=== PATIENT | female | born 1975 | race Caucasian/White ===

== ENCOUNTER 2020-01-26 08:23 | Emergency (ER) | payer BC, SELFPAY ==
[2020-01-26 08:43] VITALS: BP 139/92; PULSE 112; RESP 18; TEMP 37.1; O2SAT 98; BMI 40.4
--- NOTE | 2020-01-26 09:40 | ED.GENADULT ---
HPI - General Adult General Chief complaint: General Medical Stated complaint: CHEST PAIN Time Seen by Provider: 01/26/20 12:22 History of Present Illness HPI narrative: patient presents to ED for sharp like chest pain for the past 3 days. Patient denies any chest pain on inspiration. Patient states no coughing, fever, or chills. Patient states pain radiating down arm and going up to the jaw. Patient denies any swelling of lower extremities, calf pain, coughing up blood, recent long travel, recent surgery, control use, or recent trauma. Related Data Allergies Allergy/AdvReac Type Severity Reaction Status Date / Time amoxicillin [From AUGMENTIN] Allergy Severe ANAPHYLAXIS Verified 01/26/20 08:49 cephalexin [CEPHALEXIN] Allergy Severe SWELLING Verified 01/26/20 08:49 clavulanic acid Allergy Severe ANAPHYLAXIS Verified 01/26/20 08:49 [From AUGMENTIN] clindamycin [CLINDAMYCIN] Allergy Severe TONGUE Verified 01/26/20 08:49 SWELLING codeine Allergy Severe PASSED OUT Verified 01/26/20 08:49 influenza virus vaccine, Allergy Severe ANAPHYLAXIS Verified 01/26/20 08:49 specific [FLU VACCINE] fluconazole Allergy Intermediate HIVES Verified 01/26/20 08:49 gentamicin [GENTAMICIN] Allergy Intermediate RASH Verified 01/26/20 08:49 oxycodone Allergy Intermediate SOB Verified 01/26/20 08:49 acetaminophen [Percocet] Allergy Unknown Difficulty Verified 01/26/20 08:49 Breathing Clindamycin HCl Allergy Unknown Anaphylaxis Verified 01/26/20 08:49 midazolam Allergy Unknown Vomiting Verified 01/26/20 08:49 seafood Allergy Unknown anaphylaxis Verified 01/26/20 08:49 Sulfa (Sulfonamide Allergy Unknown Vomiting Verified 01/26/20 08:49 Antibiotics) sulfamethoxazole Allergy Unknown UNKNOWN Verified 01/26/20 08:49 [From BACTRIM] trimethoprim [From BACTRIM] Allergy Unknown UNKNOWN Verified 01/26/20 08:49 From VERSED Allergy Severe SEVERE Uncoded 12/21/19 15:49 VOMITING bactrim Allergy Unknown oral Uncoded 12/06/19 00:00 swelling Codeine Phosphate Allergy Unknown Anaphylaxis Uncoded 01/26/20 08:49 CT Scan dye Allergy Unknown Anaphylaxis Uncoded 01/26/20 08:49 DEFINITY Allergy Unknown Anaphylaxis Uncoded 01/26/20 08:49 diflucan Allergy Unknown hives Uncoded 12/06/19 00:00 flu vaccine Allergy Unknown anaphylaxis Uncoded 12/06/19 00:00 Gentamicin Sulfate Allergy Unknown Vomiting Uncoded 01/26/20 08:49 versed Allergy Unknown vomiting Uncoded 12/06/19 00:00 Review of Systems Review of Systems: Patient admits to sharp stabbing chest pain. Patient denies any shortness of breath on inspiration, patient denies any chest pain on inspiration, coughing up blood, swelling of lower extremities, calf pain, fever, chills, night sweats, weakness, abdominal pain, diarrhea, nausea, or vomiting. [facility] Past Medical History Medical History (Updated 01/26/20 @ 12:39 by BRITNEY Chao) Asthma Carotid artery disease Fibromyalgia HTN (hypertension) Kidney stones Migraine PAC (premature atrial contraction) PVC (premature ventricular contraction) Vertigo Surgical History (Updated 01/26/20 @ 08:51 by Ana Phelps) History of partial hysterectomy Social History Social History Alcohol intake: never Smoked in Last 30 Days: No Use of substances other than those prescribed or required for medical reasons: No Advance Directives: No Advance Directives Information Provided: Yes Physical Exam Vital Signs: Vital Signs: Vital Signs Temp Pulse Resp BP Pulse Ox 01/26/20 08:43 98.8 F 112 H 18 139/92 H 98 Body Mass Index 40.4 Const: General: cooperative, healthy appearing, comfortable, no acute distress, well developed, alert and awake Orientation/consciousness: oriented to person, oriented to place, oriented to time and patient oriented x3 HENMT: Head: Yes normal to inspection Eyes: General: appearance normal, both eyes and all related structures Neck: Neck: Yes normal visual inspection, Yes full ROM and Yes no lymphadenopathy Chest: Chest palpation & inspection: normal inspection of the chest and normal palpation of entire chest wall Resp: Effort & Inspection: normal respiratory effort Cardio: Jugular venous distension: no JVD Heart sounds: S1 normal heart sound present and S2 normal heart sound present GI: Inspection: Yes normal to inspection and No abdominal wall ecchymosis Percussion: Yes normal to percussion : General: No CVA tenderness and Yes no CVA tenderness Back/Spine/Pelvis: Back: no CVA tenderness, No CVA tenderness and No back tenderness Skin: General skin exam: no rashes or lesions noted Neuro: General: oriented to person, oriented to place, oriented to time, patient oriented x3, gait normal and CN's II-XI intact bilaterally Cranial nerves: Yes CN's II-XII intact bilaterally Extrem: Other: Lower extremities negative for any swelling, pitting edema, or calf pain. Negative for any redness. Course Course Course Narrative: Patient will be evaluated for possible CT. EKG will be done, labs including troponin. Coags, and D-dimer. Reevaluation(s) Reevaluation #1: Patient's D-dimer came back negative at 265. Patient's perc score is 1. Patient states presently patient has no chest pain and likes to be discharged. 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 Patient troponin negative after 3 days of symptoms. HR 92 on monitor before discharge. Time: 12:36 Medical Decision Making MDM Narrative Medical decision making narrative: chest pain. history physical exam does not indicate CT or PE. Chest x-ray negative for pneumonia, pneumothorax, hemothorax. Lab Data Result diagrams: 01/26/20 10:15 01/26/20 10:15 Labs: Lab Results 01/26/20 01/26/20 01/26/20 Range/Units 10:15 10:15 10:15 WBC 10.9 H (4.8-10.8) X10*3/uL RBC 4.53 (4.20-5.50) X10*6/uL Hgb 13.1 (12.0-16.0) g/dl Hct 39.5 (37-47) % MCV 87.2 (80-98) fL MCH 28.9 (27.0-33.0) pg MCHC 33.2 (31.0-35.0) g/dl RDW 12.8 (11.0-16.0) % Plt Count 245 (160-400) X10*3/uL MPV 10.2 (9.4-12.3) fL Immature Gran % (Auto) 0.5 H (0.0-0.4) % Neut % (Auto) 68.8 (45-73) % Lymph % (Auto) 16.7 L (20-40) % [place] % (Auto) 4.8 (2-11) % Eos % (Auto) 8.4 H (0-4) % Baso % (Auto) 0.8 (0-2) % Lymph # (Auto) 1.8 (1.2-4.9) X10*3/uL [place] # (Auto) 0.5 (0.1-1.2) X10*3/uL Eos # (Auto) 0.9 H (0.0-0.4) X10*3/uL Baso # (Auto) 0.1 (0.0-0.2) X10*3/uL Abs Immat Gran (auto) 0.06 H (0.00-0.03) X10*3/uL Absolute Neuts (auto) 7.5 (2.0-8.3) X10*3/uL Absolute Nucleated RBC 0.000 (0.0-0.012) X10*3/uL Nucleated RBC % (auto) 0.0 (0.0-0.2) /100WBC PT 12.6 (10.8-13.0) SEC INR 1.1 (0.9-1.1) APTT 31.3 (24.1-38.0) SEC D-Dimer 265 NG/ML Sodium 139 (135-145) mmol/L Potassium 3.9 (3.3-5.1) mmol/l Chloride 106 (96-108) mmol/L Carbon Dioxide 25 (22-29) mmol/L Anion Gap 12 (12-20) BUN 11 (9-16) mg/dL Creatinine 0.80 (0.5-1.4) mg/dL Estim Creat Clear Calc 96.2 Estimated GFR > 60 Random Glucose 84 (60-115) mg/dL Calcium 8.3 L (8.4-10.2) mg/dL Total Bilirubin 0.7 (0.0-1.0) mg/dL AST 16 (5-31) U/L ALT 19 (0-31) U/L Alkaline Phosphatase 102 (39-117) U/L Troponin I High Sens (<3.5-17.0) ng/L Total Protein 6.8 (6.5-8.0) g/dL Albumin 3.9 (3.5-5.0) g/dL Beta HCG, Quant < 2 mIU/mL 01/26/20 Range/Units 10:15 WBC (4.8-10.8) X10*3/uL RBC (4.20-5.50) X10*6/uL Hgb (12.0-16.0) g/dl Hct (37-47) % MCV (80-98) fL MCH (27.0-33.0) pg MCHC (31.0-35.0) g/dl RDW (11.0-16.0) % Plt Count (160-400) X10*3/uL MPV (9.4-12.3) fL Immature Gran % (Auto) (0.0-0.4) % Neut % (Auto) (45-73) % Lymph % (Auto) (20-40) % [place] % (Auto) (2-11) % Eos % (Auto) (0-4) % Baso % (Auto) (0-2) % Lymph # (Auto) (1.2-4.9) X10*3/uL [place] # (Auto) (0.1-1.2) X10*3/uL Eos # (Auto) (0.0-0.4) X10*3/uL Baso # (Auto) (0.0-0.2) X10*3/uL Abs Immat Gran (auto) (0.00-0.03) X10*3/uL Absolute Neuts (auto) (2.0-8.3) X10*3/uL Absolute Nucleated RBC (0.0-0.012) X10*3/uL Nucleated RBC % (auto) (0.0-0.2) /100WBC PT (10.8-13.0) SEC INR (0.9-1.1) APTT (24.1-38.0) SEC D-Dimer NG/ML Sodium (135-145) mmol/L Potassium (3.3-5.1) mmol/l Chloride (96-108) mmol/L Carbon Dioxide (22-29) mmol/L Anion Gap (12-20) BUN (9-16) mg/dL Creatinine (0.5-1.4) mg/dL Estim Creat Clear Calc Estimated GFR Random Glucose (60-115) mg/dL Calcium (8.4-10.2) mg/dL Total Bilirubin (0.0-1.0) mg/dL AST (5-31) U/L ALT (0-31) U/L Alkaline Phosphatase (39-117) U/L Troponin I High Sens < 3.5 (<3.5-17.0) ng/L Total Protein (6.5-8.0) g/dL Albumin (3.5-5.0) g/dL Beta HCG, Quant mIU/mL ECG Data Interpretation: Sinus tachycardia, ventricular rate 102, QRS 76, RI interval 130. Old T-wave abnormality in inferior leads. Discharge Plan Discharge Clinical Impression: Chest pain Patient Disposition: Elopement Instructions: Chest Pain (ED) Additional Instructions: Return to the ED immediately for worsening chest pain, shortness of breath, chest pain on exertion, swelling of lower extremities, calf pain, coughing up blood, fever, chills, severe chest pain on inspiration, or any other concerning symptoms. Referrals: Mitchell Denton MD [Physician] - 2 days ( Chest pain. Troponin negative after 3 days. D-dimer negative. Chest x-ray normal) Interventions: ED Discharge Assessment Last Done: 01/26/20 12:53 Discharge Date/Time: 01/26/20 12:54 Print Language: Serbian
--- NOTE | 2020-01-26 09:45 | ECG_ITS ---
Test Reason : CP Blood Pressure : / mmHG Vent. Rate : 102 BPM Atrial Rate : 102 BPM P-R Int : 130 ms QRS Dur : 076 ms QT Int : 330 ms P-R-T Axes : 022 007 -20 degrees QTc Int : 430 ms Sinus tachycardia Nonspecific ST abnormality Lateral leads Nonspecific T wave abnormality Inferior leads Abnormal ECG When compared with ECG of 26-FEB-2019 17:31, No significant change was found Referred By: Tirso Barr Electronically Signed By:AARON MCDANIELS MD
--- NOTE | 2020-01-26 09:45 | XR_ITS ---
EXAMINATION: XR CHEST CLINICAL INFORMATION: Chest pain COMPARISON: February 26, 2019 TECHNIQUE: 2 views of the chest were obtained. FINDINGS: No significant abnormality is noted involving the heart, lungs, mediastinum, bony thorax or soft tissues. XR/XR chest 2V IMPRESSION: No acute disease.
[2020-01-26 10:21] LABS: MANUAL DIFF FLAG NO
[2020-01-26 10:30] LABS: Basophils Absolute Auto 0.1 X10*3/uL (0.0-0.2); Basophils Percent Auto 0.8 % (0-2); Eosinophils Absolute Auto 0.9 X10*3/uL (0.0-0.4); Eosinophils Percent Auto 8.4 % (0-4); Hematocrit 39.5 % (37-47); Hemoglobin 13.1 g/dl (12.0-16.0); Imm Gran Abs Auto 0.06 X10*3/uL (0.00-0.03); Imm Gran Pct Auto 0.5 % (0.0-0.4); Lymphocytes Absolute Auto 1.8 X10*3/uL (1.2-4.9); Lymphocytes Percent Auto 16.7 % (20-40); Mean Corpuscular HGB Conc 33.2 g/dl (31.0-35.0); Mean Corpuscular Hemoglobin 28.9 pg (27.0-33.0); Mean Corpuscular Volume 87.2 fL (80-98); Mean Platelet Volume 10.2 fL (9.4-12.3); Monocytes Absolute Auto 0.5 X10*3/uL (0.1-1.2); Monocytes Percent Auto 4.8 % (2-11); Neutrophils Absolute Auto 7.5 X10*3/uL (2.0-8.3); Neutrophils Percent Auto 68.8 % (45-73); Platelet Count 245 X10*3/uL (160-400); Red Blood Count 4.53 X10*6/uL (4.20-5.50); Red Cell Distribution Width 12.8 % (11.0-16.0); White Blood Count 10.9 X10*3/uL (4.8-10.8)
[2020-01-26 10:38] LABS: INTERNATIONAL NORM RATIO 1.1 (0.9-1.1); Prothrombin Time 12.6 SEC (10.8-13.0)
[2020-01-26 10:40] LABS: Partial Thromboplastin Time 31.3 SEC (24.1-38.0)
[2020-01-26 10:41] LABS: D Dimer 265 NG/ML
[2020-01-26 10:44] LABS: Alanine Aminotransferase 19 U/L (0-31); Albumin Level 3.9 g/dL (3.5-5.0); Alkaline Phosphatase 102 U/L (39-117); Anion Gap 12 (12-20); Aspartate Amino Transferase 16 U/L (5-31); Bilirubin Total 0.7 mg/dL (0.0-1.0); Blood Urea Nitrogen 11 mg/dL (9-16); Calcium 8.3 mg/dL (8.4-10.2); Carbon Dioxide 25 mmol/L (22-29); Chloride 106 mmol/L (96-108); Creatinine Clr Calc Pharmacy 96.2; Estimated Glomerular Filt Rate > 60; Glucose Random 84 mg/dL (60-115); Potassium 3.9 mmol/l (3.3-5.1); Sodium 139 mmol/L (135-145); Total Protein 6.8 g/dL (6.5-8.0)
[2020-01-26 10:50] LABS: HCG Quantitative < 2 mIU/mL; Troponin-I High Sensitivity < 3.5 ng/L (<3.5-17.0)
== END 2020-01-26 12:54 | disposition left against medical advice (07) ==
PROVIDERS: Physician Assistant; Emergency Provider Emergency Medicine
DX: R07.9 Chest pain, unspecified (principal); I10 Essential (primary) hypertension; J45.909 Unspecified asthma, uncomplicated
CPT/HCPCS: 36415; 71046; 80053; 84484; 84702; 85025; 85379; 85610; 85730; 93005; 99284

== ENCOUNTER → 2020-02-05 08:21 | Outpatient (BNVA) | payer BC, SELFPAY | PROVIDERS: Visit Provider Internal Medicine | DX: R00.2 Palpitations (principal); R07.89 Other chest pain; I47.2 Ventricular tachycardia; I49.1 Atrial premature depolarization; I10 Essential (primary) hypertension; Z79.2 Long term (current) use of antibiotics; Z79.899 Other long term (current) drug therapy ==

== ENCOUNTER → 2020-05-21 08:26 | Outpatient (BNVA) | payer BC, SELFPAY | PROVIDERS: Visit Provider Internal Medicine ==

== ENCOUNTER → 2020-05-27 11:08 | Outpatient (BNVA) | payer BC, SELFPAY | PROVIDERS: PCP Nurse Practitioner Gerontology; Visit Provider Internal Medicine Gastroenterology ==

== ENCOUNTER 2020-06-02 13:00 | Outpatient (REF) | payer BC, SELFPAY ==
[2020-06-04 14:12] LABS: FIT Int Ctl YES; FIT1 NEGATIVE (NEGATIVE); FIT2 NEGATIVE (NEGATIVE)
== END 2020-06-02 13:01 | disposition home or self-care (01) ==
LOC: HO.LNP 13:00
PROVIDERS: Visit Provider Internal Medicine Gastroenterology
DX: Z12.11 Encounter for screening for malignant neoplasm of colon (principal)
CPT/HCPCS: 82274

== ENCOUNTER 2020-06-18 19:17 | Emergency (ER) | payer BC, SELFPAY ==
--- NOTE | ~2020-06-18 | CT_ITS ---
EXAMINATION: CT HEAD WITHOUT CONTRAST CLINICAL INFORMATION: Severe headaches. COMPARISON: MRI from 07/11/2015. TECHNIQUE: Contiguous axial imaging was performed from the skull base to vertex without intravenous administration of contrast. This CT examination was performed using dose optimization techniques as appropriate, variously including the following: *Automated exposure control *Adjustment of mA and/or kV according to patient size (this includes techniques or standardized protocols for targeted exams where dose is matched to indication/reason for exam; i.e. extremities or head) *Use of iterative reconstruction technique DLP: 762 mGy-cm FINDINGS: There is no evidence of acute intracranial hemorrhage or territorial infarction. No abnormal mass effect or midline shift is seen. [place] to white matter differentiation is well preserved. No extra-axial fluid collections are identified. The ventricles are normal in size. There is no abnormal attenuation within the brain parenchyma. The osseous structures and soft tissues are normal. The mastoid air cells and visualized portions of the paranasal sinuses are well aerated. CT/CT head/brain wo con IMPRESSION: No acute intracranial pathology. Normal CT scan of the head.
[2020-06-18 19:21] VITALS: BP 162/81; PULSE 104; RESP 18; TEMP 36.7; O2SAT 100; BMI 40.4
[2020-06-18 21:41] VITALS: BP 147/94; PULSE 95; RESP 19; TEMP 36.5; O2SAT 98
--- NOTE | 2020-06-18 22:11 | ED.GENADULT ---
HPI - General Adult General Chief complaint: Headache Stated complaint: HIGH BP Time Seen by Provider: 06/18/20 21:49 Source: patient Mode of arrival: ambulatory Limitations: no limitations History of Present Illness HPI narrative: Patient comes emergency room complaining of high blood pressure and headache. Patient states that she is being seen by Cardiology for high blood pressure, she takes diltiazem 120 mg twice a day and p.r.n. losartan. This afternoon, patient's blood pressure was in the 170s, did take losartan in addition to her diltiazem, did not bring the pressure down, started having a headache. Patient states she also had chest pressure while her blood pressure was elevated. Patient called her instantizer operator who instructed her to come to the emergency room. Patient states she is concerned about headaches because she has history of an aneurysm, she is scheduled for an MRI in the next couple of days. Related Data Home Medications Medication Instructions Recorded Confirmed diltiazem HCl 120 mg 120 mg PO BID 02/05/20 06/18/20 capsule,extended release 24 hr ibuprofen 800 mg tablet 800 mg PO TID PRN 02/05/20 06/18/20 losartan 25 mg tablet 25 mg PO DAILY PRN 02/05/20 06/18/20 meclizine 1 tab PO TID PRN 06/18/20 06/18/20 Previous Rx's Medication Instructions Recorded sumatriptan succinate [Imitrex] 25 mg PO Q2-4H PRN #7 tab 06/18/20 Allergies Allergy/AdvReac Type Severity Reaction Status Date / Time amoxicillin [From AUGMENTIN] Allergy Severe ANAPHYLAXIS Verified 06/18/20 19:20 cephalexin [CEPHALEXIN] Allergy Severe SWELLING Verified 06/18/20 19:20 clavulanic acid Allergy Severe ANAPHYLAXIS Verified 06/18/20 19:20 [From AUGMENTIN] clindamycin [CLINDAMYCIN] Allergy Severe TONGUE Verified 06/18/20 19:20 SWELLING codeine Allergy Severe PASSED OUT Verified 06/18/20 19:20 influenza virus vaccine, Allergy Severe ANAPHYLAXIS Verified 06/18/20 19:20 specific [FLU VACCINE] fluconazole Allergy Intermediate HIVES Verified 06/18/20 19:20 gentamicin [GENTAMICIN] Allergy Intermediate RASH Verified 06/18/20 19:20 oxycodone Allergy Intermediate SOB Verified 06/18/20 19:20 sulfamethoxazole Allergy Mild swelling Verified 06/18/20 19:20 [From Bactrim] trimethoprim [From Bactrim] Allergy Mild swelling Verified 06/18/20 19:20 acetaminophen [Percocet] Allergy Unknown Difficulty Verified 06/18/20 19:20 Breathing midazolam Allergy Unknown Vomiting Verified 06/18/20 19:20 seafood Allergy Unknown anaphylaxis Verified 06/18/20 19:20 Sulfa (Sulfonamide Allergy Unknown Vomiting Verified 06/18/20 19:20 Antibiotics) perflutren [From Definity] Allergy hives Verified 06/18/20 19:20 From VERSED Allergy Severe SEVERE Uncoded 05/21/20 08:[address] Scan dye Allergy Unknown Anaphylaxis Uncoded 05/21/20 08:28 Review of Systems Review of Systems: Constitutional : No Weight loss, No Fever, No Chills, No Night Sweats, No Fatigue, No Malaise ENT/Mouth : No Hearing loss, No Ear Pain, No Nasal Congestion, No Sinus Pain, No Hoarseness, No sore throat, No Rhinorrhea, No Swallowing Difficulty Eyes: No Eye Pain, No Swelling, No Redness, No Foreign Body, No Discharge, No Vision Changes Cardiovascular : Episode of chest pain while having hypertension, now resolved, No SOB, No Dyspnea on Exertion, No Orthopnea, No Edema, No Palpitations Respiratory : No Cough, No Sputum, No Wheezing, No Smoke Exposure, No Dyspnea Gastrointestinal : No Nausea, No Vomiting, No Diarrhea, No Constipation, No abdominal Pain, No Hematochezia, No Melena Genitourinary : no irregular bleeding, No Dysuria, No Urinary Frequency, No Hematuria, No Urinary Incontinence, No Urgency, No Flank Pain, No Urinary Flow Changes, No Hesitancy Musculoskeletal : No joint pain, No Myalgias, No Joint Swelling Skin : No Skin Lesions, No rash Neuro : No Weakness, No Numbness, No Paresthesias, No Loss of Consciousness, No Dizziness, complaining of headache while blood pressure was elevated Psych : No Anxiety/Panic, No Depression, No SI/HI/AH/VH, No Social Issues, Heme/Lymph: No Bruising, No Bleeding,No Lymphadenopathy Endocrine : No Polyuria, No Polydipsia, No Temperature Intolerance PMFSH Past Medical History Medical History (Updated 06/18/20 @ 23:49 by Misti Culver MD) Abdominal pain Asthma Atypical chest pain Carotid artery disease Essential hypertension Fibromyalgia H/O ganglion cyst HTN (hypertension) Kidney stones Migraine Morbid obesity with BMI of 40.0-44.9, adult NSVT (nonsustained ventricular tachycardia) PAC (premature atrial contraction) Palpitations PVC (premature ventricular contraction) Vertigo Surgical History History of partial hysterectomy Family History Family History (Updated 05/27/20 @ 11:34 by Anne Marie Cloud) Father Skin cancer Cardiovascular disease Myocardial infarction Hypertension IBS (irritable bowel syndrome) Mother Hypertension Sister Myocardial infarction Hypertension Heartburn Paternal Uncle Colon cancer Paternal Grandmother Colon cancer Social History Social History (Updated 05/27/20 @ 11:35 by Anne Marie Cloud) Household Members: Children Alcohol intake: current Alcohol intake frequency: does not drink Smoking Status: Never smoker Advance Directives: No Advance Directives Information Provided: Yes Physical Exam Vital Signs: Vital Signs: Last Vital Signs Temp 97.7 F 06/18/20 21:41 Pulse 88 06/18/20 22:59 Resp 16 06/18/20 22:59 BP 127/88 06/18/20 22:59 Pulse Ox 98 06/18/20 22:59 Body Mass Index 40.4 Appearance: Alert. Oriented X3. No acute distress. Eyes: Pupils equal, round and reactive to light. ENT: Pharynx normal. Neck: Normal inspection. Neck supple. No lymph nodes noted. No crepitus CVS: Normal heart rate and rhythm. Pulses normal. Respiratory: No respiratory distress. Breath sounds normal. No Wheezing. No rales Abdomen: Soft and nontender. No rigidity. No distention. Skin: Skin warm and dry. Normal skin color. Normal skin turgor. Extremities: No lower extremity edema. No lower extremity edema. No Lacerations. No Rash Neuro: Oriented X 3. No motor deficit. No sensory deficit. Moving all extermities. No slurred speech. Course Course Course Narrative: Patient states that she feels much better, patient states that she has had Imitrex in the past, and usually works well for her migraines. Patient has no chest pain, no shortness of breath, patient states she feels very well now. Medical Decision Making Lab Data Result diagrams: 06/18/20 22:36 06/18/20 22:35 Labs: Lab Results 06/18/20 06/18/2021 Range/Units 22:35 22:35 22:36 WBC 12.5 H (4.8-10.8) X10*3/uL RBC 4.52 (4.20-5.50) X10*6/uL Hgb 13.5 (12.0-16.0) g/dl Hct 40.3 (37-47) % MCV 89.2 (80-98) fL MCH 29.9 (27.0-33.0) pg MCHC 33.5 (31.0-35.0) g/dl RDW 12.9 (11.0-16.0) % Plt Count 275 (160-400) X10*3/uL MPV 9.9 (9.4-12.3) fL Immature Gran % (Auto) 0.5 H (0.0-0.4) % Neut % (Auto) 65.0 (45-73) % Lymph % (Auto) 24.3 (20-40) % [place] % (Auto) 5.9 (2-11) % Eos % (Auto) 3.7 (0-4) % Baso % (Auto) 0.6 (0-2) % Lymph # (Auto) 3.1 (1.2-4.9) X10*3/uL [place] # (Auto) 0.7 (0.1-1.2) X10*3/uL Eos # (Auto) 0.5 H (0.0-0.4) X10*3/uL Baso # (Auto) 0.1 (0.0-0.2) X10*3/uL Abs Immat Gran (auto) 0.06 H (0.00-0.03) X10*3/uL Absolute Neuts (auto) 8.1 (2.0-8.3) X10*3/uL Absolute Nucleated RBC 0.000 (0.0-0.012) X10*3/uL Nucleated RBC % (auto) 0.0 (0.0-0.2) /100WBC Sodium 139 (135-145) mmol/L Potassium 3.9 (3.3-5.1) mmol/L Chloride 106 (96-108) mmol/L Carbon Dioxide 24 (22-29) mmol/L Anion Gap 13 (12-20) BUN 15 (9-16) mg/dL Creatinine 0.74 (0.5-1.4) mg/dL Estim Creat Clear Calc 104.0 Estimated GFR > 60 Random Glucose 76 (60-115) mg/dL Calcium 8.8 D (8.4-10.2) mg/dL Troponin I High Sens < 3.5 (<3.5-17.0) ng/L Imaging Data CT scan - head: Radiologist's impression: There is no evidence of acute intracranial hemorrhage or territorial infarction. No abnormal mass effect or midline shift is seen. [place] to white matter differentiation is well preserved. No extra-axial fluid collections are identified. The ventricles are normal in size. There is no abnormal attenuation within the brain parenchyma. The osseous structures and soft tissues are normal. The mastoid air cells and visualized portions of the paranasal sinuses are well aerated. CT/CT head/brain wo con IMPRESSION: No acute intracranial pathology. Normal CT scan of the head. ECG Data Attestation: I personally reviewed and interpreted this ECG as follows: (Sinus rhythm, heart rate 88, no academic affairs assistant depression or elevation, nonspecific T-wave inversion in lead 3, QTC 440) Discharge Plan Discharge Clinical Impression: Migraine Qualifiers: Migraine type: unspecified Status migrainosus presence: without status migrainosus Intractability: not intractable Qualified Code(s): G43.909 - Migraine, unspecified, not intractable, without status migrainosus Hypertension Qualifiers: Hypertension type: unspecified Qualified Code(s): I10 - Essential (primary) hypertension Patient Disposition: Home, Self-Care Instructions: Migraine Headache (ED), Hypertension (ED) Additional Instructions: Please follow-up with your primary care physician tomorrow. If you have any worsening or new symptoms, please return to the emergency room or call 911 Prescriptions: New sumatriptan succinate [Imitrex] 25 mg tablet 25 mg PO Q2-4H PRN (Reason: migraine headache) Qty: 7 RF: 0 No Action meclizine 12.5 mg tablet 1 tab PO TID PRN (Reason: Vertigo) RF: 0 losartan 25 mg tablet 25 mg PO DAILY PRN (Reason: IF BLOOD PRESSURE STILL HIGH) RF: 0 ibuprofen 800 mg tablet 800 mg PO TID PRN (Reason: pain) RF: 0 diltiazem HCl 120 mg capsule,extended release 24hr 120 mg PO BID RF: 0
--- NOTE | 2020-06-18 22:14 | ECG_ITS ---
Test Reason : HEADACHE Blood Pressure : / mmHG Vent. Rate : 088 BPM Atrial Rate : 088 BPM P-R Int : 142 ms QRS Dur : 078 ms QT Int : 364 ms P-R-T Axes : 027 003 -02 degrees QTc Int : 440 ms Normal sinus rhythm Minimal voltage criteria for LVH, may be normal variant Borderline ECG When compared with ECG of 26-JAN-2020 08:35, Nonspecific T wave abnormality no longer evident in Anterior leads Referred By: Misti Culver Electronically Signed By:GUI UMAÑA MD
[2020-06-18 22:40] LABS: MANUAL DIFF FLAG NO
[2020-06-18 22:42] LABS: Basophils Absolute Auto 0.1 X10*3/uL (0.0-0.2); Basophils Percent Auto 0.6 % (0-2); Eosinophils Absolute Auto 0.5 X10*3/uL (0.0-0.4); Eosinophils Percent Auto 3.7 % (0-4); Hematocrit 40.3 % (37-47); Hemoglobin 13.5 g/dl (12.0-16.0); Imm Gran Abs Auto 0.06 X10*3/uL (0.00-0.03); Imm Gran Pct Auto 0.5 % (0.0-0.4); Lymphocytes Absolute Auto 3.1 X10*3/uL (1.2-4.9); Lymphocytes Percent Auto 24.3 % (20-40); Mean Corpuscular HGB Conc 33.5 g/dl (31.0-35.0); Mean Corpuscular Hemoglobin 29.9 pg (27.0-33.0); Mean Corpuscular Volume 89.2 fL (80-98); Mean Platelet Volume 9.9 fL (9.4-12.3); Monocytes Absolute Auto 0.7 X10*3/uL (0.1-1.2); Monocytes Percent Auto 5.9 % (2-11); Neutrophils Absolute Auto 8.1 X10*3/uL (2.0-8.3); Platelet Count 275 X10*3/uL (160-400); Red Blood Count 4.52 X10*6/uL (4.20-5.50); Red Cell Distribution Width 12.9 % (11.0-16.0); White Blood Count 12.5 X10*3/uL (4.8-10.8)
[2020-06-18 22:55] VITALS: RESP 18
[2020-06-18] MEDS: Morphine Sulfate 2 MG/ML CARTRIDGE IVPUSH (22:55)
[2020-06-18] MEDS: Metoclopramide HCl 10 MG/2 ML VIAL IVPUSH (22:55)
[2020-06-18 22:56] VITALS: BP 127/88; PULSE 88
[2020-06-18] MEDS: dilTIAZem HCL CD 120 MG CAP.ER.DEG PO (22:56)
[2020-06-18 22:59] VITALS: BP 127/88; PULSE 88; RESP 16; O2SAT 98
[2020-06-18 23:13] LABS: Anion Gap 13 (12-20); Blood Urea Nitrogen 15 mg/dL (9-16); Calcium 8.8 mg/dL (8.4-10.2); Carbon Dioxide 24 mmol/L (22-29); Chloride 106 mmol/L (96-108); Estimated Glomerular Filt Rate > 60; Glucose Random 76 mg/dL (60-115); Potassium 3.9 mmol/L (3.3-5.1); Sodium 139 mmol/L (135-145)
[2020-06-18 23:19] LABS: Troponin-I High Sensitivity < 3.5 ng/L (<3.5-17.0)
== END 2020-06-18 23:56 | disposition home or self-care (01) ==
PROVIDERS: Emergency Provider Emergency Medicine
DX: G43.909 Migraine, unspecified, not intractable, without status migrainosus (principal); I10 Essential (primary) hypertension
CPT/HCPCS: 36415; 70450; 80048; 84484; 85025; 93005; 96374; 96375; 99283; 99284; J2270; J2765

== ENCOUNTER → 2020-10-02 11:26 | Outpatient (BNVA) | payer BC, SELFPAY | PROVIDERS: PCP Nurse Practitioner Gerontology; Visit Provider Physician Assistant ==

== ENCOUNTER → 2020-10-09 12:25 | Outpatient (BNVA) | payer BC, SELFPAY | PROVIDERS: PCP Nurse Practitioner Gerontology; Referring Provider Nurse Practitioner Gerontology; Visit Provider Internal Medicine | DX: I49.1 Atrial premature depolarization (principal); I47.2 Ventricular tachycardia; I10 Essential (primary) hypertension; R00.2 Palpitations; R07.89 Other chest pain | CPT/HCPCS: 93005 ==

== ENCOUNTER 2020-10-28 07:07 | Outpatient (REF) | payer BC, SELFPAY ==
--- NOTE | ~2020-10-28 | US_ITS ---
EXAMINATION: US ABDOMEN LIMITED WITH LIVER ELASTOGRAPHY CLINICAL INFORMATION: Fatty liver COMPARISON: Previous CT of the abdomen and pelvis July 2017 TECHNIQUE: Real-time imaging of the abdominal viscera. Noninvasive ultrasound liver fibrosis assessment is performed using Foster ElastPQ point quantification shear wave elastography (pSWE) with a C5-2 MHz transducer. Multiple elastography samples are obtained. FINDINGS: PANCREAS: Normal. LIVER: Normal. The liver demonstrates normal size, contour and echogenicity. There are multiple liver cysts. Largest measures 7 x 6 x 9 mm in the right lobe. No intrahepatic biliary duct dilatation. The right lobe measures 13.4 cm in length. The left lobe measures 10.6 cm in length. Portal flow is normal/hepatopedal. LIVER ELASTOGRAPHY: 1.15 IQR divided by median: 0.15 GALLBLADDER: The gallbladder is normal in size. No gallstones are seen. The gallbladder is normal. COMMON BILE DUCT: The common bile duct is normal in caliber measuring 0.2 cm. RIGHT KIDNEY: The right kidney is normal in size, shape and contour. The right kidney measures 11.5 cm in length. There is a 9 mm cyst in the midpole. There is no ascites. US/US abdomen merino w elastography IMPRESSION: Multiple small liver cysts. Normal elastography exam/normal liver stiffness. REFERENCE: Society of Radiologists in Ultrasound Liver Stiffness Thresholds (2020): LIVER STIFFNESS THRESHOLDS: *Liver Stiffness equal or less than 1.3 m/s: High probability of being normal. *Liver Stiffness less than 1.7 m/s: In the absence of other known clinical signs, rules out compensated advanced chronic liver disease. *Liver Stiffness 1.7-2.1 m/s: Suggestive of compensated advanced chronic liver disease but need further test for confirmation. *Liver Stiffness over 2.1 m/s: Rules in compensated advanced chronic liver disease. *Liver Stiffness over 2.4 m/s: Suggestive of clinically significant portal hypertension. QUALITY OF DATA SET: *IQR/Median value equal or less than 0.15 implies a quality data set. *IQR/Median value over 0.15 implies a poor quality data set. SIGNIFICANT CHANGE FROM PRIOR EXAM: Significant change if liver stiffness measurement is 10% or greater from prior exam. OTHER CONSIDERATIONS: The stage of liver fibrosis may be overestimated in the setting of acute hepatitis, liver inflammation, elevated liver function tests, hepatic vascular congestion, obstructive cholestasis, non-fasting state, and infiltrative diseases such as amyloidosis and lymphoma. In some patients with NAFLD, the liver stiffness thresholds for compensated advanced chronic liver disease may be lower. In causes other than viral hepatitis and NAFLD, liver stiffness thresholds are not well established.
[2020-10-28 07:57] LABS: Alanine Aminotransferase 26 U/L (0-31); Alkaline Phosphatase 107 U/L (39-117); Aspartate Amino Transferase 19 U/L (5-31); Bilirubin Direct 0.3 mg/dL (0.0-0.5); Bilirubin Total 0.8 mg/dL (0.0-1.0); Cholesterol 198 mg/dL; HDL Cholesterol 40 mg/dL; LDL Cholesterol Calculated 134 mg/dl; Total Protein 6.9 g/dL (6.5-8.0); Triglycerides 120 mg/dL
[2020-11-01 14:51] LABS: FIB-ALT 26 U/L (6-29); FIB-Alpha-2-Macroglobulin 90 mg/dL (106-279); FIB-Apolipoprotein A1 127 mg/dL (101-198); FIB-GGT 111 U/L (3-55); FIB-Haptoglobin 138 mg/dL (43-212); FIB-Total Bilirubin 0.7 mg/dL (0.2-1.2); Liver Fibrosis Score 0.11; Liver Fibrosis Stage F0; Nec Inflam Act Grade A0; Nec Inflam Act Score 0.09
== END 2020-10-28 07:08 | disposition home or self-care (01) ==
LOC: HO.US 07:07
PROVIDERS: PCP Nurse Practitioner Gerontology; Visit Provider Physician Assistant
DX: B19.20 Unspecified viral hepatitis C without hepatic coma (principal); R10.11 Right upper quadrant pain; K76.0 Fatty (change of) liver, not elsewhere classified; Z87.19 Personal history of other diseases of the digestive system
CPT/HCPCS: 36415; 76705; 76981; 80061; 80076; 81596

== ENCOUNTER → 2020-11-04 08:14 | Outpatient (BNVA) | payer BC, SELFPAY | PROVIDERS: PCP Nurse Practitioner Gerontology; Visit Provider Internal Medicine ==

== ENCOUNTER → 2020-11-04 11:26 | Outpatient (REF) | payer BC, SELFPAY ==
--- NOTE | 2020-11-04 11:32 | ECG_ITS ---
Hook-up date: 2020-11-04 08:42:00 Duration: 47:59:00 Test Indications: R00.2 - Palpitations Medications: 334246 QRS complexes 1 Ventricular ectopics which represent <1 % of total QRS comp. 1 Supraventricular ectopics which represent <1 % of total QRS comp. * Paced QRS complexs which represent % of total QRS comp. VENTRICULAR ECTOPY 1 Isolated 0 Bigeminal Cycles 0 Couplets 0 Runs 0 Beats in Runs * Beats LONGEST at * BPM at :: -- * Beats FASTEST at * BPM at :: -- SUPRAVENTRICULAR ECTOPY 1 Isolated 0 Couplets 0 Runs 0 Beats in Runs * Beats LONGEST at * BPM at :: -- * Beats FASTEST at * BPM at :: -- HEART RATES 60 MIN at 03:25:21 2020-11-06 82 AVG 128 MAX at 09:35:55 2020-11-04 LONGEST RR 1.1840 secs at 13:51:39 2020-11-05 S-T LEVELS Channel 1 - 128 mm at 08:42:00 2020-11-04 - 128 mm at 08:42:00 2020-11-04 Channel 2 - 128 mm at 08:42:00 2020-11-04 - 128 mm at 08:42:00 2020-11-04 Channel 3 - 128 mm at 02:80:11 -- - 128 mm at 02:80:11 Underlying rhythm is sinus; Average ventricular rate 82/min; range 60-128/min; No significant ectopy, tachy or bradyarrhythmias; Patient did not return diary Referred By: Jl Stoddard Overread By: JL STODDARD
== END ==
LOC: HO.CARD 11:26
PROVIDERS: Visit Provider Internal Medicine
DX: R00.2 Palpitations (principal); I47.2 Ventricular tachycardia
CPT/HCPCS: 93226

== ENCOUNTER 2020-11-07 07:59 | Outpatient (REF) | payer BC, SELFPAY ==
--- NOTE | ~2020-11-07 | MM_ITS ---
EXAMINATION: MM SCREENING DIGITAL BREAST TOMOSYNTHESIS, BILATERAL CLINICAL INFORMATION: Screening. Asymptomatic. The lifetime risk of breast cancer based on the Tyrer-Cuzick Model is 19%. COMPARISON: Mammography: 11/02/2019, 08/27/2018, 08/03/2017 TECHNIQUE: Digital breast tomosynthesis is performed in both the craniocaudal and mediolateral oblique views along with computer-aided detection (CAD). Synthesized 2D images are generated from the tomosynthesis. FINDINGS: There are scattered areas of fibroglandular density (ACR BI-RADS breast composition Category b). Breast tissue composition borders on predominantly fatty. Background stromal and fibroglandular densities similar to prior studies. There are numerous dermal calcifications again noted at the bilateral posterior medial breasts. Skin contours are smooth. No significant changes. MM/MM tomosynthesis screening BI IMPRESSION: No mammographic evidence of malignancy. ASSESSMENT: BI-RADS 2: Benign RECOMMENDATION: Routine annual mammography screening. This patient's information was entered into a reminder system with a target due date for their next mammogram.
== END 2020-11-07 08:00 | disposition home or self-care (01) ==
LOC: HO.MAMMO 07:59
PROVIDERS: PCP Nurse Practitioner Gerontology; Visit Provider Nurse Practitioner Gerontology
DX: Z12.31 Encounter for screening mammogram for malignant neoplasm of breast (principal)
CPT/HCPCS: 77063; 77067

== ENCOUNTER → 2020-11-19 13:56 | Outpatient (BNVA) | payer BC, SELFPAY | PROVIDERS: PCP Nurse Practitioner Gerontology; Visit Provider Internal Medicine ==

== ENCOUNTER → 2020-11-26 13:07 | Outpatient (BNVA) | payer BC, SELFPAY | PROVIDERS: Visit Provider Physician Assistant ==

== ENCOUNTER 2020-12-02 14:53 | Outpatient (REF) | payer BC, SELFPAY ==
--- NOTE | ~2020-12-02 | US_ITS ---
EXAMINATION: US SCREENING ULTRASOUND BREAST, BILATERAL CLINICAL INFORMATION: Screening ultrasound. COMPARISON: Bilateral digital breast tomosynthesis 11/07/2020, bilateral screening breast ultrasound 04/14/2018. TECHNIQUE: Ultrasound is performed using grayscale imaging and color Doppler. Imaging is performed to include the four quadrants and retroareolar region. Both breasts are imaged. FINDINGS: Right breast: There is no suspicious finding by ultrasound. There is no cystic or solid mass or focal architectural abnormality. No focal duct ectasia. No skin thickening. Left breast: There is no suspicious finding by ultrasound. There is no cystic or solid mass or focal architectural abnormality. No focal duct ectasia. No skin thickening. US/US breast RT complete IMPRESSION: Normal bilateral screening breast ultrasound. ASSESSMENT: BI-RADS 1: Negative RECOMMENDATION: Routine annual mammography screening. This patient's information was entered into a reminder system with a target due date for their next mammogram.
--- NOTE | ~2020-12-02 | US_ITS ---
EXAMINATION: US SCREENING ULTRASOUND BREAST, BILATERAL CLINICAL INFORMATION: Screening ultrasound. COMPARISON: Bilateral digital breast tomosynthesis 11/07/2020, bilateral screening breast ultrasound 04/14/2018. TECHNIQUE: Ultrasound is performed using grayscale imaging and color Doppler. Imaging is performed to include the four quadrants and retroareolar region. Both breasts are imaged. FINDINGS: Right breast: There is no suspicious finding by ultrasound. There is no cystic or solid mass or focal architectural abnormality. No focal duct ectasia. No skin thickening. Left breast: There is no suspicious finding by ultrasound. There is no cystic or solid mass or focal architectural abnormality. No focal duct ectasia. No skin thickening. US/US breast LT complete IMPRESSION: Normal bilateral screening breast ultrasound. ASSESSMENT: BI-RADS 1: Negative RECOMMENDATION: Routine annual mammography screening. This patient's information was entered into a reminder system with a target due date for their next mammogram.
== END 2020-12-02 14:54 | disposition home or self-care (01) ==
LOC: HO.MAMMO 14:53
PROVIDERS: Visit Provider Surgery
DX: Z91.89 Other specified personal risk factors, not elsewhere classified (principal); Z80.3 Family history of malignant neoplasm of breast
CPT/HCPCS: 76641

== ENCOUNTER → 2021-02-05 13:10 | Outpatient (BNVA) | payer BC, SELFPAY | PROVIDERS: Visit Provider Internal Medicine ==

== ENCOUNTER → 2021-05-09 09:05 | Outpatient (BNVA) | payer BC, SELFPAY | PROVIDERS: PCP Nurse Practitioner Gerontology ==

== ENCOUNTER → 2021-05-27 12:20 | Outpatient (BNVA) | payer BC, SELFPAY | PROVIDERS: PCP Nurse Practitioner Gerontology; Visit Provider Physician Assistant ==

== ENCOUNTER 2021-06-13 11:03 | Outpatient (REF) | payer BC, SELFPAY ==
--- NOTE | ~2021-06-13 | US_ITS ---
EXAMINATION: US RETROPERITONEAL LIMITED (RENAL ONLY) CLINICAL INFORMATION: Calculus of kidney. COMPARISON: US abdomen limited with liver elastography 10/28/2020. US retroperitoneal limited (renal only) 12/25/2019. XR abdomen KUB 10/05/2018 and 09/21/2018. CT abdomen and pelvis without contrast 07/06/2017. TECHNIQUE: Real-time imaging of the kidneys. FINDINGS: RIGHT KIDNEY: 12.1 x 4.1 x 4.0 cm (SAG x AP x TRV). The kidney is normal in size, contour, and echogenicity. Renal cortical thickness is normal. No focal parenchymal lesions or hydronephrosis. There is a 0.4 x 0.3 x 0.3 cm nonobstructing mid renal calculus. LEFT KIDNEY: 11.6 x 4.4 x 4.2 cm (SAG x AP x TRV). The kidney is normal in size, contour, and echogenicity. Renal cortical thickness is normal. No focal parenchymal lesions or hydronephrosis. There is a 0.5 x 0.3 x 0.3 cm upper renal nonobstructing calculus. There are other, smaller, punctate calculi present that are nonobstructing. US/US renal BI IMPRESSION: 1. There are bilateral nonobstructed kidneys. 2. There are bilateral nonobstructing calculi as described..
== END 2021-06-13 11:04 | disposition home or self-care (01) ==
LOC: HO.HMGCX 11:03
DX: R10.84 Generalized abdominal pain (principal); N20.0 Calculus of kidney
CPT/HCPCS: 76775

== ENCOUNTER 2021-06-13 14:31 | Emergency (ER) | payer BC, SELFPAY ==
--- NOTE | ~2021-06-13 | US_ITS ---
EXAMINATION: US VENOUS ULTRASOUND WITH DOPPLER LOWER EXTREMITY, BILATERAL CLINICAL INFORMATION: Pain. COMPARISON: None. TECHNIQUE: Ultrasound of the deep veins is performed from the hip to the calf with compression sonography and color and pulse Doppler assessment. Spectral analysis with color-flow imaging is performed. FINDINGS: RIGHT: There is normal venous compression and respiratory variation and augmented flow. The visualized common femoral vein, superficial femoral vein, profunda femoral vein, popliteal vein, and the trifurcation region shows no evidence of deep venous thrombosis. There is no significant popliteal fossa cyst. LEFT: There is normal venous compression and respiratory variation and augmented flow. The visualized common femoral vein, superficial femoral vein, profunda femoral vein, popliteal vein, and the trifurcation region shows no evidence of deep venous thrombosis. There is no significant popliteal fossa cyst. If the patient's symptoms persist, followup ultrasound in 5 days 7 days might be of value to exclude proximal propagation from a non-visualized calf vein. US/US venous duplex LE BI IMPRESSION: No DVT demonstrated in the bilateral lower extremities.
[2021-06-13 15:13] VITALS: BP 113/64; PULSE 83; RESP 18; TEMP 36.9; O2SAT 97; BMI 39.6
[2021-06-13 18:00] VITALS: BP 139/83; PULSE 79; RESP 16; O2SAT 95
--- NOTE | 2021-06-13 18:26 | ED.GENADULT ---
HPI - General Adult General Chief complaint: General Medical <Destniy Kunz NP - Last Filed: 06/13/21 20:25> Stated complaint: question blood clots in both calfs <Destiny Kunz NP - Last Filed: 06/13/21 20:25> Time Seen by Provider: 06/13/21 17:45 <Destiny Kunz NP - Last Filed: 06/13/21 20:25> Source: patient <Destiny Kunz NP - Last Filed: 06/13/21 20:25> Mode of arrival: ambulatory <Destiny Kunz NP - Last Filed: 06/13/21 20:25> Limitations: no limitations <Destiny Kunz NP - Last Filed: 06/13/21 20:25> History of Present Illness HPI narrative: 46-year-old female With a history of renal colic, fibromyalgia, hypertension here with reports of bilateral calf pain and burning sensations since last night. Patient tells me that she had COVID 1 month ago. Since recovering from COVID she has had intermittent chest pain and shortness of breath that is being followed by her primary care doctor. Today she had a chest x-ray and a V/Q scan that were negative for any signs of infection or pulmonary embolism. She reports last night she started to have pain in both of her legs. She has not had this prior to today. She did have a D-dimer yesterday that was positive and this is why her primary care doctor ordered V/Q scan. She denies any swelling of the legs, no fevers, chills. <Destiny Kunz NP - Last Filed: 06/13/21 20:25> Related Data Home medications: Home Medications Medication Instructions Recorded Confirmed ibuprofen 800 mg tablet 800 mg PO TID PRN 02/05/20 05/27/21 losartan 25 mg tablet 25 mg PO DAILY PRN 02/05/20 05/27/21 meclizine 12.5 mg tablet 1 tab PO TID PRN 06/18/20 05/27/21 albuterol sulfate 90 mcg/actuation 2 puff PO Q4H PRN 10/02/20 05/27/21 aerosol inhaler beclomethasone dipropionate 80 0 mcg INTRANASAL 10/02/20 05/27/21 mcg/actuation nasal HFA inhaler clobetasol 0.05 % topical cream g TOPICAL BID PRN 10/02/20 05/27/21 fluticasone 500 mcg-salmeterol 50 ea INHALATION 10/02/20 05/27/21 mcg/dose blistr powdr for inhalation levalbuterol HCl 0.63 mg/3 mL 0.63 mg INHALATION TID 10/02/20 05/27/21 solution for nebulization lorazepam 0.5 mg tablet 0.5 mg PO DAILY PRN 10/02/20 05/27/21 ondansetron HCl 4 mg tablet 4 mg PO TID 10/02/20 05/27/21 Previous Rx's Medication Instructions Recorded sumatriptan succinate 25 mg tablet 25 mg PO Q2-4H PRN #7 tab 06/18/20 (Imitrex) diltiazem HCl 120 mg 120 mg PO BID 90 Days #180 cap 03/13/21 capsule,extended release 24 hr pyridoxine (vitamin B6) 100 mg 100 mg PO DAILY 90 Days #90 tab 05/09/21 tablet <Destiny Kunz NP - Last Filed: 06/13/21 20:25> Allergies/adverse reactions: Allergies Allergy/AdvReac Type Severity Reaction Status Date / Time amoxicillin [From AUGMENTIN] Allergy Severe ANAPHYLAXIS Verified 06/13/21 15:13 cephalexin [CEPHALEXIN] Allergy Severe SWELLING Verified 06/13/21 15:13 clavulanic acid Allergy Severe ANAPHYLAXIS Verified 06/13/21 15:13 [From AUGMENTIN] clindamycin [CLINDAMYCIN] Allergy Severe TONGUE Verified 06/13/21 15:13 SWELLING codeine Allergy Severe PASSED OUT Verified 06/13/21 15:13 influenza virus vaccine, Allergy Severe ANAPHYLAXIS Verified 06/13/21 15:13 specific [FLU VACCINE] fluconazole Allergy Intermediate HIVES Verified 06/13/21 15:13 gentamicin [GENTAMICIN] Allergy Intermediate RASH Verified 06/13/21 15:13 oxycodone Allergy Intermediate SOB Verified 06/13/21 15:13 sulfamethoxazole Allergy Mild swelling Verified 06/13/21 15:13 [From Bactrim] trimethoprim [From Bactrim] Allergy Mild swelling Verified 06/13/21 15:13 midazolam Allergy Unknown Vomiting Verified 06/13/21 15:13 seafood Allergy Unknown anaphylaxis Verified 06/13/21 15:13 perflutren [From Definity] Allergy hives Verified 06/13/21 15:13 CT Scan dye Allergy Unknown Anaphylaxis Uncoded 05/09/21 09:06 <Destiny Kunz NP - Last Filed: 06/13/21 20:25> Review of Systems Review of Systems: Yes all other systems are reviewed and are negative <Destiny Kunz NP - Last Filed: 06/13/21 20:25> Constitutional: Constitutional: Reports no additional constitutional complaints, Denies body ache(s), Denies chills, Denies fever(s), Denies headache(s) and Denies weakness <Destiny Kunz NP - Last Filed: 06/13/21 20:25> Eyes: Eyes: Reports no additional eye complaints and Denies change in vision <Destiny Kunz NP - Last Filed: 06/13/21 20:25> ENT: Reports system reviewed and no additional complaints, except as documented, Denies dizziness, Denies headache(s), Denies nasal congestion, Denies nasal discharge and Denies neck pain <Destiny Kunz NP - Last Filed: 06/13/21 20:25> Cardiovascular: Cardiovascular: Reports no additional cardiovascular complaints, Denies chest pain, Denies leg edema and Denies dyspnea <Destiny Kunz NP - Last Filed: 06/13/21 20:25> Comments: +calf pain <Destiny Kunz NP - Last Filed: 06/13/21 20:25> Respiratory: Respiratory: Reports no additional respiratory complaints, Denies cough and Denies dyspnea <Destiny Kunz NP - Last Filed: 06/13/21 20:25> Gastrointestinal: Gastrointestinal: Reports no additional gastrointestinal complaints, Denies abdominal pain, Denies diarrhea, Denies nausea and Denies vomiting <Destiny Kunz NP - Last Filed: 06/13/21 20:25> Genitourinary: Genitourinary: Reports no additional female genitourinary complaints and Denies urinary incontinence <Destiny Kunz NP - Last Filed: 06/13/21 20:25> Musculoskeletal: Musculoskeletal: Reports no additional musculoskeletal complaints, Denies back pain, Denies arthralgias, Denies joint swelling, Denies neck pain, Denies numbness and Denies tingling <Destiny Kunz NP - Last Filed: 06/13/21 20:25> Integumentary/Breasts: Skin/Breast: Reports system reviewed and no additional complaints, except as docu and Denies rash <Destiny Kunz NP - Last Filed: 06/13/21 20:25> Neurologic: Reports system reviewed and no additional complaints, except as documented, Denies dizziness, Denies headache(s), Denies numbness, Denies tingling and Denies weakness <Detsiny Kunz NP - Last Filed: 06/13/21 20:25> [facility] Past Medical History Attestation statement: The following information was validated with the patient. <Destiny Kunz NP - Last Filed: 06/13/21 20:25> Source: old records reviewed and nursing notes reviewed <Destiny Kunz NP - Last Filed: 06/13/21 20:25> Medical History: Medical History Abdominal pain Asthma Atypical chest pain Carotid artery disease Essential hypertension Fibromyalgia H/O ganglion cyst HTN (hypertension) Kidney stones Migraine Morbid obesity with BMI of 40.0-44.9, adult NAFLD (nonalcoholic fatty liver disease) NSVT (nonsustained ventricular tachycardia) PAC (premature atrial contraction) Palpitations PVC (premature ventricular contraction) Vertigo <Destiny Kunz NP - Last Filed: 06/13/21 20:25> Surgical History: Surgical History H/O colonoscopy H/O esophagogastroduodenoscopy History of partial hysterectomy <Destiny Kunz NP - Last Filed: 06/13/21 20:25> Family History Family History: Family History Father Skin cancer Cardiovascular disease Myocardial infarction Hypertension IBS (irritable bowel syndrome) Mother Hypertension Sister Myocardial infarction Hypertension Heartburn Paternal Uncle Colon cancer Paternal Grandmother Colon cancer <Destiny Kunz NP - Last Filed: 06/13/21 20:25> Social History Social History: Social History Household Members: Children Alcohol intake: current Alcohol intake frequency: does not drink Patient Tobacco Use Status: Never used Tobacco Advance Directives: No Advance Directives Information Provided: No <Destiny Kunz NP - Last Filed: 06/13/21 20:25> Physical Exam ED Vital Signs: Vital Signs - 24 hr 06/13/21 15:13 06/13/21 18:00 Temperature 98.5 F Pulse Rate 83 79 Respiratory Rate 18 16 Blood Pressure 113/64 139/83 Pulse Oximetry 97 95 BMI result Body Mass Index 39.6 <Destiny Kunz NP - Last Filed: 06/13/21 20:25> Const General: cooperative, healthy appearing, comfortable and no acute distress <Destiny Kunz NP - Last Filed: 06/13/21 20:25> Orientation/consciousness: patient oriented x3 <Destiny Kuzn NP - Last Filed: 06/13/21 20:25> Limitations: no limitations <Destiny Kunz NP - Last Filed: 06/13/21 20:25> HENMT Head: Yes normal to inspection <Destiny Kunz NP - Last Filed: 06/13/21 20:25> Ears: hearing grossly normal bilaterally <Destiny Kunz NP - Last Filed: 06/13/21 20:25> General nose exam: Normal external nose present <RAHUL Saba Last Filed: 06/13/21 20:25> Face and sinus: Yes normal facial exam <Destiny Kunz NP - Last Filed: 06/13/21 20:25> Mouth: Normal oral and palatal mucosa present <Destiny Kunz NP - Last Filed: 06/13/21 20:25> Teeth and gingiva: dentition normal <RAHUL Saba Last Filed: 06/13/21 20:25> Throat: Yes posterior oropharynx normal, Yes tonsils normal and Yes uvula midline <Destiny Kunz NP - Last Filed: 06/13/21 20:25> Eyes General: appearance normal, both eyes and all related structures <Destiny Kunz NP - Last Filed: 06/13/21 20:25> Pupils: Equal, round and reactive pupils present <Destiny Kunz NP - Last Filed: 06/13/21 20:25> Neck Neck: Yes normal visual inspection, Yes full ROM, Yes no lymphadenopathy and Yes no meningeal signs <Destiny Kunz NP - Last Filed: 06/13/21 20:25> Chest Chest palpation & inspection: normal inspection of the chest <Destiny Kunz NP - Last Filed: 06/13/21 20:25> Resp Effort & Inspection: normal respiratory effort <Destiny Kunz NP - Last Filed: 06/13/21 20:25> Auscultation: clear to auscultation bilaterally <Destiny Kunz NP - Last Filed: 06/13/21 20:25> Cardio Rate: regular rate <Destniy Kunz NP - Last Filed: 06/13/21 20:25> Rhythm: regular rhythm <Destiny Kunz NP - Last Filed: 06/13/21 20:25> Peripheral pulses: Peripheral pulses 2+ throughout <Destiny Kunz NP - Last Filed: 06/13/21 20:25> GI Inspection: Yes normal to inspection <Destiny Kunz NP - Last Filed: 06/13/21 20:25> Palpation (GI): Soft to palpation and nontender <Destiny Kunz NP - Last Filed: 06/13/21 20:25> Back/Spine/Pelvis Thoracic/Lumbar Spine: thoracic and lumbar spine normal to inspection <Destiny Kunz NP - Last Filed: 06/13/21 20:25> Skin General skin exam: no rashes or lesions noted <Destiny Kunz NP - Last Filed: 06/13/21 20:25> Neuro General: patient oriented x3, moves all extremities and no meningeal signs <Destiny Kunz NP - Last Filed: 06/13/21 20:25> Cranial nerves: Yes Equal, round and reactive pupils present <Destiny Kunz NP - Last Filed: 06/13/21 20:25> Cognition (Neuro): normal cognition <Destiny Kunz NP - Last Filed: 06/13/21 20:25> Gait exam (Neuro): Normal gait present <Destiny Kunz NP - Last Filed: 06/13/21 20:25> Motor exam (neuro): 5/5 motor strength present throughout <Destiny Kunz NP - Last Filed: 06/13/21 20:25> Sensory Exam: Normal double simultaneous stimulation for sensation <Destiny Kunz NP - Last Filed: 06/13/21 20:25> Extrem Other: bilateral posterior calf tenderness with no appreciable swelling, redness or warmth. Distal pulses palpated both lower extremities. <Destiny Kunz NP - Last Filed: 06/13/21 20:25> General: Yes normal to inspection and Yes no pedal edema <Destiny Kunz NP - Last Filed: 06/13/21 20:25> Course Course Course Narrative: 38-year-old female here with reports of bilateral calf pain since last evening. patient recently had COVID last month. She had D-dimer yesterday was positive and is being worked up for PE by her primary care doctor. Patient did have both a chest x-ray and V/Q scan done today which she tells me were normal. On exam I do not appreciate any warmth or redness or swelling. She does have tenderness in both calves. Will check labs, venous US 2000- Labs are unremarkable. Ultrasound shows no evidence of DVT. Will be referred back to PCP. reviewed worrisome signs and symptoms of when to return to the emergency department. Comfortable discharge home. <Destiny Kunz NP - Last Filed: 06/13/21 20:25> Medical Decision Making Medical Records Medical records reviewed: Yes I reviewed the patient's medical records. <Destiny Kunz NP - Last Filed: 06/13/21 20:25> Lab Data Lab results reviewed: Yes I reviewed the patient's lab results. <Destiny Kunz NP - Last Filed: 06/13/21 20:25> Result diagrams: : 06/13/21 18:58 06/13/21 18:58 <Destiny Kunz NP - Last Filed: 06/13/21 20:25> Labs: Lab Results 06/13/21 06/13/21 06/13/21 Range/Units 18:58 18:58 18:58 WBC 9.7 (4.8-10.8) X10*3/uL RBC 4.51 (4.20-5.50) X10*6/uL Hgb 12.9 (12.0-16.0) g/dl Hct 40.4 (37.0-47.0) % MCV 89.6 (80.0-98.0) fL MCH 28.6 (27.0-33.0) pg MCHC 31.9 (31.0-35.0) g/dl RDW 13.9 (11.0-16.0) % Plt Count 233 (160-400) X10*3/uL MPV 9.6 (9.4-12.3) fL Immature Gran % (Auto) 0.7 H (0.0-0.4) % Neut % (Auto) 61.4 (45-73) % Lymph % (Auto) 24.9 (20-40) % [place] % (Auto) 7.5 (2-11) % Eos % (Auto) 4.9 H (0-4) % Baso % (Auto) 0.6 (0-2) % Lymph # (Auto) 2.4 (1.2-4.9) X10*3/uL [place] # (Auto) 0.7 (0.1-1.2) X10*3/uL Eos # (Auto) 0.5 H (0.0-0.4) X10*3/uL Baso # (Auto) 0.1 (0.0-0.2) X10*3/uL Abs Immat Gran (auto) 0.07 H (0.00-0.03) X10*3/uL Absolute Neuts (auto) 5.9 (2.0-8.3) x10*3/uL Absolute Nucleated RBC 0.000 (0.0-0.012) X10*3/uL Nucleated RBC % (auto) 0.0 (0.0-0.2) /100WBC D-Dimer High Sensitivty 290 NG/ML Sodium 143 (135-145) mmol/L Potassium 4.0 (3.3-5.1) mmol/L Chloride 109 H (96-108) mmol/L Carbon Dioxide 25 (22-29) mmol/L Anion Gap 13 (12-20) BUN 17 H (9-16) mg/dL Creatinine 0.96 (0.5-1.4) mg/dL Estim Creat Clear Calc 78.5 Estimated GFR > 60 Random Glucose 90 (60-115) mg/dL Calcium 9.0 (8.4-10.2) mg/dL Magnesium 2.3 (1.6-2.6) mg/dL Total Bilirubin 0.6 (0.0-1.0) mg/dL Direct Bilirubin 0.2 (0.0-0.5) mg/dL AST 24 (5-31) U/L ALT 45 H (0-31) U/L Alkaline Phosphatase 121 H (39-117) U/L Total Protein 7.1 (6.5-8.0) g/dL Albumin 4.1 (3.5-5.0) g/dL <Destiny Kunz NP - Last Filed: 06/13/21 20:25> Imaging Data Venous US: Attestation: I personally reviewed and interpreted this imaging study as follows: <Destiny Kunz NP - Last Filed: 06/13/21 20:25> Radiologist's impression: [place] [id number] Ultrasound Report Signed Patient: Patti Drake MR#: [id number] : 1975 Acct:[id number] Age/Sex: 46 / F ADM Date: 06/13/21 Loc: HO.ED Attending Dr: Ordering Physician: Destiny Kunz NP Date of Service: 06/13/21 Procedure(s): US venous duplex LE BI Accession Number(s): [id number] cc: Destiny Kunz NP~ EXAMINATION:? US VENOUS ULTRASOUND WITH DOPPLER LOWER EXTREMITY, BILATERAL CLINICAL INFORMATION:? Pain. COMPARISON:? None. TECHNIQUE: Ultrasound of the deep veins is performed from the hip to the calf with compression sonography and color and pulse Doppler assessment. Spectral analysis with color-flow imaging is performed. FINDINGS: RIGHT: There is normal venous compression and respiratory variation and augmented flow. The visualized common femoral vein, superficial femoral vein, profunda femoral vein, popliteal vein, and the trifurcation region shows no evidence of deep venous thrombosis. ? There is no significant popliteal fossa cyst. LEFT: There is normal venous compression and respiratory variation and augmented flow. The visualized common femoral vein, superficial femoral vein, profunda femoral vein, popliteal vein, and the trifurcation region shows no evidence of deep venous thrombosis. ? There is no significant popliteal fossa cyst. If the patient's symptoms persist, followup ultrasound in 5 days 7 days might be of value to exclude proximal propagation from a non-visualized calf vein. US/US venous duplex LE BI IMPRESSION: No DVT demonstrated in the bilateral lower extremities. <Destiny Kunz NP - Last Filed: 06/13/21 20:25> Discharge Plan Discharge Clinical Impression: Leg pain, bilateral <Destiny Kunz NP - Last Filed: 06/13/21 20:25> Patient Disposition: Home, Self-Care <Destiny Kunz NP - Last Filed: 06/13/21 20:25> Instructions: Leg Pain (ED) <Destiny Kunz NP - Last Filed: 06/13/21 20:25> Additional Instructions: the ultrasound shows no signs of blood clots your blood work looks normal follow-up with her primary care doctor to continue to monitor your complaints of shortness of breath and chest pain following COVID <Destiny Kunz NP - Last Filed: 06/13/21 20:25> Prescriptions: No Action diltiazem HCl 120 mg capsule,extended release 24hr 120 mg PO BID 90 Days Qty: 180 3RF meclizine 12.5 mg tablet 1 tab PO TID PRN (Reason: Vertigo) 0RF sumatriptan succinate [Imitrex] 25 mg tablet 25 mg PO Q2-4H PRN (Reason: migraine headache) Qty: 7 0RF Rx Instructions: do not exceed 8 doses per 24 hrs losartan 25 mg tablet 25 mg PO DAILY PRN (Reason: IF BLOOD PRESSURE STILL HIGH) 0RF Rx Instructions: PATIENT TAKES ONLY IF NEEDED ibuprofen 800 mg tablet 800 mg PO TID PRN (Reason: pain) 0RF lorazepam 0.5 mg tablet 0.5 mg PO DAILY PRN (Reason: anxiety) 0RF fluticasone propion-salmeterol 500-50 mcg/dose blister with device inhalation 0RF QNASL 80 mcg/actuation HFA aerosol inhaler 0 mcg intranasal 0RF levalbuterol HCl 0.63 mg/3 mL solution for nebulization 0.63 mg inhalation TID 0RF ondansetron HCl 4 mg tablet 4 mg PO TID 0RF clobetasol 0.05 % cream topical BID PRN0RF albuterol sulfate 90 mcg/actuation HFA aerosol inhaler 2 puff PO Q4H PRN (Reason: wheezing) 0RF pyridoxine (vitamin B6) 100 mg tablet 100 mg PO DAILY 90 Days Qty: 90 1RF <Destiny Kunz NP - Last Filed: 06/13/21 20:25> Referrals: Physician,Unknown J [Primary Care Provider] - 5 days <Destiny Kunz NP - Last Filed: 06/13/21 20:25> Discharge Date/Time: 06/13/21 20:17 <Destiny Kunz NP - Last Filed: 06/13/21 20:25>
[2021-06-13 19:02] LABS: MANUAL DIFF FLAG NO
[2021-06-13 19:03] LABS: Basophils Absolute Auto 0.1 X10*3/uL (0.0-0.2); Basophils Percent Auto 0.6 % (0-2); Eosinophils Absolute Auto 0.5 X10*3/uL (0.0-0.4); Eosinophils Percent Auto 4.9 % (0-4); Hematocrit 40.4 % (37.0-47.0); Hemoglobin 12.9 g/dl (12.0-16.0); Imm Gran Abs Auto 0.07 X10*3/uL (0.00-0.03); Imm Gran Pct Auto 0.7 % (0.0-0.4); Lymphocytes Absolute Auto 2.4 X10*3/uL (1.2-4.9); Lymphocytes Percent Auto 24.9 % (20-40); Mean Corpuscular HGB Conc 31.9 g/dl (31.0-35.0); Mean Corpuscular Hemoglobin 28.6 pg (27.0-33.0); Mean Corpuscular Volume 89.6 fL (80.0-98.0); Mean Platelet Volume 9.6 fL (9.4-12.3); Monocytes Absolute Auto 0.7 X10*3/uL (0.1-1.2); Monocytes Percent Auto 7.5 % (2-11); Neutrophils Absolute Auto 5.9 x10*3/uL (2.0-8.3); Neutrophils Percent Auto 61.4 % (45-73); Platelet Count 233 X10*3/uL (160-400); Red Blood Count 4.51 X10*6/uL (4.20-5.50); Red Cell Distribution Width 13.9 % (11.0-16.0); White Blood Count 9.7 X10*3/uL (4.8-10.8)
[2021-06-13 19:10] LABS: D Dimer High Sensitivity 290 NG/ML
[2021-06-13 19:18] LABS: Alanine Aminotransferase 45 U/L (0-31); Albumin Level 4.1 g/dL (3.5-5.0); Alkaline Phosphatase 121 U/L (39-117); Anion Gap 13 (12-20); Aspartate Amino Transferase 24 U/L (5-31); Bilirubin Direct 0.2 mg/dL (0.0-0.5); Bilirubin Total 0.6 mg/dL (0.0-1.0); Blood Urea Nitrogen 17 mg/dL (9-16); Carbon Dioxide 25 mmol/L (22-29); Chloride 109 mmol/L (96-108); Creatinine Clr Calc Pharmacy 78.5; Estimated Glomerular Filt Rate > 60; Glucose Random 90 mg/dL (60-115); Magnesium 2.3 mg/dL (1.6-2.6); Sodium 143 mmol/L (135-145); Total Protein 7.1 g/dL (6.5-8.0)
== END 2021-06-13 20:17 | disposition home or self-care (01) ==
PROVIDERS: Nurse Practitioner Family; Emergency Provider Emergency Medicine
DX: M79.605 Pain in left leg (principal); M79.604 Pain in right leg; I10 Essential (primary) hypertension; Z86.16 Personal history of COVID-19
CPT/HCPCS: 36415; 80048; 80076; 83735; 85025; 85379; 93970; 99283; 99284

== ENCOUNTER → 2021-07-03 09:16 | Outpatient (BNVA) | payer BC, SELFPAY | DX: Z13.89 Encounter for screening for other disorder (principal) ==

== ENCOUNTER → 2021-08-12 11:38 | Outpatient (BNVA) | payer BC, SELFPAY | PROVIDERS: Visit Provider Urology | DX: N20.0 Calculus of kidney (principal) ==

== ENCOUNTER 2021-08-20 06:40 | Day surgery (SDC) | payer BC, SELFPAY ==
[2021-08-14 10:40] VITALS: BMI 40.9
--- NOTE | 2021-08-19 12:14 | HO.ANESPROP2 ---
Documented by User: Ling Ruelas NP 08/19/21 12:19 HPI - Anesthesia Eval Consult details Narrative: 46yo F for Left ESWL Cardiac cleared Last ESWL 05/2018 with MAC (propofol 300, ofirmev 1gm). 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 *Multiple Med allergies* Including midazolam, scopolamine PMFSH Active Problems Active Problems: All Active Problems (Updated 08/14/21 @ 10:28 by Marleny Cervantes RN) Family history of colon cancer (Acute) Colon cancer high risk (Acute) At high risk for breast cancer (Acute) Family history of breast cancer (Acute) Kidney stones (Acute) NAFLD (nonalcoholic fatty liver disease) (Acute) Morbid obesity with BMI of 40.0-44.9, adult (Acute) Abdominal pain (Acute) Atypical chest pain (Acute) Palpitations (Acute) Essential hypertension (Acute) PAC (premature atrial contraction) (Acute) NSVT (nonsustained ventricular tachycardia) (Acute) Past Medical History Medical History Abdominal pain Asthma Atypical chest pain Carotid artery disease Essential hypertension Fibromyalgia H/O ganglion cyst History of COVID-19 HTN (hypertension) Kidney stones Migraine Morbid obesity with BMI of 40.0-44.9, adult NAFLD (nonalcoholic fatty liver disease) NSVT (nonsustained ventricular tachycardia) PAC (premature atrial contraction) Palpitations Post-operative nausea and vomiting PVC (premature ventricular contraction) Vertigo Family History Family History Father Skin cancer Cardiovascular disease Myocardial infarction Hypertension IBS (irritable bowel syndrome) Mother Hypertension Sister Myocardial infarction Hypertension Heartburn Paternal Uncle Colon cancer Paternal Grandmother Colon cancer Surgical History Surgical History (Updated 08/14/21 @ 10:28 by Marleny Cervantes RN) H/O colonoscopy H/O esophagogastroduodenoscopy History of endometrial ablation History of partial hysterectomy Hx of cystoscopy Hx of lithotripsy Social History Social History Household Members: Children Alcohol intake: current Alcohol intake frequency: does not drink Patient Tobacco Use Status: Never used Tobacco Use of substances other than those prescribed or required for medical reasons: No Are you DNR?: No Advance Directives: No Advance Directives Information Provided: Yes Recently lost weight without trying: No Nutrition Risks: No Nutritional Risk Patient : No Meds Allergies Allergy/AdvReac Type Severity Reaction Status Date / Time amoxicillin [From AUGMENTIN] Allergy Severe ANAPHYLAXIS Verified 08/12/21 11:39 cephalexin [CEPHALEXIN] Allergy Severe SWELLING Verified 08/12/21 11:39 clavulanic acid Allergy Severe ANAPHYLAXIS Verified 08/12/21 11:39 [From AUGMENTIN] clindamycin [CLINDAMYCIN] Allergy Severe TONGUE Verified 08/12/21 11:39 SWELLING codeine Allergy Severe PASSED OUT Verified 08/12/21 11:39 influenza virus vaccine, Allergy Severe ANAPHYLAXIS Verified 08/12/21 11:39 specific [FLU VACCINE] perflutren [From Definity] Allergy Severe hives/anaph Verified 08/12/21 11:39 ylaxis scopolamine Allergy Severe Vomiting Verified 08/12/21 11:39 seafood Allergy Severe anaphylaxis Verified 08/12/21 11:39 fluconazole Allergy Intermediate HIVES Verified 08/12/21 11:39 gentamicin [GENTAMICIN] Allergy Intermediate RASH Verified 08/12/21 11:39 midazolam Allergy Intermediate Vomiting Verified 08/12/21 11:39 oxycodone Allergy Intermediate SOB Verified 08/12/21 11:39 sulfamethoxazole Allergy Mild swelling Verified 08/12/21 11:39 [From Bactrim] trimethoprim [From Bactrim] Allergy Mild swelling Verified 08/12/21 11:39 Iodinated Contrast Media Allergy Hives Verified 08/20/21 07:23 [IV Contrast Dye] Home Medications Medication Instructions Recorded Confirmed Last Taken Type ibuprofen 800 mg tablet 800 mg PO TID PRN 02/05/20 08/14/21 Unknown History losartan 25 mg tablet 25 mg PO DAILY PRN 02/05/20 08/14/21 Unknown History meclizine 12.5 mg tablet 1 tab PO TID PRN 06/18/20 08/14/21 Unknown History albuterol sulfate 90 mcg/actuation 2 puff PO Q4H PRN 10/02/20 08/14/21 Unknown History aerosol inhaler beclomethasone dipropionate 80 80 mcg INTRANASAL DAILY 10/02/20 08/14/21 Unknown History mcg/actuation nasal HFA inhaler clobetasol 0.05 % topical cream 1 appl TOPICAL BID 10/02/20 08/14/21 Unknown History fluticasone 500 mcg-salmeterol 50 1 ea INHALATION DAILY 10/02/20 08/14/21 Unknown History mcg/dose blistr powdr for inhalation levalbuterol HCl 0.63 mg/3 mL 0.63 mg INHALATION TID 10/02/20 08/14/21 Unknown History solution for nebulization lorazepam 0.5 mg tablet 0.5 mg PO DAILY PRN 10/02/20 08/14/21 Unknown History ondansetron HCl 4 mg tablet 4 mg PO TID 10/02/20 08/12/21 Unknown History prednisone 10 mg tablet 0 mg PO 07/03/21 08/12/21 Unknown History prednisone 5 mg tablet 0 mg PO 07/03/21 08/12/21 Unknown History fluticasone 500 mcg-salmeterol 50 1 puff INHALATION BID 08/20/21 08/20/21 08/20/21 History mcg/dose blistr powdr for inhalation (Darnell Molina) Exam Exam Date and Time: August 19, 2021 1214 Height,Weight and Vital Signs: Height 5 ft 2 in Weight 101.605 kg Pertinent Lab Results Pertinent Lab Results: Laboratory Tests 06/13/21 06/13/21 18:58 18:58 WBC 9.7 Hgb 12.9 Hct 40.4 Plt Count 233 Sodium 143 Potassium 4.0 Chloride 109 H Carbon Dioxide 25 BUN 17 H Creatinine 0.96 Narrative Narrative: EKG 10/2020 NSR @ 92 Holter 11/2020 Underlying rhythm is sinus; Average ventricular rate 82/min; range 60-128/min; No significant ectopy, tachy or bradyarrhythmias; Patient did not return diary Assessment and Plan Assessment Anesthesia Assessment: Chart Reviewed Documented by User: Idalmis Barrientos MD 08/20/21 08:27 [facility] Past Medical History Medical History Abdominal pain Asthma Atypical chest pain Carotid artery disease Essential hypertension Fibromyalgia H/O ganglion cyst History of COVID-19 HTN (hypertension) Kidney stones Migraine Morbid obesity with BMI of 40.0-44.9, adult NAFLD (nonalcoholic fatty liver disease) NSVT (nonsustained ventricular tachycardia) PAC (premature atrial contraction) Palpitations Post-operative nausea and vomiting PVC (premature ventricular contraction) Vertigo Functional capacity: independent ambulation Patient : No Family History Family History Father Skin cancer Cardiovascular disease Myocardial infarction Hypertension IBS (irritable bowel syndrome) Mother Hypertension Sister Myocardial infarction Hypertension Heartburn Paternal Uncle Colon cancer Paternal Grandmother Colon cancer Family history of problems with anesthesia: No Surgical History Surgical History (Updated 08/14/21 @ 10:28 by Marleny Cervantes RN) H/O colonoscopy H/O esophagogastroduodenoscopy History of endometrial ablation History of partial hysterectomy Hx of cystoscopy Hx of lithotripsy History of Problems with Anesthesia: No Social History Social History Household Members: Children Alcohol intake: current Alcohol intake frequency: does not drink Patient Tobacco Use Status: Never used Tobacco Use of substances other than those prescribed or required for medical reasons: No Are you DNR?: No Advance Directives: No Advance Directives Information Provided: Yes Recently lost weight without trying: No Nutrition Risks: No Nutritional Risk Patient : No Meds Allergies Allergy/AdvReac Type Severity Reaction Status Date / Time amoxicillin [From AUGMENTIN] Allergy Severe ANAPHYLAXIS Verified 08/12/21 11:39 cephalexin [CEPHALEXIN] Allergy Severe SWELLING Verified 08/12/21 11:39 clavulanic acid Allergy Severe ANAPHYLAXIS Verified 08/12/21 11:39 [From AUGMENTIN] clindamycin [CLINDAMYCIN] Allergy Severe TONGUE Verified 08/12/21 11:39 SWELLING codeine Allergy Severe PASSED OUT Verified 08/12/21 11:39 influenza virus vaccine, Allergy Severe ANAPHYLAXIS Verified 08/12/21 11:39 specific [FLU VACCINE] perflutren [From Definity] Allergy Severe hives/anaph Verified 08/12/21 11:39 ylaxis scopolamine Allergy Severe Vomiting Verified 08/12/21 11:39 seafood Allergy Severe anaphylaxis Verified 08/12/21 11:39 fluconazole Allergy Intermediate HIVES Verified 08/12/21 11:39 gentamicin [GENTAMICIN] Allergy Intermediate RASH Verified 08/12/21 11:39 midazolam Allergy Intermediate Vomiting Verified 08/12/21 11:39 oxycodone Allergy Intermediate SOB Verified 08/12/21 11:39 sulfamethoxazole Allergy Mild swelling Verified 08/12/21 11:39 [From Bactrim] trimethoprim [From Bactrim] Allergy Mild swelling Verified 08/12/21 11:39 Iodinated Contrast Media Allergy Hives Verified 08/20/21 07:23 [IV Contrast Dye] Home Medications Medication Instructions Recorded Confirmed Last Taken Type ibuprofen 800 mg tablet 800 mg PO TID PRN 02/05/20 08/14/21 Unknown History losartan 25 mg tablet 25 mg PO DAILY PRN 02/05/20 08/14/21 Unknown History meclizine 12.5 mg tablet 1 tab PO TID PRN 06/18/20 08/14/21 Unknown History albuterol sulfate 90 mcg/actuation 2 puff PO Q4H PRN 10/02/20 08/14/21 Unknown History aerosol inhaler beclomethasone dipropionate 80 80 mcg INTRANASAL DAILY 10/02/20 08/14/21 Unknown History mcg/actuation nasal HFA inhaler clobetasol 0.05 % topical cream 1 appl TOPICAL BID 10/02/20 08/14/21 Unknown History fluticasone 500 mcg-salmeterol 50 1 ea INHALATION DAILY 10/02/20 08/14/21 Unknown History mcg/dose blistr powdr for inhalation levalbuterol HCl 0.63 mg/3 mL 0.63 mg INHALATION TID 10/02/20 08/14/21 Unknown History solution for nebulization lorazepam 0.5 mg tablet 0.5 mg PO DAILY PRN 10/02/20 08/14/21 Unknown History ondansetron HCl 4 mg tablet 4 mg PO TID 10/02/20 08/12/21 Unknown History prednisone 10 mg tablet 0 mg PO 07/03/21 08/12/21 Unknown History prednisone 5 mg tablet 0 mg PO 07/03/21 08/12/21 Unknown History fluticasone 500 mcg-salmeterol 50 1 puff INHALATION BID 05/18/22 05/18/22 05/18/22 History mcg/dose blistr powdr for inhalation (Inderjitxela Inhub) Exam Airway Mallampati Class: III TM Dist: >3cm Neck ROM: Full Heart: RRR Lungs: CYA Assessment and Plan Final Anesthetic Review Family History of Problems with Anesthesia: No History of Problems with Anesthesia: No ASA Class: III Final Preanesthetic Review: No Changes in Pt Med Stat, Meds/Allgs Chart Reviewed, Consent Obtained/Reviewed and Anes Risks/Benef Reviewed Patient Risk: Low Procedure Risk: Low Anesthetic Plan Anesthetic Plan: GA Disposition: Standard PACU
--- NOTE | ~2021-08-20 | XR_ITS ---
EXAMINATION: XR ABDOMEN KUB CLINICAL INDICATION: Preop. COMPARISON: Renal ultrasound 06/13/2021 TECHNIQUE: AP view of the abdomen. FINDINGS: There is moderate gas seen in the right colon. No radiopaque calculi or organomegaly seen. No gross bony abnormality. The SI joints are symmetrical and normal. XR/XR KUB IMPRESSION: Moderate constipation. No radiopaque calculi seen on this KUB.
[2021-08-20 07:28] VITALS: BMI 39.6
[2021-08-20 07:38] VITALS: BP 130/81; PULSE 93; RESP 16; TEMP 36.4; O2SAT 98
[2021-08-20] MEDS: Acetaminophen 325 MG TABLET 650 MG PO (07:47)
[2021-08-20] MEDS: Lactated Ringers 1,000 ML 100 ML IVCONT (07:48)
--- NOTE | 2021-08-20 08:42 | MHC.SHP ---
Pre-Procedural Eval Section A Date of Service: 08/20/21 The patient is an INPATIENT: No Changes since office visit: No Cold of Flu in the past 2 weeks, No New Medical Problems, No Changes in Medication and No Patient answered all questions The History & Physical has been completed within 30 days and I have reviewed it.: Yes Section B Chief Complaint: kidney stone Allergies: Allergies Allergy/AdvReac Type Severity Reaction Status Date / Time amoxicillin [From AUGMENTIN] Allergy Severe ANAPHYLAXIS Verified 08/12/21 11:39 cephalexin [CEPHALEXIN] Allergy Severe SWELLING Verified 08/12/21 11:39 clavulanic acid Allergy Severe ANAPHYLAXIS Verified 08/12/21 11:39 [From AUGMENTIN] clindamycin [CLINDAMYCIN] Allergy Severe TONGUE Verified 08/12/21 11:39 SWELLING codeine Allergy Severe PASSED OUT Verified 08/12/21 11:39 influenza virus vaccine, Allergy Severe ANAPHYLAXIS Verified 08/12/21 11:39 specific [FLU VACCINE] perflutren [From Definity] Allergy Severe hives/anaph Verified 08/12/21 11:39 ylaxis scopolamine Allergy Severe Vomiting Verified 08/12/21 11:39 seafood Allergy Severe anaphylaxis Verified 08/12/21 11:39 fluconazole Allergy Intermediate HIVES Verified 08/12/21 11:39 gentamicin [GENTAMICIN] Allergy Intermediate RASH Verified 08/12/21 11:39 midazolam Allergy Intermediate Vomiting Verified 08/12/21 11:39 oxycodone Allergy Intermediate SOB Verified 08/12/21 11:39 sulfamethoxazole Allergy Mild swelling Verified 08/12/21 11:39 [From Bactrim] trimethoprim [From Bactrim] Allergy Mild swelling Verified 08/12/21 11:39 Iodinated Contrast Media Allergy Hives Verified 08/20/21 07:23 [IV Contrast Dye] Plan Diagnosis/Plan: Unchanged (left 5mm ESWL) I have reviewed the history and physical and performed a pertinent physical examination on my patient. No changes have occurred unless specified.
--- NOTE | 2021-08-20 08:43 | W.PM.OPN ---
Operative Note Operative Note Date of Service: 08/20/21 Narrative: PreOperative Diagnosis: Left Renal stones Post Operative Diagnosis: Left Renal stones Procedure: Left renal ESWL Surgeon: Dr Sang Neal Anesthesia: mac/sedation Indications for procedure: The patient understands ESWL may be a staged procedure and subsequent intervention may be required based on imaging after ESWL. They also understand there is a risk of bleeding to the kidney, infection, damage to adjacent organs, and stone migration following the procedure. - Imaging renal ultrasound left 5 mm stone, right 4 mm stone Procedure: After informed consent was verified the patient was brought to the operating room and placed in a supine position. Anesthesia was performed per protocol. Safety pause time-out was performed. Imaging was displayed in the room and laterality confirmed. ESWL was performed. The 1st 500 shocks were performed at 60 hertz. These were performed with increasing power. Once maximum power was reached the rate was increased to 180 hertz. A total of 2500 shocks were given. Targetted imaging with ultrasound/fluoroscopy showed stone smudging suggestive of disintegration. The patient tolerated the procedure well and was transferred to the recovery area upon completion. Post procedure imaging will be organized. There was no evidence for flank discoloration.
[2021-08-20 09:16] VITALS: BP 119/73; PULSE 75; RESP 16; TEMP 36.4; O2SAT 95
--- NOTE | 2021-08-20 09:19 | PC.NURSE ---
Patient arrived to PACU with a PRN angio #20 in right forearm. Site asymptomatic.
[2021-08-20 09:21] VITALS: BP 111/71; PULSE 76; RESP 16; O2SAT 97
[2021-08-20 09:26] VITALS: BP 108/66; PULSE 71; RESP 16; O2SAT 96
[2021-08-20 09:31] VITALS: BP 118/72; PULSE 75; RESP 16; O2SAT 96
[2021-08-20 09:46] VITALS: BP 130/80; PULSE 82; RESP 16; TEMP 36.2; O2SAT 98
[2021-08-20] MEDS: traMADoL HCL 50 MG TABLET PO (09:49)
--- NOTE | 2021-08-20 11:35 | HO.POSTANES ---
Post Anesthesia Evaluation Post Anesthesia Evaluation Vital Signs: Vital Signs Temp Pulse Resp BP Pulse Ox 08/20/21 09:46 97.2 F 82 16 130/80 98 08/20/21 09:31 75 16 118/72 96 08/20/21 09:26 71 16 108/66 96 08/20/21 09:21 76 16 111/71 97 08/20/21 09:16 97.6 F 75 16 119/73 95 08/20/21 07:38 97.6 F 93 16 130/81 98 Anesthesia: General LMA and General Mental Status: Awake Pain Control: Satisfactory Nausea/Vomiting: None Hydration: Adequate Anesthesia-Related Issues: No Anes. Related Issues
== END 2021-08-20 10:22 | disposition home or self-care (01) ==
PROVIDERS: Visit Provider Urology
PROC: (CPT 50590; principal; 2021-08-20 08:20)
DX: N20.0 Calculus of kidney (principal); Z87.442 Personal history of urinary calculi; I10 Essential (primary) hypertension; J45.909 Unspecified asthma, uncomplicated; I49.3 Ventricular premature depolarization; K76.0 Fatty (change of) liver, not elsewhere classified; M79.7 Fibromyalgia; R42 Dizziness and giddiness; E66.01 Morbid (severe) obesity due to excess calories; Z68.41 Body mass index [BMI] 40.0-44.9, adult; Z88.0 Allergy status to penicillin; Z88.1 Allergy status to other antibiotic agents; Z88.2 Allergy status to sulfonamides; Z88.8 Allergy status to other drugs, medicaments and biological substances; Z88.7 Allergy status to serum and vaccine; Z86.16 Personal history of COVID-19
CPT/HCPCS: 50590; 74018; J1100; J2405; J3010

== ENCOUNTER 2021-09-03 12:25 | Outpatient (REF) | payer BC, SELFPAY ==
--- NOTE | ~2021-09-03 | US_ITS ---
EXAMINATION: US RETROPERITONEAL LIMITED (RENAL ONLY) CLINICAL INFORMATION: Calculus of kidney COMPARISON: X-ray KUB 08/20/2021 and 10/05/2018. Renal ultrasound 06/13/2021. Ultrasound abdomen limited 10/28/2020. CT abdomen and pelvis 07/06/2017. TECHNIQUE: Real-time imaging of the kidneys. FINDINGS: RIGHT KIDNEY: 12.9 x 5.0 x 4.0 cm (SAG x AP x TRV). The kidney is normal in size, contour, and echogenicity. Renal cortical thickness is normal. No focal parenchymal lesions or hydronephrosis. There is a nonobstructive 0.5 cm calculus in the midpole. LEFT KIDNEY: 11.4 x 4.8 x 4.6 cm (SAG x AP x TRV). The kidney is normal in size, contour, and echogenicity. Renal cortical thickness is normal. No focal parenchymal lesions or hydronephrosis. There is a 0.4 cm nonobstructive calculus in the midpole, and a 0.5 cm nonobstructive calculus in the lower pole. US/US renal BI IMPRESSION: Nonobstructive bilateral renal calculi.
== END 2021-09-03 12:26 | disposition home or self-care (01) ==
LOC: HO.US 12:25
PROVIDERS: Visit Provider Urology
DX: N20.0 Calculus of kidney (principal)
CPT/HCPCS: 76775

== ENCOUNTER 2021-09-22 22:50 | Inpatient (IN) | payer BC, SELFPAY ==
[2021-09-22] VITALS (16 sets, daily range): BP systolic 122–157; BP diastolic 70–108; PULSE 65–92; RESP 15–18; TEMP 36.2–36.7; O2SAT 94–100; BMI 40.2; BMI 41.5
--- NOTE | ~2021-09-22 | FL_ITS ---
EXAMINATION: XR FLUOROSCOPY WITH IMAGES CLINICAL INFORMATION: Left ureteral stone. COMPARISON: 08/20/2021. TECHNIQUE: Fluoroscopy performed by Dr. Sang Neal. Fluoroscopy time: 0.2 minutes 4.31 mGy Images: 1 FINDINGS: Single C-arm view demonstrates a sheath and catheter overlying the location of the proximal ureter and kidney. FL/FL guidance in OR IMPRESSION: Intraoperative fluoroscopy provided for urologic procedure.
[2021-09-22] MEDS: Acetaminophen 325 MG TABLET 650 MG PO (16:19)
--- NOTE | 2021-09-22 20:30 | P.CONAN_ITS ---
[facility] Active Problems Active Problems: All Active Problems (Updated 09/16/21 @ 09:35 by Nanci Ochoa PA-C) Rectal bleeding (Acute) Family history of colon cancer (Acute) Colon cancer high risk (Acute) At high risk for breast cancer (Acute) Family history of breast cancer (Acute) Kidney stones (Acute) NAFLD (nonalcoholic fatty liver disease) (Acute) Morbid obesity with BMI of 40.0-44.9, adult (Acute) Abdominal pain (Acute) Atypical chest pain (Acute) Palpitations (Acute) Essential hypertension (Acute) PAC (premature atrial contraction) (Acute) NSVT (nonsustained ventricular tachycardia) (Acute) Past Medical History Medical History Abdominal pain Asthma Atypical chest pain Carotid artery disease Essential hypertension Fibromyalgia H/O ganglion cyst History of COVID-19 HTN (hypertension) Kidney stones Migraine Morbid obesity with BMI of 40.0-44.9, adult NAFLD (nonalcoholic fatty liver disease) NSVT (nonsustained ventricular tachycardia) PAC (premature atrial contraction) Palpitations Post-operative nausea and vomiting PVC (premature ventricular contraction) Vertigo Family History Family History Father Skin cancer Cardiovascular disease Myocardial infarction Hypertension IBS (irritable bowel syndrome) Mother Hypertension Sister Myocardial infarction Hypertension Heartburn Paternal Uncle Colon cancer Paternal Grandmother Colon cancer Family history of problems with anesthesia: No Surgical History Surgical History H/O colonoscopy H/O esophagogastroduodenoscopy History of endometrial ablation History of partial hysterectomy Hx of cystoscopy Hx of lithotripsy History of Problems with Anesthesia: No Social History Social History Household Members: Children Alcohol intake: current Alcohol intake frequency: does not drink Patient Tobacco Use Status: Never used Tobacco Second Hand Smoke Exposure: No Use of substances other than those prescribed or required for medical reasons: No Are you DNR?: No Advance Directives: No Advance Directives Information Provided: Yes Advance Directives on File: No Meds Allergies Allergy/AdvReac Type Severity Reaction Status Date / Time amoxicillin [From AUGMENTIN] Allergy Severe ANAPHYLAXIS Verified 09/16/21 08:44 cephalexin [CEPHALEXIN] Allergy Severe SWELLING Verified 09/16/21 08:44 clavulanic acid Allergy Severe ANAPHYLAXIS Verified 09/16/21 08:44 [From AUGMENTIN] clindamycin [CLINDAMYCIN] Allergy Severe TONGUE Verified 09/16/21 08:44 SWELLING codeine Allergy Severe PASSED OUT Verified 09/16/21 08:44 influenza virus vaccine, Allergy Severe ANAPHYLAXIS Verified 09/16/21 08:44 specific [FLU VACCINE] perflutren [From Definity] Allergy Severe hives/anaph Verified 09/16/21 08:44 ylaxis scopolamine Allergy Severe Vomiting Verified 09/16/21 08:44 seafood Allergy Severe anaphylaxis Verified 09/16/21 08:44 fluconazole Allergy Intermediate HIVES Verified 09/16/21 08:44 gentamicin [GENTAMICIN] Allergy Intermediate RASH Verified 09/16/21 08:44 midazolam Allergy Intermediate Vomiting Verified 09/16/21 08:44 oxycodone Allergy Intermediate SOB Verified 09/16/21 08:44 sulfamethoxazole Allergy Mild swelling Verified 09/16/21 08:44 [From Bactrim] trimethoprim [From Bactrim] Allergy Mild swelling Verified 09/16/21 08:44 Iodinated Contrast Media Allergy Hives Verified 09/16/21 08:44 [IV Contrast Dye] Home Medications Medication Instructions Recorded Confirmed Last Taken Type ibuprofen 800 mg tablet 800 mg PO TID PRN pain 02/05/20 09/16/21 Unknown History losartan 25 mg tablet 25 mg PO DAILY PRN IF BLOOD 02/05/20 09/16/21 09/22/21 History PRESSURE STILL HIGH meclizine 12.5 mg tablet 1 tab PO TID PRN Vertigo 06/18/20 09/16/21 Unknown History albuterol sulfate 90 mcg/actuation 2 puff PO Q4H PRN wheezing 10/02/20 09/16/21 Unknown History aerosol inhaler beclomethasone dipropionate 80 80 mcg intranasal DAILY 10/02/20 09/16/21 Unknown History mcg/actuation nasal HFA inhaler clobetasol 0.05 % topical cream 1 appl topical BID 10/02/20 09/16/21 Unknown History fluticasone 500 mcg-salmeterol 50 1 ea inhalation DAILY 10/02/20 09/16/21 Unknown History mcg/dose blistr powdr for inhalation levalbuterol HCl 0.63 mg/3 mL 0.63 mg inhalation TID 10/02/20 09/16/21 Unknown History solution for nebulization lorazepam 0.5 mg tablet 0.5 mg PO DAILY PRN anxiety 10/02/20 09/16/21 Unknown History fluticasone 500 mcg-salmeterol 50 1 puff inhalation BID 08/20/21 09/16/21 08/20/21 History mcg/dose blistr powdr for inhalation (Darnell Molina) Exam Exam Date and Time: September 22, [id number] Height,Weight and Vital Signs: Height 5 ft 2 in Weight 99.79 kg Last Vital Signs Temp 97.2 F 09/22/21 15:46 Pulse 84 09/22/21 15:46 Resp 16 09/22/21 15:46 BP 134/106 H 09/22/21 15:46 Pulse Ox 99 09/22/21 15:46 O2 Del Method 09/22/21 15:46 Airway Mallampati Class: II TM Dist: >3cm Loose/Missing/Broken Teeth: No Heart: RRR Lungs: CTA Assessment and Plan Assessment Anesthesia Assessment: Anesthesia Plan Discussed and Chart Reviewed Final Anesthetic Review Family History of Problems with Anesthesia: No History of Problems with Anesthesia: No NPO: Yes ASA Class: III Final Preanesthetic Review: No Changes in Pt Med Stat, Meds/Allgs Chart Reviewed, Consent Obtained/Reviewed and Anes Risks/Benef Reviewed Patient Risk: Intermediate Procedure Risk: Low Anesthetic Plan Anesthetic Plan: GA Disposition: Standard PACU
--- NOTE | 2021-09-22 20:47 | MHC.SHP ---
Pre-Procedural Eval Section A Date of Service: 09/22/21 The patient is an INPATIENT: No Changes since office visit: No Cold of Flu in the past 2 weeks, No New Medical Problems, No Changes in Medication and No Patient answered all questions The History & Physical has been completed within 30 days and I have reviewed it.: Yes Section B Chief Complaint: Calculus of kidney Allergies: Allergies Allergy/AdvReac Type Severity Reaction Status Date / Time amoxicillin [From AUGMENTIN] Allergy Severe ANAPHYLAXIS Verified 09/16/21 08:44 cephalexin [CEPHALEXIN] Allergy Severe SWELLING Verified 09/16/21 08:44 clavulanic acid Allergy Severe ANAPHYLAXIS Verified 09/16/21 08:44 [From AUGMENTIN] clindamycin [CLINDAMYCIN] Allergy Severe TONGUE Verified 09/16/21 08:44 SWELLING codeine Allergy Severe PASSED OUT Verified 09/16/21 08:44 influenza virus vaccine, Allergy Severe ANAPHYLAXIS Verified 09/16/21 08:44 specific [FLU VACCINE] perflutren [From Definity] Allergy Severe hives/anaph Verified 09/16/21 08:44 ylaxis scopolamine Allergy Severe Vomiting Verified 09/16/21 08:44 seafood Allergy Severe anaphylaxis Verified 09/16/21 08:44 fluconazole Allergy Intermediate HIVES Verified 09/16/21 08:44 gentamicin [GENTAMICIN] Allergy Intermediate RASH Verified 09/16/21 08:44 midazolam Allergy Intermediate Vomiting Verified 09/16/21 08:44 oxycodone Allergy Intermediate SOB Verified 09/16/21 08:44 sulfamethoxazole Allergy Mild swelling Verified 09/16/21 08:44 [From Bactrim] trimethoprim [From Bactrim] Allergy Mild swelling Verified 09/16/21 08:44 Iodinated Contrast Media Allergy Hives Verified 09/16/21 08:44 [IV Contrast Dye] Plan Diagnosis/Plan: Unchanged ( cystoscopy, left retrograde, left ureteroscopy with laser lithotripsy and stent placed) I have reviewed the history and physical and performed a pertinent physical examination on my patient. No changes have occurred unless specified.
[2021-09-22] MEDS: levoFLOXacin 500 MG TABLET PO (20:55)
--- NOTE | 2021-09-22 21:42 | P.OP_ITS ---
Operative Note Operative Note Date of Service: 09/22/21 Narrative: PreOperative Diagnosis: left renal stones Post Operative Diagnosis: left submucosal renal stones Procedure: - cystoscopy, left retrograde - left dilatation of ureteric orifice under fluoroscopy - left ureteroscopy, laser lithotripsy Surgeon: Dr Sang Neal Anesthesia: General Indications for procedure: persistent stones seen on ultrasound after left ESWL Procedure: After informed consent was verified patient was brought to the operating placed in supine position. Anesthesia was administered per protocol. Patient was placed in modified dorsal lithotomy position and prepped and draped in a sterile fashion. Safety pause time-out and side of surgery confirmed. Antibiotics confirmed. 22 [place] cystoscope was inserted per urethra. Bladder was normal in its entirety. Both ureteric orifices were in normal position. The left ureteric orifice was cannulated and a retrograde examination was performed. no filling defects seen . A Sensor guidewire was placed up to the level of the renal pelvis under fluoroscopy. The rigid cystoscope was removed and the inner cannula of ureteric access sheath was used under fluoroscopy to dilate the ureteric orifice. The ureteric access sheath was placed and the inner cannula with access wire removed. The digital flexible ureteral scope was placed. submucosal stones seen in the upper pole on the for calices in this point. Using a laser the submucosal stones were released. Stones were too small to basket. Decision made not to place stent The bladder was emptied. The patient tolerated the procedure well and was extubated in the operating room, and transferred in stable condition to the recovery area. Pathology: none Drains: none
[2021-09-22] MEDS: fentaNYL citrate/PF 100 MCG/2 ML VIAL 25 MCG IVPUSH ×3 (22:06→22:26)
[2021-09-22] MEDS: Ketorolac Tromethamine 30 MG/ML VIAL IVPUSH (22:18)
--- NOTE | 2021-09-22 23:08 | PC.NURSE ---
MEDICATED IV OFIRMEV PER ANESTHESIA ORDER. PATIENT REFUSING ANY FURTHER NARCOTICS AT THIS TIME.
--- NOTE | 2021-09-22 23:14 | PC.NURSE ---
PATIENT RESTING ON RIGHT SIDE, RESP EASY REGULAR. LESS FACIAL GRIMACING AND WARM COMPRESS TO LEFT FLANK AREA. NO FURTHER VOMITING.
[2021-09-22] MEDS: ondansetron HCL 4 MG/2 ML VIAL IVPUSH (23:47)
[2021-09-22] MEDS: HYDROmorphone HCl 1 MG/ML SYRINGE 0.5 MG IVPUSH (23:48)
[2021-09-23] VITALS: BP 117/61; PULSE 65; RESP 16; TEMP 36.7; O2SAT 100
[2021-09-23] MEDS: 0.9 % Sodium Chloride Flush 3 ML SYRINGE IVFLUSH (00:42)
[2021-09-23] MEDS: 0.9 % Sodium Chloride 1,000 ML 100 ML IVCONT ×2 (00:42→10:32)
[2021-09-23 01:31] VITALS: BP 114/64; PULSE 66; RESP 16; TEMP 36.6; O2SAT 100
[2021-09-23] MEDS: HYDROmorphone HCl 1 MG/ML SYRINGE 0.5 MG IVPUSH (03:45)
[2021-09-23 03:48] VITALS: BP 125/84; PULSE 84; RESP 16; TEMP 36.8; O2SAT 100
[2021-09-23 07:34] VITALS: BP 132/82; PULSE 65; RESP 18; TEMP 36; O2SAT 99
--- NOTE | 2021-09-23 08:43 | MHC.CM.PN ---
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
--- NOTE | 2021-09-23 08:52 | HO.POSTANES ---
Post Anesthesia Evaluation Post Anesthesia Evaluation Vital Signs: Vital Signs Temp Pulse Resp BP Pulse Ox O2 Del Method O2 Flow Rate 09/23/21 07:34 96.8 F 65 18 132/82 99 Room Air 09/23/21 03:48 98.2 F 84 16 125/84 100 Nasal Cannula 3 09/23/21 01:31 98 F 66 16 114/64 100 Nasal Cannula 3 09/23/21 00:00 98.0 F 65 16 117/61 100 Nasal Cannula 3 09/22/21 23:57 95 Nasal Cannula 3 09/22/21 22:12 94 Nasal Cannula 09/22/21 23:35 97.4 F 71 16 143/84 H 100 Nasal Cannula 3 09/22/21 23:04 81 16 128/76 100 Room Air 09/22/21 22:46 98.1 F 79 16 122/76 99 Room Air 09/22/21 22:35 67 18 125/70 100 Room Air 09/22/21 22:26 67 16 141/82 H 100 Room Air 09/22/21 22:21 65 16 131/81 100 Room Air 09/22/21 22:16 75 16 142/85 H 100 Room Air 09/22/21 22:11 16 09/22/21 22:06 16 09/22/21 22:11 76 16 145/103 H 100 Room Air 09/22/21 22:06 92 16 135/108 H 99 Room Air 09/22/21 22:01 71 16 127/79 100 Room Air 09/22/21 21:56 69 16 157/82 H 100 Room Air 09/22/21 21:51 72 16 146/88 H 96 Room Air 09/22/21 21:46 97.3 F 72 15 147/89 H 100 Simple Mask 6 Anesthesia: General Mental Status: Awake Pain Control: Satisfactory Nausea/Vomiting: None Hydration: Adequate Anesthesia-Related Issues: No Anes. Related Issues
[2021-09-23] MEDS: traMADoL HCL 50 MG TABLET PO (08:59)
--- NOTE | 2021-09-23 10:03 | PHA.MEDREC ---
Pharmacy Consult ? Medication Reconciliation Pharmacy has completed the medication reconciliation. Patient reports her 3 meds are diltiazem, losartan and the Wixela. Patient reports she is okay with using Breo while inpatient instead of having the Wixela broguht from home. All other medications are PRN. She reports she never started tamsulosin. Massiel Huber, LayD
[2021-09-23] MEDS: Losartan Potassium 25 MG TABLET PO (10:30)
[2021-09-23] MEDS: dilTIAZem HCL CD 120 MG CAP.ER.DEG PO (10:31)
[2021-09-23 11:00] VITALS: BP 129/75; PULSE 82; RESP 18; TEMP 36.2; O2SAT 99
--- NOTE | 2021-09-23 11:56 | PM.UROPN ---
Subjective Subjective Date of Service: 09/23/21 Interval history: Had remained overnight after renal stone procedure yesterday Nausea has resolved Pain is under better control Prescriptions have been sent to pharmacy Can discharge today Physical Exam Vital Signs: Vital Signs: Last Vital Signs Temp 97.2 F 09/23/21 11:00 Pulse 82 09/23/21 11:00 Resp 18 09/23/21 11:00 BP 129/75 09/23/21 11:00 Pulse Ox 99 09/23/21 11:00 O2 Del Method 09/23/21 11:00 O2 Flow Rate 3 09/23/21 03:48 Oxygen Flow Rate 3 09/22/21 22:12 BMI result Body Mass Index 41.5 Const: General: cooperative, healthy appearing, comfortable and no acute distress Orientation/consciousness: patient oriented x3 HEENT: Face and sinus: Yes normal facial exam Mouth: moist mucous membranes Neck: Neck: Yes normal visual inspection, Yes full ROM and Yes trachea midline Chest: Chest palpation & inspection: normal inspection of the chest Resp: Effort & Inspection: normal respiratory effort, able to speak in complete sentences and no respiratory distress GI: Inspection: Yes normal to inspection Back/Spine/Pelvis: Cervical Spine: normal cervical lordosis Thoracic/Lumbar Spine: thoracic and lumbar spine normal to inspection Skin: General skin exam: no rashes or lesions noted Neuro: General: patient oriented x3, tone normal and moves all extremities Extrem: General: Yes normal to inspection and Yes capillary refill normal Progress Note: A&P Assessment and plan (1) Kidney stones: Status: Acute Assessment and Plan: Underwent ureteroscopy with laser lithotripsy yesterday [facility] secondary to inability to maintain oral intake Had nausea and vomiting and unable to retain pain medication oral fluids Plan Discharge home Follow-up in 2 months with 24 hour urine Time Spent With Patient Time: Total time spent is greater than 50% in coordination of care (as documented) at patient's floor/unit and/or counseling patient:
--- NOTE | 2021-09-23 11:59 | PM.DS ---
DS: Providers Provider Date of Service: 09/23/21 Date of admission: 09/22/21 22:50 Primary care physician: Unknown Physician DS: Diagnosis Discharge Diagnosis (1) Kidney stones: Status: Acute (2) Nausea & vomiting: Status: Acute DS: Summary Hospital Course Hospital Course: Admitted to hospital with persistent nausea and vomiting following renal procedure yesterday This has resolved overnight she is able to tolerate oral fluids and medications Time spent discussing smoking cessation with patient: 3 to 10 minutes Status at Discharge Functional status at discharge: independent ambulation Overall status at discharge: patient is back to baseline Time Spent with Patient Time attestation: Total time spent providing and/or coordinating discharge services: Discharge coordination time: Less than 30 minutes Quality: Safe Use of Opioids Does Pt have an Active Cancer Diagnosis on the Problem List?: No Quality: Stroke Does the patient have a stroke diagnosis?: No Physical Exam Vital Signs: Vital Signs: Last Vital Signs Temp 97.2 F 09/23/21 11:00 Pulse 82 09/23/21 11:00 Resp 18 09/23/21 11:00 BP 129/75 09/23/21 11:00 Pulse Ox 99 09/23/21 11:00 O2 Del Method 09/23/21 11:00 O2 Flow Rate 3 09/23/21 03:48 Oxygen Flow Rate 3 09/22/21 22:12 BMI result Body Mass Index 41.5 Const: General: cooperative, healthy appearing, comfortable and no acute distress Orientation/consciousness: patient oriented x3 HEENT: Face and sinus: Yes normal facial exam Mouth: moist mucous membranes Neck: Neck: Yes normal visual inspection, Yes full ROM and Yes trachea midline Chest: Chest palpation & inspection: normal inspection of the chest Resp: Effort & Inspection: normal respiratory effort, able to speak in complete sentences and no respiratory distress GI: Inspection: Yes normal to inspection Back/Spine/Pelvis: Cervical Spine: normal cervical lordosis Thoracic/Lumbar Spine: thoracic and lumbar spine normal to inspection Skin: General skin exam: no rashes or lesions noted Neuro: General: patient oriented x3, tone normal and moves all extremities Extrem: General: Yes normal to inspection and Yes capillary refill normal DS: Data Additional Comments Additional comments: Completed procedure yesterday with left ureteroscopy and laser lithotripsy Discharge Plan Discharge Patient Disposition: Home, Self-Care Discharge Diagnosis: Nausea and vomiting following procedure Referrals: Sang Neal MD [Physician] - 1 Week ( telemedicine) Physician,Keith J [Primary Care Provider] - None Discharge Medications: Continued diltiazem HCl 120 mg capsule,extended release 24hr 120 mg PO BID 90 Days Qty: 180 3RF phenazopyridine [Pyridium] 100 mg tablet 100 mg PO TID PRN (Reason: pain) 5 Days Qty: 15 0RF meclizine 12.5 mg tablet 1 tab PO TID PRN (Reason: Vertigo) sumatriptan succinate [Imitrex] 25 mg tablet 25 mg PO Q2-4H PRN (Reason: migraine headache) Qty: 7 0RF Rx Instructions: do not exceed 8 doses per 24 hrs fluticasone propion-salmeterol [Wixela Inhub] 500-50 mcg/dose blister with device 1 puff inhalation BID tramadol 50 mg tablet 1 tab PO Q12H PRN (Reason: pain) losartan 25 mg tablet 25 mg PO DAILY Rx Instructions: PATIENT TAKES ONLY IF NEEDED ibuprofen 800 mg tablet 800 mg PO TID PRN (Reason: pain) lorazepam 0.5 mg tablet 0.5 mg PO DAILY PRN (Reason: anxiety) levalbuterol HCl 0.63 mg/3 mL solution for nebulization 0.63 mg inhalation TID PRN (Reason: Wheezing) albuterol sulfate 90 mcg/actuation HFA aerosol inhaler 2 puff PO Q4H PRN (Reason: wheezing) pyridoxine (vitamin B6) 100 mg tablet 100 mg PO DAILY 90 Days Qty: 90 1RF ondansetron 4 mg tablet,disintegrating 4 mg PO Q8H 3 Days Qty: 9 0RF hydrocortisone [Proctosol HC] 2.5 % cream with perineal applicator 1 appl IL BEDTIME PRN (Reason: hemorrhoids) Qty: 30 3RF Discharge Orders: Discharge Order (Routine); Ordered 09/22/21 Ordered By: Sang Neal Diet: advance to usual diet Activity on Discharge: As tolerated Care Plan Goals: Stone management Health Concerns: Stone management Plan of Treatment: Stone management Assessment: Stone management
== END 2021-09-23 13:00 | disposition home or self-care (01) | DRG 465 ==
LOC: HO.S3 22:51
PROVIDERS: Admitting Provider Urology; PCP Nurse Practitioner Gerontology; Visit Provider Urology
PROC: 0TF78ZZ Fragmentation in Left Ureter, Via Natural or Artificial Opening Endoscopic (ICD-10-PCS; CPT 52353; principal; 2021-09-22 15:50)
DX: N20.0 Calculus of kidney (principal); I25.10 Atherosclerotic heart disease of native coronary artery without angina pectoris; M79.7 Fibromyalgia; Z86.16 Personal history of COVID-19; Z87.442 Personal history of urinary calculi; Z91.013 Allergy to seafood; Z88.0 Allergy status to penicillin; Z88.1 Allergy status to other antibiotic agents; Z88.2 Allergy status to sulfonamides; Z88.5 Allergy status to narcotic agent; Z88.7 Allergy status to serum and vaccine; Z88.8 Allergy status to other drugs, medicaments and biological substances; Z79.51 Long term (current) use of inhaled steroids; Z79.52 Long term (current) use of systemic steroids; Z79.899 Other long term (current) drug therapy
CPT/HCPCS: 52353; C1758; C1769; J0131; J1170; J1885; J2405; J2550; J3010; Q9966

== ENCOUNTER 2021-10-29 09:53 | Outpatient (REF) | payer BC, SELFPAY ==
--- NOTE | ~2021-10-29 | US_ITS ---
EXAMINATION: US ABDOMEN LIMITED CLINICAL INFORMATION: Fatty (change of) liver, not elsewhere classified. COMPARISON: Renal ultrasound 09/03/2021. Ultrasound the abdomen 10/28/2020 TECHNIQUE: Real-time imaging of the right upper quadrant abdominal viscera. Technically difficult study secondary to bowel gas and body habitus. FINDINGS: PANCREAS: Visualized pancreas is normal. LIVER: Multiple small subcentimeter well-circumscribed hypoechoic cysts are present, seen on prior imaging as well. The liver is normal in size. The liver contour is normal. Parenchymal echogenicity is normal. here is no intrahepatic biliary duct dilatation seen. GALLBLADDER: Normal. The gallbladder is physiologically distended without evidence of stones, sludge, polyps, wall thickening or pericholecystic fluid. COMMON BILE DUCT: Normal in caliber measuring 0.2 cm in diameter. RIGHT KIDNEY: 2 adjacent 6 mm shadowing calcifications are seen in the right mid-lower kidney consistent with calculi. No hydronephrosis. No suspicious renal mass. The kidney measures 11.6 cm in maximum dimension. FREE FLUID: None. US/US abdomen limited IMPRESSION: Multiple small subcentimeter well-circumscribed hypoechoic cysts are seen within the liver. No biliary ductal dilatation. Normal gallbladder. 2 adjacent 6 mm right renal calculi.
== END 2021-10-29 09:54 | disposition home or self-care (01) ==
LOC: HO.US 09:53
PROVIDERS: Visit Provider Physician Assistant
DX: K76.0 Fatty (change of) liver, not elsewhere classified (principal); Z91.89 Other specified personal risk factors, not elsewhere classified
CPT/HCPCS: 76705

== ENCOUNTER → 2021-11-18 10:14 | Outpatient (BNVA) | payer BC, SELFPAY | PROVIDERS: PCP Nurse Practitioner Gerontology; Referring Provider Nurse Practitioner Gerontology; Visit Provider Internal Medicine | DX: I49.1 Atrial premature depolarization (principal); I47.2 Ventricular tachycardia; I10 Essential (primary) hypertension | CPT/HCPCS: 93005 ==

== ENCOUNTER 2021-11-27 10:40 | Outpatient (REF) | payer BC, SELFPAY ==
--- NOTE | ~2021-11-27 | MM_ITS ---
EXAMINATION: MM SCREENING DIGITAL BREAST TOMOSYNTHESIS, BILATERAL CLINICAL INFORMATION: Screening. Asymptomatic. The lifetime risk of breast cancer based on the Tyrer-Cuzick Model is 16%. COMPARISON: Mammography: November 07, 2020 and studies dating back to September 18, 2011 TECHNIQUE: Digital breast tomosynthesis is performed in both the craniocaudal and mediolateral oblique views along with computer-aided detection (CAD). Synthesized 2D images are generated from the tomosynthesis. FINDINGS: The breasts are almost entirely fatty (ACR BI-RADS breast composition Category a). There are no significant masses, abnormal calcifications, or other abnormalities. Stable intramammary lymph nodes and dermal calcifications are evident. MM/MM tomosynthesis screening BI IMPRESSION: No significant changes from prior exam. ASSESSMENT: BI-RADS 2: Benign RECOMMENDATION: Routine annual mammography screening. This patient's information was entered into a reminder system with a target due date for their next mammogram.
--- NOTE | ~2021-11-27 | US_ITS ---
EXAMINATION: US SCREENING ULTRASOUND BREAST, BILATERAL CLINICAL INFORMATION: Screening ultrasound. COMPARISON: Bilateral digital breast tomosynthesis mammography of July 28, 2021 and ultrasound study of December 03, 2019 TECHNIQUE: Ultrasound is performed using grayscale imaging and color Doppler. Imaging is performed to include the four quadrants and retroareolar region. Both breasts are imaged. FINDINGS: Right breast: There is no suspicious finding by ultrasound. There is no cystic or solid mass or focal architectural abnormality. No focal duct ectasia. No skin thickening. Left breast: There is no suspicious finding by ultrasound. There is no cystic or solid mass or focal architectural abnormality. No focal duct ectasia. No skin thickening. US/US breast LT complete IMPRESSION: Normal bilateral screening breast ultrasound. ASSESSMENT: BI-RADS 1: Negative RECOMMENDATION: Routine annual mammography screening. This patient's information was entered into a reminder system with a target due date for their next mammogram.
--- NOTE | ~2021-11-27 | US_ITS ---
EXAMINATION: US SCREENING ULTRASOUND BREAST, BILATERAL CLINICAL INFORMATION: Screening ultrasound. COMPARISON: Bilateral digital breast tomosynthesis mammography of July 28, 2021 and ultrasound study of December 03, 2019 TECHNIQUE: Ultrasound is performed using grayscale imaging and color Doppler. Imaging is performed to include the four quadrants and retroareolar region. Both breasts are imaged. FINDINGS: Right breast: There is no suspicious finding by ultrasound. There is no cystic or solid mass or focal architectural abnormality. No focal duct ectasia. No skin thickening. Left breast: There is no suspicious finding by ultrasound. There is no cystic or solid mass or focal architectural abnormality. No focal duct ectasia. No skin thickening. US/US breast RT complete IMPRESSION: Normal bilateral screening breast ultrasound. ASSESSMENT: BI-RADS 1: Negative RECOMMENDATION: Routine annual mammography screening. This patient's information was entered into a reminder system with a target due date for their next mammogram.
== END 2021-11-27 10:41 | disposition home or self-care (01) ==
LOC: HO.MAMMO 10:40
PROVIDERS: Visit Provider Surgery
DX: Z12.31 Encounter for screening mammogram for malignant neoplasm of breast (principal); Z91.89 Other specified personal risk factors, not elsewhere classified; Z80.3 Family history of malignant neoplasm of breast
CPT/HCPCS: 76641; 77063; 77067

== ENCOUNTER 2021-12-18 14:47 | Inpatient (IN) | payer BC, SELFPAY ==
--- NOTE | ~2021-12-18 | FL_ITS ---
EXAMINATION: XR FLUOROSCOPY WITH IMAGES CLINICAL INFORMATION: Cystoscopy, retrograde ureteroscopy, retrograde laser COMPARISON: None. TECHNIQUE: Fluoroscopy performed by Dr. Sang Neal. Fluoroscopy time: 0.7 minutes. Cumulative Dose: 15.6 mGy. DAP: 4.26 Gy-cm2. Images: 1. FINDINGS: Fluoroscopy was performed by the urology department. One image demonstrates retrograde access of the right ureter with opacification of the renal pelvis. A wire extends into a right mid-lower pole calyx. FL/FL guidance in OR IMPRESSION: Intraoperative fluoroscopy performed by the urology department. Please see operative report for further information.
--- NOTE | ~2021-12-18 | CT_ITS ---
EXAMINATION: CT ABDOMEN AND PELVIS WITHOUT CONTRAST CLINICAL INFORMATION: Right flank pain COMPARISON: 07/06/2017, 10/29/2021 ultrasound report TECHNIQUE: Multidetector volumetric imaging was performed from the superior aspect of the liver through the pubic symphysis. Sagittal and coronal reformatted images were obtained on the technologist's workstation. This CT examination was performed using dose optimization techniques as appropriate, variously including the following: *Automated exposure control *Adjustment of mA and/or kV according to patient size (this includes techniques or standardized protocols for targeted exams where dose is matched to indication/reason for exam; i.e. extremities or head) *Use of iterative reconstruction technique DLP: 836 mGy-cm FINDINGS: LUNG BASES: The visualized lung bases are unremarkable. LIVER, GALLBLADDER, AND BILIARY TREE: Multiple areas of low density seen without the liver. Some of these are larger than previous. Other possible small new areas. Seen to be cystic change on ultrasound from 10/29/2021. These are too small to adequately be characterized on this scan. The gallbladder is unremarkable with no evidence of radiopaque gallstones, gallbladder wall thickening, or obvious pericholecystic inflammatory changes. PANCREAS: Unremarkable. SPLEEN: Unremarkable. ADRENAL GLANDS: Unremarkable. KIDNEYS AND URETERS: Hydronephrosis on the right. This appears to be caused by a 7 mm calculus in the proximal right ureter.. Other smaller nonobstructing calculi in the right kidney noted. BLADDER: Decompressed bladder. GASTROINTESTINAL TRACT: The bowel pattern is nonobstructing. ABDOMINAL WALL: No significant hernia is appreciated. LYMPH NODES: Normal. VASCULAR: Unremarkable. PELVIC VISCERA: Unremarkable. OSSEOUS STRUCTURES: Unremarkable. IMPRESSION mild to moderate hydronephrosis on the right caused by a 7 mm calculus in the proximal right ureter.: Fleischner guidelines were followed.
[2021-12-18 15:21] VITALS: BP 157/96; PULSE 111; RESP 18; TEMP 36.7; O2SAT 100; BMI 38.4
[2021-12-18 15:42] LABS: MANUAL DIFF FLAG NO
[2021-12-18 15:45] LABS: Basophils Percent Auto 0.3 % (0-2); Hematocrit 41.1 % (37.0-47.0); Hemoglobin 13.5 g/dl (12.0-16.0); Imm Gran Abs Auto 0.06 X10*3/uL (0.00-0.03); Imm Gran Pct Auto 0.5 % (0.0-0.4); Lymphocytes Absolute Auto 0.6 X10*3/uL (1.2-4.9); Lymphocytes Percent Auto 5.5 % (20-40); Mean Corpuscular HGB Conc 32.8 g/dl (31.0-35.0); Mean Corpuscular Hemoglobin 29.5 pg (27.0-33.0); Mean Corpuscular Volume 89.9 fL (80.0-98.0); Mean Platelet Volume 10.3 fL (9.4-12.3); Monocytes Absolute Auto 0.3 X10*3/uL (0.1-1.2); Monocytes Percent Auto 2.5 % (2-11); Neutrophils Absolute Auto 10.3 x10*3/uL (2.0-8.3); Neutrophils Percent Auto 91.2 % (45-73); Platelet Count 264 X10*3/uL (160-400); Red Blood Count 4.57 X10*6/uL (4.20-5.50); Red Cell Distribution Width 13.4 % (11.0-16.0); SCAN SMEAR FLAG 1; White Blood Count 11.3 X10*3/uL (4.8-10.8)
[2021-12-18 16:04] LABS: Anion Gap 16 (12-20); Blood Urea Nitrogen 19 mg/dL (9-16); Calcium 9.7 mg/dL (8.4-10.2); Carbon Dioxide 22 mmol/L (22-29); Chloride 107 mmol/L (96-108); Estimated Glomerular Filt Rate 52; Glucose Random 122 mg/dL (60-115); Potassium 4.5 mmol/L (3.3-5.1); Sodium 140 mmol/L (135-145)
--- NOTE | 2021-12-18 19:33 | PC.NURSE ---
needle control cheniller received call from patient while in waiting room reporting worsening pain, vomiting x5 bags and has a call out to DR Neal. Pt reports 7mm stone stating we know that's not going to pass and state she has a call out to Dr Neal's office. RN to follow up
[2021-12-18] MEDS: Ondansetron ODT 4 MG TAB.RAPDIS TRANSLINGU (20:33)
[2021-12-18 20:38] VITALS: BP 148/95; PULSE 105; RESP 22; O2SAT 98
--- NOTE | 2021-12-18 22:13 | ED.FEMALEGU ---
HPI - Female Genitourinary General Chief complaint: Urogenital-Female Stated complaint: Kidney Pain, vomiting Time Seen by Provider: 12/18/21 16:47 Source: patient and family (Son) Mode of arrival: ambulatory Limitations: no limitations History of Present Illness HPI Narrative: 46-year-old female came in for evaluation of right lower abdominal pain and right flank pain. Patient is started few days ago patient is well known to Dr. Neal for previous kidney stones with multiple urological procedures, known to have 7 mm stone in the proximal right ureter the patient was sent for pain control and prepare for tomorrow for urological procedure and stent placement. Patient declined any fever chills. Patient unable to urinate in the ED. Related Data Home Medications Medication Instructions Recorded Confirmed ibuprofen 800 mg tablet 800 mg PO TID PRN pain 02/05/20 11/18/21 losartan 25 mg tablet 25 mg PO DAILY 02/05/20 11/18/21 meclizine 12.5 mg tablet 1 tab PO TID PRN Vertigo 06/18/20 11/18/21 albuterol sulfate 90 mcg/actuation 2 puff PO Q4H PRN wheezing 10/02/20 11/18/21 aerosol inhaler levalbuterol HCl 0.63 mg/3 mL 0.63 mg inhalation TID PRN Wheezing 10/02/20 11/18/21 solution for nebulization lorazepam 0.5 mg tablet 0.5 mg PO DAILY PRN anxiety 10/02/20 11/18/21 fluticasone 500 mcg-salmeterol 50 1 puff inhalation BID 08/20/21 11/18/21 mcg/dose blistr powdr for inhalation (Wixela Inhub) tramadol 50 mg tablet 1 tab PO Q12H PRN pain 09/23/21 11/18/21 Previous Rx's Medication Instructions Recorded sumatriptan succinate 25 mg tablet 25 mg PO Q2-4H PRN migraine 06/18/20 (Imitrex) headache #7 tabs diltiazem HCl 120 mg 120 mg PO BID 90 days #180 caps 03/13/21 capsule,extended release 24 hr pyridoxine (vitamin B6) 100 mg 100 mg PO DAILY 90 days #90 tabs 05/09/21 tablet ondansetron 4 mg disintegrating 4 mg PO Q8H 3 days #9 tabs 08/12/21 tablet hydrocortisone 2.5 % topical cream 1 appl MI BEDTIME PRN hemorrhoids 09/16/21 with perineal applicator #30 grams (Proctosol HC) phenazopyridine 100 mg tablet 100 mg PO TID PRN pain 5 days #15 09/19/21 (Pyridium) tabs tamsulosin 0.4 mg capsule 0.4 mg PO BEDTIME 14 days #14 caps 09/24/21 Allergies Allergy/AdvReac Type Severity Reaction Status Date / Time cephalexin [CEPHALEXIN] Allergy Severe SWELLING Verified 12/10/21 12:02 clavulanic acid Allergy Severe ANAPHYLAXIS Verified 12/10/21 12:02 [From AUGMENTIN] clindamycin [CLINDAMYCIN] Allergy Severe TONGUE Verified 12/10/21 12:02 SWELLING codeine Allergy Severe PASSED OUT Verified 12/10/21 12:02 influenza virus vaccine, Allergy Severe ANAPHYLAXIS Verified 12/10/21 12:02 specific [FLU VACCINE] perflutren [From Definity] Allergy Severe hives/anaph Verified 12/10/21 12:02 ylaxis seafood Allergy Severe anaphylaxis Verified 12/10/21 12:02 fluconazole Allergy Intermediate HIVES Verified 12/10/21 12:02 gentamicin [GENTAMICIN] Allergy Intermediate RASH Verified 12/10/21 12:02 oxycodone Allergy Intermediate SOB Verified 12/10/21 12:02 sulfamethoxazole Allergy Mild swelling Verified 12/10/21 12:02 [From Bactrim] trimethoprim [From Bactrim] Allergy Mild swelling Verified 12/10/21 12:02 Iodinated Contrast Media Allergy Hives Verified 12/10/21 12:02 [IV Contrast Dye] scopolamine AdvReac Severe Vomiting Verified 12/10/21 12:02 midazolam AdvReac Intermediate Vomiting Verified 12/10/21 12:02 Review of Systems Review of Systems: All other systems are reviewed and are negative Constitutional: Reports as per HPI and Reports no additional constitutional complaints Eyes: Reports as per HPI and Reports no additional eye complaints Reports system reviewed and no additional complaints, except as documented Cardiovascular: Reports as per HPI and Reports no additional cardiovascular complaints Respiratory: Reports as per HPI and Reports no additional respiratory complaints Gastrointestinal: Reports as per HPI and Reports no additional gastrointestinal complaints Genitourinary: Reports no additional female genitourinary complaints Musculoskeletal: Reports no additional musculoskeletal complaints Skin/Breast: Reports system reviewed and no additional complaints, except as docu Psychiatric: Reports no additional psychiatric complaints Endocrine: Reports no additional endocrine complaints Hematologic/Lymphatic: Reports no additional hematologic/lymphatic complaints Allergic/Immunologic: Reports no additional allergic/immunologic complaints Reports system reviewed and no additional complaints, except as documented and Reports Abnormal speech present [facility] Past Medical History Medical History Abdominal pain Asthma Atypical chest pain Carotid artery disease Essential hypertension Fibromyalgia H/O ganglion cyst History of COVID-19 HTN (hypertension) Kidney stones Migraine Morbid obesity with BMI of 40.0-44.9, adult NAFLD (nonalcoholic fatty liver disease) NSVT (nonsustained ventricular tachycardia) PAC (premature atrial contraction) Palpitations Post-operative nausea and vomiting PVC (premature ventricular contraction) Vertigo Surgical History H/O colonoscopy H/O esophagogastroduodenoscopy History of endometrial ablation History of partial hysterectomy Hx of cystoscopy Hx of lithotripsy Family History Family History Father Skin cancer Cardiovascular disease Myocardial infarction Hypertension IBS (irritable bowel syndrome) Mother Hypertension Sister Myocardial infarction Hypertension Heartburn Paternal Uncle Colon cancer Paternal Grandmother Colon cancer Social History Social History Household Members: Children Housing: House Do you presently have visiting nurse or other home services: No Alcohol intake: current Alcohol intake frequency: does not drink Patient Tobacco Use Status: Never used Tobacco Second Hand Smoke Exposure: No Advance Directives: Yes Advance Directives on File: Yes Advance Directives Date on File: 08/21/21 service: No Current occupational status: employed Physical Exam Vital Signs: Vital Signs: Last Vital Signs Temp 98.1 F 12/18/21 15:21 Pulse 105 H 12/18/21 20:38 Resp 22 H 12/18/21 20:38 BP 148/95 H 12/18/21 20:38 Pulse Ox 98 12/18/21 20:38 O2 Del Method 12/18/21 20:38 BMI result Body Mass Index 38.4 Vital signs have been reviewed as appeared to be correct. Blood pressure normal. Heart rate normal. Respiration rate normal. Temperature normal. Oxygen saturation normal. Appearance: Alert. Oriented X3. No acute distress. Head: Normal external exam. Normocephalic. Atraumatic. No Hicks signs noted. No raccoon eyes noted Eyes: PERRLA. EOMI. Conjunctiva and sclera normal. Eyelids normal. ENT: TM's Normal. Pharynx normal. Uvula midline. Moist mucous membranes. No trismus noted. No drooling noted. No muffled voice noted. Neck: Normal inspection. Neck supple. FROM. No adenopathy. Thyroid Normal. No meningeal signs. No neck mass noted. CVS: Normal heart rate and rhythm. Heart sound normal. No murmurs noted. Pulses normal throughout. Respiratory: No respiratory distress. Painless inspiration. Breath sounds normal. No wheezes/rales/rhonchi noted. Chest nontender. No accessory muscle usage noted or decreased air movement noted. Abdomen: Soft and nontender. Bowel sounds normal in all 4 quadrants. No distention noted. No organomegaly noted. No visible injury noted. Back: No CVA tenderness. Full range of motion noted. Skin: Skin warm and dry. Normal skin color. Normal skin turgor. No rashes/lesions/lacerations noted. Extremities: No lower extremity edema. Extremities exhibit normal range of motion. Extremities nontender. Neuro: Oriented X 3. Cranial nerve exam: II-XII are grossly intact No motor deficit. No sensory deficit. Reflexes normal. Course Course Course Narrative: 46-year-old female known history of right ureteric obstructing kidney stone came in with right abdominal/flank pain, patient had a history of multiple urological procedures done by Dr. Neal, patient was sent for admission for further preparation for tomorrow procedure and stent placement in the right ureter. Patient unable to urinate and refusing straight catheterization for now since urine is not available will will give 1 dose of Levaquin empirically. The case was discussed with Dr. Neal MDM - Female Genitourinary Lab Data Attestation: I reviewed the patient's lab results. Result diagrams: 12/18/21 15:39 12/18/21 15:39 Labs: Lab Results 12/18/21 12/18/21 Range/Units 15:39 15:39 WBC 11.3 H (4.8-10.8) X10*3/uL RBC 4.57 (4.20-5.50) X10*6/uL Hgb 13.5 (12.0-16.0) g/dl Hct 41.1 (37.0-47.0) % MCV 89.9 (80.0-98.0) fL MCH 29.5 (27.0-33.0) pg MCHC 32.8 (31.0-35.0) g/dl RDW 13.4 (11.0-16.0) % Plt Count 264 (160-400) X10*3/uL MPV 10.3 (9.4-12.3) fL Immature Gran % (Auto) 0.5 H (0.0-0.4) % Neut % (Auto) 91.2 H (45-73) % Lymph % (Auto) 5.5 L (20-40) % [place] % (Auto) 2.5 (2-11) % Eos % (Auto) 0.0 (0-4) % Baso % (Auto) 0.3 (0-2) % Lymph # (Auto) 0.6 L (1.2-4.9) X10*3/uL [place] # (Auto) 0.3 (0.1-1.2) X10*3/uL Eos # (Auto) 0.0 (0.0-0.4) X10*3/uL Baso # (Auto) 0.0 (0.0-0.2) X10*3/uL Abs Immat Gran (auto) 0.06 H (0.00-0.03) X10*3/uL Absolute Neuts (auto) 10.3 H (2.0-8.3) x10*3/uL Absolute Nucleated RBC 0.000 (0.0-0.012) X10*3/uL Nucleated RBC % (auto) 0.0 (0.0-0.2) /100WBC Sodium 140 (135-145) mmol/L Potassium 4.5 (3.3-5.1) mmol/L Chloride 107 (96-108) mmol/L Carbon Dioxide 22 (22-29) mmol/L Anion Gap 16 (12-20) BUN 19 H (9-16) mg/dL Creatinine 1.12 (0.5-1.4) mg/dL Estim Creat Clear Calc 66.0 Estimated GFR 52 Random Glucose 122 H (60-115) mg/dL Calcium 9.7 D (8.4-10.2) mg/dL Imaging Data CT scan - abdomen: Attestation: I personally reviewed and interpreted this imaging study as follows: Radiologist's impression: mild to moderate hydronephrosis on the right caused by a 7 mm calculus in the proximal right ureter.: ? Discharge Plan Discharge Clinical Impression: Kidney stones Patient Disposition: Admitted As Inpatient Prescriptions: No Action diltiazem HCl 120 mg capsule,extended release 24hr 120 mg PO BID 90 Days Qty: 180 3RF phenazopyridine [Pyridium] 100 mg tablet 100 mg PO TID PRN (Reason: pain) 5 Days Qty: 15 0RF tamsulosin 0.4 mg capsule 0.4 mg PO BEDTIME 14 Days Qty: 14 0RF meclizine 12.5 mg tablet 1 tab PO TID PRN (Reason: Vertigo) sumatriptan succinate [Imitrex] 25 mg tablet 25 mg PO Q2-4H PRN (Reason: migraine headache) Qty: 7 0RF Rx Instructions: do not exceed 8 doses per 24 hrs fluticasone propion-salmeterol [Wixela Inhub] 500-50 mcg/dose blister with device 1 puff inhalation BID tramadol 50 mg tablet 1 tab PO Q12H PRN (Reason: pain) losartan 25 mg tablet 25 mg PO DAILY Rx Instructions: PATIENT TAKES ONLY IF NEEDED ibuprofen 800 mg tablet 800 mg PO TID PRN (Reason: pain) lorazepam 0.5 mg tablet 0.5 mg PO DAILY PRN (Reason: anxiety) levalbuterol HCl 0.63 mg/3 mL solution for nebulization 0.63 mg inhalation TID PRN (Reason: Wheezing) albuterol sulfate 90 mcg/actuation HFA aerosol inhaler 2 puff PO Q4H PRN (Reason: wheezing) pyridoxine (vitamin B6) 100 mg tablet 100 mg PO DAILY 90 Days Qty: 90 1RF ondansetron 4 mg tablet,disintegrating 4 mg PO Q8H 3 Days Qty: 9 0RF hydrocortisone [Proctosol HC] 2.5 % cream with perineal applicator 1 appl MI BEDTIME PRN (Reason: hemorrhoids) Qty: 30 3RF
[2021-12-18] MEDS: Ketorolac Tromethamine 30 MG/ML VIAL IVPUSH (22:46)
[2021-12-18] MEDS: ondansetron HCL 4 MG/2 ML VIAL IVPUSH (22:46)
[2021-12-18] MEDS: HYDROmorphone HCl 2 MG/ML VIAL IVPUSH (22:46)
[2021-12-18] MEDS: 0.9 % Sodium Chloride 1,000 ML 999 ML IV (22:47)
[2021-12-18] MEDS: levoFLOXacin/D5W 750 MG/150 ML PIGGYBACK 100 MG IV (22:51)
[2021-12-18 23:08] LABS: Lactic Acid 0.8 mmol/L (0.5-2.0)
--- NOTE | 2021-12-18 23:19 | P.HPHOSP_ITS ---
History of Present Illness Date of Service: 12/18/21 Chief Complaint: right flank pain 46-year-old female with a past medical history of hypertension, hyperlipidemia, nonalcoholic fatty liver, history of NSVT/PSC-on diltiazem, fibromyalgia, carotid artery disease, asthma, obesity, migraines, vertigo, history of kidney stones status post lithotripsy/cystoscopy -has been following with Urology; and is planned for laser lithotripsy on the right side in next couple weeks; has had left side lithotripsy done in September. Presented to the hospital today with a chief complaint of right flank pain. Patient mentioned that she went to the work today and dominant 5 pain in her right flank, radiating down to the groin, 10/10 in intensity; associated nausea and vomiting. Denies any fevers and chills. Denies any urinary frequency or urgency. Denies any hematuria. Patient denies any chest pain or palpitations. Denies any diarrhea. Denies any cough or sputum production. Review of all other systems is negative except mentioned above ER course: Per ER team patient noted to have 7 mm ureteral stone with hydronephrosis. Notified Dr. Neal-recommended admission to the medicine service and pain control. Patient also received antibiotics for UTI. [facility] Medical History Abdominal pain Asthma Atypical chest pain Carotid artery disease Essential hypertension Fibromyalgia H/O ganglion cyst History of COVID-19 HTN (hypertension) Kidney stones Migraine Morbid obesity with BMI of 40.0-44.9, adult NAFLD (nonalcoholic fatty liver disease) NSVT (nonsustained ventricular tachycardia) PAC (premature atrial contraction) Palpitations Post-operative nausea and vomiting PVC (premature ventricular contraction) Vertigo Family History Father Skin cancer Cardiovascular disease Myocardial infarction Hypertension IBS (irritable bowel syndrome) Mother Hypertension Sister Myocardial infarction Hypertension Heartburn Paternal Uncle Colon cancer Paternal Grandmother Colon cancer Surgical History H/O colonoscopy H/O esophagogastroduodenoscopy History of endometrial ablation History of partial hysterectomy Hx of cystoscopy Hx of lithotripsy Social History Household Members: Children Housing: House Do you presently have visiting nurse or other home services: No Alcohol intake: current Alcohol intake frequency: does not drink Patient Tobacco Use Status: Never used Tobacco Second Hand Smoke Exposure: No Advance Directives: Yes Advance Directives on File: Yes Advance Directives Date on File: 08/21/21 service: No Current occupational status: employed Meds Allergies Allergy/AdvReac Type Severity Reaction Status Date / Time cephalexin [CEPHALEXIN] Allergy Severe SWELLING Verified 12/10/21 12:02 clavulanic acid Allergy Severe ANAPHYLAXIS Verified 12/10/21 12:02 [From AUGMENTIN] clindamycin [CLINDAMYCIN] Allergy Severe TONGUE Verified 12/10/21 12:02 SWELLING codeine Allergy Severe PASSED OUT Verified 12/10/21 12:02 influenza virus vaccine, Allergy Severe ANAPHYLAXIS Verified 12/10/21 12:02 specific [FLU VACCINE] perflutren [From Definity] Allergy Severe hives/anaph Verified 12/10/21 12:02 ylaxis seafood Allergy Severe anaphylaxis Verified 12/10/21 12:02 fluconazole Allergy Intermediate HIVES Verified 12/10/21 12:02 gentamicin [GENTAMICIN] Allergy Intermediate RASH Verified 12/10/21 12:02 oxycodone Allergy Intermediate SOB Verified 12/10/21 12:02 sulfamethoxazole Allergy Mild swelling Verified 12/10/21 12:02 [From Bactrim] trimethoprim [From Bactrim] Allergy Mild swelling Verified 12/10/21 12:02 Iodinated Contrast Media Allergy Hives Verified 12/10/21 12:02 [IV Contrast Dye] scopolamine AdvReac Severe Vomiting Verified 12/10/21 12:02 midazolam AdvReac Intermediate Vomiting Verified 12/10/21 12:02 Active Medications: Current Medications Levofloxacin (Levaquin) 750 mg in 150 mls @ 100 mls/hr IV ONCE ONE Stop: 12/18/21 23:45 Last Admin: 12/18/21 22:51 Dose: 100 mls/hr Home Medications Medication Instructions Recorded Confirmed Last Taken Type ibuprofen 800 mg tablet 800 mg PO TID PRN pain 02/05/20 11/18/21 Unknown History losartan 25 mg tablet 25 mg PO DAILY 02/05/20 11/18/21 09/22/21 History meclizine 12.5 mg tablet 1 tab PO TID PRN Vertigo 06/18/20 11/18/21 Unknown History albuterol sulfate 90 mcg/actuation 2 puff PO Q4H PRN wheezing 10/02/20 11/18/21 Unknown History aerosol inhaler levalbuterol HCl 0.63 mg/3 mL 0.63 mg inhalation TID PRN Wheezing 10/02/20 11/18/21 Unknown History solution for nebulization lorazepam 0.5 mg tablet 0.5 mg PO DAILY PRN anxiety 10/02/20 11/18/21 Unknown History fluticasone 500 mcg-salmeterol 50 1 puff inhalation BID 08/20/21 11/18/21 0 08/20/21 History mcg/dose blistr powdr for inhalation (Darnell Inhalexandra) tramadol 50 mg tablet 1 tab PO Q12H PRN pain 09/23/21 11/18/21 Unknown History Physical Exam Vital Signs and Narrative: Vital Signs: Last Vital Signs Temp 98.1 F 12/18/21 15:21 Pulse 105 H 12/18/21 20:38 Resp 22 H 12/18/21 20:38 BP 148/95 H 12/18/21 20:38 Pulse Ox 98 12/18/21 20:38 O2 Del Method 12/18/21 20:38 BMI result Body Mass Index 38.4 Gen: Appears be in no acute distress HEENT: NCAT, Moist mucosa. Pulmonary: Vesicular breath sounds, fair air entry CVS: Normal S1-S2 Abdomen: BS+, Soft, Tender in the right flank Extremities: Warm well perfused Neuro: Alert and awake. Results Labs CBC and Chem 7: 12/18/21 15:39 12/18/21 15:39 Labs: Laboratory Results - last 24 hr 12/18/21 12/18/21 12/18/21 15:39 15:39 22:39 MCV 89.9 MCH 29.5 MCHC 32.8 RDW 13.4 Plt Count 264 MPV 10.3 Immature Gran % (Auto) 0.5 H Neut % (Auto) 91.2 H Lymph % (Auto) 5.5 L [place] % (Auto) 2.5 Eos % (Auto) 0.0 Baso % (Auto) 0.3 Lymph # (Auto) 0.6 L [place] # (Auto) 0.3 Eos # (Auto) 0.0 Baso # (Auto) 0.0 Abs Immat Gran (auto) 0.06 H Absolute Neuts (auto) 10.3 H Absolute Nucleated RBC 0.000 Nucleated RBC % (auto) 0.0 Anion Gap 16 Estim Creat Clear Calc 66.0 Estimated GFR 52 Random Glucose 122 H Lactic Acid 0.8 Calcium 9.7 D Assessment and Plan (1) Kidney stones: Status: Acute (2) UTI (urinary tract infection): Status: Acute Plan 46-year-old female with a past medical history of hypertension, hyperlipidemia, nonalcoholic fatty liver, history of NSVT/PVC-on diltiazem, fibromyalgia, carotid artery disease, asthma, obesity, migraines, vertigo, history of kidney stones status post lithotripsy/cystoscopy -has been following with Urology; and is planned for laser lithotripsy on the right side in next couple weeks; has had left side lithotripsy done in September. Presented to the hospital today with a chief complaint of right flank pain. noted to have right-sided ureteral stone with hydronephrosis. Admitted for further management. Ureteral stone/ mild to moderate hydronephrosis: Noted to be 7 mm stone. Urinalysis abnormal consistent with UTI-continue Levaquin Pain control Dr. Neal aware of the patient continue Flomax History of asthma: Stable History of NSVT/ PVC: Patient on diltiazem. History of anxiety: Continue home lorazepam History of hypertension: Continue home Losartan DVT prophylaxis: Subcu heparin Code status: Full code Quality Stroke Does the patient have a stroke diagnosis?: No VTE Prior VTE?: No VTE Risk Level:: Medical - moderate - high VTE Device Contraindication: Treatment Not Indicated VTE Drug Contraindication: N/A - Med Ordered
[2021-12-19] VITALS (15 sets, daily range): BP systolic 96–158; BP diastolic 56–97; PULSE 52–79; RESP 14–18; TEMP 36.2–36.9; O2SAT 97–100
[2021-12-19] MEDS: Dextrose 5 % and 0.45 % NaCl 1,000 ML 100 ML IVCONT ×2 (00:44→10:00)
[2021-12-19] MEDS: Heparin Sodium,Porcine 5,000 UNIT/ML VIAL 5000 UNIT SUBCUT ×2 (00:44→07:41)
[2021-12-19 02:29] LABS: Appearance Urine Clear; Color Urine Orange; Glucose Urine UA Negative (Negative); Leukocyte Esterase Urine Small (1+) (Negative); Nitrite Urine Positive (Negative); UMIC TRIGGER UACC YES; Urine Blood Trace (Negative); Urine Ketones Negative (Negative); Urine Protein Trace mg/dL (Neg-Trace)
[2021-12-19 02:35] LABS: Bacteria Urine None Seen (None Seen); Hyaline Casts Urine 0-2 /LPF (0-2); Squamous Epithelial Cell Urine 0-2 /HPF (0-2); UACC Culture Trigger YES; WBC Urine 0-5 /HPF (0-5)
[2021-12-19] MEDS: ondansetron HCL 4 MG/2 ML VIAL IVPUSH ×2 (03:26→19:33)
[2021-12-19] MEDS: Acetaminophen 325 MG TABLET 650 MG PO (03:27)
[2021-12-19] MEDS: HYDROmorphone HCl 1 MG/ML SYRINGE 0.5 MG IVPUSH ×2 (03:28→07:43)
[2021-12-19 06:22] LABS: COVID-19 Test Positive (Negative)
[2021-12-19 06:54] LABS: MANUAL DIFF FLAG NO
[2021-12-19 06:57] LABS: Basophils Absolute Auto 0.1 X10*3/uL (0.0-0.2); Basophils Percent Auto 0.5 % (0-2); Eosinophils Percent Auto 0.1 % (0-4); Hemoglobin 11.7 g/dl (12.0-16.0); Imm Gran Abs Auto 0.08 X10*3/uL (0.00-0.03); Imm Gran Pct Auto 0.7 % (0.0-0.4); Lymphocytes Absolute Auto 2.1 X10*3/uL (1.2-4.9); Lymphocytes Percent Auto 18.6 % (20-40); Mean Corpuscular HGB Conc 32.5 g/dl (31.0-35.0); Mean Corpuscular Hemoglobin 29.5 pg (27.0-33.0); Mean Corpuscular Volume 90.7 fL (80.0-98.0); Mean Platelet Volume 10.2 fL (9.4-12.3); Monocytes Absolute Auto 1.4 X10*3/uL (0.1-1.2); Neutrophils Absolute Auto 7.7 x10*3/uL (2.0-8.3); Neutrophils Percent Auto 68.1 % (45-73); Platelet Count 226 X10*3/uL (160-400); Red Blood Count 3.97 X10*6/uL (4.20-5.50); Red Cell Distribution Width 13.6 % (11.0-16.0); White Blood Count 11.3 X10*3/uL (4.8-10.8)
[2021-12-19 07:17] LABS: Anion Gap 13 (12-20); Blood Urea Nitrogen 20 mg/dL (9-16); Calcium 8.5 mg/dL (8.4-10.2); Carbon Dioxide 23 mmol/L (22-29); Chloride 108 mmol/L (96-108); Creatinine Clr Calc Pharmacy 78.7; Estimated Glomerular Filt Rate > 60; Glucose Random 90 mg/dL (60-115); Sodium 140 mmol/L (135-145)
[2021-12-19] MEDS: 0.9 % Sodium Chloride Flush 3 ML SYRINGE IVFLUSH (07:44)
--- NOTE | 2021-12-19 09:05 | PHA.MEDREC ---
Pharmacy Consult ? Medication Reconciliation Pharmacy has completed the medication reconciliation.
[2021-12-19] MEDS: levoFLOXacin/D5W 500 MG/100 ML PIGGYBACK 100 MG IV (09:24)
--- NOTE | 2021-12-19 11:14 | PC.NURSE ---
report given to RN in short stay. per RN pt will not be taken to OR until later this evening d/t + COVID status. pt aware of plan. vss.
--- NOTE | 2021-12-19 11:17 | P.PNIM_ITS ---
Subjective Subjective Date of Service: 12/19/21 Interval History: cc: flank pain interval history:unchanged Cardiovascular Cardiovascular: Reports no additional cardiovascular complaints Respiratory Respiratory: Reports no additional respiratory complaints Physical Exam Vital Signs: Vital Signs: Last Vital Signs Temp 98.1 F 12/19/21 07:27 Pulse 66 12/19/21 10:06 Resp 14 12/19/21 07:27 BP 116/78 12/19/21 10:06 Pulse Ox 99 12/19/21 10:06 O2 Del Method 12/19/21 10:06 BMI result Body Mass Index 38.4 General: AO X 3, no acute distress Resp: CTA bilateral, no accessory muscles used CVS: S1,S2,RRR GI: soft, non tender, non distended Neuro: motor grossly intact, alert Psych: appropriate affect, appropriate insight Objective Data Active Medications Acetaminophen (Acetaminophen 325 Mg Tablet) 650 mg PO Q6H PRN PRN Reason: Pain, Mild (Pain Scale 1-3) Last Admin: 12/19/21 03:27 Dose: 650 mg Documented By: PATY Heparin Sodium (Porcine) (Heparin Sodium,Porcine 5,000 Unit/Ml Vial) 5,000 unit SUBCUT Q8H [facility]SA Last Admin: 12/19/21 07:41 Dose: 5,000 unit Documented By: JOSE DANIEL Hydrocortisone (Hydrocortisone 2.5 % Rectal Cr 30 Gm Tube) 1 appl GA BEDTIME PRN PRN Reason: hemorrhoids Hydromorphone HCl (Hydromorphone Hcl 1 Mg/Ml Syringe) 0.5 mg IVPUSH Q4H PRN; Protocol PRN Reason: Pain, Severe (Pain Scale 7-10) Last Admin: 12/19/21 07:43 Dose: 0.5 mg Documented By: JOSE DANIEL Dextrose/Sodium Chloride (D51/2ns) 1,000 mls @ 100 mls/hr IVCONT .Q10H [facility]SA Last Admin: 12/19/21 10:00 Dose: 100 mls/hr Documented By: JOHNNY Levofloxacin (Levaquin) 750 mg in 150 mls @ 100 mls/hr IV Q24H [facility] Melatonin (Melatonin 3 Mg Tablet) 6 mg PO BEDTIME PRN PRN Reason: Insomnia Ondansetron HCl (Ondansetron Hcl 4 Mg/2 Ml Vial) 4 mg IVPUSH Q8H PRN PRN Reason: Nausea and Vomiting Last Admin: 12/19/21 03:26 Dose: 4 mg Documented By: PATY Pyridoxine HCl (Pyridoxine Hcl (Vitamin B6) 50 Mg Tablet) 100 mg PO DAILY [facility] Last Admin: 12/19/21 10:41 Dose: Not Given Documented By: JOHNNY Non-Admin Reason: NPO Senna (Sennosides 8.6 Mg Tablet) 17.2 mg PO BEDTIME PRN PRN Reason: Constipation Sodium Chloride (0.9 % Sodium Chloride Flush 3 Ml Syringe) 3 ml IVFLUSH QSHIFT [facility] Last Admin: 12/19/21 07:44 Dose: 3 ml Documented By: SERRANX Sumatriptan Succinate (Sumatriptan Succinate 25 Mg Tablet) 25 mg PO Q2H PRN PRN Reason: migraine headache Labs CBC & Chem 7: 12/19/21 06:30 12/19/21 06:30 Labs: Laboratory Results - last 24 hr 12/18/21 12/18/21 12/18/21 15:39 15:39 22:39 MCV 89.9 MCH 29.5 MCHC 32.8 RDW 13.4 Plt Count 264 MPV 10.3 Immature Gran % (Auto) 0.5 H Neut % (Auto) 91.2 H Lymph % (Auto) 5.5 L [place] % (Auto) 2.5 Eos % (Auto) 0.0 Baso % (Auto) 0.3 Lymph # (Auto) 0.6 L [place] # (Auto) 0.3 Eos # (Auto) 0.0 Baso # (Auto) 0.0 Abs Immat Gran (auto) 0.06 H Absolute Neuts (auto) 10.3 H Absolute Nucleated RBC 0.000 Nucleated RBC % (auto) 0.0 Anion Gap 16 Estim Creat Clear Calc 66.0 Estimated GFR 52 Random Glucose 122 H Lactic Acid 0.8 Calcium 9.7 D Urine Color Urine Appearance Urine pH Ur Specific [place] Urine Protein Urine Glucose (UA) Urine Ketones Urine Blood Urine Nitrite Ur Leukocyte Esterase Urine RBC Urine WBC Ur Squamous Epith Cells Urine Bacteria Hyaline Casts COVID-19 ([facility]) COVID-19 Clin Com 12/19/21 12/19/21 12/19/21 02:17 06:05 06:30 MCV 90.7 MCH 29.5 MCHC 32.5 RDW 13.6 Plt Count 226 MPV 10.2 Immature Gran % (Auto) 0.7 H Neut % (Auto) 68.1 Lymph % (Auto) 18.6 L [place] % (Auto) 12.0 H Eos % (Auto) 0.1 Baso % (Auto) 0.5 Lymph # (Auto) 2.1 [place] # (Auto) 1.4 H Eos # (Auto) 0.0 Baso # (Auto) 0.1 Abs Immat Gran (auto) 0.08 H Absolute Neuts (auto) 7.7 Absolute Nucleated RBC 0.000 Nucleated RBC % (auto) 0.0 Anion Gap Estim Creat Clear Calc Estimated GFR Random Glucose Lactic Acid Calcium Urine Color [place] A Urine Appearance Clear Urine pH 5.0 Ur Specific [place] 1.020 Urine Protein Trace Urine Glucose (UA) Negative Urine Ketones Negative Urine Blood Trace H Urine Nitrite Positive H Ur Leukocyte Esterase Small (1+) H Urine RBC 6-10 H Urine WBC 0-5 Ur Squamous Epith Cells 0-2 Urine Bacteria None Seen Hyaline Casts 0-2 COVID-19 (JAKE) Positive A COVID-19 Clin Com See Note 12/19/21 06:30 MCV MCH MCHC RDW Plt Count MPV Immature Gran % (Auto) Neut % (Auto) Lymph % (Auto) [place] % (Auto) Eos % (Auto) Baso % (Auto) Lymph # (Auto) [place] # (Auto) Eos # (Auto) Baso # (Auto) Abs Immat Gran (auto) Absolute Neuts (auto) Absolute Nucleated RBC Nucleated RBC % (auto) Anion Gap 13 Estim Creat Clear Calc 78.7 Estimated GFR > 60 Random Glucose 90 Lactic Acid Calcium 8.5 D Urine Color Urine Appearance Urine pH Ur Specific [place] Urine Protein Urine Glucose (UA) Urine Ketones Urine Blood Urine Nitrite Ur Leukocyte Esterase Urine RBC Urine WBC Ur Squamous Epith Cells Urine Bacteria Hyaline Casts COVID-19 (JAKE) COVID-19 Clin Com Assessment and Plan (1) UTI (urinary tract infection): Status: Acute Plan 46F with pmh of HTN, HLD, NAFLD, moderate persistent asthma, obesity, migraines, nephrolithiasis presented with renal stone and right hydro Right obstructing ureteral stone complicated by mild to moderate hydronephrosis and UTI Continue Levaquin, pain control, IV fluids, Flomax Plan for ureteral stent today. Moderate persistent asthma Stable, continue inhalers as needed History of palpitations Diltiazem Hypertension Losartan Anxiety Ativan DVT prophylaxis with heparin subQ Full code reason for continued hospitalization: plan for procedure Quality Stroke Does the patient have a stroke diagnosis?: No VTE Prior VTE?: No VTE Risk Level:: Medical - moderate - high VTE Device Contraindication: Treatment Not Indicated VTE Drug Contraindication: N/A - Med Ordered
--- NOTE | 2021-12-19 14:28 | MHC.CM.PN ---
EMR REVIEWED, PT W/URETRAL CALCULI W/PLAN FOR STENT TO BE PLACED TODAY, CM MET W/PT WHO REMAINS IN ED, PT REPORTS SHE IS INDEP W/ALL CARE, HAS ASTHMA INHALERS AND A NEBULIZER ONLY DME AND NO HOME SERVICES, PT REPORTS PFIZER X2, ILIA COLEMAN IS PCP AND HER SON FRANCESCO [phone] IS HER HCP, COPY REQUESTED. [facility] HOME NO SERVICES W/FAMILY FOR TRANSPORT.
--- NOTE | 2021-12-19 16:08 | PC.NURSE ---
Report given to overflow RN. PT aware of plan.
--- NOTE | 2021-12-19 17:22 | MHC.SHP ---
Pre-Procedural Eval Section A Date of Service: 12/19/21 The patient is an INPATIENT: Yes Changes since office visit: No Cold of Flu in the past 2 weeks, No New Medical Problems, No Changes in Medication and No Patient answered all questions The History & Physical has been completed within 30 days and I have reviewed it.: Yes Section B Chief Complaint: Ureteral Calculus Details of Present Illness: Proximal left ureteric calculus Allergies: Allergies Allergy/AdvReac Type Severity Reaction Status Date / Time cephalexin [CEPHALEXIN] Allergy Severe SWELLING Verified 12/10/21 12:02 clavulanic acid Allergy Severe ANAPHYLAXIS Verified 12/10/21 12:02 [From AUGMENTIN] clindamycin [CLINDAMYCIN] Allergy Severe TONGUE Verified 12/10/21 12:02 SWELLING codeine Allergy Severe PASSED OUT Verified 12/10/21 12:02 influenza virus vaccine, Allergy Severe ANAPHYLAXIS Verified 12/10/21 12:02 specific [FLU VACCINE] perflutren [From Definity] Allergy Severe hives/anaph Verified 12/10/21 12:02 ylaxis seafood Allergy Severe anaphylaxis Verified 12/10/21 12:02 fluconazole Allergy Intermediate HIVES Verified 12/10/21 12:02 gentamicin [GENTAMICIN] Allergy Intermediate RASH Verified 12/10/21 12:02 oxycodone Allergy Intermediate SOB Verified 12/10/21 12:02 sulfamethoxazole Allergy Mild swelling Verified 12/10/21 12:02 [From Bactrim] trimethoprim [From Bactrim] Allergy Mild swelling Verified 12/10/21 12:02 Iodinated Contrast Media Allergy Hives Verified 12/10/21 12:02 [IV Contrast Dye] scopolamine AdvReac Severe Vomiting Verified 12/10/21 12:02 midazolam AdvReac Intermediate Vomiting Verified 12/10/21 12:02 Review of Systems Sugical H&P ROS: Negative: Constitution, Cardiovascular, Respiratory, Neurological, Psychiatric, Hem-Onc, Allergic/Immunologic, Gastrointestinal, Genitourinary, Musculoskeletal, Integumentary, Endocrine and Eyes/Ears/Nose/Throat Exam Surgical H&P Exam: Normal: HEENT, Normal: Heart, Normal: Lungs, Normal: Extremities, Normal: Abdomen, Normal: Skin and Normal: Neurological Plan Diagnosis/Plan: Unchanged (Cystoscopy, left retrograde, left stent placement) I have reviewed the history and physical and performed a pertinent physical examination on my patient. No changes have occurred unless specified.
--- NOTE | 2021-12-19 17:36 | PM.UROCN ---
History of Present Illness Consult details Consult date: 12/19/21 Narrative: Consulting complaint right flank pain Three day history of progressive right flank pain Associated nausea Pain to 8/10 with minimal relief Denies hematuria, dysuria, or chills Imaging shows proximal 9 mm ureteric stone with proximal hydro a ureteral nephrosis Has had many previous stone interventions Recommendation for right-sided ureteroscopy with laser lithotripsy and stent placement Review of Systems Constitutional: Constitutional: Reports as per HPI and Reports no additional constitutional complaints Cardiovascular: Cardiovascular: Reports as per HPI and Reports no additional cardiovascular complaints Respiratory: Respiratory: Reports as per HPI and Reports no additional respiratory complaints Gastrointestinal: Gastrointestinal: Reports as per HPI and Reports no additional gastrointestinal complaints Genitourinary: Genitourinary: Reports as per HPI Musculoskeletal: Musculoskeletal: Reports no additional musculoskeletal complaints and Reports as per HPI Neurologic: Reports system reviewed and no additional complaints, except as documented and Reports as per HPI PMF Past Medical History Medical History (Updated 12/19/21 @ 08:16 by Alexis Claros MD) Asthma Carotid artery disease Essential hypertension Fibromyalgia H/O ganglion cyst History of COVID-19 HTN (hypertension) Kidney stones Migraine Morbid obesity with BMI of 40.0-44.9, adult NAFLD (nonalcoholic fatty liver disease) NSVT (nonsustained ventricular tachycardia) PAC (premature atrial contraction) Post-operative nausea and vomiting PVC (premature ventricular contraction) Vertigo Family History Family History Father Skin cancer Cardiovascular disease Myocardial infarction Hypertension IBS (irritable bowel syndrome) Mother Hypertension Sister Myocardial infarction Hypertension Heartburn Paternal Uncle Colon cancer Paternal Grandmother Colon cancer Surgical History Surgical History H/O colonoscopy H/O esophagogastroduodenoscopy History of endometrial ablation History of partial hysterectomy Hx of cystoscopy Hx of lithotripsy Social History Social History Household Members: Children Housing: House Do you presently have visiting nurse or other home services: No Alcohol intake: current Alcohol intake frequency: does not drink Patient Tobacco Use Status: Never used Tobacco Second Hand Smoke Exposure: No Advance Directives: Yes Advance Directives on File: Yes Advance Directives Date on File: 08/21/21 service: No Current occupational status: employed Meds Allergies Allergy/AdvReac Type Severity Reaction Status Date / Time cephalexin [CEPHALEXIN] Allergy Severe SWELLING Verified 12/10/21 12:02 clavulanic acid Allergy Severe ANAPHYLAXIS Verified 12/10/21 12:02 [From AUGMENTIN] clindamycin [CLINDAMYCIN] Allergy Severe TONGUE Verified 12/10/21 12:02 SWELLING codeine Allergy Severe PASSED OUT Verified 12/10/21 12:02 influenza virus vaccine, Allergy Severe ANAPHYLAXIS Verified 12/10/21 12:02 specific [FLU VACCINE] perflutren [From Definity] Allergy Severe hives/anaph Verified 12/10/21 12:02 ylaxis seafood Allergy Severe anaphylaxis Verified 12/10/21 12:02 fluconazole Allergy Intermediate HIVES Verified 12/10/21 12:02 gentamicin [GENTAMICIN] Allergy Intermediate RASH Verified 12/10/21 12:02 oxycodone Allergy Intermediate SOB Verified 12/10/21 12:02 sulfamethoxazole Allergy Mild swelling Verified 12/10/21 12:02 [From Bactrim] trimethoprim [From Bactrim] Allergy Mild swelling Verified 12/10/21 12:02 Iodinated Contrast Media Allergy Hives Verified 12/10/21 12:02 [IV Contrast Dye] scopolamine AdvReac Severe Vomiting Verified 12/10/21 12:02 midazolam AdvReac Intermediate Vomiting Verified 12/10/21 12:02 Active Medications: Current Medications Acetaminophen (Acetaminophen 325 Mg Tablet) 650 mg PO Q6H PRN PRN Reason: Pain, Mild (Pain Scale 1-3) Last Admin: 12/19/21 03:27 Dose: 650 mg Heparin Sodium (Porcine) (Heparin Sodium,Porcine 5,000 Unit/Ml Vial) 5,000 unit SUBCUT Q8H [facility] Last Admin: 12/19/21 07:41 Dose: 5,000 unit Hydrocortisone (Hydrocortisone 2.5 % Rectal Cr 30 Gm Tube) 1 appl OR BEDTIME PRN PRN Reason: hemorrhoids Hydromorphone HCl (Hydromorphone Hcl 1 Mg/Ml Syringe) 0.5 mg IVPUSH Q4H PRN; Protocol PRN Reason: Pain, Severe (Pain Scale 7-10) Last Admin: 12/19/21 07:43 Dose: 0.5 mg Dextrose/Sodium Chloride (D51/2ns) 1,000 mls @ 100 mls/hr IVCONT .Q10H [facility] Last Admin: 12/19/21 10:00 Dose: 100 mls/hr Levofloxacin (Levaquin) 750 mg in 150 mls @ 100 mls/hr IV Q24H [facility] Melatonin (Melatonin 3 Mg Tablet) 6 mg PO BEDTIME PRN PRN Reason: Insomnia Ondansetron HCl (Ondansetron Hcl 4 Mg/2 Ml Vial) 4 mg IVPUSH Q8H PRN PRN Reason: Nausea and Vomiting Last Admin: 12/19/21 03:26 Dose: 4 mg Pyridoxine HCl (Pyridoxine Hcl (Vitamin B6) 50 Mg Tablet) 100 mg PO DAILY [facility] Last Admin: 12/19/21 10:41 Dose: Not Given Senna (Sennosides 8.6 Mg Tablet) 17.2 mg PO BEDTIME PRN PRN Reason: Constipation Sodium Chloride (0.9 % Sodium Chloride Flush 3 Ml Syringe) 3 ml IVFLUSH QSHIFT [facility] Last Admin: 12/19/21 15:57 Dose: Not Given Sumatriptan Succinate (Sumatriptan Succinate 25 Mg Tablet) 25 mg PO Q2H PRN PRN Reason: migraine headache Home Medications Medication Instructions Recorded Confirmed Last Taken Type losartan 25 mg tablet 25 mg PO DAILY 02/05/20 12/19/21 12/18/21 History meclizine 12.5 mg tablet 1 tab PO TID PRN Vertigo 06/18/20 12/19/21 Unknown History fluticasone 500 mcg-salmeterol 50 1 puff inhalation BID 08/20/21 12/19/21 12/18/21 History mcg/dose blistr powdr for inhalation (Maylinela Inhub) prednisone 20 mg tablet 20 mg PO DAILY 12/19/21 12/19/21 Unknown History Physical Exam Vital Signs: Vital Signs: Last Vital Signs Temp 98.1 F 12/19/21 07:27 Pulse 66 12/19/21 10:06 Resp 14 12/19/21 07:27 BP 116/78 12/19/21 10:06 Pulse Ox 99 12/19/21 10:06 O2 Del Method 12/19/21 10:06 BMI result Body Mass Index 38.4 Const: General: cooperative, healthy appearing, comfortable and no acute distress Orientation/consciousness: patient oriented x3 HEENT: Face and sinus: Yes normal facial exam Mouth: moist mucous membranes Neck: Neck: Yes normal visual inspection, Yes full ROM and Yes trachea midline Chest: Chest palpation & inspection: normal inspection of the chest Resp: Effort & Inspection: normal respiratory effort, able to speak in complete sentences and no respiratory distress GI: Inspection: Yes normal to inspection Back/Spine/Pelvis: Cervical Spine: normal cervical lordosis Thoracic/Lumbar Spine: thoracic and lumbar spine normal to inspection Skin: General skin exam: no rashes or lesions noted Neuro: General: patient oriented x3, tone normal and moves all extremities Extrem: General: Yes normal to inspection and Yes capillary refill normal Results Labs Result diagrams: 12/19/21 06:30 12/19/21 06:30 Labs: Abnormal lab results 12/19/21 12/19/21 12/19/21 Range/Units 02:17 06:05 06:30 WBC 11.3 H (4.8-10.8) X10*3/uL RBC 3.97 L (4.20-5.50) X10*6/uL Hgb 11.7 L (12.0-16.0) g/dl Hct 36.0 L (37.0-47.0) % Immature Gran % (Auto) 0.7 H (0.0-0.4) % Lymph % (Auto) 18.6 L (20-40) % [place] % (Auto) 12.0 H (2-11) % [place] # (Auto) 1.4 H (0.1-1.2) X10*3/uL Abs Immat Gran (auto) 0.08 H (0.00-0.03) X10*3/uL BUN (9-16) mg/dL Urine Color [place] A Urine Blood Trace H (Negative) Urine Nitrite Positive H (Negative) Ur Leukocyte Esterase Small (1+) H (Negative) Urine RBC 6-10 H (0-2) /HPF COVID-19 (JAKE) Positive A (Negative) 12/19/21 Range/Units 06:30 WBC (4.8-10.8) X10*3/uL RBC (4.20-5.50) X10*6/uL Hgb (12.0-16.0) g/dl Hct (37.0-47.0) % Immature Gran % (Auto) (0.0-0.4) % Lymph % (Auto) (20-40) % [place] % (Auto) (2-11) % [place] # (Auto) (0.1-1.2) X10*3/uL Abs Immat Gran (auto) (0.00-0.03) X10*3/uL BUN 20 H (9-16) mg/dL Urine Color Urine Blood (Negative) Urine Nitrite (Negative) Ur Leukocyte Esterase (Negative) Urine RBC (0-2) /HPF COVID-19 (JAKE) (Negative) Short CBC 12/19/21 Range/Units 06:30 WBC 11.3 H (4.8-10.8) X10*3/uL Hgb 11.7 L (12.0-16.0) g/dl Hct 36.0 L (37.0-47.0) % Plt Count 226 (160-400) X10*3/uL BMP 12/19/21 06:30 Sodium 140 Potassium 4.0 Chloride 108 Carbon Dioxide 23 BUN 20 H Creatinine 0.94 Calcium 8.5 D Urine 12/19/21 Range/Units 02:17 Urine Color [place] A Urine Appearance Clear Urine pH 5.0 (5.0-9.0) Ur Specific [place] 1.020 (1.005-1.025) Urine Protein Trace (Neg-Trace) mg/dL Urine Glucose (UA) Negative (Negative) mg/dL All other labs normal. Assessment and Plan (1) Kidney stones: Status: Acute Plan Ureteroscopy We discussed the nature of the decision and reasonable alternatives for performing ureteroscopy. Options such as medical therapy were discussed. Interventions include chemical dissolution, ESWL, ureteroscopy with laser lithotripsy and stent placement, PCNL. The relative uncertainties and benefits related to each alternate procedure were adequately discussed. General surgical risks including, but not limited to - pain, bleeding, infection, myocardial infarction, pulmonary embolus, deep vein thrombosis and cerebrovascular accident which may result in further hospitalization were discussed. Full disclosure of the procedure as well as all major risks, benefits and complications were discussed including but not limited to damage to the urethra, bladder and kidney infection, damage to the ureter, stent migration or malposition, scarring to the renal pelvis, remnant stone fragments, subsequent stone passage with need for secondary procedures. The overall secondary procedure rate is approximately 10-15%. The overall clearance rate is approximately 90-95%. Success of the procedure in the short-term does not necessarily guarantee that long-term success will be maintained. Suitable follow up will need to be maintained. The patient showed understanding of discussion and wishes to proceed with - cystoscopy, retrograde, ureteroscopy, possible lithotripsy/stone basketing and stent on the right side Procedures Date of Service Date of Service: 12/19/21
--- NOTE | 2021-12-19 17:39 | HO.ANESPROP2 ---
[facility] Active Problems Active Problems: All Active Problems (Updated 12/19/21 @ 08:16 by Alexis Claros MD) UTI (urinary tract infection) (Acute) Liver cyst (Acute) Rectal bleeding (Acute) Kidney stones (Acute) NAFLD (nonalcoholic fatty liver disease) (Acute) Morbid obesity with BMI of 40.0-44.9, adult (Acute) Essential hypertension (Acute) PAC (premature atrial contraction) (Acute) NSVT (nonsustained ventricular tachycardia) (Acute) Past Medical History Medical History (Updated 12/19/21 @ 08:16 by Alexis Claros MD) Asthma Carotid artery disease Essential hypertension Fibromyalgia H/O ganglion cyst History of COVID-19 HTN (hypertension) Kidney stones Migraine Morbid obesity with BMI of 40.0-44.9, adult NAFLD (nonalcoholic fatty liver disease) NSVT (nonsustained ventricular tachycardia) PAC (premature atrial contraction) Post-operative nausea and vomiting PVC (premature ventricular contraction) Vertigo Family History Family History Father Skin cancer Cardiovascular disease Myocardial infarction Hypertension IBS (irritable bowel syndrome) Mother Hypertension Sister Myocardial infarction Hypertension Heartburn Paternal Uncle Colon cancer Paternal Grandmother Colon cancer Family history of problems with anesthesia: No Surgical History Surgical History H/O colonoscopy H/O esophagogastroduodenoscopy History of endometrial ablation History of partial hysterectomy Hx of cystoscopy Hx of lithotripsy History of Problems with Anesthesia: No Social History Social History Household Members: Children Housing: House Do you presently have visiting nurse or other home services: No Alcohol intake: current Alcohol intake frequency: does not drink Patient Tobacco Use Status: Never used Tobacco Second Hand Smoke Exposure: No Advance Directives: Yes Advance Directives on File: Yes Advance Directives Date on File: 08/21/21 service: No Current occupational status: employed Meds Allergies Allergy/AdvReac Type Severity Reaction Status Date / Time cephalexin [CEPHALEXIN] Allergy Severe SWELLING Verified 12/10/21 12:02 clavulanic acid Allergy Severe ANAPHYLAXIS Verified 12/10/21 12:02 [From AUGMENTIN] clindamycin [CLINDAMYCIN] Allergy Severe TONGUE Verified 12/10/21 12:02 SWELLING codeine Allergy Severe PASSED OUT Verified 12/10/21 12:02 influenza virus vaccine, Allergy Severe ANAPHYLAXIS Verified 12/10/21 12:02 specific [FLU VACCINE] perflutren [From Definity] Allergy Severe hives/anaph Verified 12/10/21 12:02 ylaxis seafood Allergy Severe anaphylaxis Verified 12/10/21 12:02 fluconazole Allergy Intermediate HIVES Verified 12/10/21 12:02 gentamicin [GENTAMICIN] Allergy Intermediate RASH Verified 12/10/21 12:02 oxycodone Allergy Intermediate SOB Verified 12/10/21 12:02 sulfamethoxazole Allergy Mild swelling Verified 12/10/21 12:02 [From Bactrim] trimethoprim [From Bactrim] Allergy Mild swelling Verified 12/10/21 12:02 Iodinated Contrast Media Allergy Hives Verified 12/10/21 12:02 [IV Contrast Dye] scopolamine AdvReac Severe Vomiting Verified 12/10/21 12:02 midazolam AdvReac Intermediate Vomiting Verified 12/10/21 12:02 Active Medications: Current Medications Acetaminophen (Acetaminophen 325 Mg Tablet) 650 mg PO Q6H PRN PRN Reason: Pain, Mild (Pain Scale 1-3) Last Admin: 12/19/21 03:27 Dose: 650 mg Heparin Sodium (Porcine) (Heparin Sodium,Porcine 5,000 Unit/Ml Vial) 5,000 unit SUBCUT Q8H ELSA Last Admin: 12/19/21 07:41 Dose: 5,000 unit Hydrocortisone (Hydrocortisone 2.5 % Rectal Cr 30 Gm Tube) 1 appl [place] BEDTIME PRN PRN Reason: hemorrhoids Hydromorphone HCl (Hydromorphone Hcl 1 Mg/Ml Syringe) 0.5 mg IVPUSH Q4H PRN; Protocol PRN Reason: Pain, Severe (Pain Scale 7-10) Last Admin: 12/19/21 07:43 Dose: 0.5 mg Dextrose/Sodium Chloride (D51/2ns) 1,000 mls @ 100 mls/hr IVCONT .Q10H ELSA Last Admin: 12/19/21 10:00 Dose: 100 mls/hr Levofloxacin (Levaquin) 750 mg in 150 mls @ 100 mls/hr IV Q24H ELSA Melatonin (Melatonin 3 Mg Tablet) 6 mg PO BEDTIME PRN PRN Reason: Insomnia Ondansetron HCl (Ondansetron Hcl 4 Mg/2 Ml Vial) 4 mg IVPUSH Q8H PRN PRN Reason: Nausea and Vomiting Last Admin: 12/19/21 03:26 Dose: 4 mg Pyridoxine HCl (Pyridoxine Hcl (Vitamin B6) 50 Mg Tablet) 100 mg PO DAILY [facility] Last Admin: 12/19/21 10:41 Dose: Not Given Senna (Sennosides 8.6 Mg Tablet) 17.2 mg PO BEDTIME PRN PRN Reason: Constipation Sodium Chloride (0.9 % Sodium Chloride Flush 3 Ml Syringe) 3 ml IVFLUSH QSHIFT [facility] Last Admin: 12/19/21 15:57 Dose: Not Given Sumatriptan Succinate (Sumatriptan Succinate 25 Mg Tablet) 25 mg PO Q2H PRN PRN Reason: migraine headache Home Medications Medication Instructions Recorded Confirmed Last Taken Type losartan 25 mg tablet 25 mg PO DAILY 02/05/20 12/19/21 12/18/21 History meclizine 12.5 mg tablet 1 tab PO TID PRN Vertigo 06/18/20 12/19/21 Unknown History fluticasone 500 mcg-salmeterol 50 1 puff inhalation BID 08/20/21 12/19/21 12/18/21 History mcg/dose blistr powdr for inhalation (Darnell Molina) prednisone 20 mg tablet 20 mg PO DAILY 12/19/21 12/19/21 Unknown History Exam Exam Date and Time: December 19, 2021 1739 Height,Weight and Vital Signs: Height 5 ft 2 in Weight 95.254 kg Last Vital Signs Temp 98.1 F 12/19/21 07:27 Pulse 66 12/19/21 10:06 Resp 14 12/19/21 07:27 BP 116/78 12/19/21 10:06 Pulse Ox 99 12/19/21 10:06 O2 Del Method 12/19/21 10:06 Pertinent Lab Results Pertinent Lab Results: Laboratory Tests 12/18/21 12/18/21 12/18/21 15:39 15:39 22:39 WBC 11.3 H RBC 4.57 Hgb 13.5 Hct 41.1 MCV 89.9 MCH 29.5 MCHC 32.8 RDW 13.4 Plt Count 264 MPV 10.3 Immature Gran % (Auto) 0.5 H Neut % (Auto) 91.2 H Lymph % (Auto) 5.5 L [place] % (Auto) 2.5 Eos % (Auto) 0.0 Baso % (Auto) 0.3 Lymph # (Auto) 0.6 L [place] # (Auto) 0.3 Eos # (Auto) 0.0 Baso # (Auto) 0.0 Abs Immat Gran (auto) 0.06 H Absolute Neuts (auto) 10.3 H Absolute Nucleated RBC 0.000 Nucleated RBC % (auto) 0.0 Sodium 140 Potassium 4.5 Chloride 107 Carbon Dioxide 22 Anion Gap 16 BUN 19 H Creatinine 1.12 Estim Creat Clear Calc 66.0 Estimated GFR 52 Random Glucose 122 H Lactic Acid 0.8 Calcium 9.7 D Urine Color Urine Appearance Urine pH Ur Specific [place] Urine Protein Urine Glucose (UA) Urine Ketones Urine Blood Urine Nitrite Ur Leukocyte Esterase Urine RBC Urine WBC Ur Squamous Epith Cells Urine Bacteria Hyaline Casts COVID-19 (JAKE) COVID-19 Clin Com 12/19/21 12/19/21 12/19/21 02:17 06:05 06:30 WBC 11.3 H RBC 3.97 L Hgb 11.7 L Hct 36.0 L MCV 90.7 MCH 29.5 MCHC 32.5 RDW 13.6 Plt Count 226 MPV 10.2 Immature Gran % (Auto) 0.7 H Neut % (Auto) 68.1 Lymph % (Auto) 18.6 L [place] % (Auto) 12.0 H Eos % (Auto) 0.1 Baso % (Auto) 0.5 Lymph # (Auto) 2.1 [place] # (Auto) 1.4 H Eos # (Auto) 0.0 Baso # (Auto) 0.1 Abs Immat Gran (auto) 0.08 H Absolute Neuts (auto) 7.7 Absolute Nucleated RBC 0.000 Nucleated RBC % (auto) 0.0 Sodium Potassium Chloride Carbon Dioxide Anion Gap BUN Creatinine Estim Creat Clear Calc Estimated GFR Random Glucose Lactic Acid Calcium Urine Color [place] A Urine Appearance Clear Urine pH 5.0 Ur Specific [place] 1.020 Urine Protein Trace Urine Glucose (UA) Negative Urine Ketones Negative Urine Blood Trace H Urine Nitrite Positive H Ur Leukocyte Esterase Small (1+) H Urine RBC 6-10 H Urine WBC 0-5 Ur Squamous Epith Cells 0-2 Urine Bacteria None Seen Hyaline Casts 0-2 COVID-19 (JAKE) Positive A COVID-19 Clin Com See Note 12/19/21 06:30 WBC RBC Hgb Hct MCV MCH MCHC RDW Plt Count MPV Immature Gran % (Auto) Neut % (Auto) Lymph % (Auto) [place] % (Auto) Eos % (Auto) Baso % (Auto) Lymph # (Auto) [place] # (Auto) Eos # (Auto) Baso # (Auto) Abs Immat Gran (auto) Absolute Neuts (auto) Absolute Nucleated RBC Nucleated RBC % (auto) Sodium 140 Potassium 4.0 Chloride 108 Carbon Dioxide 23 Anion Gap 13 BUN 20 H Creatinine 0.94 Estim Creat Clear Calc 78.7 Estimated GFR > 60 Random Glucose 90 Lactic Acid Calcium 8.5 D Urine Color Urine Appearance Urine pH Ur Specific [place] Urine Protein Urine Glucose (UA) Urine Ketones Urine Blood Urine Nitrite Ur Leukocyte Esterase Urine RBC Urine WBC Ur Squamous Epith Cells Urine Bacteria Hyaline Casts COVID-19 (JAKE) COVID-19 Clin Com Airway Mallampati Class: II TM Dist: >3cm Loose/Missing/Broken Teeth: No Heart: RRR Lungs: CTA Assessment and Plan Assessment Anesthesia Assessment: Anesthesia Plan Discussed and Chart Reviewed Final Anesthetic Review Family History of Problems with Anesthesia: No History of Problems with Anesthesia: No ASA Class: III and Emergency Final Preanesthetic Review: No Changes in Pt Med Stat, Meds/Allgs Chart Reviewed, Consent Obtained/Reviewed and Anes Risks/Benef Reviewed Patient Risk: Intermediate Procedure Risk: Low Anesthetic Plan Anesthetic Plan: GA Disposition: Standard PACU
--- NOTE | 2021-12-19 19:15 | W.PM.OPN ---
Operative Note Operative Note Date of Service: 12/19/21 Narrative: PreOperative Diagnosis: Right proximal ureteric stone Post Operative Diagnosis: Right proximal ureteric stone Procedure: - cystoscopy, right retrograde - right dilatation of ureteric orifice under fluoroscopy - right ureteroscopy, laser lithotripsy Surgeon: Dr Sang Neal Anesthesia: General Indications for procedure: Right proximal ureteric stone 7 mm Procedure: After informed consent was verified patient was brought to the operating placed in supine position. Anesthesia was administered per protocol. Patient was placed in modified dorsal lithotomy position and prepped and draped in a sterile fashion. Safety pause time-out and side of surgery confirmed. Antibiotics confirmed. 22 Hebrew cystoscope was inserted per urethra. Bladder was normal in its entirety. Both ureteric orifices were in normal position. The right ureteric orifice was cannulated and a retrograde examination was performed. Filling defect right proximal ureter . A Sensor guidewire was placed up to the level of the renal pelvis under fluoroscopy. The rigid cystoscope was removed and the inner cannula of ureteric access sheath was used under fluoroscopy to dilate the ureteric orifice. The ureteric access sheath was placed and the inner cannula with access wire removed. The digital flexible ureteral scope was placed. The stone was encountered in the proximal portion of the ureter. Using a combination of stone breaking and dusting settings the stone was broken a small pieces and was removed through our suction access sheath. She has not tolerated stents in the past Decision was made not to leave a stent The bladder was emptied. The patient tolerated the procedure well and was extubated in the operating room, and transferred in stable condition to the recovery area. Pathology: Stones Drains: None
[2021-12-19] MEDS: Ketorolac Tromethamine 30 MG/ML VIAL IVPUSH (19:33)
[2021-12-19] MEDS: HYDROmorphone HCl 0.5 MG/0.5 ML SYRINGE IVPUSH (20:05)
[2021-12-20] VITALS (7 sets, daily range): BP systolic 115–148; BP diastolic 63–84; PULSE 58–86; RESP 12–20; TEMP 36.6–37.2; O2SAT 97–99; BMI 38.4
--- NOTE | 2021-12-20 | ECG_ITS ---
Test Reason : Ordered by physician Blood Pressure : / mmHG Vent. Rate : 076 BPM Atrial Rate : 076 BPM P-R Int : 112 ms QRS Dur : 074 ms QT Int : 386 ms P-R-T Axes : 028 -02 -11 degrees QTc Int : 434 ms Normal sinus rhythm Minimal voltage criteria for LVH, may be normal variant ( R in aVL ) Borderline ECG When compared with ECG of 18-JUN-2020 22:27, No significant change was found Referred By: Alexis Claros Electronically Signed By:DONTE DE LA ROSA
[2021-12-20] MEDS: Dextrose 5 % and 0.45 % NaCl 1,000 ML 100 ML IVCONT (00:23)
[2021-12-20] MEDS: levoFLOXacin/D5W 750 MG/150 ML PIGGYBACK 100 MG IV (00:27)
[2021-12-20] MEDS: 0.9 % Sodium Chloride Flush 3 ML SYRINGE IVFLUSH (00:28)
[2021-12-20] MEDS: HYDROmorphone HCl 1 MG/ML SYRINGE 0.5 MG IVPUSH ×3 (00:28→11:24)
[2021-12-20] MEDS: Heparin Sodium,Porcine 5,000 UNIT/ML VIAL 5000 UNIT SUBCUT ×2 (00:28→08:16)
[2021-12-20] MEDS: Pyridoxine HCl (Vitamin B6) 50 MG TABLET 100 MG PO (08:16)
[2021-12-20] MEDS: traMADoL HCL 50 MG TABLET PO (08:17)
--- NOTE | 2021-12-20 09:18 | P.PNIM_ITS ---
Subjective Subjective Date of Service: 12/20/21 Interval History: cc: flank pain interval history:unchanged Cardiovascular Cardiovascular: Reports no additional cardiovascular complaints Respiratory Respiratory: Reports no additional respiratory complaints Physical Exam Vital Signs: Vital Signs: Last Vital Signs Temp 98.3 F 12/20/21 08:00 Pulse 81 12/20/21 08:00 Resp 12 12/20/21 08:00 BP 115/63 12/20/21 08:00 Pulse Ox 99 12/20/21 08:00 O2 Del Method 12/20/21 08:00 BMI result Body Mass Index 38.4 General: AO X 3, no acute distress Resp: CTA bilateral, no accessory muscles used CVS: S1,S2,RRR GI: soft, non tender, non distended Neuro: motor grossly intact, alert Psych: appropriate affect, appropriate insight Objective Data Active Medications Acetaminophen (Acetaminophen 325 Mg Tablet) 650 mg PO Q6H PRN PRN Reason: Pain, Mild (Pain Scale 1-3) Last Admin: 12/19/21 03:27 Dose: 650 mg Documented By: PATY Fentanyl (Fentanyl Citrate/Pf 100 Mcg/2 Ml Vial) 25 mcg IVPUSH Q5M PRN; Protocol PRN Reason: Pain, Moderate (Pain Scale 4-6 Heparin Sodium (Porcine) (Heparin Sodium,Porcine 5,000 Unit/Ml Vial) 5,000 unit SUBCUT Q8H [facility]SA Last Admin: 12/20/21 08:16 Dose: 5,000 unit Documented By: RADHA Hydrocortisone (Hydrocortisone 2.5 % Rectal Cr 30 Gm Tube) 1 appl [place] BEDTIME PRN PRN Reason: hemorrhoids Hydromorphone HCl (Hydromorphone Hcl 1 Mg/Ml Syringe) 0.5 mg IVPUSH Q4H PRN; Protocol PRN Reason: Pain, Severe (Pain Scale 7-10) Last Admin: 12/20/21 06:30 Dose: 0.5 mg Documented By: ANGELA Hydromorphone HCl (Hydromorphone Hcl 0.5 Mg/0.5 Ml Syringe) 0.5 mg IVPUSH Q5M PRN; Protocol PRN Reason: Pain, Severe (Pain Scale 7-10) Last Admin: 12/19/21 20:05 Dose: 0.5 mg Documented By: LETY Dextrose/Sodium Chloride (D51/2ns) 1,000 mls @ 100 mls/hr IVCONT .Q10H [facility] Last Admin: 12/20/21 06:41 Dose: Not Given Documented By: ANGELA Non-Admin Reason: IV Running Levofloxacin (Levaquin) 750 mg in 150 mls @ 100 mls/hr IV Q24H [facility] Last Infusion: 12/20/21 03:59 Dose: 0 mls/hr Documented By: ANGELA Melatonin (Melatonin 3 Mg Tablet) 6 mg PO BEDTIME PRN PRN Reason: Insomnia Ondansetron HCl (Ondansetron Hcl 4 Mg/2 Ml Vial) 4 mg IVPUSH Q8H PRN PRN Reason: Nausea and Vomiting Last Admin: 12/19/21 03:26 Dose: 4 mg Documented By: PATY Phenazopyridine HCl (Phenazopyridine Hcl 100 Mg Tablet) 100 mg PO TIDWM PRN PRN Reason: mild pain Stop: 12/22/21 09:12 Pyridoxine HCl (Pyridoxine Hcl (Vitamin B6) 50 Mg Tablet) 100 mg PO DAILY [facility] Last Admin: 12/20/21 08:16 Dose: 100 mg Documented By: RADHA Senna (Sennosides 8.6 Mg Tablet) 17.2 mg PO BEDTIME PRN PRN Reason: Constipation Sodium Chloride (0.9 % Sodium Chloride Flush 3 Ml Syringe) 3 ml IVFLUSH QSHIFT [facility] Last Admin: 12/20/21 07:15 Dose: Not Given Documented By: RADHA Non-Admin Reason: See Note Sumatriptan Succinate (Sumatriptan Succinate 25 Mg Tablet) 25 mg PO Q2H PRN PRN Reason: migraine headache Tramadol HCl (Tramadol Hcl 50 Mg Tablet) 50 mg PO Q6H PRN PRN Reason: Pain, Moderate (Pain Scale 4-6 Last Admin: 12/20/21 08:17 Dose: 50 mg Documented By: RADHA Labs CBC & Chem 7: 12/19/21 06:30 12/19/21 06:30 Microbiology Microbiology Results: Microbiology 12/18/21 22:39 Blood Culture - Preliminary Blood - Venous No growth after 24 hours. 12/18/21 22:39 Blood Culture - Preliminary Blood - Venous No growth after 24 hours. Assessment and Plan (1) UTI (urinary tract infection): Status: Acute Plan 46F with pmh of HTN, HLD, NAFLD, moderate persistent asthma, obesity, migraines, nephrolithiasis presented with renal stone and right hydro Right obstructing ureteral stone complicated by mild to moderate hydronephrosis and UTI pod 1 right uretoscopy and laser lithotripsy, no stent due to intolerance in past still with pain Continue Levaquin, pain control, IV fluids, Flomax Moderate persistent asthma Stable, continue inhalers as needed History of palpitations Diltiazem DVT prophylaxis with lovenox Full code reason for continued hospitalization: still with significant pain Quality Stroke Does the patient have a stroke diagnosis?: No VTE Prior VTE?: No VTE Risk Level:: Medical - moderate - high VTE Device Contraindication: Treatment Not Indicated VTE Drug Contraindication: N/A - Med Ordered
[2021-12-20] MEDS: Phenazopyridine HCL 100 MG TABLET PO ×2 (09:55→18:15)
[2021-12-20 12:03] LABS: Troponin-I High Sensitivity < 3.5 ng/L (<3.5-17.0)
[2021-12-20] MEDS: dilTIAZem HCL CD 120 MG CAP.ER.DEG PO ×2 (12:18→21:48)
--- NOTE | 2021-12-20 12:41 | HO.POSTANES ---
Post Anesthesia Evaluation Post Anesthesia Evaluation Vital Signs: Vital Signs Temp Pulse Resp BP Pulse Ox O2 Del Method 12/20/21 12:23 98.9 F 71 16 134/76 98 Room Air 12/20/21 11:33 76 17 148/67 H 99 12/20/21 08:00 98.3 F 81 12 115/63 99 Room Air 12/20/21 04:28 97.8 F 86 16 122/79 97 Room Air Anesthesia: General LMA Mental Status: Awake Pain Control: Satisfactory Nausea/Vomiting: None Hydration: Adequate Anesthesia-Related Issues: No Anes. Related Issues
[2021-12-20] MEDS: Enoxaparin Sodium 40 MG/0.4 ML SYRINGE SUBCUT (17:13)
--- NOTE | 2021-12-20 18:01 | PC.NURSE ---
MD at bedside assessing pt this AM. Per MD pt can be discharged whenever pt feels comfortable today and pain is under control. PRN pain meds being administered w/ + effect. PT c/o left sided chest pain, sharp, 8/10 non radiating, stated she has not had it before. Md informed, ECG and vitals obtained and reported to MD. PT stated she hasnt taken her home dose of Dig since admission. Md informed was informed and med was administered as ordered. PT stated that she does not feel comfortable going home with the pain she is experiencing. Md was informed and ok'ed pt staying overnight. isolation precautions in place. safety and fall precautions maintianed. pt was able to ambulate >70ft
[2021-12-20] MEDS: HYDROmorphone HCl 2 MG TABLET 1 MG PO ×2 (18:37→23:38)
[2021-12-20] MEDS: levoFLOXacin 750 MG TABLET PO (23:35)
[2021-12-21 07:44] VITALS: BP 142/92; PULSE 70; RESP 12; TEMP 36.8; O2SAT 97
--- NOTE | 2021-12-21 08:55 | P.DS_ITS ---
DS: Providers Provider Date of Service: 12/21/21 Date of admission: 12/18/21 23:17 Primary care physician: Nonstaff Physician Consults: 12/18/21 23:19 Consult to Urology Routine Consulting Provider: Sang Neal Reason for consultation: ureteral calculus DS: Diagnosis Discharge Diagnosis (1) UTI (urinary tract infection): Status: Acute DS: Summary Hospital Course Hospital Course: from initial hpi: Chief Complaint:? right flank pain ?46-year-old female with a past medical history of hypertension, hyperlipidemia, nonalcoholic fatty liver, history of NSVT/PSC-on diltiazem, fibromyalgia, ca rotid artery disease, asthma, obesity, migraines, vertigo, history of kidney stones status post lithotripsy/cystoscopy -has been following with Urology; and is planned for laser lithotripsy on the right side in next couple weeks; has had left side lithotripsy done in September.? Presented to the hospital today with a chief complaint of right flank pain.? Patient mentioned that she went to the work today and dominant 5 pain in her right flank, radiating down to the groin, 10/10 in intensity; associated nausea and vomiting. Denies any fevers and chills.? Denies any urinary frequency or urgency.? Denies any hematuria.? Patient denies any chest pain or palpitations.? Denies any diarrhea.? Denies any cough or sputum production.? Review of all other systems is negative except mentioned above ER course: Per ER team patient noted to have 7 mm ureteral stone with hydronephrosis.? Notified Dr. Neal-recommended admission to the medicine service and pain control.? Patient also received antibiotics for UTI. hospital course: Patient was admitted for right flank pain due to right obstructing ureteral stone complicated by mild to moderate hydronephrosis and urinary tract infection. Patient underwent ureteroscopy with laser lithotripsy. No stent was placed due to past intolerance. Patient's pain was controlled with opiates, she was treated with IV Levaquin, Flomax my IV fluids. She will be discharged on course of ciprofloxacin. For moderate persistent asthma she will continue on inhalers. For history palpitations he will continue on diltiazem. For hypertension show continue losartan and diltiazem. Patient is feeling better and will be discharged home. Time Spent with Patient Time attestation: Total time spent providing and/or coordinating discharge services: Discharge coordination time: Greater than 30 minutes Quality: Safe Use of Opioids Does Pt have an Active Cancer Diagnosis on the Problem List?: No Quality: Stroke Does the patient have a stroke diagnosis?: No Physical Exam Vital Signs: Vital Signs: Last Vital Signs Temp 98.2 F 12/21/21 07:44 Pulse 70 12/21/21 07:44 Resp 12 12/21/21 07:44 BP 142/92 H 12/21/21 07:44 Pulse Ox 97 12/21/21 07:44 O2 Del Method 12/21/21 07:44 BMI result Body Mass Index 38.4 General: AO X 3, no acute distress Resp: CTA bilateral, no accessory muscles used CVS: S1,S2,RRR GI: soft, non tender, non distended Neuro: motor grossly intact, alert Psych: appropriate affect, appropriate insight DS: Data Data Completed and Pending Completed studies during hospitalization [Text1]: Procedures Fluoroscopy of Left Kidney, Ureter and Bladder (09/22/21) Fragmentation in Left Ureter, Via Natural or Artificial Opening Endoscopic (09/22/21) Pending studies at discharge: Pending at discharge 12/19/21 19:38 Surgical [PTH] Routine Labs on day of discharge: Laboratory Results - last 24 hr 12/20/21 11:31 Troponin I High Sens < 3.5 Preliminary micro results at discharge 12/18/21 22:39 Blood Culture - Preliminary Blood - Venous No growth after 48 hours. 12/18/21 22:39 Blood Culture - Preliminary Blood - Venous No growth after 48 hours. Discharge Plan Discharge Patient Disposition: Home, Self-Care Discharge Diagnosis: distal ureteric stones right side Referrals: Physician,Nonstaff [Primary Care Provider] - 1 Week Discharge Medications: New phenazopyridine [Pyridium] 100 mg tablet 100 mg PO TID PRN (Reason: Spasm) 4 Days Qty: 12 0RF tamsulosin 0.4 mg capsule 0.4 mg PO BEDTIME 14 Days Qty: 14 0RF ciprofloxacin HCl 500 mg tablet 500 mg PO BID 7 Days Qty: 14 0RF hydromorphone 2 mg Tablet 1 mg PO Q4H PRN (Reason: moderate pain) Qty: 4 0RF Rx Instructions: Partial Fill upon patient request. Continued diltiazem HCl 120 mg capsule,extended release 24hr 120 mg PO BID 90 Days Qty: 180 3RF meclizine 12.5 mg tablet 1 tab PO TID PRN (Reason: Vertigo) fluticasone propion-salmeterol [Wixela Inhub] 500-50 mcg/dose blister with device 1 puff inhalation BID losartan 25 mg tablet 25 mg PO DAILY Rx Instructions: PATIENT TAKES ONLY IF NEEDED ondansetron 4 mg tablet,disintegrating 4 mg PO Q8H 3 Days Qty: 9 0RF Discontinued prednisone 20 mg tablet 20 mg PO DAILY Rx Instructions: Pt started Taper wednesday12/17/21 at 40mg Discharge Orders: Discharge Order (Routine); Ordered 12/21/21 Ordered By: Alexis Claros Diet: Advance to usual diet Activity on Discharge: As tolerated Stand Alone Forms: Patient Portal Discharge page Care Plan Goals: recovery Health Concerns: uti, kidney stone Plan of Treatment: cipro Assessment: see above
[2021-12-21] MEDS: Pyridoxine HCl (Vitamin B6) 50 MG TABLET 100 MG PO (10:05)
[2021-12-21] MEDS: dilTIAZem HCL CD 120 MG CAP.ER.DEG PO (10:05)
[2021-12-25 11:32] LABS: Stone Source RIGHT URETERAL STONE
== END 2021-12-21 11:47 | disposition home or self-care (01) | DRG 463 ==
LOC: HO.ED 22:27 → HO.EDOVER 23:22 → HO.IMC 12-19 21:15
PROVIDERS: Urology; Admitting Provider Hospitalist; Emergency Provider Emergency Medicine; PCP Nurse Practitioner Gerontology; Visit Provider Internal Medicine
DX: N13.6 Pyonephrosis (principal); U07.1 COVID-19; K76.0 Fatty (change of) liver, not elsewhere classified; I10 Essential (primary) hypertension; G43.909 Migraine, unspecified, not intractable, without status migrainosus; I47.1 Supraventricular tachycardia; F41.9 Anxiety disorder, unspecified; J45.40 Moderate persistent asthma, uncomplicated; M79.7 Fibromyalgia; Z87.442 Personal history of urinary calculi; Z91.041 Radiographic dye allergy status; Z88.5 Allergy status to narcotic agent; Z88.7 Allergy status to serum and vaccine; Z79.51 Long term (current) use of inhaled steroids; Z88.1 Allergy status to other antibiotic agents; Z79.899 Other long term (current) drug therapy
CPT/HCPCS: 36415; 74176; 80048; 81001; 82365; 83605; 84484; 85025; 87040; 87086; 87635; 88300; 93005; 96365; 96375; 99284; 99285; C1758; C1769; J0131; J1100; J1170; J1650; J1885; J1956; J2405; J2550; J3010; Q9967

== ENCOUNTER 2021-12-30 12:36 | Outpatient (REF) | payer BC, SELFPAY ==
--- NOTE | ~2021-12-30 | US_ITS ---
EXAMINATION: US VENOUS ULTRASOUND WITH DOPPLER LOWER EXTREMITY, RIGHT CLINICAL INFORMATION: Right leg pain COMPARISON: Bilateral DVT study 06/13/2021 TECHNIQUE: Ultrasound of the deep veins is performed from the hip to the calf with compression sonography and color and pulse Doppler assessment. Spectral analysis with color-flow imaging is performed. FINDINGS: There is normal venous compression and respiratory variation and augmented flow. The visualized common femoral vein, superficial femoral vein, profunda femoral vein, popliteal vein, and the trifurcation region shows no evidence of deep venous thrombosis. There is no significant popliteal fossa cyst. The contralateral left common femoral vein appears normal. If the patient's symptoms persist, followup ultrasound in 5 days 7 days might be of value to exclude proximal propagation from a non-visualized calf vein. US/US venous duplex LE RT IMPRESSION: No DVT demonstrated in the right lower extremity.
== END 2021-12-30 12:37 | disposition home or self-care (01) ==
LOC: HO.US 12:36
PROVIDERS: Visit Provider Urology
DX: M79.604 Pain in right leg (principal)
CPT/HCPCS: 93971

== ENCOUNTER 2022-03-31 07:41 | Outpatient (REF) | payer BC, SELFPAY ==
--- NOTE | ~2022-03-31 | US_ITS ---
EXAMINATION: US RETROPERITONEAL LIMITED (RENAL ONLY) CLINICAL INFORMATION: Calculus of kidney. COMPARISON: CT abdomen and pelvis without contrast 12/18/2021. Ultrasound retroperitoneal limited (renal only) 09/03/2021 and 06/13/2021. X-ray abdomen KUB 08/20/2021 and 10/05/2018. TECHNIQUE: Real-time imaging of the kidneys. FINDINGS: RIGHT KIDNEY: 10.2 x 4.9 x 4.7 cm (SAG x AP x TRV). The kidney is normal in size, contour, and echogenicity. Renal cortical thickness is normal. A cluster of midpole echogenic foci seen measuring between 5 and 6 mm in size consistent with nonobstructing stones. No focal parenchymal lesions or hydronephrosis. Previously noted right-sided hydronephrosis on the 12/18/2021 CT scan secondary to an obstructing ureteral calculus has resolved. LEFT KIDNEY: 11.4 x 4.8 x 4.6 cm (SAG x AP x TRV). The kidney is normal in size, contour, and echogenicity. Renal cortical thickness is normal. The mid pole 4 mm nonobstructing calculus is present. No focal parenchymal lesions or hydronephrosis. US/US renal BI IMPRESSION: 1. Bilateral nonobstructing renal calculi. 2. Resolved right-sided hydronephrosis.
== END 2022-03-31 07:42 | disposition home or self-care (01) ==
LOC: HO.US 07:41
PROVIDERS: Visit Provider Urology
DX: N20.0 Calculus of kidney (principal)
CPT/HCPCS: 76775

== ENCOUNTER 2022-04-09 07:59 | Outpatient (REF) | payer BC, SELFPAY ==
--- NOTE | ~2022-04-09 | US_ITS ---
EXAMINATION: US ABDOMEN COMPLETE CLINICAL INFORMATION: Fatty change of liver, not elsewhere classified. COMPARISON: Renal ultrasound 03/31/2022. CT abdomen and pelvis 12/18/2021. TECHNIQUE: Real-time imaging of the abdominal viscera. FINDINGS: PANCREAS: Normal. ABDOMINAL AORTA: The proximal, mid, and distal segments are normal in caliber. INFERIOR VENA CAVA: Visualized portions are normal. LIVER: There is diffusely increased hepatic echogenicity and sound attenuation consistent with diffuse hepatic steatosis. 5 mm left 7 mm right simple hepatic cysts are present. No biliary ductal dilatation. GALLBLADDER: There are a few foci of ringdown artifact which may represent adenomyomatosis. No echogenic shadowing gallstones. No gallbladder wall thickening or pericholecystic fluid. COMMON BILE DUCT: Normal in caliber measuring 0.2 cm in diameter. RIGHT KIDNEY: 1.4 cm cyst in the right mid-lower kidney. 5 mm and 4 mm echogenic, shadowing calculi in the right mid kidney. No hydronephrosis. The kidney measures 11.8 cm in maximum dimension. LEFT KIDNEY: 1.2 cm cyst in the left mid kidney. No hydronephrosis or renal calculi. The kidney measures 11.3 cm in maximum dimension. SPLEEN: Normal. The spleen measures 9.1 cm in maximum dimension. FREE FLUID: None. US/US abdomen complete IMPRESSION: Sonographic appearance consistent with diffuse hepatic steatosis. Possible adenomyomatosis of the gallbladder. 5 mm and 4 mm nonobstructing right renal calculi.
== END 2022-04-09 08:00 | disposition home or self-care (01) ==
LOC: HO.US 07:59
PROVIDERS: Visit Provider Physician Assistant
DX: K76.0 Fatty (change of) liver, not elsewhere classified (principal); K76.89 Other specified diseases of liver
CPT/HCPCS: 76700

== ENCOUNTER → 2022-04-24 11:26 | Outpatient (BNVA) | payer BC, SELFPAY | PROVIDERS: PCP Nurse Practitioner Gerontology; Visit Provider Nurse Practitioner Family | DX: Z13.89 Encounter for screening for other disorder (principal) ==

== ENCOUNTER → 2022-04-27 09:35 | Outpatient (BNV) | payer BC, SELFPAY | PROVIDERS: PCP Nurse Practitioner Gerontology; Visit Provider Urology | DX: N20.0 Calculus of kidney (principal) | CPT/HCPCS: 52356; 74420; 99238 ==

== ENCOUNTER 2022-04-27 16:33 | Inpatient (IN) | payer BC, SELFPAY ==
[2022-04-27] VITALS (16 sets, daily range): BP systolic 125–163; BP diastolic 70–96; PULSE 66–84; RESP 14–18; TEMP 36.6–36.9; O2SAT 98–99; BMI 38.0
--- NOTE | ~2022-04-27 | FL_ITS ---
EXAMINATION: XR FLUOROSCOPY WITH IMAGES CLINICAL INFORMATION: Right renal calculi COMPARISON: Abdominal ultrasound 04/09/2022 TECHNIQUE: Fluoroscopy Supervised By: Dr. Ángel Domínguez. Fluoroscopy Time: 28 seconds. Cumulative Dose: 13.37 mGy. Images: 2. FINDINGS: There is contrast in the right renal collecting system. No hydronephrosis or hydroureter. Final image pelvis shows distal right ureteral stent. FL/FL guidance in OR IMPRESSION: Fluoroscopy for urologic procedures.
[2022-04-27 11:19] LABS: COVID-19 Test Negative (Negative); IDNOW Serial# 9DB6401D
[2022-04-27] MEDS: Ketorolac Tromethamine 15 MG/ML VIAL IVPUSH (11:27)
[2022-04-27] MEDS: levoFLOXacin 500 MG TABLET PO (11:28)
--- NOTE | 2022-04-27 12:41 | MHC.SHP ---
Pre-Procedural Eval Section A Date of Service: 04/27/22 The patient is an INPATIENT: No Changes since office visit: No Cold of Flu in the past 2 weeks, No New Medical Problems, No Changes in Medication and No Patient answered all questions The History & Physical has been completed within 30 days and I have reviewed it.: Yes Section B Chief Complaint: Calculus of kidney Details of Present Illness: right-sided retrograde, flexible ureteroscopy, laser, stent Allergies: Allergies Allergy/AdvReac Type Severity Reaction Status Date / Time cephalexin [CEPHALEXIN] Allergy Severe SWELLING Verified 04/26/22 13:02 clavulanic acid Allergy Severe ANAPHYLAXIS Verified 04/26/22 13:02 [From AUGMENTIN] clindamycin [CLINDAMYCIN] Allergy Severe TONGUE Verified 04/26/22 13:02 SWELLING codeine Allergy Severe PASSED OUT Verified 04/26/22 13:02 influenza virus vaccine, Allergy Severe ANAPHYLAXIS Verified 04/26/22 13:02 specific [FLU VACCINE] perflutren [From Definity] Allergy Severe hives/anaph Verified 04/26/22 13:02 ylaxis seafood Allergy Severe anaphylaxis Verified 04/26/22 13:02 fluconazole Allergy Intermediate HIVES Verified 04/26/22 13:02 gentamicin [GENTAMICIN] Allergy Intermediate RASH Verified 04/26/22 13:02 oxycodone Allergy Intermediate SOB Verified 04/26/22 13:02 sulfamethoxazole Allergy Mild swelling Verified 04/26/22 13:02 [From Bactrim] trimethoprim [From Bactrim] Allergy Mild swelling Verified 04/26/22 13:02 Iodinated Contrast Media Allergy Hives Verified 04/26/22 13:02 [IV Contrast Dye] scopolamine AdvReac Severe Vomiting Verified 04/26/22 13:02 midazolam AdvReac Intermediate Vomiting Verified 04/26/22 13:02 Review of Systems Sugical H&P ROS: Negative: Constitution, Cardiovascular, Respiratory, Neurological, Psychiatric, Hem-Onc, Allergic/Immunologic, Gastrointestinal, Genitourinary, Musculoskeletal, Integumentary, Endocrine and Eyes/Ears/Nose/Throat Exam Surgical H&P Exam: Normal: HEENT, Normal: Heart, Normal: Lungs, Normal: Extremities, Normal: Abdomen, Normal: Skin and Normal: Neurological Plan Diagnosis/Plan: Unchanged ( cystoscopy, right retrograde, right ureteroscopy laser lithotripsy) I have reviewed the history and physical and performed a pertinent physical examination on my patient. No changes have occurred unless specified. Time Spent With Patient Time: Total time managing care of this patient today ____ minutes.
--- NOTE | 2022-04-27 12:51 | HO.ANESPROP2 ---
HPI - Anesthesia Eval Consult details Narrative: cysto, retro, laser PMFSH Active Problems Active Problems: All Active Problems (Updated 04/26/22 @ 13:11 by MARK Knight) Flank pain (Acute) Right kidney stone (Acute) Bilateral mastodynia (Acute) Pain in right lower leg (Acute) UTI (urinary tract infection) (Acute) Liver cyst (Acute) Rectal bleeding (Acute) NAFLD (nonalcoholic fatty liver disease) (Acute) Morbid obesity with BMI of 40.0-44.9, adult (Acute) Essential hypertension (Acute) PAC (premature atrial contraction) (Acute) NSVT (nonsustained ventricular tachycardia) (Acute) Past Medical History Medical History Asthma Carotid artery disease Essential hypertension Fibromyalgia H/O ganglion cyst History of COVID-19 HTN (hypertension) Kidney stones Migraine Morbid obesity with BMI of 40.0-44.9, adult NAFLD (nonalcoholic fatty liver disease) NSVT (nonsustained ventricular tachycardia) PAC (premature atrial contraction) Post-operative nausea and vomiting PVC (premature ventricular contraction) Vertigo Patient : No Family History Family History Father Skin cancer Cardiovascular disease Myocardial infarction Hypertension IBS (irritable bowel syndrome) Mother Hypertension Sister Myocardial infarction Hypertension Heartburn Paternal Uncle Colon cancer Paternal Grandmother Colon cancer Family history of problems with anesthesia: Yes (PONV) Surgical History Surgical History H/O colonoscopy H/O esophagogastroduodenoscopy History of endometrial ablation History of partial hysterectomy Hx of cystoscopy Hx of lithotripsy History of Problems with Anesthesia: Yes (PONV) Social History Social History Household Members: Family Housing: House Do you presently have visiting nurse or other home services: No Alcohol intake: current Alcohol intake frequency: does not drink Patient Tobacco Use Status: Never used Tobacco Second Hand Smoke Exposure: No Use of substances other than those prescribed or required for medical reasons: No Are you DNR?: No Advance Directives: Yes Advance Directives on File: Yes Advance Directives Date on File: 08/21/21 service: No Current occupational status: employed Meds Allergies Allergy/AdvReac Type Severity Reaction Status Date / Time cephalexin [CEPHALEXIN] Allergy Severe SWELLING Verified 04/26/22 13:02 clavulanic acid Allergy Severe ANAPHYLAXIS Verified 04/26/22 13:02 [From AUGMENTIN] clindamycin [CLINDAMYCIN] Allergy Severe TONGUE Verified 04/26/22 13:02 SWELLING codeine Allergy Severe PASSED OUT Verified 04/26/22 13:02 influenza virus vaccine, Allergy Severe ANAPHYLAXIS Verified 04/26/22 13:02 specific [FLU VACCINE] perflutren [From Definity] Allergy Severe hives/anaph Verified 04/26/22 13:02 ylaxis seafood Allergy Severe anaphylaxis Verified 04/26/22 13:02 fluconazole Allergy Intermediate HIVES Verified 04/26/22 13:02 gentamicin [GENTAMICIN] Allergy Intermediate RASH Verified 04/26/22 13:02 oxycodone Allergy Intermediate SOB Verified 04/26/22 13:02 sulfamethoxazole Allergy Mild swelling Verified 04/26/22 13:02 [From Bactrim] trimethoprim [From Bactrim] Allergy Mild swelling Verified 04/26/22 13:02 Iodinated Contrast Media Allergy Hives Verified 04/26/22 13:02 [IV Contrast Dye] scopolamine AdvReac Severe Vomiting Verified 04/26/22 13:02 midazolam AdvReac Intermediate Vomiting Verified 04/26/22 13:02 Home Medications Medication Instructions Recorded Confirmed Last Taken Type meclizine 12.5 mg tablet 1 tab PO TID PRN Vertigo 06/18/20 04/27/22 Unknown History fluticasone 500 mcg-salmeterol 50 1 puff inhalation BID 08/20/21 04/27/22 12/18/21 History mcg/dose blistr powdr for inhalation (Wixela Inhub) losartan 50 mg tablet 50 mg PO DAILY 04/24/22 04/27/22 Unknown History Exam Exam Date and Time: April 27, 2022 1251 Height,Weight and Vital Signs: Height 5 ft 2 in Weight 94.347 kg Last Vital Signs Temp 98.3 F 04/27/22 10:54 Pulse 84 04/27/22 10:54 Resp 16 04/27/22 10:54 BP 128/83 04/27/22 10:54 Pulse Ox 99 04/27/22 10:54 O2 Del Method 01/23/23 10:54 Pertinent Lab Results Pertinent Lab Results: Laboratory Tests 04/27/22 10:38 COVID-19 ([facility]) Negative COVID-19 Clin Com See Note Airway Mallampati Class: II TM Dist: >3cm Neck ROM: Full Loose/Missing/Broken Teeth: No Heart: ok Lungs: ok Assessment and Plan Final Anesthetic Review Family History of Problems with Anesthesia: Yes (PONV) History of Problems with Anesthesia: Yes (PONV) NPO: Yes ASA Class: III Final Preanesthetic Review: No Changes in Pt Med Stat, Meds/Allgs Chart Reviewed, Consent Obtained/Reviewed and Anes Risks/Benef Reviewed Patient Risk: Intermediate Procedure Risk: Low Anesthetic Plan Anesthetic Plan: GA and Agree w/ Assess. and Plan Disposition: Standard PACU
[2022-04-27] MEDS: Acetaminophen 1,000 MG/100 ML PIGGYBACK 400 MG IV (13:15)
--- NOTE | 2022-04-27 13:42 | W.PM.OPN ---
Operative Note Operative Note Date of Service: 04/27/22 Narrative: PreOperative Diagnosis: right renal stones Post Operative Diagnosis: right renal stones Procedure: - cystoscopy, right retrograde - right dilatation of ureteric orifice under fluoroscopy - right ureteroscopy, laser lithotripsy, stone basketing - right stent placement Surgeon: Dr Sang Neal Anesthesia: General Indications for procedure: persistent right flank pain. 5 mm and 6 mm stones seen on ultrasound. Known Medullary sponge type picture. Procedure: After informed consent was verified patient was brought to the operating placed in supine position. Anesthesia was administered per protocol. Patient was placed in modified dorsal lithotomy position and prepped and draped in a sterile fashion. Safety pause time-out and side of surgery confirmed. Antibiotics confirmed. 22 [place] cystoscope was inserted per urethra. Bladder was normal in its entirety. Both ureteric orifices were in normal position. The Right ureteric orifice was cannulated and a retrograde examination was performed. no definitive filling defects seen. A Sensor guidewire was placed up to the level of the renal pelvis under fluoroscopy. The rigid cystoscope was removed and the inner cannula of ureteric access sheath was used under fluoroscopy to dilate the ureteric orifice. The ureteric access sheath was placed and the inner cannula with access wire removed. The digital flexible ureteral scope was placed. multi in appearance on multiple papilla consistent with prior stone passage. Small submucosal stones noted. Within the central calyx there were 2 stones 1 noted to be free floating in the other noted to be imbedded within the mucosa. Using a 0 tip basket both the stones were grasped and removed Using a 272 micron laser other areas of mucosal calcification were lasered throughout the kidney. At the completion of the stone procedure a Sensor wire was placed back into the renal pelvis. A 6 [place]ian by 24 cm double-J stent was placed into the renal pelvis and bladder under a combination of fluoroscopy and direct visualization. The symphisis pubis was used as a radiographic marker to release the stent and good coil was seen within the bladder confirming position The bladder was emptied. The patient tolerated the procedure well and was extubated in the operating room, and transferred in stable condition to the recovery area. Pathology: Stones Drains: stent is above
[2022-04-27] MEDS: Phenazopyridine HCL 100 MG TABLET PO (14:30)
[2022-04-27] MEDS: ondansetron HCL 4 MG/2 ML VIAL IVPUSH (15:02)
[2022-04-27] MEDS: HYDROmorphone HCl 2 MG TABLET PO ×2 (15:03→20:36)
[2022-04-27] MEDS: fentaNYL citrate/PF 100 MCG/2 ML VIAL 25 MCG IVPUSH (15:05)
[2022-04-27] MEDS: Acetaminophen 325 MG TABLET 650 MG PO (18:29)
[2022-04-28 03:50] VITALS: BP 125/76; PULSE 62; RESP 18; TEMP 36.1; O2SAT 98
[2022-04-28 07:10] VITALS: BP 117/72; PULSE 85; RESP 16; TEMP 36.1; O2SAT 99
--- NOTE | 2022-04-28 09:29 | MHC.CM.PN ---
EMR REVIEWED, CM MET W/PT AT BEDSIDE WHO REPORTS SHE LIVES W/HER 20YO SON, IS INDEP W/ALL CARE, DENIES USE OF DME OTHER THAN A NEBULIZER, PT HAS NO SERVICES, PT VERIFIES PCP ILIA COLEMAN, [facility] X[facility] AND REPORTS HER SON FRANCESCO [phone] IS HER HCP. ANTIC D/C HOME TODAY NO SERVICES W/FAMILY FOR TRANSPORT
--- NOTE | 2022-04-28 12:00 | HO.POSTANES ---
Post Anesthesia Evaluation Post Anesthesia Evaluation Vital Signs: Vital Signs Temp Pulse Resp BP Pulse Ox O2 Del Method 04/28/22 07:10 97 F 85 16 117/72 99 Room Air 04/28/22 03:50 96.9 F 62 18 125/76 98 Room Air Anesthesia: General Mental Status: Awake Pain Control: Satisfactory Nausea/Vomiting: None Hydration: Adequate Anesthesia-Related Issues: No Anes. Related Issues
[2022-05-04 14:58] LABS: Stone Source RIGHT RENAL STONE
--- NOTE | 2022-10-15 14:05 | PM.DS ---
DS: Providers Provider Date of Service: 04/27/22 Date of admission: 04/27/22 16:33 Primary care physician: Ynes Phipps NP DS: Diagnosis Discharge Diagnosis (1) Kidney stones: Status: Acute DS: Summary Hospital Course Hospital Course: Postprocedure nausea and vomiting remained overnight Time spent discussing smoking cessation with patient: 3 to 10 minutes Status at Discharge Functional status at discharge: independent ambulation Time Spent with Patient Time attestation: Total time managing care of this patient today ____ minutes. Discharge coordination time: Less than 30 minutes Quality: Safe Use of Opioids Does Pt have an Active Cancer Diagnosis on the Problem List?: No Quality: Stroke Does the patient have a stroke diagnosis?: No Physical Exam Vital Signs: Vital Signs: Last Vital Signs Temp 97 F 04/28/22 07:10 Pulse 85 04/28/22 07:10 Resp 16 04/28/22 07:10 BP 117/72 04/28/22 07:10 Pulse Ox 99 04/28/22 07:10 O2 Del Method Room Air 04/28/22 07:10 BMI result Body Mass Index 38.0 DS: Data Data Completed and Pending Completed studies during hospitalization [Text1]: Pending at discharge 04/27/22 13:43 Surgical [PTH] Routine Procedures Dilation of Right Ureter with Intraluminal Device, Via Natural or Artificial Opening Endoscopic (04/27/22) Extirpation of Matter from Right Ureter, Via Natural or Artificial Opening Endoscopic (04/27/22) Fluoroscopy of Left Kidney, Ureter and Bladder (09/22/21) Fluoroscopy of Right Kidney, Ureter and Bladder (04/27/22) Fragmentation in Left Ureter, Via Natural or Artificial Opening Endoscopic (09/22/21) Fragmentation in Right Ureter, Via Natural or Artificial Opening Endoscopic (12/18/21) Discharge Plan Discharge Anticipated Discharge Date/Time: 04/28/22 12:01 Patient Disposition: Home, Self-Care Discharge Diagnosis: nephrolithiasis Referrals: Ynes Wells NP [Primary Care Provider] - None Sang Neal MD [Physician] - 1 Week ( Cysto stent removal) Discharge Medications: New hydromorphone [Dilaudid] 2 mg tablet 2 mg PO Q4-6H PRN (Reason: pain (scale score 4-6)) 7 Days Qty: 14 0RF Rx Instructions: Partial Fill upon patient request. Continued diltiazem HCl 120 mg capsule,extended release 24hr 120 mg PO BID Qty: 180 3RF meclizine 12.5 mg tablet 1 tab PO TID PRN (Reason: Vertigo) tamsulosin 0.4 mg capsule 0.4 mg PO BEDTIME 14 Days Qty: 14 0RF ondansetron 4 mg tablet,disintegrating 4 mg PO Q8H 3 Days Qty: 9 0RF losartan 50 mg tablet 50 mg PO DAILY No Action albuterol sulfate 90 mcg/actuation HFA aerosol inhaler 2 puff inhalation Q4H PRN (Reason: wheezing) pyridoxine (vitamin B6) 50 mg tablet 100 mg PO DAILY 90 Days Qty: 180 1RF epinephrine 0.3 mg/0.3 mL auto-injector 0.3 ml IM ONCE PRN potassium citrate 10 mEq (1,080 mg) tablet extended release 20 meq PO DAILY phenazopyridine [Pyridium] 100 mg tablet 100 mg PO TID PRN (Reason: Spasm) 4 Days Qty: 12 0RF ibuprofen 800 mg tablet 800 mg PO Q8H PRN tramadol 50 mg tablet 50 mg PO DAILY PRN lorazepam 0.5 mg tablet 0.5 mg PO DAILY PRN Discharge Orders: Discharge Order (Routine); Ordered 04/28/22 Ordered By: Sang Neal Diet: Advance to usual diet Activity on Discharge: As tolerated Care Plan Goals: stones Health Concerns: stones Plan of Treatment: stones Assessment: stones Patient Instructions: Ureteroscopy (DC) Discharge Date/Time: 04/28/22 12:30
== END 2022-04-28 12:30 | disposition home or self-care (01) | DRG 446 ==
LOC: HO.S3 16:52
PROVIDERS: Admitting Provider Urology; PCP Nurse Practitioner Gerontology; Visit Provider Urology
PROC: 0TC68ZZ Extirpation of Matter from Right Ureter, Via Natural or Artificial Opening Endoscopic (ICD-10-PCS; CPT 52356; principal; 2022-04-27 12:00)
DX: N20.0 Calculus of kidney (principal); I25.10 Atherosclerotic heart disease of native coronary artery without angina pectoris; J45.909 Unspecified asthma, uncomplicated; Z20.822 Contact with and (suspected) exposure to COVID-19; Z91.013 Allergy to seafood; Z91.041 Radiographic dye allergy status; Z88.1 Allergy status to other antibiotic agents; Z88.2 Allergy status to sulfonamides; Z88.3 Allergy status to other anti-infective agents; Z88.5 Allergy status to narcotic agent; Z88.8 Allergy status to other drugs, medicaments and biological substances; Z79.51 Long term (current) use of inhaled steroids
CPT/HCPCS: 52356; 82365; 87635; 88300; C1758; C1769; C1894; J0131; J1885; J2405; J3010; Q9967

== ENCOUNTER → 2022-05-05 14:43 | Outpatient (BNVA) | payer BC, SELFPAY | PROVIDERS: PCP Nurse Practitioner Gerontology; Visit Provider Urology | DX: N20.0 Calculus of kidney (principal) | CPT/HCPCS: 52310 ==

== ENCOUNTER 2022-07-28 09:04 | Emergency (ER) | payer BC, SELFPAY ==
--- NOTE | 2022-07-28 | ECG_ITS ---
Test Reason : dizziness Blood Pressure : / mmHG Vent. Rate : 069 BPM Atrial Rate : 069 BPM P-R Int : 150 ms QRS Dur : 078 ms QT Int : 410 ms P-R-T Axes : 038 005 -02 degrees QTc Int : 439 ms Normal sinus rhythm Minimal voltage criteria for LVH, may be normal variant ( R in aVL ) Nonspecific ST abnormality Abnormal ECG When compared with ECG of 20-DEC-2021 11:26, No significant change was found Referred By: Generic ED Physician Electronically Signed By:Jonathan Chance
--- NOTE | ~2022-07-28 | XR_ITS ---
EXAMINATION: XR CHEST CLINICAL INFORMATION: Chest pain. COMPARISON: January 26, 2020. TECHNIQUE: 2 views of the chest were obtained. FINDINGS: No significant abnormality is noted involving the heart, lungs, mediastinum, bony thorax or soft tissues. XR/XR chest 2V IMPRESSION: Unremarkable examination.
[2022-07-28 09:10] VITALS: BP 132/84; BP 142/77; PULSE 72; PULSE 74; RESP 22; O2SAT 100; O2SAT 96; BMI 37.5
[2022-07-28 09:53] LABS: MANUAL DIFF FLAG NO
[2022-07-28 09:56] LABS: Basophils Absolute Auto 0.1 X10*3/uL (0.0-0.2); Basophils Percent Auto 1.2 % (0-2); Eosinophils Absolute Auto 0.8 X10*3/uL (0.0-0.4); Hematocrit 39.9 % (37.0-47.0); Hemoglobin 13.2 g/dl (12.0-16.0); Imm Gran Abs Auto 0.02 X10*3/uL (0.00-0.03); Imm Gran Pct Auto 0.3 % (0.0-0.4); Lymphocytes Absolute Auto 1.7 X10*3/uL (1.2-4.9); Mean Corpuscular HGB Conc 33.1 g/dl (31.0-35.0); Mean Corpuscular Hemoglobin 29.2 pg (27.0-33.0); Mean Corpuscular Volume 88.3 fL (80.0-98.0); Mean Platelet Volume 10.2 fL (9.4-12.3); Monocytes Absolute Auto 0.4 X10*3/uL (0.1-1.2); Neutrophils Absolute Auto 4.3 x10*3/uL (2.0-8.3); Neutrophils Percent Auto 58.5 % (45-73); Platelet Count 197 X10*3/uL (160-400); Red Blood Count 4.52 X10*6/uL (4.20-5.50); White Blood Count 7.4 X10*3/uL (4.8-10.8)
--- NOTE | 2022-07-28 10:19 | ED_ITS ---
HPI - Chest Pain General Chief Complaint: Chest Pain Stated Complaint: CP,DIZZY,NAUSEA PER EMS Time Seen by Provider: 07/28/22 09:21 Source: patient Mode of arrival: ambulatory History of Present Illness HPI narrative: 47-year-old female with known hypertensive history and has taken all of her medications states that last night while she was volunteering with friends she experienced very sharp chest pain that was not associated with dizziness or shortness of breath but patient states that she felt fatigued, took her home medications and then lay down to sleep. She states though that when she woke up this morning, took a shower that after the shower she began feeling mildly dizzy and nauseous with heat flushing as well as the sharp chest pain that at this time has somewhat resolved but patient states that she has residual chest pressure with radiation into the left neck and her left upper extremity. Patient states that she took her blood pressure at home and noted that it was very high and took her home prescription blood pressure medication early. Patient states that she feels lightheaded and did experience some cool, clammy, hot flushing at home that resolved with laying down with her legs elevated. Related Data Home Medications Medication Instructions Recorded Confirmed meclizine 12.5 mg tablet 1 tab PO TID PRN Vertigo 06/18/20 05/05/22 fluticasone 500 mcg-salmeterol 50 1 puff inhalation BID 08/20/21 05/05/22 mcg/dose blistr powdr for inhalation (Darnell Molina) losartan 50 mg tablet 50 mg PO DAILY 04/24/22 05/05/22 Previous Rx's Medication Instructions Recorded ondansetron 4 mg disintegrating 4 mg PO Q8H 3 days #9 tabs 08/12/21 tablet tamsulosin 0.4 mg capsule 0.4 mg PO BEDTIME 14 days #14 caps 12/19/21 diltiazem HCl 120 mg 120 mg PO BID #180 caps 02/09/22 capsule,extended release 24 hr phenazopyridine 100 mg tablet 100 mg PO TID PRN Spasm 4 days #12 04/26/22 (Pyridium) tabs hydromorphone 2 mg tablet 2 mg PO Q4-6H PRN pain (scale 04/27/22 (Dilaudid) score 4-6) 7 days #14 tabs potassium citrate 10 mEq (1,080 20 meq PO BID 90 days #360 tabs 05/05/22 mg) tablet,extended release pyridoxine (vitamin B6) 50 mg 100 mg PO DAILY 90 days #180 tabs 05/05/22 tablet meclizine 12.5 mg tablet 12.5 mg PO DAILY PRN dizziness #5 07/28/22 tabs Allergies Allergy/AdvReac Type Severity Reaction Status Date / Time cephalexin [CEPHALEXIN] Allergy Severe SWELLING Verified 07/28/22 09:17 clavulanic acid Allergy Severe ANAPHYLAXIS Verified 07/28/22 09:17 [From AUGMENTIN] clindamycin [CLINDAMYCIN] Allergy Severe TONGUE Verified 07/28/22 09:17 SWELLING codeine Allergy Severe PASSED OUT Verified 07/28/22 09:17 influenza virus vaccine, Allergy Severe ANAPHYLAXIS Verified 07/28/22 09:17 specific [FLU VACCINE] perflutren [From Definity] Allergy Severe hives/anaph Verified 07/28/22 09:17 ylaxis seafood Allergy Severe Anaphylaxis Verified 07/28/22 09:17 fluconazole Allergy Intermediate HIVES Verified 07/28/22 09:17 gentamicin [GENTAMICIN] Allergy Intermediate RASH Verified 07/28/22 09:17 oxycodone Allergy Intermediate SOB Verified 07/28/22 09:17 sulfamethoxazole Allergy Mild swelling Verified 07/28/22 09:17 [From Bactrim] trimethoprim [From Bactrim] Allergy Mild swelling Verified 07/28/22 09:17 Iodinated Contrast Media Allergy Hives Verified 07/28/22 09:17 [IV Contrast Dye] scopolamine AdvReac Severe Vomiting Verified 07/28/22 09:17 midazolam AdvReac Intermediate Vomiting Verified 07/28/22 09:17 Review of Systems Review of Systems: Pertinent positives and negatives as stated in HPI [facility] Past Medical History Source: nursing notes reviewed Medical History Asthma Carotid artery disease Essential hypertension Fibromyalgia H/O ganglion cyst History of COVID-19 HTN (hypertension) Kidney stones Migraine Morbid obesity with BMI of 40.0-44.9, adult NAFLD (nonalcoholic fatty liver disease) NSVT (nonsustained ventricular tachycardia) PAC (premature atrial contraction) Post-operative nausea and vomiting PVC (premature ventricular contraction) Vertigo Surgical History H/O colonoscopy H/O esophagogastroduodenoscopy History of endometrial ablation History of partial hysterectomy Hx of cystoscopy Hx of lithotripsy Family History Family History Father Skin cancer Cardiovascular disease Myocardial infarction Hypertension IBS (irritable bowel syndrome) Mother Hypertension Sister Myocardial infarction Hypertension Heartburn Paternal Uncle Colon cancer Paternal Grandmother Colon cancer Social History Social History Household Members: Children Housing: Apartment Do you presently have visiting nurse or other home services: No Alcohol intake: current Alcohol intake frequency: does not drink Patient Tobacco Use Status: Never used Tobacco Second Hand Smoke Exposure: No Advance Directives: Yes Advance Directives on File: Yes Advance Directives Date on File: 08/21/21 service: No Current occupational status: employed Physical Exam Vital Signs: Vital Signs: Last Vital Signs Pulse 74 07/28/22 13:21 Resp 17 07/28/22 13:21 BP 123/78 07/28/22 13:21 Pulse Ox 97 07/28/22 13:21 O2 Del Method Room Air 07/28/22 13:21 BMI result Body Mass Index 37.5 VITAL SIGNS: Reviewed. GENERAL: Well developed, well nourished, in no acute distress. HEAD: Normocephalic/atraumatic EYES: PERRLA, EOMI EARS: Ext canals without abnormality NOSE: Nares patent bilateral OROPHARYNX: no oral lesions noted, posterior pharynx clear NECK: Supple, no adenopathy LUNGS: Normal breath sounds. No adventitious sounds or accessory muscle use. SpO2<96> CARDIOVASCULAR: Regular rate and rhythm without noted murmurs ABDOMEN: Soft, non-tender, non-distended with bowel sounds. MUSCULOSKELETAL: No tenderness, deformities, or effusions noted on gross inspection. EXTREMITIES: No cyanosis, clubbing or edema. SKIN: Inspection of the skin reveals no rashes NEUROLOGIC: Alert and oriented x 4. Strength and sensation to light touch were grossly intact x 4. Medications Administered Discontinued Medications Generic Name Dose Route Start Last Admin Trade Name Freq PRN Reason Stop Dose Admin Meclizine HCl 12.5 mg 07/28/22 13:29 07/28/22 13:47 Meclizine Hcl 12.5 Mg Tablet PO 07/28/22 13:30 12.5 mg ONCE ONE Administration Medical Decision Making Medical Decision Making [facility] Narrative: 47-year-old female with history and clinical presentation concerning for sharp chest pain with dizziness and elevated blood pressure. Although patient has symmetrical pulses will have low threshold for imaging studies. PERC negative. 1155: Orthostatics are negative. 1350: I reviewed all investigations as well as re-evaluated patient after meclizine and all symptoms have completely resolved and patient states that she is feeling much better. My interpretation is that patient was suffering from combination of anxiety as well as acute on chronic exacerbation of her underlying vertigo. Differential Diagnosis Please see the discussion Lab Data Please see the discussion above 07/28/22 09:51 07/28/22 09:51 Labs: Lab Results 07/28/22 07/28/22 07/28/22 Range/Units 09:51 09:51 12:05 WBC 7.4 (4.8-10.8) X10*3/uL RBC 4.52 (4.20-5.50) X10*6/uL Hgb 13.2 (12.0-16.0) g/dl Hct 39.9 (37.0-47.0) % MCV 88.3 (80.0-98.0) fL MCH 29.2 (27.0-33.0) pg MCHC 33.1 (31.0-35.0) g/dl RDW 13.0 (11.0-16.0) % Plt Count 197 (160-400) X10*3/uL MPV 10.2 (9.4-12.3) fL Immature Gran % (Auto) 0.3 (0.0-0.4) % Neut % (Auto) 58.5 (45-73) % Lymph % (Auto) 23.0 (20-40) % [place] % (Auto) 6.0 (2-11) % Eos % (Auto) 11.0 H (0-4) % Baso % (Auto) 1.2 (0-2) % Lymph # (Auto) 1.7 (1.2-4.9) X10*3/uL [place] # (Auto) 0.4 (0.1-1.2) X10*3/uL Eos # (Auto) 0.8 H (0.0-0.4) X10*3/uL Baso # (Auto) 0.1 (0.0-0.2) X10*3/uL Abs Immat Gran (auto) 0.02 (0.00-0.03) X10*3/uL Absolute Neuts (auto) 4.3 (2.0-8.3) x10*3/uL Absolute Nucleated RBC 0.000 (0.0-0.012) X10*3/uL Nucleated RBC % (auto) 0.0 (0.0-0.2) /100WBC Sodium 144 (135-145) mmol/L Potassium 3.9 (3.3-5.1) mmol/L Chloride 111 H (96-108) mmol/L Carbon Dioxide 24 (22-29) mmol/L Anion Gap 13 (12-20) BUN 18 H (9-16) mg/dL Creatinine 0.90 (0.5-1.4) mg/dL Estim Creat Clear Calc 80.2 Estimated GFR > 60 Random Glucose 101 (60-115) mg/dL Calcium 8.7 (8.4-10.2) mg/dL Total Bilirubin 0.6 (0.0-1.0) mg/dL AST 19 (5-31) U/L ALT 23 (0-31) U/L Alkaline Phosphatase 108 (39-117) U/L Troponin I High Sens < 2.7 (<3.5-17.0) ng/L Total Protein 6.5 (6.5-8.0) g/dL Albumin 4.0 (3.5-5.0) g/dL Independent Interpretation I performed an independent interpretation of an: EKG Interpretation: Normal sinus rhythm, HR-69, no STEMI, MA/QRS/QTC is within normal limits. Radiology Impression Radiologist Impression: My interpretation is in agreement with radiology's impression of the imaging studies. External Record Review External record reviewed: Outpatient record and Prior outpatient labs Chronic Conditions Patient?s care impacted by: Hypertension Discharge Plan Discharge Clinical Impression: Atypical chest pain, Vertigo Patient Disposition: Home, Self-Care Instructions: Chest Pain (ED), Vertigo (ED) Additional Instructions: 1. Resume all home medications as prescribed. 2. Please follow-up with your primary care provider next 1-2 days for re-e valuation further outpatient management. Return to the ER for any worsening symptoms. Prescriptions: New meclizine 12.5 mg tablet 12.5 mg PO DAILY PRN (Reason: dizziness) Qty: 5 0RF No Action diltiazem HCl 120 mg capsule,extended release 24hr 120 mg PO BID Qty: 180 3RF meclizine 12.5 mg tablet 1 tab PO TID PRN (Reason: Vertigo) fluticasone propion-salmeterol [Wixela Inhub] 500-50 mcg/dose blister with device 1 puff inhalation BID tamsulosin 0.4 mg capsule 0.4 mg PO BEDTIME 14 Days Qty: 14 0RF hydromorphone [Dilaudid] 2 mg tablet 2 mg PO Q4-6H PRN (Reason: pain (scale score 4-6)) 7 Days Qty: 14 0RF Rx Instructions: Partial Fill upon patient request. ondansetron 4 mg tablet,disintegrating 4 mg PO Q8H 3 Days Qty: 9 0RF losartan 50 mg tablet 50 mg PO DAILY phenazopyridine [Pyridium] 100 mg tablet 100 mg PO TID PRN (Reason: Spasm) 4 Days Qty: 12 0RF potassium citrate 10 mEq (1,080 mg) tablet extended release 20 meq PO BID 90 Days Qty: 360 1RF pyridoxine (vitamin B6) 50 mg tablet 100 mg PO DAILY 90 Days Qty: 180 1RF Referrals: Jane Dao NP [Primary Care Provider] -
[2022-07-28 11:44] VITALS: BP 119/73; PULSE 70
[2022-07-28 11:45] LABS: Alanine Aminotransferase 23 U/L (0-31); Alkaline Phosphatase 108 U/L (39-117); Anion Gap 13 (12-20); Aspartate Amino Transferase 19 U/L (5-31); Bilirubin Total 0.6 mg/dL (0.0-1.0); Blood Urea Nitrogen 18 mg/dL (9-16); Calcium 8.7 mg/dL (8.4-10.2); Carbon Dioxide 24 mmol/L (22-29); Chloride 111 mmol/L (96-108); Creatinine Clr Calc Pharmacy 80.2; Estimated Glomerular Filt Rate > 60; Glucose Random 101 mg/dL (60-115); Potassium 3.9 mmol/L (3.3-5.1); Sodium 144 mmol/L (135-145); Total Protein 6.5 g/dL (6.5-8.0)
[2022-07-28 11:51] VITALS: BP 124/79; PULSE 73
[2022-07-28 11:52] VITALS: BP 129/87; PULSE 78
[2022-07-28 12:39] LABS: Troponin-I High Sensitivity < 2.7 ng/L (<3.5-17.0)
[2022-07-28 13:21] VITALS: BP 123/78; PULSE 74; RESP 17; O2SAT 97
[2022-07-28] MEDS: Meclizine HCl 12.5 MG TABLET PO (13:47)
[2022-07-28 13:56] LABS: Appearance Urine Clear; Color Urine Yellow; Glucose Urine UA Negative (Negative); Leukocyte Esterase Urine Negative (Negative); Nitrite Urine Negative (Negative); PH 7.5 (5.0-9.0); Specific Gravity - Urine 1.015 (1.005-1.025); Urine Blood Negative (Negative); Urine Ketones Negative (Negative); Urine Protein Negative (Neg-Trace)
== END 2022-07-28 14:10 | disposition home or self-care (01) ==
PROVIDERS: Emergency Provider Student in an Organized Health Care Education/Training Program; PCP Nurse Practitioner Family
DX: R07.89 Other chest pain (principal); R42 Dizziness and giddiness; Z79.899 Other long term (current) drug therapy
CPT/HCPCS: 36415; 71046; 80053; 81003; 84484; 85025; 93005; 99284

== ENCOUNTER 2022-08-12 14:24 | Outpatient (REF) | payer BC, SELFPAY ==
--- NOTE | ~2022-08-12 | US_ITS ---
EXAMINATION: US RETROPERITONEAL LIMITED (RENAL ONLY) CLINICAL INFORMATION: Calculus of kidney. COMPARISON: Ultrasound abdomen complete 04/09/2022. Ultrasound retroperitoneal limited (renal only) 03/31/2022. CT abdomen and pelvis without contrast 12/18/2021. X-ray abdomen KUB 08/20/2021 and 10/05/2018. TECHNIQUE: Real-time imaging of the kidneys. FINDINGS: RIGHT KIDNEY: 12.4 x 4.3 x 5.1 cm (SAG x AP x TRV). The kidney is normal in size, contour, and echogenicity. Renal cortical thickness is normal. No hydronephrosis. There is an anechoic cyst with calcification midpole measuring 1.0 x 1.3 x 1.2 cm. There are small echogenic stones measuring 0.3 x 0.2 x 0.3 midpole, 0.4 x 0.4 x 0.4 cm lower pole and 0.7 x 0.2 x 0.3 cm upper pole. No caliectasis seen. LEFT KIDNEY: 11.0 x 4.7 x 6.2 cm (SAG x AP x TRV). The kidney is normal in size, contour, and echogenicity. Renal cortical thickness is normal. No calculi or focal parenchymal lesions. No hydronephrosis. US/US renal BI IMPRESSION: 1. Complex cyst and 3 nonobstructive stones, right kidney. 2. The left kidney is unremarkable.
== END 2022-08-12 14:25 | disposition home or self-care (01) ==
LOC: HO.HMGCX 14:24
PROVIDERS: Visit Provider Urology
DX: N20.0 Calculus of kidney (principal)
CPT/HCPCS: 76775

== ENCOUNTER → 2022-08-19 15:11 | Outpatient (BNVA) | payer BC, SELFPAY | PROVIDERS: PCP Nurse Practitioner Family; Visit Provider Nurse Practitioner Family ==

== ENCOUNTER 2022-09-02 16:27 | Outpatient (REF) | payer BC, SELFPAY ==
--- NOTE | ~2022-09-02 | US_ITS ---
EXAMINATION: US PELVIS AND TRANSVAGINAL CLINICAL INFORMATION: Family history of malignant ovarian neoplasms. COMPARISON: None available. TECHNIQUE: Ultrasound of the pelvis is performed using both transabdominal and transvaginal transducers along with Doppler. Transvaginal imaging is performed due to inadequate visualization transabdominally. FINDINGS: UTERUS: Patient is status post hysterectomy. ADNEXA: Right ovary measures 2.4 x 1.9 x 1.8 cm for a volume of 4.3 mL. Left ovary could not be seen. There is no free fluid. US/US pelvic and transvaginal IMPRESSION: Normal-appearing right ovary. Left ovary could not be seen.
== END 2022-09-02 16:28 | disposition home or self-care (01) ==
LOC: HO.US 16:27
PROVIDERS: PCP Nurse Practitioner Family; Visit Provider Nurse Practitioner Family
DX: Z90.710 Acquired absence of both cervix and uterus (principal); Z80.41 Family history of malignant neoplasm of ovary
CPT/HCPCS: 76830; 76856

== ENCOUNTER → 2022-09-15 08:27 | Outpatient (BNVA) | payer BC, SELFPAY | PROVIDERS: PCP Nurse Practitioner Family; Visit Provider Nurse Practitioner Family ==

== ENCOUNTER 2022-10-02 08:00 | Outpatient (REF) | payer BC, SELFPAY ==
--- NOTE | ~2022-10-02 | MM_ITS ---
EXAMINATION: BONE DENSITOMETRY CLINICAL INDICATION: Menopause. COMPARISON: None (current study represents initial baseline exam). TECHNIQUE: Using a [employer] ([employer]: [place]) DXA System (software version: 13.1) manufactured by [employer], dual-energy x-ray absorptiometry was performed of the lumbar spine and left hip. The images are of good technical quality. Summary results are attached. FINDINGS: LEFT FEMUR, NECK: BMD 0.996 g/cm2, Z-score -0.1, T-score -0.3, normal. LEFT FEMUR, TOTAL: BMD 1.157 g/cm2, Z-score 1.0, T-score 1.2, normal. AP SPINE L1-L4: BMD 1.343 g/cm2, Z-score 0.9, T-score 1.4, normal. IDENTIFIED RISK FACTORS: Early menopause, hysterectomy, secondary osteoporosis, glucocorticoids (chronic). HISTORY OF FRACTURE: None listed. MEDICATIONS: None listed. MM/XR DEXA axial skeleton IMPRESSION: 1. DIAGNOSIS: Normal bone density based on the lowest T-score value of -0.3 in the femoral neck applying World Health Organization criteria. 2. 10-YEAR FRACTURE RISK PREDICTION, FRAX: According to the guidelines, FRAX calculation should only be performed on patients in the osteopenia bone density category. Therefore, FRAX was not performed on this patient. 3. Treatment Recommendations: NOF guidelines recommend consideration for treatment in postmenopausal women and men age 50 and older presenting with the following: -A hip or vertebral (clinical or morphometric) fracture. -T-score less than or equal to -2.5 at the femoral neck or spine after appropriate evaluation to exclude secondary causes. -Low bone mass at the hip or spine and a 10-year fracture probability by FRAX of greater than or equal to 3% for hip fracture or greater than or equal to 20% for major osteoporotic fracture based on the [place] adapted WHO algorithm. 4. Other Recommendations: All treatment decisions require clinical judgment and consideration of individual patient factors, including patient preferences, comorbidities, previous drug use, risk factors not captured in the FRAX model (e.g. frailty, falls, vitamin D deficiency, increased bone turnover, interval significant decline in bone density) and possible under or overestimation of fracture risk by FRAX. FUTURE SCAN RECOMMENDATION: People with diagnosed cases of osteoporosis or at high risk for fracture should have regular bone mineral density tests. For patients eligible for Medicare, routine testing is allowed once every 2 years. The testing frequency can be increased to one year for patients who have rapidly progressing disease, those who are receiving or discontinuing medical therapy to restore bone mass, or have additional risk factors.
== END 2022-10-02 08:01 | disposition home or self-care (01) ==
LOC: HO.MAMMO 08:00
PROVIDERS: PCP Nurse Practitioner Family; Visit Provider Nurse Practitioner Family
DX: Z13.820 Encounter for screening for osteoporosis (principal); Z78.0 Asymptomatic menopausal state
CPT/HCPCS: 77080

== ENCOUNTER 2022-10-05 08:40 | Day surgery (SDC) | payer BC, SELFPAY ==
[2022-08-06 09:39] VITALS: BMI 38.5
--- NOTE | 2022-10-02 08:55 | HO.ANESPROP2 ---
Documented by User: Ling Ruelas NP 10/02/22 09:10 HPI - Anesthesia Eval Consult details Narrative: 47yo F for Colonoscopy *Multiple Allergies* Yearly cardiology office visits - last 11/2021 - stable s/p cysto 04/2022 with GA-LMA 4 s/p hysterectomy PMFSH Active Problems Active Problems: All Active Problems (Updated 08/19/22 @ 20:[address] [facility]) Complex renal cyst (Acute) Kidney stones (Acute) Rectal bleeding (Acute) Liver cyst (Acute) UTI (urinary tract infection) (Acute) Pain in right lower leg (Acute) Bilateral mastodynia (Acute) Right kidney stone (Acute) Flank pain (Acute) NAFLD (nonalcoholic fatty liver disease) (Acute) Morbid obesity with BMI of 40.0-44.9, adult (Acute) Essential hypertension (Acute) PAC (premature atrial contraction) (Acute) NSVT (nonsustained ventricular tachycardia) (Acute) Past Medical History Medical History Asthma Carotid artery disease Essential hypertension Fibromyalgia H/O ganglion cyst History of COVID-19 HTN (hypertension) Kidney stones Migraine Morbid obesity with BMI of 40.0-44.9, adult NAFLD (nonalcoholic fatty liver disease) NSVT (nonsustained ventricular tachycardia) PAC (premature atrial contraction) Post-operative nausea and vomiting PVC (premature ventricular contraction) Vertigo Family History Family History Father Skin cancer Cardiovascular disease Myocardial infarction Hypertension IBS (irritable bowel syndrome) Mother Hypertension Sister Myocardial infarction Hypertension Heartburn Paternal Uncle Colon cancer Paternal Grandmother Colon cancer Family history of problems with anesthesia: Yes (PONV) Surgical History Surgical History H/O colonoscopy H/O esophagogastroduodenoscopy History of endometrial ablation History of partial hysterectomy Hx of cystoscopy Hx of lithotripsy History of Problems with Anesthesia: Yes (PONV) Social History Social History Household Members: Children Housing: Apartment Do you presently have visiting nurse or other home services: No Alcohol intake: current Alcohol intake frequency: does not drink Patient Tobacco Use Status: Never used Tobacco Second Hand Smoke Exposure: No Are you DNR?: No Advance Directives: No Advance Directives Information Provided: Yes Advance Directives Date on File: 08/21/21 Nutrition Risks: No Nutritional Risk service: No Current occupational status: employed Meds Allergies Allergy/AdvReac Type Severity Reaction Status Date / Time cephalexin [CEPHALEXIN] Allergy Severe SWELLING Verified 10/05/22 08:57 clavulanic acid Allergy Severe ANAPHYLAXIS Verified 10/05/22 08:57 [From AUGMENTIN] clindamycin [CLINDAMYCIN] Allergy Severe TONGUE Verified 10/05/22 08:57 SWELLING codeine Allergy Severe PASSED OUT Verified 10/05/22 08:57 influenza virus vaccine, Allergy Severe ANAPHYLAXIS Verified 10/05/22 08:57 specific [FLU VACCINE] perflutren [From Definity] Allergy Severe hives/anaph Verified 10/05/22 08:57 ylaxis seafood Allergy Severe Anaphylaxis Verified 10/05/22 08:57 fluconazole Allergy Intermediate HIVES Verified 10/05/22 08:57 gentamicin [GENTAMICIN] Allergy Intermediate RASH Verified 10/05/22 08:57 Iodinated Contrast Media Allergy Intermediate Hives Verified 10/05/22 08:57 [IV Contrast Dye] oxycodone Allergy Intermediate SOB Verified 10/05/22 08:57 sulfamethoxazole Allergy Mild swelling Verified 10/05/22 08:57 [From Bactrim] trimethoprim [From Bactrim] Allergy Mild swelling Verified 10/05/22 08:57 pineapple Allergy Anaphylaxis Verified 10/05/22 08:57 scopolamine AdvReac Severe Vomiting Verified 10/05/22 08:57 midazolam AdvReac Intermediate Vomiting Verified 10/05/22 08:57 Home Medications Medication Instructions Recorded Confirmed Last Taken Type meclizine 12.5 mg tablet 1 tab PO TID PRN Vertigo 06/18/20 08/19/22 Unknown History losartan 50 mg tablet 50 mg PO DAILY 04/24/22 08/19/22 Unknown History albuterol sulfate 90 mcg/actuation 2 puff inhalation Q4H PRN wheezing 08/06/22 08/19/22 Unknown History aerosol inhaler epinephrine 0.3 mg/0.3 mL 0.3 ml IM ONCE PRN 08/19/22 08/19/22 Unknown History injection, auto-injector ibuprofen 800 mg tablet 800 mg PO Q8H PRN 08/19/22 Unknown History lorazepam 0.5 mg tablet 0.5 mg PO DAILY PRN 08/19/22 Unknown History potassium citrate 10 mEq (1,080 20 meq PO DAILY 08/19/22 Unknown History mg) tablet,extended release tramadol 50 mg tablet 50 mg PO DAILY PRN 08/19/22 Unknown History Exam Exam Date and Time: October 02, 2022 0855 Height,Weight and Vital Signs: Height 5 ft 2.25 in Weight 96.162 kg Narrative Narrative: EKG 07/2022 Vent. Rate : 069 BPM ? ? Atrial Rate : 069 BPM ?? P-R Int : 150 ms? QRS Dur : 078 ms ? ? QT Int : 410 ms ? ? ? P-R-T Axes : 038 005 -02 degrees ?? QTc Int : 439 ms ? Normal sinus rhythm Minimal voltage criteria for LVH, may be normal variant ( R in aVL ) Nonspecific ST abnormality Abnormal ECG When compared with ECG of 20-DEC-2021 11:26, No significant change was found Per cardiology office visit:: 30 day event monitor- average heart rate 90/Min but several episodes sinus tachycardia; there were also atrial ectopics;? premature ventricular contractions, some couplets and 1 episode of what appeared to be NSVT for 19 beats.? She did feel the episode of NSVT.? Echocardiogram without any evidence of structural heart disease.? In the exercise stress test, she was able to do 5 minutes and 47 seconds on Ridge protocol and reached 91% of max predicted heart rate with some shortness of breath, but no other symptoms and isolated PACs but no SVT.? Coronary calcium scoring-0. Overall, she has some degree of sinus tachycardia which could be from deconditioning, inappropriate sinus tachycardia, in some combination.? The NSVT episode itself was isolated and nothing recurrent has been shown.? There is no evidence of any cardiomyopathy.? Assessment and Plan Assessment Anesthesia Assessment: Chart Reviewed Final Anesthetic Review Family History of Problems with Anesthesia: Yes (PONV) History of Problems with Anesthesia: Yes (PONV) Documented by User: Concha Dyson MD 10/05/22 10:02 [facility] Past Medical History Medical History Asthma Carotid artery disease Essential hypertension Fibromyalgia H/O ganglion cyst History of COVID-19 HTN (hypertension) Kidney stones Migraine Morbid obesity with BMI of 40.0-44.9, adult NAFLD (nonalcoholic fatty liver disease) NSVT (nonsustained ventricular tachycardia) PAC (premature atrial contraction) Post-operative nausea and vomiting PVC (premature ventricular contraction) Vertigo Family History Family History Father Skin cancer Cardiovascular disease Myocardial infarction Hypertension IBS (irritable bowel syndrome) Mother Hypertension Sister Myocardial infarction Hypertension Heartburn Paternal Uncle Colon cancer Paternal Grandmother Colon cancer Surgical History Surgical History H/O colonoscopy H/O esophagogastroduodenoscopy History of endometrial ablation History of partial hysterectomy Hx of cystoscopy Hx of lithotripsy Social History Social History Household Members: Children Housing: Apartment Do you presently have visiting nurse or other home services: No Alcohol intake: current Alcohol intake frequency: does not drink Patient Tobacco Use Status: Never used Tobacco Second Hand Smoke Exposure: No Are you DNR?: No Advance Directives: No Advance Directives Information Provided: Yes Advance Directives Date on File: 08/21/21 Nutrition Risks: No Nutritional Risk service: No Current occupational status: employed Meds Allergies Allergy/AdvReac Type Severity Reaction Status Date / Time cephalexin [CEPHALEXIN] Allergy Severe SWELLING Verified 10/05/22 08:57 clavulanic acid Allergy Severe ANAPHYLAXIS Verified 10/05/22 08:57 [From AUGMENTIN] clindamycin [CLINDAMYCIN] Allergy Severe TONGUE Verified 10/05/22 08:57 SWELLING codeine Allergy Severe PASSED OUT Verified 10/05/22 08:57 influenza virus vaccine, Allergy Severe ANAPHYLAXIS Verified 10/05/22 08:57 specific [FLU VACCINE] perflutren [From Definity] Allergy Severe hives/anaph Verified 10/05/22 08:57 ylaxis seafood Allergy Severe Anaphylaxis Verified 10/05/22 08:57 fluconazole Allergy Intermediate HIVES Verified 10/05/22 08:57 gentamicin [GENTAMICIN] Allergy Intermediate RASH Verified 10/05/22 08:57 Iodinated Contrast Media Allergy Intermediate Hives Verified 10/05/22 08:57 [IV Contrast Dye] oxycodone Allergy Intermediate SOB Verified 10/05/22 08:57 sulfamethoxazole Allergy Mild swelling Verified 10/05/22 08:57 [From Bactrim] trimethoprim [From Bactrim] Allergy Mild swelling Verified 10/05/22 08:57 pineapple Allergy Anaphylaxis Verified 10/05/22 08:57 scopolamine AdvReac Severe Vomiting Verified 10/05/22 08:57 midazolam AdvReac Intermediate Vomiting Verified 10/05/22 08:57 Home Medications Medication Instructions Recorded Confirmed Last Taken Type meclizine 12.5 mg tablet 1 tab PO TID PRN Vertigo 06/18/20 08/19/22 Unknown History losartan 50 mg tablet 50 mg PO DAILY 04/24/22 08/19/22 Unknown History albuterol sulfate 90 mcg/actuation 2 puff inhalation Q4H PRN wheezing 08/06/22 08/19/22 Unknown History aerosol inhaler epinephrine 0.3 mg/0.3 mL 0.3 ml IM ONCE PRN 08/19/22 08/19/22 Unknown History injection, auto-injector ibuprofen 800 mg tablet 800 mg PO Q8H PRN 08/19/22 Unknown History lorazepam 0.5 mg tablet 0.5 mg PO DAILY PRN 08/19/22 Unknown History potassium citrate 10 mEq (1,080 20 meq PO DAILY 08/19/22 Unknown History mg) tablet,extended release tramadol 50 mg tablet 50 mg PO DAILY PRN 08/19/22 Unknown History Exam Airway Mallampati Class: III TM Dist: >3cm Neck ROM: Full Loose/Missing/Broken Teeth: No Heart: RRR Lungs: CTA Assessment and Plan Assessment Anesthesia Assessment: Anesthesia Plan Discussed Final Anesthetic Review NPO: Yes ASA Class: II Final Preanesthetic Review: Meds/Allgs Chart Reviewed, Consent Obtained/Reviewed and Anes Risks/Benef Reviewed Patient Risk: Low Procedure Risk: Intermediate Anesthetic Plan Anesthetic Plan: MAC: Disposition: Standard PACU
--- NOTE | 2022-10-05 09:05 | MHC.SHP ---
Pre-Procedural Eval Section A Date of Service: 10/05/22 The patient is an INPATIENT: No The History & Physical has been completed within 30 days and I have reviewed it.: No Section B Chief Complaint: Family hx of colon cancer, gerd Relevant Family History (Specify if Yes): Yes Relevant Social History: None Present Medications: see Short Stay Collaborative assessment Medical History: Significant History (Asthma Atypical chest pain Carotid artery disease Essential hypertension Fibromyalgia H/O ganglion cyst History of COVID-19 HTN (hypertension) Kidney stones Migraine Morbid obesity with BMI of 40.0-44.9, adult NAFLD (nonalcoholic fatty liver disease) NSVT (nonsustained ventricular tachycardia) PAC () History of Previous Operations: Relevant previous surgery/procedure and date(s) (H/O colonoscopy H/O esophagogastroduodenoscopy History of endometrial ablation History of partial hysterectomy Hx of cystoscopy Hx of lithotripsy) Allergies: Allergies Allergy/AdvReac Type Severity Reaction Status Date / Time cephalexin [CEPHALEXIN] Allergy Severe SWELLING Verified 10/05/22 08:57 clavulanic acid Allergy Severe ANAPHYLAXIS Verified 10/05/22 08:57 [From AUGMENTIN] clindamycin [CLINDAMYCIN] Allergy Severe TONGUE Verified 10/05/22 08:57 SWELLING codeine Allergy Severe PASSED OUT Verified 10/05/22 08:57 influenza virus vaccine, Allergy Severe ANAPHYLAXIS Verified 10/05/22 08:57 specific [FLU VACCINE] perflutren [From Definity] Allergy Severe hives/anaph Verified 10/05/22 08:57 ylaxis seafood Allergy Severe Anaphylaxis Verified 10/05/22 08:57 fluconazole Allergy Intermediate HIVES Verified 10/05/22 08:57 gentamicin [GENTAMICIN] Allergy Intermediate RASH Verified 10/05/22 08:57 Iodinated Contrast Media Allergy Intermediate Hives Verified 10/05/22 08:57 [IV Contrast Dye] oxycodone Allergy Intermediate SOB Verified 10/05/22 08:57 sulfamethoxazole Allergy Mild swelling Verified 10/05/22 08:57 [From Bactrim] trimethoprim [From Bactrim] Allergy Mild swelling Verified 10/05/22 08:57 pineapple Allergy Anaphylaxis Verified 10/05/22 08:57 scopolamine AdvReac Severe Vomiting Verified 10/05/22 08:57 midazolam AdvReac Intermediate Vomiting Verified 10/05/22 08:57 Review of Systems Sugical H&P ROS: Negative: Constitution, Cardiovascular, Respiratory and Gastrointestinal Exam Surgical H&P Exam: Normal: Heart, Normal: Lungs, Normal: Extremities and Normal: Abdomen Plan Diagnosis/Plan: Change (EGD added per pt request) I have reviewed the history and physical and performed a pertinent physical examination on my patient. No changes have occurred unless specified. Time Spent With Patient Time: Total time managing care of this patient today ____ minutes.
[2022-10-05 09:14] VITALS: BP 115/73; PULSE 83; RESP 18; TEMP 36.4; O2SAT 97
--- NOTE | 2022-10-05 10:02 | W.PM.OPN ---
Operative Note Operative Note Date of Service: 10/05/22 Narrative: FLEXIBLE TRANSORAL UPPER GASTROINTESTINAL ENDOSCOPY WITH BIOPSIES AND COLONOSCOPY TILL CECUM WITH BIOPSIES, SNARE POLYPECTOMY AND SUBMUCOSAL INJECTION Pre-op diagnosis: Family hx of colon cancer, GERD Post-op diagnosis: Gastritis, gastric polyps, gastric erosion, colon polyps, diverticulosis, melanosis coli Endoscopist:? Hiral Millard MD Anesthesia:?MAC UPPER ENDOSCOPY Consent: Indications for the procedure and potential complications of bleeding, perforation, reaction to medications and missed diagnosis were discussed with the patient and informed consent was obtained. Instrument: Olympus GIF H 190 mid size upper endoscope Monitoring: Vital signs and clinical assessment, continuous EKG monitoring, Pulse oximetry, Carbon Dioxide monitoring and blood pressure monitoring were done throughout the procedure. Procedure: The patient was placed in the left lateral decubitis position and pre-procedure medications were administered and a bite block was placed. The endoscope was inserted into the mouth and advanced under direct vision to the third part of duodenum. A careful inspection was made as the upper endoscope was withdrawn including a retroflexed examination of the proximal stomach; Findings and interventions are described below. Findings: Esophagus: GE junction at 36 cms. No esophagitis or Marinelli's. Stomach: Multiple 5 to 10 mm benign appearing polyps in the gastric body - biopsied. Mild gastric erythema with a 5 mm superficial erosion in the gastric antrum. Biopsies were obtained. Grade 2 flap valve on retroflexed examination of the cardia. Duodenum: Normal bulb and descending duodenum Intervention: Biopsies as noted above COLONOSCOPY PROCEDURE NOTE Consent: Indications for the procedure and potential complications of bleeding, perforation, reaction to medications and missed diagnosis were discussed with the patient and informed consent was obtained. Instrument: Olympus PCF H 190 L variable stiffness pediatric colonoscope Monitoring: Vital signs and clinical assessment, intermittent blood pressure monitoring, continuous EKG monitoring, Pulse oximetry and Carbon Dioxide monitoring were done throughout the procedure. Colon withdrawl time was 16 minutes. Procedure: The patient was placed in the left lateral decubitis position and pre-procedure medications were administered. After a digital rectal examination of the ano-rectum, the video colonoscope was inserted into the rectum and advanced through the colon to the cecum. The colonoscope was slowly withdrawn in a retrograde panoramic fashion and the colon mucosa was carefully examined including a retroflexed view of the rectum. Findings and interventions are described below. Procedure Difficulty: : Without difficulty Findings: Terminal Ileum: Not evaluated Cecum: Mild diffuse melanosis coli throughout the colon Ascending Colon: Mild diffuse melanosis coli throughout the colon Random biopsies were obtained from the right colon Transverse Colon: A 2.5 cms flat polyp at 70 cms. Polyp was raised with 5 cc of Eleview and removed with a hot stiff snare. A 4-5 mm sessile polyp in the distal transverse colon - removed with a cold bx. 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 Descending Colon: Mild diffuse melanosis coli throughout the colon Sigmoid Colon: Mild diffuse melanosis coli throughout the colon Moderate diverticulosis Rectum: Mild diffuse melanosis coli throughout the colon Ano-rectum: Normal Colon preparation: Good Impression and Post Procedure Diagnosis: Endoscopy Findings: STOMACH: Mild gastritis with a superficial erosion Colonoscopy Findings: One medium sized and one small polyps removed Moderate diverticulosis seen in the left colon Plan: Await pathology results Patient has an appointment on 10/19/22 in the GI Clinic with BRITNEY Navarro. Repeat Colonoscopy interval based on path results - in 3 - 5 years if polyps are adenomatous and due to family history of colon cancer. Above findings were reviewed with the patient and colon polyps and diverticulosis handouts were given in the discharge area ADDENDUM: Family hx and genetic test results: She has a strong family history of cancer including a maternal aunt diagnosed in her 40s, a maternal cousin diagnosed with breast cancer at the age of 33, and maternal grandmother with ovarian cancer at the age of 50, Her paternal grandmother and paternal uncle with colon cancer, and a paternal uncle with pancreatic cancer in his 40s.? Her Caroline model calculation indicated of lifetime risk of breast cancer at 36% and the Tyrer-Cuzick score revealed a lifetime risk of 25.4%. She subsequently underwent genetic testing which revealed no deleterious mutations identified.? Two variance of uncertain significance 1 in the MSH3 and another in the NTHL1 foci.??
[2022-10-05 10:51] VITALS: BP 101/65; PULSE 75; RESP 20; TEMP 36.2; O2SAT 100
[2022-10-05 11:05] VITALS: BP 115/77; PULSE 78; RESP 20; TEMP 36.6; O2SAT 98
== END 2022-10-05 11:42 | disposition home or self-care (01) ==
PROVIDERS: PCP Nurse Practitioner Family; Visit Provider Internal Medicine Gastroenterology
PROC: (CPT 45385; principal; 2022-10-05 10:20)
DX: Z12.11 Encounter for screening for malignant neoplasm of colon (principal); D12.3 Benign neoplasm of transverse colon; K63.5 Polyp of colon; K57.30 Diverticulosis of large intestine without perforation or abscess without bleeding; K63.89 Other specified diseases of intestine; Z80.0 Family history of malignant neoplasm of digestive organs; K21.9 Gastro-esophageal reflux disease without esophagitis; K29.70 Gastritis, unspecified, without bleeding; K31.7 Polyp of stomach and duodenum; K76.0 Fatty (change of) liver, not elsewhere classified; I10 Essential (primary) hypertension; J45.909 Unspecified asthma, uncomplicated; Z88.8 Allergy status to other drugs, medicaments and biological substances; Z88.2 Allergy status to sulfonamides; Z91.041 Radiographic dye allergy status
CPT/HCPCS: 45385; 45381; 45380; 43239; 88305; 88342

== ENCOUNTER → 2022-10-12 07:45 | Outpatient (REF) | payer BC, SELFPAY ==
--- NOTE | 2022-10-12 07:52 | HM_ITS ---
Conclusion: 1. Patient was monitored for total period of 3 days and 20 minutes 2. Baseline was normal sinus rhythm with average heart rate of 84 beats per minute 3. No significant pauses noted 4. Rare ectopy noted 5. No patient reported events MTDD
== END ==
LOC: HO.CARD 07:45
PROVIDERS: PCP Nurse Practitioner Family; Visit Provider Internal Medicine
DX: I47.20 Ventricular tachycardia, unspecified (principal)
CPT/HCPCS: 93242

== ENCOUNTER → 2022-10-12 07:52 | Outpatient (BNV) | payer BC, SELFPAY | PROVIDERS: PCP Nurse Practitioner Family; Visit Provider Internal Medicine Cardiovascular Disease | DX: I47.20 Ventricular tachycardia, unspecified (principal) | CPT/HCPCS: 93244 ==

== ENCOUNTER 2022-10-13 09:16 | Outpatient (AMB) | payer BC, SELFPAY ==
--- NOTE | 2022-10-13 09:31 | A.OFFVIS_ITS ---
Intake Vital Signs 10/13/22 09:37 Height 5 ft 2.5 in Weight 198 lb BMI 35.6 BP 144/89 H Blood Pressure Location Lt brachial Position Sitting Pulse 82 Intake Visit Reasons: 6 month breast exam Intake Note: Patient is seen in office for 6 month follow up visit, breast exam. 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 Accompanied by: Self / Same As Patient Allergies cephalexin [CEPHALEXIN] Allergy (Severe, Verified 10/13/22 09:32) SWELLING clavulanic acid [From AUGMENTIN] Allergy (Severe, Verified 10/13/22 09:32) ANAPHYLAXIS clindamycin [CLINDAMYCIN] Allergy (Severe, Verified 10/13/22 09:32) TONGUE SWELLING codeine Allergy (Severe, Verified 10/13/22 09:32) PASSED OUT influenza virus vaccine, specific [FLU VACCINE] Allergy (Severe, Verified 10/13/22 09:32) ANAPHYLAXIS perflutren [From Definity] Allergy (Severe, Verified 10/13/22 09:32) hives/anaphylaxis seafood Allergy (Severe, Verified 10/13/22 09:32) Anaphylaxis fluconazole Allergy (Intermediate, Verified 10/13/22 09:32) HIVES gentamicin [GENTAMICIN] Allergy (Intermediate, Verified 10/13/22 09:32) RASH Iodinated Contrast Media [IV Contrast Dye] Allergy (Intermediate, Verified 10/13/22 09:32) Hives oxycodone Allergy (Intermediate, Verified 10/13/22 09:32) SOB sulfamethoxazole [From Bactrim] Allergy (Mild, Verified 10/13/22 09:32) swelling trimethoprim [From Bactrim] Allergy (Mild, Verified 10/13/22 09:32) swelling pineapple Allergy (Verified 10/13/22 09:32) Anaphylaxis scopolamine Adverse Reaction (Severe, Verified 10/13/22 09:32) Vomiting midazolam Adverse Reaction (Intermediate, Verified 10/13/22 09:32) Vomiting Medication List - Last Reconciled 10/13/22 by Drew Martinez MD albuterol sulfate 90 mcg/actuation 2 puffs inhalation Q4H PRN diltiazem HCl 120 mg PO BID epinephrine 0.3 mL IM ONCE PRN hydromorphone (Dilaudid) 2 mg PO Q4-6H PRN 7 days ibuprofen 800 mg PO Q8H PRN lorazepam 0.5 mg PO DAILY PRN losartan 50 mg PO DAILY meclizine 1 tab PO TID PRN ondansetron 4 mg PO Q8H 3 days phenazopyridine (Pyridium) 100 mg PO TID PRN 4 days potassium citrate ER 20 mEq PO DAILY pyridoxine (vitamin B6) 100 mg (2 x 50 mg) PO DAILY 90 days tamsulosin 0.4 mg PO BEDTIME 14 days tramadol 50 mg PO DAILY PRN HPI HPI Comments History of Present Illness Details 47-year-old female patient returning for a follow-up high risk breast cancer screening. She has a strong family history of cancer including a maternal aunt diagnosed in her 40s, a maternal cousin diagnosed with breast cancer at the age of 33, and maternal grandmother with ovarian cancer at the age of 50, a paternal grandmother and paternal uncle with colon cancer, and a paternal uncle with pancreatic cancer in his 40s. Her Caroline model calculation indicated of lifetime risk of breast cancer at 36% and the Tyrer-Cuzick score revealed a lifetime risk of 25.4% she has been undergoing annual mammography but because of allergic reaction to the dye, she is unable to have a breast MRI. As a replacement she is undergoing screening bilateral ultrasounds. She was initially evaluated by Dr. Swanson on 03/17/2018. She subsequently underwent genetic testing which revealed no deleterious mutations identified. Two variance of uncertain significance 1 in the MSH3 and another in the NTHL1 foci. She reports Bilateral breast pain which seem to associated with increased stress in her life. This pain is subsequently resolved after several weeks and she is now pain-free. She denies nipple discharge, palpable mass, skin changes, or enlarged lymph nodes. Her last mammogram of 11/27/2021 revealed no suspicious findings in either breast (BI-RADS 2 ). Bilateral screening ultrasounds were also performed on 11/27/2021 and revealed benign findings ( BI-RADS 1). She is scheduled for an annual mammogram on 12/01/2022 at the [facility]. [facility] Medical History Asthma Carotid artery disease Essential hypertension Fibromyalgia H/O ganglion cyst History of COVID-19 HTN (hypertension) Kidney stones Migraine Morbid obesity with BMI of 40.0-44.9, adult NAFLD (nonalcoholic fatty liver disease) NSVT (nonsustained ventricular tachycardia) PAC (premature atrial contraction) Post-operative nausea and vomiting PVC (premature ventricular contraction) Vertigo Surgical History H/O colonoscopy H/O esophagogastroduodenoscopy History of endometrial ablation History of partial hysterectomy Hx of cystoscopy Hx of lithotripsy Family History Father Skin cancer Cardiovascular disease Myocardial infarction Hypertension IBS (irritable bowel syndrome) Mother Hypertension Sister Myocardial infarction Hypertension Heartburn Paternal Uncle Colon cancer Paternal Grandmother Colon cancer Social History Household Members: Children Housing: Apartment Do you presently have visiting nurse or other home services: No Alcohol intake: current Alcohol intake frequency: does not drink Patient Tobacco Use Status: Never used Tobacco Second Hand Smoke Exposure: No Advance Directives Date on File: 08/21/21 service: No Current occupational status: employed Review of Systems Const All systems reviewed & are unremarkable except as noted in HPI and below Card Reports irregular heart rhythm Denies nipple discharge Skin/Breast Denies breast swelling, Denies breast skin changes, Denies breast pain, Denies breast mass, Denies change in breast shape and Denies nipple discharge Leo/Lymph Denies lymphadenopathy Physical Exam Vital Signs: Last Vital Signs Pulse 82 10/13/22 09:37 BP 144/89 H 10/13/22 09:37 BMI result Body Mass Index 35.6 Const General: well developed Nutritional Appearance: well nourished Orientation/consciousness: patient oriented x3 Limitations: no limitations HEENT Head: Yes normocephalic and Yes atraumatic Neck Neck: Yes no lymphadenopathy, Yes trachea midline and Yes no JVD Chest Other: Left breast: No skin change, no nipple retraction, no nipple discharge, no palpable mass, no enlarged lymph nodes. Mild fibrocystic pattern especially in the upper outer quadrant . Right breast: No skin change, no nipple retraction, no nipple discharge, no p alpable mass, no enlarged lymph nodes. Mild fibrocystic pattern especially in the upper outer quadrant. Resp Effort & Inspection: normal respiratory effort, no audible wheezes and no cough GI Inspection: Yes normal to inspection Skin General skin exam: no rashes or lesions noted Neuro General: patient oriented x3 Extrem General: Yes no clubbing, cyanosis or edema Assessment & Plan Assessment & Plan (1) Bilateral mastodynia: Code(s): N64.4 - Mastodynia (2) Family history of breast cancer: Code(s): Z80.3 - Family history of malignant neoplasm of breast (3) At high risk for breast cancer: Code(s): Z91.89 - Other specified personal risk factors, not elsewhere classified Plan 47-year-old female patient returning for a high risk breast examination due to a strong family history for breast cancer. Her genetic testing is negative for deleterious mutations and she denies any new symptoms since her last visit. Her most recent mammogram of 11/27/2021 reveals no suspicious findings in either breast (BI-RADS 2). Screening ultrasounds of bilateral breasts on 11/27/2021 revealed no suspicious findings ( BI-RADS 1). Examination today reveals no suspicious findings in either breast other than fibrocystic change bilaterally. She is scheduled for a follow-up annual mammogram on 12/01/2022. She will return in 6 months for follow-up examination. Coding Level of Care Code Est Pt Level 3 (41915) Diagnoses Bilateral mastodynia N64.4 Family history of breast cancer Z80.3 At high risk for breast cancer Z91.89
[2022-10-13 09:37] VITALS: BP 144/89; PULSE 82; BMI 35.6
== END 2022-10-13 09:49 | disposition home or self-care (01) ==
PROVIDERS: PCP Nurse Practitioner Family; Visit Provider Surgery
DX: N64.4 Mastodynia (principal); Z80.3 Family history of malignant neoplasm of breast; Z91.89 Other specified personal risk factors, not elsewhere classified
CPT/HCPCS: 99213

== ENCOUNTER → 2022-10-13 09:16 | Outpatient (BNVA) | payer BC, SELFPAY | PROVIDERS: PCP Nurse Practitioner Family; Visit Provider Surgery ==

== ENCOUNTER 2022-10-19 07:24 | Outpatient (AMB) | payer BC, SELFPAY ==
[2022-10-19 07:43] VITALS: BP 119/78; PULSE 81; BMI 35.5
--- NOTE | 2022-10-19 07:43 | MHC.OFFVIS ---
Intake Vital Signs 10/19/22 07:43 Height 5 ft 2.5 in Weight 197 lb BMI 35.5 BP 119/78 Blood Pressure Location Lt brachial Position Sitting Pulse 81 Intake Visit Reasons: S/p colo Freeman Intake Note: Patient follow up for EGD/Colonoscopy results. Patient denies any GI issues. 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 Accompanied by: Self / Same As Patient Allergies cephalexin [CEPHALEXIN] Allergy (Severe, Verified 10/19/22 07:58) SWELLING clavulanic acid [From AUGMENTIN] Allergy (Severe, Verified 10/19/22 07:58) ANAPHYLAXIS clindamycin [CLINDAMYCIN] Allergy (Severe, Verified 10/19/22 07:58) TONGUE SWELLING codeine Allergy (Severe, Verified 10/19/22 07:58) PASSED OUT influenza virus vaccine, specific [FLU VACCINE] Allergy (Severe, Verified 10/19/22 07:58) ANAPHYLAXIS perflutren [From Definity] Allergy (Severe, Verified 10/19/22 07:58) hives/anaphylaxis seafood Allergy (Severe, Verified 10/19/22 07:58) Anaphylaxis fluconazole Allergy (Intermediate, Verified 10/19/22 07:58) HIVES gentamicin [GENTAMICIN] Allergy (Intermediate, Verified 10/19/22 07:58) RASH Iodinated Contrast Media [IV Contrast Dye] Allergy (Intermediate, Verified 10/19/22 07:58) Hives oxycodone Allergy (Intermediate, Verified 10/19/22 07:58) SOB sulfamethoxazole [From Bactrim] Allergy (Mild, Verified 10/19/22 07:58) swelling trimethoprim [From Bactrim] Allergy (Mild, Verified 10/19/22 07:58) swelling pineapple Allergy (Verified 10/19/22 07:58) Anaphylaxis scopolamine Adverse Reaction (Severe, Verified 10/19/22 07:58) Vomiting midazolam Adverse Reaction (Intermediate, Verified 10/19/22 07:58) Vomiting Medication List - Last Reconciled 10/19/22 by Nanci Ochoa PA-C albuterol sulfate 90 mcg/actuation 2 puffs inhalation Q4H PRN diltiazem HCl 120 mg PO BID epinephrine 0.3 mL IM ONCE PRN hydromorphone (Dilaudid) 2 mg PO Q4-6H PRN 7 days ibuprofen 800 mg PO Q8H PRN lorazepam 0.5 mg PO DAILY PRN losartan 50 mg PO DAILY meclizine 1 tab PO TID PRN ondansetron 4 mg PO Q8H 3 days phenazopyridine (Pyridium) 100 mg PO TID PRN 4 days potassium citrate ER 20 mEq PO DAILY pyridoxine (vitamin B6) 100 mg (2 x 50 mg) PO DAILY 90 days tamsulosin 0.4 mg PO BEDTIME 14 days tramadol 50 mg PO DAILY PRN HPI HPI Comments History of Present Illness Details A 47 y/o follows up after EGD/ colon- Dr. Millard Reviewed procedure report and pathology She has no GI or general complaints today PFSH Medical History Asthma Carotid artery disease Essential hypertension Fibromyalgia H/O ganglion cyst History of COVID-19 HTN (hypertension) Kidney stones Migraine Morbid obesity with BMI of 40.0-44.9, adult NAFLD (nonalcoholic fatty liver disease) NSVT (nonsustained ventricular tachycardia) PAC (premature atrial contraction) Post-operative nausea and vomiting PVC (premature ventricular contraction) Vertigo Surgical History H/O colonoscopy H/O esophagogastroduodenoscopy History of endometrial ablation History of partial hysterectomy Hx of cystoscopy Hx of lithotripsy Family History Father Skin cancer Cardiovascular disease Myocardial infarction Hypertension IBS (irritable bowel syndrome) Mother Hypertension Sister Myocardial infarction Hypertension Heartburn Paternal Uncle Colon cancer Paternal Grandmother Colon cancer Social History Household Members: Children Housing: Apartment Do you presently have visiting nurse or other home services: No Alcohol intake: current Alcohol intake frequency: does not drink Patient Tobacco Use Status: Never used Tobacco Second Hand Smoke Exposure: No Advance Directives Date on File: 08/21/21 service: No Current occupational status: employed Review of Systems Const All systems reviewed & are unremarkable except as noted in HPI and below Physical Exam Vital Signs: Last Vital Signs Pulse 81 10/19/22 07:43 BP 119/78 10/19/22 07:43 BMI result Body Mass Index 35.5 Const General: cooperative, healthy appearing, comfortable and no acute distress Orientation/consciousness: patient oriented x3 Limitations: no limitations Eyes Sclerae: sclerae normal Resp Effort & Inspection: normal respiratory effort and able to speak in complete sentences Neuro General: patient oriented x3 Extrem General: Yes full ROM Psych Appearance: grossly normal and well kempt Mental Status: mental status grossly normal Speech and movement: Normal speech and movement present and Clear speech present Affect: normal affect Attitude: cooperative Thought process: Normal thought process present Thought content: Normal thought content present Insight: Good insight present (Psych) Judgement: Good judgement present (Psych) Results Reviewed Results Reviewed: Impression and Post Procedure Diagnosis: Endoscopy Findings: STOMACH: Mild gastritis with a superficial erosion Colonoscopy Findings: One medium sized and one small polyps removed Moderate diverticulosis seen in the left colon Plan: Await pathology results Patient has an appointment on 10/19/22 in the GI [facility] with BRITNEY Navarro. Repeat Colonoscopy interval based on path results - in 3 - 5 years if polyps are adenomatous and due to family history of colon cancer. Above findings were reviewed with the patient and colon polyps and diverticulosis handouts were given in the discharge area ADDENDUM:? Family hx and genetic test results: She has a strong family history of cancer including a maternal aunt diagnosed in her 40s, a maternal cousin diagnosed with breast cancer at the age of 33, and maternal grandmother with ovarian cancer at the age of 50, Her paternal grandmother and paternal uncle with colon cancer, and a paternal uncle with pancreatic cancer in his 40s.? Her Caroline model calculation indicated of lifetime risk of breast cancer at 36% and the Tyrer-Cuzick score revealed a lifetime risk of 25.4%. She subsequently underwent genetic testing which revealed no deleterious mutations identified.? Two variance of uncertain significance 1 in the MSH3 and another in the NTHL1 foci.?? Name:?Patti Drake Age/Sex: 47/F Attending: Hiral Millard MD : 1975 Submitted by: Hiral Millard MD Copies to: Jane Dao NP MR #: [id number] ? Status: DEP [facility] [place] Collected: 10/05/22 Location: [facility] Received: 10/05/22 ??? THIS IS A CORRECTED REPORT ?This is a corrected report. ?Any previous versions are stored internally and are available if necessary. ADDENDUM REPORTAddendum Addendum #1 (A, B and C): Immunostains for H. pylori are negative with appropriate control. Electronically Signed By: Karena Savage ? 10/08/221856 Diagnosis A.? Gastric antrum, biopsy:? Gastric antral mucosa with focal minimal chronic inactive inflammation; negative for intestinal metaplasia and dysplasia (see comment).? B.? Stomach, erosion, biopsy:? Gastric body mucosa with minimal chronic inactive gastritis and possible erosion; negative for intestinal metaplasia and dysplasia (see comment).? C.? Gastric polyp:? Fundic gland polyp with?low-grade adenomatous dysplasia; negative for intestinal metaplasia and high-grade dysplasia (see comment).? D.? Colon, right, biopsy:? Colonic mucosa with pigmented lamina propria macrophages compatible with melanosis coli; otherwise no specific change.? E.? Colon, transverse at 70 cm, polyp:? Colonic mucosa with marked thermal artifact and pigmented lamina propria macrophages; no definitive adenomatous dysplasia is identified. F.? Colon, transverse, polyp:? Sessile serrated lesion/polyp without dysplasia, with pigmented lamina propria macrophages. Comment: (A, B, and C):? H pylori stains pending; addendum to follow. Note: Report corrected to add diagnoses to parts E and F, inadvertently left off; no other changes. Clinical History Pre-Op Dx:? GERD, family HX of colon cancer Post-Op Dx: Gastric polyps, gastritis, gastric erosion, Colon polyps, diverticulosis Microscopic Description Microscopic sections reviewed. Assessment & Plan Assessment & Plan (1) Diverticulosis: Code(s): K57.90 - Diverticulosis of intestine, part unspecified, without perforation or abscess without bleeding Plan: HFD Diverticulosis/ diverticulitis ER protocol (2) Sessile serrated polyp of colon: Comment: very anxious polyp- reviewed pathology reassured Code(s): D12.6 - Benign neoplasm of colon, unspecified Plan: 3 year repeat colon sooner if indicated (3) Fundic gland polyps of stomach, benign: Comment: Gastric polyp:? Fundic gland polyp with?low-grade adenomatous dysplasia; negative for intestinal metaplasia and high-grade dysplasia- Consult with Dr. Millard-re adenomatous change-certainly given patient history/family Code(s): D13.1 - Benign neoplasm of stomach Plan: Will call patient with plan of care Plan H pylori breath test if positive will treat She may begin omeprazole 20 mg after testing Orders: Orders H Pylori Breath Test 10/19/22 A04.8 - Other specified bacterial intestinal infections Medications: New omeprazole 20 mg PO DAILY 30 caps 5RF Patient Instructions: Of very pleasant 47-year-old female no family history of cancers, has undergone genetic testing- follows up after recent EGD colonoscopy Dr. Millard Will consult with Dr. Millard in regard to timing for repeat EGD (unsure of her protocol ) Maintain high-fiber diet, diverticulosis/diverticulitis ER protocol of reviewed Encouraged to call with any questions or concerns Appreciate the opportunity to assist in care pleasant patient Coding Level of Care Code Est Pt Level 3 (99136) Diagnoses Diverticulosis K57.90 Sessile serrated polyp of colon D12.6 Fundic gland polyps of stomach, benign D13.1 Time Spent (min) 30
== END 2022-10-19 08:46 | disposition home or self-care (01) ==
PROVIDERS: PCP Nurse Practitioner Family; Visit Provider Physician Assistant
DX: K57.90 Diverticulosis of intestine, part unspecified, without perforation or abscess without bleeding (principal); D12.6 Benign neoplasm of colon, unspecified; D13.1 Benign neoplasm of stomach
CPT/HCPCS: 99213

== ENCOUNTER → 2022-10-19 07:24 | Outpatient (BNVA) | payer BC, SELFPAY | PROVIDERS: PCP Nurse Practitioner Family; Visit Provider Physician Assistant ==

== ENCOUNTER 2022-10-23 07:23 | Outpatient (REF) | payer BC, SELFPAY ==
[2022-10-24 13:21] LABS: H Pylori Breath Test Negative (Negative)
== END 2022-10-23 07:24 | disposition home or self-care (01) ==
LOC: HO.LNP 07:23
PROVIDERS: PCP Nurse Practitioner Family; Visit Provider Physician Assistant
DX: A04.8 Other specified bacterial intestinal infections (principal)
CPT/HCPCS: 83013

== ENCOUNTER 2022-12-01 08:44 | Outpatient (REF) | payer BC, SELFPAY ==
--- NOTE | ~2022-12-01 | MM_ITS ---
EXAMINATION: MM SCREENING DIGITAL BREAST TOMOSYNTHESIS, BILATERAL CLINICAL INFORMATION: Screening. Asymptomatic. COMPARISON: Mammography: 11/27/2021 (including bilateral ultrasounds), 11/07/2020, 11/02/2019, and dating back to 2017. TECHNIQUE: Digital breast tomosynthesis is performed in both the craniocaudal and mediolateral oblique views along with computer-aided detection (CAD). Synthesized 2D images are generated from the tomosynthesis. FINDINGS: There are scattered areas of fibroglandular density (ACR BI-RADS breast composition Category b). There are benign dermal calcifications. Stable benign intramammary lymph nodes are noted in the upper outer breasts bilaterally. There are no suspicious masses, suspicious grouped calcifications, or areas of architectural distortion. The parenchymal pattern is stable from prior exams. There are no skin changes. MM/MM tomosynthesis screening BI IMPRESSION: No mammographic evidence of malignancy. Stable benign findings. ASSESSMENT: BI-RADS BI-RADS 2 - Benign Findings RECOMMENDATION: Routine annual mammography screening. 1 year F/U This examination should not preclude the clinical evaluation of a suspicious palpable abnormality. This patient's information was entered into a reminder system with a target due date for their next mammogram.
== END 2022-12-01 08:45 | disposition home or self-care (01) ==
LOC: HO.MAMMO 08:44
PROVIDERS: PCP Nurse Practitioner Family; Visit Provider Nurse Practitioner Family
DX: Z12.31 Encounter for screening mammogram for malignant neoplasm of breast (principal)
CPT/HCPCS: 77063; 77067

== ENCOUNTER → 2022-12-01 09:00 | Outpatient (BNV) | payer BC, SELFPAY | PROVIDERS: PCP Nurse Practitioner Family; Visit Provider Radiology Diagnostic Radiology | DX: Z12.31 Encounter for screening mammogram for malignant neoplasm of breast (principal) | CPT/HCPCS: 77063; 77067 ==

== ENCOUNTER 2023-02-19 | Outpatient (REF) | payer BC, SELFPAY | END 2023-02-19 00:01 | disposition home or self-care (01) | LOC: HO.US | PROVIDERS: PCP Nurse Practitioner Family; Visit Provider Nurse Practitioner Family | DX: N20.0 Calculus of kidney (principal) | CPT/HCPCS: 81003 ==

== ENCOUNTER 2023-02-19 08:47 | Outpatient (AMB) | payer BC, SELFPAY ==
--- NOTE | 2023-02-19 09:02 | A.OFFVIS_ITS ---
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: No Accompanied by: Self / Same As Patient Allergies cephalexin [CEPHALEXIN] Allergy (Severe, Verified 02/19/23 16:06) SWELLING clavulanic acid [From AUGMENTIN] Allergy (Severe, Verified 02/19/23 16:06) ANAPHYLAXIS clindamycin [CLINDAMYCIN] Allergy (Severe, Verified 02/19/23 16:06) TONGUE SWELLING codeine Allergy (Severe, Verified 02/19/23 16:06) PASSED OUT influenza virus vaccine, specific [FLU VACCINE] Allergy (Severe, Verified 02/19/23 16:06) ANAPHYLAXIS perflutren [From Definity] Allergy (Severe, Verified 02/19/23 16:06) hives/anaphylaxis seafood Allergy (Severe, Verified 02/19/23 16:06) Anaphylaxis fluconazole Allergy (Intermediate, Verified 02/19/23 16:06) HIVES gentamicin [GENTAMICIN] Allergy (Intermediate, Verified 02/19/23 16:06) RASH Iodinated Contrast Media [IV Contrast Dye] Allergy (Intermediate, Verified 02/19/23 16:06) Hives oxycodone Allergy (Intermediate, Verified 02/19/23 16:06) SOB sulfamethoxazole [From Bactrim] Allergy (Mild, Verified 02/19/23 16:06) swelling trimethoprim [From Bactrim] Allergy (Mild, Verified 02/19/23 16:06) swelling pineapple Allergy (Verified 02/19/23 16:06) Anaphylaxis scopolamine Adverse Reaction (Severe, Verified 02/19/23 16:06) Vomiting midazolam Adverse Reaction (Intermediate, Verified 02/19/23 16:06) Vomiting Medication List - Last Reconciled 02/19/23 by CECILIA Knight-CARLOS albuterol sulfate 90 mcg/actuation 2 puffs inhalation Q4H PRN diltiazem HCl 120 mg PO BID epinephrine 0.3 mL IM ONCE PRN hydromorphone (Dilaudid) 2 mg PO Q4-6H PRN 7 days ibuprofen 800 mg PO Q8H PRN lorazepam 0.5 mg PO DAILY PRN losartan 50 mg PO DAILY meclizine 1 tab PO TID PRN omeprazole 20 mg PO DAILY ondansetron 4 mg PO Q8H 3 days phenazopyridine (Pyridium) 100 mg PO TID PRN 4 days potassium citrate ER 20 mEq PO DAILY pyridoxine (vitamin B6) 100 mg (2 x 50 mg) PO DAILY 90 days tamsulosin 0.4 mg PO BEDTIME 14 days tramadol 50 mg PO DAILY PRN HPI HPI Comments History of Present Illness Details Patti is a 48 year old female patient of Dr Dao. She presents to the office today for follow-up of her nephrolithiasis and complex renal cyst. She has a past medical history of liver cysts, UTI, nonalcoholic fatty liver disease, hypertension, nonsustained ventricular tachycardia, kidney stones, and complex renal cyst. Of note, patient discusses having had recent renal imaging due to abdominal pain she had been experiencing. Recent renal imaging results obtained from [facility] been reviewed with the patient today. Multiple bilateral nonobstructing calculi measuring approximately 5-6 mm. She does report having had bilateral flank pain. She reports right-sided flank pain is greater than left. She otherwise denies any bothersome urinary issues or concerns at this time. She denies urinary urgency, urinary frequency, incontinence, nocturia, hematuria, dysuria, foul smelling urine, changes to urinary stream, flank pain, fever, and or chills. She is happy with her current voiding parameters. Discussed obtaining CT KUB for further assessment evaluation. She continues with potassium citrate and vitamin B6 as well as drinking increased amounts of water daily. She has a PMH of multiple surgical stone interventions in the past including ureteroscopy and ESWL. [facility] Medical History History of COVID-19 Post-operative nausea and vomiting NAFLD (nonalcoholic fatty liver disease) Morbid obesity with BMI of 40.0-44.9, adult H/O ganglion cyst Essential hypertension NSVT (nonsustained ventricular tachycardia) Vertigo Kidney stones Migraine Carotid artery disease Fibromyalgia HTN (hypertension) Asthma PAC (premature atrial contraction) PVC (premature ventricular contraction) Surgical History History of endometrial ablation Hx of cystoscopy Hx of lithotripsy H/O esophagogastroduodenoscopy H/O colonoscopy History of partial hysterectomy Family History Father Skin cancer Cardiovascular disease Myocardial infarction Hypertension IBS (irritable bowel syndrome) Mother Hypertension Sister Myocardial infarction Hypertension Heartburn Paternal Uncle Colon cancer Paternal Grandmother Colon cancer Social History Household Members: Children Housing: Apartment Do you presently have visiting nurse or other home services: No Alcohol intake: current Alcohol intake frequency: does not drink Patient Tobacco Use Status: Never used Tobacco Second Hand Smoke Exposure: No Advance Directives Date on File: 08/21/21 service: No Current occupational status: employed Review of Systems Const Reports no additional complaints Eyes Reports no additional complaints ENT Reports no additional complaints Card Reports as per HPI Resp Reports no additional complaints GI Reports as per HPI Reports as per HPI Musc Reports no additional complaints Neuro Reports no additional complaints Psych Reports no additional complaints Endo Reports no additional complaints Leo/Lymph Reports no additional complaints Aller/Immun Reports no additional complaints Physical Exam Const General: cooperative, healthy appearing, comfortable, no acute distress, well developed, alert and awake Orientation/consciousness: patient oriented x3 HEENT Head: Yes normal to inspection, Yes normocephalic and Yes atraumatic Eyes General: appearance normal, both eyes and all related structures Neck Neck: Yes normal visual inspection and Yes trachea midline Chest Chest palpation & inspection: normal inspection of the chest Resp Effort & Inspection: normal respiratory effort and able to speak in complete sentences Cardio Rate: regular rate GI Inspection: Yes normal to inspection General: Yes no CVA tenderness Back/Spine/Pelvis Back: no CVA tenderness Skin General skin exam: no rashes or lesions noted Neuro General: patient oriented x3 Extrem General: Yes normal to inspection Psych Appearance: grossly normal and well kempt Mental Status: mental status grossly normal Speech and movement: Normal speech and movement present and Clear speech present Affect: normal affect Attitude: cooperative Thought process: Normal thought process present Thought content: Normal thought content present Insight: Fair insight present (Psych) Judgement: Fair judgement present (Psych) Results AMB Urinalysis, Automated UA Leukoctes 0 Obey/uL Last Edit by Justino Vinson on 02/19/23 09:16 UA Nitrite Negative Last Edit by Justino Vinson on 02/19/23 09:16 UA Urobilinogen 0.2 mg/dL Last Edit by Justino Vinson on 02/19/23 09:16 UA Protein 15 mg/dL Last Edit by Justino Vinsno on 02/19/23 09:16 UA pH 6.0 Last Edit by Justino Vinson on 02/19/23 09:16 UA Blood 10 Riaz/uL Last Edit by Justino Vinson on 02/19/23 09:16 UA Specific [place] 1.025 Last Edit by Justino Vinson on 02/19/23 09:16 UA Ketone Negative Last Edit by Justino Vinson on 02/19/23 09:16 UA Bilirubin 0 mg/dL Last Edit by Justino Vinson on 02/19/23 09:16 UA Glucose 0 mg/dL Last Edit by Justino Vinson on 02/19/23 09:16 Results Reviewed Results Reviewed: Laboratory Last Values Urine pH (Auto) 6.0 02/19/23 09:05 Specific [place] (Auto) 1.025 02/19/23 09:05 Urine Protein (Auto) 15 mg/dL 02/19/23 09:05 Glucose (UA)(Auto) 0 mg/dL 02/19/23 09:05 Urine Ketones (Auto) Negative 02/19/23 09:05 Urine Blood (Auto) 10 Riaz/uL 02/19/23 09:05 Urine Nitrite (Auto) Negative 02/19/23 09:05 Urine Bilirubin (Auto) 0 mg/dL 02/19/23 09:05 Urine Urobilinogen (Auto) 0.2 mg/dL 02/19/23 09:05 Leukocyte Esterase (Auto) 0 Obey/uL 02/19/23 09:05 Assessment & Plan Assessment & Plan (1) Kidney stones: Code(s): N20.0 - Calculus of kidney Plan In office urinalysis results reviewed with the patient today; as noted above. Recent renal imaging results reviewed with the patient today; as noted above. Will obtain CT KUB for further assessment evaluation. Refill provided on urological medications. Patient reports to be happy with current voiding parameters. Follow-up in 1-2 weeks with imaging to be completed prior; or sooner with any issues, concerns, and or questions. Orders: Orders AMB Urinalysis Automated Today Z13.9 - Encounter for screening, unspecified CT kidney stone Today N20.0 - Calculus of kidney Medications: Refilled phenazopyridine (Pyridium) 100 mg PO TID 4 days PRN 12 tabs 0RF Spasm omeprazole 20 mg PO DAILY 30 caps 5RF hydromorphone (Dilaudid) Partial Fill upon patient request. 2 mg PO Q4-6H 7 days PRN 14 tabs 0RF pain (scale score 4-6) pyridoxine (vitamin B6) 100 mg (2 x 50 mg) PO DAILY 90 days 180 tabs 1RF N20.0 - Calculus of kidney tamsulosin 0.4 mg PO BEDTIME 14 days 14 caps 0RF Patient Instructions: The patient had an opportunity to ask questions regarding the treatment plan. All questions were answered. Physical exam, labs, and imaging were discussed and reviewed in detail. As well as risks, benefits, and discussion of treatment choices. No major barriers to understanding were identified. The patient expressed understanding and agreement with the above treatment plan. The patient was made aware they should contact our office by phone for worsening of their current condition, the appearance of new symptoms, or with any questio ns or concerns. Compliance is encouraged with any medications and follow up testing that is ordered. It is a privilege to be allowed the opportunity to participate in? your urological care.? Again, if you have any questions or concerns If you have any questions or concerns please do not hesitate to contact me. The office is [phone]. This note is constructed using voice recognition software. While every effort has been made to ensure accuracy information services manager errors may have been included. Yours sincerely, MARK Knight Coding Level of Care Code Est Pt Level 3 (08976) Diagnoses Kidney stones N20.0
== END 2023-02-19 09:48 | disposition home or self-care (01) ==
PROVIDERS: PCP Nurse Practitioner Family; Visit Provider Nurse Practitioner Family
DX: N20.0 Calculus of kidney (principal); Z13.9 Encounter for screening, unspecified
CPT/HCPCS: 99213

== ENCOUNTER 2023-02-23 13:55 | Outpatient (REF) | payer BC, SELFPAY ==
--- NOTE | ~2023-02-23 | CT_ITS ---
EXAMINATION: CT KIDNEY STONE CLINICAL INFORMATION: Calculus of kidney COMPARISON: TECHNIQUE: Continuous helical imaging obtained through the abdomen and pelvis without IV contrast. Reconstructed images in the coronal and sagittal planes. This CT examination was performed using dose optimization techniques as appropriate, variously including the following: *Automated exposure control *Adjustment of mA and/or kV according to patient size (this includes techniques or standardized protocols for targeted exams where dose is matched to indication/reason for exam; i.e. extremities or head) *Use of iterative reconstruction technique TOTAL EXAM DLP: 670 mGy-cm FINDINGS: Casting Technician: Right hemipelvic phlebolith. Hepatobiliary: Multiple too small to characterize hepatic hypodensities again seen. No intrahepatic or extrahepatic biliary ductal dilatation. The gallbladder is not visualized. Spleen is not enlarged. Probable small splenule. Pancreas and adrenal glands are unremarkable. Kidneys: Punctate calcifications identified in the right upper pole, left upper and lower poles. Slightly lobulated right kidney. Vague hypodensity midpole right kidney may correspond with cysts seen on 08/12/2022 ultrasound. No hydroureteronephrosis. Bladder: Under distended but unremarkable. Pelvic organs: Unremarkable. Phleboliths. Gastrointestinal: Unremarkable stomach. Nonobstructive bowel pattern. Normal-appearing appendix. Redundant sigmoid colon. No colonic pathology recognized. Vessels: Nonaneurysmal aorta with mild aortic calcifications. Normal caliber inferior vena cava. Lymph nodes: No pathologic lymphadenopathy. Abdominal wall: Rectus diastasis. No hernia. Bones and soft tissues: No change sclerotic focus left iliac bone. CT/CT kidney stone IMPRESSION: Punctate bilateral nonobstructing renal calculi. No hydroureteronephrosis. Multiple persistent too small to characterize hepatic hypodensities.
== END 2023-02-23 13:56 | disposition home or self-care (01) ==
LOC: HO.CT 13:55
PROVIDERS: PCP Nurse Practitioner Family; Visit Provider Nurse Practitioner Family
DX: N20.0 Calculus of kidney (principal)
CPT/HCPCS: 74176

== ENCOUNTER 2023-03-08 15:16 | Outpatient (AMB) | payer BC, SELFPAY ==
--- NOTE | 2023-03-08 15:19 | MHC.OFFVIS ---
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 Accompanied by: Self / Same As Patient Allergies cephalexin [CEPHALEXIN] Allergy (Severe, Verified 03/09/23 01:47) SWELLING clavulanic acid [From AUGMENTIN] Allergy (Severe, Verified 03/09/23 01:47) ANAPHYLAXIS clindamycin [CLINDAMYCIN] Allergy (Severe, Verified 03/09/23 01:47) TONGUE SWELLING codeine Allergy (Severe, Verified 03/09/23 01:47) PASSED OUT influenza virus vaccine, specific [FLU VACCINE] Allergy (Severe, Verified 03/09/23 01:47) ANAPHYLAXIS perflutren [From Definity] Allergy (Severe, Verified 03/09/23 01:47) hives/anaphylaxis seafood Allergy (Severe, Verified 03/09/23 01:47) Anaphylaxis fluconazole Allergy (Intermediate, Verified 03/09/23 01:47) HIVES gentamicin [GENTAMICIN] Allergy (Intermediate, Verified 03/09/23 01:47) RASH Iodinated Contrast Media [IV Contrast Dye] Allergy (Intermediate, Verified 03/09/23 01:47) Hives oxycodone Allergy (Intermediate, Verified 03/09/23 01:47) SOB sulfamethoxazole [From Bactrim] Allergy (Mild, Verified 03/09/23 01:47) swelling trimethoprim [From Bactrim] Allergy (Mild, Verified 03/09/23 01:47) swelling pineapple Allergy (Verified 03/09/23 01:47) Anaphylaxis scopolamine Adverse Reaction (Severe, Verified 03/09/23 01:47) Vomiting midazolam Adverse Reaction (Intermediate, Verified 03/09/23 01:47) Vomiting Medication List - Last Reconciled 03/09/23 by MARK Knight albuterol sulfate 90 mcg/actuation 2 puffs inhalation Q4H PRN diltiazem HCl 120 mg PO BID epinephrine 0.3 mL IM ONCE PRN hydromorphone (Dilaudid) 2 mg PO Q4-6H PRN 7 days ibuprofen 800 mg PO Q8H PRN lorazepam 0.5 mg PO DAILY PRN losartan 50 mg PO DAILY meclizine 1 tab PO TID PRN omeprazole 20 mg PO DAILY ondansetron 4 mg PO Q8H 3 days phenazopyridine (Pyridium) 100 mg PO TID PRN 4 days potassium citrate ER 20 mEq PO DAILY pyridoxine (vitamin B6) 100 mg (2 x 50 mg) PO DAILY 90 days tamsulosin 0.4 mg PO BEDTIME 14 days tramadol 50 mg PO DAILY PRN HPI HPI Comments History of Present Illness Details Patti is a 48 year old female patient of Dr Dao. She has a past medical history of liver cysts, UTI, nonalcoholic fatty liver disease, hypertension, nonsustained ventricular tachycardia, kidney stones, and complex renal cyst. She presents to the office today for follow-up of her nephrolithiasis and complex renal cyst. Of note, patient was seen approximately 3 weeks ago at which time a CT KUB was ordered for further assessment evaluation as patient with previous renal ultrasound from [facility] noting increased stone burden and patient had been experiencing flank pain. These results were reviewed with the patient today. Punctate calcifications identified in the right upper pole, left upper pole and lower poles. Slightly lobulated right kidney. Vague hypodensity mid pole right kidney may correspond with cysts seen on 08/12/2022 ultrasound. No hydroureteronephrosis noted. The bladder is undistended but unremarkable. When asked patient does report feeling flank pain she had been experiencing has somewhat subsided. She does report having completed Flomax as prescribed. She currently denies any bothersome urinary issues or concerns. She discusses her upcoming urogynocological procedure she is having with bladder sling in the next few weeks. When asked she denies urinary urgency, urinary frequency, incontinence, nocturia, hematuria, dysuria, foul smelling urine, changes to urinary stream, flank pain, fever, and or chills. She is happy with her current voiding parameters. She continues with potassium citrate and vitamin B6 as well as drinking increased amounts of water daily. She has a PMH of multiple surgical stone interventions in the past including ureteroscopy and ESWL. [facility] Medical History History of COVID-19 Post-operative nausea and vomiting NAFLD (nonalcoholic fatty liver disease) Morbid obesity with BMI of 40.0-44.9, adult H/O ganglion cyst Essential hypertension NSVT (nonsustained ventricular tachycardia) Vertigo Kidney stones Migraine Carotid artery disease Fibromyalgia HTN (hypertension) Asthma PAC (premature atrial contraction) PVC (premature ventricular contraction) Surgical History History of endometrial ablation Hx of cystoscopy Hx of lithotripsy H/O esophagogastroduodenoscopy H/O colonoscopy History of partial hysterectomy Family History Father Skin cancer Cardiovascular disease Myocardial infarction Hypertension IBS (irritable bowel syndrome) Mother Hypertension Sister Myocardial infarction Hypertension Heartburn Paternal Uncle Colon cancer Paternal Grandmother Colon cancer Social History Household Members: Children Housing: Apartment Do you presently have visiting nurse or other home services: No Alcohol intake: current Alcohol intake frequency: does not drink Patient Tobacco Use Status: Never used Tobacco Second Hand Smoke Exposure: No Advance Directives Date on File: 08/21/21 service: No Current occupational status: employed Review of Systems Const Reports no additional complaints Eyes Reports no additional complaints ENT Reports no additional complaints Card Reports as per HPI Resp Reports no additional complaints GI Reports as per HPI Reports as per HPI Musc Reports no additional complaints Neuro Reports no additional complaints Psych Reports no additional complaints Endo Reports no additional complaints Leo/Lymph Reports no additional complaints Aller/Immun Reports no additional complaints Physical Exam Const General: cooperative, healthy appearing, comfortable, no acute distress, well developed, alert and awake Orientation/consciousness: patient oriented x3 HEENT Head: Yes normal to inspection, Yes normocephalic and Yes atraumatic Eyes General: appearance normal, both eyes and all related structures Neck Neck: Yes normal visual inspection and Yes trachea midline Chest Chest palpation & inspection: normal inspection of the chest Resp Effort & Inspection: normal respiratory effort and able to speak in complete sentences Cardio Rate: regular rate GI Inspection: Yes normal to inspection General: Yes no CVA tenderness Back/Spine/Pelvis Back: no CVA tenderness Skin General skin exam: no rashes or lesions noted Neuro General: patient oriented x3 Extrem General: Yes normal to inspection Psych Appearance: grossly normal and well kempt Mental Status: mental status grossly normal Speech and movement: Normal speech and movement present and Clear speech present Affect: normal affect Attitude: cooperative Thought process: Normal thought process present Thought content: Normal thought content present Insight: Fair insight present (Psych) Judgement: Fair judgement present (Psych) Results Reviewed Results Reviewed: Date of Service: 02/23/23 EXAMINATION: CT KIDNEY STONE FINDINGS: 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 Hepatobiliary: Multiple too small to characterize hepatic hypodensities again seen. No intrahepatic or extrahepatic biliary ductal dilatation. The gallbladder is not visualized. Spleen is not enlarged. Probable small splenule. Pancreas and adrenal glands are unremarkable. Kidneys: Punctate calcifications identified in the right upper pole, left upper and lower poles. Slightly lobulated right kidney. Vague hypodensity midpole right kidney may correspond with cysts seen on 08/12/2022 ultrasound. No hydroureteronephrosis. Bladder: Under distended but unremarkable. Pelvic organs: Unremarkable. Phleboliths. Gastrointestinal: Unremarkable stomach. Nonobstructive bowel pattern. Normal-appearing appendix. Redundant sigmoid colon. No colonic pathology recognized. Vessels: Nonaneurysmal aorta with mild aortic calcifications. Normal caliber inferior vena cava. Lymph nodes: No pathologic lymphadenopathy. Abdominal wall: Rectus diastasis. No hernia. Bones and soft tissues: No change sclerotic focus left iliac bone. IMPRESSION: Punctate bilateral nonobstructing renal calculi. No hydroureteronephrosis. Multiple persistent too small to characterize hepatic hypodensities. Assessment & Plan Assessment & Plan (1) Kidney stones: Code(s): N20.0 - Calculus of kidney (2) Complex renal cyst: Code(s): N28.1 - Cyst of kidney, acquired Plan In office urinalysis results reviewed with the patient today; as noted above. Recent CT results reviewed with the patient today; as noted above. Patient currently denies any bothersome urinary issues or concerns. Continue vitamin B6 and potassium citrate as discussed and prescribed. Continue drinking plenty of water daily. Continue adding 1 oz of lemon juice to water daily. Will obtain renal ultrasound in 6 months. Follow-up in 6 months with imaging to be completed prior; or sooner with any issues, concerns, and or questions. Orders: Orders US renal BI 6 Months N20.0 - Calculus of kidney AMB Urinalysis Automated 03/08/23 Z13.9 - Encounter for screening, unspecified Patient Instructions: The patient had an opportunity to ask questions regarding the treatment plan. All questions were answered. Physical exam, labs, and imaging were discussed and reviewed in detail. As well as risks, benefits, and discussion of treatment choices. No major barriers to understanding were identified. The patient expressed understanding and agreement with the above treatment plan. The patient was made aware they should contact our office by phone for worsening of their current condition, the appearance of new symptoms, or with any questions or concerns. Compliance is encouraged with any medications and follow up testing that is ordered. It is a privilege to be allowed the opportunity to participate in? your urological care.? Again, if you have any questions or concerns If you have any questions or concerns please do not hesitate to contact me. The office is [phone]. This note is constructed using voice recognition software. While every effort has been made to ensure accuracy manufacturing systems engineer errors may have been included. Yours sincerely, MARK Knight Coding Level of Care Code Est Pt Level 3 (86054) Diagnoses Kidney stones N20.0 Complex renal cyst N28.1
== END 2023-03-08 15:52 | disposition home or self-care (01) ==
PROVIDERS: PCP Nurse Practitioner Family; Visit Provider Nurse Practitioner Family
DX: N20.0 Calculus of kidney (principal); N28.1 Cyst of kidney, acquired
CPT/HCPCS: 99213

== ENCOUNTER → 2023-03-08 15:16 | Outpatient (BNVA) | payer BC, SELFPAY | PROVIDERS: PCP Nurse Practitioner Family; Visit Provider Nurse Practitioner Family ==

== ENCOUNTER 2023-04-16 09:04 | Outpatient (AMB) | payer BC, SELFPAY ==
--- NOTE | 2023-04-16 09:07 | A.OFFVIS_ITS ---
Intake Vital Signs 04/16/23 09:20 Height 55 ft 2 in Weight 202 lb BMI 0.3 BP 141/81 H Blood Pressure Location Lt brachial Position Sitting Pulse 9 L Intake Visit Reasons: 6 month breast exam Intake Note: Patient is seen in office for 6 month follow up visit, breast exam. Pt c/o: denies any concerns or changes since last visit mm:12/01/22 Allergies cephalexin [CEPHALEXIN] Allergy (Severe, Verified 04/16/23 09:07) SWELLING clavulanic acid [From AUGMENTIN] Allergy (Severe, Verified 04/16/23 09:07) ANAPHYLAXIS clindamycin [CLINDAMYCIN] Allergy (Severe, Verified 04/16/23 09:07) TONGUE SWELLING codeine Allergy (Severe, Verified 04/16/23 09:07) PASSED OUT influenza virus vaccine, specific [FLU VACCINE] Allergy (Severe, Verified 04/16/23 09:07) ANAPHYLAXIS perflutren [From Definity] Allergy (Severe, Verified 04/16/23 09:07) hives/anaphylaxis seafood Allergy (Severe, Verified 04/16/23 09:07) Anaphylaxis fluconazole Allergy (Intermediate, Verified 04/16/23 09:07) HIVES gentamicin [GENTAMICIN] Allergy (Intermediate, Verified 04/16/23 09:07) RASH Iodinated Contrast Media [IV Contrast Dye] Allergy (Intermediate, Verified 04/16/23 09:07) Hives oxycodone Allergy (Intermediate, Verified 04/16/23 09:07) SOB sulfamethoxazole [From Bactrim] Allergy (Mild, Verified 04/16/23 09:07) swelling trimethoprim [From Bactrim] Allergy (Mild, Verified 04/16/23 09:07) swelling pineapple Allergy (Verified 04/16/23 09:07) Anaphylaxis scopolamine Adverse Reaction (Severe, Verified 04/16/23 09:07) Vomiting midazolam Adverse Reaction (Intermediate, Verified 04/16/23 09:07) Vomiting Medication List - Last Reconciled 04/16/23 by Drew Martinez MD albuterol sulfate 90 mcg/actuation 2 puffs inhalation Q4H PRN diltiazem HCl 120 mg PO BID epinephrine 0.3 mL IM ONCE PRN hydromorphone (Dilaudid) 2 mg PO Q4-6H PRN 7 days ibuprofen 800 mg PO Q8H PRN lorazepam 0.5 mg PO DAILY PRN losartan 50 mg PO DAILY meclizine 1 tab PO TID PRN omeprazole 20 mg PO DAILY ondansetron 4 mg PO Q8H 3 days phenazopyridine (Pyridium) 100 mg PO TID PRN 4 days potassium citrate ER 20 mEq PO DAILY pyridoxine (vitamin B6) 100 mg (2 x 50 mg) PO DAILY 90 days HPI HPI Comments History of Present Illness Details 48-year-old female patient returning for a follow-up high risk breast cancer screening. She has a strong family history of cancer including a maternal aunt diagnosed in her 40s, a maternal cousin diagnosed with breast cancer at the age of 33, and maternal grandmother with ovarian cancer at the age of 50, a paternal grandmother and paternal uncle with colon cancer, and a paternal uncle with pancreatic cancer in his 40s. Her Caroline model calculation indicated of lifetime risk of breast cancer at 36% and the Tyrer-Cuzick score revealed a lifetime risk of 25.4% she has been undergoing annual mammography but because of allergic reaction to the dye, she is unable to have a breast MRI. As a replacement she is undergoing screening bilateral ultrasounds. She was initially evaluated by Dr. Swanson on 03/17/2018. She subsequently underwent genetic testing which revealed no deleterious mutations identified. Two variance of uncertain significance 1 in the MSH3 and another in the NTHL1 foci. She reports Bilateral breast pain which seem to associated with increased stress in her life. This pain is subsequently resolved after several weeks and she is now pain-free. She denies nipple discharge, palpable mass, skin changes, or enlarged lymph nodes. Mammogram obtained on 12/01/2022 revealed no mammographic evidence of malignancy (BI-RADS 2). Bilateral screening ultrasounds were also performed on 11/27/2021 and revealed benign findings ( BI- RADS 1). She is due for a screening bilateral ultrasound next month. [facility] Medical History History of COVID-19 Post-operative nausea and vomiting NAFLD (nonalcoholic fatty liver disease) Morbid obesity with BMI of 40.0-44.9, adult H/O ganglion cyst Essential hypertension NSVT (nonsustained ventricular tachycardia) Vertigo Kidney stones Migraine Carotid artery disease Fibromyalgia HTN (hypertension) Asthma PAC (premature atrial contraction) PVC (premature ventricular contraction) Surgical History History of endometrial ablation Hx of cystoscopy Hx of lithotripsy H/O esophagogastroduodenoscopy H/O colonoscopy History of partial hysterectomy Family History Father Skin cancer Cardiovascular disease Myocardial infarction Hypertension IBS (irritable bowel syndrome) Mother Hypertension Sister Myocardial infarction Hypertension Heartburn Paternal Uncle Colon cancer Paternal Grandmother Colon cancer Social History Household Members: Children Housing: Apartment Do you presently have visiting nurse or other home services: No Alcohol intake: current Alcohol intake frequency: does not drink Patient Tobacco Use Status: Never used Tobacco Second Hand Smoke Exposure: No Advance Directives Date on File: 08/21/21 service: No Current occupational status: employed Review of Systems Const All systems reviewed & are unremarkable except as noted in HPI and below Card Reports irregular heart rhythm Denies nipple discharge Skin/Breast Denies breast swelling, Denies breast skin changes, Denies breast pain, Denies breast mass, Denies change in breast shape and Denies nipple discharge Leo/Lymph Denies lymphadenopathy Physical Exam Vital Signs: BMI result Body Mass Index 0.3 Const General: well developed Nutritional Appearance: well nourished Orientation/consciousness: patient oriented x3 Limitations: no limitations HEENT Head: Yes normocephalic and Yes atraumatic Neck Neck: Yes no lymphadenopathy, Yes trachea midline and Yes no JVD Chest Other: Left breast: No skin change, no nipple retraction, no nipple discharge, no palpable mass, no enlarged lymph nodes. Mild fibrocystic pattern especially in the upper outer quadrant . Right breast: No skin change, no nipple retraction, no nipple discharge, no palpable mass, no enlarged lymph nodes. Mild fibrocystic pattern especially in the upper outer quadrant. Resp Effort & Inspection: normal respiratory effort, no audible wheezes and no cough GI Inspection: Yes normal to inspection Skin General skin exam: no rashes or lesions noted Neuro General: patient oriented x3 Extrem General: Yes no clubbing, cyanosis or edema Assessment & Plan Assessment & Plan (1) Bilateral mastodynia: Code(s): N64.4 - Mastodynia (2) Family history of breast cancer: Code(s): Z80.3 - Family history of malignant neoplasm of breast (3) At high risk for breast cancer: Code(s): Z91.89 - Other specified personal risk factors, not elsewhere classified Plan 48-year-old female patient returning for a high risk breast examination due to a strong family history for breast cancer. Her genetic testing is negative for deleterious mutations and she denies any new symptoms since her last visit. Her most recent mammogram of 12/01/2022 revealed no mammographic evidence of malignancy (BI-RADS 2). Screening ultrasounds of bilateral breasts on 11/27/2021 revealed no suspicious findings ( BI-RADS 1). Examination today reveals no suspicious findings in either breast other than fibrocystic change bilaterally. I will request screening ultrasounds for next month. She will follow-up in 6 months, sooner p.r.n.. Coding Level of Care Code Est Pt Level 3 (09295) Diagnoses Bilateral mastodynia N64.4 Family history of breast cancer Z80.3 At high risk for breast cancer Z91.89
[2023-04-16 09:20] VITALS: BP 141/81; PULSE 9
== END 2023-04-16 09:22 | disposition home or self-care (01) ==
PROVIDERS: PCP Nurse Practitioner Family; Visit Provider Surgery
DX: N64.4 Mastodynia (principal); Z80.3 Family history of malignant neoplasm of breast; Z91.89 Other specified personal risk factors, not elsewhere classified
CPT/HCPCS: 99213

== ENCOUNTER → 2023-04-16 09:04 | Outpatient (BNVA) | payer BC, SELFPAY | PROVIDERS: PCP Nurse Practitioner Family; Visit Provider Surgery ==

== ENCOUNTER 2023-04-23 08:01 | Day surgery (SDC) | payer BC, SELFPAY ==
--- NOTE | 2023-04-21 10:18 | HO.ANESPROP2 ---
Documented by User: Ling Ruelas NP 04/21/23 10:24 HPI - Anesthesia Eval Consult details Narrative: 48yo F for Upper Endoscopy s/p EGD and colonoscopy 10/2022 with MAC *Multiple Allergies* Yearly cardiology office visits - last 11/2021 - stable s/p hysterectomy PMFSH Active Problems Active Problems: All Active Problems (Updated 10/20/22 @ 10:54 by Nanci Ochoa PA-C) Fundic gland polyps of stomach, benign (Acute) Diverticulosis (Acute) Sessile serrated polyp of colon (Acute) Complex renal cyst (Acute) Kidney stones (Acute) Rectal bleeding (Acute) Liver cyst (Acute) UTI (urinary tract infection) (Acute) Pain in right lower leg (Acute) Bilateral mastodynia (Acute) Right kidney stone (Acute) Flank pain (Acute) NAFLD (nonalcoholic fatty liver disease) (Acute) Morbid obesity with BMI of 40.0-44.9, adult (Acute) Essential hypertension (Acute) PAC (premature atrial contraction) (Acute) NSVT (nonsustained ventricular tachycardia) (Acute) Past Medical History Medical History History of COVID-19 Post-operative nausea and vomiting NAFLD (nonalcoholic fatty liver disease) Morbid obesity with BMI of 40.0-44.9, adult H/O ganglion cyst Essential hypertension NSVT (nonsustained ventricular tachycardia) Vertigo Kidney stones Migraine Carotid artery disease Fibromyalgia HTN (hypertension) Asthma PAC (premature atrial contraction) PVC (premature ventricular contraction) Family History Family History Father Skin cancer Cardiovascular disease Myocardial infarction Hypertension IBS (irritable bowel syndrome) Mother Hypertension Sister Myocardial infarction Hypertension Heartburn Paternal Uncle Colon cancer Paternal Grandmother Colon cancer Family history of problems with anesthesia: Yes (PONV) Surgical History Surgical History History of endometrial ablation Hx of cystoscopy Hx of lithotripsy H/O esophagogastroduodenoscopy H/O colonoscopy History of partial hysterectomy History of Problems with Anesthesia: Yes (PONV) Social History Social History Household Members: Children Housing: Apartment Do you presently have visiting nurse or other home services: No Alcohol intake: current Alcohol intake frequency: 0-2 drinks per day Patient Tobacco Use Status: Never used Tobacco Second Hand Smoke Exposure: No Use of substances other than those prescribed or required for medical reasons: No Have you been hit, kicked, punched, or otherwise hurt by someone within the past year? If so, by whom?: No Are you DNR?: No Advance Directives: No Advance Directives Information Provided: Yes Advance Directives Date on File: 08/21/21 Recently lost weight without trying: No Eating poorly because of decreased appetite: No Nutrition Risks: No Nutritional Risk Patient : No service: No Current occupational status: employed Meds Allergies Allergy/AdvReac Type Severity Reaction Status Date / Time cephalexin [CEPHALEXIN] Allergy Severe SWELLING Verified 04/16/23 09:07 clavulanic acid Allergy Severe ANAPHYLAXIS Verified 04/16/23 09:07 [From AUGMENTIN] clindamycin [CLINDAMYCIN] Allergy Severe TONGUE Verified 04/16/23 09:07 SWELLING codeine Allergy Severe PASSED OUT Verified 04/16/23 09:07 influenza virus vaccine, Allergy Severe ANAPHYLAXIS Verified 04/16/23 09:07 specific [FLU VACCINE] perflutren [From Definity] Allergy Severe hives/anaph Verified 04/16/23 09:07 ylaxis seafood Allergy Severe Anaphylaxis Verified 04/16/23 09:07 fluconazole Allergy Intermediate HIVES Verified 04/16/23 09:07 gentamicin [GENTAMICIN] Allergy Intermediate RASH Verified 04/16/23 09:07 Iodinated Contrast Media Allergy Intermediate Hives Verified 04/16/23 09:07 [IV Contrast Dye] oxycodone Allergy Intermediate SOB Verified 04/16/23 09:07 sulfamethoxazole Allergy Mild swelling Verified 04/16/23 09:07 [From Bactrim] trimethoprim [From Bactrim] Allergy Mild swelling Verified 04/16/23 09:07 pineapple Allergy Anaphylaxis Verified 04/16/23 09:07 scopolamine AdvReac Severe Vomiting Verified 04/16/23 09:07 midazolam AdvReac Intermediate Vomiting Verified 04/16/23 09:07 Home Medications Medication Instructions Recorded Confirmed Last Taken Type meclizine 12.5 mg tablet 1 tab PO TID PRN Vertigo 06/18/20 04/16/23 Unknown History losartan 50 mg tablet 50 mg PO DAILY 04/24/22 04/16/23 Unknown History albuterol sulfate 90 mcg/actuation 2 puff inhalation Q4H PRN wheezing 08/06/22 04/16/23 Unknown History aerosol inhaler epinephrine 0.3 mg/0.3 mL 0.3 ml IM ONCE PRN 08/19/22 04/16/23 Unknown History injection, auto-injector ibuprofen 800 mg tablet 800 mg PO Q8H PRN 08/19/22 04/16/23 Unknown History lorazepam 0.5 mg tablet 0.5 mg PO DAILY PRN 08/19/22 04/16/23 Unknown History potassium citrate 10 mEq (1,080 20 meq PO DAILY 08/19/22 04/16/23 Unknown History mg) tablet,extended release Exam Narrative Narrative: Holter 10/2022 Conclusion: 1. Patient was monitored for total period of 3 days and 20 minutes 2. Baseline was normal sinus rhythm with average heart rate of 84 beats per minute 3. No significant pauses noted 4. Rare ectopy noted 5. No patient reported events EKG 07/2022 Vent. Rate : 069 BPM Atrial Rate : 069 BPM P-R Int : 150 ms QRS Dur : 078 ms QT Int : 410 ms P-R-T Axes : 038 005 -02 degrees QTc Int : 439 ms Normal sinus rhythm Minimal voltage criteria for LVH, may be normal variant ( R in aVL ) Nonspecific ST abnormality Abnormal ECG When compared with ECG of 20-DEC-2021 11:26, No significant change was found Per 11/2021 cardiology office visit:: 30 day event monitor- average heart rate 90/Min but several episodes sinus tachycardia; there were also atrial ectopics;? premature ventricular contractions, some couplets and 1 episode of what appeared to be NSVT for 19 beats.? She did feel the episode of NSVT.? Echocardiogram without any evidence of structural heart disease.? In the exercise stress test, she was able to do 5 minutes and 47 seconds on Ridge protocol and reached 91% of max predicted heart rate with some shortness of breath, but no other symptoms and isolated PACs but no SVT.? Coronary calcium scoring-0. Overall, she has some degree of sinus tachycardia which could be from deconditioning, inappropriate sinus tachycardia, in some combination.? The NSVT episode itself was isolated and nothing recurrent has been shown.? There is no evidence of any cardiomyopathy.? Assessment and Plan Assessment Anesthesia Assessment: Chart Reviewed Final Anesthetic Review Family History of Problems with Anesthesia: Yes (PONV) History of Problems with Anesthesia: Yes (PONV) Documented by User: Concha Dyson MD 04/23/23 08:49 [facility] Past Medical History Medical History History of COVID-19 Post-operative nausea and vomiting NAFLD (nonalcoholic fatty liver disease) Morbid obesity with BMI of 40.0-44.9, adult H/O ganglion cyst Essential hypertension NSVT (nonsustained ventricular tachycardia) Vertigo Kidney stones Migraine Carotid artery disease Fibromyalgia HTN (hypertension) Asthma PAC (premature atrial contraction) PVC (premature ventricular contraction) Family History Family History Father Skin cancer Cardiovascular disease Myocardial infarction Hypertension IBS (irritable bowel syndrome) Mother Hypertension Sister Myocardial infarction Hypertension Heartburn Paternal Uncle Colon cancer Paternal Grandmother Colon cancer Surgical History Surgical History History of endometrial ablation Hx of cystoscopy Hx of lithotripsy H/O esophagogastroduodenoscopy H/O colonoscopy History of partial hysterectomy Social History Social History Household Members: Children Housing: Apartment Do you presently have visiting nurse or other home services: No Alcohol intake: current Alcohol intake frequency: 0-2 drinks per day Patient Tobacco Use Status: Never used Tobacco Second Hand Smoke Exposure: No Use of substances other than those prescribed or required for medical reasons: No Have you been hit, kicked, punched, or otherwise hurt by someone within the past year? If so, by whom?: No Are you DNR?: No Advance Directives: No Advance Directives Information Provided: Yes Advance Directives Date on File: 08/21/21 Recently lost weight without trying: No Eating poorly because of decreased appetite: No Nutrition Risks: No Nutritional Risk Patient : No service: No Current occupational status: employed Meds Allergies Allergy/AdvReac Type Severity Reaction Status Date / Time cephalexin [CEPHALEXIN] Allergy Severe SWELLING Verified 04/16/23 09:07 clavulanic acid Allergy Severe ANAPHYLAXIS Verified 04/16/23 09:07 [From AUGMENTIN] clindamycin [CLINDAMYCIN] Allergy Severe TONGUE Verified 04/16/23 09:07 SWELLING codeine Allergy Severe PASSED OUT Verified 04/16/23 09:07 influenza virus vaccine, Allergy Severe ANAPHYLAXIS Verified 04/16/23 09:07 specific [FLU VACCINE] perflutren [From Definity] Allergy Severe hives/anaph Verified 04/16/23 09:07 ylaxis seafood Allergy Severe Anaphylaxis Verified 04/16/23 09:07 fluconazole Allergy Intermediate HIVES Verified 04/16/23 09:07 gentamicin [GENTAMICIN] Allergy Intermediate RASH Verified 04/16/23 09:07 Iodinated Contrast Media Allergy Intermediate Hives Verified 04/16/23 09:07 [IV Contrast Dye] oxycodone Allergy Intermediate SOB Verified 04/16/23 09:07 sulfamethoxazole Allergy Mild swelling Verified 04/16/23 09:07 [From Bactrim] trimethoprim [From Bactrim] Allergy Mild swelling Verified 04/16/23 09:07 pineapple Allergy Anaphylaxis Verified 04/16/23 09:07 scopolamine AdvReac Severe Vomiting Verified 04/16/23 09:07 midazolam AdvReac Intermediate Vomiting Verified 04/16/23 09:07 Home Medications Medication Instructions Recorded Confirmed Last Taken Type meclizine 12.5 mg tablet 1 tab PO TID PRN Vertigo 06/18/20 04/16/23 Unknown History losartan 50 mg tablet 50 mg PO DAILY 04/24/22 04/16/23 Unknown History albuterol sulfate 90 mcg/actuation 2 puff inhalation Q4H PRN wheezing 08/06/22 04/16/23 Unknown History aerosol inhaler epinephrine 0.3 mg/0.3 mL 0.3 ml IM ONCE PRN 08/19/22 04/16/23 Unknown History injection, auto-injector ibuprofen 800 mg tablet 800 mg PO Q8H PRN 08/19/22 04/16/23 Unknown History lorazepam 0.5 mg tablet 0.5 mg PO DAILY PRN 08/19/22 04/16/23 Unknown History potassium citrate 10 mEq (1,080 20 meq PO DAILY 08/19/22 04/16/23 Unknown History mg) tablet,extended release Exam Airway Mallampati Class: II TM Dist: >3cm Neck ROM: Full Loose/Missing/Broken Teeth: No Heart: RRR Lungs: CTA Assessment and Plan Assessment Anesthesia Assessment: Anesthesia Plan Discussed Final Anesthetic Review NPO: Yes ASA Class: II Final Preanesthetic Review: Meds/Allgs Chart Reviewed, Consent Obtained/Reviewed and Anes Risks/Benef Reviewed Patient Risk: Low Procedure Risk: Intermediate Anesthetic Plan Anesthetic Plan: MAC: Disposition: Standard PACU
--- NOTE | 2023-04-23 08:07 | MHC.SHP ---
Pre-Procedural Eval Section A Date of Service: 04/23/23 The patient is an INPATIENT: No The History & Physical has been completed within 30 days and I have reviewed it.: No Section B Chief Complaint: FU of gastric polyp Relevant Family History (Specify if Yes): Yes Relevant Social History: None Present Medications: see Short Stay Collaborative assessment Medical History: Significant History History of Previous Operations: Relevant previous surgery/procedure and date(s) (H/O colonoscopy H/O esophagogastroduodenoscopy History of endometrial ablation History of partial hysterectomy Hx of cystoscopy Hx of lithotripsy) Allergies: Allergies Allergy/AdvReac Type Severity Reaction Status Date / Time cephalexin [CEPHALEXIN] Allergy Severe SWELLING Verified 04/16/23 09:07 clavulanic acid Allergy Severe ANAPHYLAXIS Verified 04/16/23 09:07 [From AUGMENTIN] clindamycin [CLINDAMYCIN] Allergy Severe TONGUE Verified 04/16/23 09:07 SWELLING codeine Allergy Severe PASSED OUT Verified 04/16/23 09:07 influenza virus vaccine, Allergy Severe ANAPHYLAXIS Verified 04/16/23 09:07 specific [FLU VACCINE] perflutren [From Definity] Allergy Severe hives/anaph Verified 04/16/23 09:07 ylaxis seafood Allergy Severe Anaphylaxis Verified 04/16/23 09:07 fluconazole Allergy Intermediate HIVES Verified 04/16/23 09:07 gentamicin [GENTAMICIN] Allergy Intermediate RASH Verified 04/16/23 09:07 Iodinated Contrast Media Allergy Intermediate Hives Verified 04/16/23 09:07 [IV Contrast Dye] oxycodone Allergy Intermediate SOB Verified 04/16/23 09:07 sulfamethoxazole Allergy Mild swelling Verified 04/16/23 09:07 [From Bactrim] trimethoprim [From Bactrim] Allergy Mild swelling Verified 04/16/23 09:07 pineapple Allergy Anaphylaxis Verified 04/16/23 09:07 scopolamine AdvReac Severe Vomiting Verified 04/16/23 09:07 midazolam AdvReac Intermediate Vomiting Verified 04/16/23 09:07 Review of Systems Sugical H&P ROS: Negative: Constitution, Cardiovascular, Respiratory and Gastrointestinal Exam Surgical H&P Exam: Normal: Heart, Normal: Lungs, Normal: Extremities and Normal: Abdomen Plan Diagnosis/Plan: Unchanged (EGD added per pt request) I have reviewed the history and physical and performed a pertinent physical examination on my patient. No changes have occurred unless specified. Time Spent With Patient Time: Total time managing care of this patient today ____ minutes.
[2023-04-23 08:30] VITALS: BP 119/77; PULSE 91; RESP 18; TEMP 36.6; O2SAT 97; BMI 36.9
[2023-04-23] MEDS: Lactated Ringers 1,000 ML 100 ML IVCONT (08:35)
--- NOTE | 2023-04-23 09:29 | W.PM.OPN ---
Operative Note Operative Note Date of Service: 04/23/23 Narrative: FLEXIBLE TRANSORAL UPPER GASTROINTESTINAL ENDOSCOPY WITH SNARE POLYPECTOMY Pre-op diagnosis: Follow-up of gastric polyp with adenomatous change Post-op diagnosis: Multiple gastric polyps Endoscopist:? Hiral Millard MD Anesthesia:?MAC Consent: Indications for the procedure and potential complications of bleeding, perforation, reaction to medications and missed diagnosis were discussed with the patient and informed consent was obtained. Instrument: Olympus GIF H 190 mid size upper endoscope Monitoring: Vital signs and clinical assessment, continuous EKG monitoring, Pulse oximetry, Carbon Dioxide monitoring and blood pressure monitoring were done throughout the procedure. Procedure: The patient was placed in the left lateral decubitis position and pre-procedure medications were administered and a bite block was placed. The endoscope was inserted into the mouth and advanced under direct vision to the third part of duodenum. A careful inspection was made as the upper endoscope was withdrawn including a retroflexed examination of the proximal stomach; Findings and interventions are described below. Findings: Larynx: Normal Esophagus: GE junction at 36 cms. No esophagitis or Marinelli's. Stomach: Multiple 5 to 12 mm benign appearing polyps in the gastric body - seven of the larger polyps were removed with a cold snare. Minor bleeding from one of the polypectomy sites - controlled with placement of a hemoclip Grade 2 flap valve on retroflexed examination of the cardia. Duodenum: Normal bulb and descending duodenum Intervention: Snare polypectomy of gastric polyps as noted above Impression and Post Procedure Diagnosis: Endoscopy Findings: STOMACH: Multiple 5 to 10 mm benign appearing polyps in the gastric body - seven of the larger polyps were removed with a cold snare. Plan: Await pathology results. If biopsies show adenomatous polyps, schedule a FU EGD in 1 year. Patient has an appointment on 05/13/23 in the GI Clinic with BRITNEY Navarro. Above findings were reviewed with the patient Gastric Polyps handout was given in the discharge area
[2023-04-23 09:30] VITALS: BP 97/59; PULSE 95; RESP 18; TEMP 36.2; O2SAT 99
[2023-04-23 09:45] VITALS: BP 129/87; PULSE 93; RESP 18; TEMP 36.4; O2SAT 100
== END 2023-04-23 10:01 | disposition home or self-care (01) ==
PROVIDERS: PCP Nurse Practitioner Family; Visit Provider Internal Medicine Gastroenterology
PROC: 0DJ08ZZ Inspection of Upper Intestinal Tract, Via Natural or Artificial Opening Endoscopic (ICD-10-PCS; CPT 43235; principal; 2023-04-23 09:00)
DX: D13.1 Benign neoplasm of stomach (principal); Z86.010 Personal history of colon polyps; K76.0 Fatty (change of) liver, not elsewhere classified; I10 Essential (primary) hypertension; M79.7 Fibromyalgia; I25.10 Atherosclerotic heart disease of native coronary artery without angina pectoris; I49.1 Atrial premature depolarization; E66.9 Obesity, unspecified; Z68.35 Body mass index [BMI] 35.0-35.9, adult; Z87.442 Personal history of urinary calculi; Z79.899 Other long term (current) drug therapy
CPT/HCPCS: 43251; 88305; 88342; J2704

== ENCOUNTER → 2023-04-23 08:01 | Outpatient (BNV) | payer BC, SELFPAY | PROVIDERS: PCP Nurse Practitioner Family; Visit Provider Internal Medicine Gastroenterology | DX: K31.7 Polyp of stomach and duodenum (principal) | CPT/HCPCS: 43251 ==

== ENCOUNTER 2023-05-03 11:45 | Outpatient (REF) | payer BC, SELFPAY ==
--- NOTE | ~2023-05-03 | US_ITS ---
EXAMINATION: US SCREENING ULTRASOUND BREAST, BILATERAL CLINICAL INFORMATION: Supplemental screening for elevated risk of development of breast cancer based on family history. TECHNIQUE: Ultrasound of the both breasts and axillae are performed with real-time edward scale imaging and color Doppler. FINDINGS: There is no focal suspicious finding. There is no solid mass, architectural abnormality, duct ectasia, or edema in the soft tissue planes. US/US breast LT complete mammo IMPRESSION: Normal sonography of both breasts. ASSESSMENT: BI-RADS 1 - Negative RECOMMENDATION: 1 year F/U This patient's information was entered into a reminder system with a target due date for their next mammogram
== END 2023-05-03 11:46 | disposition home or self-care (01) ==
LOC: HO.MAMMO 11:45
PROVIDERS: PCP Nurse Practitioner Family; Visit Provider Surgery
DX: Z91.89 Other specified personal risk factors, not elsewhere classified (principal); Z80.3 Family history of malignant neoplasm of breast
CPT/HCPCS: 76641

== ENCOUNTER → 2023-05-03 12:00 | Outpatient (BNV) | payer BC, SELFPAY | PROVIDERS: PCP Nurse Practitioner Family; Visit Provider Radiology Diagnostic Radiology | DX: Z80.3 Family history of malignant neoplasm of breast (principal) | CPT/HCPCS: 76641 ==

== ENCOUNTER 2023-06-28 08:24 | Outpatient (AMB) | payer BC, SELFPAY ==
--- NOTE | 2023-06-28 08:28 | MHC.OFFVIS ---
Intake Vital Signs 06/28/23 08:30 Height 5 ft 2 in Weight 202 lb 13.204 oz BMI 37.1 BP 133/80 Blood Pressure Location Rt brachial Position Sitting Pulse 87 Intake Visit Reasons: follow up from upper endoscopy Intake Note: Patti presents in the office as a follow up EGD. CC: She states that there is still a polyp in her GB that is still not addressed and she states that there is a metal clip that was left. She has an appt with a surgeon [place] to discuss the GB polyp. Allergies cephalexin [CEPHALEXIN] Allergy (Severe, Verified 06/28/23 08:29) SWELLING clavulanic acid [From AUGMENTIN] Allergy (Severe, Verified 06/28/23 08:29) ANAPHYLAXIS clindamycin [CLINDAMYCIN] Allergy (Severe, Verified 06/28/23 08:29) TONGUE SWELLING codeine Allergy (Severe, Verified 06/28/23 08:29) PASSED OUT influenza virus vaccine, specific [FLU VACCINE] Allergy (Severe, Verified 06/28/23 08:29) ANAPHYLAXIS perflutren [From Definity] Allergy (Severe, Verified 06/28/23 08:29) hives/anaphylaxis seafood Allergy (Severe, Verified 06/28/23 08:29) Anaphylaxis fluconazole Allergy (Intermediate, Verified 06/28/23 08:29) HIVES gentamicin [GENTAMICIN] Allergy (Intermediate, Verified 06/28/23 08:29) RASH Iodinated Contrast Media [IV Contrast Dye] Allergy (Intermediate, Verified 06/28/23 08:29) Hives oxycodone Allergy (Intermediate, Verified 06/28/23 08:29) SOB sulfamethoxazole [From Bactrim] Allergy (Mild, Verified 06/28/23 08:29) swelling trimethoprim [From Bactrim] Allergy (Mild, Verified 06/28/23 08:29) swelling pineapple Allergy (Verified 06/28/23 08:29) Anaphylaxis scopolamine Adverse Reaction (Severe, Verified 06/28/23 08:29) Vomiting midazolam Adverse Reaction (Intermediate, Verified 06/28/23 08:29) Vomiting HPI HPI Comments History of Present Illness Details A 48 y/o female f/u after procedure in April- she missed May appt- due to illness to discuss U/S 02/2023- Ray[facility]- showing GB polyp-She has appoint ment 09/06 with general surgeon However previous U/S showed multiple liver cysts- She read about carrageenan-that cause inflammation- she changed to organic milk with much improvement No nausea, vomiting hematemesis, hematochezia fever or chills PFSH Medical History History of COVID-19 Post-operative nausea and vomiting NAFLD (nonalcoholic fatty liver disease) Morbid obesity with BMI of 40.0-44.9, adult H/O ganglion cyst Essential hypertension NSVT (nonsustained ventricular tachycardia) Vertigo Kidney stones Migraine Carotid artery disease Fibromyalgia HTN (hypertension) Asthma PAC (premature atrial contraction) PVC (premature ventricular contraction) Surgical History History of endometrial ablation Hx of cystoscopy Hx of lithotripsy H/O esophagogastroduodenoscopy H/O colonoscopy History of partial hysterectomy Family History Father Skin cancer Cardiovascular disease Myocardial infarction Hypertension IBS (irritable bowel syndrome) Mother Hypertension Sister Myocardial infarction Hypertension Heartburn Paternal Uncle Colon cancer Paternal Grandmother Colon cancer Social History Household Members: Children Housing: Apartment Do you presently have visiting nurse or other home services: No Alcohol intake: current Alcohol intake frequency: 0-2 drinks per day Patient Tobacco Use Status: Never used Tobacco Second Hand Smoke Exposure: No Advance Directives Date on File: 08/21/21 service: No Current occupational status: employed Review of Systems Const All systems reviewed & are unremarkable except as noted in HPI and below Card Denies dyspnea Resp Denies dyspnea GI Denies abdominal pain Physical Exam Vital Signs: Last Vital Signs Pulse 87 06/28/23 08:30 BP 133/80 06/28/23 08:30 BMI result Body Mass Index 37.1 Const General: cooperative, healthy appearing, comfortable and no acute distress Orientation/consciousness: patient oriented x3 Limitations: no limitations Resp Effort & Inspection: normal respiratory effort and able to speak in complete sentences Neuro General: patient oriented x3 Extrem General: Yes full ROM Psych Appearance: grossly normal and well kempt Mental Status: mental status grossly normal Speech and movement: Normal speech and movement present and Clear speech present Affect: normal affect Attitude: cooperative Thought process: Normal thought process present Thought content: Normal thought content present Results Reviewed Results Reviewed: 04/2023- Dr. Millard mpression and Post Procedure Diagnosis: Endoscopy Findings: STOMACH: Multiple 5 to 10 mm benign appearing polyps in the gastric body - seven of the larger polyps were removed with a cold snare. Plan: Await pathology results. If biopsies show adenomatous polyps, schedule a FU EGD in 1 year. Patient has an appointment on 05/13/23 in the GI Clinic with BRITNEY Navarro. Above findings were reviewed with the patient Gastric Polyps handout was given in the discharge area Name: Patti Drake Age/Sex: 48/F Attending: Hiral Millard MD : 1975 Submitted by: Hiral Millard MD Copies to: Jane Dao NP MR #: [id number] Status: [facility] Collected: 04/23/23 Location: [facility] Received: 04/23/23 Diagnosis Stomach, polyps: Fundic gland polyps with background mild chronic inactive inflammation; no Helicobacter organisms seen. Clinical History Pre-Op Dx: Follow up gastric polyps Post-Op Dx: Gastric polyps Microscopic Description Microscopic sections reviewed. Immunostain for H. pylori is non-reactive. Material Received Gastric polyps Gross Description Received in formalin labeled ?gastric polyps? along with tenacious clear mucus are 7 soto and soto-pink irregular and papular tissue fragments ranging from 0.2-0.35 cm, submitted in toto in a cassette labeled A. CEDS Special studies ordered and performed: immunostain for H. pylori Copies To Jane Dao NP [address] [place] [address] Hiral Millard MD [address] [place] [address] [place] [address] NOTE: Unless otherwise stated, all tissue is formalin-fixed and paraffin-embedded. Some or all of the immunohistochemical tests reported herein may have been developed and their performance characteristics determined by [facility]. They have not been cleared or approved by the U.S. Food and Drug Administration (FDA). However, the FDA has determined that such clearance or approval is not necessary. This laboratory is certified under the Clinical Laboratory Improvement Amendments of 1988 (CLIA) as qualified to perform high complexity clinical laboratory testing. Patient: Patti Drake Age/Sex: 48/F MR#: [id number] Page 1 of 2 02/2023 CT/CT kidney stone IMPRESSION: Punctate bilateral nonobstructing renal calculi. No hydroureteronephrosis. Multiple persistent too small to characterize hepatic hypodensities. 10/2022 Findings: Terminal Ileum: Not evaluated Cecum: Mild diffuse melanosis coli throughout the colon Ascending Colon: Mild diffuse melanosis coli throughout the colon Random biopsies were obtained from the right colon Transverse Colon: A 2.5 cms flat polyp at 70 cms. Polyp was raised with 5 cc of Eleview and removed with a hot stiff snare. A 4-5 mm sessile polyp in the distal transverse colon - removed with a cold bx. 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 Descending Colon: Mild diffuse melanosis coli throughout the colon Sigmoid Colon: Mild diffuse melanosis coli throughout the colon Moderate diverticulosis Rectum: Mild diffuse melanosis coli throughout the colon Ano-rectum: Normal Colon preparation: Good Impression and Post Procedure Diagnosis: Endoscopy Findings: STOMACH: Mild gastritis with a superficial erosion Colonoscopy Findings: One medium sized and one small polyps removed Moderate diverticulosis seen in the left colon Plan: Await pathology results Patient has an appointment on 10/19/22 in the GI Clinic with BRITNEY Navarro. Repeat Colonoscopy interval based on path results - in 3 - 5 years if polyps are adenomatous and due to family history of colon cancer. Above findings were reviewed with the patient and colon polyps and diverticulosis handouts were given in the discharge area ADDENDUM: Family hx and genetic test results: She has a strong family history of cancer including a maternal aunt diagnosed in her 40s, a maternal cousin diagnosed with breast cancer at the age of 33, and maternal grandmother with ovarian cancer at the age of 50, Her paternal grandmother and paternal uncle with colon cancer, and a paternal uncle with pancreatic cancer in his 40s.? Her Caroline model calculation indicated of lifetime risk of breast cancer at 36% and the Tyrer-Cuzick score revealed a lifetime risk of 25.4%. She subsequently underwent genetic testing which revealed no deleterious mutations identified.? Two variance of uncertain significance 1 in the MSH3 and another in the NTHL1 foci.?? 04/2022- US/US abdomen complete IMPRESSION: Sonographic appearance consistent with diffuse hepatic steatosis. Possible adenomyomatosis of the gallbladder. 5 mm and 4 mm nonobstructing right renal calculi. 10/2022- ddendum Addendum #1 (A, B and C): Immunostains for H. pylori are negative with appropriate control. Electronically Signed By: Karena Savage 10/08/22 [id number] Diagnosis A. Gastric antrum, biopsy: Gastric antral mucosa with focal minimal chronic inactive inflammation; negative for intestinal metaplasia and dysplasia (see comment). B. Stomach, erosion, biopsy: Gastric body mucosa with minimal chronic inactive gastritis and possible erosion; negative for intestinal metaplasia and dysplasia (see comment). C. Gastric polyp: Fundic gland polyp with low-grade adenomatous dysplasia; negative for intestinal metaplasia and high-grade dysplasia (see comment). D. Colon, right, biopsy: Colonic mucosa with pigmented lamina propria macrophages compatible with melanosis coli; otherwise no specific change. E. Colon, transverse at 70 cm, polyp: Colonic mucosa with marked thermal artifact and pigmented lamina propria macrophages; no definitive adenomatous dysplasia is identified. F. Colon, transverse, polyp: Sessile serrated lesion/polyp without dysplasia, with pigmented lamina propria macrophages. Comment: (A, B, and C): H pylori stains pending; addendum to follow. Patient: Patti Drake Age/Sex: 47/F MR#: [id number] Page 1 of 3 Assessment & Plan Assessment & Plan (1) Fundic gland polyps of stomach, benign: Comment: Gastric polyp:? Fundic gland polyp with?low-grade adenomatous dysplasia; negative for intestinal metaplasia and high-grade dysplasia- Consult with Dr. Millard-re adenomatous change-certainly given patient history/family Code(s): D13.1 - Benign neoplasm of stomach (2) Diverticulosis: Code(s): K57.90 - Diverticulosis of intestine, part unspecified, without perforation or abscess without bleeding Plan: [facility] ER protocol (3) Sessile serrated polyp of colon: Comment: very anxious polyp- reviewed pathology reassured Code(s): D12.6 - Benign neoplasm of colon, unspecified Plan: 2025 repeat colonoscopy (4) Liver cyst: Comment: seeing surgeon - no details Code(s): K76.89 - Other specified diseases of liver Plan best modality for liver cysts- seeing surgeon [phone] [facility] EGD- w/ sergio Colon/EGD- 3 years- Liver u/s genetic testing- Medications: Discontinued diltiazem HCl CD Discontinued Reason: Patient Completed Course 120 mg PO BID 180 caps 3RF omeprazole Discontinued Reason: Patient no longer taking 20 mg PO DAILY 30 caps 5RF Patient Instructions: A 48 y/o Female Repeat colon/EGD- ( 10/2022) 3 years- 2025 [facility]- maintain ER protocol divertic- Update us after consult w/ surgeon- Call with concerns Coding Level of Care Code Est Pt Level 3 (49918) Diagnoses Fundic gland polyps of stomach, benign D13.1 Diverticulosis K57.90 Sessile serrated polyp of colon D12.6 Liver cyst K76.89 Comment 30
[2023-06-28 08:30] VITALS: BP 133/80; PULSE 87; BMI 37.1
== END 2023-06-28 09:48 | disposition home or self-care (01) ==
PROVIDERS: PCP Nurse Practitioner Family; Visit Provider Physician Assistant
DX: D13.1 Benign neoplasm of stomach (principal); K57.90 Diverticulosis of intestine, part unspecified, without perforation or abscess without bleeding; D12.6 Benign neoplasm of colon, unspecified; K76.89 Other specified diseases of liver
CPT/HCPCS: 99213

== ENCOUNTER → 2023-06-28 08:24 | Outpatient (BNVA) | payer BC, SELFPAY | PROVIDERS: PCP Nurse Practitioner Family; Visit Provider Physician Assistant ==

== ENCOUNTER 2023-08-23 07:49 | Outpatient (REF) | payer BC, SELFPAY ==
--- NOTE | ~2023-08-23 | US_ITS ---
EXAMINATION: US RETROPERITONEAL LIMITED (RENAL ONLY) CLINICAL INFORMATION: Calculus of kidney. COMPARISON: CT kidney 02/23/2023, renal ultrasound 08/12/2022, renal ultrasound 03/31/2022, x-ray KUB 08/20/2021 TECHNIQUE: Real-time imaging of the kidneys. FINDINGS: RIGHT KIDNEY: 10.1 x 4.3 x 4.8 cm (SAG x AP x TRV). The kidney is normal in size, contour, and echogenicity. Renal cortical thickness is normal. No hydronephrosis. There is a 1.0 x 1.1 x 1.3 cm benign cyst in the mid kidney, no imaging follow-up is recommended. There are multiple nonobstructing calculi including: Lower pole 0.4 x 0.4 x 0.4 cm, mid kidney 0.5 x 0.4 x 0.3 cm and upper pole 0.3 x 0.3 x 0.3 cm. LEFT KIDNEY: 10.5 x 4.9 x 5.6 cm (SAG x AP x TRV). The kidney is normal in size, contour, and echogenicity. Renal cortical thickness is normal. No hydronephrosis. There is a 1.2 x 1.0 x 1.0 cm benign cyst in the mid kidney for which no imaging follow-up is recommended. 0.3 x 0.3 x 0.4 cm mid kidney and 0.5 x 0.4 x 0.5 cm lower pole nonobstructing renal calculi are seen. US/US renal BI IMPRESSION: Bilateral nonobstructing renal calculi.
== END 2023-08-23 07:50 | disposition home or self-care (01) ==
LOC: HO.US 07:49
PROVIDERS: PCP Nurse Practitioner Family; Visit Provider Nurse Practitioner Family
DX: N20.0 Calculus of kidney (principal)
CPT/HCPCS: 76775

== ENCOUNTER 2023-09-07 08:27 | Outpatient (AMB) | payer BC, SELFPAY ==
--- NOTE | 2023-09-07 08:27 | A.OFFVIS_ITS ---
Intake Visit Reasons: 6m/US(SET) Intake Note: Patient presents for tele visit follow up on: Kidney Stone and Ultrasound Results Imaging Completed: 08/23/23 Urology Medications: Vitamin B6, Pyridium, Potassium Blood Thinner: none *Patient needs refills on Pyridium and Zofran Furnace Clerk Required: No Accompanied by: Self / Same As Patient Allergies cephalexin [CEPHALEXIN] Allergy (Severe, Verified 09/07/23 10:46) SWELLING clavulanic acid [From AUGMENTIN] Allergy (Severe, Verified 09/07/23 10:46) ANAPHYLAXIS clindamycin [CLINDAMYCIN] Allergy (Severe, Verified 09/07/23 10:46) TONGUE SWELLING codeine Allergy (Severe, Verified 09/07/23 10:46) PASSED OUT influenza virus vaccine, specific [FLU VACCINE] Allergy (Severe, Verified 09/07/23 10:46) ANAPHYLAXIS perflutren [From Definity] Allergy (Severe, Verified 09/07/23 10:46) hives/anaphylaxis seafood Allergy (Severe, Verified 09/07/23 10:46) Anaphylaxis fluconazole Allergy (Intermediate, Verified 09/07/23 10:46) HIVES gentamicin [GENTAMICIN] Allergy (Intermediate, Verified 09/07/23 10:46) RASH Iodinated Contrast Media [IV Contrast Dye] Allergy (Intermediate, Verified 09/07/23 10:46) Hives oxycodone Allergy (Intermediate, Verified 09/07/23 10:46) SOB sulfamethoxazole [From Bactrim] Allergy (Mild, Verified 09/07/23 10:46) swelling trimethoprim [From Bactrim] Allergy (Mild, Verified 09/07/23 10:46) swelling pineapple Allergy (Verified 09/07/23 10:46) Anaphylaxis scopolamine Adverse Reaction (Severe, Verified 09/07/23 10:46) Vomiting midazolam Adverse Reaction (Intermediate, Verified 09/07/23 10:46) Vomiting Medication List - Last Reconciled 09/07/23 by MARK Knight albuterol sulfate 90 mcg/actuation 2 puffs inhalation Q4H PRN epinephrine 0.3 mL IM ONCE PRN hydrocodone-acetaminophen 5-300 mg 1 tab PO BID PRN hydromorphone (Dilaudid) 2 mg PO Q4-6H PRN 7 days ibuprofen 800 mg PO Q8H PRN lorazepam 0.5 mg PO DAILY PRN losartan 50 mg PO DAILY meclizine 1 tab PO TID PRN ondansetron 4 mg PO Q8H 3 days phenazopyridine (Pyridium) 100 mg PO TID PRN 4 days potassium citrate ER 20 mEq PO DAILY pyridoxine (vitamin B6) 100 mg (2 x 50 mg) PO DAILY 90 days tamsulosin (Flomax) 0.4 mg PO DAILY PRN tramadol 50 mg PO BID PRN HPI Comments Details: Patti is a 48 year old female patient of Dr Dao. She has a past medical history of liver cysts, UTI, nonalcoholic fatty liver disease, hypertension, nonsustained ventricular tachycardia, kidney stones, and complex renal cyst. She is being followed up on today via video telehealth for her longstanding history of nephrolithiasis and complex renal cyst. In discussion with the patient today she reports noting increased episodes of intermittent left-sided flank pain. Recent renal ultrasound results reviewed with the patient today. Right side with 1.3 cm benign simple cyst in the mid kidney that requires no imaging follow-up per radiology report. There are multiple nonobstructing renal calculi measuring 4 mm, 5 mm, and 3 mm. Left kidney with a 1.2 benign cyst in the mid kidney for which no imaging follow-up is recommended per radiology report. There are 2 left nonobstructing renal calculi measuring 4 mm and 5 mm. Discussed at length further treatment options of nephrolithiasis to include further workup with CT KUB versus surveillance monitoring. Patient reports that although she is experiencing intermittent left-sided flank pain she would like to continue with surveillance monitoring as it is not bothersome to her at this time. She otherwise denies urinary urgency, urinary frequency, incontinence, nocturia, hematuria, dysuria, foul smelling urine, changes to urinary stream, flank pain, fever, and or chills. She discusses having had a recent urethral sling procedure in March and is recovering well. She continues to drink plenty of water daily. She reports compliance with vitamin B6 and potassium citrate. She has a PMH of multiple surgical stone interventions in the past including ureteroscopy and ESWL. She otherwise offers no other issues or concerns at this time. [facility] Medical History Liver cyst History of COVID-19 Post-operative nausea and vomiting NAFLD (nonalcoholic fatty liver disease) Morbid obesity with BMI of 40.0-44.9, adult H/O ganglion cyst Essential hypertension NSVT (nonsustained ventricular tachycardia) Vertigo Kidney stones Migraine Carotid artery disease Fibromyalgia HTN (hypertension) Asthma PAC (premature atrial contraction) PVC (premature ventricular contraction) Surgical History History of endometrial ablation Hx of cystoscopy Hx of lithotripsy H/O esophagogastroduodenoscopy H/O colonoscopy History of partial hysterectomy Family History Father Skin cancer Cardiovascular disease Myocardial infarction Hypertension IBS (irritable bowel syndrome) Mother Hypertension Sister Myocardial infarction Hypertension Heartburn Paternal Uncle Colon cancer Paternal Grandmother Colon cancer Social History Household Members: Children Housing: Apartment Do you presently have visiting nurse or other home services: No Alcohol intake: current Alcohol intake frequency: 0-2 drinks per day Patient Tobacco Use Status: Never used Tobacco Second Hand Smoke Exposure: No Advance Directives Date on File: 08/21/21 service: No Current occupational status: employed Review of Systems Const Reports no additional complaints Eyes Reports no additional complaints ENT Reports no additional complaints Card Reports as per HPI Resp Reports no additional complaints GI Reports as per HPI Reports as per HPI Musc Reports no additional complaints Neuro Reports no additional complaints Psych Reports no additional complaints Endo Reports no additional complaints Leo/Lymph Reports no additional complaints Aller/Immun Reports no additional complaints Physical Exam Const General: cooperative, healthy appearing, comfortable, no acute distress, well developed, alert and awake Orientation/consciousness: patient oriented x3 Resp Effort & Inspection: normal respiratory effort and able to speak in complete sentences Neuro General: patient oriented x3 Psych Appearance: grossly normal Mental Status: mental status grossly normal Speech and movement: Clear speech present Affect: normal affect Attitude: cooperative Thought process: Normal thought process present Thought content: Normal thought content present Insight: Fair insight present (Psych) Judgement: Fair judgement present (Psych) Telehealth Telehealth Telehealth Platform: Integrate Location of provider rendering services: practice address Location of patient: address on file Patient Identification confirmed using: Name, : Yes Telehealth method: video Patient verbally consented to treatment: Yes Patient verbally consented to billing insurance company: Yes Patient informed of any privacy concerns related to visit: Yes Minutes spent on Phone/Video with Pt.: 15 Results Reviewed Results Reviewed: Date of Service: 08/23/23 EXAMINATION: US RETROPERITONEAL LIMITED (RENAL ONLY) FINDINGS: RIGHT KIDNEY: 10.1 x 4.3 x 4.8 cm (SAG x AP x TRV). The kidney is normal in size, contour, and echogenicity. Renal cortical thickness is normal. No hydronephrosis. There is a 1.0 x 1.1 x 1.3 cm benign cyst in the mid kidney, no imaging follow-up is recommended. There are multiple nonobstructing calculi including: Lower pole 0.4 x 0.4 x 0.4 cm, mid kidney 0.5 x 0.4 x 0.3 cm and upper pole 0.3 x 0.3 x 0.3 cm. LEFT KIDNEY: 10.5 x 4.9 x 5.6 cm (SAG x AP x TRV). The kidney is normal in size, contour, and echogenicity. Renal cortical thickness is normal. No hydronephrosis. There is a 1.2 x 1.0 x 1.0 cm benign cyst in the mid kidney for which no imaging follow-up is recommended. 0.3 x 0.3 x 0.4 cm mid kidney and 0.5 x 0.4 x 0.5 cm lower pole nonobstructing renal calculi are seen. IMPRESSION: Bilateral nonobstructing renal calculi. Assessment & Plan Assessment & Plan (1) Kidney stones: Code(s): N20.0 - Calculus of kidney Category: Medical (2) Complex renal cyst: Code(s): N28.1 - Cyst of kidney, acquired Category: Medical (3) Flank pain: Code(s): R10.9 - Unspecified abdominal pain Category: Medical Plan Recent renal imaging results reviewed with the patient today; as noted above. Discussed further intervention to include CT KUB versus surveillance monitoring; risks and benefits of these interventions were discussed. Patient is reporting flank pain however it is infrequent and will continue with surveillance monitoring at this time. Continue vitamin B6 and potassium citrate as prescribed. Discussed further metabolic workup to include 24 hour urine collection and labs however patient declines at this time as she has done this many times before and does not feel this has been helpful for her. Discussed, educated, and stressed the importance of continuing to drink plenty of water daily. Continue adding 1 oz of lemon juice to water daily. Patient reports to be happy with current voiding parameters. Will follow-up in 3 months; or sooner with any issues, concerns, and or questions. Medications: Refilled ondansetron 4 mg PO Q8H 3 days 9 tabs 0RF N20.0 - Calculus of kidney phenazopyridine (Pyridium) 100 mg PO TID 4 days PRN 12 tabs 0RF Spasm Patient Instructions: The patient had an opportunity to ask questions regarding the treatment plan. All questions were answered. Physical exam, labs, and imaging were discussed and reviewed in detail. As well as risks, benefits, and discussion of treatment choices. No major barriers to understanding were identified. The patient expressed understanding and agreement with the above treatment plan. The patient was made aware they should contact our office by phone for worsening of their current condition, the appearance of new symptoms, or with any questions or concerns. Compliance is encouraged with any medications and follow up testing that is ordered. It is a privilege to be allowed the opportunity to participate in? your urological care.? Again, if you have any questions or concerns If you have any questions or concerns please do not hesitate to contact me. The office is [phone]. This note is constructed using voice recognition software. While every effort has been made to ensure accuracy html developer errors may have been included. Yours sincerely, MARK Knight Coding Level of Care Code Tele Est Pt Level 3 (04849) Complex EM visit Add On G2211 Diagnoses Kidney stones N20.0 Complex renal cyst N28.1 Flank pain R10.9
== END 2023-09-07 08:58 | disposition home or self-care (01) ==
LOC: HO.HUSH 08:27
PROVIDERS: PCP Nurse Practitioner Family; Visit Provider Nurse Practitioner Family
DX: N20.0 Calculus of kidney (principal); N28.1 Cyst of kidney, acquired; R10.9 Unspecified abdominal pain
CPT/HCPCS: 99213

== ENCOUNTER → 2023-09-07 08:27 | Outpatient (BNVA) | payer BC, SELFPAY | PROVIDERS: PCP Nurse Practitioner Family; Visit Provider Nurse Practitioner Family ==

== ENCOUNTER 2023-10-14 07:21 | Outpatient (REF) | payer BC, SELFPAY ==
--- NOTE | ~2023-10-14 | CT_ITS ---
EXAMINATION: CT KIDNEY STONE CLINICAL INFORMATION: Calculus of kidney COMPARISON: Ultrasound renal from 08/23/2023, CT kidney from 02/23/2023 TECHNIQUE: Multidetector volumetric CT imaging of the abdomen, and pelvis was performed. Axial MIP volume rendering provided. Sagittal and coronal reformatted images were obtained. This CT examination was performed using dose optimization techniques as appropriate, variously including the following: *Automated exposure control *Adjustment of mA and/or kV according to patient size (this includes techniques or standardized protocols for targeted exams where dose is matched to indication/reason for exam; i.e. extremities or head) *Use of iterative reconstruction technique DLP: 660 mGy-cm. FINDINGS: LUNGS BASES: No pneumothorax. No large pleural effusion. Slight elevation right hemidiaphragm. LIVER, GALLBLADDER, AND BILIARY TREE: The liver is normal in size, shape, and attenuation. Redemonstration of multiple hepatic hypodensities statistically representing cysts. No focal hepatic lesion or biliary ductal dilatation is present. The gallbladder is unremarkable with no evidence of radiopaque gallstones, gallbladder wall thickening, or obvious pericholecystic inflammatory changes. PANCREAS: Unremarkable. SPLEEN: Unremarkable. ADRENAL GLANDS: Unremarkable. KIDNEYS AND URETERS: Right-sided nephrolithiasis the largest in the upper pole measuring 5 mm without hydronephrosis. Left-sided nephrolithiasis the largest in the interpolar region measuring 5 mm without hydronephrosis. Bilateral renal cysts, not requiring follow-up. Potential angiomyolipoma versus cortical defect along the inferior margin of the lower pole of the left kidney measuring 8 mm. BLADDER: Suboptimally distended though grossly unremarkable GASTROINTESTINAL TRACT: The small and large bowel are unremarkable. The appendix is unremarkable. ABDOMINAL WALL: Tiny fat filled umbilical hernia. LYMPH NODES: No enlarged lymph nodes per size criteria. VASCULAR: Abdominal aorta is nonaneurysmal. Pelvic phleboliths are noted. PELVIC VISCERA: Uterus appears surgically absent. OSSEOUS STRUCTURES: Multilevel degenerative changes of the thoracolumbar lumbosacral spine. Calcification right gluteal soft tissue. CT/CT kidney stone IMPRESSION: 1. Bilateral nephrolithiasis without hydronephrosis. 2. Bilateral renal cysts, not requiring follow-up. 3. Redemonstration of multiple hepatic hypodensities statistically representing cysts. 4. Status post hysterectomy.
== END 2023-10-14 07:22 | disposition home or self-care (01) ==
LOC: HO.CT 07:21
PROVIDERS: Visit Provider Nurse Practitioner Family
DX: N20.0 Calculus of kidney (principal)
CPT/HCPCS: 74176

== ENCOUNTER 2023-11-02 09:01 | Outpatient (AMB) | payer BC, SELFPAY ==
--- NOTE | 2023-11-02 09:20 | MHC.OFFVIS ---
Vital Signs 11/02/23 09:27 Height 5 ft 2 in Weight 197 lb BMI 36.0 BP 147/71 H Blood Pressure Location Rt brachial Position Sitting Pulse 87 Intake Visit Reasons: 6 Month Breast Exam Intake Note: Patient is seen in office for 6 month follow up visit, breast exam. Pt c/o: reports no breast complaints. 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 Accompanied by: Self / Same As Patient Allergies cephalexin [CEPHALEXIN] Allergy (Severe, Verified 11/02/23 09:28) SWELLING clavulanic acid [From AUGMENTIN] Allergy (Severe, Verified 11/02/23 09:28) ANAPHYLAXIS clindamycin [CLINDAMYCIN] Allergy (Severe, Verified 11/02/23 09:28) TONGUE SWELLING codeine Allergy (Severe, Verified 11/02/23 09:28) PASSED OUT influenza virus vaccine, specific [FLU VACCINE] Allergy (Severe, Verified 11/02/23 09:28) ANAPHYLAXIS perflutren [From Definity] Allergy (Severe, Verified 11/02/23 09:28) hives/anaphylaxis seafood Allergy (Severe, Verified 11/02/23 09:28) Anaphylaxis fluconazole Allergy (Intermediate, Verified 11/02/23 09:28) HIVES gentamicin [GENTAMICIN] Allergy (Intermediate, Verified 11/02/23 09:28) RASH Iodinated Contrast Media [IV Contrast Dye] Allergy (Intermediate, Verified 11/02/23 09:28) Hives oxycodone Allergy (Intermediate, Verified 11/02/23 09:28) SOB sulfamethoxazole [From Bactrim] Allergy (Mild, Verified 11/02/23 09:28) swelling trimethoprim [From Bactrim] Allergy (Mild, Verified 11/02/23 09:28) swelling pineapple Allergy (Verified 11/02/23 09:28) Anaphylaxis scopolamine Adverse Reaction (Severe, Verified 11/02/23 09:28) Vomiting midazolam Adverse Reaction (Intermediate, Verified 11/02/23 09:28) Vomiting HPI Comments Details: 48-year-old female patient returning for a follow-up high risk breast cancer screening. She has a strong family history of cancer including a maternal aunt diagnosed in her 40s, a maternal cousin diagnosed with breast cancer at the age of 33, and maternal grandmother with ovarian cancer at the age of 50, a paternal grandmother and paternal uncle with colon cancer, and a paternal uncle with pancreatic cancer in his 40s. Her Caroline model calculation indicated of lifetime risk of breast cancer at 36% and the Tyrer-Cuzick score revealed a lifetime risk of 25.4% she has been undergoing annual mammography but because of allergic reaction to the dye, she is unable to have a breast MRI. As a replacement she is undergoing screening bilateral ultrasounds. She was initially evaluated by Dr. Swanson on 03/17/2018. She subsequently underwent genetic testing which revealed no deleterious mutations identified. Two variance of uncertain significance 1 in the MSH3 and another in the NTHL1 foci. She reports Bilateral breast pain which seem to associated with increased stress in her life. This pain is subsequently resolved after several weeks and she is now pain-free. She denies nipple discharge, palpable mass, skin changes, or enlarged lymph nodes. Mammogram obtained on 12/01/2022 revealed no mammographic evidence of malignancy (BI-RADS 2). Bilateral screening ultrasounds were also performed on 05/03/2023 revealed benign findings ( BI-RADS 1). She is scheduled for a bilateral mammogram on 12/07/2023. [facility] Medical History Liver cyst History of COVID-19 Post-operative nausea and vomiting NAFLD (nonalcoholic fatty liver disease) Morbid obesity with BMI of 40.0-44.9, adult H/O ganglion cyst Essential hypertension NSVT (nonsustained ventricular tachycardia) Vertigo Kidney stones Migraine Carotid artery disease Fibromyalgia HTN (hypertension) Asthma PAC (premature atrial contraction) PVC (premature ventricular contraction) Surgical History History of endometrial ablation Hx of cystoscopy Hx of lithotripsy H/O esophagogastroduodenoscopy H/O colonoscopy History of partial hysterectomy Family History Father Skin cancer Cardiovascular disease Myocardial infarction Hypertension IBS (irritable bowel syndrome) Mother Hypertension Sister Myocardial infarction Hypertension Heartburn Paternal Uncle Colon cancer Paternal Grandmother Colon cancer Social History Household Members: Children Housing: Apartment Do you presently have visiting nurse or other home services: No Alcohol intake: current Alcohol intake frequency: 0-2 drinks per day Patient Tobacco Use Status: Never used Tobacco Second Hand Smoke Exposure: No Advance Directives Date on File: 08/21/21 service: No Current occupational status: employed Review of Systems Const All systems reviewed & are unremarkable except as noted in HPI and below Card Reports irregular heart rhythm Denies nipple discharge Skin/Breast Denies breast swelling, Denies breast skin changes, Denies breast pain, Denies breast mass, Denies change in breast shape and Denies nipple discharge Leo/Lymph Denies lymphadenopathy Physical Exam Vital Signs: Last Vital Signs Pulse 87 11/02/23 09:27 BP 147/71 H 11/02/23 09:27 BMI result Body Mass Index 36.0 Const General: well developed Nutritional Appearance: well nourished Orientation/consciousness: patient oriented x3 Limitations: no limitations HEENT Head: Yes normocephalic and Yes atraumatic Neck Neck: Yes no lymphadenopathy, Yes trachea midline and Yes no JVD Chest Other: Left breast: No skin change, no nipple retraction, no nipple discharge, no palpable mass, no enlarged lymph nodes. Mild fibrocystic pattern especially in the upper outer quadrant . Right breast: No skin change, no nipple retraction, no nipple discharge, no palpable mass, no enlarged lymph nodes. Mild fibrocystic pattern especially in the upper outer quadrant. Resp Effort & Inspection: normal respiratory effort, no audible wheezes and no cough GI Inspection: Yes normal to inspection Skin General skin exam: no rashes or lesions noted Neuro General: patient oriented x3 Extrem General: Yes no clubbing, cyanosis or edema Assessment & Plan Assessment & Plan (1) Bilateral mastodynia: Code(s): N64.4 - Mastodynia Category: Medical (2) Family history of breast cancer: Code(s): Z80.3 - Family history of malignant neoplasm of breast Category: Medical (3) At high risk for breast cancer: Code(s): Z91.89 - Other specified personal risk factors, not elsewhere classified Category: Medical Plan 48-year-old female patient returning for a high risk breast examination due to a strong family history for breast cancer. Her genetic testing is negative for deleterious mutations and she denies any new symptoms since her last visit. Her most recent mammogram of 12/01/2022 revealed no mammographic evidence of malignancy (BI-RADS 2). She is due for follow-up mammogram on 12/07/2023. Screening ultrasounds performed on 05/03/2023 revealed no suspicious findings (BI-RADS 1). Examination today reveals no suspicious findings in either breast other than fibrocystic change bilaterally. She will follow-up in 6 months, sooner p.r.n.. Coding Level of Care Code Est Pt Level 3 (52484) Diagnoses Bilateral mastodynia N64.4 Family history of breast cancer Z80.3 At high risk for breast cancer Z91.89
[2023-11-02 09:27] VITALS: BP 147/71; PULSE 87; BMI 36.0
== END 2023-11-02 09:39 | disposition home or self-care (01) ==
PROVIDERS: PCP Nurse Practitioner Family; Visit Provider Surgery
DX: N64.4 Mastodynia (principal); Z80.3 Family history of malignant neoplasm of breast; Z91.89 Other specified personal risk factors, not elsewhere classified
CPT/HCPCS: 99213

== ENCOUNTER → 2023-11-02 09:01 | Outpatient (BNVA) | payer BC, SELFPAY | PROVIDERS: PCP Nurse Practitioner Family; Visit Provider Surgery ==

== ENCOUNTER 2023-12-08 15:07 | Outpatient (AMB) | payer BC, SELFPAY ==
--- NOTE | 2023-12-08 15:08 | MHC.OFFVIS ---
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 Accompanied by: Self / Same As Patient Allergies cephalexin [CEPHALEXIN] Allergy (Severe, Verified 12/08/23 15:40) SWELLING clavulanic acid [From AUGMENTIN] Allergy (Severe, Verified 12/08/23 15:40) ANAPHYLAXIS clindamycin [CLINDAMYCIN] Allergy (Severe, Verified 12/08/23 15:40) TONGUE SWELLING codeine Allergy (Severe, Verified 12/08/23 15:40) PASSED OUT influenza virus vaccine, specific [FLU VACCINE] Allergy (Severe, Verified 12/08/23 15:40) ANAPHYLAXIS perflutren [From Definity] Allergy (Severe, Verified 12/08/23 15:40) hives/anaphylaxis seafood Allergy (Severe, Verified 12/08/23 15:40) Anaphylaxis fluconazole Allergy (Intermediate, Verified 12/08/23 15:40) HIVES gentamicin [GENTAMICIN] Allergy (Intermediate, Verified 12/08/23 15:40) RASH Iodinated Contrast Media [IV Contrast Dye] Allergy (Intermediate, Verified 12/08/23 15:40) Hives oxycodone Allergy (Intermediate, Verified 12/08/23 15:40) SOB sulfamethoxazole [From Bactrim] Allergy (Mild, Verified 12/08/23 15:40) swelling trimethoprim [From Bactrim] Allergy (Mild, Verified 12/08/23 15:40) swelling pineapple Allergy (Verified 12/08/23 15:40) Anaphylaxis scopolamine Adverse Reaction (Severe, Verified 12/08/23 15:40) Vomiting midazolam Adverse Reaction (Intermediate, Verified 12/08/23 15:40) Vomiting Medication List - Last Reconciled 12/08/23 by MARK Knight albuterol sulfate 90 mcg/actuation 2 puffs inhalation Q4H PRN epinephrine 0.3 mL IM ONCE PRN hydrocodone-acetaminophen 5-300 mg 1 tab PO BID PRN hydromorphone (Dilaudid) 2 mg PO Q4-6H PRN 7 days ibuprofen 800 mg PO Q8H PRN lorazepam 0.5 mg PO DAILY PRN losartan 50 mg PO DAILY meclizine 1 tab PO TID PRN ondansetron 4 mg PO Q8H 3 days phenazopyridine (Pyridium) 100 mg PO TID PRN 4 days potassium citrate ER 20 mEq PO DAILY prednisone 20 mg PO DAILY 5 days pyridoxine (vitamin B6) 100 mg (2 x 50 mg) PO DAILY 90 days tamsulosin 0.4 mg PO BEDTIME 14 days tamsulosin (Flomax) 0.4 mg PO DAILY PRN tramadol 50 mg PO BID PRN HPI Comments Details: Patti is a 48 year old female patient of Dr Dao. She has a past medical history of liver cysts, UTI, nonalcoholic fatty liver disease, hypertension, nonsustained ventricular tachycardia, kidney stones, and complex renal cyst. She is being followed up on today via video telehealth for her longstanding history of nephrolithiasis and complex renal cyst. In discussion with the patient today she reports since her last office visit here approximately 3 months ago she has passed 3 kidney stones. She reports calling the office in the early days of October at which time she was prescribed Flomax and prednisone and was able to passed 3 kidney stones. She continues to experience intermittent episodes of bilateral flank pain. Recent CT results 10/26 reviewed with the patient today. Bilateral nephrolithiasis largest measuring 5 mm. No hydronephrosis noted bilaterally. The bladder is suboptimally distended though grossly unremarkable. We discussed at length surgical intervention versus surveillance monitoring. Risks and benefits of these interventions were discussed. She otherwise denies urinary urgency, urinary frequency, incontinence, nocturia, hematuria, dysuria, foul smelling urine, changes to urinary stream, flank pain, fever, and or chills. She continues to drink plenty of water daily. She reports compliance with vitamin B6 and potassium citrate. She has a PMH of multiple surgical stone interventions in the past including ureteroscopy and ESWL. She otherwise offers no other issues or concerns at this time. [facility] Medical History Liver cyst History of COVID-19 Post-operative nausea and vomiting NAFLD (nonalcoholic fatty liver disease) Morbid obesity with BMI of 40.0-44.9, adult H/O ganglion cyst Essential hypertension NSVT (nonsustained ventricular tachycardia) Vertigo Kidney stones Migraine Carotid artery disease Fibromyalgia HTN (hypertension) Asthma PAC (premature atrial contraction) PVC (premature ventricular contraction) Surgical History History of endometrial ablation Hx of cystoscopy Hx of lithotripsy H/O esophagogastroduodenoscopy H/O colonoscopy History of partial hysterectomy Family History Father Skin cancer Cardiovascular disease Myocardial infarction Hypertension IBS (irritable bowel syndrome) Mother Hypertension Sister Myocardial infarction Hypertension Heartburn Paternal Uncle Colon cancer Paternal Grandmother Colon cancer Social History Household Members: Children Housing: Apartment Do you presently have visiting nurse or other home services: No Alcohol intake: current Alcohol intake frequency: 0-2 drinks per day Patient Tobacco Use Status: Never used Tobacco Second Hand Smoke Exposure: No Advance Directives Date on File: 08/21/21 service: No Current occupational status: employed Review of Systems Const Reports no additional complaints Eyes Reports no additional complaints ENT Reports no additional complaints Card Reports as per HPI Resp Reports no additional complaints GI Reports as per HPI Reports as per HPI Musc Reports no additional complaints Neuro Reports no additional complaints Psych Reports no additional complaints Endo Reports no additional complaints Leo/Lymph Reports no additional complaints Aller/Immun Reports no additional complaints Physical Exam Const General: cooperative, healthy appearing, comfortable, no acute distress, well developed, alert and awake Orientation/consciousness: patient oriented x3 Resp Effort & Inspection: normal respiratory effort and able to speak in complete sentences Neuro General: patient oriented x3 Psych Appearance: grossly normal Mental Status: mental status grossly normal Speech and movement: Clear speech present Affect: normal affect Attitude: cooperative Thought process: Normal thought process present Thought content: Normal thought content present Insight: Fair insight present (Psych) Judgement: Fair judgement present (Psych) Telehealth Telehealth Telehealth Platform: [facility] Location of provider rendering services: practice address Location of patient: address on file Patient Identification confirmed using: Name, : Yes Telehealth method: video Patient verbally consented to treatment: Yes Patient verbally consented to billing insurance company: Yes Patient informed of any privacy concerns related to visit: Yes Minutes spent on Phone/Video with Pt.: 15 Results Reviewed Results Reviewed: Date of Service: 10/14/23 EXAMINATION: CT KIDNEY STONE FINDINGS: LUNGS BASES: No pneumothorax. No large pleural effusion. Slight elevation right hemidiaphragm. LIVER, GALLBLADDER, AND BILIARY TREE: The liver is normal in size, shape, and attenuation. Redemonstration of multiple hepatic hypodensities statistically representing cysts. No focal hepatic lesion or biliary ductal dilatation is present. The gallbladder is unremarkable with no evidence of radiopaque gallstones, gallbladder wall thickening, or obvious pericholecystic inflammatory changes. PANCREAS: Unremarkable. SPLEEN: Unremarkable. ADRENAL GLANDS: Unremarkable. KIDNEYS AND URETERS: Right-sided nephrolithiasis the largest in the upper pole measuring 5 mm without hydronephrosis. Left-sided nephrolithiasis the largest in the interpolar region measuring 5 mm without hydronephrosis. Bilateral renal cysts, not requiring follow-up. Potential angiomyolipoma versus cortical defect along the inferior margin of the lower pole of the left kidney measuring 8 mm. BLADDER: Suboptimally distended though grossly unremarkable GASTROINTESTINAL TRACT: The small and large bowel are unremarkable. The appendix is unremarkable. ABDOMINAL WALL: Tiny fat filled umbilical hernia. LYMPH NODES: No enlarged lymph nodes per size criteria. VASCULAR: Abdominal aorta is nonaneurysmal. Pelvic phleboliths are noted. PELVIC VISCERA: Uterus appears surgically absent. OSSEOUS STRUCTURES: Multilevel degenerative changes of the thoracolumbar lumbosacral spine. Calcification right gluteal soft tissue. IMPRESSION: 1. Bilateral nephrolithiasis without hydronephrosis. 2. Bilateral renal cysts, not requiring follow-up. 3. Redemonstration of multiple hepatic hypodensities statistically representing cysts. 4. Status post hysterectomy. Assessment & Plan Assessment & Plan (1) Kidney stones: Code(s): N20.0 - Calculus of kidney Category: Medical Plan Recent CT results reviewed with the patient today; as noted above. Discussed at length surgical intervention versus surveillance monitoring of nephrolithiasis; risks and benefits of these interventions were discussed. Continue potassium citrate and vitamin B6 as discussed and prescribed. Discussed, educated, and stressed the importance of adequate hydration relation to nephrolithiasis as well as overall health and well-being. Patient currently denies any bothersome urinary issues. She reports be happy with current voiding parameters. Will obtain KUB in 2-3 months. Follow-up in 2-3 months with imaging to be completed prior; or sooner with any issues, concerns, and or questions. Orders: Orders XR ABD 1vw (KUB) Today N20.0 - Calculus of kidney Patient Instructions: The patient had an opportunity to ask questions regarding the treatment plan. All questions were answered. Physical exam, labs, and imaging were discussed and reviewed in detail. As well as risks, benefits, and discussion of treatment choices. No major barriers to understanding were identified. The patient expressed understanding and agreement with the above treatment plan. The patient was made aware they should contact our office by phone for worsening of their current condition, the appearance of new symptoms, or with any questions or concerns. Compliance is encouraged with any medications and follow up testing that is ordered. It is a privilege to be allowed the opportunity to participate in? your urological care.? Again, if you have any questions or concerns If you have any questions or concerns please do not hesitate to contact me. The office is [phone]. This note is constructed using voice recognition software. While every effort has been made to ensure accuracy shake loader errors may have been included. Yours sincerely, MARK Knight Coding Level of Care Code Est Pt Level 3 (94994) Complex EM visit Add On G2211 Diagnoses Kidney stones N20.0
== END 2023-12-08 15:42 | disposition home or self-care (01) ==
LOC: HO.HUSH 15:07
PROVIDERS: PCP Nurse Practitioner Family; Visit Provider Nurse Practitioner Family
DX: N20.0 Calculus of kidney (principal)
CPT/HCPCS: 99213

== ENCOUNTER → 2023-12-08 15:07 | Outpatient (BNVA) | payer BC, SELFPAY | PROVIDERS: PCP Nurse Practitioner Family; Visit Provider Nurse Practitioner Family ==

== ENCOUNTER 2024-02-08 08:40 | Outpatient (AMB) | payer BC, SELFPAY ==
--- NOTE | 2024-02-08 08:29 | A.OFFVIS_ITS ---
Intake Visit Reasons: 2m/KUB Intake Note: Patient presents for tele visit follow up on: Kidney Stone Urology Medications: Vitamin B6, Pyridium Blood Thinner: none Business Services Director Required: No Accompanied by: Self / Same As Patient Allergies cephalexin [CEPHALEXIN] Allergy (Severe, Verified 12/08/23 15:40) SWELLING clavulanic acid [From AUGMENTIN] Allergy (Severe, Verified 12/08/23 15:40) ANAPHYLAXIS clindamycin [CLINDAMYCIN] Allergy (Severe, Verified 12/08/23 15:40) TONGUE SWELLING codeine Allergy (Severe, Verified 12/08/23 15:40) PASSED OUT influenza virus vaccine, specific [FLU VACCINE] Allergy (Severe, Verified 15:40) ANAPHYLAXIS perflutren [From Definity] Allergy (Severe, Verified 12/08/23 15:40) hives/anaphylaxis seafood Allergy (Severe, Verified 12/08/23 15:40) Anaphylaxis fluconazole Allergy (Intermediate, Verified 12/08/23 15:40) HIVES gentamicin [GENTAMICIN] Allergy (Intermediate, Verified 12/08/23 15:40) RASH Iodinated Contrast Media [IV Contrast Dye] Allergy (Intermediate, Verified 15:40) Hives oxycodone Allergy (Intermediate, Verified 12/08/23 15:40) SOB sulfamethoxazole [From Bactrim] Allergy (Mild, Verified 12/08/23 15:40) swelling trimethoprim [From Bactrim] Allergy (Mild, Verified 12/08/23 15:40) swelling pineapple Allergy (Verified 12/08/23 15:40) Anaphylaxis scopolamine Adverse Reaction (Severe, Verified 12/08/23 15:40) Vomiting midazolam Adverse Reaction (Intermediate, Verified 12/08/23 15:40) Vomiting Medication List - Last Reconciled 02/08/24 by MARK Knight albuterol sulfate 90 mcg/actuation 2 puffs inhalation Q4H PRN clopidogrel 75 mg PO DAILY epinephrine 0.3 mL IM ONCE PRN ibuprofen 800 mg PO Q8H PRN lorazepam 0.5 mg PO DAILY PRN losartan 50 mg PO DAILY meclizine 1 tab PO TID PRN pyridoxine (vitamin B6) 100 mg (2 x 50 mg) PO DAILY 90 days tamsulosin (Flomax) 0.4 mg PO DAILY PRN tramadol 50 mg PO BID PRN HPI Comments Details: Patti is a 49 year old female patient of Dr Dao. She has a past medical history of liver cysts, UTI, nonalcoholic fatty liver disease, hyp ertension, nonsustained ventricular tachycardia, kidney stones, and complex renal cyst. She is being followed up on today via telehealth for her longstanding history of nephrolithiasis and complex renal cyst. In discussion with the patient today she reports since her last office visit here approximately 2 months ago she has been having bilateral flank pain and believes stones are moving. During last office visit 2 months ago plan was to obtain KUB prior to today's office visit however patient discusses her frustration regarding no reminder in doing so. Discussed obtaining CT KUB for further a ssessment evaluation. She reports compliance with vitamin B6. She has a PMH of multiple surgical stone interventions in the past including ureteroscopy and ESWL. She otherwise offers no other issues or concerns at this time. [facility] Medical History Liver cyst History of COVID-19 Post-operative nausea and vomiting NAFLD (nonalcoholic fatty liver disease) Morbid obesity with BMI of 40.0-44.9, adult H/O ganglion cyst Essential hypertension NSVT (nonsustained ventricular tachycardia) Vertigo Kidney stones Migraine Carotid artery disease Fibromyalgia HTN (hypertension) Asthma PAC (premature atrial contraction) PVC (premature ventricular contraction) Surgical History History of endometrial ablation Hx of cystoscopy Hx of lithotripsy H/O esophagogastroduodenoscopy H/O colonoscopy History of partial hysterectomy Family History Father Skin cancer Cardiovascular disease Myocardial infarction Hypertension IBS (irritable bowel syndrome) Mother Hypertension Sister Myocardial infarction Hypertension Heartburn Paternal Uncle Colon cancer Paternal Grandmother Colon cancer Social History Household Members: Children Housing: Apartment Do you presently have visiting nurse or other home services: No Alcohol intake: current Alcohol intake frequency: 0-2 drinks per day Patient Tobacco Use Status: Never used Tobacco Second Hand Smoke Exposure: No Advance Directives Date on File: 08/21/21 service: No Current occupational status: employed Review of Systems Const Reports no additional complaints Eyes Reports no additional complaints ENT Reports no additional complaints Card Reports as per HPI Resp Reports no additional complaints GI Reports as per HPI Reports as per HPI Musc Reports no additional complaints Neuro Reports no additional complaints Psych Reports no additional complaints Endo Reports no additional complaints Leo/Lymph Reports no additional complaints Aller/Immun Reports no additional complaints Physical Exam Const Orientation/consciousness: patient oriented x3 Resp Effort & Inspection: able to speak in complete sentences Neuro General: patient oriented x3 Psych Thought process: Normal thought process present Insight: Fair insight present (Psych) Judgement: Fair judgement present (Psych) Telehealth Telehealth Telehealth Platform: Telephone Location of provider rendering services: practice address Location of patient: address on file Patient Identification confirmed using: Name, : Yes Telehealth method: voice only Patient verbally consented to treatment: Yes Patient verbally consented to billing insurance company: Yes Patient informed of any privacy concerns related to visit: Yes Minutes spent on Phone/Video with Pt.: 15 Assessment & Plan Assessment & Plan (1) Kidney stones: Code(s): N20.0 - Calculus of kidney Category: Medical (2) Bilateral flank pain: Code(s): R10.9 - Unspecified abdominal pain Category: Medical Plan Will obtain CT KUB for further assessment evaluation. Discussed possible surgical intervention versus surveillance monitoring however will await CT KUB results for further assessment evaluation. Follow-up once imaging is completed; or sooner with any issues, concerns, and or questions. Orders: Orders CT kidney stone Today N20.0 - Calculus of kidney Patient Instructions: The patient had an opportunity to ask questions regarding the treatment plan. All questions were answered. Physical exam, labs, and imaging were discussed and reviewed in detail. As well as risks, benefits, and discussion of treatment choices. No major barriers to understanding were identified. The patient expressed understanding and agreement with the above treatment plan. The patient was made aware they should contact our office by phone for worsening of their current condition, the appearance of new symptoms, or with any questions or concerns. Compliance is encouraged with any medications and follow up testing that is ordered. It is a privilege to be allowed the opportunity to participate in? your urological care.? Again, if you have any questions or concerns If you have any questions or concerns please do not hesitate to contact me. The office is [phone]. This note is constructed using voice recognition software. While every effort has been made to ensure accuracy pail tester errors may have been included. Yours sincerely, MARK Knight Coding Level of Care Code Tele Est Pt Level 3 (67694) Diagnoses Kidney stones N20.0 Bilateral flank pain R10.9
== END 2024-02-08 11:41 | disposition home or self-care (01) ==
LOC: HO.HUSH 08:40
PROVIDERS: PCP Nurse Practitioner Family; Visit Provider Nurse Practitioner Family
DX: N20.0 Calculus of kidney (principal); R10.9 Unspecified abdominal pain
CPT/HCPCS: 99442

== ENCOUNTER 2024-05-19 08:10 | Outpatient (REF) | payer BC, SELFPAY ==
--- OUTSIDE RECORDS SUMMARY | 2024-05-19 08:13 | XMS_ITS | Encounter Summary ---
Author Organization [facility] Address [address] [place] [address] Care Team Providers Care Jinrikisha Driver Name Role Phone Jane Dao MD Primary Care Provider [phone] Encounter Details Date Type Department Care Team (Late st Contact Info) Description 11/30/2023 Scanned Document [facility] Surgical Oncology [place] [address] [facility] [address] [place] [phone] Hope Peralta MD [address] [facility] [address] [place] [address] Social History Tobacco Use Types Packs/Day Years Used Date Smoking Tobacco: Never Smokeless Tobacco: Never Alcohol Use Standard Drinks/Week Comments Yes 1 (1 standard drink = 0.6 oz pur e alcohol) not daily Sex and Gender Information Value Date Recorded Sex Assigned at Not on file Gender Identity Not on file Sexual Orientation Not on file documented as of this encounter Plan of Treatment Upcoming Encounters Date Type Department Care Team (Late st Contact Info) Description 05/23/2024 9:00 AM EST Office Visit [facility] [address] [place] [address] Violet Suggs, PARTH [address] [facility] [address] [place] [address] 06/26/2024 8:30 AM EDT [facility] [place] [address] [place] [phone] Hope Peralta MD [address] [place] [phone] documented as of this encounter Visit Diagnoses Not on filedocumented in this encounter Care Teams Jinrikisha Driver Relationship Specialty Start Date End Date Jane Dao MD [address] [place] [phone] PCP - General General Medicine 05/31/23 documented as of this encounter
--- OUTSIDE RECORDS SUMMARY | 2024-05-19 08:14 | XMS_ITS ---
Author Organization Gómez Liu MD Address [address] [phone] Care Team Providers Care Crossbar Frame Wirer Name Role Phone Jane Dao Primary Care Provider Allergies Allergen (clinical drug ingredient) Drug/Non Drug Allergy documented on EMR Reaction Allergy Type Onset Date Status amoxicillin / clavulanate augmentin (uncoded) Unknown Allergy Active sulfamethoxazole / trimethoprim bactrim (uncoded) Unknown Allergy Active cephalexin cephalexis (uncoded) Unknown Allergy Active clindamycin clindamycin (uncoded) Unknown Allergy Active codeine codeine (uncoded) Unknown Allergy Ac tive fluconazole diflucan (uncoded) Unknown Allergy Active Vaccine product containing Influenza virus antigen (medicinal product) flu vaccine (uncoded) anaphylaxis Allergy Active fluconazole fluconazole (uncoded) Unknown Allergy Active gentamicin gentamicin (uncoded) Unknown Allergy Active Iv dye (uncoded) Unknown Allergy Act leti oxycodone oxycodone (uncoded) Unknown Allergy Active acetaminophen / oxycodone Percocet (uncoded) Unknown Allergy Active versed (uncoded) Unknown Allergy Act leti almond allergenic extract [place] (Diagnostic) Unknown Drug Allergy Active Shellfish (FN) Shellfish-derived Products anaphylaxis Drug Allergy Active Yeast-related Products Unknown Drug Allergy Active Chickpea Unknown Allergy Active REASON FOR VISIT New Refill Request Medications Medication SIG (Take, Route, Fr equency, Duration) Notes Start Date End Date Status Phentermine HCl 15 MG 1 capsule Oral Onc e a day for 30 days 05/02/2024 Active Encounters Encounter Location Date Provider Diagnosis Gómez Liu MD [address] [facility] [address] [place] [phone] 05/02/2024 Jane Dao Plan Of Treatment Medication Medication Name Sig Start Date Stop Date Notes Phentermine HCl 15 MG 1 capsule Oral Onc e a day for 30 days 05/02/2024 Next Appt Details Provider Name:Jane Dao , 07/31/2024 08:30:00 AM, [address] [facility], [address], [place], [place], [phone], Progress Notes * Patti SULLIVANDOB:[birth year] (49 yo F)Acc No.[id number]:05/02/2024 Patient:?Patti SULLIVAN :1975???Age:49 Y???Sex:Female Address:[address] [place] [phone] * Refills? Refill Phentermine HCl Capsule, 15 MG, Oral, 30 Capsule, 1 capsule, Once a day, 30 days, Refills=0 Subjective: * Chief Complaints: * ???New Refill Request * Medical History:? * Surgical History:? * Hospitalization/Major Diagno stic Procedure:? * Medications:? * Allergies:?Percocetcodeinebactrimversedaugmentincephalexisclindamycingentamicino xycodonediflucanfluconazoleIv dyeflu vaccine: anaphylaxisShellfish-derived Products: anaphylaxis - AllergyAlmond (Diagnostic): AllergyChickpea: AllergyYeast-related Products: Allergyno[Allergies Verified] Objective: * Vitals:? Past Vitals:* 03/09/2024 Temp:96.7F, HR:102/min, BP:1 24/74mm Hg, Wt:194lbs, BMI:35.48Index, Ht:5 ft 2 in, Oxygen sat %:98% * 02/01/2024 Temp:96.8F, HR:101/min, Ht:5 ft 2 in, Oxygen sat %:98% * 12/22/2023 Temp:96.5F, HR:93/min, BP:12 6/76mm Hg, Wt:202lbs, BMI:36.94Index, Ht:5 ft 2 in, Oxygen sat %:98% * Physical Examination:? Assessment: Plan: * Treatment: * Procedure Codes:? * true * Date:? Generated for Svitlana castrejon/Beatriz/Poppy on:?05/19/2024 08:14 AM EST
--- OUTSIDE RECORDS SUMMARY | 2024-05-19 08:14 | XMS_ITS ---
Demographics Address [address] [place] [phone] Mobile Email Address Preferred Language en Marital Status Unknown Muslim Affiliation Unknown Race Unknown Ethnic Group or Author Organization Gómez Liu MD Address [address] [phone] Care Team Providers Care Rn Pool Name Role Phone Jane Dao Primary Care Provider REASON FOR VISIT Clinical Concern Encounters Encounter Location Date Provider Diagnosis Gómez Liu MD [address] [place] [address] [place] [phone] 04/10/2024 Jane Dao Plan Of Treatment Next Appt Details Provider Name:Jane Dao , 07/31/2024 08:30:00 AM, [address] [place] [address], [place] [address], [place], [place], [phone], Progress Notes * Patti SULLIVANDOB:[birth year] (49 yo F)Acc No.[id number]:04/10/2024 Patient:?Patti SULLIVAN :1975???Age:49 Y???Sex:Female Address:[address], [place] [address] * true * Date:? Generated for Printi ng/Fajuan fg/eTransmitting on:?05/19/2024 08:14 AM EST
--- OUTSIDE RECORDS SUMMARY | 2024-05-19 08:14 | XMS_ITS | Data Portability ---
Author Organization [place] [facility] Address [address] [place] [address] Care Team Providers Care Iphone Developer Name Role Phone ILIA COLEMAN Primary Care Provider [phone] Assessment Encounter Date Assessment Date Assessment LastModified by Organization Details LastModified Time 08/16/2020 08/16/2020 Time On Scene with Patient: 00:29:15 [id number] Not available 08/16/2020 12:17:09 Plan of Treatment Reminders Order Date Submit Date Provider Last Modified By Organization Details Last Modified Time Details Appointments None recorded . Lab None recorded . Referral None recorded . Procedures None recorded . Surgeries None recorded . Imaging None recorded . Medication Orders Zofran 4 mg tablet 021 08/17/19 [id number], [address], [place], [id number], 13:08:05 Patient TargetsNo targets recorded. Patient Instructions Encounter Date Encounter Id Patient Instructions Last Modified By Organization Details Last Modified Time 08/16/2020 [id number] YOU HAVE BEEN EXPOSED TO COVID IN YOUR HOME. YOU ARE SYMPTOMATIC, PER CDC GUIDELINES, YOU ARE ASSUMED POSITIVE YOU HAVE SYMPTOMS. PLEASE FOLLOW CDC GUIDELINES AND REMAIN IN QUARANTINE UNTIL YOU ARE SYMPTOMS FREE FOR 2 DAYS. ZOFRAN WAS PRESCRIBED FOR YOUR INTERMITTENT NAUSEA. PLEASE TAKE ZOFRAN 1 TABLET NEEDED UP TO THREE TIMES A DAY. WAIT 1/2 HOUR AFTER TAKING, PUSH FLUIDS AND AND EAT FREQUENT SMALL MEALS TOLERATED. FOLLOW UP WITH YOUR PCP AND/OR ADULT BASIC STUDIES TEACHER NEEDED. What is coronavirus disease 2019? Coronavirus disease 2019 (COVID-19) is a respiratory illness that can spread from person to person. The virus that causes COVID-19 is a novel coronavirus that was first identified during an investigation into an outbreak in [facility]. Can I get COVID-19? Yes. COVID-19 is spreading from person to person in parts of the world. Risk of infection from the virus that causes COVID-19 is higher for people who are close contacts of someone known to have COVID-19, for example household members. Other people at higher risk for infection are those who live in or have recently been in an area with ongoing spread of COVID-19. How does COVID-19 spread? The virus that causes COVID-19 probably emerged from an animal source, but is now spreading from person to person. The virus is thought to spread mainly between people who are in close contact with one another (within about 6 feet) through respiratory droplets produced when an infected person coughs or sneezes. It also may be possible that a person can get COVID-19 by touching a surface or object that has the virus on it and then touching their own mouth, nose or possibly their eyes, but this is not thought to be the main way the virus spreads. What are the symptoms of COVID-19? Patients with COVID-19 have mild to severe respiratory illness with symptoms of: fever cough shortness of breath What are severe complications from this virus? Some patients have pneumonia in both lungs, multi-organ failure and in some cases . People can help protect themselves from respiratory illness with everyday preventative actions. Avoid close contact with people who are sick. Avoid touching your eyes, nose, and mouth with unwashed hands. Wash your hands often with soap and water for at least 20 seconds. Use an alcohol-based hand assistant manager trainee that contains at least 60% alcohol if soap and water are not available If you are sick, to keep from spreading respiratory illness to others, you should Stay home when you are sick. Cover your cough or sneeze with a tissue, then throw the tissue in the trash. Clean and disinfect frequently touched objects and surfaces. Is there a treatment? There is no specific antiviral treatment for COVID-19. People with COVID-19 can seek medical care to help relieve symptoms. FOR MORE INFORMATION: [email or web address] Not available 08/16/2020 12:11:19 Reason for Referral None Reported. Procedures Surgical History Date Name Laterality Status Provider Name and Address Organization Details Recorded Time Total Hysterectomy completed Chacha Thorpe, RAHUL [address], [place], [address], [place] [facility] 08/16/2020 11:55:49 procedure on kidney completed Chacha Thorpe NP [address], [place], [address], [place] [facility] 08/16/2020 11:55:56 procedure on ganglion cyst completed Chacha Thorpe NP [address], [place], [address], [place] [facility] 08/16/2020 11:56:03 D&c of cervical stump completed Chacha Thorpe NP [address], [place], [address], [place] [facility] 08/16/2020 11:56:17 lithotripsy completed Chacha Thorpe NP [address], [place], [address], [place] [facility] 08/16/2020 11:57:09 Imaging Results None recorded. Procedure Notes None recorded. Medical Equipment None Reported. Allergies Allergen ID Allergen Name Allergen Category Reaction Reaction Severity Criticality Documentation Date Start Date Code Code System Note Provider Name and Address Organization Details Recorded Time [id number] acetamino phen / oxycodone medicatio n Not available Not available Not available 08/16/2020 55510 3 RxNorm Chacha Thorpe, RAHUL [address], [place], [address], [place] [facility] 11:50:17 134726 codeine medicatio n Not available Not available Not available 08/16/2020 2670 RxNorm Chacha Thorpe, RAHUL [address], [place], [address], [place] [facility] 11:50:26 [id number] Bactrim medicatio n Not available Not available Not available 08/16/2020 66857 9 RxNorm Chacha Thorpe, RAHUL [address], [place], [address], [place] [facility] 11:50:34 031156 midazolam hydrochlo ride medicatio n Not available Not available Not available 08/16/2020 32799 8 RxNorm Chachabrayden Thorpe, MIRROR MAKER [address], [place], [address], [place] [facility] 11:50:41 [id number] Augmentin medicatio n Not available Not available Not available 08/16/2020 75729 2 RxNorm Chachabrayden Thorpe, MIRROR MAKER [address], [facility], [address], [place] [facility] 11:50:50 [id number] cephalexi n medicatio n Not available Not available Not available 08/16/2020 2231 RxNorm Chachabrayden Thorpe, MIRROR MAKER [address], [facility], [address], [place] [facility] 11:51:05 [id number] clindamyc in Not available Not available Not available Not available 08/16/2020 2582 RxNorm Chachabrayden Thorpe, MIRROR MAKER [address], [facility] [place], [address], [place] [facility] 11:51:16 [id number] gentamici n medicatio n Not available Not available Not available 08/16/2020 84857 50 RxNorm Chachabrayden Thorpe, MIRROR MAKER [address], [facility], [address], [place] [facility] 11:51:26 [id number] oxycodone medicatio n Not available Not available Not available 08/16/2020 7804 RxNorm Chachabrayden Thorpe, MIRROR MAKER [address], [facility], [address], [place] [facility] 11:51:32 654162 Diflucan medicatio n Not available Not available Not available 08/16/202090772 3 RxNorm Chachabrayden Thorpe, MIRROR MAKER [address], [place], [address], [place] [facility] 11:51:40 [id number] fluconazo le medicatio n Not available Not available Not available 08/16/2020 4450 RxNorm Chacha Ruth Thorpe, MIRROR MAKER [address], [place], [address], [place] [facility] 11:51:48 [id number] Iodinated contrast media (substanc e) medicatio n Not available Not available Not available 08/16/2020 74940 2004 SNOMED Chachabrayden Thorpe, MIRROR MAKER [address], [place], [address], [place] [facility] 11:52:07 [id number] influenza A (H5N1) virus vaccine monoval (18 yr +) Not available Not available Not available Not available 08/16/2020 43741 UNK Chachabrayden Thorpe, MIRROR MAKER [address], [place], [address], [place] [facility] 11:52:15 842458 Definity medicatio n Not available Not available Not available 08/16/2020 24963 5 RxNorm Chachabrayden Thorpe, MIRROR MAKER [address], [place], [address], [place] [facility] 11:52:30 [id number] shellfish derived food,medi cation Not available Not available Not available 08/16/2020 47439 UNK Chachabrayden Thorpe, RAHUL [address], [place], [address], [place] [facility] 11:52:40 [id number] pineapple extract food Not available Not available Not available 08/16/2020 40928 74 RxNorm Chachabrayden Thorpe, MIRROR MAKER [address], [place], [address], [place] [facility] 11:52:49 Medications Name Sig Start Date Stop Date Status Note LastModified by Organization Details LastModified Time cromolyn 100 mg/5 mL oral concentrate active Not Available Not Available Not Available prednisone 10 mg tablet 08/16 completed Not Available Not Available Not Available doxycycline hyclate 100 mg capsule TAKE 1 CAPSULE BY MOUTH TWICE DAILY FOR 14 DAYS 08/16 completed Not Available Not Available Not Available ibuprofen 800 mg tablet TK 1 T PO TID PRN FOR PAIN active Not Available Not Available No t Available benzonatate 200 mg capsule TAKE 1 CAPSULE BY MOUTH EVERY 8 HOURS FOR 7 DAYS NEEDED FOR COUGH 08/16 completed Not Available Not Available Not Available sumatriptan 25 mg tablet TAKE 1 TABLET BY MOUTH EVERY 2 TO 4 HOURS NEEDED FOR MIGRAINE HEADACHE. DO NOT EXCEED 8 DOSES IN 24 HOURS. active Not Available Not Available No t Available ondansetron HCl 4 mg tablet TAKE 1 TABLET BY MOUTH THREE TIMES DAILY FOR 5 DAYS active Not Available Not Available No t Available clobetasol 0.05 % topical cream APPLY TOPICALLY TO THE AFFECTED AREA TWICE DAILY FOR 2 WEEKS NEEDED active Not Available Not Available No t Available meclizine 12.5 mg tablet TAKE 1 TABLET BY MOUTH THREE TIMES DAILY NEEDED FOR DIZZINESS active Not Available Not Available No t Available tramadol 50 mg tablet TK 1 T PO Q 12 H PRF PAIN active Not Available Not Available No t Available terconazole 80 mg vaginal suppository 08/16 completed Not Available Not Available Not Available lorazepam 0.5 mg tablet TAKE 1 TABLET BY MOUTH DAILY NEEDED FOR ANXIETY active Not Available Not Available No t Available triamcinolo ne acetonide 0.025 % topical cream SHEREEN AA BID FOR 2 WEEKS THEN PRN active Not Available Not Available No t Available losartan 25 mg tablet TAKE 1 TABLET BY MOUTH DAILY DIRECTED active Not Available Not Available No t Available diltiazem CD 120 mg capsule,ext ended release 24 hr TAKE ONE CAPSULE BY MOUTH TWICE DAILY active Not Available Not Available No t Available albuterol sulfate HFA 90 mcg/actuati on aerosol inhaler INHALE 2 PUFFS BY MOUTH EVERY 4 HOURS NEEDED FOR WHEEZING active Not Available Not Available No t Available QNASL 80 mcg/actuati on nasal aerosol spray active Not Available Not Available Not Available Wixela Inhub 250 mcg-50 mcg/dose powder for inhalation INL 1 PUFF PO 1 TO 2 TIMES PER DAY 08/16 completed Not Available Not Available Not Available Wixela Inhub 500 mcg-50 mcg/dose powder for inhalation USE 1 INHALATIO N PO BID RINSE MOUTH AND THROAT AFTER USE 05/14 /2021 completed Not Available Not Available Not Available Vitals Date Recorded Respiratory rate Heart rate Oxygen saturation Oxygen saturation in Arterial blood by Pulse oximetry Body temperature Systolic blood pressure Diastolic blood pressure Provider Name and Address Organization Details Last Updated DateTime 18 /min 92 /min 99 % 99 % 97.8 [degF] 138 mm[Hg] 82 mm[Hg] Not Available [facility] 11:53:54 Social History Question Answer Notes LastModified by Organizat ion Details LastModified Time Tobacco Smoking Status Never Smoker Chacha Thorpe, RAHUL [address], [place], [address], [place] [facility] 08/16/2020 11:54:51 Do You Have An Advance Directive? No Information not available 08/16/2020 What Is Your Code Status? Full Code Information not available 08/16/2020 Within The Past 12 Months, Has It Happened That The Food You Bought Just Didn't Last And You Didn't Have Money To Get More. No Information not available 08/16/2020 Within The Past 12 Months, Have You Worried That Your Food Would Run Out Before You Got Money To Buy More. No Information not available 08/16/2020 Fall Risk: Do You Feel Unsteady When Standing Or Walking? No Information not available 08/16/2020 We Know That How And When People Interact With Friends And Family Can Be Very Different From Person To Person. How Often Do You Have The Opportunity To See Or Talk To People That You Care About And Feel Close To? (Ex: Talking To Friends On The Phone Or Visiting Friends Or Family Or Going To [employer] Or Club Meetings) 1 Or 2 Times Per Week Information not available 08/16/2020 Excessive Alcohol Or Drug Use No Information not available 08/16/2020 We Know From Many Of Our Patients That Covering All Of Their Costs Can Be Difficult At Times. This Can Cause Stress And Impact Health. In The Past Year, Have You Been Unable To Get Any Of The Following When It Was Really Needed? No Information not available 08/16/2020 What Is Your Housing Situation Today? I Have Housing Information not available 08/16/2020 Would You Like Help Connecting To Resources? None Information not available 08/16/2020 Sex: Unknown Functional Status None recorded. Mental Status None recorded. Family History Relationship Description Onset Age of this Age Resolved Age Notes LastModified by Organization Details LastModified Time Father Atrial fibrillation Not available 11:54:28 Father Hypertensive disorder Not available 2020 11:54:35 Father Asthma Not available 11:54:47 Medical History Condition Response Diabetes N Coronary Artery Disease Y High Cholesterol N Cancer N Pulmonary Embolism N Stroke N Hypertension Y Asthma Y COPD N Depression N Kidney Disease Y Gynecological HistoryNo gynecological history recorded. Obstetrics History GPAL:G 0 P 0 0 0 0 Past Encounters Encounter ID Performer Location Encounter Start Date Encounter Closed Date Diagnosis/Indication Diagnosis SNOMED-CT Code Diagnosis ICD10 Code Diagnosis Note [id number] Chacha Thorpe NP [facility] [address] [facility] [place] [address] 08/16/2020 11:48:03 08/19/2020 12:42:23 Suspected COVID-19 689188231 Z03.89 Overview/H istory: Patient is an alert 45 year old female who presents with covid symptoms. She suffered a direct exposure from her son who resides in the home and resulted positive 2 days ago. Exam: Afebrile 97.8. HR tachy 92, S1, S2, patient anxious. Trachea midline, no JVD distention . Moist mucous membranes, no lymphadeno opal. LSCTA bilaterall y, no work of breathing. Abdomen soft, rounded, +BS x 4 quadrants. No CVA tenderness , no suprapubic tenderness . Normal neuro exam. DDx considered , but not limited to: covid likely given direct exposure Viral illness cannot be ruled out Pneumonia considered , no WOB, clear lung sounds. Work up/Results : Exam Plan/Discu ssion: Zofran 3 x daily for nausea as needed. Do not take at same time as other medication s. Wait 1/2 hour, hydrate well with electrolyt e solution. Support viral symptoms with Tylenol per box instructio ns. Provided CDC recommenda tions for Covid management . Discussed quarantine precaution s. Discussed acute s/s to report to ED/call 911. Patient is able to reiterate all discussed. No questions at this time. Proper Personal Protective Equipment (PPE), including {{gloves, eye protection , masks, and gowns, shoe covers elsa ves, eye protection and masks glov es, eye protection gloves, eye protection , N95 mask, gown, and shoe covers* lake rgical mask with face-shiel d, gloves, gown and shoe covers freddie gical mask with face-shiel d, gloves}} were donned and doffed approprzeina ibarra and all equipment cleaned using approved technique with germicidal disposable wipes prior to and after care of this patient according to [facility]'s infection prevention protocols. med rec completjed In order to obtain further informatio n and compare any laboratory results/va lues, I have accessed {{old patient records* p atient records on the [facility] [employer] [facility] r eviewed records with the PCP}}. This informatio n was pertinent in my medical decision making today. Nausea 979880358 R11.0 Health Concerns Section Related Observation LastModified by Organization Detai ls LastModified Time None Recorded Concern Status LastModified by Organization Details LastModified Time None Recorded Advance Directives Directive N: Payers Encounter Date Sequence Insurance Name Policy Number Policy Wiggins Covered Member ID Wiggins Member ID Guarantor Name 08/16/2020 1 *SELF PAY* Patti Drake 0000 Patti Vidal Notes Date Note Type Note Provider Name and Address Organization Details Recorded Time 08/16/2020 text/html Patient is a 45 year old alert female who presents with covid symptoms. She was directly exposed through a family member who resulted Covid positive yesterday. Patient symptoms include fatigue, chills, headache, dry cough, body aches, I feel like my heart rate is jumping up and down. Denies fever, denies chest pain, denies SOB. Patient medical history significant for asthma, PAC's and PVC's, HTN, kidney stones, anxiety, small brain aneurysm, vertigo, fibromyalgia. Chacha Thorpe, RAHUL [address], [place], [address], [place] [facility] 08/16/2020 13:12:29 OBGyn Episode No OBEpisode recorded.
--- OUTSIDE RECORDS SUMMARY | 2024-05-19 08:14 | XMS_ITS ---
[facility] Name [facility] Unknown History of Medication Use Medication Directions Dispensed Refills Start Date End Date Stat us ferrous sulfate 325 (65 FE) MG tablet Take 1 tablet (325 mg total) by mouth daily. Take 2 hours before or 4 hours after acid reducers. active methylPREDNISolone (MEDROL) 32 MG tablet Take 1 tablet (32 mg) 12 hours prior to procedure with contrast and 1 tablet (32 mg) 2 hours prior to procedure with contrast. 11/26/2023 active diphenhydrAMINE (BENADRYL) 50 MG tablet Take 1 tablet (50 mg total) by mouth once. Take 1 tablet (50 mg) 1 hours prior to procedure with contrast. 11/26/2023 active meclizine (ANTIVERT) 12.5 MG tablet Take 1 tablet (12.5 mg total) by mouth 3 (three) times a day as needed for dizziness. active ondansetron (ZOFRAN) 4 MG tablet Take 1 tablet (4 mg total) by mouth 3 times daily (every 8 hours) as needed for nausea or vomiting. active HYDROcodone-acetaminophe n (VICODIN) 5-300 MG per tablet Take 1 tablet by mouth 4 times daily (every 6 hours) as needed for severe pain. Max Daily Amount: 4 tablets active HYDROmorphone (DILAUDID) 2 MG tablet Take 1 tablet (2 mg total) by mouth 4 times daily (every 6 hours) as needed for severe pain. 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
--- OUTSIDE RECORDS SUMMARY | 2024-05-19 08:14 | XMS_ITS ---
Demographics Address [address] [place] [address] Mobile Email Address Preferred Language en Marital Status Unknown Islam Affiliation Unknown Race Unknown Ethnic Group or Author Organization Gómez Liu MD Address [address] [id number] Care Team Providers Care Cut Out Marker Name Role Phone Jane Dao Primary Care Provider [phone] REASON FOR VISIT Phentermine PA Renewal Encounters Encounter Location Date Provider Diagnosis Gómez Liu MD [address] [place] [address] [place] [phone] 05/03/2024 Jane Dao Plan Of Treatment Next Appt Details Provider Name:Jane Dao , 07/31/2024 08:30:00 AM, [address] [place] [address], [place] [address], [place], [place], [phone], Progress Notes * Patti SULLIVANDOB:[birth year] (49 yo F)Acc No.[id number]:05/03/2024 Patient:?Patti SULLIVAN :1975???Age:49 Y???Sex:Female Address:[address], [place] [address] * true * Date:? Generated for Printi cash/Beatriz/eTransmitting on:?05/19/2024 08:13 AM EST
--- OUTSIDE RECORDS SUMMARY | 2024-05-19 08:14 | XMS_ITS | Encounter Summary ---
Author Organization [facility] Address [address] [place] [address] Care Team Providers Care Sanforizing Machine Operator Name Role Phone Jane Dao MD Primary Care Provider [phone] Encounter Details Date Type Department Care Team (Late Contact Info) Description 04/20/2024 Telephone [facility] Surgical Oncology [place] [address] [facility] [address] [place] [phone] Hope Peralta MD [address] [facility] [address] [place] [address] Social History Tobacco Use Types Packs/Day Years Used Date Smoking Tobacco: Never Smokeless Tobacco: Never Alcohol Use Standard Drinks/Week Comments Yes 1 (1 standard drink = 0.6 oz pur e alcohol) not daily Sex and Gender Information Value Date Recorded Sex Assigned at Not on file Gender Identity Not on file Sexual Orientation Not on file documented as of this encounter Miscellaneous Notes * Telephone Encounter - Aggie Santacruz MA - 04/20/2024 1:12 PM EST Patient was called to be remained to schedule her ultrasound that was order back in December 2023 by for her next follow up on 05/29/24 ,called back number was left if patient has any questions . documented in this encounter Plan of Treatment Upcoming Encounters Date Type Department Care Team (Late Contact Info) Description 05/23/2024 9:00 AM EST Office Visit [facility] [address] [place] [address] Violet Suggs, MAINTENANCE CLERK [address] [facility] [address] [place] [address] 06/26/2024 8:30 AM EDT [facility] [address] [facility] [address] [place] [phone] Hope Peralta MD [address] [facility] [address] [place], [place] [id number] documented as of this encounter Visit Diagnoses Not on filedocumented in this encounter Care Teams Sanforizing Machine Operator Relationship Specialty Start Date End Date Jane Dao MD [address] [place] [address] PCP - General General Medicine 05/31/23 documented as of this encounter
--- OUTSIDE RECORDS SUMMARY | 2024-05-19 08:15 | XMS_ITS | Clinical Summary ---
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 Name Role Phone Jane Dao MD Primary Care Provider [phone] Allergies Active Allergy Reactions Criticality Noted Date Comments Amoxicillin-Pot Clavulanate Hives Medium 07/30/2015 Sulfamethoxazole-Trim ethoprim Swelling Medium 11/26/2023 Cephalexin Anaphylaxis High 11/26/2023 Codeine Other (See Comments) High 11/26/2023 LOC Perflutren Lipid Microsphere Anaphylaxis High 11/26/2023 Fluconazole Hives Medium 11/26/2023 Gadolinium Swelling Medium 11/26/2023 Gentamicin Anaphylaxis High 11/26/2023 Influenza Vaccines Anaphylaxis High 11/26/2023 Iodinated Contrast Media Anaphylaxis High 11/26/2023 Oxycodone-Acetaminoph en Shortness Of Breath High 11/26/2023 Respiratory depression Pineapple Anaphylaxis High 11/26/2023 Seafood Anaphylaxis High 11/26/2023 Midazolam GI Intolerance/Nausea/Vo miting Low 11/26/2023 Phaseolus Anaphylaxis High 11/26/2023 Medications Medication Sig Dispensed Refills Start Date End Date Status losartan (COZAAR) 50 MG tablet Take 1 tablet (50 mg total) by mouth daily. 07/29/2023 Active HYDROmorphone (DILAUDID) 2 MG tablet Take 1 tablet (2 mg total) by mouth 4 times daily (every 6 hours) as needed for severe pain. Active HYDROcodone-acetamin ophen (VICODIN) 5-300 MG per tablet Take 1 tablet by mouth 4 times daily (every 6 hours) as needed for severe pain. Active tamsulosin (FLOMAX) 0.4 MG capsule Take 1 capsule (0.4 mg total) by mouth daily. Active ondansetron (ZOFRAN) 4 MG tablet Take 1 tablet (4 mg total) by mouth 3 times daily (every 8 hours) as needed for nausea or vomiting. Active traMADol (ULTRAM) 50 MG tablet Take 1 tablet (50 mg total) by mouth 3 times daily (every 8 hours) as needed for severe pain. Active meclizine (ANTIVERT) 12.5 MG tablet Take 1 tablet (12.5 mg total) by mouth 3 (three) times a day as needed for dizziness. Active multivitamin Tab tablet Take 1 tablet by mouth daily. Active magnesium 30 MG tablet Take 1 tablet (30 mg total) by mouth 2 (two) times a day. Active Multiple Vitamins-Minerals (b flpqbli-T-I-zinc) tablet Take 1 tablet by mouth daily. Active ferrous sulfate 325 (65 FE) MG tablet Take 1 tablet (325 mg total) by mouth daily. Take 2 hours before or 4 hours after acid reducers. Active aspirin enteric coated (ECOTRIN LOW STRENGTH) 81 MG EC tablet Take 1 tablet (81 mg total) by mouth daily. Active methylPREDNISolone (MEDROL) 32 MG tabletIndications:Ga llbladder polyp Take 1 tablet (32 mg) 12 hours prior to procedure with contrast and 1 tablet (32 mg) 2 hours prior to procedure with contrast. 2 tablet 11/26/2023 Active diphenhydrAMINE (BENADRYL) 50 MG tabletIndications:Ga llbladder polyp Take 1 tablet (50 mg total) by mouth once. Take 1 tablet (50 mg) 1 hours prior to procedure with contrast. 1 tablet 11/26/2023 Active LORazepam (ATIVAN) 0.5 MG tabletIndications:Ga llbladder polyp,Claustrophobia Take 2 tablets (1 mg total) by mouth 1 time if needed (for MRI premedication). 2 tablet 11/26/2023 Active propranolol (INDERAL) 10 MG tablet Take 1 tablet (10 mg total) by mouth 3 (three) times a day. Active Active Problems Problem Noted Date Diagnosed Date Cirrhosis of liver without ascites 11/26/2023 Encounters Date Type Department Care Team Description 04/20/2024 Telephone [facility] Surgical Oncology [address] [place] [address] Hope Peralta MD from Last 3 Months Family History Medical History Relation Name Comments Anxiety disorder Daughter Asthma Daughter Asthma Father COPD Father Hypertension Father Skin cancer Father Tobacco Use Father Breast cancer Maternal Aunt Breast cancer Maternal Cousin Ovarian cancer Maternal Grandmother Uterine cancer Maternal Grandmother No Known Problems Mother Liver cancer Paternal Grandfather Pancreatic cancer Paternal Grandfather Colon cancer Paternal Grandmother Liver cancer Paternal Uncle Pancreatic cancer Paternal Uncle Anemia Sister Lupus Sister Migraines Sister Thyroid cancer Sister Asthma Son Relation Name Status Comments Daughter Alive Father Maternal Aunt Maternal Cousin Alive Maternal Grandfather Maternal Grandmother Mother Paternal Grandfather Paternal Grandmother Paternal Uncle Sister Son Alive Social History Tobacco Use Types Packs/Day Years Used Date Smoking Tobacco: Never Smokeless Tobacco: Never Tobacco Cessation:Counseling Given: Not Answered Alcohol Use Standard Drinks/Week Comments Yes 1 (1 standard drink = 0.6 oz pur e alcohol) not daily Sex and Gender Information Value Date Recorded Sex Assigned at Not on file Gender Identity Not on file Sexual Orientation Not on file Last Filed Vital Signs Vital Sign Reading Time Taken Comments Blood Pressure 115/64 12/27/2023 8:53 AM EDT Pulse 85 12/27/2023 8:53 AM EDT Temperature - - Respiratory Rate 16 09/07/2023 11:53 AM EDT Oxygen Saturation 98% 12/27/2023 8:53 AM EDT Inhaled Oxygen Concentration - - Weight 91.6 kg (202 lb) 12/27/2023 8:53 AM EDT Height 157.5 cm (5' 2 ) 12/27/2023 8:53 AM EDT Body Mass Index 36.95 12/27/2023 8:53 AM EDT Plan of Treatment Upcoming Encounters Date Type Department Care Team (Late st Contact Info) Description 05/23/2024 9:00 AM EST Office Visit [facility] Urology [address] [place] [phone] Violet Suggs, TITLE EXAMINER 499 [facility] 220 [place] [address] 06/26/2024 8:30 AM EDT Office Visit [facility] 7 [facility] 203 [place] [phone] Hope Peralta MD [address] [address] Health Maintenance Due Date Last Done Comments Hepatitis C Virus Screening 1975 HIV Screening 1986 DTaP/Tdap/Td Vaccines (1 - Tdap) 01/07/1992 Hepatitis B Vaccines (1 of 3 - 19+ 3-dose series) 01/07/1992 Pneumococcal Vaccines 50+ (1 of 2 - PCV) 01/07/1992 Pap Smear (Ages 21-65) 1994 Mammogram 2013 Colonoscopy 2018 Zoster (Shingles) Vaccine (1 of 2) 2023 Influenza Vaccine 11/04/2023 01/23/2015 COVID-19 Vaccine ( season) 2023, 11/28/2020 Guarantor Name Account Type Relation to Patient Date of Phone Billing Address Patti Drake Personal/Family Self 1975 [address] [place] [address] Care Teams Used Car Salesperson Relationship Specialty Start Date End Date Jane Dao MD [address] [place] [phone] PCP - General General Medicine 05/31/23
== END 2024-05-19 08:11 | disposition home or self-care (01) ==
LOC: HO.MAMMO 08:10
PROVIDERS: PCP Nurse Practitioner Family; Visit Provider Nurse Practitioner Family
DX: Z12.31 Encounter for screening mammogram for malignant neoplasm of breast (principal)
CPT/HCPCS: 77063; 77067

== ENCOUNTER → 2024-05-19 08:15 | Outpatient (BNV) | payer BC, SELFPAY | PROVIDERS: PCP Nurse Practitioner Family; Visit Provider Internal Medicine | DX: Z12.31 Encounter for screening mammogram for malignant neoplasm of breast (principal) | CPT/HCPCS: 77063; 77067 ==

== ENCOUNTER 2024-05-31 12:56 | Outpatient (REF) | payer BC, SELFPAY ==
--- NOTE | ~2024-05-31 | CT_ITS ---
EXAMINATION: CT ABDOMEN PELVIS WITHOUT IV CONTRAST HISTORY: N20.0 - Calculus of kidney COMPARISON: Comparison is made with the prior examination dated 02/23/2023. TECHNIQUE: CT scan of the abdomen and pelvis was performed without contrast using standard departmental protocol. Coronal and sagittal reformatted images were generated and reviewed. Oral contrast material was not administered per department protocol. This CT exam was performed with one or more of the following dose reduction techniques: automated exposure control, adjustment of the mA and/or kV according to patient size, use of iterative reconstruction technique. DLP: 680 mGy-cm FINDINGS: LOWER CHEST: The visualized lung bases are clear. There is no pleural effusion. CARDIOVASCULATURE: The heart is normal in size. There is no pericardial effusion. LIVER: The liver is normal in size and contour. Again seen are subcentimeter hypodense foci which likely represent cysts or hemangiomas but are too small to accurately characterize. GALLBLADDER / BILE DUCTS: The gallbladder is surgically absent. There is no intra or extrahepatic biliary ductal dilatation. SPLEEN: The spleen is normal in size and has an unremarkable unenhanced appearance. PANCREAS: The pancreas has an unremarkable unenhanced appearance. ADRENAL GLANDS: Unremarkable. KIDNEYS/RETROPERITONEUM: There is a 3 mm nonobstructing calculus at the upper pole of the right kidney. Multiple punctate nonobstructing calculi are noted at the upper pole of the left kidney. There is mild left hydronephrosis secondary to a 5 mm UPJ calculus. 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 LYMPH NODES: No retroperitoneal lymphadenopathy is identified in the abdomen or pelvis. VASCULATURE: The abdominal aorta is normal in caliber. MESENTERY/PERITONEUM: No free fluid. No masses. There is no free intraperitoneal gas. STOMACH: The stomach is collapsed, limiting evaluation. SMALL BOWEL: The small bowel is normal in caliber. COLON: The colon is unremarkable. APPENDIX: Normal. URINARY BLADDER/PELVIC ORGANS: The urinary bladder is collapsed, limiting evaluation. The patient is status post hysterectomy. BONES / SOFT TISSUES: No suspicious bony or soft tissue abnormalities. CT/CT kidney stone IMPRESSION: Mild left hydronephrosis secondary to a 5 mm UPJ calculus. Bilateral nephrolithiasis as described. Electronically signed by: David Renae MD 05/31/2024 02:13 PM PATRICIO
--- OUTSIDE RECORDS SUMMARY | 2024-05-31 15:52 | XMS_ITS ---
Author Organization Gómez Liu MD Address [address] [phone] Care Team Providers Care Wrapper Leaf Inspector Name Role Phone Jane Dao Primary Care Provider [phone] Allergies Allergen (clinical drug ingredient) Drug/Non Drug [...] Unknown Allergy Act leti almond allergenic extract [place] (Diagnostic) Unknown Drug Allergy Active Shellfish (FN) [...] Date Provider Diagnosis Gómez Liu MD 50 [facility] [place] [address] [place] [phone] 05/02/2024 Jane Dao Plan Of Treatment Medication Medication Name Sig Start Date Stop Date Notes Phentermine HCl 15 MG 1 capsule Oral Onc e a day for 30 days 05/02/2024 Next Appt Details Provider Name:Jane Dao , 07/31/2024 08:30:00 AM, 50 [facility], [address], [place], [place], [phone], Progress Notes * Patti SULLIVANDOB:[birth year] (49 yo F)Acc No.[id number]:05/02/2024 Patient:?Patti SULLIVAN :1975???Age:49 Y???Sex:Female Address:[address] [place] [phone] * Refills? Refill Phentermine HCl Capsule, 15 [...] true * Date:? Generated for Svitlana castrejon/Beatriz/Poppy on:?05/31/2024 03:52 PM EST
--- OUTSIDE RECORDS SUMMARY | 2024-05-31 15:52 | XMS_ITS | Encounter Summary ---
Author Organization [facility] Address [address] [place] [address] Care Team Providers Care Service Supervisor Name Role Phone Jane Dao MD Primary Care Provider [phone] Encounter Details Date Type Department Care Team (Late st Contact Info) Description 11/30/2023 Scanned Document [facility] Surgical Oncology [place] 85 [facility] 700 [place] [phone] Hope Peralta MD 85 [facility] 700 [place] [address] Social History Tobacco Use Types Packs/Day Years Used Date Smoking Tobacco: Never Smokeless Tobacco: Never Alcohol Use Standard Drinks/Week Comments Yes 1 (1 standard drink = 0.6 oz pur e alcohol) not daily Sex and Gender Information Value Date Recorded Sex Assigned at Female 05/23/2024 1:26 PM EST Gender Identity Female 05/23/2024 1:26 PM EST Sexual Orientation Heterosexual (straight) 05/23 1:26 PM EST documented as of this encounter Plan of Treatment Upcoming Encounters Date Type Department Care Team (Late st Contact Info) Description 06/07/2024 10:30 AM EST Telemedicine [facility] Urology [place] [address] [facility] [address] [place] [phone] Casey García MD 499 [facility] [address] [place] [address] 06/26/2024 8:30 AM EDT Office Visit [facility] [address] [facility] 203 [place] [phone] Hope Peralta MD 85 [facility] 700 [place] [address] documented as of this encounter Visit Diagnoses Not on filedocumented in this encounter Care Teams Service Supervisor Relationship Specialty Start Date End Date Jane Dao MD [address] [place] [phone] PCP - General General Medicine 05/31/23 documented as of this encounter
--- OUTSIDE RECORDS SUMMARY | 2024-05-31 15:52 | XMS_ITS ---
Demographics Address [address] [place] [address] Mobile Email Address Preferred Language en Marital Status Unknown Voodoo Affiliation Unknown Race Unknown Ethnic Group or Author Organization [facility] Address [address] [phone] Care Team Providers Care Transit Proof Machine Operator Name Role Phone Feliberto Jane Primary Care Provider REASON FOR VISIT Phentermine PA Renewal Encounters Encounter Location Date Provider Diagnosis Gómez Liu MD [address] [place] [address] [place] [phone] 05/03/2024 Jane Dao Plan Of Treatment Next Appt Details Provider Name:Jane Dao , 07/31/2024 08:30:00 AM, [address] [place] [address], [place] [address], [place], [place], [phone], Progress Notes * Patti SULLIVANDOB:[birth year] (49 yo F)Acc No.[id number]:05/03/2024 Patient:?Patti SULLIVAN :1975???Age:49 Y???Sex:Female Address:[address], [place] [address] * true * Date:? Generated for Printi cash/Beatriz/eTransmitting on:?05/31/2024 03:52 PM EST
--- OUTSIDE RECORDS SUMMARY | 2024-05-31 15:53 | XMS_ITS | Encounter Summary ---
Author Organization Formerly [facility] Address [address] [place] [address] Care Team Providers Care Hard Rock Miner Name Role Phone Jane Dao MD Primary Care Provider [phone] Reason for Referral * Diagnostic Imaging (Emergency) - Authorized Specialty Diagnoses / Procedures Referred By Evangelist maurice Referred To Contact Diagnoses Calculus of kidney Left flank pain Procedures CT Stone study w/o contrast Violet Suggs APRN [address] [place] [address] Referral ID Status Reason Start Date Expiration Date V isits Requested Visits Authorized [id number] Authorized 05/23/2024 04/04/2025 1 999 Reason for Visit * Reason Comments New Patient Calculus of Kidney Encounter Details Date Type Department Care Team (Late st Contact Info) Description 05/23/2024 9:00 AM EST Office Visit [facility] Urology [address] [place] [phone] Violet Suggs APRN [address] [place] [address] Calculus of kidney (Primary Dx); Left flank pain; Microscopic hematuria Social History Tobacco Use Types Packs/Day Years [...] PM EST documented as of this encounter Progress Notes * Violet Suggs, RING MAKING MACHINE OPERATOR - 05/23/2024 9:00 AM EST Images from the original note were not included. Assessment & Plan Patti Drake is a 49 y.o. female presenting in urological consultation for nephrolithiasis Patient presenting today for a second opinion on her kidney stones. She has had kidney stones [id number]. She states she has had multiple ESWL's and ureteroscopy with stent placements. Currently, sheis reporting left flank pain associated with bladder spasms. She has been taking Ibuprofen, Dilaudid, and Pyridium with minimal relief. She denies gross hematuria, N/V, fever, or chills. UA today shows moderate blood, no leuks, no nitrates. Will send a urine microscopy to determine howmany RBCs. Will request records from Dr. Neal's office of surgeries, stone analysis, and metabolic workups done. Unable to see any records in the chart. Since patient is reporting an acute onset of left flank pain and a long history of kidney stones, will have her go for a STAT CT Stone Study to rule out a ureteral stone. In the chart last NICK 04/09/22 showed two right renal calculi. No stones in the left kidney. Based on CT scan results, patient has already decided she would prefer to move forward with a surgical procedure. She states she does not do well with stents so she would prefer to not have a stent. She would like to meet a stone surgeon. Will have her follow up with Dr. García to discuss her options once CT scan completed. In the meantime, she will increase her water intake, add lemon in the water, strain her urine. I sent script for pain and nausea medication. She already has Flomax at home. Diagnoses and all orders for this visit: 1. Calculus of kidney - POCT Urinalysis Dipstick, Automated - CT Stone study w/o contrast; Future - CT Stone study w/o contrast - phenazopyridine (PYRIDIUM) 200 MG tablet; Take 1 tablet (200 mg total) by mouth 3 (three) times aday as needed for bladder spasms (bladder irritation). Dispense: 30 tablet; Refill: 1 - ibuprofen (MOTRIN) 800 mg tablet; Take 1 tablet (800 mg total) by mouth 3 times daily (every 8 hours) as needed for mild pain. Dispense: 30 tablet; Refill: 0 - HYDROmorphone (DILAUDID) 2 MG tablet; Take 1 tablet (2 mg total) by mouth 3 times daily (every 8 hours) as needed for severe pain. Max Daily Amount: 6 mg Dispense: 6 tablet; Refill: 0 2. Left flank pain - CT Stone study w/o contrast; Future - CT Stone study w/o contrast - phenazopyridine (PYRIDIUM) 200 MG tablet; Take 1 tablet (200 mg total) by mouth 3 (three) times aday as needed for bladder spasms (bladder irritation). Dispense: 30 tablet; Refill: 1 - ibuprofen (MOTRIN) 800 mg tablet; Take 1 tablet (800 mg total) by mouth 3 times daily (every 8 hours) as needed for mild pain. Dispense: 30 tablet; Refill: 0 - ondansetron (ZOFRAN) 4 MG tablet; Take 1 tablet (4 mg total) by mouth 3 times daily (every 8 hours) as needed for nausea or vomiting. Dispense: 10 tablet; Refill: 0 - HYDROmorphone (DILAUDID) 2 MG tablet; Take 1 tablet (2 mg total) by mouth 3 times daily (every 8 hours) as needed for severe pain. Max Daily Amount: 6 mg Dispense: 6 tablet; Refill: 0 3. Microscopic hematuria - Urinalysis with Microscopic Recent Results (from the past 24 hour(s)) POCT Urinalysis Dipstick, Automated Collection Time: 05/23/24 8:58 AM Result Value Ref Range Source, UA Voided Color, UA Yellow Yellow & Clear, Yellow Clarity, UA Clear Clear Glucose, UA Negative Negative Bilirubin, UA Negative Negative Ketones, UA Negative Negative Spec Grav, UA 1.020 1.005, 1.010, 1.015, 1.020, 1.025 Blood, UA Moderate (++) (A) Negative pH, UA 6.5 5.0, 5.5, 6.0, 6.5, 7.0, 7.5, 8.0 Protein, UA Negative Negative Urobilinogen, UA 0.2 0.2, 1.0 Nitrite, UA Negative Negative Leukocyte Esterase, UA Negative Negative Lot Number [id number] Yield Analyst Pass Pass Communication barriers and lifestyle preferences were addressed with the patient. The care plan including medications and self-management goals were reviewed to the best of the patient???s abilities.All questions and concerns were answered. Patient and/or family verbalized understanding of the plan of care. All questions and concerns discussed with patient. Subjective Today it was my pleasure to evaluate Patti Drake, who is a 49 y.o. female in urologic consultation for nephrolithiasis at her own request. History is obtained today from my review of the patient's medical records and/or appropriate imaging as well as directly from the patient. Patient presenting today for a second opinion on her kidney stones. She has had kidney stones [id number]. She states she has had multiple ESWL's and ureteroscopy with stent placements. She states shehad 7 procedures done within 2 years. She gets kidney stones in both kidneys. She is a patient of Dr. Sang Neal with [facility]. She states her stones are calcium stones. She has done a metabolic workup and has been on Vitamin B6 and Potassium citrate in the past. Currently, she is reporting left flank pain associated with bladder spasms. She has been taking Ibuprofen, Dilaudid, and Pyridium with minimal relief. She denies gross hematuria, N/V, fever, or chills. History: PMH: Past Medical History: Diagnosis Date Anxiety Asthma Cancer (HCC) 1977 on back Colon polyp Family history of cancer Fibromyalgia Genetic testing negative BRCA Hypertension Kidney stones Migraine Polyp of stomach Transfusion of blood product refused for sabianist reason Vertigo PSH: Past Surgical History: Procedure Laterality Date COLONOSCOPY 2021 ESOPHAGOGASTRODUODENOSCOPY 2023 GANGLION CYST EXCISION Left PARTIAL HYSTERECTOMY transvaginal SKIN LESION EXCISION 1977 canceroous on back URETHRAL SLING MEDS: Current Outpatient Medications: HYDROcodone-acetaminophen (VICODIN) 5-300 MG per tablet, Take 1 tablet by mouth 4 times daily (every 6 hours) as needed for severe pain., Disp: , Rfl: levalbuterol (XOPENEX HFA) 45 mcg/puff inhaler, INHALE 1 PUFF BY MOUTH EVERY 6 HOURS NEEDED, Disp: , Rfl: levocetirizine (Xyzal Allergy 24HR) 5 MG tablet, Take 1 tablet (5 mg total) by mouth., Disp: , Rfl: LORazepam (ATIVAN) 0.5 MG tablet, Take 2 tablets (1 mg total) by mouth 1 time if needed (for MRI premedication)., Disp: 2 tablet, Rfl: 0 losartan (COZAAR) 50 MG tablet, Take 1 tablet (50 mg total) by mouth daily., Disp: , Rfl: magnesium 30 MG tablet, Take 1 tablet (30 mg total) by mouth 2 (two) times a day., Disp: , Rfl: meclizine (ANTIVERT) 12.5 MG tablet, Take 1 tablet (12.5 mg total) by mouth 3 (three) times a day as needed for dizziness., Disp: , Rfl: methylPREDNISolone (MEDROL) 32 MG tablet, Take 1 tablet (32 mg) 12 hours prior to procedure with contrast and 1 tablet (32 mg) 2 hours prior to procedure with contrast., Disp: 2 tablet, Rfl: 0 Multiple Vitamins-Minerals (b [id number]-[id number]-L-[id number]) tablet, Take 1 tablet by mouth daily., Disp: , Rfl: multivitamin Tab tablet, Take 1 tablet by mouth daily., Disp: , Rfl: phentermine 15 MG capsule, Take 1 capsule (15 mg total) by mouth., Disp: , Rfl: propranolol (INDERAL) 10 MG tablet, Take 1 tablet (10 mg total) by mouth 3 (three) times a day., Disp: , Rfl: tamsulosin (FLOMAX) 0.4 MG capsule, Take 1 capsule (0.4 mg total) by mouth daily., Disp: , Rfl: traMADol (ULTRAM) 50 MG tablet, Take 1 tablet (50 mg total) by mouth 3 times daily (every 8 hours) as needed for severe pain., Disp: , Rfl: aspirin enteric coated (ECOTRIN LOW STRENGTH) 81 MG EC tablet, Take 1 tablet (81 mg total) by mouthdaily., Disp: , Rfl: diphenhydrAMINE (BENADRYL) 50 MG tablet, Take 1 tablet (50 mg total) by mouth once. Take 1 tablet (50 mg) 1 hours prior to procedure with contrast., Disp: 1 tablet, Rfl: 0 ferrous sulfate 325 (65 FE) MG tablet, Take 1 tablet (325 mg total) by mouth daily. Take 2 hours before or 4 hours after acid reducers., Disp: , Rfl: HYDROmorphone (DILAUDID) 2 MG tablet, Take 1 tablet (2 mg total) by mouth 3 times daily (every 8 hours) as needed for severe pain. Max Daily Amount: 6 mg, Disp: 6 tablet, Rfl: 0 ibuprofen (MOTRIN) 800 mg tablet, Take 1 tablet (800 mg total) by mouth 3 times daily (every 8 hours) as needed for mild pain., Disp: 30 tablet, Rfl: 0 ondansetron (ZOFRAN) 4 MG tablet, Take 1 tablet (4 mg total) by mouth 3 times daily (every 8 hours)as needed for nausea or vomiting., Disp: 10 tablet, Rfl: 0 phenazopyridine (PYRIDIUM) 200 MG tablet, Take 1 tablet (200 mg total) by mouth 3 (three) times a day as needed for bladder spasms (bladder irritation)., Disp: 30 tablet, Rfl: 1 FAMILY HX: Family History Problem Relation Age of Onset No Known Problems Mother Hypertension Father Skin cancer Father COPD Father Asthma Father Tobacco Use Father Lupus Sister Thyroid cancer Sister Migraines Sister Anemia Sister Ovarian cancer Maternal Grandmother Uterine cancer Maternal Grandmother Colon cancer Paternal Grandmother Pancreatic cancer Paternal Grandfather Liver cancer Paternal Grandfather Asthma Daughter Anxiety disorder Daughter Asthma Son Breast cancer Maternal Aunt 40 Pancreatic cancer Paternal Uncle Liver cancer Paternal Uncle Breast cancer Maternal Cousin 33 ROS: Gen: No unexplained weight change or fever MSK: No back pain or leg swelling Resp: No shortness of breath or wheezing CV: no chest pain or palpitations GI: No abdominal pain, vomiting, constipation or diarrhea Endo: No polyphagia or polydipsia Derm: + rashes Neuro: No headaches, seizures or syncope Psych: No mood changes or suicidal ideation : as per HPI If applicable, patient informed any positive review of systems that are new or have not been previously addressed should be discussed in further detail with PCP. Objective LABS: Recent Results (from the past 24 hour(s)) POCT Urinalysis Dipstick, Automated Collection Time: 05/23/24 8:58 AM Result Value Ref Range Source, UA Voided Color, UA Yellow Yellow & Clear, Yellow Clarity, UA Clear Clear Glucose, UA Negative Negative Bilirubin, UA Negative Negative Ketones, UA Negative Negative Spec Grav, UA 1.020 1.005, 1.010, 1.015, 1.020, 1.025 Blood, UA Moderate (++) (A) Negative pH, UA 6.5 5.0, 5.5, 6.0, 6.5, 7.0, 7.5, 8.0 Protein, UA Negative Negative Urobilinogen, UA 0.2 0.2, 1.0 Nitrite, UA Negative Negative Leukocyte Esterase, UA Negative Negative Lot Number [id number] Yield Analyst Pass Pass IMAGING: CT Scan 12/18/2021 Vitals: PHYSICAL EXAM: General Appearance: Alert, cooperative, no distress, appropriate for age Neurologic: Alert and oriented x3, gait steady Violet Suggs APRN 05/23/24 12:41 PM documented in this encounter Plan of Treatment Upcoming Encounters Date Type Department Care Team (Late st Contact Info) Description 06/07/2024 10:[address] [facility] Urology [place] [address] [facility] [address] [place] [address] Casey García MD [address] [facility] [address] [place] [address] 06/26/2024 8:30 AM EDT Office Visit [facility] [address] [facility] [address] [place] [phone] Hope Peralta MD [address] [facility] [address] [place] [address] Scheduled Orders Name Type Priority Associated Diagnoses Orde r Schedule CT Stone study w/o contrast Imaging STAT Calculus of kidney Left flank pain Expected: 05/23/2024, Expires: 05/23/2025 documented as of this encounter Procedures Procedure Name Priority Date/Time Associated Diagnosis Comments URINALYSIS WITH MICROSCOPIC Routine 05/23/2024 10:34 AM EST Microscopic hematuria POCT URINALYSIS DIPSTICK, AUTOMATED Routine 05/23/2024 8:58 AM EST Calculus of kidney documented in this encounter Results * (ABNORMAL) Urinalysis with Microscopic (05/23/2024 10:34 AM EST) Color YELLOW YELLOW [employer] Clarity CLEAR CLEAR [employer] Specific [place] 1.019 1.001 - 1.035 [employer] pH 6.5 5.0 - 8.0 [employer] Glucose, Urine, Random NEGATIVE NEGATIVE [employer] Bilirubin NEGATIVE NEGATIVE [employer] Ketones NEGATIVE NEGATIVE [employer] Blood 2+(A) NEGATIVE [employer] Protein NEGATIVE NEGATIVE [employer] Nitrite NEGATIVE NEGATIVE [employer] [facility] Leukocyte Esterase NEGATIVE NEGATIVE [employer] WBC NONE SEEN < OR = 5 /HPF [employer] RBC 10-20(A) < OR = 2 /HPF [employer] Squamous Epithelial Cells NONE SEEN < OR = 5 /HPF [employer] [facility] Bacteria NONE SEEN NONE SEEN /HPF [facility] Hyaline Cast NONE SEEN NONE SEEN /LPF [employer] Note [facility] Comment: This urine was analyzed for the presence of WBC, RBC, bacteria, casts, and other formed elements. Only those elements seen were reported. X-Specimen 16 Urine specimen obtained by clean catch procedure / Unknown 05/23/2024 10:34 AM EST 05/24/2024 3:23 AM EST Violet Suggs APRN URINE ORDERABLES [employer] [address] [place] [phone] * (ABNORMAL) POCT Urinalysis Dipstick, Automated (05/23/2024 8:58 AM EST) Source, UA Voided Color, UA Yellow Yellow & Clear, Yellow Clarity, UA Clear Clear Glucose, UA Negative Negative Bilirubin, UA Negative Negative Ketones, UA Negative Negative Spec Grav, UA 1.020 1.005, 1.010, 1.015, 1.020, 1.025 Blood, UA Moderate (++)(A) Negative pH, UA 6.5 5.0, 5.5, 6.0, 6.5, 7.0, 7.5, 8.0 Protein, UA Negative Negative Urobilinogen, UA 0.2 0.2, 1.0 Nitrite, UA Negative Negative Leukocyte Esterase, UA Negative Negative Lot Number [id number] Yield Analyst Pass Pass Urine 05/23/2024 8:58 AM EST Violet Suggs RING MAKING MACHINE OPERATOR POINT OF CARE TE ST ORDERABLES documented in this encounter Visit Diagnoses Diagnosis Calculus of kidney- Primary Left flank pain Abdominal pain, unspecified site Microscopic hematuria documented in this encounter Care Teams Hard [place] Miner Relationship Specialty Start Date End Date Jane Dao MD [address] [place] [id number] PCP - General General Medicine 05/31/23 documented as of this encounter
--- OUTSIDE RECORDS SUMMARY | 2024-05-31 15:53 | XMS_ITS | Encounter Summary ---
Author Organization Formerly [facility] Address [address] [place] [address] Care Team Providers Care Certified Dialysis Technician Name Role Phone Jane Dao MD Primary Care Provider [phone] Reason for Visit * Reason Comments Other Encounter Details Date Type Department Care Team (Late st Contact Info) Description 05/23/2024 Telephone [facility] Urology [address] [place] [phone] Violet Suggs, SEMICONDUCTOR WAFERS MARKER [address] [place] [address] Other Social History Tobacco Use Types Packs/Day Years [...] PM EST documented as of this encounter Miscellaneous Notes * Telephone Encounter - Silvina Joy - 05/30/2024 2:49 PM EST Patient does not require a prior authorization for CT scans per [place] @ [facility] Federal Plan Call ref. # [id number] Called and spoke to [facility] ([phone]) and informed her of this information. Called patient and informed her as well but she stated that she knew prior authorization was not required * Telephone Encounter - Vickie Stevens - 05/23/2024 1:27 PM EST Patient scheduled. * Telephone Encounter - Violet Suggs APRN - 05/23/2024 12:54 PM EST Can you have this patient schedule a virtual with Dr. García to discuss her kidney stones (preferably in 2 weeks) documented in this encounter Plan of Treatment Upcoming Encounters Date Type Department Care Team (Late st Contact Info) Description 06/07/2024 10:30 AM EST Telemedicine [facility] Urology [place] [address] [facility] [address] [place] [address] Casey García MD [address] [facility] [address] [place] [address] 06/26/2024 8:30 AM EDT Office Visit [facility] [address] [facility] [address] [place] [phone] Hope Peralta MD [address] [facility] [address] [place] [address] documented as of this encounter Visit Diagnoses Not on filedocumented in this encounter Care Teams Certified Dialysis Technician Relationship Specialty Start Date End Date Jane Dao MD [address] [place] [phone] PCP - General General Medicine 05/31/23 documented as of this encounter
--- OUTSIDE RECORDS SUMMARY | 2024-05-31 15:53 | XMS_ITS | Encounter Summary ---
Author Organization [facility] Address [address] [place] [address] Care Team Providers Care Drafting Layout Man Name Role Phone Jane Dao MD Primary Care Provider [phone] Encounter Details Date Type Department Care Team (Latest Contact Info) Description 05/23/2024 Travel Social History Tobacco Use Types Packs/Day Years [...] Info) Description 06/07/2024 10:30 AM EST Telemedicine [facility] Urology [address] [place] [phone] Casey García MD [address] [facility] [address] [place] [address] 06/26/2024 8:30 AM EDT Office Visit [facility] [address] [facility] [address] [place] [phone] Hope Peralta MD [address] [facility] [address] [place] [address] documented as of this encounter Visit Diagnoses Not on filedocumented in this encounter Care Teams Drafting Layout Man Relationship Specialty Start Date End Date Jane Dao MD [address] [place] [address] PCP - General General Medicine 05/31/23 documented as of this encounter
--- OUTSIDE RECORDS SUMMARY | 2024-05-31 15:53 | XMS_ITS ---
Demographics Address [address] [place] [address] Mobile Email Address Preferred Language en Marital Status Unknown Latter Day Affiliation Unknown Race Unknown Ethnic Group or Author Organization Gómez Liu MD Address [address] [phone] Care Team Providers Care Petrography Teacher Name Role Phone Jane Dao Primary Care Provider REASON FOR VISIT Clinical Concern Encounters Encounter Location Date Provider Diagnosis Gómez Liu MD [address] [place] [address] [place] [phone] 04/10/2024 Jane Dao Plan Of Treatment Next Appt Details Provider Name:Jane Dao , 07/31/2024 08:30:00 AM, [address] [place] [address], [place] [address], [place], [place], [phone], Progress Notes * Patti SULLIVANDOB:[birth year] (49 yo F)Acc No.[id number]:04/10/2024 Patient:?Patti SULLIVAN :1975???Age:49 Y???Sex:Female Address:[address], [place] [address] * true * Date:? Generated for Printi ng/Fajuan fg/eTransmitting on:?05/31/2024 03:52 PM EST
--- OUTSIDE RECORDS SUMMARY | 2024-05-31 15:53 | XMS_ITS | Clinical Summary ---
Author Organization [facility] Address [address] [place] [address] Care Team Providers Care Liaison Planner Name Role Phone Jane Dao MD Primary Care Provider [phone] Allergies Active Allergy Reactions Criticality Noted Date [...] mg total) by mouth daily. 07/29/2023 Active HYDROcodone-aceta minophen (VICODIN) 5-300 MG per tablet Take 1 tablet by mouth 4 times daily (every 6 hours) as needed for severe pain. Active tamsulosin (FLOMAX) 0.4 MG capsule Take 1 capsule (0.4 mg total) by mouth daily. Active traMADol (ULTRAM) 50 MG tablet Take [...] times a day. Active Multiple Vitamins-Minerals (b dnlgylc-W-Y-zinc) tablet Take 1 tablet by mouth daily. Active methylPREDNISolon e (MEDROL) 32 MG tabletIndications :Gallbladder polyp Take 1 tablet (32 mg) 12 hours prior to procedure with contrast and 1 tablet (32 mg) 2 hours prior to procedure with contrast. 2 tablet 11/26/2023 Active diphenhydrAMINE (BENADRYL) 50 MG tabletIndications :Gallbladder polyp Take 1 tablet (50 mg total) by mouth once. Take 1 tablet (50 mg) 1 hours prior to procedure with contrast. 1 tablet 11/26/2023 Active LORazepam (ATIVAN) 0.5 MG tabletIndications :Gallbladder polyp,Claustropho poppy Take 2 tablets (1 mg total) by mouth 1 time if needed (for MRI premedication). 2 tablet 11/26/2023 Active propranolol (INDERAL) 10 MG tablet Take 1 tablet (10 mg total) by mouth 3 (three) times a day. Active levocetirizine (Xyzal Allergy 24HR) 5 MG tablet Take 1 tablet (5 mg total) by mouth. 03/15/2023 Active phentermine 15 MG capsule Take 1 capsule (15 mg total) by mouth. Active levalbuterol (XOPENEX HFA) 45 mcg/puff inhaler INHALE 1 PUFF BY MOUTH EVERY 6 HOURS NEEDED 09/16/2023 Active phenazopyridine (PYRIDIUM) 200 MG tabletIndications :Calculus of kidney,Left flank pain Take 1 tablet (200 mg total) by mouth 3 (three) times a day as needed for bladder spasms (bladder irritation). 30 tablet 1 05/23/2024 Active ibuprofen (MOTRIN) 800 mg tabletIndications :Calculus of kidney,Left flank pain Take 1 tablet (800 mg total) by mouth 3 times daily (every 8 hours) as needed for mild pain. 30 tablet 05/23/2024 Active ondansetron (ZOFRAN) 4 MG tabletIndications :Left flank pain Take 1 tablet (4 mg total) by mouth 3 times daily (every 8 hours) as needed for nausea or vomiting. 10 tablet 05/23/2024 Active HYDROmorphone (DILAUDID) 2 MG tabletIndications :Calculus of kidney,Left flank pain Take 1 tablet (2 mg total) by mouth 3 times daily (every 8 hours) as needed for severe pain. Max Daily Amount: 6 mg 6 tablet 05/23/2024 Active HYDROmorphone (DILAUDID) 2 MG tablet Take 1 tablet (2 mg total) by mouth 4 times daily (every 6 hours) as needed for severe pain. 05/23/2024 Discontinued (Reorder) ondansetron (ZOFRAN) 4 MG tablet Take 1 tablet (4 mg total) by mouth 3 times daily (every 8 hours) as needed for nausea or vomiting. 05/23/2024 Discontinued (Therapy completed) ferrous sulfate 325 (65 FE) MG tablet Take 1 tablet (325 mg total) by mouth daily. Take 2 hours before or 4 hours after acid reducers. 05/23/2024 Discontinued (Therapy completed) aspirin enteric coated (ECOTRIN LOW STRENGTH) 81 MG EC tablet Take 1 tablet (81 mg total) by mouth daily. 05/23/2024 Discontinued (Therapy completed) Active Problems Problem Noted Date Diagnosed Date Cirrhosis of liver without ascites 11/26/2023 Encounters Date Type Department Care Team Description 05/23/2024 9:00 AM EST Office Visit [facility] Urology [address] [place] [phone] Violet Suggs APRN Calculus of kidney (Primary Dx); Left flank pain; Microscopic hematuria 05/23/2024 Telephone [facility] Urology [address] [place] [phone] Violet Suggs APRN Other 05/23/2024 Travel 04/20/[address] [facility] Surgical Oncology [address] [place] [phone] Hope Peralta MD from Last 3 Months [...] Orientation Heterosexual (straight) 05/23 1:26 PM EST Last Filed Vital Signs Vital Sign Reading [...] Info) Description 06/07/2024 10:30 AM EST Telemedicine [facility] Urology [place] [address] [facility] [address] [place] [phone] Casey García MD [address] [facility] [address] [place] [address] 06/26/2024 8:30 AM EDT Office Visit [facility] [address] [facility] [address] [place] [address] Hope Peralta MD [address] [facility] [address] [place] [address] Health Maintenance Due Date Last Done Comments [...] 01/23/2015 COVID-19 Vaccine ( season) 2023, 11/28/2020 Procedures Procedure Name Priority Date/Time Associated Diagnosis Comments URINALYSIS WITH MICROSCOPIC Routine 05/23/2024 10:34 AM EST Microscopic hematuria POCT URINALYSIS DIPSTICK, AUTOMATED Routine 05/23/2024 8:58 AM EST Calculus of kidney from Last 3 Months Results * (ABNORMAL) Urinalysis with Microscopic (05/23/2024 10:34 AM EST) Color YELLOW YELLOW [facility] Clarity CLEAR CLEAR [email or web address] Specific [place] 1.019 1.001 - 1.035 [email or web address] pH 6.5 5.0 - 8.0 [email or web address] Glucose, Urine, Random NEGATIVE NEGATIVE [email or web address] Bilirubin NEGATIVE NEGATIVE [email or web address] Ketones NEGATIVE NEGATIVE [email or web address] Blood 2+(A) NEGATIVE [email or web address] Protein NEGATIVE NEGATIVE [email or web address] Nitrite NEGATIVE NEGATIVE [email or web address] Leukocyte Esterase NEGATIVE NEGATIVE [email or web address] WBC NONE SEEN < OR = 5 /HPF [facility] RBC 10-20(A) < OR = 2 /HPF [facility] Squamous Epithelial Cells NONE SEEN < OR = 5 /HPF [facility] Bacteria NONE SEEN NONE SEEN /HPF [facility] Hyaline Cast NONE SEEN NONE SEEN /LPF [facility] Note [facility] Comment: This urine was analyzed for the presence of WBC, RBC, bacteria, casts, and other formed elements. Only those elements seen were reported. X-Specimen 16 Urine specimen obtained by clean catch procedure / Unknown 05/23/2024 10:34 AM EST 05/24/2024 3:23 AM EST Violet Suggs APRN URINE ORDERABLES [employer] [address] [place] [address] * (ABNORMAL) POCT Urinalysis Dipstick, Automated (05/23/2024 [...] Leukocyte Esterase, UA Negative Negative Lot Number [id number] [employer] Urine 05/23/2024 8:58 AM EST Violet Suggs APRN POINT OF CARE TE [facility]LES from Last 3 Months Guarantor Name Account Type Relation to Patient Date of Phone Billing Address Patti Drake Personal/Family Self 1975 [address] [place] [id number] Care Teams Liaison Planner Relationship Specialty Start Date End Date Jane Dao MD [address] [place] [address] [phone] PCP - General General Medicine 05/31/23
== END 2024-05-31 12:57 | disposition home or self-care (01) ==
LOC: HO.CT 12:56
PROVIDERS: PCP Nurse Practitioner Family; Visit Provider Nurse Practitioner Family
DX: N20.0 Calculus of kidney (principal)
CPT/HCPCS: 74176

== ENCOUNTER → 2024-05-31 12:58 | Outpatient (BNV) | payer BC, SELFPAY | PROVIDERS: PCP Nurse Practitioner Family; Visit Provider Radiology Diagnostic Radiology | DX: N20.0 Calculus of kidney (principal) | CPT/HCPCS: 74176 ==

== ENCOUNTER 2024-06-16 13:34 | Observation (INO) | payer BC, SELFPAY ==
--- NOTE | ~2024-06-16 | US_ITS ---
EXAMINATION: US RETROPERITONEAL LIMITED (RENAL ONLY) CLINICAL INFORMATION: Severe left flank pain COMPARISON: None available. TECHNIQUE: Routine ultrasound imaging of kidneys was performed FINDINGS: RIGHT KIDNEY: 10.3 x 4.1 x 3.2 cm (SAG x AP x TRV). The kidney is normal in size, contour, and echogenicity. Renal cortical thickness is normal. There are a few echogenic foci. 1. Upper pole stone measures 0.4 x 0.1 cm. 2. Mid pole stone measures 0.4 x 0.2 cm. 3. Mid pole stone measuring 0.3 x 0.2 x 0.3 cm. There is no caliectasis or hydronephrosis. LEFT KIDNEY: 11.1 x 5.4 x 4.5 cm. cm (SAG x AP x TRV). The kidney is normal in size, contour, and echogenicity. Renal cortical thickness is normal. There are a few echogenic stones. 1. Upper pole stone measures 0.4 x 0.2 x 0.3 cm. 2. Mid pole stone measures 0.3 x 0.2 cm. There is mild pelvic fullness/mild hydronephrosis. The bladder was not imaged. US/US renal BI IMPRESSION: Bilateral echogenic stones. There is mild pelvic fullness or hydroureter kidney. No hydronephrosis on the right side... Electronically signed by: Jamil Murphy MD 06/16/2024 05:13 PM EDT
[2024-06-16 13:42] VITALS: BP 168/88; PULSE 78; O2SAT 99
[2024-06-16 13:49] VITALS: BP 175/104; PULSE 97; RESP 20; TEMP 36.6; O2SAT 98; BMI 35.7
[2024-06-16 14:19] LABS: MANUAL DIFF FLAG NO
--- NOTE | 2024-06-16 14:23 | ED.FEMALEGU ---
HPI - Female Genitourinary General Chief complaint: Urogenital-Female Stated complaint: KIDNEY INF? PER EMS Time Seen by Provider: 06/16/24 14:19 Source: patient, RN notes reviewed and old records reviewed Mode of arrival: ambulatory Limitations: no limitations History of Present Illness ED Provider: Rebecca Lockwood PA-C HPI Narrative: 49 yo female with history of kidney stones and recent lithotripsy and left sided ureteral stent placement at [facility] 06/14 complicated by UTI and stent migration and self-removal at home today who presents to the ER for evaluation. She states she was seen in the ER at yesterday for ongoing pain after the procedure where they found her to have a UTI and prescribed ciprofloxacin. She reports She reports taking her 2mg oral dilaudid today and still has severe left sided flank pain. She took 2 doses of the ciprofloxacin so far. She is worried she is going to get septic if she is unable to take her PO antibiotics. She has vomited several times today from the pain. She was found to have a constant leak of urine and could feel the stent migrating out of her urethra today. She called Urology and they instructed her to pull it out at home and bring it with her to her follow up appointment next Wednesday. She pulled it out intact. She has been unable to urinate since. MD elicited complaint: back pain, flank pain and other (inability to urinate) Onset (ago): day(s) (2) Location of symptoms: flank Severity: severe Female Urogenital Radiation: LLQ Severity scale (1-10): >10 Quality of pain: sharp Consistency: constant Vaginal bleeding: none Urinary symptoms: Difficulty Urinating Relieving factors: none Associated symptoms: nausea and vomiting Treatment prior to arrival: none Patient : No Related Data Home Medications ?Medication ?Instructions ?Recorded ?Confirmed losartan 50 mg tablet 50 mg PO DAILY 04/24/22 06/16/24 albuterol sulfate 90 mcg/actuation 2 puff inhalation Q4H PRN wheezing 08/06/22 06/16/24 aerosol inhaler ibuprofen 800 mg tablet 800 mg PO Q8H PRN Pain 08/19/22 06/16/24 tamsulosin 0.4 mg capsule (Flomax) 0.4 mg PO DAILY 06/28/23 06/16/24 ciprofloxacin HCl 500 mg tablet 500 mg PO BID 06/16/24 06/16/24 hydromorphone 2 mg tablet 2 mg PO BID PRN Severe Pain (Scale 06/16/24 06/16/24 Score 7-10) magnesium 200 mg tablet 300 mg PO DAILY 06/16/24 06/16/24 phenazopyridine 200 mg tablet 200 mg PO TID 06/16/24 06/16/24 phentermine 15 mg capsule 15 mg PO DAILY 06/16/24 06/16/24 vitamin B complex 1 tab PO DAILY 06/16/24 06/16/24 Allergies Allergy/AdvReac Type Severity Reaction Status Date / Time cephalexin [CEPHALEXIN] Allergy Severe SWELLING Verified 06/16/24 13:53 clavulanic acid Allergy Severe ANAPHYLAXIS Verified 06/16/24 13:53 [From AUGMENTIN] clindamycin [CLINDAMYCIN] Allergy Severe TONGUE Verified 06/16/24 13:53 SWELLING codeine Allergy Severe PASSED OUT Verified 06/16/24 13:53 influenza virus vaccine, Allergy Severe ANAPHYLAXIS Verified 06/16/24 13:53 specific [FLU VACCINE] perflutren [From Definity] Allergy Severe hives/anaph Verified 06/16/24 13:53 ylaxis seafood Allergy Severe Anaphylaxis Verified 06/16/24 13:53 fluconazole Allergy Intermediate HIVES Verified 06/16/24 13:53 gentamicin [GENTAMICIN] Allergy Intermediate RASH Verified 06/16/24 13:53 Iodinated Contrast Media Allergy Intermediate Hives Verified 06/16/24 13:53 [IV Contrast Dye] oxycodone Allergy Intermediate SOB Verified 06/16/24 13:53 sulfamethoxazole Allergy Mild swelling Verified 06/16/24 13:53 [From Bactrim] trimethoprim [From Bactrim] Allergy Mild swelling Verified 06/16/24 13:53 pineapple Allergy Anaphylaxis Verified 06/16/24 13:53 scopolamine AdvReac Severe Vomiting Verified 06/16/24 13:53 midazolam AdvReac Intermediate Vomiting Verified 06/16/24 13:53 Review of Systems Review of Systems: Yes all other systems are reviewed and are negative [facility] Past Medical History Medical History Liver cyst History of COVID-19 Post-operative nausea and vomiting NAFLD (nonalcoholic fatty liver disease) Morbid obesity with BMI of 40.0-44.9, adult H/O ganglion cyst Essential hypertension NSVT (nonsustained ventricular tachycardia) Vertigo Kidney stones Migraine Carotid artery disease Fibromyalgia HTN (hypertension) Asthma PAC (premature atrial contraction) PVC (premature ventricular contraction) Surgical History History of endometrial ablation Hx of cystoscopy Hx of lithotripsy H/O esophagogastroduodenoscopy H/O colonoscopy History of partial hysterectomy Family History Family History Father Skin cancer Cardiovascular disease Myocardial infarction Hypertension IBS (irritable bowel syndrome) Mother Hypertension Sister Myocardial infarction Hypertension Heartburn Paternal Uncle Colon cancer Paternal Grandmother Colon cancer Social History Social History Household Members: Children Housing: Apartment Do you presently have visiting nurse or other home services: No Alcohol intake: current Alcohol intake frequency: holidays/special occasions only Patient Tobacco Use Status: Never used Tobacco Smoked in Last 30 Days: No Second Hand Smoke Exposure: No Use of substances other than those prescribed or required for medical reasons: No Advance Directives: Yes Advance Directives on File: Yes Advance Directives Date on File: 08/21/21 Nutrition Risks: No Nutritional Risk Patient : No service: No Current occupational status: employed Physical Exam Vital Signs: Vital Signs: Last Vital Signs Temp 98.4 F 06/17/24 05:57 Pulse 80 06/17/24 05:57 Resp 18 06/17/24 05:57 BP 112/86 06/17/24 05:57 Pulse Ox 95 06/17/24 05:57 O2 Del Method Room Air 06/17/24 05:57 BMI result Body Mass Index 35.7 Appearance: middle aged woman laying on her side, crying, in acute pain, uncomfortable Head: normocephalic, atraumatic. Eyes: Pupils equal, round and reactive to light. ENT: Pharynx normal. No tonsillar swelling or exudate. Neck: Normal inspection. Neck supple. CVS: Normal heart rate and rhythm. Pulses normal. Respiratory: No respiratory distress. Breath sounds normal. Abdomen: Soft with left sided tenderness, +CVA tenderness on the left +BS x4 Skin: Skin warm and dry. Normal skin color. Normal skin turgor. No rashes. Extremities: No lower extremity edema. No joint swelling. Neuro/psych: Oriented X 3. moving all extremities, nonfocal. Normal speech and cognition. Course Course Course Narrative: US renal BI IMPRESSION: Bilateral echogenic stones. There is mild pelvic fullness or hydroureter kidney. No hydronephrosis on the right side. > case discussed with Urology, Dr. Coffey who believes patient does not require admission at this time. >1850--on re-evaluation patient reports continued pain, has received multiple doses of IV Dilaudid in the ED without improvement. Will discuss case with hospitalist for admission for pain control Medications Administered Generic Name Dose Route Start Last Admin Trade Name Freq PRN Reason Stop Dose Admin Enoxaparin Sodium 40 mg 06/16/24 21:00 06/16/24 21:31 Enoxaparin Sodium 40 Mg/0.4 Ml Syringe SUBCUT 40 mg Q24H ELSA Administration Sodium Chloride 3 ml 06/17/24 00:00 06/17/24 07:06 0.9 % Sodium Chloride Flush 3 Ml Syringe IVFLUSH Not Given QSHIFT ELSA Discontinued Medications Generic Name Dose Route Start Last Admin Trade Name Freq PRN Reason Stop Dose Admin Hydromorphone HCl 1 mg 06/16/24 14:26 06/16/24 14:34 Hydromorphone Hcl 1 Mg/Ml Syringe IVPUSH 06/16/24 14:27 1 mg ONCE ONE Administration Protocol Hydromorphone HCl 1 mg 06/16/24 14:51 06/16/24 15:06 Hydromorphone Hcl 1 Mg/Ml Syringe IVPUSH 06/16/24 14:52 1 mg ONCE ONE Administration Protocol Hydromorphone HCl 1 mg 06/16/24 18:50 06/16/24 19:10 Hydromorphone Hcl 1 Mg/Ml Syringe IVPUSH 06/16/24 18:51 1 mg ONCE ONE Administration Protocol Lactated Ringer's 1,000 mls @ 999 mls/hr 06/16/24 14:30 06/16/24 15:50 Lr IV 06/16/24 15:30 Infused .Q1H1M ELSA Infusion Levofloxacin 750 mg in 150 mls @ 100 mls/hr 06/16/24 15:31 06/16/24 18:37 Levaquin IV 06/16/24 17:00 Infused ONCE ONE Infusion Lactated Ringer's 1,000 mls @ 100 mls/hr 06/16/24 21:00 06/17/24 07:37 Lr IVCONT 06/17/24 06:59 Infused .Q10H ELSA Infusion Ketorolac Tromethamine 15 mg 06/16/24 14:26 06/16/24 14:34 Ketorolac Tromethamine 15 Mg/Ml Vial IVPUSH 06/16/24 14:27 15 mg ONCE ONE Administration Metoclopramide HCl 10 mg 06/16/24 19:17 06/16/24 19:59 Metoclopramide Hcl 10 Mg/2 Ml Vial IVPUSH 06/16/24 19:18 10 mg ONCE ONE Administration Ondansetron HCl 4 mg 06/16/24 14:36 06/16/24 14:48 Ondansetron Hcl 4 Mg/2 Ml Vial IVPUSH 06/16/24 14:37 4 mg ONCE ONE Administration Oxybutynin Chloride 10 mg 06/16/24 15:30 06/16/24 16:42 Oxybutynin Chloride Er 5 Mg Tab.Er.24 PO 06/16/24 15:31 10 mg ONCE ONE Administration Prochlorperazine Edisylate 5 mg 06/16/24 21:05 06/16/24 21:31 Prochlorperazine Edisylate 10 Mg/2 Ml Vial IVPUSH 06/16/24 21:06 5 mg ONCE ONE Administration Medical Decision Making Medical Decision Making MDM Narrative: 49 yo female with history of kidney stones s/p lithotripsy and left sided stent placement at [facility] 06/14, complicated by UTI and stent migration and self-removal at home today presenting with severe left sided flank pain and vomiting. Seen at ER yesterday and started on ciprofloxacin for UTI with bacteria and 5WBC in her urine. Her labs at that time also showed 18.2K and 16% bands. Patient given dilaudid 1mg x2 for severe pain. also given toradol and zofran. renal u/s ordered and pending. signed out to shaan TAN who will reassess pain, f/u with urology and u/s read Differential Diagnosis Differential Diagnoses: The differential diagnosis associated with the presentation includes UTI, pyelonephritis, ureteral stone, hydronephrosis, ureteral damage Admission/Observation Consideration of admission/observation: Escalation of care including admission/observation considered Consult Healthcare Provider Management of the patient was discussed with: [facility] Yarn Examiner Dr. Coffey Lab Data MDM Lab Attestation statement: I reviewed the patient's lab results. leukocytosis - improving 06/17/24 03:46 06/17/24 03:46 Labs: Lab Results 06/16/24 06/16/24 Range/Units 14:15 16:36 WBC 12.7 H (4.8-10.8) X10*3/uL RBC 4.41 (4.20-5.50) X10*6/uL Hgb 12.8 (12.0-16.0) g/dl Hct 37.5 (37.0-47.0) % MCV 85.0 (80.0-98.0) fL MCH 29.0 (27.0-33.0) pg MCHC 34.1 (31.0-35.0) g/dl RDW 12.9 (11.0-16.0) % Plt Count 216 (160-400) X10*3/uL MPV 10.4 (9.4-12.3) fL Immature Gran % (Auto) 0.8 H (0.0-0.4) % Neut % (Auto) 59.5 (45-73) % Lymph % (Auto) 31.2 (20-40) % [place] % (Auto) 6.4 (2-11) % Eos % (Auto) 1.3 (0-4) % Baso % (Auto) 0.8 (0-2) % Lymph # (Auto) 4.0 (1.2-4.9) X10*3/uL [place] # (Auto) 0.8 (0.1-1.2) X10*3/uL Eos # (Auto) 0.2 (0.0-0.4) X10*3/uL Baso # (Auto) 0.1 (0.0-0.2) X10*3/uL Abs Immat Gran (auto) 0.10 H (0.00-0.03) X10*3/uL Absolute Neuts (auto) 7.5 (2.0-8.3) x10*3/uL Absolute Nucleated RBC 0.000 (0.0-0.012) X10*3/uL Nucleated RBC % (auto) 0.0 (0.0-0.2) /100WBC Sodium 143 (135-145) mmol/L Potassium 3.3 (3.3-5.1) mmol/L Chloride 110 H (96-108) mmol/L Carbon Dioxide 23 (22-29) mmol/L Anion Gap 13 (12-20) BUN 17 H (9-16) mg/dL Creatinine 0.87 (0.5-1.4) mg/dL Estim Creat Clear Calc 79.0 Estimated GFR > 60 Random Glucose 93 (60-115) mg/dL Lactic Acid 1.1 (0.5-2.0) mmol/L Calcium 8.8 (8.4-10.2) mg/dL Total Bilirubin 0.7 (0.0-1.0) mg/dL AST 25 (5-31) U/L ALT 40 H (0-31) U/L Alkaline Phosphatase 125 H (39-117) U/L Total Protein 7.6 (6.5-8.0) g/dL Albumin 3.9 (3.5-5.0) g/dL Urine Color [place] A Urine Appearance Clear Urine pH 7.0 (5.0-9.0) Ur Specific [place] 1.020 (1.005-1.025) Urine Protein 100 (2+) H (Neg-Trace) mg/dL Urine Glucose (UA) 100 H (Negative) mg/dL Urine Ketones Trace (Negative) mg/dL Urine Blood See Note (Negative) Urine Nitrite See Note (Negative) Ur Leukocyte Esterase See Note (Negative) Urine RBC >20 H (0-2) /HPF Urine WBC 0-5 (0-5) /HPF Ur Squamous Epith Cells 0-2 (0-2) /HPF Urine Bacteria None Seen (None Seen) Hyaline Casts 0-2 (0-2) /LPF Radiology Impression Discussion of test interpretation with radiology: I have reviewed the radiologist's reading. Radiologist Impression: US/US renal BI IMPRESSION: Bilateral echogenic stones. There is mild pelvic fullness or hydroureter kidney. No hydronephrosis on the right side. Independent Historian Clinical information obtained from an independent historian. History obtained from or confirmed by: Spouse External Record Review External record reviewed: Outpatient record, Prior outpatient labs, Prior outpatient radiology and Outside ED record Tests considered The following testing was considered but not selected: CT scan abd/pelvis considered Prescription Management I considered prescription management with: Pain Medication and Antibiotic Chronic Conditions Patient?s care impacted by: Hypertension and Other (kidney stones, [place]) Critical Care Time Critical Care Time Critical Care Time: Yes Total Critical Care Time: 40 Attestation: I have personally provided critical care time exclusive of time spent on separately billable procedures. Time includes review of lab data, radiology results, discussion with consultants, and monitoring for potential decompensation. Intervention performed as documented. Discharge Plan Discharge Clinical Impression: Acute flank pain Patient Disposition: Admitted As Inpatient
[2024-06-16 14:24] LABS: Basophils Absolute Auto 0.1 X10*3/uL (0.0-0.2); Basophils Percent Auto 0.8 % (0-2); Eosinophils Absolute Auto 0.2 X10*3/uL (0.0-0.4); Eosinophils Percent Auto 1.3 % (0-4); Hematocrit 37.5 % (37.0-47.0); Hemoglobin 12.8 g/dl (12.0-16.0); Imm Gran Pct Auto 0.8 % (0.0-0.4); Lymphocytes Percent Auto 31.2 % (20-40); Mean Corpuscular HGB Conc 34.1 g/dl (31.0-35.0); Mean Platelet Volume 10.4 fL (9.4-12.3); Monocytes Absolute Auto 0.8 X10*3/uL (0.1-1.2); Monocytes Percent Auto 6.4 % (2-11); Neutrophils Absolute Auto 7.5 x10*3/uL (2.0-8.3); Neutrophils Percent Auto 59.5 % (45-73); Platelet Count 216 X10*3/uL (160-400); Red Blood Count 4.41 X10*6/uL (4.20-5.50); Red Cell Distribution Width 12.9 % (11.0-16.0); White Blood Count 12.7 X10*3/uL (4.8-10.8)
[2024-06-16] MEDS: HYDROmorphone HCl 1 MG/ML SYRINGE IVPUSH ×3 (14:34→19:10)
[2024-06-16] MEDS: Ketorolac Tromethamine 15 MG/ML VIAL IVPUSH (14:34)
[2024-06-16] MEDS: Lactated Ringers 1,000 ML 999 ML IV (14:35)
[2024-06-16 14:39] LABS: Alanine Aminotransferase 40 U/L (0-31); Albumin Level 3.9 g/dL (3.5-5.0); Alkaline Phosphatase 125 U/L (39-117); Anion Gap 13 (12-20); Aspartate Amino Transferase 25 U/L (5-31); Bilirubin Total 0.7 mg/dL (0.0-1.0); Blood Urea Nitrogen 17 mg/dL (9-16); Calcium 8.8 mg/dL (8.4-10.2); Carbon Dioxide 23 mmol/L (22-29); Chloride 110 mmol/L (96-108); Estimated Glomerular Filt Rate > 60; Glucose Random 93 mg/dL (60-115); Potassium 3.3 mmol/L (3.3-5.1); Sodium 143 mmol/L (135-145); Total Protein 7.6 g/dL (6.5-8.0)
[2024-06-16] MEDS: ondansetron HCL 4 MG/2 ML VIAL IVPUSH (14:48)
[2024-06-16 14:53] VITALS: BP 152/83; PULSE 91; RESP 18; TEMP 36.4; O2SAT 97
--- OUTSIDE RECORDS SUMMARY | 2024-06-16 15:40 | XMS_ITS | Encounter Summary ---
Author Organization [facility] Address [address] [place] [address] Care Team Providers Care Engineer Third Assistant Name Role Phone Jane Dao MD Primary Care Provider [phone] Reason for Visit * Reason Comments Advice Only Prior Authorization Call Patient Encounter Details Date Type Department Care Team (Late st Contact Info) Description 06/02/2024 Telephone [address] [place] [address] Violet Suggs, TIRE MAKER [address] [facility] [address] [place] [address] Advice Only; Prior Authorization; Call Patient Social History Tobacco Use Types Packs/Day Years [...] * Telephone Encounter - Silvina Joy - 06/13/2024 12:38 PM EDT Spoke to Zahida @ patient's insurance ([facility]), call ref. # [id number]. She states no prior authorization is required and a pre-determination could be done if the out of pocket cost is significant to the patient. She states it looks like the rendering facility requested this to be done on 05/29/2024 which was 2 days prior to the imaging. Facility was in network, no prior authorization required, claim paid on 06/09/2024 (not pending anything as it is a paid claim). Patient deductible was $250.00 for outpatient procedure in a facility setting which is the option the patient chose when obtaining the insurance. As far as the requesting provider information. [facility] does have Violet Suggs listed, I am not sure why the facility put a different providers name. After discussion with Zahida, no further intervention needs to be done at this time pertaining to the CT Scan. documented in this encounter Plan of Treatment Upcoming Encounters Date Type Department Care Team (Late st Contact Info) Description 07/31/2024 9:00 AM EDT Office Visit [facility] [address] [facility] [address] [place] [address] Hope Peralta MD [address] [facility] [address] [place] [address] documented as of this encounter Visit Diagnoses Not on filedocumented in this encounter Care Teams Engineer Third Assistant Relationship Specialty Start Date End Date Jane Dao MD [address] [place] [address] PCP - General General Medicine 05/31/23 documented as of this encounter
--- OUTSIDE RECORDS SUMMARY | 2024-06-16 15:40 | XMS_ITS | Encounter Summary ---
Author Organization [facility] Address [address] [place] [address] Care Team Providers Care Sheet Pile Driver Operator Name Role Phone Jane Dao MD Primary Care Provider [phone] Reason for Visit * Reason Comments Follow-up Encounter Details Date Type Department Care Team (Late st Contact Info) Description 06/07/2024 1:45 PM EST Telemedicine [facility] Urology [address] [place] [address] Casey García MD [address] [place] [address] [address] [place] [address] Calculus of kidney (Primary Dx); Left flank pain; Calculus of ureter Social History Tobacco Use Types Packs/Day Years Used Date Smoking Tobacco: Never Smokeless Tobacco: Never Alcohol Use Standard Drinks/Week Comments Yes 1 (1 standard drink = 0.6 oz pur e alcohol) not daily AUDIT-C Answer Date Recorded Q1: How often do you have a drink containing alcohol? Never 06/08/2024 Q2: How many drinks containi ng alcohol do you have on a typical day when you are drinking? Patient does not drink Q3: How often do you have si x or more drinks on one occasion? Never 06/08/2024 Sex and Gender Information Value Date Recorded Sex Assigned at Female 05/23/2024 1:26 PM EST Gender Identity Female 05/23/2024 1:26 PM EST Sexual Orientation Heterosexual (straight) 05/23 1:26 PM EST documented as of this encounter Progress Notes * Casey García MD - 06/07/2024 10:38 AM EST Assessment & Plan Patti was seen today for follow-up. Diagnoses and all orders for this visit: Calculus of kidney - POCT Urinalysis Dipstick, Automated - HYDROmorphone (DILAUDID) 2 MG tablet; Take 1 tablet (2 mg total) by mouth 3 times daily (every 8 hours) as needed for severe pain. Max Daily Amount: 6 mg Left flank pain - HYDROmorphone (DILAUDID) 2 MG tablet; Take 1 tablet (2 mg total) by mouth 3 times daily (every 8 hours) as needed for severe pain. Max Daily Amount: 6 mg Calculus of ureter I will get her on with the next available stone provider to have a left ureteroscopy. I did send her some Dilaudid for today. After I would recommend that she repeat a metabolic workup as she has hadquite a few stones. I discussed this with the patient and she is in agreement. Recent Results (from the past 2 hour(s)) POCT Urinalysis Dipstick, Automated Collection Time: 06/07/24 1:29 PM Specimen: Urine Result Value Ref Range Source, UA Voided Color, UA Yellow Yellow & Clear, Yellow Clarity, UA Clear Clear Glucose, UA Negative Negative Bilirubin, UA Negative Negative Ketones, UA Negative Negative Spec Grav, UA 1.010 1.005, 1.010, 1.015, 1.020, 1.025 Blood, UA Negative Negative pH, UA 6.0 5.0, 5.5, 6.0, 6.5, 7.0, 7.5, 8.0 Protein, UA Negative Negative Urobilinogen, UA 0.2 0.2, 1.0 Nitrite, UA Negative Negative Leukocyte Esterase, UA Negative Negative Lot Number [id number] Edge Cutting Machine Operator Pass Pass Subjective Subjective Patient ID: Patti Drake is a 49 y.o. female. This is a patient previously seen by Wiliam Suggs APRN for kidney stones. Patient presented for a second opinion on her kidney stones. She has had kidney stones since 1993. She states she has had multiple ESWL's and ureteroscopy with stent placements. She states she had 7 procedures done within 2 years. She gets kidney stones in both kidneys. She is a patient of Dr. Sang Neal with [facility]. She states her stones are calcium stones. She has done a metabolic workup and has been on Vitamin B6 and Potassium citrate in the past. Currently, she is reporting left flank pain associated with bladder spasms. She has been taking Ibuprofen, Dilaudid, and Pyridium with minimal relief. She denies gross hematuria, N/V, fever, or chills. She did a CT stone study in May 31, 2024 that shows a 5 mm stone at the left UPJ with mild hydro. She also has other stones in both kidneys. She was also found to have 10-20 RBCs in her urine.She is seeing her PCP about a low parathyroid. She is still having pain on the left in the left flank area. I reviewed the CT stone study from May 31, 2024. On my review of the images from last week she has the stone in the left ureter. She is still having pain. I personally reviewed: Previous MD records, Catscan, and Urinalysis and I reviewed the images myself. 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 Colon polyp Family history of cancer Fibromyalgia Genetic testing negative BRCA Hypertension Kidney stones Migraine Polyp of stomach Transfusion of blood product refused for mandaeism reason Vertigo PSH: Past Surgical History: Procedure Laterality Date COLONOSCOPY 2021 ESOPHAGOGASTRODUODENOSCOPY 2023 GANGLION CYST EXCISION Left PARTIAL HYSTERECTOMY transvaginal SKIN LESION EXCISION 1977 canceroous on back URETHRAL SLING Meds: Current Outpatient Medications: HYDROcodone-acetaminophen (VICODIN) 5-300 MG per tablet, Take 1 tablet by mouth 4 times daily (every 6 hours) as needed for severe pain., Disp: , Rfl: ibuprofen (MOTRIN) 800 mg tablet, Take 1 tablet (800 mg total) by mouth 3 times daily (every 8 hours) as needed for mild pain., Disp: 30 tablet, Rfl: 0 levalbuterol (XOPENEX HFA) 45 mcg/puff inhaler, INHALE 1 PUFF BY MOUTH EVERY 6 HOURS NEEDED, Disp: , Rfl: levocetirizine (Xyzal Allergy 24HR) 5 MG tablet, Take 1 tablet (5 mg total) by mouth., Disp: , Rfl: losartan (COZAAR) 50 MG tablet, Take 1 [...] 2 tablet, Rfl: 0 Multiple Vitamins-Minerals (b uqgiynp-G-C-zinc) tablet, Take 1 tablet by mouth daily., Disp: , Rfl: multivitamin Tab tablet, Take 1 tablet by mouth daily., Disp: , Rfl: ondansetron (ZOFRAN) 4 MG tablet, Take 1 tablet (4 mg total) by mouth 3 times daily (every 8 hours)as needed for nausea or vomiting., Disp: 10 tablet, Rfl: 0 phenazopyridine (PYRIDIUM) 200 MG tablet, Take 1 tablet (200 mg total) by mouth 3 (three) times a day as needed for bladder spasms (bladder irritation)., Disp: 30 tablet, Rfl: 1 phentermine 15 MG capsule, Take 1 capsule [...] needed for severe pain., Disp: , Rfl: diphenhydrAMINE (BENADRYL) 50 MG tablet, Take 1 tablet (50 mg total) by mouth once. Take 1 tablet (50 mg) 1 hours prior to procedure with contrast., Disp: 1 tablet, Rfl: 0 HYDROmorphone (DILAUDID) 2 MG tablet, Take 1 tablet (2 mg total) by mouth 3 times daily (every 8 hours) as needed for severe pain. Max Daily Amount: 6 mg, Disp: 10 tablet, Rfl: 0 LORazepam (ATIVAN) 0.5 MG tablet, Take 2 tablets (1 mg total) by mouth 1 time if needed (for MRI premedication)., Disp: 2 tablet, Rfl: 0 Allergies: Allergies Allergen Reactions Cephalexin Anaphylaxis Codeine Other (See Comments) LOC Definity [Perflutren Lipid Microsphere] Anaphylaxis Gentamicin Anaphylaxis Influenza Vaccines Anaphylaxis Iodinated Contrast Media Anaphylaxis Percocet [Oxycodone-Acetaminophen] Shortness Of Breath Respiratory depression Pineapple Anaphylaxis Seafood Anaphylaxis White Kidney Marie [Phaseolus] Anaphylaxis Augmentin [Amoxicillin-Pot Clavulanate] Hives Bactrim [Sulfamethoxazole-Trimethoprim] Swelling Diflucan [Fluconazole] Hives Gadolinium Swelling Versed [Midazolam] GI Intolerance/Nausea/Vomiting SH: Social History Tobacco Use Smoking status: Never Smokeless tobacco: Never Vaping Use Vaping status: Never Used Substance Use Topics Alcohol use: Yes Alcohol/week: 1.0 standard drink of alcohol Types: 1 Glasses of wine per week Comment: not daily Drug use: Never FH: Family History Problem Relation Age of Onset [...] Paternal Uncle Breast cancer Maternal Cousin 33 Objective Objective There were no vitals filed for this visit. Physical Exam documented in this encounter Plan of Treatment Upcoming Encounters Date Type Department Care Team (Late st Contact Info) Description 07/31/2024 9:00 AM EDT Office Visit [facility] [address] [facility] [address] [place] [address] Hope Peralta MD [address] [facility] [address] [place] [address] documented as of this encounter Procedures Procedure Name Priority Date/Time Associated Diagnosis Comments POCT URINALYSIS DIPSTICK, AUTOMATED Routine 06/07/2024 1:29 PM EST Calculus of kidney documented in this encounter Results * POCT Urinalysis Dipstick, Automated (06/07/2024 1:29 PM EST) Source, UA Voided Color, UA Yellow Yellow & Clear, Yellow Clarity, UA Clear Clear Glucose, UA Negative Negative Bilirubin, UA Negative Negative Ketones, UA Negative Negative Spec Grav, UA 1.010 1.005, 1.010, 1.015, 1.020, 1.025 Blood, UA Negative Negative pH, UA 6.0 5.0, 5.5, 6.0, 6.5, 7.0, 7.5, 8.0 Protein, UA Negative Negative Urobilinogen, UA 0.2 0.2, 1.0 Nitrite, UA Negative Negative Leukocyte Esterase, UA Negative Negative Lot Number [id number] Edge Cutting Machine Operator Pass Pass Urine 06/07/2024 1:29 PM EST Casey García MD POINT OF CARE TEST O RDERABLES documented in this encounter Visit Diagnoses Diagnosis Calculus of kidney- Primary Left flank pain Abdominal pain, unspecified site Calculus of ureter documented in this encounter Care Teams Sheet Pile Driver Operator Relationship Specialty Start Date End Date Jane Dao MD [address] [place] [address] PCP - General General Medicine 05/31/23 documented as of this encounter
--- OUTSIDE RECORDS SUMMARY | 2024-06-16 15:40 | XMS_ITS | Data Portability ---
Author Organization [facility] Address [address] [place] [address] Care Team Providers Care Showroom Sales Assistant Name Role Phone ILIA COLEMAN Primary Care Provider Assessment Encounter Date Assessment Date Assessment LastModified [...] Orders Zofran 4 mg tablet 021 [id number] [address] [place], [place], [id number], 13:08:05 Patient TargetsNo targets recorded. Patient Instructions Encounter Date Encounter Id Patient Instructions Last Modified By Organization Details Last Modified Time 08/16/2020 [id number] YOU HAVE BEEN EXPOSED TO COVID IN [...] TOLERATED. FOLLOW UP WITH YOUR PCP AND/OR REAGENT TENDER NEEDED. What is coronavirus disease 2019? Coronavirus disease 2019 (COVID-19) is a respiratory illness that can spread from person to person. The virus that causes COVID-19 is a novel coronavirus that was first identified during an investigation into an outbreak in [facility]. Can I get COVID-19? Yes. COVID-19 [...] least 20 seconds. Use an alcohol-based hand industrial health and safety professor that contains at least 60% alcohol if [...] completed Chacha Thorpe, RAHUL [address], [place], [address], [place] [facility] 08/16/2020 11:55:49 procedure on kidney completed Chacha Thorpe NP [address], [place], [address], [place] [facility] 08/16/2020 11:55:56 procedure on ganglion cyst completed Chacha Thorpe NP [address], [place], [address], [place] [facility] 08/16/2020 11:56:03 D&c of cervical stump completed Chacha Thorpe NP [address], [place], [address], [place] [facility] 08/16/2020 11:56:17 lithotripsy completed Chacha Thorpe NP [address], [place], [address], [place] [facility] 08/16/2020 11:57:09 Imaging Results None recorded. Procedure Notes None recorded. Medical Equipment None Reported. Allergies Allergen ID Allergen Name Allergen Category Reaction Reaction Severity Criticality Documentation Date Start Date Code Code System Note Provider Name and Address Organization Details Recorded Time [id number] acetamino phen / oxycodone medicatio n Not available Not available Not available 08/16/2020 63293 3 RxNorm Chacha Thorpe, RAHUL [address], [place], [address], [place] [facility] 11:50:17 378773 codeine medicatio n Not available Not available Not available 08/16/2020 2670 RxNorm Chacha Thorpe, RAHUL [address], [place], [address], [place] [facility] 11:50:26 348655 Bactrim medicatio n Not available Not available Not available 08/16/2020 66750 9 RxNorm Chacha Thorpe, RAHUL [address], [place], [address], [place] [facility] 11:50:34 [id number] midazolam hydrochlo ride medicatio n Not available Not available Not available 08/16/2020 51773 8 RxNorm Chachabrayden Thorpe, MINI LAB OPERATOR [address], [place], [address], [place] [facility] 11:50:41 271500 Augmentin medicatio n Not available Not available Not available 08/16/2020 38241 2 RxNorm Chachabrayden Thorpe, MINI LAB OPERATOR [address], [place], [address], [place] [facility] 11:50:50 [id number] cephalexi n medicatio n Not available Not available Not available 08/16/2020 2231 RxNorm Chachabrayden Thorpe, MINI LAB OPERATOR [address], [place], [address], [place] [facility] 11:51:05 848860 clindamyc in Not available Not available Not available Not available 08/16/2020 2582 RxNorm Chachabrayden Thorpe, MINI LAB OPERATOR [address], [place], [address], [place] [facility] 11:51:16 989351 gentamici n medicatio n Not available Not available Not available 08/16/2020 18703 50 RxNorm Chachabrayden Thorpe, MINI LAB OPERATOR [address], [place], [address], [place] [facility] 11:51:26 [id number] oxycodone medicatio n Not available Not available Not available 08/16/2020 7804 RxNorm Chachabrayden Thorpe, MINI LAB OPERATOR [address], [place], [address], [place] [facility] 11:51:32 381192 Diflucan medicatio n Not available Not available Not available 08/16/202008464 3 RxNorm Chachabrayden Thorpe, MINI LAB OPERATOR [address], [place], [address], [place] [facility] 11:51:40 001229 fluconazo le medicatio n Not available Not available Not available 08/16/2020 4450 RxNorm Chacha Ruth Thorpe, MINI LAB OPERATOR [address], [place], [address], [place] [facility] 11:51:48 260306 Iodinated contrast media (substanc e) medicatio n Not available Not available Not available 08/16/2020 56971 2004 SNOMED Chachabrayden Thorpe, MINI LAB OPERATOR [address], [place], [address], [place] [facility] 11:52:07 689074 influenza A (H5N1) virus vaccine monoval (18 yr +) Not available Not available Not available Not available 08/16/2020 98479 UNK Chachabrayden Thorpe, MINI LAB OPERATOR [address], [place], [address], [place] [facility] 11:52:15 198623 Definity medicatio n Not available Not available Not available 08/16/2020 78439 5 RxNorm Chachabrayden Thorpe, MINI LAB OPERATOR [address], [place], [address], [place] [facility] 11:52:30 407837 shellfish derived food,medi cation Not available Not available Not available 08/16/2020 88668 UNK Chachabrayden Thorpe, RAHUL [address], [place], [address], [place] [facility] 11:52:40 074490 pineapple extract food Not available Not available Not available 08/16/2020 98143 74 RxNorm Chachabrayden Thorpe, MINI LAB OPERATOR [address], [place], [address], [place] [facility] 11:52:49 [...] Smoker Chacha Thorpe, RAHUL [address], [place], [address], [place] [facility] 08/16/2020 11:54:51 Do You [...] Visiting Friends Or Family Or Going To Y[employer] Or Club Meetings) 1 Or 2 Times [...] Not available 11:54:47 Medical History Condition Response Coronary Artery Disease Y COPD N Depression N Cancer N Stroke N High Cholesterol N Kidney Disease Y Diabetes N Asthma Y Pulmonary Embolism N Hypertension Y Gynecological HistoryNo gynecological history recorded. Obstetrics History GPAL:G 0 P 0 0 0 0 Past Encounters Encounter ID Performer Location Encounter Start Date Encounter Closed Date Diagnosis/Indication Diagnosis SNOMED-CT Code Diagnosis ICD10 Code Diagnosis Note [id number] Chacha Thorpe NP [facility] [address] [place] [address] 08/16/2020 11:48:03 08/19/2020 12:42:23 Suspected COVID-19 [id number] Z03.89 Overview/H istory: Patient is an alert [...] after care of this patient according to [facility]'s infection prevention protocols. med rec completjed In order to obtain further informatio n and compare any laboratory results/va lues, I have accessed {{old patient records* p atient records on the [facility] [employer] [facility] r eviewed records with the PCP}}. This informatio n was pertinent in my medical decision making today. Nausea [id number] R11.0 Health Concerns Section Related Observation LastModified [...] aneurysm, vertigo, fibromyalgia. Chacha Thorpe, RAHUL [address], [place], [address], [place] [facility] 08/16/2020 13:12:29 OBGyn Episode No OBEpisode recorded.
--- OUTSIDE RECORDS SUMMARY | 2024-06-16 15:40 | XMS_ITS | Encounter Summary ---
Author Organization [facility] Address [address] [place] [address] Care Team Providers Care Tube Carrier Name Role Phone Jane Dao MD Primary Care Provider [phone] Encounter Details Date Type Department Care Team (Late Contact Info) Description 06/02/2024 Orders Only [facility] Urology [address] [place] [address] Provider, Liyah, [address] [place] [address] Social History Tobacco Use Types Packs/Day Years [...] [facility] [address] [facility] [address] [place] [address] Hope Peralta MD [address] [place] [address] documented as of this encounter Procedures Procedure Name Priority Date/Time Associated Diagnosis Comments IMAGING RESULT Routine 05/31/2024 11:17 AM EST documented in this encounter Results * Imaging Result (05/31/2024 11:17 AM EST) Anatomical Region Laterality Modality Other External Provider MD SEE LEGACY PROCEDUR ES documented in this encounter Visit Diagnoses Not on filedocumented in this encounter Care Teams Tube Carrier Relationship Specialty Start Date End Date Jane Dao MD [address] [place] [address] PCP - General General Medicine 05/31/23 documented as of this encounter
--- OUTSIDE RECORDS SUMMARY | 2024-06-16 15:41 | XMS_ITS | Encounter Summary ---
Author Organization [facility] Address [address] [place] [address] Care Team Providers Care Electro Mechanic Name Role Phone Jane Dao MD Primary Care Provider [phone] Encounter Details Date Type Department Care Team [...] Office Visit [facility] [address] [facility] [address] [place] [address] Hope Peralta MD [address] [facility] [address] [place] [address] documented as of this encounter Visit Diagnoses Not on filedocumented in this encounter Care Teams Electro Mechanic Relationship Specialty Start Date End Date Jane Dao MD [address] [place] [address] PCP - General General Medicine 05/31/23 documented as of this encounter
--- OUTSIDE RECORDS SUMMARY | 2024-06-16 15:41 | XMS_ITS | Encounter Summary ---
Author Organization [facility] Address [address] [place] [address] Care Team Providers Care Proof Machine Operator Supervisor Name Role Phone Jane Dao MD Primary Care Provider [phone] Reason for Visit * Reason Comments Medical Complaint Encounter Details Date Type Department Care Team ([facility] st Contact Info) Description 06/07/2024 Telephone [facility] Urology [address] [place] [address] Casey García MD [address] [facility] [address] [place] [address] Medical Complaint Social History Tobacco Use Types Packs/Day Years [...] encounter Miscellaneous Notes * Telephone Encounter - Bayron Vang LPN - 06/15/2024 9:57 AM EDT Images from the original note were not included. Casey García MD You1 hour ago (9:00 AM) Please call bed management and let them know. She had a ureteroscopy yesterday that went perfect. She does have a lot of allergies. Call placed to Bed Management. Transferred to ER95. (ITrack). The above message was conveyed, and appreciated. * Telephone Encounter - Saira Nelson - 06/08/2024 10:[address] Hartley's first available is 07/10/24. * Telephone Encounter - Casey García MD - 06/07/2024 1:32 PM EST UROLOGY CASE BOOKING INFORMATION Patient: Patti Drake : 1975 Diagnosis: left renal calculi, left hydrdonephrosis ICD: N20.0 and N13.30 Procedure: left ureteroscopy CPT: 92418 Surgeon: NEXT AVAILABLE STONE PROVIDER Est time: 45 minutes Booking status: Schedule case now Location: ANY Date: JACLYN Anesthesia: General Antibiotics: Special Equipment: Holmium Special needs: FLOUROSCOPY Preop testing: Routine Preop consult: PATC Follow up:1 week for stent removal Other comments: she does have left hydro Casey García 06/07/2024 1:32 PM documented in this encounter Plan of Treatment Upcoming Encounters Date Type Department Care Team (Late st Contact Info) Description 07/31/2024 9:00 AM EDT Office Visit [facility] [address] [facility] [address] [place] [address] Hope Peralta MD [address] [facility] [address] [place], [place] [phone] documented as of this encounter Visit Diagnoses Not on filedocumented in this encounter Care Teams Proof Machine Operator Supervisor Relationship Specialty Start Date End Date Jane Dao MD [address] [place] [address] PCP - General General Medicine 05/31/23 documented as of this encounter
--- OUTSIDE RECORDS SUMMARY | 2024-06-16 15:41 | XMS_ITS | Patient Health Record ---
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 Name Role Phone Piero Alford Primary Care Provider Allergies Allergen (clinical drug ingredient) Drug/Non Drug Allergy documented on EMR Reaction Allergy Type Onset Date Status amoxicillin / clavulanate augmentin (uncoded) Unknown Allergy Active bactrim (uncoded) Unknown Allergy Ac tive cephalexin cephalexis (uncoded) Unknown Allergy Active clindamycin [...] Unknown Allergy Act leti almond allergenic extract [place] (Diagnostic) Unknown Drug Allergy Active Shellfish (FN) Shellfish-derived Products anaphylaxis Drug Allergy Active Yeast-related Products Unknown Drug Allergy Active Chickpea Unknown Allergy Active Results Component Value Reference Range Notes Respiratory Panel w/ SARS-Co [id number] Reviewed date:02/03/2024 10:01:31 AM Interpretation: Performing Lab:[facility] [place], [address], [place], Phone - [phone], Director - Néstor Notes/Report: Clinical Information:SRC: Adenovirus Not Detected Not Detected Coronavirus HKU1 Not Detected Not Detected Coronavirus NL63 Not Detected Not Detected Coronavirus 229E Not Detected Not Detected Coronavirus OC43 Not Detected Not Detected SARS-CoV-2 Not Detected Not Detected Human Metapneumovirus Not Detected Not Detected Human Rhinovirus/Enterovirus Not Detected Not Detected Influenza A Not Detected Not Detected Influenza A/H1 TNP Test not perf ormed Influenza A/H1-2009 TNP Test not performed Influenza A/H3 TNP Test not perf ormed Influenza B Not Detected Not Detected Parainfluenza 1 Not Detected Not Detected Parainfluenza 2 Not Detected Not Detected Parainfluenza 3 Not Detected Not Detected Parainfluenza 4 Not Detected Not Detected Respiratory Syncytial Virus Not Detected Not Detected Bordetella parapertussis Not Detected Not Detected Bordetella pertussis Not Detected Not Detected Chlamydophila pneumoniae Not Detected Not Detected Mycoplasma pneumoniae Not Detected Not Detected [id number] Drug-Scr Reviewed date:10/20/2023 05:21:29 PM Interpretation: Performing Lab:[facility], [address], [place], Phone - [phone], Director - PhDAbudu Notes/Report: Clinical Information:CCU:[id number] LM Amphetamines, Urine Negative Nqador=5530 ng/mL Amp hetamine test includes Amphetamine and Methamphetamine. Barbiturates Negative Fxqjfm=699 ng/mL Benzodiazepines Negative Pqdjfe=849 ng/mL Drug Screen Comment: This analysis is performed by immunoassay. Positive findings are unconfirmed analytical test results; if results do not support expected clinical finding, confirmation by an alternate methodology is recommended. Patient metabolic variables, specific drug chemistry, and specimen characteristics can affect test outcome. Technical consultation is available at [email or web address], or call toll free [phone]. Cannabinoid Negative Cutoff=50 ng/mL Cocaine (Metab.) Negative Tgdnog=939 ng/mL Opiates Negative Dmufzk=294 ng/mL Opiate test includes Codeine, Morphine, Hydromorphone, Hydrocodone. Phencyclidine Negative Cutoff=25 ng/mL Methadone Negative Ezjanh=946 ng/mL Propoxyphene, Urine Negative Wbsyno=137 ng/mL MR Brain Angiography WO Reviewed date:12/03/2023 08:27:34 AM Interpretation: Performing Lab: Notes/Report: Original Ordering Provider: PIERO ALFORD DNP [facility] US Carotid Duplex Bilat Comp lt Reviewed date:12/10/2023 09:55:52 AM Interpretation: Performing Lab: Notes/Report: Original Ordering Provider: PIERO ALFORD DNP [facility] Phosphorus-262706 (Not yet r eviewed by provider) Interpretation: Performing Lab:[facility] [place], [address] [place] [address], [place], Phone - [phone], Director - Néstor Notes/Report: Phosphorus 3.5 3.0-4.3 mg/dL Testosterone-651063 (Not yet reviewed by provider) Interpretation: Performing Lab:[facility] [place], [address] [place] [address], [place], Phone - [phone], Director - Néstor Notes/Report: Testosterone 14 4-50 ng/dL Progesterone-073645 (Not yet reviewed by provider) Interpretation: Performing Lab:[facility] [place], [address] [place] [address], [place], Phone - [phone], Director - Néstor Notes/Report: Progesterone 0.3 Follicular phase 0.1 - 0.9 Luteal phase 1.8 - 23.9 Ovulation phase 0.1 - 12.0 First trimester 11.0 - 44.3 Second trimester 25.4 - 83.3 Third trimester 58.7 - 214.0 Postmenopausal 0.0 - 0.1 Estrogens, Total-084094 (Not yet reviewed by provider) Interpretation: Performing Lab:[facility] [place], [address] [place] [address], [place], Phone - [phone], Director - Néstor Notes/Report: Estrogens, Total 178 Prepubertal < 40 Female Cycle: 1-10 Days 16 - 328 11-20 Days 34 - 501 21-30 Days 48 - 350 Post-Menopausal 40 - 244 CBC With Differential/Platel et-229629 (Not yet reviewed by provider) Interpretation: Performing Lab:[facility] [place], [address] [place] [address], [place], Phone - [phone], Director - Néstor Notes/Report: WBC 7.1 3.4-10.8 x10E3/uL RBC 4.90 3.77-5.28 x10E6/uL Hemoglobin 14.5 11.1-15.9 g/dL Hematocrit 43.3 34.0-46.6 % MCV 88 79-97 fL MCH 29.6 26.6-33.0 pg MCHC 33.5 31.5-35.7 g/dL RDW 12.7 11.7-15.4 % Platelets 225 150-450 x10E3/uL Neutrophils 45 Not Estab. % Lymphs 34 Not Estab. % Monocytes 7 Not Estab. % Eos 12 Not Estab. % Basos 2 Not Estab. % Neutrophils (Absolute) 3.2 1.4-7.0 x10E3/uL Lymphs (Absolute) 2.4 0.7-3.1 x10E3/uL Monocytes(Absolute) 0.5 0.1-0.9 x10E3/uL Eos (Absolute) 0.9 0.0-0.4 x10E3/uL Baso (Absolute) 0.1 0.0-0.2 x10E3/uL Immature Granulocytes 0 Not Estab. % Immature Grans (Abs) 0.0 0.0-0.1 x10E3/uL PTH, Intact-[id number] (Not yet reviewed by provider) Interpretation: Performing Lab:[facility] [address], Phone - [phone], Director - SCJodry Notes/Report: PTH, Intact 12 15-65 pg/mL Albumin/Creatinine Ratio,Uri ne-134588 (Not yet reviewed by provider) Interpretation: Performing Lab:[facility] [address], [place], Phone - [phone], Director - MDJodry Notes/Report: Creatinine, Urine 119.4 Not Estab. mg/dL Albumin, Urine 4.9 Not Estab. ug/mL Alb/Creat Ratio 4 0-29 mg/g creat Normal: 0 - 29 Moderately increased: 30 - 300 Severely increased: >300 Comp. Metabolic Panel (14)-3 33531 (Not yet reviewed by provider) Interpretation: Performing Lab:[facility] [address], Phone - [phone], Director - MDJodry Notes/Report: Glucose 74 70-99 mg/dL BUN 16 6-24 mg/dL Creatinine 0.95 0.57-1.00 mg/dL eGFR 73 >59 mL/min/1.73 BUN/Creatinine Ratio 17 9-23 Sodium 139 134-144 mmol/L Potassium 4.4 3.5-5.2 mmol/L Chloride 102 96-106 mmol/L Carbon Dioxide, Total 22 20-29 mmol/L Calcium 9.4 8.7-10.2 mg/dL Protein, Total 7.1 6.0-8.5 g/dL Albumin 4.2 3.8-4.9 g/dL Globulin, Total 2.9 1.5-4.5 g/dL Bilirubin, Total 0.6 0.0-1.2 mg/dL Alkaline Phosphatase 146 44-121 IU/L AST (SGOT) 32 0-40 IU/L ALT (SGPT) 46 0-32 IU/L LP+Non-HDL Cholesterol-54928 5 (Not yet reviewed by provider) Interpretation: Performing Lab:[facility] [place], [address] [place] [address], [place], Phone - [phone], Director - MDJodry Notes/Report: Cholesterol, Total 214 100-199 mg/dL Triglycerides 98 0-149 mg/dL HDL Cholesterol 48 >39 mg/dL VLDL Cholesterol Tr 18 5-40 mg/dL LDL Chol Calc (NIH) 148 0-99 mg/dL Non-HDL Cholesterol 166 0-129 mg/dL UA/M w/rflx Culture, Routine -[id number] (Not yet reviewed by provider) Interpretation: Performing Lab:[facility] [place], [address] [place] [address], [place], Phone - [phone], Director - MDJodry Notes/Report: Specific [place] 1.020 1.005-1.030 pH 6.5 5.0-7.5 Urine-Color Yellow Yellow Appearance Clear Clear WBC Esterase Negative Negative Protein Negative Negative/Trace Glucose Negative Negative Ketones Negative Negative Occult Blood Negative Negative Bilirubin Negative Negative Urobilinogen,Semi-Qn 0.2 0.2-1.0 mg/dL Nitrite, Urine Negative Negative Microscopic Examination Micr oscopic follows if indicated. Microscopic Examination See below: Micr oscopic was indicated and was performed. Urinalysis Reflex This speci men will not reflex to a Urine Culture. WBC 0-5 0 - 5 /hpf RBC 0-2 0 - 2 /hpf Epithelial Cells (non renal) 0-10 0 - 10 /hpf Casts None seen None seen /lpf Bacteria None seen None seen/Few TSH reflex to F4X-[id number] (No t yet reviewed by provider) Interpretation: Performing Lab:[facility] [place], [address] [place] [address], [place], Phone - [phone], Director - MDJodry Notes/Report: TSH 1.220 0.450-4.500 uIU/mL PDF Report Reviewed date:10/20/2023 05:21:28 PM Interpretation: Performing Lab:[facility], [address] [facility], [facility], Phone - [phone], Director - PhDAbudu Notes/Report: Clinical Information:CCU:[id number] LM Iron and TIBC-923588 Reviewed date:10/20/2023 05:21:29 PM Interpretation: Performing Lab:[facility], [address] [place] [address], Phone - [phone], Director - Néstor Notes/Report: Iron Bind.Cap.(TIBC) 316 250-450 ug/dL UIBC 247 131-425 ug/dL Iron 69 27-159 ug/dL Iron Saturation 22 15-55 % Vitamin [id number] Reviewed date:10/20/2023 05:21:29 PM Interpretation: Performing Lab:[facility], [address] [place] [address], Phone - [phone], Director - Néstor Notes/Report: Vitamin B12 696 010-6827 pg/mL Ferritin-109350 Reviewed date:10/20/2023 05:21:29 PM Interpretation: Performing Lab:[facility], [address] [place] [address], Phone - [phone], Director - Néstor Notes/Report: Ferritin 143 15-150 ng/mL CBC With Differential/Platel et-259612 Reviewed date:10/20/2023 05:21:29 PM Interpretation: Performing Lab:[facility], [address] [place] [address], Phone - [phone], Director - Néstor Notes/Report: WBC 6.8 3.4-10.8 x10E3/uL RBC 4.63 3.77-5.28 x10E6/uL Hemoglobin 14.0 11.1-15.9 g/dL Hematocrit 40.9 34.0-46.6 % MCV 88 79-97 fL MCH 30.2 26.6-33.0 pg MCHC 34.2 31.5-35.7 g/dL RDW 13.0 11.7-15.4 % Platelets 208 150-450 x10E3/uL Neutrophils 57 Not Estab. % Lymphs 27 Not Estab. % Monocytes 6 Not Estab. % Eos 9 Not Estab. % Basos 1 Not Estab. % Neutrophils (Absolute) 3.9 1.4-7.0 x10E3/uL Lymphs (Absolute) 1.8 0.7-3.1 x10E3/uL Monocytes(Absolute) 0.4 0.1-0.9 x10E3/uL Eos (Absolute) 0.6 0.0-0.4 x10E3/uL Baso (Absolute) 0.1 0.0-0.2 x10E3/uL Immature Granulocytes 0 Not Estab. % Immature Grans (Abs) 0.0 0.0-0.1 x10E3/uL Measles/Mumps/Rubella Immuni ty-[id number] Reviewed date:10/20/2023 05:21:29 PM Interpretation: Performing Lab:[facility] [place], [address] [place] [address], Phone - [phone], Director - MDdry Notes/Report: Rubella Antibodies, IgG 1.28 Immune >0.99 inde x Non-immune <0.90 Equivocal 0.90 - 0.99 Immune >0.99 Measles Antibodies, IgG 154.0 Immune >16.4 AU/m L Negative <13.5 Equivocal 13.5 - 16.4 Positive >16.4 Presence of antibodies to Rubeola is presumptive evidence of immunity except when acute infection is suspected. Mumps Abs, IgG <9.0 Immune >10.9 AU/mL Negative <9.0 Equivocal 9.0 - 10.9 Positive >10.9 A positive result generally indicates past exposure to Mumps virus or previous vaccination. Vitamin D, 09-Lchhnsy-414715 Reviewed date:10/20/2023 05:21:29 PM Interpretation: Performing Lab:[facility] [place], [address] [facility], [place], Phone - [phone], Director - MDJodry Notes/Report: Vitamin D, 25-Hydroxy 51.4 30.0-100.0 ng/mL Vitamin D deficiency has been defined by the [place] of [employer] and an Endocrine Society practice guideline as a level of serum 25-OH vitamin D less than 20 ng/mL (1,2). The Endocrine Society went on to further define vitamin D insufficiency as a level between 21 and 29 ng/mL (2). 1. IOM ([place] of [employer]). 2010. Dietary reference intakes for calcium and D. [place]: The National Academies Press. 2. [place] MF, Diamond [place], Ladarius THAKUR, et al. Evaluation, treatment, and prevention of vitamin D deficiency: an Endocrine Society clinical practice guideline. JCEM. 2010; 96(7):1911-30. HCV Antibody RFX to Quant PC [id number] Reviewed date:10/20/2023 05:21:29 PM Interpretation: Performing Lab:[facility] [place], [address] [facility] [place], Phone - [phone], Director - MDShravan Notes/Report: HCV Ab Non Reactive Non Reactive Interpretation: Not infected with HCV unless early or acute infection is suspected (which may be delayed in an immunocompromised individual), or other evidence exists to indicate HCV infection. Comp. Metabolic Panel (14)-3 84535 Reviewed date:10/20/2023 05:21:29 PM Interpretation: Performing Lab:[facility] [place], [place], Phone - [phone], Director - Néstor Notes/Report: Glucose 73 70-99 mg/dL BUN 22 6-24 mg/dL Creatinine 1.02 0.57-1.00 mg/dL eGFR 67 >59 mL/min/1.73 BUN/Creatinine Ratio 22 9-23 Sodium 143 134-144 mmol/L Potassium 4.0 3.5-5.2 mmol/L Chloride 107 96-106 mmol/L Carbon Dioxide, Total 21 20-29 mmol/L Calcium 9.4 8.7-10.2 mg/dL Protein, Total 7.1 6.0-8.5 g/dL Albumin 4.3 3.9-4.9 g/dL Globulin, Total 2.8 1.5-4.5 g/dL A/G Ratio 1.5 1.2-2.2 Bilirubin, Total 0.5 0.0-1.2 mg/dL Alkaline Phosphatase 128 44-121 IU/L AST (SGOT) 29 0-40 IU/L ALT (SGPT) 35 0-32 IU/L LP+Non-HDL Cholesterol-93665 5 Reviewed date:10/20/2023 05:21:29 PM Interpretation: Performing Lab:[facility] [employer] [place], Phone - [phone], Director - Salinay Notes/Report: Cholesterol, Total 195 100-199 mg/dL Triglycerides 83 0-149 mg/dL HDL Cholesterol 50 >39 mg/dL VLDL Cholesterol Tr 15 5-40 mg/dL LDL Chol Calc ([facility]) 130 0-99 mg/dL Non-HDL Cholesterol 145 0-129 mg/dL TSH reflex to R3C-[id number] Reviewed date:10/20/2023 05:21:29 PM Interpretation: Performing Lab:[facility] [place], [address] [facility], [place], Phone - [phone], Director - Néstor Notes/Report: TSH 0.994 0.450-4.500 uIU/mL PDF Report Reviewed date:10/20/2023 05:21:29 PM Interpretation: Performing Lab:[facility] [place], [address] [facility], [place], Phone - [phone], Director - Néstor Notes/Report: Reason For Referral Reason Please refer pt to Va DUONG MD for consult of removal of ovaries due to family history faxed Diagnosis 1 Family history of ma lignant neoplasm of ovary (Z80.41) Referral Organization [facility] Referring Provider First Name Piero Referring Provider Last Name Feliberto Referring Provider Speciality Nurse Johana vazquez Referred Provider Specialty Gynecologic Oncology General Notes Karime YAN 07/05 05:56:46 PM >faxed, Christina YAN 07/27/2023 04:01:41 PM > [phone] Brooke R 07/28/2023 02:18:03 PM > Called to book appointment requested provider only see patients in the hospital. Booked with Dr Jyoti Carrillo [address] [place] [phone] remediosed Nella sent emessage to pt Referral Priority Routine Referral Appointment Date 08/05/2023 Reason Pt unable to stay as leep and has daytime fatigue - would benefit from a sleep consult faxed Diagnosis 1 Other circadian rhyt hm sleep disorder (G47.29) Referral Organization [facility] Referring Provider First Name Piero Referring Provider Last Name Feliberto Referring Provider Speciality Nurse Prac george Referred Provider Oni Robles Referred Provider Specialty Sleep Medici ne General Notes Karime YAN 07/05 10:13:35 AM >faxed Referral Priority Routine Reason Referral to Dr. Marry perez ([facility]) - Pt requesting a consult for panniculectomy due to excessive skin rashes in abdomen faxed Diagnosis 1 Excessive and redund ant skin and subcutaneous tissue (L98.7) Referral Organization [facility] Referring Provider First Name Piero Referring Provider Last Name [place] Referring Provider Speciality Nurse Prac george Referred Provider Higinio Lin Referred Provider Specialty Plastic and Reconstructive Surgery General Notes [facility] Karime 08/2023 11:27:13 AM >faxed, [facility] Karime 03/10/2024 10:56:39 AM >TE to provider, Received fax response from [facility]. They will not be able to see the patient. BMI 37.48. BMI requirement is 33 or less for surgery and consult, [facility] Karime 03/13/2024 01:26:38 PM >patient was notified and provider aware. Referral Priority Routine Medications Medication SIG (Take, Route, Frequency, Duration) Notes Start Date End Date Status Losartan Potassium 50 MG TAKE 1 TABLET B Y MOUTH DAILY for 90 Active Phentermine HCl 15 MG 1 capsule Oral Onc e a day for 30 days 06/14/2024 07/13/2024 Active Xopenex HFA 45 MCG/ACT 1 puff Inhalation every 6 hrs As needed 06/25/2023 Active Xyzal Allergy 24HR 5 MG 1 tablet in the evening Orally Once a day for 30 day(s) Active Ativan 0.5 MG 1 tablet as needed f or flying Orally Once a day for 7 days 12/22/2023 Active Propranolol HCl 10 MG TAKE 1 TABLET BY M OUTH THREE TIMES DAILY for 90 Active Nurtec 75 MG 1 tablet on the tong ue and allow to dissolve Orally 02/10/2024 Active Jxidvbikn-Pkknbnmwrngt-Byc gesterone 0.125mg - 0.25mg - 75mg 1 gm applied daily to inner thighs topical daily for 30 days Active Tamsulosin HCl 0.4 MG 1 capsule Oral prn with kidney stone for 14 days Active Triamcinolone Acetonide 0.025 % 1 application to affected area Externally Once a day for 7 days 10/18/2023 Active Immunizations Vaccine Route Administration Date Status Comme nts Influenza, seasonal, injectable, 6-35 months Unknown 01/23/2015 Administered TOGGB-31-Eglrpn Vaccine Unknown 11/28/2020 Administered WPUGO-10-Wzueiu Vaccine Unknown 12/17/2020 Administered *Tdap IM Intramuscular 07/26/2023 Administered Social History Alcohol Screen (Audit-C) Question Answer Notes Did you have a drink contain ing alcohol in the past year? Yes How often did you have a dri nk containing alcohol in the past year? Monthly or less (1 point) How many drinks did you have on a typical day when you were drinking in the past year? 1 or 2 drinks (0 point) How often did you have 6 or more drinks on one occasion in the past year? 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) Active confirmed Problem Vitamin D deficiency (25867278) Vitamin D deficiency, unspecified (E55.9) Active confirmed Problem Mixed hyperlipidemia (185194145) Mixed hyperlipidemia (E78.2) Active confirmed Problem Generalized anxiety disorder (56546711) Generalized anxiety disorder (F41.1) Active confirmed Problem Acute stress reaction (51771829) Acute stress reaction (F43.0) Active confirmed Problem Episodic tension-type headache (879964779) Episodic tension-type headache, not intractable (G44.219) Active confirmed Problem Disorder of sleep-wake cycle (disorder) (762475984) 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) Active confirmed Problem Chronic kidney disease due to hypertension (371372986062599) Hypertensive chronic kidney disease with stage 1 through stage 4 chronic kidney disease, or unspecified chronic kidney disease (I12.9) Active confirmed Problem Atrial premature depolarization (359713609) Atrial premature depolarization (I49.1) Active confirmed Problem Ventricular premature depolarization (087878427) Ventricular premature depolarization (I49.3) Active confirmed Problem Aneurysm of carotid artery (072818045) Aneurysm of carotid artery (I72.0) Active confirmed Problem Allergic rhinitis caused by pollen (disorder) (62446674) Allergic rhinitis due to pollen (J30.1) Active confirmed Problem Mild intermittent asthma (819641016) Mild intermittent asthma, uncomplicated (J45.20) Active confirmed Problem Benign neoplasm of stomach (36125113) Polyp of stomach and duodenum (K31.7) Active confirmed Problem Cholesterolosis of gallbladder (91107237) Cholesterolosis of gallbladder (K82.4) Active confirmed Problem Atopic dermatitis (87061385) Atopic dermatitis, unspecified (L20.9) Active confirmed Problem Fibromyalgia (141781334) Fibromyalgia (M79.7) Active confirmed Problem Chronic kidney disease stage 2 (332017842) Chronic kidney disease, stage 2 (mild) (N18.2) Active confirmed Problem Calculus of kidney (84894643) Calculus of kidney (N20.0) Active confirmed Problem SI - Stress incontinence (90706139) Stress incontinence (female) (male) (N39.3) Active confirmed Problem Menopause (962840682) Menopausal and female climacteric states (N95.1) Active confirmed Problem Cystic disease of liver (25340382) Cystic disease of liver (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.6) Active confirmed Problem Paresthesia (finding) (93575362) Paresthesia of skin (R20.2) Active confirmed Problem Attention deficit hyperactivity disorder, 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) Attention and concentration deficit (R41.840) Active confirmed Problem Residual cognitive deficit as late effect of cerebrovascular accident (360696223) 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 Problem Body mass index 30.00 to 34.99 (706425849501217) Body mass index [BMI] 31.0-31.9, adult (Z68.31) Active confirmed Problem Body mass index 35.00 to 39.99 (609494270543328) Body mass index [BMI] 36.0-36.9, adult (Z68.36) Active confirmed Problem Transformed migraine (disorder) (365775123) Chronic migraine with aura, not intractable, without status migrainosus (G43.E09) Active confirmed Vital Signs Heart Rate 102 /min 03/09/2024 Temperature 96.7 degrees Fahrenheit 03/09/2024 Oximetry 98 % 03/09/2024 Blood pressure diastolic 74 mm Hg 03/09/2024 Height 5 ft 2 in in 03/09/2024 Blood pressure systolic 124 mm Hg 03/09/2024 Weight 194 lbs 03/09/2024 BMI 35.48 kg/m2 03/09/2024 Encounters Encounter Location Date Provider Diagnosis Gómez Liu MD [address] [id number] 07/26/2023 Piero [place] Encounter for genera l adult medical examination without abnormal findings Z00.00 ; Mild intermittent asthma, uncomplicated J45.20 ; Nontoxic single thyroid nodule E04.1 ; Episodic tension-type headache, not intractable G44.219 ; Fibromyalgia M79.7 ; Aneurysm of carotid artery I72.0 ; Menopausal and female climacteric states N95.1 ; Other circadian rhythm sleep disorder G47.29 ; Hypertensive chronic kidney disease with stage 1 through stage 4 chronic kidney disease, or unspecified chronic kidney disease I12.9 ; Chronic kidney disease, stage 2 (mild) N18.2 ; Attention and concentration deficit R41.840 ; Calculus of kidney N20.0 ; Polyp of stomach and duodenum K31.7 ; Cholesterolosis of gallbladder K82.4 ; Cystic disease of liver Q44.6 ; Atrial premature depolarization I49.1 ; Ventricular premature depolarization I49.3 ; Vitamin D deficiency, unspecified E55.9 ; Family history of malignant neoplasm of ovary Z80.41 ; Encounter for screening mammogram for malignant neoplasm of breast Z12.31 ; Encounter for screening for malignant neoplasm of colon Z12.11 ; Encounter for screening for cardiovascular disorders Z13.6 ; Encounter for immunization Z23 ; Encounter for antibody response examination Z01.84 ; Encounter for screening for osteoporosis Z13.820 ; Encounter for screening for other viral diseases Z11.59 ; Encounter for screening examination for other mental health and behavioral disorders Z13.39 and Encounter for screening for malignant neoplasm of cervix Z12.4 Gómez Liu MD [address] [id number] 10/18/2023 Piero [place] Body mass index [BMI ] 31.0-31.9, adult Z68.31 ; Atopic dermatitis, unspecified L20.9 ; Encounter for blood-alcohol and blood-drug test Z02.83 ; Hypertensive chronic kidney disease with stage 1 through stage 4 chronic kidney disease, or unspecified chronic kidney disease I12.9 ; Chronic kidney disease, stage 2 (mild) N18.2 ; Polyp of stomach and duodenum K31.7 ; Cystic disease of liver Q44.6 and Calculus of kidney N20.0 Gómez Liu MD [address] [id number] 11/29/2023 Piero [place] 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 ; Personal history of transient ischemic attack (TIA), and cerebral infarction without residual deficits Z86.73 ; Paresthesia of skin R20.2 ; Aneurysm of carotid artery I72.0 ; Hypertensive chronic kidney disease with stage 1 through stage 4 chronic kidney disease, or unspecified chronic kidney disease I12.9 and Chronic kidney disease, stage 2 (mild) N18.2 Gómez Liu MD [address] [id number] 12/22/2023 Piero Alford Acute stress reactio n F43.0 ; Hypertensive chronic kidney disease with stage 1 through stage 4 chronic kidney disease, or unspecified chronic kidney disease I12.9 ; Chronic kidney disease, stage 2 (mild) N18.2 ; Body mass index [BMI] 36.0-36.9, adult Z68.36 ; Polyp of stomach and duodenum K31.7 ; Cystic disease of liver Q44.6 and Calculus of kidney N20.0 Gómez Liu MD [address] [id number] 02/01/2024 Piero Alford Acute upper respirat ory infection, unspecified J06.9 and Acute frontal sinusitis, unspecified J01.10 Gómez Liu MD [address] [id number] 03/09/2024 Piero Alford Hypertensive chronic kidney disease with stage 1 through stage 4 chronic kidney disease, or unspecified chronic kidney disease I12.9 ; Chronic kidney disease, stage 2 (mild) N18.2 ; Excessive and redundant skin and subcutaneous tissue L98.7 ; Furuncle of abdominal wall L02.221 ; Mild intermittent asthma, uncomplicated J45.20 ; Nontoxic single thyroid nodule E04.1 ; Episodic tension-type headache, not intractable G44.219 ; Fibromyalgia M79.7 ; Menopausal and female climacteric states N95.1 ; Calculus of kidney N20.0 ; Polyp of stomach and duodenum K31.7 ; Cholesterolosis of gallbladder K82.4 and Mixed hyperlipidemia E78.2 Gómez Liu MD [address] [id number] 06/17/2023 Piero Alford Menopausal and femal e climacteric states N95.1 Gómez Liu MD PC [address] [facility] [address] [place] [address] [id number] 06/22/2023 Piero Liu MD PC [address] [facility] [address] [place] [address] [id number] 07/15/2023 Piero Alford Gómez Liu MD PC [address] [facility] [address] [place] [address] [id number] 07/21/2023 Piero Alford Gómez Liu MD PC [address] [facility] [address] [place] [address] [id number] 07/28/2023 Piero Alford Gómez Liu MD PC [address] [id number] 10/19/2023 Piero Alford Gómez Liu MD PC [address] [id number] 11/29/2023 Piero Alford Gómez Liu MD PC [address] [id number] 12/01/2023 Piero Liu MD PC [address] [id number] 12/02/2023 Piero Alford Gómez Liu MD PC [address] [id number] 12/02/2023 Piero Alford 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 Gómez Liu MD PC [address] [id number] 12/03/2023 Piero Alford Gómez Liu MD PC [address] [id number] 12/10/2023 Piero Liu MD PC [address] [id number] 02/03/2024 Piero Alford Gómez Liu MD PC [address] [id number] 03/10/2024 Piero Liu MD PC [address] [id number] 04/10/2024 Piero Liu MD PC [address] [id number] 05/03/2024 Piero Alford Gómez Liu MD PC [address] [id number] 06/25/2023 Piero Alford Hypertensive chronic kidney disease with stage 1 through stage 4 chronic kidney disease, or unspecified chronic kidney disease I12.9 Gómez Liu MD [address] [id number] 06/25/2023 Piero Martinezbo Liu MD [address] [id number] 07/28/2023 Piero Martineze Gómez Liu MD [address] [id number] 10/25/2023 Piero Alford Hypertensive chronic kidney disease with stage 1 through stage 4 chronic kidney disease, or unspecified chronic kidney disease I12.9 Gómez Liu MD [address] [id number] 11/17/2023 Piero Alford Body mass index [BMI ] 31.0-31.9, adult Z68.31 Gómez Liu MD [address] [id number] 11/25/2023 Piero Martineze Gómez Liu MD [address] [id number] 11/30/2023 Piero Alford Gómez Liu MD [address] [id number] 11/30/2023 Piero Martinezbo Liu MD [address] [id number] 12/01/2023 Piero Feliberto Liu MD [address] [id number] 12/02/2023 Piero Feliberto Liu MD [address] [id number] 12/07/2023 Piero Alford Gómez Liu MD [address] [id number] 01/25/2024 Piero Alford Body mass index [BMI ] 36.0-36.9, adult Z68.36 Gómez Liu MD [address] [id number] 02/09/2024 Pieroelmer Martineze Chronic migraine wit h aura, not intractable, without status migrainosus G43.E09 Gómez Liu MD [address] [id number] 02/10/2024 Piero Alford Gómez Liu MD [address] [id number] 02/10/2024 Piero Alford Gómez Liu MD [address] [id number] 02/17/2024 Piero Alford Menopausal and femal e climacteric states N95.1 Gómez Liu MD [address] [id number] 03/24/2024 Piero Martinezbo Liu MD [address] [id number] 03/24/2024 Piero Alford Gómez Liu MD [address] [id number] 05/02/2024 Piero Alford Gómez Liu MD [address] [id number] 06/13/2024 Piero Alford Hypertensive chronic kidney disease with stage 1 through stage 4 chronic kidney disease, or unspecified chronic kidney disease I12.9 Assessments Encounter Date Diagnosis (ICD Code) Assessment Notes Treatment Notes Treatment Clinical Notes Section Notes 06/17/2023 Menopausal and female climacteric states (ICD-10 - N95.1) 06/25/2023 Hypertensive chronic kidney disease with stage 1 through stage 4 chronic kidney disease, or unspecified chronic kidney disease (ICD-10 - I12.9) 07/26/2023 Mild intermittent asthma, uncomplicated (ICD-10 - J45.20) Asthma appears controlled and pt to remain on current medication regimen. Should she have any symptom of acute exacerbation, pt to follow up for in office evaluation 07/26/2023 Encounter for general adult medical examination without abnormal findings (ICD-10 - Z00.00) General healthcare up-to-date. Will obtain updated routine labs.Plan will be for annual in 1 year 10/18/2023 Atopic dermatitis, unspecified (ICD-10 - L20.9) Discussed with patient the findings of rough patches that resemble that of eczema on her upper extremities. Would like patient to begin triamcinolone and to follow-up should area is not resolved with use of this medication. Also discussed with patient that she can apply 1 part triamcinolone with 1 part [id number] lotion to ensure area remains well-hydrated 10/18/2023 Body mass index [BMI] 31.0-31.9, adult (ICD-10 - Z68.31) Patient shares much concern and frustration of continued weight gain despite increasing her exercise by going to the gym 3-4 times a week, adjusting her diet, and working with her mental health providers to assist with coping strategies and stress management. Discussed with patient all weight loss medication options. Patient is agreeable to begin phentermine to see if this can better manage her appetite and assist in lowering her BMI and with weight loss. Patient aware that this medication will require monthly request as refills cannot be placed on this medicaiton. Patient to follow-up with any negative side effects that she may experience 10/25/2023 Hypertensive chronic kidney disease with stage 1 through stage 4 chronic kidney disease, or unspecified chronic kidney disease (ICD-10 - I12.9) 11/17/2023 Body mass index [BMI] 31.0-31.9, adult (ICD-10 - Z68.31) last filled 10/21/23 11/29/2023 Personal history of transient ischemic attack (TIA), and cerebral infarction without residual deficits (ICD-10 - Z86.73) Discussed with patient that it is unclear what the underlying cause was for her symptoms and admission to [facility] last week. Patient could have had a clot which lead to an ischemic stroke given her symptoms during admission and residual numbness to right side of face. 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 Discussed with patient that there are minimal ER notes to review (only reviewed what pt provided during her visit today). Our office will try and obtain notes for further review and also results of brain MRI. It is unclear if patient did suffer an ischemic stroke secondary to a clot given her symptoms during admission. Will move forward with an MRA of the head as well as a carotid ultrasound. Patient aware to follow-up should she have any return of symptoms or new symptoms of concern. 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 Patient has been able to track her dizzy episodes and right-sided facial numbness with high, increased anxiety that occurs at work. Patient does have a prescription for Ativan and encouraged patient to use this for increased panic episodes only. Would like patient to begin propranolol, 1 tablet up to 3 times a day, to assist with anxiety and stress. Plan will be for follow-up in 6 weeks to reassess stress levels and symptoms of facial numbness and dizziness since starting these medications. Patient is also pending an appointment in the coming weeks with a therapist and encouraged patient to look into the [employer] program online to further assist with coping strategies and stress management 12/22/2023 Hypertensive chronic kidney disease with stage 1 through stage 4 chronic kidney disease, or unspecified chronic kidney disease (ICD-10 - I12.9) BP stable at this time and pt to continue current medication regimen 01/25/2024 Body mass index [BMI] 36.0-36.9, adult (ICD-10 - Z68.36) 02/01/2024 Acute frontal sinusitis, unspecified (ICD-10 - J01.10) Discussed with patient her symptoms of nasal congestion for nearly 1 month and recent increase in sinus pain for the past 2 weeks. Discussed findings of maxillary sinus tenderness and due to her symptoms, will begin treatment for acute sinusitis. Patient requesting doxycycline as she has not responded well to Augmentin in the past. Patient aware to complete entire course of antibiotic and follow-up with any new or worsening symptoms of concern despite this treatment. Patient also encouraged to remain on her current allergy medication regimen to further assist in managing her sinus congestion due to seasonal allergies 02/01/2024 Acute upper respiratory infection, unspecified (ICD-10 - J06.9) Discussed with patient her symptoms and suspect that she does have acute sinusitis given length of time with symptoms. Would also like to rule out underlying viral illness and did complete a respiratory panel in office today for further evaluation 02/09/2024 Chronic migraine with aura, not intractable, without status migrainosus (ICD-10 - G43.E09) 02/17/2024 Menopausal and female climacteric states (ICD-10 - N95.1) 03/09/2024 Hypertensive chronic kidney disease with stage 1 through stage 4 chronic kidney disease, or unspecified chronic kidney disease (ICD-10 - I12.9) Blood pressure stable during today's visit patient to remain on current medication regimen 03/09/2024 Chronic kidney disease, stage 2 (mild) (ICD-10 - N18.2) Previous GFR noted to be in the 80s. Will repeat GFR level to ensure adequate level at this time 06/13/2024 Hypertensive chronic kidney disease with stage 1 through stage 4 chronic kidney disease, or unspecified chronic kidney disease (ICD-10 - I12.9) 03/09/2024 Excessive and redundant skin and subcutaneous tissue (ICD-10 - L98.7) Patient continues to work on lowering her BMI and weight loss but has noticed excess skin around the requesting referral to Dr. Lin for consultation of panniculectomy 11/29/2023 Paresthesia of skin (ICD-10 - R20.2) Discussed with patient that if this was an underlying stroke she could have residual symptoms such as numbness and tingling to the right side of her face for up to 6 to 12 months. Will move forward with further imaging and patient aware to follow-up with any worsening or new symptoms of concern. Discussed with patient that her neuro evaluation today was without significant findings but should she have any neurological symptoms of concern she is to contact the office and be seen urgently in an ER setting 12/22/2023 Chronic kidney disease, stage 2 (mild) (ICD-10 - N18.2) Previous GFR noted to be in the 80s. 10/18/2023 Encounter for blood-alcohol and blood-drug test (ICD-10 - Z02.83) Patient is requesting a drug screen as she needs this result to obtain a specific license for work 07/26/2023 Nontoxic single thyroid nodule (ICD-10 - E04.1) Patient with findings of thyroid nodules on previous u/s and negative FNA biopsy results. Plan will be to repeat ultrasound in 1 year to ensure nodules have not grown in size 07/26/2023 Episodic tension-type headache, not intractable (ICD-10 - G44.219) Stable and pt to continue tracking her headaches and should her headaches become more frequent or severe, pt aware to follow up to discuss further management options 12/22/2023 Body mass index [BMI] 36.0-36.9, adult (ICD-10 - Z68.36) Discussed with patient her increased stress level which is going to cause a barrier in her weight loss. Patient to work on coping strategies and continue to use phentermine to assist with lowering her BMI and weight loss. 03/09/2024 Furuncle of abdominal wall (ICD-10 - L02.221) Reviewed with patient her areas of furuncles located under pannus. Encouraged patient to apply cornstarch once a day to assist as a moisture barrier. Patient to also use topical mupirocin for management of erythematous pustules. Patient aware to follow-up if this treatment does not help resolve areas of concern 03/09/2024 Mild intermittent asthma, uncomplicated (ICD-10 - J45.20) Stable at present time and asthma appears well-controlled on current medication regimen 11/29/2023 Aneurysm of carotid artery (ICD-10 - I72.0) Patient previoulsy completed an MRA of neck given concerns of carotid aneurysm in the past. Patient aware that there were no findings of concern. Given her recent ER admission will obtain carotid u/s for further evaluation 07/26/2023 Fibromyalgia (ICD-10 - M79.7) Stable at present time and pt to follow up should she have a Fibro flare and need further management of her discomfort 10/18/2023 Hypertensive chronic kidney disease with stage 1 through stage 4 chronic kidney disease, or unspecified chronic kidney disease (ICD-10 - I12.9) Blood pressure stable during today's visit. Patient to remain on current medication regiment 07/26/2023 Aneurysm of carotid artery (ICD-10 - I72.0) Patient recently completed an MRA of neck given concerns of carotid aneurysm in the past. Patient aware that there were no findings of concern on this test and no further interventions warranted at this time 12/22/2023 Polyp of stomach and duodenum (ICD-10 - K31.7) Pt is followed by GI (Dr. Ochoa) due to recent removal of stomach polyps. Patient to follow-up with the specialist as scheduled to ensure proper repeat scheduling of endoscopy and colonoscopy 10/18/2023 Chronic kidney disease, stage 2 (mild) (ICD-10 - N18.2) Previous GFR noted to be in 60s with improvement on most recent labs in the 80s. 11/29/2023 Hypertensive chronic kidney disease with stage 1 through stage 4 chronic kidney disease, or unspecified chronic kidney disease (ICD-10 - I12.9) BP stable at this time and pt to continue current medication regimen 03/09/2024 Nontoxic single thyroid nodule (ICD-10 - E04.1) Patient with findings of thyroid nodules on previous u/s and negative FNA biopsy results. 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 Discussed with patient that she can discuss these findings with specialist (Oncologist) as she will be seeing this provider necxt week given fidings of a gallbladder polyp. 11/29/2023 Chronic kidney disease, stage 2 (mild) (ICD-10 - N18.2) Previous GFR noted to be in the 80s. 07/26/2023 Menopausal and female climacteric states (ICD-10 - N95.1) Stable patient to continue on topical compounded HRT as she has found this has helped improve some of her menopausal symptoms 10/18/2023 Polyp of stomach and duodenum (ICD-10 - K31.7) Pt is followed by GI (Dr. Ochoa) due to recent removal of stomach polyps. Patient to follow-up with the specialist as scheduled to ensure proper repeat scheduling of endoscopy and colonoscopy 07/26/2023 Other circadian rhythm sleep disorder (ICD-10 - G47.29) Patient continues to show concerns of overall sleep patterns and that she is not able to stay asleep each night. Discussed with patient that a sleep study would be helpful in determining her sleep patterns and also rule out sleep apnea as an underlying cause for her sleep disturbances and daytime fatigue. Patient agreeable to have referral placed to Dr. Robles's this for sleep consult and 12/22/2023 Calculus of kidney (ICD-10 - N20.0) Patient denies any concerning symptoms related to history of kidney stones. Patient to continue seeing her urologist as scheduled due to recurrent kidney stones 10/18/2023 Cystic disease of liver (ICD-10 - Q44.6) Patient with findings of multiple hepatic cystic lesions and suspicion of a liver hemangioma. Discussed with patient that she can discuss these findings with specialist (Oncologist) as shewill be seeing this provider in the coming weeks given fidings of a gallbladder polyp. 03/09/2024 Fibromyalgia (ICD-10 - M79.7) Stable at present time and pt to follow up should she have a Fibro flare for further acute management of her discomfort 10/18/2023 Calculus of kidney (ICD-10 - N20.0) Patient denies any concerning symptoms related to history of kidney stones. Patient to continue seeing her urologist as scheduled due to recurrent kidney stones 07/26/2023 Hypertensive chronic kidney disease with stage 1 through stage 4 chronic kidney disease, or unspecified chronic kidney disease (ICD-10 - I12.9) BP stable at this time 03/09/2024 Menopausal and female climacteric states (ICD-10 - N95.1) Stable patient to continue on topical compounded HRT as she has found this has helped improve her menopausal symptoms such as hot flashes 07/26/2023 Chronic kidney disease, stage 2 (mild) (ICD-10 - N18.2) Previous GFR noted to be in the 60s and repeat did increase to the 80s. Will repeat GFR level to ensure adequate level at this time 03/09/2024 Calculus of kidney (ICD-10 - N20.0) Patient with a history of kidney stones and is followed by urology for recent findings of recurrent left kidney stones 03/09/2024 Polyp of stomach and duodenum (ICD-10 - K31.7) Pt is followed by GI (Dr. Ochoa) for recent removal of stomach polyps. Patient to follow-up with this specialist as scheduled to ensure full resolution of polyps post surgical intervention 07/26/2023 Attention and concentration deficit (ICD-10 - R41.840) Patient shares much concerns of her inability to concentrate, focus, as well as shut her brain off. Provided patient with ADD/ADHD screening tool and patient completed and return to office for further evaluation and to determine if there is underlying concerns for ADD or ADHD. 07/26/2023 Calculus of kidney (ICD-10 - N20.0) Patient states she continues to have intermittent left flank pain and states she is followed by urology for concerns of persistent left kidney stones. Patient states she has a renal ultrasound scheduled in the coming weeks and will be seeing urology to determine next steps in management of her persistent kidney stones 03/09/2024 Cholesterolosis of gallbladder (ICD-10 - K82.4) Gallbladder polyp noted on previous abdominal u/s, and pt is scheduled to see a general surgeon [place] for further evaluation and to determine if her gallbladder should be removed due to this finding 03/09/2024 Mixed hyperlipidemia (ICD-10 - E78.2) Previous LDL noted to be 130. Patient's Rebollar score was noted to be 1.7%. Patient cardiovascular risk at this time is low we will continue to monitor lipid levels as patient works through lowering her BMI and reaching her weight loss goals 07/26/2023 Polyp of stomach and duodenum (ICD-10 - K31.7) Pt is followed by GI (Dr. Ochoa) for recent removal of stomach polyps. 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 Discussed with patient that she can discuss these findings with specialist, which she will be seeing in the coming weeks given fiding of a gallbladder polyp. 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 Pt to follow up with Dr. Denton as scheduled 07/26/2023 Ventricular premature depolarization (ICD-10 - I49.3) See plan above 07/26/2023 Vitamin D deficiency, unspecified (ICD-10 - E55.9) Will check level to verify that there is no deficiency 07/26/2023 Family history of malignant neoplasm of ovary (ICD-10 - Z80.41) Patient with family history of ovarian and uterine cancer. Given this family history, patient requesting a referral to gynecology for further evaluation of removal of the ovaries as they remain after her hysterectomy to ensure no potential risk in the future for ovarian cancer 07/26/2023 Encounter for screening mammogram for malignant neoplasm of breast (ICD-10 - Z12.31) Pt completed her mammogram in July 2022 and is due for repeat mammogram to ensure she remains up-to-date on breast cancer screening 07/26/2023 Encounter for screening for malignant neoplasm of colon (ICD-10 - Z12.11) Up-to-date on colon cancer screening as she completed this in 2022. Recommendation is repeat colonoscopy in 3 years and repeat endoscopy in 1 year 07/26/2023 Encounter for screening for cardiovascular disorders (ICD-10 - Z13.6) Blood pressure stable. Will check for comorbidity of hyperlipidemia and hyperglycemia to further assess risk 07/26/2023 Encounter for immunization (ICD-10 - Z23) Patient states her vaccines are up-to-date. Did review limited vaccine history and patient does not recall if she is up-to-date with her tetanus vaccine. Given this, will administer Tdap at today's visit which patient is agreeable to receive. Patient to also consider receiving the shingles series vaccine at her local pharmacy 07/26/2023 Encounter for antibody response examination (ICD-10 - Z01.84) Will obtain an MMR titer 07/26/2023 Encounter for screening for osteoporosis (ICD-10 - Z13.820) Up-to-date on osteoporosis screening as she completed this in 2022 given recurrent kidney stones and elevated calcium levels in the past 07/26/2023 Encounter for screening for other viral diseases (ICD-10 - Z11.59) Will screen for hepatitis C as per general recommendation 07/26/2023 Encounter for screening examination for other mental health and behavioral disorders (ICD-10 - Z13.39) PHQ score reviewed and no further interventions warranted at this time 07/26/2023 Encounter for screening for malignant neoplasm of cervix (ICD-10 - Z12.4) Patient with total hysterectomy and does not have a cervix. Due to this, patient has not completed Pap smears 11/29/2023 Other Patient is pending an MRI of abdomen with contrast as ordered by her gastroenterologis t. Patient states this specialist did prescribe medications to premedicate prior to IV dye administration. Patient states she would like her MRA completed at [facility] if possible so she can be premedicated once for both the MRI as well as the MRA. Encouraged patient to reach out to [facility] directly to see if both of these images can be done at the same time Plan Of Treatment Pending Test Test Name Order Date DEXA 07/20/2022 MAMMOGRAM, SCREENING 07/20/2022 MAMMOGRAM, SCREENING 07/26/2023 ACTH 01/27/2023 COMPLETE URINALYSIS 06/08/2022 CORTISOL 30 MIN POST 01/27/2023 CORTISOL 60 MIN POST 01/27/2023 TESTOSTERONE 08/17/2022 URINARY MICROALBUMIN 06/08/2022 Dexa Bone Density (Axial) 08/25/2022 SURE SWAB VAGINOSIS VAGINITIS PLUS 12/03 SURE SWAB VAGINOSIS VAGINITIS PLUS 01/27 HOLTER MONITOR, 15 DAYS, INTERPRETATION 07/30/2022 Phosphorus-[id number] 03/09/2024 Testosterone-[id number] 03/09/2024 Progesterone-841805 03/09/2024 Estrogens, Total-[id number] 03/09/2024 CBC With Differential/Platelet-610839 PTH, Intact-198036 03/09/2024 Albumin/Creatinine Ratio,Urine-[id number] Comp. Metabolic Panel [phone] 2023 LP+Non-HDL Cholesterol-582230 03/09/2024 UA/M w/rflx Culture, Routine-[id number] 07/05 UA/M w/rflx Culture, Routine-[id number] 08/2023 TSH reflex to [id number] 03/09/2024 Next Appt Details Provider Name:Piero Alford , 07/31/2024 08:30:00 AM, [address] [place] [address], [address], [place], [place], [id number], Insurance Providers Payer Name Payer Address Payer Phone Subscriber Number Group Number Insured Name Patient Relationship to Insured Coverage Start Date Coverage End Date [facility] [address] [place] [address] [id number] Patti Drake Self - patient is the insured Medical (General) History Medical History History ICD Code asthma - moderate persistent hypertension fibromyalgia PAC's and PVC's kidney stones 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
--- OUTSIDE RECORDS SUMMARY | 2024-06-16 15:41 | XMS_ITS ---
Author Organization Gómez Liu MD Address [address] [phone] Care Team Providers Care Orthotic/Prosthetic Practitioner Name Role Phone Jane Dao Primary Care [...] Unknown Allergy Act leti almond allergenic extract [place] (Diagnostic) Unknown Drug Allergy Active Shellfish (FN) [...] Date Provider Diagnosis Gómez Liu MD [address] [facility] [address] [place], [place] [phone] 05/02/2024 Jane Dao Plan Of Treatment Medication Medication Name Sig Start Date Stop Date Notes Phentermine HCl 15 MG 1 capsule Oral Onc e a day for 30 days 05/02/2024 Next Appt Details Provider Name:Jane Dao , 07/31/2024 08:30:00 AM, [address] [facility], [address], [place], [place], [phone], Progress Notes * Patti SULLIV[birth year]OB:[birth year] (49 yo F)Acc No.[id number]:05/02/2024 Patient:?Patti SULLIVAN :1975???Age:49 Y???Sex:Female Address:[address] [place] [id number] * Refills? Refill Phentermine HCl Capsule, 15 [...] true * Date:? Generated for Svitlana castrejon/Beatriz/Poppy on:?06/16/2024 03:21 PM EDT
--- OUTSIDE RECORDS SUMMARY | 2024-06-16 15:41 | XMS_ITS | Encounter Summary ---
Author Organization [facility] Address [address] [place] [address] Care Team Providers Care Splicer Helper Name Role Phone Jane Dao MD Primary Care Provider [phone] Encounter Details Date Type Department Care Team (Latest Contact Info) Description 06/09/2024 3:00 PM EST Pre-Admission Testing [facility] in [address] [place] [phone] Anu Poe, SPINE NURSE [address] [facility] [address] [place] [address] Preprocedural examination (Primary Dx); Mild intermittent asthma without complication; Fibromyalgia; Anxiety; Obesity (BMI 30-39.9); Migraine without aura and without status migrainosus, not intractable; Hypertension, unspecified type Social History Tobacco Use Types Packs/Day Years Used Date Smoking Tobacco: Never Smokeless Tobacco: Never Alcohol Use Standard Drinks/Week Comments Not Currently 0 (1 standard drink = 0.6 oz pur e alcohol) less than monthly AUDIT-C Answer Date Recorded Q1: How often [...] PM EST documented as of this encounter Last Filed Vital Signs Vital Sign Reading Time Taken Comments Blood Pressure 132/90 06/09/2024 3:22 PM EST Pulse 99 06/09/2024 3:22 PM EST Temperature 36.5 ??C (97.7 ??F) 06/09/2024 3:22 PM ES T Respiratory Rate - - Oxygen Saturation 99% 06/09/2024 3:22 PM EST Inhaled Oxygen Concentration - - Weight 90.4 kg (199 lb 6.4 oz) 06/09/2024 3:22 P M EST Height 158.8 cm (5' 2.5 ) 06/09/2024 3:22 PM EST Body Mass Index 35.89 06/09/2024 3:22 PM EST documented in this encounter Patient Instructions * Patient Instructions* Anu Poe, PARTH - 06/09/2024 3:00 PM EST Images from the original note were not included. PRE-PROCEDURE INSTRUCTIONS PROCEDURE ARRIVAL TIME & LOCATION INFORMATION: You will receive a [employer] message between 12:00-4:00 PM the day before your procedure with your arrival time and location. If you have not received a message by 4:30 pm, please call the surgical timeline at [phone]. Please do not hesitate to contact us with any questions or concerns about the following instructions at [phone]. BATHING BEFORE SURGERY OR PROCEDURE: To reduce the risk of surgical site infection, wash before surgery using Hibiclens Solution (Chlorhexidine Gluconate 4% Solution/CHG), Hibiclens Wipes (Chlorhexidine Gluconate 2% Cloths) or antibacterial wash (Dial). These antibacterial washes may be purchased from your local pharmacy without a pres cription. If you are using the Hibiclens Solution (Chlorhexidine Gluconate 4% Solution/CHG), this will be a two-step process to be done the night before and the morning of the procedure. Please follow the steps below: Shower as usual. Turn the water off and stay in the shower. Apply half of the bottle of Hibiclens on a clean washcloth. Apply the soap from your neck down to your toes, avoiding the face and private area. Leave it on your skin for 2 minutes. Turn the water back on and rinse off. Dry off with a clean towel and put on clean clothing. If you are using the Hibiclens Wipes (Chlorhexidine Gluconate 2% Cloths), please follow the instructions provided by the historic sites supervisor or your provider. Avoid hair removal near surgical site within 48 hours of surgery (shaving, electric shaver, depilatory cream). Do NOT use lotion, powder, perfume, cologne or deodorant after showering with antibacterial wash. Perform oral hygiene (brush teeth and rinse mouth). Hibiclens solution (chlorhexidine gluconate) is NOT to be drank or ingested. DAY OF SURGERY OR PROCEDURE: Do NOT eat any food or full liquids 8 (EIGHT) hours prior to arrival to the hospital or as instructed by your doctor. CLEAR liquids may be consumed up to 4 (FOUR) hours prior to your arrival time. After this, NO chewing gum or hard candy may be consumed. The ONLY acceptable options for clear liquids are: Water Pulp-free clear fruit juice, i.e., apple juice, cranberry juice, grape juice - NO orange juice Clear energy drink such as Gatorade Black tea or black coffee - NO milk, cream, honey or thickeners Carbonated beverages Commercially available pre-surgery carbohydrate loading nutrition drinks (cannot contain protein) MEDICATIONS: Please follow the medication instructions exactly as noted below for your safety. If you are taking any supplements, herbal medications, or nonsteroidal anti- inflammatory drugs (NSAIDs), please stop taking them 1 week before your procedure (these medications may increase your riskof bleeding) For medications to be taken on the morning of surgery, you may take them with a sip of water ONLY. MEDICATION INSTRUCTIONS TO FOLLOW BEFORE SURGERY Medication Sig Note acetaminophen (TYLENOL) 325 MG tablet Take 3 tablets (975 mg total) by mouth. OK to take as needed,including on the day of surgery. HYDROcodone-acetaminophen (VICODIN) 5-300 MG per tablet Take 1 tablet by mouth 4 times daily (every6 hours) as needed for severe pain. OK to take as needed, including on the day of surgery. HYDROmorphone (DILAUDID) 2 MG tablet Take 1 tablet (2 mg total) by mouth 3 times daily (every 8 hours) as needed for severe pain. Max Daily Amount: 6 mg OK to take as needed, including on the day of surgery. ibuprofen (MOTRIN) 800 mg tablet Take 1 tablet (800 mg total) by mouth 3 times daily (every 8 hours) as needed for mild pain. Hold 7 days before surgery. Take last dose on 06/07 levalbuterol (XOPENEX HFA) 45 mcg/puff inhaler INHALE 1 PUFF BY MOUTH EVERY 6 HOURS NEEDED OK totake as needed, including on the day of surgery. levocetirizine (Xyzal Allergy 24HR) 5 MG tablet Take 1 tablet (5 mg total) by mouth every evening. Take the night before surgery. losartan (COZAAR) 50 MG tablet Take 1 tablet (50 mg total) by mouth every morning. Do NOT take morning of surgery. magnesium 30 MG tablet Take 1 tablet (30 mg total) by mouth 2 (two) times a day. Do NOT take morning of surgery. meclizine (ANTIVERT) 12.5 MG tablet Take 1 tablet (12.5 mg total) by mouth 3 (three) times a day asneeded for dizziness. Do NOT take morning of surgery. Multiple Vitamins-Minerals (b falzkde-L-M-zinc) tablet Take 1 tablet by mouth every morning. Hold 7days before surgery. Take last dose on 06/07 ondansetron (ZOFRAN) 4 MG tablet Take 1 tablet (4 mg total) by mouth 3 times daily (every 8 hours) as needed for nausea or vomiting. OK to take as needed, including on the day of surgery. phenazopyridine (PYRIDIUM) 200 MG tablet Take 1 tablet (200 mg total) by mouth 3 (three) times a day as needed for bladder spasms (bladder irritation). Do NOT take morning of surgery. phentermine 15 MG capsule Take 1 capsule (15 mg total) by mouth every morning. Hold 4 days prior tosurgery. Take last dose on 06/09 SUMAtriptan (IMITREX) 25 MG tablet TAKE 1 TABLET BY MOUTH EVERY 2 TO 4 HOURS NEEDED FOR MIGRAINEHEADACHE. DO NOT EXCEED 8 DOSES IN 24 HOURS. OK to take as needed, including on the day of surgery. tamsulosin (FLOMAX) 0.4 MG capsule Take 1 capsule (0.4 mg total) by mouth every morning. Take on the morning of surgery. traMADol (ULTRAM) 50 MG tablet Take 1 tablet (50 mg total) by mouth 3 times daily (every 8 hours) as needed for severe pain. OK to take as needed, including on the day of surgery. Bring your superintendent drivers's license or photo ID and Insurance card(s) Wear loose, comfortable clothing and rubber-soled shoes Do NOT bring any valuables - you may bring your cell phone and/or money, credit card or check for co-pay if instructed Prior to going to the operating room you will have to remove: Glasses/contact lenses Make-up/nail romansh Hair pins/hairpiece Undergarments Jewelry/body piercing(s). Potential risks associated with failure to remove jewelry/body piercing(s) prior to surgery include but are not limited to: electrical sparrow, impeding circulation, infection, choking/strangulation, damage or loss of jewelry AFTER SURGERY: If you are going home on the same day as your surgery, please make arrangements to have a responsible adult (18 years of age or older) drive you home. Private transportation consists solely of a four-wheeled road vehicle with safety belt access. If using ridesharing (Uber, Lyft, Taxi, [place] etc.) you must be accompanied by a responsible adult (18 years of age or older). Your surgeon will provide specific instructions for care while recovering at home. In the event of any difficulty, please call your surgeon. For the first 24 hours following your surgery or procedure, we recommend that you do not engage in strenuous activities, consume alcoholic beverages, drive or make critical decisions. For the most up-to-date visitation policies in our facilities, please click here. For parking questions within [facility], please click here. documented in this encounter Progress Notes * Anu Poe APRN - 06/09/2024 3:00 PM EST Bloodless Medicine Evaluation & Consent Discussion Paper consent form MUST be completed Reason for declining blood products: Jehovah's Witnesses Bleeding risk and Screening for anemia Bloodless medicine and surgery discussion in preparation for: Procedure Date Procedure Surgeon (s) 06/14/2024 CYSTOSCOPY RETROGRADE URETEROSCOPY LITHOTRIPSY STENT INSERTION Casey García MD Procedural bleeding risk: Low No results found for: WBC , HGB , HCT , PLT Is anemia workup needed?: Blood work pending Bloodless discussion checklist (Check appropriate box once discussed with patient) Discussion was conducted with Patient in Private [x]Discussed the risks and benefits of NOT accepting blood product transfusion (as detailed on the paper form). [x]Patient understands that blood product refusal may decrease their probability of regaining normal health and if clinically significant bleeding cannot be stopped, it may cause . [x]Patient realizes that with these restrictions, the care team may be forced to proceed more quickly to definitive procedures that have a chance of stopping the bleeding (bowel resection, delivery, hysterectomy, amputation, etc.) This is due to the lack of a blood buffer that enables the treating team to replace the blood lost during preliminary attempts at hemostasis. [x]Patient understands that they may reverse these restrictions at ANY time and accept blood. If this occurs, the care team will abide by all patient privacy standards and not discuss the acceptance of blood products in front of any family or judaism members without patient consent. BLOOD PRODUCT OPTION DISCUSSION Patient's choices for blood products are: MAJOR BLOOD FRACTIONS: NO Whole Blood NO Red blood cells (RBCs) NO White blood cells (WBCs) NO Platelets NO Plasma (or Fresh Frozen Plasma) MINOR BLOOD FRACTIONS: Accepts - Albumin Accepts - Antibodies (E.g. IVIG/Rhogam) NO Cryoprecipitate Accepts - Clotting Factors Accepts - Tissue Adhesives MY OWN BLOOD IN A CLOSED SYSTEM: Accepts - Auto Transfusion (Cell saver, OrthoPAT, Hemodilution etc.) Accepts - Heart Lung machine Accepts - Dialysis RECOMBINANT PRODUCTS: Accepts - Recombinant clotting factors Accepts - Recombinant erythropoietin Paper consent form completed and placed in: [facility] Anu Poe APRN 06/09/2024 3:29 PM documented in this encounter H&P Notes * Anu Poe APRN - 06/09/2024 3:00 PM EST Images from the original note were not included. PREOPERATIVE - HISTORY AND PHYSICAL Primary Care Provider: Jane Dao MD Procedure Date Procedure Laterality Surgeon(s) 06/14/2024 CYSTOSCOPY RETROGRADE URETEROSCOPY LITHOTRIPSY STENT INSERTION Left Casey García MD Anesthesia Preoperative Diagnosis for Planned Procedure general Renal calculi [N20.0], Hydronephrosis with urinary obstruction due to ureteral calculus [N13.2] ASSESSMENT & PLAN Preop Outcome - Optimized, No further preoperative testing or consultations needed Mild intermittent asthma without complication Medication compliant with inhaler therapy. No recent flares or hospitalizations. Continue current medication regimen as prescribed. Continue plan as previously directed by your provider. Fibromyalgia Managed with current regimen and PT. Continue current medication regimen as prescribed. Continue plan as previously directed by your provider. Anxiety Managed with integrated threapiesy. Patient denies suicidal or homicidal ideation. Continue currentmedication regimen as prescribed. Patient to follow up with provider as previously directed. Obesity (BMI 30-39.9) Managed with Phentermine. Diet, exercise and lifestyle modifications. Migraine without aura and without status migrainosus, not intractable Well-controlled and managed with Imitrex PRN. Continue current medication regimen as prescribed. Continue plan as previously directed by your provider. Declines blood products Patient declines blood products secondary to both episcopalian and personal reasons. Bloodless medicine consult completed and scanned to [facility]. Addendum: Lab review PRE-OP RISK ASSESSMENT & OPTIMIZATION Perioperative Risk Scores ? Global - METS 4 or more. ASA Class: 2 ? Cardiac - RCRI: 0, RCRI risk: 0.5 %, [place] MIGUEL ANGEL risk (%): 0 ? Pulmonary - ELEVATED Pulmonary Risk STOPBANG - 2 ? MISC - AUDIT-C Total Score - Female: 0, RAPT Score: 11 PREOP CARDIAC RISK ASSESSMENT Planned for Time-Sensitive, Low risk surgical procedure. No active cardiac conditions. has pre-existing cardiac co-morbidity. No chest pain or dyspnea at rest or exertion. EKG: Not indicated per [facility] Preop guideline. RCRI score is 0 & Age is less than 65 years, No further preoperative cardiac testing is indicated. Preop Cardiology consult not needed. 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 Perioperative Plan and Recommendations: Known H/o anesthesia related adverse events (PONV / slow emergence), Family h/o anesthesia issues (Mother and Sister - slow emergence / PONV) Declines blood products. BLOODLESS consent form was completed. H/o urinary retention, monitor perioperatively Alcohol cessation discussed MEDICATION INSTRUCTIONS TO FOLLOW BEFORE SURGERY Medication Sig Note acetaminophen (TYLENOL) 325 MG tablet Take 3 tablets (975 mg total) by mouth. OK to take as needed,including on the day of surgery. HYDROcodone-acetaminophen (VICODIN) 5-300 MG per tablet Take 1 tablet by mouth 4 times daily (every6 hours) as needed for severe pain. OK to take as needed, including on the day of surgery. HYDROmorphone (DILAUDID) 2 MG tablet Take 1 tablet (2 mg total) by mouth 3 times daily (every 8 hours) as needed for severe pain. Max Daily Amount: 6 mg OK to take as needed, including on the day of surgery. ibuprofen (MOTRIN) 800 mg tablet Take 1 tablet (800 mg total) by mouth 3 times daily (every 8 hours) as needed for mild pain. Hold 7 days before surgery. Take last dose on 06/07 levalbuterol (XOPENEX HFA) 45 mcg/puff inhaler INHALE 1 PUFF BY MOUTH EVERY 6 HOURS NEEDED OK totake as needed, including on the day of surgery. levocetirizine (Xyzal Allergy 24HR) 5 MG tablet Take 1 tablet (5 mg total) by mouth every evening. Take the night before surgery. losartan (COZAAR) 50 MG tablet Take 1 tablet (50 mg total) by mouth every morning. Do NOT take morning of surgery. magnesium 30 MG tablet Take 1 tablet (30 mg total) by mouth 2 (two) times a day. Do NOT take morning of surgery. meclizine (ANTIVERT) 12.5 MG tablet Take 1 tablet (12.5 mg total) by mouth 3 (three) times a day asneeded for dizziness. Do NOT take morning of surgery. Multiple Vitamins-Minerals (b czpbmbb-E-X-zinc) tablet Take 1 tablet by mouth every morning. Hold 7days before surgery. Take last dose on 06/07 ondansetron (ZOFRAN) 4 MG tablet Take 1 tablet (4 mg total) by mouth 3 times daily (every 8 hours) as needed for nausea or vomiting. OK to take as needed, including on the day of surgery. phenazopyridine (PYRIDIUM) 200 MG tablet Take 1 tablet (200 mg total) by mouth 3 (three) times a day as needed for bladder spasms (bladder irritation). Do NOT take morning of surgery. phentermine 15 MG capsule Take 1 capsule (15 mg total) by mouth every morning. Hold 4 days prior tosurgery. Take last dose on 06/09 SUMAtriptan (IMITREX) 25 MG tablet TAKE 1 TABLET BY MOUTH EVERY 2 TO 4 HOURS NEEDED FOR MIGRAINEHEADACHE. DO NOT EXCEED 8 DOSES IN 24 HOURS. OK to take as needed, including on the day of surgery. tamsulosin (FLOMAX) 0.4 MG capsule Take 1 capsule (0.4 mg total) by mouth every morning. Take on the morning of surgery. traMADol (ULTRAM) 50 MG tablet Take 1 tablet (50 mg total) by mouth 3 times daily (every 8 hours) as needed for severe pain. OK to take as needed, including on the day of surgery. Risk assessment & appropriate instructions reviewed with the patient and/or family in layman's terms. They verbalized understanding. Subjective HISTORY OF PRESENT ILLNESS Chief complaint - Patti Drake is a 49 y.o. female seen today for a preoperative assessment. Relevant Brief history for Procedural indication - This is a 49 year old female who [facility] for preoperative risk stratification as she is scheduled for the above procedure. Positive for Recent illness, ER visit or hospitalization (02/2024 - Complex migraines), Hypertension, Cancer (skin cancer), Lung disease, Corticosteroid Use, H/o COVID-19 Negative for Heart disease/stents, Irregular heart beat or arrhythmia, Implantable device, DM or Pre-Diabetes, Kidney disease, Liver disease, Immunocompromised, ANA MARIA, Stroke or TIA, Seizure disorder, Vascular disease or stents, DVT or PE, Clotting disorder, Assistive devices, H/o MRSA, H/o Cdiff, Anemia and H/o transfusion Bleeding risk screening - no h/o Excessive Bleeding, no h/o Bleeding disorder and no Family h/o bleeding disorder. Baseline medications with impact on bleeding risk - NSAIDs or Herbals H/o anesthesia related adverse events (PONV / slow emergence) Refuses blood products. Has family history of anesthesia issues (Mother and Sister - slow emergence / PONV) and unprovoked DVT or PE (Father and Sister DVT). no Family h/o clotting disorder. REVIEW OF SYSTEMS HEENT: farsighted. Genitourinary - Positive for Frequency and Urinary retention Psychiatric - Positive for Anxiety Respiratory; Cardiovascular; Dermatologic; NEGATIVE except as noted in HPI. Past Medical History: Diagnosis Date Anesthesia complication trouble waking up with versed. does WELL with propofol Anxiety Asthma Cancer (HCC) 1977 on back Colon polyp Family history of cancer Fibromyalgia Genetic testing negative BRCA Hypertension Kidney stones Migraine complex migraines - mimics stroke symptoms. manifests as R side weakness. Polyp of stomach PONV (postoperative nausea and vomiting) Post-menopausal PVC (premature ventricular contraction) Tachycardia resolved post hormonal balance post menopausal. Transfusion of blood product refused for episcopalian reason Vertigo Past Surgical History: Procedure Laterality Date COLONOSCOPY 2021 ESOPHAGOGASTRODUODENOSCOPY 2023 GANGLION CYST EXCISION Left PARTIAL HYSTERECTOMY transvaginal SKIN LESION EXCISION 1977 canceroous on back URETHRAL SLING Social History Tobacco Use Smoking status: Never Smokeless tobacco: Never Vaping Use Vaping status: Never Used Substance Use Topics Alcohol use: Not Currently Comment: less than monthly Drug use: Never Family History Problem Relation Age of Onset [...] Paternal Uncle Breast cancer Maternal Cousin 33 Allergies Allergen Reactions Cephalexin Anaphylaxis Codeine Other (See Comments) LOC Definity [Perflutren Lipid Microsphere] Anaphylaxis Gentamicin Anaphylaxis Influenza Vaccines Anaphylaxis Iodinated Contrast Media Anaphylaxis Percocet [Oxycodone-Acetaminophen] Shortness Of Breath Respiratory depression Pineapple Anaphylaxis Seafood Anaphylaxis White Kidney Marie [Phaseolus] Anaphylaxis Augmentin [Amoxicillin-Pot Clavulanate] Hives Bactrim [Sulfamethoxazole-Trimethoprim] Swelling Diflucan [Fluconazole] Hives Gadolinium Swelling Scopolamine GI Intolerance/Nausea/Vomiting Bad reaction Versed [Midazolam] GI Intolerance/Nausea/Vomiting Objective Vitals: 06/09/24 1522 BP: (!) 132/90 BP Location: Left arm Patient Position: Sitting Pulse: 99 Temp: 97.7 ??F (36.5 ??C) TempSrc: Temporal SpO2: 99% Weight: 90.4 kg (199 lb 6.4 oz) Height: 1.588 m (5' 2.5 ) Body mass index is 35.89 kg/m??. Physical Exam Constitutional - alert. well appearing and not in acute distress. Head - normocephalic and atraumatic. Ear - right and left external ear normal. Eyes - PERRL, conjunctivae normal and extraocular movements intact. no scleral icterus. Nose - appears normal. Neck - supple and normal range of motion. Cardiovascular - normal rate and regular rhythm. normal heart sounds and normal pulses. no murmur. Pulmonary - breath sounds present bilaterally. no wheezing and no crackles. Abdominal - soft and bowel sounds normal. no distension, no tenderness and no hernia. Musculoskeletal - + CVA Tenderness Skin - warm. no rash, no bruising and no jaundice. Neurological - alert and oriented x 4. Relevant data reviewed Lab Results Component Value Date WBC 8.3 06/09/2024 HGB 13.1 06/09/2024 HCT 40.3 06/09/2024 PLT 226 06/09/2024 NA 142 06/09/2024 K 4.2 06/09/2024 CL 107 06/09/2024 CO2 26 06/09/2024 ANIONGAP 9 06/09/2024 CALCIUM 9.3 06/09/2024 BUN 17 06/09/2024 CREAT 0.9 06/09/2024 EGFR 77 06/09/2024 GLUC 86 06/09/2024 documented in this encounter Miscellaneous Notes * Assessment & Plan Note - Anu Poe APRN - 06/09/2024 3:22 PM EST Associated Problem(s): Hypertension Well-controlled by lifestyle and medication. Continue current medication regimen as prescribed. Continue plan as previously directed by your provider. * Assessment & Plan Note - Anu Poe APRN - 06/09/2024 3:17 PM EST Associated Problem(s): Migraine without aura and without status migrainosus, not intractable Well-controlled and managed with Imitrex PRN. Continue current medication regimen as prescribed. Continue plan as previously directed by your provider. * Assessment & Plan Note - Anu Poe APRN - 06/09/2024 3:17 PM EST Associated Problem(s): Obesity (BMI 30-39.9) Managed with Phentermine. Diet, exercise and lifestyle modifications. * Assessment & Plan Note - Anu Poe APRN - 06/09/2024 3:16 PM EST Associated Problem(s): Anxiety Managed with integrated threapiesy. Patient denies suicidal or homicidal ideation. Continue currentmedication regimen as prescribed. Patient to follow up with provider as previously directed. * Assessment & Plan Note - Anu Poe APRN - 06/09/2024 3:15 PM EST Associated Problem(s): Fibromyalgia Managed with current regimen and PT. Continue current medication regimen as prescribed. Continue plan as previously directed by your provider. * Assessment & Plan Note - Anu Poe APRN - 06/09/2024 3:14 PM EST Associated Problem(s): Mild intermittent asthma without complication Medication compliant with inhaler therapy. No recent flares or hospitalizations. Continue current medication regimen as prescribed. Continue plan as previously directed by your provider. documented in this encounter Plan of Treatment Upcoming Encounters Date Type Department Care Team (Late st Contact Info) Description 07/31/2024 9:00 AM EDT Office Visit [facility] [address] [facility] [address] [place] [id number] Hope Peralta MD [address] [facility] [address] [place] [address] Scheduled Orders Name Type Priority Associated Diagnoses Orde r Schedule BASIC METABOLIC PANEL Lab Routine Preprocedural examination Ordered: 06/09/2024 Complete Blood Count, with Differential Lab Routine Preprocedural examination Ordered: 06/09/2024 documented as of this encounter Procedures Procedure Name Priority Date/Time Associated Diagnosis Comments URINE CULTURE Routine 06/09/2024 2:50 PM EST Preprocedural examination documented in this encounter Results * Urine Culture (06/09/2024 2:50 PM EST) Culture Sterile or less than 1000 col/mL 06/11/2024 11:16 AM EDT [facility] Urine Urine specimen obtained by clean catch procedure / Unknown 06/09/2024 2:50 PM EST 06/09/2024 9:21 PM EST Comment:Urine Anu Poe APRN MICROBIOLOGY - GEN ERAL ORDERABLES [facility] [address] [place] [address], documented in this encounter Visit Diagnoses Diagnosis Preprocedural examination- Primary Unspecified pre-operative examination Mild intermittent asthma without complication Fibromyalgia Unspecified myalgia and myositis Anxiety Anxiety state, unspecified Obesity (BMI 30-39.9) Migraine without aura and without status migrainosus, not intractable Hypertension, unspecified type documented in this encounter Care Teams Splicer Helper Relationship Specialty Start Date End Date Jane Dao MD [address] [place] [id number] PCP - General General Medicine 05/31/23 documented as of this encounter
--- OUTSIDE RECORDS SUMMARY | 2024-06-16 15:41 | XMS_ITS | Encounter Summary ---
Author Organization [facility] Address [address] [place] [address] Care Team Providers Care Web Assistant Name Role Phone Jane Dao MD Primary Care Provider [phone] Reason for Visit * Reason Comments Abdominal Pain Encounter Details Date Type Department Care Team (Late st Contact Info) Description 06/15/2024 9:40 AM EDT - 06/15/2024 3:58 PM EDT Emergency [facility] Emergency Department [address] [place] [address] Mak Joy MD 80 [facility] [address] [place] [address] Ureteral stent present (Primary Dx); UTI (urinary tract infection) Discharge Disposition: Home or Self Care Social History Tobacco Use Types Packs/Day Years [...] Sign Reading Time Taken Comments Blood Pressure 133/76 06/15/2024 3:22 PM EDT Pulse 104 06/15/2024 3:22 PM EDT Temperature 36.8 ??C (98.2 ??F) 06/15/2024 3:22 PM ED T Respiratory Rate 18 06/15/2024 3:22 PM EDT Oxygen Saturation 96% 06/15/2024 3:22 PM EDT Inhaled Oxygen Concentration - - Weight - - Height - - Body Mass Index - - documented in this encounter Discharge Instructions * Discharge Instructions* Elia Kunz PA-C - 06/15/2024 2:50 PM EDT You were evaluated in the emerge department due to left flank pain, left abdominal pain. This is likely secondary to your recent stent placement. Your lab work was overall reassuring although noted an elevated white count. This could be a sign of infection or could be reactive from your recent procedure. There is mild evidence of UTI on your urinalysis, we will treat this with ciprofloxacin. To take 500 mg twice daily for the next 7 days. Please follow-up with your urologist. May take [id number] to 800 mg 3 times daily, Tylenol as needed for pain, may take Dilaudid as prescribed. Return [facility] ED for fevers, persistent vomiting, worsening or new onset of symptoms. documented in this encounter Medications at Time of Discharge Medication Sig Dispensed Refills Start Date End Date acetaminophen (TYLENOL) 325 MG tablet Take 3 tablets (975 mg total) by mouth. 03/17/2023 ciprofloxacin (CIPRO) 500 MG tablet Take 1 tablet (500 mg total) by mouth 2 (two) times a day. 14 tablet 06/15/2024 06/22/2024 HYDROcodone-acetaminop hen (VICODIN) 5-300 MG per tablet Take 1 tablet by mouth 4 times daily (every 6 hours) as needed for severe pain. HYDROmorphone (DILAUDID) 2 MG tabletIndications:Calc ulus of kidney,Left flank pain Take 1 tablet (2 mg total) by mouth 3 times daily (every 8 hours) as needed for severe pain. Max Daily Amount: 6 mg 10 tablet 06/07/2024 ibuprofen (MOTRIN) 800 mg tabletIndications:Calc ulus of kidney,Left flank pain Take 1 tablet (800 mg total) by mouth 3 times daily (every 8 hours) as needed for mild pain. 30 tablet 05/23/2024 levalbuterol (XOPENEX HFA) 45 mcg/puff inhaler INHALE 1 PUFF BY MOUTH EVERY 6 HOURS NEEDED 09/16/2023 levocetirizine (Xyzal Allergy 24HR) 5 MG tablet Take 1 tablet (5 mg total) by mouth every evening. 03/15/2023 losartan (COZAAR) 50 MG tablet Take 1 tablet (50 mg total) by mouth every morning. 07/29/2023 magnesium 30 MG tablet Take 1 tablet (30 mg total) by mouth 2 (two) times a day. meclizine (ANTIVERT) 12.5 MG tablet Take 1 tablet (12.5 mg total) by mouth 3 (three) times a day as needed for dizziness. Multiple Vitamins-Minerals (b heyurmy-F-L-zinc) tablet Take 1 tablet by mouth every morning. ondansetron (ZOFRAN) 4 MG tabletIndications:Left flank pain Take 1 tablet (4 mg total) by mouth 3 times daily (every 8 hours) as needed for nausea or vomiting. 10 tablet 05/23/2024 phenazopyridine (PYRIDIUM) 200 MG tabletIndications:Calc ulus of kidney Take 1 tablet (200 mg total) by mouth 3 (three) times a day as needed for bladder spasms. 30 tablet 06/14/2024 phenazopyridine (PYRIDIUM) 200 MG tabletIndications:Calc ulus of kidney Take 1 tablet (200 mg total) by mouth 3 (three) times a day in the morning, mid-day and early evening. 10 tablet 06/14/2024 phentermine 15 MG capsule Take 1 capsule (15 mg total) by mouth every morning. SUMAtriptan (IMITREX) 25 MG tablet TAKE 1 TABLET BY MOUTH EVERY 2 TO 4 HOURS NEEDED FOR MIGRAINE HEADACHE. DO NOT EXCEED 8 DOSES IN 24 HOURS. tamsulosin (FLOMAX) 0.4 MG capsule Take 1 capsule (0.4 mg total) by mouth every morning. tamsulosin (FLOMAX) 0.4 MG capsuleIndications:Tr culus of kidney Take 1 capsule (0.4 mg total) by mouth daily. 14 capsule 06/14/2024 traMADol (ULTRAM) 50 MG tablet Take 1 tablet (50 mg total) by mouth 3 times daily (every 8 hours) as needed for severe pain. documented as of this encounter ED Notes * Mak Joy MD - 06/15/2024 12:29 PM EDT History Chief Complaint Patient presents with Abdominal Pain I personally saw the patient and performed a substantive portion of the visit including all aspectsof the medical decision-making. I reviewed the AP's or resident's findings, supervised the management of the patient, made/approved the management plan and take responsibility for the patient management. Further, I agree with the controlled substance prescriptions(s) and/or order(s) as written by the AP, if any. My note reflects my personal findings on my history and exam. HPI: I reviewed any nurses notes, vital signs, home medication list, other history or pertinent diagnostic tests available Associated symptoms and Additional history: 49 year old female who had lithotripsy and left ureteral stent placed yesterday presents with intractable left flank pain despite oral Dilaudid and nausea and hematuria. Additional HPI Past Medical History: Diagnosis Date Anesthesia complication [...] menopausal. 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 Constitutional: General: She is not in acute distress. Appearance: Normal appearance. Eating crackers Cardiovascular: Rate and Rhythm: Tachycardia present. Pulmonary: Effort: Pulmonary effort is normal. Abdominal: General: There is no distension. Palpations: Abdomen is soft. Skin: General: Skin is warm and dry. Neurological: General: No focal deficit present. Mental Status: She is alert and oriented to person, place, and time. ED Course Final diagnoses: None MDM: Number and Complexity of Problems Addressed MDM Detail: Flank pain post ureteral stent and lithotripsy. Abdominal x-ray shows stent in place, checking labs, to consult urology. Amount and Complexity of Data Records reviewed from external provider, facility, or healthcare organization: 06/14/24 urology op note for lithotripsy and left ureteral stent History obtained from other source -see HPI for details: Medical Records Independent Interpretation of Diagnostic study by ED clinician: Radiology Abdominal x-ray shows left ureteral stent Discussion with Other Healthcare Provider: Urology Prescription Medication Management: Administration of Prescription Strength Medication Risk of Complications and/or Morbidity or Mortality of Patient Management Critical Care XR Abdomen 1 view Mak Joy MD 06/15/24 1232 * Elia Kunz PA-C - 06/15/2024 10:57 AM EDT History Chief Complaint Patient presents with Abdominal Pain HPI 49-year-old female With past medical history of asthma, HTN, migraines, anxiety, fibromyalgia, renal stones status post ureteral stenting yesterday, presents complaining of left flank, left abdominalpain, nausea and vomiting. Patient states that she was evaluated here, had a lithotripsy with stentplacement on the left side yesterday, was discharged yesterday afternoon. Patient states that she had worsening pain since 3 PM last night, with nausea and several episodes of dry heaving. Patient states she noticed gushing of urine into her pads, noticed hematuria. Overnight she says she woke up to her heart racing, has had palpitations in the past, attributes this to her discomfort. Took p.o. Dilaudid, did not help with her symptoms so she presented here. Denies fevers, denies any active chest pain or shortness of breath, denies diarrhea, constipation. Past Medical History: Diagnosis Date Anesthesia complication [...] menopausal. 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 HENT: Negative for congestion, ear pain, rhinorrhea, sore throat and trouble swallowing. Respiratory: Negative for cough, chest tightness and shortness of breath. Cardiovascular: Negative for chest pain and palpitations. Gastrointestinal: Positive for abdominal pain, nausea and vomiting. Negative for constipation and diarrhea. Genitourinary: Positive for flank pain and hematuria. Negative for difficulty urinating, dysuria and urgency. Musculoskeletal: Negative for arthralgias, back pain, joint swelling, myalgias, neck pain and neck stiffness. Skin: Negative for color change, rash and wound. Neurological: Negative for dizziness, syncope, light-headedness, numbness and headaches. All other systems negative x 10 except where noted in HPI or above Physical Exam BP (!) 172/100 Pulse (!) 110 Temp 96.9 ??F (36.1 ??C) Resp 18 SpO2 97% Physical Exam Vitals and nursing note reviewed. Constitutional: General: She is not in acute distress. Appearance: Normal appearance. She is not ill-appearing. HENT: Head: Normocephalic and atraumatic. Eyes: Extraocular Movements: Extraocular movements intact. Cardiovascular: Rate and Rhythm: Normal rate and regular rhythm. Pulses: Normal pulses. Heart sounds: Normal heart sounds. No murmur heard. No friction rub. No gallop. Pulmonary: Effort: Pulmonary effort is normal. No respiratory distress. Breath sounds: Normal breath sounds. No wheezing, rhonchi or rales. Abdominal: General: Abdomen is flat. There is no distension. Palpations: Abdomen is soft. Tenderness: There is abdominal tenderness (Generalized). There is left CVA tenderness. There is no right CVA tenderness or guarding. Musculoskeletal: General: Normal range of motion. Cervical back: Neck supple. Skin: General: Skin is warm and dry. Capillary Refill: Capillary refill takes less than 2 seconds. Neurological: Mental Status: She is alert and oriented to person, place, and time. Psychiatric: Mood and Affect: Mood normal. Behavior: Behavior normal. ED Course Final diagnoses: None 49-year-old female with past medical history of asthma, HTN, migraines, anxiety, fibromyalgia, renal stone status post ureteral stenting and lithotripsy yesterday, presents complaining of left flank pain, left abdominal pain, nausea and vomiting. -Patient appears uncomfortable however no acute distress, vital signs stable, afebrile. Physical Martin as above, patient with generalized tenderness throughout the left abdomen, left CVA tenderness. Suspect likely postprocedural pain. Will consider postprocedural complication, stent dislodgment. Willconsider UTI, pyelonephritis. Will treat pain with Toradol, fluids, Zofran. EKG on my interpretation shows sinus tachycardia ventricular rate of 105, no ischemic changes noted, no significant arrhythmia. Suspect tachycardia likely due to pain, patient reports palpitations triggered by discomfort. Urology consulted. Obtaining KUB. -KUB unremarkable, does show stent placement then position is adequate per urology. Noted to have leukocytosis at 18.2, will consider reactive secondary to recent procedure, however will consider infection. Urinalysis does show 5 WBCs and bacteria. Would treat as UTI. Given patient's allergies we will elect for ciprofloxacin. Otherwise no significant metabolic derangement, no evidence of ONDINA. Urology signing off, will follow-up outpatient. Patient still with pain, will give a dose of Dilaudid and initiate ciprofloxacin. -Will discharge with supportive management, course of ciprofloxacin, urology follow-up, discussed strict return precautions MDM: Number and Complexity of Problems Addressed Co-Morbidities Present Affecting Care During Encounter: Asthma, Other - See comments and Hypertension Comorbidities Impact on Encounter: Migraines, anxiety, fibromyalgia, renal stones Amount and Complexity of Data Records reviewed from external provider, facility, or healthcare organization: lithotripsy and left-sided stent placement yesterday History obtained from other source -see HPI for details: Medical Records Independent Interpretation of Diagnostic study by ED clinician: Laboratory Test and Radiology Testing or Treatment considered but not performed: CT imaging, not indicated at this time Discussion with Other Healthcare Provider: Urology Prescription Medication Management: Administration of Prescription Strength Medication Risk of Complications and/or Morbidity or Mortality of Patient Management Social Derterminants of health that impact care: Ineffective Treatments Critical Care XR Abdomen 1 view (Results Pending) Elia Kunz PA-C 06/15/24 1521 Associated attestation - Mak Joy MD - 06/15/2024 6:43 PM EDT I personally saw the patient and performed a substantive portion of the visit including all aspectsof the medical decision-making. I reviewed the AP's or resident's findings, supervised the management of the patient, made/approved the management plan and take responsibility for the patient management. Further, I agree with the controlled substance prescriptions(s) and/or order(s) as written by the AP, if any. My note reflects my personal findings on my history and exam. documented in this encounter Miscellaneous Notes * ED Update - Nirmal Escoto PA-C - 06/15/2024 10:02 AM EDT ED UPDATE: Urology requesting KUB to assess stent placement. * ED Front end provider - Nirmal Escoto PA-C - 06/15/2024 9:41 AM EDT Clinical Impression: Abdominal pain HPI: Patient is a 49-year-old female who presents to the ED for evaluation of left-sided abdominal pain. Patient is status post ureteral stent placement and lithotripsy performed yesterday. Also endorses hematuria. Urology [place] texted him and made aware. Constitutional:Mental status alert and appropriate ENT:Patient speaking in normal voice, handling secretions without problems. Abdomen:Left upper quadrant left lower quadrant abdominal pain with palpation MDM: documented in this encounter Plan of Treatment Upcoming Encounters Date Type Department Care Team (Late st Contact Info) Description 07/31/2024 9:00 AM EDT Office Visit [facility] [place] [facility] [address] [place] [address] Hope Peralta MD [address] [facility] [address] [place] [address] documented as of this encounter Procedures Procedure Name Priority Date/Time Associated Diagnosis Comments URINALYSIS WITH REFLEX TO MICROSCOPIC AND CULTURE STAT 06/15/2024 12:37 PM EDT COMPLETE BLOOD COUNT, WITH DIFFERENTIAL STAT 06/15/2024 10:59 AM EDT COMPREHENSIVE METABOLIC PANEL STAT 06/15/2024 10:59 AM EDT XR ABDOMEN 1 VIEW STAT 06/15/2024 10: 50 AM EDT ECG 12-LEAD STAT 06/15/2024 9:56 AM EDT documented in this encounter Results * (ABNORMAL) Urinalysis with Reflex to Microscopic and Culture (06/15/2024 12:37 PM EDT) Color [place] 06/15/2024 1:22 PM [facility] Clarity Slightly cloudy 06/15/2024 1:22 PM [facility] Specific [place] 1.015 1.003 - 1.030 06/15/2024 1:22 PM [facility] pH 6.0 5.0 - 8.0 06/15/2024 1:22 PM [facility] Leukocyte Esterase Negative Negative 06/15/2024 1:22 PM [facility] Nitrite Unable to perform chemistries due to color of urine(A) Negative 06/15/2024 1:22 PM [facility] Protein Unable to perform chemistries due to color of urine(A) Negative 06/15/2024 1:22 PM [facility] Glucose 0 0 - 99 mg/dL 06/15/2024 1:22 PM [facility] Ketones Negative Negative 06/15/2024 1:22 PM [facility] Blood Large(A) Negative 06/15/2024 1:22 PM [facility] Bilirubin Unable to perform chemistries due to color of urine(A) Negative 06/15/2024 1:22 PM [facility] WBC 5(H) 0 - 4 per hpf 06/15/2024 1:22 PM [facility] RBC >25(H) 0 - 4 per hpf 06/15/2024 1:22 PM [facility] Bacteria Present(A) Absent 06/15/2024 1:22 PM [facility] Squamous Epithelial Cells 1 PER HPF 06/15/2024 1:22 PM [facility] Calcium Oxalate Crystals Present 06/15/2024 1:22 PM [facility] Urine Voided urine specimen / Unknown 06/15/2024 12:37 PM EDT 06/15/2024 1:04 PM EDT Christopher Shimwell PA-C MICROBIOLOGY - GENERAL ORDERABLES [facility] [address] [place] [address], [facility] [address] [place] [address] * (ABNORMAL) Comprehensive Metabolic Panel (06/15/2024 10:59 AM EDT) Glucose 127(H) 65 - 99 mg/dL 06/15/2024 11:57 AM [facility] Comment:Fasting: <100 mg/dL, Non-Fasting: <200 mg/dL (ADA 2004) Blood Urea Nitrogen (BUN) 16 8 - 21 mg/dL 06/15/2024 11:57 AM [facility] Creatinine 0.9 0.4 - 1.1 mg/dL 06/15/2024 11:57 AM [facility] eGFR 77 >59 06/15/2024 11:57 AM [facility] Comment:CKD-EPI (2020) in mL /min/1.73 sq meters. Sodium 142 136 - 145 mmol/L 06/15/2024 11:57 AM [facility] Potassium 3.8 3.4 - 5.3 mmol/L 06/15/2024 11:57 AM [facility] Chloride 106 98 - 107 mmol/L 06/15/2024 11:57 AM [facility] CO2 26 22 - 33 mmol/L 06/15/2024 11:57 AM [facility] Calcium 9.6 8.7 - 10.5 mg/dL 06/15/2024 11:57 AM [facility] Alkaline Phosphatase 148(H) 32 - 122 U/L 06/15/2024 11:57 AM [facility] Aspartate Aminotrans (AST) 24 10 - 50 U/L 06/15/2024 11:57 AM [facility] Alanine Aminotrans (ALT) 48 10 - 50 U/L 06/15/2024 11:57 AM [facility] Bilirubin, Total 0.5 0.2 - 1.0 mg/dL 06/15/2024 11:57 AM [facility] Protein, Total 7.5 6.3 - 8.3 g/dL 06/15/2024 11:57 AM [facility] Albumin 4.2 3.5 - 5.0 g/dL 06/15/2024 11:[address] [facility] BUN/Creatinine Ratio 18 10.0 - 25.0 Ratio 06/15/2024 11:[address] [facility] Globulin 3.3 1.5 - 3.9 g/dL 06/15/2024 11:57 AM [facility] Albumin/Globulin Ratio 1.3 1.0 - 3.0 Ratio 06/15/2024 11:[address] [facility] Anion Gap 10 7 - 17 06/15/2024 11:[address] [facility] Blood Blood specimen / Unknown 06/15/2024 10:59 AM EDT 06/15/2024 11:21 AM EDT Nirmal Escoto PA-C LAB BLOOD [place] [address] [address], [address] [address] * (ABNORMAL) Complete Blood Count, with Differential (06/15/2024 10:59 AM EDT) White Blood Cell Count 18.2(H) 4.0 - 11.0 Thou/uL 06/15/2024 12:15 PM [facility] Platelet Count 255 150 - 450 Thou/uL 06/15/2024 12:15 PM [facility] Hemoglobin 13.8 11.7 - 15.7 g/dL 06/15/2024 12:15 PM [facility] Hematocrit 41.8 35.0 - 47.0 % 06/15/2024 12:15 PM [facility] Red Blood Cell Count 4.80 4.00 - 5.40 Mil/uL 06/15/2024 12:15 PM [facility] MCV 87 80 - 100 fL 06/15/2024 12:15 PM [facility] MCH 28.8 27.0 - 31.0 pg 06/15/2024 12:15 PM [facility] MCHC 33.0 30.0 - 36.0 g/dL 06/15/2024 12:15 PM [facility] RDW 12.6 11.5 - 14.5 % 06/15/2024 12:[address] [facility] MPV 10.7 7.5 - 12.5 fL 06/15/2024 12:[address] [facility] Neutrophils Man 88 % 12:[address] [facility] Comment:Hypersegmented neutr ophils present. Lymphocytes Man 8 % 12:[address] [facility] Monocytes Man 4 % 06/15/2024 12:[address] [facility] Abs Neutrophils Count (ANC) 16.0(H) 2.0 - 7.5 Thou/uL 06/15/2024 12:[address] [facility] Abs Lymphocytes Man 1.5 1.5 - 4.5 Thou/uL 06/15/2024 12:[address] [facility] Abs Monocytes Man 0.7 0.2 - 1.5 Thou/uL 06/15/2024 12:[address] [facility] Normochromic Present 06/15/2024 12:[address] [facility] Normocytic Present 06/15/2024 12:[address] [facility] Blood Blood specimen / Unknown 06/15/2024 10:59 AM EDT 06/15/2024 11:21 AM EDT Nirmal Escoto PA-C LAB BLOOD [facility] Organization Address City/State/ZIP Co de Phone Number [address] [address], [address] [address] * XR Abdomen 1 view (06/15/2024 10:50 AM EDT) Anatomical Region Laterality Modality Abdomen Computed Radiogr aphy 06/15/2024 10:4 0 AM EDT Impressions 06/15/2024 11:05 AM EDT 1. A left ureteral stent is identified. 2. Nonobstructive bowel gas pattern. Narrative 06/15/2024 11:05 AM EDT KUB COMPARISON: None HISTORY: Evaluate for ureteral stent placement FINDINGS: A left ureteral stent is noted. The proximal loop projects over the medial left renal silhouette and the distal loop projects over the midline lower pelvis. No dilated bowel loops are seen. There is no evidence of free air in the abdomen. The abdominal soft tissues are unremarkable. Mild degenerative changes are noted in the lumbar spine. Procedure Note Redd Webster MD - 06/15/2024 KUB COMPARISON: None HISTORY: Evaluate for ureteral stent placement FINDINGS: A left ureteral stent is noted. The proximal loop projects over the medial left renal silhouette and the distal loop projects over the midline lower pelvis. No dilated bowel loops are seen. There is no evidence of free air in the abdomen. The abdominal soft tissues are unremarkable. Mild degenerative changes are noted in the lumbar spine. IMPRESSION: 1. A left ureteral stent is identified. 2. Nonobstructive bowel gas pattern. Nirmal Escoto PA-C IMG DIAGNOSTIC IMAGING ORDERABLES * ECG 12 lead (06/15/2024 9:56 AM EDT) Ventricular rate [address] [facility] Atrial rate 105 BPM EKG [facility] P-R interval 136 ms EKG [facility] QRS duration 84 ms EKG [facility] Q-T interval 332 ms EKG [facility] QTC calculation (Bazett) [address] [facility] P axis 47 degrees EKG [facility] R axis 16 degrees EKG [facility] T axis -3 degrees EKG [facility] 06/15/2024 9:56 AM EDT N[address] EKG [facility] - 06/15/2024 10:10 AM EDT Sinus tachycardia Otherwise normal ECG No previous ECGs available Confirmed by MD Spivey Sneha ([id number]) on 06/15/2024 10:10:35 AM Procedure Note Jeri Spivey MD - 06/15/2024 Sinus tachycardia Otherwise normal ECG No previous ECGs available Confirmed by MD Spivey Sneha ([id number]) on 06/15/2024 10:10:35 AM Nirmal Escoto PA-C ECG ORDERABLES EKG [facility] documented in this encounter Visit Diagnoses Diagnosis Ureteral stent present- Primary UTI (urinary tract infection) Urinary tract infection, site not specified documented in this encounter Administered Medications Inactive Administered Medications - up to 1 most recent administrations Medication Order MAR Action Action Date Dose Rate Site sodium chloride 0.9 % (NS) bolus 1,000 mL, Intravenous, Administer over 1 Hours, Once, On Caroline 06/15/24 at 1109, For 1 dose New Bag 06/15/2024 11:30 AM EDT 1,000 mL 1000 mL/hr ciprofloxacin (CIPRO) tablet 500 mg 500 mg, Oral, Once, On Caroline 06/15/24 at 1444, For 1 dose, Administer at least 2 hours before or 6 hours after antacids or other products containing calcium, iron, or zinc. *Hold Enteral Nutrition at least 2 hours before and 4 hours after dose* , All antimicrobials used at [facility] require an indication. Please complete the following documentation. Bacterial Infection Suspected, Type of Therapy: New Therapy, Indication: Urinary Tract Infection Given 06/15/2024 2:50 PM EDT 500 mg HYDROmorphone (DILAUDID) injection 0.5 mg 0.5 mg, Intravenous, Once, On Caroline 06/15/24 at 1444, For 1 dose Given 06/15/2024 2:50 PM EDT 0.5 mg ketorolac (TORADOL) injection 15 mg 15 mg, Intravenous, Once, On Caroline 06/15/24 at 1109, For 1 dose, IV push If ordered IV Push: administer undiluted over 2 minutes. Given 06/15/2024 11:29 AM EDT 15 mg ondansetron (ZOFRAN) injection 4 mg 4 mg, Intravenous, Once, On Caroline 06/15/24 at 1109, For 1 dose Given 06/15/2024 11:28 AM EDT 4 mg documented in this encounter Active and Recently Administered Medications Times are shown in EDT. Scheduled Medication Order 06/13/2024 06/14/2024 06/15/2024 sodium chloride 0.9 % (NS) bolus (COMPLETED) 1,000 mL, Intravenous, Administer over 1 Hours, Once, On Caroline 06/15/24 at 1109, For 1 dose 1130 (New Bag - Prov ider: Samantha Rosales RN)1230 (Stopped - Provider: Samantha Rosales RN) ciprofloxacin (CIPRO) tablet 500 mg (COMPLETED) 500 mg, Oral, Once, On Caroline 06/15/24 at 1444, For 1 dose, Administer at least 2 hours before or 6 hours after antacids or other products containing calcium, iron, or zinc. *Hold Enteral Nutrition at least 2 hours before and 4 hours after dose* , All antimicrobials used at [facility] require an indication. Please complete the following documentation. Bacterial Infection Suspected, Type of Therapy: New Therapy, Indication: Urinary Tract Infection 1450 (Given - Provid er: Samantha Rosales RN) HYDROmorphone (DILAUDID) injection 0.5 mg (COMPLETED) 0.5 mg, Intravenous, Once, On Caroline 06/15/24 at 1444, For 1 dose 1450 (Given - Provid er: Samantha Rosales RN) ketorolac (TORADOL) injection 15 mg (COMPLETED) 15 mg, Intravenous, Once, On Caroline 06/15/24 at 1109, For 1 dose, IV push If ordered IV Push: administer undiluted over 2 minutes. 1129 (Given - Provid er: Samantha Rosales RN) ondansetron (ZOFRAN) injection 4 mg (COMPLETED) 4 mg, Intravenous, Once, On Caroline 06/15/24 at 1109, For 1 dose 1128 (Given - Provid er: Samantha Rosales RN) documented in this encounter Care Teams Web Assistant Relationship Specialty Start Date End Date Jane Dao MD [address] [place] [id number] (work) PCP - General General Medicine 05/31/23 documented as of this encounter
--- OUTSIDE RECORDS SUMMARY | 2024-06-16 15:41 | XMS_ITS | Encounter Summary ---
Author Organization [facility] Address [address] [place] [address] Care Team Providers Care Dramatic Art Teacher Name Role Phone Jane Dao MD Primary Care Provider [phone] Encounter Details Date Type Department Care Team (Latest Contact Info) Description 06/08/2024 Travel Social History Tobacco Use Types Packs/Day [...] Office Visit [facility] [place] [address] [place] [phone] Hope Peralta MD [address] [facility] [address] [place] [address] documented as of this encounter Visit Diagnoses Not on filedocumented in this encounter Care Teams Dramatic Art Teacher Relationship Specialty Start Date End Date Jane Dao MD [address] [place] [address] PCP - General General Medicine 05/31/23 documented as of this encounter
--- OUTSIDE RECORDS SUMMARY | 2024-06-16 15:41 | XMS_ITS ---
Demographics Address [address] [place] [address] Mobile Email Address Preferred Language en Marital Status Unknown Jain Affiliation Unknown Race Unknown Ethnic Group or Author Organization Gómez Liu MD Address [address] [id number] Care Team Providers Care Legend Maker Name Role Phone Jane Dao Primary Care Provider REASON FOR VISIT Phentermine PA Renewal Encounters Encounter Location Date Provider Diagnosis Gómez Liu MD [address] [place] [address] [place] [phone] 05/03/2024 Jane Dao Plan Of Treatment Next Appt Details Provider Name:Jane Dao , 07/31/2024 08:30:00 AM, [address] [place] [address], [place] [address], [place], [place], [phone], Progress Notes * Patti SULLIVANDOB:[birth year] (49 yo F)Acc No.[id number]:05/03/2024 Patient:?Patti SULLIVAN :1975???Age:49 Y???Sex:Female Address:[address], [place] [address] * true * Date:? Generated for Printi ng/Fajuan fg/eTransmitting on:?06/16/2024 03:21 PM EDT
--- OUTSIDE RECORDS SUMMARY | 2024-06-16 15:41 | XMS_ITS | Encounter Summary ---
Author Organization [facility] Address [address] [place] [address] Care Team Providers Care Ore Miner Blasting Name Role Phone Jane aDo MD Primary Care Provider [phone] Encounter Details Date Type Department Care Team (Late Contact Info) Description 06/07/2024 2:10 PM EST Ancillary Procedure [facility] Radiology [address] [place] [address] Provider, File Room Social History Tobacco Use Types Packs/Day Years [...] Department Care Team (Late Contact Info) Description 07/31/2024 9:00 AM EDT Office Visit [facility] [place] [address] [place] [phone] Hope Perlata MD 85 [facility] [address] [place] [address] documented as of this encounter Procedures Procedure Name Priority Date/Time Associated Diagnosis Comments ROSALVA ARCHIVE FOR REFERENCE ONLY CT Routine 06/07/2024 2:10 PM EST documented in this encounter Results * ROSALVA Archive for reference only CT (06/07/2024 2:10 PM EST) Narrative TAMARA - 06/07/2024 2:05 PM EST This order has been auto-finalized and does not contain a result. File Room Provider IMG DIGITIZE FILMS TAMARA [phone] documented in this encounter Visit Diagnoses Not on filedocumented in this encounter Care Teams Ore Miner Blasting Relationship Specialty Start Date End Date Jane Dao MD [address] [place] [address] PCP - General General Medicine 05/31/23 documented as of this encounter
--- OUTSIDE RECORDS SUMMARY | 2024-06-16 15:41 | XMS_ITS | Encounter Summary ---
Author Organization [facility] Address [address] [place] [address] Care Team Providers Care Sheet Hanger Name Role Phone Jane Dao MD Primary Care Provider [phone] Reason for Visit * Reason Comments Follow-up Encounter Details Date Type Department Care Team (Late st Contact Info) Description 12/27/2023 9:00 AM EDT Office Visit [facility] [address] [place] [address] Hope Peralta MD [address] [place] [address] Gallbladder polyp (Primary Dx); Abnormal gall bladder diagnostic imaging Social History Tobacco Use Types Packs/Day Years [...] AM EDT Temperature - - Respiratory Rate - - Oxygen Saturation 98% 12/27/2023 8:53 AM EDT Inhaled Oxygen Concentration - - Weight 91.6 kg (202 lb) 12/27/2023 8:53 AM EDT Height 157.5 cm (5' 2 ) 12/27/2023 8:53 AM EDT Body Mass Index 36.95 12/27/2023 8:53 AM EDT documented in this encounter Progress Notes * Hope Peralta MD - 12/27/2023 9:01 AM EDT Images from the original note were not included. Complex General Surgical Oncology & Hepatopancreatobiliary Surgery Assessment & Plan: Encounter Diagnosis and Associated Orders Diagnoses and all orders for this visit: Gallbladder polyp - US Abdomen-Limited; Future - US Abdomen-Limited Abnormal gall bladder diagnostic imaging Other orders - propranolol (INDERAL) 10 MG tablet; Take 1 tablet (10 mg total) by mouth 3 (three) times a day. 48 y.o. female with a significant family history of malignancy and approximately 9-month history ofepigastric and right upper quadrant abdominal pain. She has undergone 2 ultrasounds 1 of which is read as having a 3 mm gallbladder polyp and the other is read as having adenomyomatosis. She now has had additional imaging that demonstrates cholelithiasis. We discussed that gallbladder polyps can bepremalignant lesions however polyps less than 3 mm are very low risk and could be surveilled with annual ultrasounds. We discussed that adenomyomatosis is not a premalignant lesion and does not require any intervention. We discussed that cholelithiasis can cause pain but her pain does not appear wong postprandial in nature. We reviewed that her symptoms are not classic for gallbladder disease ordysfunction given that they are not related to food. It is challenging to know how to proceed given the conflicting imaging studies however the lack of persistence of any specific finding certainly is encouraging that there is nothing progressive in nature. With that in mind, we will obtain repeat imaging in 6 months with an ultrasound at [facility] so they have the most recent ultrasound to compare to. Will plan to see her back in the office after her next ultrasound. She understands to call our office with any questions or concerns in the interim. I spent 45 minutes today in patient care including record review, direct patient care, communication with other caregivers and clinical documentation. Greater than 50% of the visit was spent counseling the patient regarding the diagnosis and treatment options. Subjective: Patti Drake is a 48 y.o. female who presents in follow-up regarding gallbladder problems. From initial visit: Patient is referred for a gallbladder polyp. She historically has been told that she has a gene that may predispose her to cancer so she has been undergoing annual upper endoscopies and colonoscopiesevery 3 years. She historically has had 7 polyps removed from her stomach. She has been told that she has polyps in other locations. This past fall, she had some epigastric pain radiating to her right upper quadrant. This has been persistent since at least February though it does come and go. She believes that this is unrelated to exercise, eating, or bowel function. As a part of the workup of this pain, she did undergo a right upper quadrant ultrasound which raise concern for 3 mm gallbladder polyp. She was subsequently referred to general surgery who ordered a repeat ultrasound at the 6-month timothy and placed a referral to our office. She is completed her repeat ultrasound at [facility]. I was able to review the images on her phone. Her original ultrasound is significant for 3 mm polyp however repeat ultrasound is read as adenomyomatosis (on my review I appreciate this is consistent witha polyp as well). We do not have a copy of these images or read for our records at this time. She reports that she has never had an MRI of her abdomen. She believes that in the past she has had a CT scan of her abdomen performed at [facility]. Of note, the patient does have a significant family history of malignancy. She is very concerned about the possibility of developing malignancy herself. Since her last visit, she was admitted at [facility]. She was at work when she felt lightheaded and then developed right-sided weakness. She subsequently developed right-sided pressure on her head/brain and associated emesis. She underwent a battery of tests and ultimately was diagnosed with a complex migraine. With regard to her abdominal discomfort, she still notes having symptoms. She is unable to nail down how frequently these are happening but it is not happening daily but is happening more than once per month. She has undergone imaging studies while at [facility]. The following portions of the patient's history were reviewed and updated as appropriate: allergies, current medications, past family history, past medical history, past social history and past surgical history. Past Medical History: Diagnosis Date Anxiety Asthma Cancer (HCC) 1977 on back Colon polyp Family history of cancer Fibromyalgia Genetic testing negative BRCA Hypertension Kidney stones Migraine Polyp of stomach Transfusion of blood product refused for gnosticist reason Vertigo Past Surgical History: Procedure Laterality Date COLONOSCOPY 2021 ESOPHAGOGASTRODUODENOSCOPY 2023 GANGLION CYST EXCISION Left PARTIAL HYSTERECTOMY transvaginal SKIN LESION EXCISION 1977 canceroous on back URETHRAL SLING HYDROcodone-acetaminophen (VICODIN) 5-300 MG per tablet Take 1 tablet by mouth 4 times daily (every6 hours) as needed for severe pain. HYDROmorphone (DILAUDID) 2 MG tablet Take 1 tablet (2 mg total) by mouth 4 times daily (every 6 hours) as needed for severe pain. LORazepam (ATIVAN) 0.5 MG tablet Take 2 tablets (1 mg total) by mouth 1 time if needed (for MRI premedication). losartan (COZAAR) 50 MG tablet Take 1 tablet (50 mg total) by mouth daily. meclizine (ANTIVERT) 12.5 MG tablet Take 1 tablet (12.5 mg total) by mouth 3 (three) times a day asneeded for dizziness. ondansetron (ZOFRAN) 4 MG tablet Take 1 tablet (4 mg total) by mouth 3 times daily (every 8 hours) as needed for nausea or vomiting. propranolol (INDERAL) 10 MG tablet Take 1 tablet (10 mg total) by mouth 3 (three) times a day. tamsulosin (FLOMAX) 0.4 MG capsule Take 1 capsule (0.4 mg total) by mouth daily. traMADol (ULTRAM) 50 MG tablet Take 1 tablet (50 mg total) by mouth 3 times daily (every 8 hours) as needed for severe pain. aspirin enteric coated (ECOTRIN LOW STRENGTH) 81 MG EC tablet Take 1 tablet (81 mg total) by mouth daily. diphenhydrAMINE (BENADRYL) 50 MG tablet Take 1 tablet (50 mg total) by mouth once. Take 1 tablet (50 mg) 1 hours prior to procedure with contrast. ferrous sulfate 325 (65 FE) MG tablet Take 1 tablet (325 mg total) by mouth daily. Take 2 hours before or 4 hours after acid reducers. magnesium 30 MG tablet Take 1 tablet (30 mg total) by mouth 2 (two) times a day. methylPREDNISolone (MEDROL) 32 MG tablet Take 1 tablet (32 mg) 12 hours prior to procedure with contrast and 1 tablet (32 mg) 2 hours prior to procedure with contrast. Multiple Vitamins-Minerals (b cndzsbt-D-R-zinc) tablet Take 1 tablet by mouth daily. multivitamin Tab tablet Take 1 tablet by mouth daily. Family History Problem Relation Age of Onset [...] Never Smokeless tobacco: Never Vaping Use Vaping Use: Never used Substance Use Topics Alcohol use: Yes Alcohol/week: 1.0 standard drink of alcohol Types: 1 Glasses of wine per week Comment: not daily Drug use: Never Review of Systems Review of Systems Constitutional: Negative for activity change, appetite change, chills, diaphoresis, fatigue, fever and unexpected weight change. HENT: Negative for hearing loss and trouble swallowing. Eyes: Negative for visual disturbance. Respiratory: Negative for cough, shortness of breath and wheezing. Cardiovascular: Negative for chest pain and leg swelling. Gastrointestinal: Positive for abdominal pain. Negative for abdominal distention, anal bleeding, blood in stool, constipation, diarrhea, nausea, rectal pain and vomiting. Endocrine: Negative for cold intolerance and heat intolerance. Genitourinary: Negative for difficulty urinating, dysuria, frequency, hematuria and urgency. Musculoskeletal: Negative for arthralgias and back pain. Skin: Negative for color change, rash and wound. Allergic/Immunologic: Negative for immunocompromised state. Neurological: Negative for dizziness, tremors and numbness. Hematological: Negative for adenopathy. Does not bruise/bleed easily. Psychiatric/Behavioral: Negative for confusion. The patient is nervous/anxious. Objective: BP 115/64 (BP Location: Left arm, Patient Position: Sitting, Cuff Size: Medium (Standard)) Pulse 85 Ht 1.575 m (5' 2 ) Wt 91.6 kg (202 lb) SpO2 98% BMI 36.95 kg/m?? Physical Exam Vitals and nursing note reviewed. Constitutional: General: She is not in acute distress. Appearance: She is well-developed. She is not ill-appearing or toxic-appearing. HENT: Head: Normocephalic and atraumatic. Eyes: General: No scleral icterus. Cardiovascular: Rate and Rhythm: Normal rate. Pulmonary: Effort: Pulmonary effort is normal. No respiratory distress. Abdominal: General: Abdomen is protuberant. There is no distension. Palpations: There is no shifting dullness, fluid wave or mass. Tenderness: There is abdominal tenderness in the epigastric area and left upper quadrant. There is no guarding or rebound. Negative signs include Stephen's sign. Hernia: There is no hernia in the ventral area. Musculoskeletal: General: No deformity. Skin: General: Skin is warm and dry. Capillary Refill: Capillary refill takes less than 2 seconds. Coloration: Skin is not jaundiced or pale. Neurological: Mental Status: She is alert and oriented to person, place, and time. Psychiatric: Behavior: Behavior normal. Laboratory Studies: Laboratory studies were personally reviewed. Scanned in record. Imaging: Ultrasound images were personally reviewed; radiology reads are included below. 11/08/23 02/15/23 documented in this encounter Miscellaneous Notes * Addendum Note - Corky Davis RN - 06/13/2024 12:38 PM EDTAddended by: CORKY DAVIS on: 06/13/2024 12:38 PM Modules accepted: Orders documented in this encounter Plan of Treatment Upcoming Encounters Date Type Department Care Team (Late st Contact Info) Description 07/31/2024 9:00 AM EDT Office Visit [facility] [address] [place] [phone] Hope Peralta MD [facility] [address] [place] [address] documented as of this encounter Visit Diagnoses Diagnosis Gallbladder polyp- Primary Cholesterolosis of gallbladder Abnormal gall bladder diagnostic imaging documented in this encounter Care Teams Sheet Hanger Relationship Specialty Start Date End Date Jane Dao MD [address] [place] [address] PCP - General General Medicine 05/31/23 documented as of this encounter
--- OUTSIDE RECORDS SUMMARY | 2024-06-16 15:41 | XMS_ITS | Encounter Summary ---
Author Organization [facility] Address [address] [place] [address] Care Team Providers Care Image Consultant Name Role Phone Jane Dao MD Primary Care Provider [phone] Reason for Visit * Reason Comments Other Encounter Details Date Type Department Care Team (Late st Contact Info) Description 05/23/2024 Telephone [facility] [place] [phone] Violet Suggs APRN [address] [place] [address] Other Social History Tobacco Use Types Packs/Day [...] encounter Miscellaneous Notes * Telephone Encounter - Violet Suggs APRN - 06/01/2024 5:26 PM EST Reviewed results with the patient. She will continue Flomax and pain meds. She will wait for her virtual with Dr. García to discuss surgical options. * Telephone Encounter - Silvina Joy - 05/30/2024 2:49 PM EST Patient does not require a prior authorization for CT scans per [facility] Federal Plan Call ref. # [id number] Called and spoke to [facility] ([phone]) and informed her of this information. Called [...] Visit [facility] [place] [address] [facility] [address] [place] [phone] Hope Peralta MD [address] [facility] [address] [place] [address] documented as of this encounter Visit Diagnoses Not on filedocumented in this encounter Care Teams Image Consultant Relationship Specialty Start Date End Date Jane Dao MD [address] [place] [address] PCP - General General Medicine 05/31/23 documented as of this encounter
--- OUTSIDE RECORDS SUMMARY | 2024-06-16 15:41 | XMS_ITS | Encounter Summary ---
Author Organization [facility] Address [address] [place] [address] Care Team Providers Care Home Designer Name Role Phone Jane Dao MD Primary Care Provider [phone] Reason for Referral * Diagnostic Imaging (Emergency) - Authorized Specialty Diagnoses / Procedures Referred By Contac t Referred To Contact Diagnoses Calculus of kidney Left flank pain Procedures CT Stone study w/o contrast Violet Suggs APRN [address] [place] [address] Referral ID Status Reason Start Date Expiration Date V isits Requested Visits Authorized [id number] Authorized 05/23/2024 04/04/2025 1 999 Reason for Visit * Reason Comments New Patient Calculus of Kidney Encounter Details Date Type Department Care Team (Late st Contact Info) Description 05/23/2024 9:00 AM EST Office Visit [facility] Urology [address] [place] [phone] Violet Suggs APRN [address] [place] [address] Calculus of kidney (Primary Dx); Left flank [...] this encounter Progress Notes * Violet Suggs, LITHOGRAPH DESIGNER - 05/23/2024 9:00 AM EST Images from the original note were not included. Assessment & Plan Patti Drake is a 49 y.o. female presenting in urological consultation for nephrolithiasis Patient presenting today for a second opinion on her kidney stones. She has had kidney stones [id number]. She states she has had multiple ESWL's [...] Leukocyte Esterase, UA Negative Negative Lot Number [id number] Automotive Instructor Pass Pass Communication barriers and lifestyle preferences [...] kidney stones. She has had kidney stones [id number]. She states she has had multiple ESWL's and ureteroscopy with stent placements. She states shehad 7 procedures done within 2 years. She gets kidney stones in both kidneys. She is a patient of Dr. Sang Neal with [facility]. She states her stones are calcium [...] stomach Transfusion of blood product refused for jehovah's witness reason Vertigo PSH: Past Surgical History: Procedure [...] 2 tablet, Rfl: 0 Multiple Vitamins-Minerals (b fbsveud-O-Q-zinc) tablet, Take 1 tablet by mouth daily., [...] Leukocyte Esterase, UA Negative Negative Lot Number [id number] Automotive Instructor Pass Pass IMAGING: CT Scan 12/18/2021 Vitals: [...] [facility] [place] [address] [facility] [address] [place] [phone] Hoep Peralta MD [address] [facility] [address] [place], [place] [phone] Scheduled Orders Name Type Priority Associated Diagnoses [...] (05/23/2024 10:34 AM EST) Color YELLOW YELLOW [facility] [employer] Clarity CLEAR CLEAR [employer] Specific [place] 1.019 1.001 - 1.035 [employer] pH 6.5 5.0 - 8.0 [employer] Glucose, Urine, Random NEGATIVE NEGATIVE [employer] Bilirubin NEGATIVE NEGATIVE [employer] Ketones NEGATIVE NEGATIVE [employer] Blood 2+(A) NEGATIVE [facility] [place] Protein NEGATIVE NEGATIVE [employer] Nitrite NEGATIVE NEGATIVE [employer] Leukocyte Esterase NEGATIVE NEGATIVE [employer] WBC NONE SEEN < OR = 5 /HPF [employer] RBC 10-20(A) < OR = 2 /HPF [employer] Squamous Epithelial Cells NONE SEEN < OR = 5 /HPF [employer] Bacteria NONE SEEN NONE SEEN /HPF [employer] Hyaline Cast NONE SEEN NONE SEEN /LPF [employer] Note [employer] Comment: This urine was analyzed for the presence of WBC, RBC, bacteria, casts, and other formed elements. Only those elements seen were reported. X-Specimen 16 Urine specimen obtained by clean catch procedure / Unknown 05/23/2024 10:34 AM EST 05/24/2024 3:23 AM EST Violet Suggs APRN URINE ORDERABLES [employer] [address] [phone] * (ABNORMAL) POCT Urinalysis Dipstick, Automated (05/23/2024 [...] Leukocyte Esterase, UA Negative Negative Lot Number [id number] Automotive Instructor Pass Pass Urine 05/23/2024 8:58 AM EST Violet Suggs LITHOGRAPH DESIGNER POINT OF CARE TE ST ORDERABLES documented in this encounter Visit Diagnoses Diagnosis Calculus of kidney- Primary Left flank pain Abdominal pain, unspecified site Microscopic hematuria documented in this encounter Care Teams Home Designer Relationship Specialty Start Date End Date Jane Dao MD [address] [place] [phone] PCP - General General Medicine 05/31/23 documented as of this encounter
--- OUTSIDE RECORDS SUMMARY | 2024-06-16 15:41 | XMS_ITS ---
Author Organization Gómez Liu MD Address [address] [id number] Care Team Providers Care [place] Consultant Name Role Phone Jane Dao Primary Care Provider [phone] Allergies Allergen (clinical drug ingredient) Drug/Non [...] Unknown Allergy Act leti almond allergenic extract [place] (Diagnostic) Unknown Drug Allergy Active Shellfish (FN) Shellfish-derived Products anaphylaxis Drug Allergy Active Yeast-related Products Unknown Drug Allergy Active Chickpe[place] Unknown Allergy Active REASON FOR VISIT New Refill Request Medications Medication SIG (Take, Route, Frequency, Duration) Notes Start Date End Date Status Losartan Potassium 50 MG TAKE 1 TABLET B Y MOUTH DAILY for 90 Active Phentermine HCl 15 MG 1 capsule Oral Onc e a day for 30 days 06/14/2024 07/13/2024 Active Encounters Encounter Location Date Provider Diagnosis Gómez Liu MD [address] [id number] 06/13/2024 Jane Dao Hypertensive chronic kidney disease with stage 1 through stage 4 chronic kidney disease, or unspecified chronic kidney disease I12.9 Assessments Encounter Date Diagnosis (ICD Code) Assessment Notes Treatment Notes Treatment Clinical Notes Section Notes 06/13/2024 Hypertensive chronic kidney disease with stage 1 through stage 4 chronic kidney disease, or unspecified chronic kidney disease (ICD-10 - I12.9) Plan Of Treatment Medication Medication Name Sig Start Date Stop Date Notes Losartan Potassium 50 MG TAKE 1 TABLET B Y MOUTH DAILY for 90 Phentermine HCl 15 MG 1 capsule Oral Onc e a day for 30 days 06/14/2024 07/13/2024 Next Appt Details Provider Name:Jane Dao , 07/31/2024 08:30:00 AM, [address] [place] [address], [place] [address], [place], [place], [phone], Progress Notes * Patti SULLIVANDOB:[birth year] (49 yo F)Acc No.[id number]:06/13/2024 Patient:?Patti SULLIVAN :1975???Age:49 Y???Sex:Female Address:[address] [place] [id number] * Refills? Refill Phentermine HCl Capsule, 15 MG, Oral, 30 Capsule, 1 capsule, Once a day, 30 days, Refills=0 Refill Losartan Potassium Tablet, 50 MG, 90 Tablet, TAKE 1 TABLET BY MOUTH DAILY, 90, Refills=0 Subjective: * Chief Complaints: * ???New [...] Oxygen sat %:98% * Physical Examination:? Assessment: * Assessment: 1.?Hypertensive chronic kidn ey disease with stage 1 through stage 4 chronic kidney disease, or unspecified chronic kidney disease - I12.9??? Plan: * Treatment: 2.?Others? Refill Phentermine HCl Capsule, 15 MG, 1 capsule, Oral, Once a day, 30 days, 30 Capsule, Refills 0.?? * Procedure Codes:? * true * Date:? Generated for Svitlana castrejon/Beatriz/eTransmitting on:?06/16/2024 03:21 PM EDT
--- OUTSIDE RECORDS SUMMARY | 2024-06-16 15:41 | XMS_ITS | Encounter Summary ---
Author Organization [facility] Address [address] [place] [address] Care Team Providers Care Fibre Optic Cable Splicer Name Role Phone Jane Dao MD Primary Care Provider [phone] Encounter Details Date Type Department Care Team (Late Contact Info) Description 06/07/2024 Orders Only [facility] Urology [address] [place] [phone] Provider, Liyah, [address] [place] [id number] Social History Tobacco Use Types Packs/Day Years [...] EN[facility] [facility] [address] [place] [address] Hope Peralta MD [address] [facility] [address] [place] [address] documented as of this encounter Procedures Procedure Name Priority Date/Time Associated Diagnosis Comments CT KIDNEY/URETER/BLADDER W/O CONTRAST Routine 06/07/2024 1:[address] ABDOMEN+PELVIS W W/O CONTRAST Routine 06/07/2024 1:39 PM EST documented in this encounter Results * CT Kidney/ureter/bladder w/o contrast (06/07/2024 1:42 PM EST) Anatomical Region Laterality Modality Abdomen, Pelvis Computed Tomogra phy External Provider MD SEE CT ORDERABLES * CT Abdomen+pelvis w w/o contrast (06/07/2024 1:39 PM EST) Anatomical Region Laterality Modality Abdomen, Pelvis Computed Tomogra phy External Provider MD SEE CT ORDERABLES documented in this encounter Visit Diagnoses Not on filedocumented in this encounter Care Teams Fibre Optic Cable Splicer Relationship Specialty Start Date End Date Jane Dao MD [address] [place] [id number] PCP - General General Medicine 05/31/23 documented as of this encounter
--- OUTSIDE RECORDS SUMMARY | 2024-06-16 15:41 | XMS_ITS | Encounter Summary ---
Author Organization [facility] Address [address] [place] [address] Care Team Providers Care Chemical Compounder Name Role Phone Jane Dao MD Primary Care Provider [phone] Reason for Visit * Auth/Cert Specialty Diagnoses / Procedures Referred By Evangelist t Referred To Contact Diagnoses Renal calculi Hydronephrosis with urinary obstruction due to ureteral calculus Procedures AR CYSTO/URETERO W/LITHOTRIPSY &INDWELL STENT INSRT CYSTOSCOPY RETROGRADE URETEROSCOPY LITHOTRIPSY STENT INSERTION/left Referral ID Status Reason Start Date Expiration Date Visits Re quested Visits Authorized [id number] 1 1 Encounter Details Date Type Department Care Team (Late st Contact Info) Description 06/14/2024 1:45 PM EDT - 06/14/2024 3:15 PM EDT Surgery [facility] Perioperative Surgical Services [address] [place] [address] Casey García MD [address] [place] [address] [address] [place] [address] CYSTOSCOPY RETROGRADE URETEROSCOPY LASER LITHOTRIPSY STENT INSERTION/left Social History Tobacco Use Types Packs/Day Years [...] Sign Reading Time Taken Comments Blood Pressure 113/72 06/14/2024 3:15 PM EDT Pulse 82 06/14/2024 3:15 PM EDT Temperature 36.5 ??C (97.7 ??F) 06/14/2024 3:00 PM ED T Respiratory Rate 18 06/14/2024 3:15 PM EDT Oxygen Saturation 96% 06/14/2024 3:15 PM EDT Inhaled Oxygen Concentration - - Weight 88.5 kg (195 lb) 06/08/2024 2:23 PM EST Height 157.5 cm (5' 2 ) 06/08/2024 2:23 PM EST Body Mass Index 35.67 06/08/2024 2:23 PM EST documented in this encounter Discharge Instructions * Discharge Instr - Other Orders* Wiliam Byrne MD - 06/14/2024 3:11 PM EDT Post-operative Instructions: Ureteroscopy, stone removal, stent placement You are being discharged with a ureteral stent in place. A stent is a narrow soft plastic tube placed in the ureter between the kidney and the bladder that relieves or prevents obstruction of the kidney. Stents are commonly placed to prevent obstruction while the ureter heals after a stone procedure or to relieve blockage from a stone in the setting of severe pain or infection. The lower end of the stent may irritate the lining of the bladder causing urinary frequency, urgency, mild incontinence, and blood in the urine. The stent allows pressure from the bladder to transmitto the kidney. You may feel flank pain with a full bladder and with voiding. This is caused by stretching of kidney by the transmitted bladder pressure and usually resolves after a few moments. Symptoms may be minimized by voiding more frequently in small amounts. The stent is not permanent. ALL STENTS MUST BE REMOVED or exchanged every 10-12 weeks if you are planned for further procedures. Your stent was left on a string and taped to your pubis. Careful not to accidentally pull on this string until your scheduled appointment. Please take the pain medications prescribed to you as needed for pain/stent symptoms. Take tylenol and/or motrin as needed for general post-operative discomfort. Flomax helps to relax the ureter, which can relieve stent-related discomfort. This can cause some lightheadedness in some individuals, so we recommend taking it just before bedtime. One of the other medications being prescribed to you is Pyridium, which can help with burning/painful urination associated with the stent-- this can turn your urine an orange color. Do not be alarmedif this happens. Additionally, it can stain contact lenses an orange color, so avoid wearing contact lenses while taking this medication. You may notice some blood in your urine. This is expected and may continue while you have a stent in place. Keep yourself well-hydrated. Call the office or come to the Emergency Room if you have: * fevers >100.9F or chills or other signs of infection * uncontrolled nausea/vomiting * pain not controlled by your pain medication * inability to urinate * increased bleeding in your urine or blood clots You will be given a prescription for narcotic pain medication. Do not drive while taking narcotic pain medication. Narcotic pain medication can be constipating. If you are requiring this regularly, please consider taking a daily over the counter stool softener (such as colace) to prevent constipation. You may return to a regular diet. You may return to your regular level of activity. You may shower and/or bathe without restriction. If any questions or concerns arise prior to your follow-up visit, please call the office. * Attachments The following attachments cannot be sent through Care Everywhere. * General Anesthesia Adult Care After ([place]) documented in this encounter Medications at Time of Discharge Medication Sig Dispensed Refills Start Date End Date acetaminophen (TYLENOL) 325 MG tablet Take 3 tablets (975 mg total) by mouth. 03/17/2023 HYDROcodone-acetaminoph en (VICODIN) 5-300 MG per tablet Take 1 tablet by mouth 4 times daily (every 6 hours) as needed for severe pain. HYDROmorphone (DILAUDID) 2 MG tabletIndications:Calcu heriberto of kidney,Left flank pain Take 1 tablet (2 mg total) by mouth 3 times daily (every 8 hours) as needed for severe pain. Max Daily Amount: 6 mg 10 tablet 06/07/2024 ibuprofen (MOTRIN) 800 mg tabletIndications:Calcu heriberto of kidney,Left flank pain Take 1 tablet [...] as needed for dizziness. Multiple Vitamins-Minerals (b zlnhvcc-K-R-zinc) tablet Take 1 tablet by mouth every morning. ondansetron (ZOFRAN) 4 MG tabletIndications:Left flank pain Take 1 tablet (4 mg total) by mouth 3 times daily (every 8 hours) as needed for nausea or vomiting. 10 tablet 05/23/2024 phenazopyridine (PYRIDIUM) 200 MG tabletIndications:Calcu heriberto of kidney Take 1 tablet (200 mg total) by mouth 3 (three) times a day as needed for bladder spasms. 30 tablet 06/14/2024 phenazopyridine (PYRIDIUM) 200 MG tabletIndications:Calcu heriberto of kidney Take 1 tablet (200 mg [...] mouth every morning. tamsulosin (FLOMAX) 0.4 MG capsuleIndications:Calc ulus of kidney Take 1 capsule (0.4 mg total) by mouth daily. 14 capsule 06/14/2024 traMADol (ULTRAM) 50 MG tablet Take 1 tablet (50 mg total) by mouth 3 times daily (every 8 hours) as needed for severe pain. documented as of this encounter H&P Notes * Casey García MD - 06/14/2024 2:01 PM EDT Patient understands all all RBAs and wishes to proceed with a left ureteroscopy and holmium of her left renal calculi. Consent is signed and is on the chart. documented in this encounter Miscellaneous Notes * Op Note - Casey García MD - 06/14/2024 2:23 PM EDT Images from the original note were not included. [facility] PERIOPERATIVE SURGICAL SERVICES [address] [facility] [phone] OPERATIVE REPORT Patient Name: Patti Drake Date of : 1975 Date of Procedure: 06/14/2024 Surgeons and Role: * Casey García MD - Primary * Laci Poon MD - Resident - Assisting * Wiliam Byrne MD - Resident - Assisting Pre-op Diagnosis: Renal calculi [N20.0] Hydronephrosis with urinary obstruction due to ureteral calculus [N13.2] Post-Op Diagnosis Codes: * Renal calculi [N20.0] * Hydronephrosis with urinary obstruction due to ureteral calculus [N13.2] Details of Procedure Procedure(s): CYSTOSCOPY RETROGRADE URETEROSCOPY LASER LITHOTRIPSY STENT INSERTION/left Additional Procedures Surgeon: Casey García MD Family Reunification Specialist: Laci Poon MD and Wiliam Byrne MD Anesthesia: general Indications: Patient with a left ureteral calculus and pain presented for left ureteroscopy. Description of Procedure: Patient was brought to the operating room. She had sequential compressiondevices applied to her lower extremities and activated. She was placed in lithotomy position and assured her she was comfortable. She then underwent anesthesia. She was prepped and draped in the usual sterile fashion. She had vancomycin running in over an hour. A timeout was performed. Cystoscopy was performed and the bladder was within normal limits. We easily were able to pass wire up past the stone that could be seen on fluoroscopy and the wire curled within the renal pelvis. The rigid ureteroscope was then easily passed up to the level of the stone but the stone flew up into the kidney. We were able to follow it up into the kidney with the rigid ureteroscope. It was broken into 3 pieces. These pieces were each basketed and removed in total. On inspection of the remainder of the kidneythere were no other stones seen. The ureteroscope was removed under direct visualization. There is no trauma to the ureter whatsoever. The wire was then used to place a 6 x 26 [place]ian ureteral catheter. The wire was removed. Fluoroscopy confirmed 1 curl within the renal pelvis as well as 1 curl within the bladder. The string was left attached and taped to her leg. The bladder was drained of fluid.The patient was awoken from anesthetic, extubated, and brought back to the recovery room stable andin good condition Complications: none Operative Findings: She had 1 stone within the ureter that was pushed up into the kidney, it was broken up into 3 pieces and they were all basketed and removed in total. Total Fluids: 560 mL Drains: Ureteral stent [id number] Estimated Blood Loss: Less than 5 mL Blood Transfusion: No Implants: Implant Name Type Inv. Item Serial No. Filter Changing Technician Lot No. LRB No. Used Action [id number] STENT URETERAL 6FR 26CM TAPER TIP BLDR ESVIN LP CONTOUR HDR+ - [id number] Stent [id number] STENT URETERAL 6FR 26CM TAPER TIP BLDR ESVIN LP CONTOUR HDR+ [employer] JSOE [id number] Implanted Specimens: ID Type Source Tests Collected by Time Destination 1 : left urteral stone for stone analysis Calculus Ureter, left STONE ANALYSIS Casey García MD 06/14/2024 2:35 PM Disposition: awakened from anesthesia, extubated and taken to the recovery room in a stable condition, having suffered no apparent untoward event. Condition: good Casey García MD Date: 06/14/2024 Cc: Jane Dao MD documented in this encounter Plan of Treatment Upcoming Encounters Date Type Department Care Team (Late st Contact Info) Description 07/31/2024 9:00 AM EDT Office Visit [facility] [facility] [address] [place] [id number] Hope Peralta MD [address] [facility] [address] [place] [address] Pending Results Name Type Priority Associated Diagnoses Date /Time Stone Analysis Microbiology Routine 06/15/19 2:35 PM EDT Scheduled Orders Name Type Priority Associated Diagnoses Orde r Schedule Stone Analysis Microbiology Routine Release Upon Ordering for 1 Occurrences starting 06/14/2024 documented as of this encounter Procedures Procedure Name Priority Date/Time Associated Diagnosis Comments FL UROGRAM RETROGRADE IN OR (AUTO) (HH) Routine 06/14/2024 2:50 PM EDT AR CYSTO/URETERO W/LITHOTRIPSY &INDWELL STENT INSRT 06/14/2024 2:04 PM EDT Renal calculi Hydronephrosis with urinary obstruction due to ureteral calculus Special Needs HOLMIUMFLUOROSCOPYCONSENT SIGN DATE OF SURGERY documented in this encounter Results * FL Urogram Retrograde in OR (Auto) (HH) (06/14/2024 2:50 PM EDT) Anatomical Region Laterality Modality Right Radio Fluoroscop y 06/14/2024 2:15 PM EDT Impressions 06/15/2024 10:16 AM EDT Fluoroscopic guidance for left ureteral stone extraction and stent placement. Please see procedure report for additional information. ?? Narrative 06/15/2024 10:16 AM EDT EXAMINATION: FL URETHROGRAM RETROGRADE IN OR CLINICAL INFORMATION: Left stent exchange. ?? COMPARISON: None available. TECHNIQUE: Fluoroscopy during procedure. ?? FINDINGS: Left ureteral stent is noted with its proximal tip projecting over the left kidney and distal tip projecting adjacent to the pubic symphysis. ?? FLUOROSCOPY TIME: 0:23 (mm:ss) DOSE AREA PRODUCT: 222.84 uGy-m2 (microgray-meter squared) Procedure Note Marcus Bailey MD - 06/15/2024 EXAMINATION: FL URETHROGRAM RETROGRADE IN OR CLINICAL INFORMATION: Left stent exchange. COMPARISON: None available. TECHNIQUE: Fluoroscopy during procedure. FINDINGS: Left ureteral stent is noted with its proximal tip projecting over the left kidney and distal tip projecting adjacent to the pubic symphysis. FLUOROSCOPY TIME: 0:23 (mm:ss) DOSE AREA PRODUCT: 222.84 uGy-m2 (microgray-meter squared) IMPRESSION: Fluoroscopic guidance for left ureteral stone extraction and stent placement. Please see procedure report for additional information. Casey García MD IMG FLUOROSCOPY IRENESerena RUIZVELMA documented in this encounter Visit Diagnoses Diagnosis Calculus of kidney- Primary Renal calculi Calculus of kidney Hydronephrosis with urinary obstruction due to ureteral calculus documented in this encounter Administered Medications Inactive Administered Medications - up to 1 most recent administrations Medication Order MAR Action Action Date Dose Rate Site lactated ringers (LR) infusion 125 mL/hr, Intravenous, Continuous, Starting on Wed06/14/24 at 1330, PACU (only) haloperidol lactate (HALDOL) 5 mg/mL injection 0.5 mg 0.5 mg, Intravenous, Once PRN, refractory nausea and vomiting, Starting on Wed06/14/24 at 1326, For 1 dose, PACU (only), If ordered IV Push: administer undiluted at a maximum rate of 5 mg/minute. HYDROmorphone (DILAUDID) 2 mg/mL injection 0.2 mg 0.2 mg, Intravenous, Every 10 min PRN, mild pain 1-3, Starting on Wed06/14/24 at 1326, For 7 days, PACU (only), If a total of 3 mg has been administered across all pain scales, contact an anesthesia provider for reassessment Given 06/14/2024 3:06 PM EDT 0.2 mg HYDROmorphone (DILAUDID) 2 mg/mL injection 0.4 mg 0.4 mg, Intravenous, Every 10 min PRN, moderate to moderately severe pain 4-6, Starting on Wed06/14/24 at 1326, For 7 days, PACU (only), If a total of 3 mg has been administered across all pain scales, contact an anesthesia provider for reassessment HYDROmorphone (DILAUDID) 2 mg/mL injection 0.6 mg 0.6 mg, Intravenous, Every 10 min PRN, severe to excruciating pain 7-10, Starting on Wed06/14/24 at 1326, For 7 days, PACU (only), If a total of 3 mg has been administered across all pain scales, contact an anesthesia provider for reassessment naloxone (NARCAN) 0.4 mg/mL injection 0.04 mg 0.04 mg, Intravenous, Every 10 min PRN, itching, Starting on Wed06/14/24 at 1326, For 3 doses, PACU (only) sodium chloride irrigation (NS) 0.9 % irrigation solution BAG Once PRN, Starting on Wed06/14/24 at 1434, Intra-op Given 06/14/2024 2:34 PM EDT 500 mL documented in this encounter Active and Recently Administered Medications Times are shown in EDT. Scheduled Medication Order 06/12/2024 06/13/2024 06/14/2024 phenazopyridine (PYRIDIUM) tablet 200 mg 200 mg, Oral, Once, On Wed06/14/24 at 1500, For 1 dose, May discolor urine 1500 (Due) vancomycin (VANCOCIN) 1 g in sodium chloride (NS) 0.9 % 250 mL IVPB-WTD (COMPLETED) 1 g, Intravenous, Administer over 90 Minutes, Once, On Wed06/14/24 at 1430, For 1 dose, Pre-op, All antimicrobials used at [facility] require an indication. Please complete the following documentation. Surgical Prophylaxis 1413 (New Bag - Prov ider: Holger Bauer MD) Continuous Medication Order 06/12/2024 06/13/2024 06/14/2024 lactated ringers (LR) infusion 125 mL/hr, Intravenous, Continuous, Starting on Wed06/14/24 at 1330, PACU (only) 1330 (Due) PRN Medication Order 06/12/2024 06/13/2024 06/14/2024 haloperidol lactate (HALDOL) 5 mg/mL injection 0.5 mg 0.5 mg, Intravenous, Once PRN, refractory nausea and vomiting, Starting on Wed06/14/24 at 1326, For 1 dose, PACU (only), If ordered IV Push: administer undiluted at a maximum rate of 5 mg/minute. HYDROmorphone (DILAUDID) 2 mg/mL injection 0.2 mg(Linked Group 1) 0.2 mg, Intravenous, Every 10 min PRN, mild pain 1-3, Starting on Wed06/14/24 at 1326, For 7 days, PACU (only), If a total of 3 mg has been administered across all pain scales, contact an anesthesia provider for reassessment 1506 (Given - Provid er: Henri Horvath RN) HYDROmorphone (DILAUDID) 2 mg/mL injection 0.4 mg(Linked Group 1) 0.4 mg, Intravenous, Every 10 min PRN, moderate to moderately severe pain 4-6, Starting on Wed06/14/24 at 1326, For 7 days, PACU (only), If a total of 3 mg has been administered across all pain scales, contact an anesthesia provider for reassessment 1506 (See Alternativ e - Provider: Henri Horvath RN) HYDROmorphone (DILAUDID) 2 mg/mL injection 0.6 mg(Linked Group 1) 0.6 mg, Intravenous, Every 10 min PRN, severe to excruciating pain 7-10, Starting on Wed06/14/24 at 1326, For 7 days, PACU (only), If a total of 3 mg has been administered across all pain scales, contact an anesthesia provider for reassessment 1506 (See Alternativ e - Provider: Henri Horvath RN) naloxone (NARCAN) 0.4 mg/mL injection 0.04 mg 0.04 mg, Intravenous, Every 10 min PRN, itching, Starting on Wed06/14/24 at 1326, For 3 doses, PACU (only) sodium chloride irrigation (NS) 0.9 % irrigation solution BAG (CANCELED) Once PRN, Starting on Wed06/14/24 at 1434, Intra-op 1434 (Given - Provid er: Casey García MD) Linked Groups Order Group 1: HYDROmorphone (DILAUDID) 2 mg/mL injection 0.2 mgJump to med 0.2 mg, Intravenous, Every 10 min PRN, mild pain 1-3, Starting on Wed06/14/24 at 1326, For 7 days, PACU (only), If a total of 3 mg has been administered across all pain scales, contact an anesthesia provider for reassessment Or HYDROmorphone (DILAUDID) 2 mg/mL injection 0.4 mgJump to med 0.4 mg, Intravenous, Every 10 min PRN, moderate to moderately severe pain 4-6, Starting on Wed06/14/24 at 1326, For 7 days, PACU (only), If a total of 3 mg has been administered across all pain scales, contact an anesthesia provider for reassessment Or HYDROmorphone (DILAUDID) 2 mg/mL injection 0.6 mgJump to med 0.6 mg, Intravenous, Every 10 min PRN, severe to excruciating pain 7-10, Starting on Wed06/14/24 at 1326, For 7 days, PACU (only), If a total of 3 mg has been administered across all pain scales, contact an anesthesia provider for reassessment documented in this encounter Care Teams Chemical Compounder Relationship Specialty Start Date End Date Jane Dao MD [address] [place] [id number] (work) PCP - General General Medicine 05/31/23 documented as of this encounter
--- OUTSIDE RECORDS SUMMARY | 2024-06-16 15:41 | XMS_ITS | Encounter Summary ---
Author Organization [facility] Address [address] [place] [address] Care Team Providers Care Injection Molding Technician Name Role Phone Jane Dao MD Primary Care Provider [phone] Reason for Visit * Auth/Cert Specialty Diagnoses / Procedures Referred By Evangelist t Referred To Contact Diagnoses Renal calculi Hydronephrosis with urinary obstruction due to ureteral calculus Procedures OK CYSTO/URETERO W/LITHOTRIPSY &INDWELL STENT INSRT CYSTOSCOPY RETROGRADE URETEROSCOPY LITHOTRIPSY STENT INSERTION/left Referral ID Status Reason Start Date Expiration Date Visits Re quested Visits Authorized [id number] 1 1 Encounter Details Date Type Department Care Team (Late st Contact Info) Description 06/14/2024 12:05 PM EDT - 06/14/2024 4:31 PM EDT Hospital Encounter [facility] Perioperative Surgical Services [address] [place] [address] Casey García MD [address] [place] [address] Calculus of kidney (Primary Dx) Discharge Disposition: Home or Self Care Social [...] Sign Reading Time Taken Comments Blood Pressure 131/80 06/14/2024 4:00 PM EDT Pulse 94 06/14/2024 4:15 PM EDT Temperature 36.5 ??C (97.7 ??F) 06/14/2024 3:00 PM ED T Respiratory Rate 13 06/14/2024 4:15 PM EDT Oxygen Saturation 96% 06/14/2024 4:15 PM EDT Inhaled Oxygen Concentration - - [...] Everywhere. * General Anesthesia Adult Care After (Norwegian) documented in this encounter Medications at Time [...] as needed for dizziness. Multiple Vitamins-Minerals (b mczozic-Y-Y-zinc) tablet Take 1 tablet by mouth every [...] from the original note were not included. [facility] PERIOPERATIVE SURGICAL SERVICES [address] [facility] [phone] OPERATIVE REPORT Patient Name: Patti Drake Date [...] INSERTION/left Additional Procedures Surgeon: Casey García MD Physiognomist: Laci Poon MD and Wiliam Byrne MD [...] used to place a 6 x 26 Luxembourgish ureteral catheter. The wire was removed. Fluoroscopy [...] Implant Name Type Inv. Item Serial No. Molding Machine Operator Lot No. LRB No. Used Action [id number] STENT URETERAL 6FR 26CM TAPER TIP BLDR ESVIN LP CONTOUR HDR+ - [id number] Stent [id number] STENT URETERAL 6FR 26CM TAPER TIP BLDR ESVIN [employer] CONTOUR HDR+ SafetyTat JOSE [id number] Implanted Specimens: ID Type Source Tests [...] [facility] [facility] [address] [place] [address] Hope Peralta MD [address] [facility] [address] [place] [address] Pending Results Name Type Priority Associated Diagnoses Date /Time Stone Analysis Microbiology Routine 06/15/19 25 2:35 PM EDT Scheduled Orders Name Type Priority Associated Diagnoses Orde r Schedule Stone Analysis Microbiology Routine Release Upon Ordering for 1 Occurrences starting 06/14/2024 documented as of this encounter Procedures Procedure Name Priority Date/Time Associated Diagnosis Comments FL UROGRAM RETROGRADE IN OR (AUTO) (HH) Routine 06/14/2024 2:50 PM EDT OK CYSTO/URETERO W/LITHOTRIPSY &INDWELL STENT INSRT 06/14/2024 2:04 [...] additional information. Casey García MD IMG FLUOROSCOPY ORDE KEHINDE documented in this encounter Visit Diagnoses Diagnosis Calculus of kidney- Primary documented in this encounter Administered Medications Inactive [...] at 1326, For 3 doses, PACU (only) documented in this encounter Active and Recently [...] 1 dose, Pre-op, All antimicrobials used at [facility] require an indication. Please complete the [...] reassessment documented in this encounter Care Teams Injection Molding Technician Relationship Specialty Start Date End Date Jane Dao MD [address] [place] [phone] (work) PCP - General General Medicine 05/31/23 documented as of this encounter
--- OUTSIDE RECORDS SUMMARY | 2024-06-16 15:41 | XMS_ITS | Encounter Summary ---
Author Organization [facility] Address [address] [place] [address] Care Team Providers Care Public Affairs Specialist Name Role Phone Jane Dao MD Primary Care Provider [phone] Encounter Details Date Type Department Care Team (Latest Contact Info) Description 06/07/2024 Travel Social History Tobacco Use Types Packs/Day [...] Office Visit [facility] [address] [facility] [address] [place] [phone] Hope Peralta MD [address] [facility] [address] [place] [address] documented as of this encounter Visit Diagnoses Not on filedocumented in this encounter Care Teams Public Affairs Specialist Relationship Specialty Start Date End Date Jane Dao MD [address] [place] [phone] PCP - General General Medicine 05/31/23 documented as of this encounter
--- OUTSIDE RECORDS SUMMARY | 2024-06-16 15:41 | XMS_ITS | Encounter Summary ---
Author Organization [facility] Address [address] [place] [address] Care Team Providers Care Spreader Operator Automatic Name Role Phone Jane Dao MD Primary Care Provider [phone] Reason for Visit * Auth/Cert Specialty Diagnoses / Procedures Referred By Evangelist t Referred To Contact Diagnoses Renal calculi Hydronephrosis with urinary obstruction due to ureteral calculus Procedures GA CYSTO/URETERO W/LITHOTRIPSY &INDWELL STENT INSRT CYSTOSCOPY RETROGRADE URETEROSCOPY LITHOTRIPSY STENT INSERTION/left Referral ID Status Reason Start Date Expiration Date Visits Re quested Visits Authorized [id number] 1 1 Encounter Details Date Type Department Care Team (Late st Contact Info) Description 06/14/2024 2:10 PM EDT Anesthesia Event [facility] Perioperative Surgical Services [address] [place] [phone] Holger Bauer MD [address] [place] [address] Alicia Hinds PA-C [address] [facility] [address] [address] Anesthesia Record Procedure Summary Procedure Name Responsible Anesthesiologist Anesthesia Start Time Anesthesia Stop Time CYSTOSCOPY RETROGRADE URETEROSCOPY LASER LITHOTRIPSY STENT INSERTION/left (Left: Bladder) Holger Bauer MD 06/14/24 1410 06/14/24 1501 Events Date Time Event Comment 06/14/2024 1320 1320 AN Equip Check 1410 An Start 1410 An Start Data 1417 An Induction 1419 AN LMA 1419 Anesthesia Ready 1452 AN Emergence 1454 AN Lma 1456 AN Stop Data 1456 AN Pt Transferred 1456 AM Pt Transferred 1501 Handoff to Receiving I compl eted my handoff to the receiving clinician during which we: 1. Identified the patient 2. Identified the responsible provider 3. Reviewed pertinent medical history 4. Discussed the surgical or procedural course 5. Reviewed intraoperative management and issues during anesthesia 6. Set expectations for the post-procedure period 7. Allowed opportunity for questions and acknowledgement of understanding. 1501 An Stop Meds Name Total fentaNYL 50 mcg/mL injection 100 mcg lidocaine 2 % (PF) injection (5 mL VIAL) 2.5 mL propofol 10 mg/mL BOLUS 200 mg ondansetron (ZOFRAN) 2 mg/mL injection 4 mg dexamethasone 4 mg/mL injection 8 mg vancomycin (VANCOCIN) 1 g in sodium chlo ride (NS) 0.9 % 250 mL IVPB-WTD 1 g LR 300 mL * Agents Name O2 N2O Air Sevoflurane * Blood No blood administrations on file. Lines, Drains, and Airways Type Details Placement Removal PIV-Single luman 06/14/24; 1334; medi an vein (underside of arm), left; [id number] catheter system; 20 gauge; 06/14/24; 1618 06/14/24 1334 by Leslie Zuniga RN 06/14/24 1618 by Henri Horvath RN documented in this encounter Social History Tobacco Use Types Packs/Day Years [...] Sign Reading Time Taken Comments Blood Pressure - - Pulse - - Temperature - - Respiratory Rate 11 06/14/2024 2:56 PM EDT Oxygen Saturation 96% 06/14/2024 2:56 PM EDT Inhaled Oxygen Concentration - - Weight - - Height - - Body Mass Index - - documented in this encounter OR Notes * Anesthesia Postprocedure Evaluation - Holger Bauer MD - 06/14/2024 3:01 PM EDT Department of Anesthesiology Post-Anesthesia Evaluation Patient Name: Patti Drake : 1975 Admission Date: 06/14/2024 Attending Provider: Casey García MD Date of Service: 06/14/2024 Procedure Summary Date: 06/14/24 Room / Location: [address] Main OR Anesthesia Start: 1410 Anesthesia Stop: 1501 Procedure: CYSTOSCOPY RETROGRADE URETEROSCOPY LASER LITHOTRIPSY STENT INSERTION/left (Left: Bladder) Diagnosis: Renal calculi Hydronephrosis with urinary obstruction due to ureteral calculus (Renal calculi [N20.0]) (Hydronephrosis with urinary obstruction due to ureteral calculus [N13.2]) Surgeons: Casey García MD Responsible Provider: Holger Bauer MD Anesthesia Type: general ASA Status: 2 Anesthesia Type: general There were no known notable events for this encounter. Last vitals Vitals Value Taken Time BP 140/77 06/14/24 1500 Temp Pulse 80 06/14/24 1501 Resp 16 06/14/24 1501 SpO2 98 % 06/14/24 1501 Vitals shown include unfiled device data. Evaluation Vital signs are in the patient's normal range: Yes Respiratory function stable; airway patent: Yes Cardiovascular function and hydration status are stable: Yes Mental status recovered; patient participates in evaluation: Yes Pain control satisfactory: Yes Nausea and vomiting control is satisfactory: Yes This is an OB patient: No Quality Metrics Holger Bauer MD 06/14/2024 3:01 PM * Anesthesia Preprocedure Evaluation - Holger Bauer MD - 06/14/2024 9:56 AM EDT Department of Anesthesiology Pre-Procedure Evaluation Patient Name: Patti Drake : 1975 Admission Date: (Not on file) Attending Provider: Casey García MD Date of Service: 06/14/2024 Scheduled Procedure: CYSTOSCOPY RETROGRADE URETEROSCOPY LASER LITHOTRIPSY STENT INSERTION/left, Left - Bladder Pre-operative Diagnosis: Renal calculi [N20.0] Hydronephrosis with urinary obstruction due to ureteral calculus [N13.2] Relevant Problems No relevant active problems Allergies Allergen Reactions Cephalexin Anaphylaxis Codeine Other (See Comments) LOC Definity [Perflutren Lipid Microsphere] Anaphylaxis Gentamicin Anaphylaxis Influenza Vaccines Anaphylaxis Iodinated Contrast Media Anaphylaxis Percocet [Oxycodone-Acetaminophen] Shortness Of Breath Respiratory depression Pineapple Anaphylaxis Seafood Anaphylaxis White Kidney Marie [Phaseolus] Anaphylaxis Augmentin [Amoxicillin-Pot Clavulanate] Hives Bactrim [Sulfamethoxazole-Trimethoprim] Swelling Diflucan [Fluconazole] Hives Gadolinium Swelling Scopolamine GI Intolerance/Nausea/Vomiting Bad reaction Versed [Midazolam] GI Intolerance/Nausea/Vomiting STOP-Bang Score: 2 (06/08/2024 2:28 PM) Patient summary reviewed. Nursing notes reviewed. Pre-procedure vital signs reviewed. NPO status verified. General History of anesthetic complications - History of PONV Respiratory Positives: asthma Cardiovascular Positives: Exercise tolerance: >4 METS hypertension- Negatives: pacemaker Neuromuscular Positives: headaches migraine headaches neuromuscular disease (fibromyalgia): GI/Hepatic/Renal Positives: cirrhosis weight gain (BMI 35.9) Morbid obesity PONV renal calculi Endo/MET Hem/Lymph Skel/Skin Additional Findings: Fibromyalgia Psych Positives: anxiety HEENT Obstetrics Other Syndromes Physical Exam Airway Mallampati II TM distance >3 FB Neck ROM: full Dentition - no notable dental history normal rate regular rhythm Pulmonary - pulmonary exam normal breath sounds clear to auscultation Abdominal Past Medical History: Diagnosis Date Anesthesia complication [...] menopausal. 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 [employer] Tobacco Use Smoking status: Never Smokeless tobacco: Never Vaping Use Vaping status: Never Used Substance and Sexual Activity Alcohol use: Not Currently Comment: less than monthly Drug use: Never Sexual activity: Not Currently Partners: Male control/protection: None Other Topics Concern Not on file Social History Narrative Not on file Social Determinants of Health Financial Resource Strain: Not on file Food Insecurity: Not on file Transportation Needs: Not on file Physical Activity: Not on file Stress: Not on file Social Connections: Not on file Housing Stability: Not on file Ht Readings from Last 1 Encounters: 06/09/24 1.588 m (5' 2.5 ) Wt Readings from Last 1 Encounters: 06/09/24 90.4 kg (199 lb 6.4 oz) Body mass index is 35.67 kg/m??. White Blood Cell Count Date Value Ref Range Status 06/09/2024 8.3 4.0 - 11.0 Thou/uL Final Hemoglobin Date Value Ref Range Status 06/09/2024 13.1 11.7 - 15.7 g/dL Final Hematocrit Date Value Ref Range Status 06/09/2024 40.3 35.0 - 47.0 % Final Platelet Count Date Value Ref Range Status 06/09/2024 226 150 - 450 Thou/uL Final Sodium Date Value Ref Range Status 06/09/2024 142 136 - 145 mmol/L Final Potassium Date Value Ref Range Status 06/09/2024 4.2 3.4 - 5.3 mmol/L Final CO2 Date Value Ref Range Status 06/09/2024 26 22 - 33 mmol/L Final Chloride Date Value Ref Range Status 06/09/2024 107 98 - 107 mmol/L Final Glucose Date Value Ref Range Status 06/09/2024 86 65 - 99 mg/dL Final Comment: Fasting: <100 mg/dL, Non-Fasting: <200 mg/dL (ADA 2005) Blood Urea Nitrogen (BUN) Date Value Ref Range Status 06/09/2024 17 8 - 21 mg/dL Final Creatinine Date Value Ref Range Status 06/09/2024 0.9 0.4 - 1.1 mg/dL Final Calcium Date Value Ref Range Status 06/09/2024 9.3 8.7 - 10.5 mg/dL Final No results found for: ABORH , TYPE , SCREEN No results found for this or any previous visit (from the past 8760 hour(s)). NPO Status: Anesthesia Plan ASA Score: ASA 2 Consent: The anesthetic plan and associated risks was discussed with patient. Anesthesia Plan: general anesthesia The plan was discussed with the following care providers: attending. Post-Operative Pain Management: Post-operative opioids are intended. Routine Analgesia and Antiemetics : The preliminary anesthesia plan and risks were discussed. The final anesthesia plan will be determined by the responsible anesthesiologist. Attending Note I personally evaluated and examined the patient prior to the intra-operative phase of care. Alicia Hinds PA-C documented in this encounter Plan of Treatment Upcoming Encounters Date Type Department Care Team (Late st Contact Info) Description 07/31/2024 9:00 AM EDT Office Visit [facility] [address] [facility] [address] [place] [phone] Hope Peralta MD [address] [facility] [address] [place] [address] documented as of this encounter Visit Diagnoses Not on filedocumented in this encounter Administered Medications Inactive Administered Medications - up to 1 most recent administrations Medication Order MAR Action Action Date Dose Rate Site lactated ringers (LR) infusion Intravenous, Continuous PRN, Starting on Wed06/14/24 at 1410, Anesthesia Intra-op New Bag 06/14/2024 2:10 PM EDT dexAMETHasone (DECADRON) 4 mg/mL injection Intravenous, As needed, Starting on Wed06/14/24 at 1419, Anesthesia Intra-op Given 06/14/2024 2:19 PM EDT 8 mg fentaNYL 100 MCG/2ML injection Intravenous, As needed, Starting on Wed06/14/24 at 1415, Anesthesia Intra-op Given 06/14/2024 2:15 PM EDT 100 mcg lidocaine preservative free (XYLOCAINE-MPF) 2 % injection Intravenous, As needed, Starting on Wed06/14/24 at 1417, Anesthesia Intra-op Given 06/14/2024 2:17 PM EDT 2.5 mL ondansetron (ZOFRAN) injection Intravenous, As needed, Starting on Wed06/14/24 at 1450, Anesthesia Intra-op Given 06/14/2024 2:50 PM EDT 4 mg propofol (diPRIvan) injection Intravenous, As needed, Starting on Wed06/14/24 at 1419, Anesthesia Intra-op Given 06/14/2024 2:19 PM EDT 200 mg vancomycin (VANCOCIN) 1 g in sodium chloride (NS) 0.9 % 250 mL IVPB-WTD 1 g, Intravenous, Administer over 90 Minutes, Once, On Wed06/14/24 at 1430, For 1 dose, Pre-op, All antimicrobials used at [facility] require an indication. Please complete the following documentation. Surgical Prophylaxis New Bag 06/14/2024 2:13 PM EDT 1 g documented in this encounter Care Teams Spreader Operator Automatic Relationship Specialty Start Date End Date Jane Dao MD [address] [place] [phone] (work) PCP - General General Medicine 05/31/23 documented as of this encounter
--- OUTSIDE RECORDS SUMMARY | 2024-06-16 15:41 | XMS_ITS | Clinical Summary ---
Author Organization [facility] Address [address] [place] [address] Care Team Providers Care Turbine Engineer Name Role Phone Jane Dao MD Primary Care Provider [phone] Allergies Active Allergy Reactions Criticality Noted Date Comments Amoxicillin-Pot Clavulanate Hives Medium 07/30/2015 Sulfamethoxazole-Trim ethoprim Swelling Medium 11/26/2023 Cephalexin Anaphylaxis High 11/26/2023 Clindamycin Phos-Benzoyl Perox Anaphylaxis High 06/14/2024 Codeine Other (See Comments) High 11/26/2023 LOC Perflutren Lipid Microsphere Anaphylaxis High 11/26/2023 Fluconazole Hives Medium 11/26/2023 Gadolinium Swelling Medium 11/26/2023 Gentamicin Anaphylaxis High 11/26/2023 Influenza Vaccines Anaphylaxis High 11/26/2023 Iodinated Contrast Media Anaphylaxis High 11/26/2023 Oxycodone-Acetaminoph en Shortness Of Breath High 11/26/2023 Respiratory depression Pineapple Anaphylaxis High 11/26/2023 Scopolamine GI Intolerance/Nausea/Vo miting Low 06/08/2024 Bad reaction Seafood Anaphylaxis High 11/26/2023 Midazolam GI Intolerance/Nausea/Vo miting Low 11/26/2023 Phaseolus Anaphylaxis High 11/26/2023 Medications Medication Sig Dispensed Refills Start Date End Date Status losartan (COZAAR) 50 MG tablet Take 1 tablet (50 mg total) by mouth every morning. 07/29/2023 Active HYDROcodone-acet aminophen (VICODIN) 5-300 MG per tablet Take 1 tablet by mouth 4 times daily (every 6 hours) as needed for severe pain. Active tamsulosin (FLOMAX) 0.4 MG capsule Take 1 capsule (0.4 mg total) by mouth every morning. Active traMADol (ULTRAM) 50 MG tablet Take 1 tablet (50 mg total) by mouth 3 times daily (every 8 hours) as needed for severe pain. Active meclizine (ANTIVERT) 12.5 MG tablet Take 1 tablet (12.5 mg total) by mouth 3 (three) times a day as needed for dizziness. Active magnesium 30 MG tablet Take 1 tablet (30 mg total) by mouth 2 (two) times a day. Active Multiple Vitamins-Mineral s (b mymnbvr-N-U-zinc ) tablet Take 1 tablet by mouth every morning. Active levocetirizine (Xyzal Allergy 24HR) 5 MG tablet Take 1 tablet (5 mg total) by mouth every evening. 03/15/2023 Active phentermine 15 MG capsule Take 1 capsule (15 mg total) by mouth every morning. Active levalbuterol (XOPENEX HFA) 45 mcg/puff inhaler INHALE 1 PUFF BY MOUTH EVERY 6 HOURS NEEDED 09/16/2023 Active ibuprofen (MOTRIN) 800 mg tabletIndication s:Calculus of kidney,Left flank pain Take 1 tablet (800 mg total) by mouth 3 times daily (every 8 hours) as needed for mild pain. 30 tablet 05/23/2024 Active ondansetron (ZOFRAN) 4 MG tabletIndication s:Left flank pain Take 1 tablet (4 mg total) by mouth 3 times daily (every 8 hours) as needed for nausea or vomiting. 10 tablet 05/23/2024 Active HYDROmorphone (DILAUDID) 2 MG tabletIndication s:Calculus of kidney,Left flank pain Take 1 tablet (2 mg total) by mouth 3 times daily (every 8 hours) as needed for severe pain. Max Daily Amount: 6 mg 10 tablet 06/07/2024 Active acetaminophen (TYLENOL) 325 MG tablet Take 3 tablets (975 mg total) by mouth. 03/17/2023 Active SUMAtriptan (IMITREX) 25 MG tablet TAKE 1 TABLET BY MOUTH EVERY 2 TO 4 HOURS NEEDED FOR MIGRAINE HEADACHE. DO NOT EXCEED 8 DOSES IN 24 HOURS. Active phenazopyridine (PYRIDIUM) 200 MG tabletIndication s:Calculus of kidney Take 1 tablet (200 mg total) by mouth 3 (three) times a day as needed for bladder spasms. 30 tablet 06/14/2024 Active phenazopyridine (PYRIDIUM) 200 MG tabletIndication s:Calculus of kidney Take 1 tablet (200 mg total) by mouth 3 (three) times a day in the morning, mid-day and early evening. 10 tablet 06/14/2024 Active tamsulosin (FLOMAX) 0.4 MG capsuleIndicatio ns:Calculus of kidney Take 1 capsule (0.4 mg total) by mouth daily. 14 capsule 06/14/2024 Active ciprofloxacin (CIPRO) 500 MG tablet Take 1 tablet (500 mg total) by mouth 2 (two) times a day. 14 tablet 06/15/2024 06/22/2024 Active HYDROmorphone (DILAUDID) 2 MG tablet Take 1 tablet (2 mg total) by mouth 4 times daily (every 6 hours) as needed for severe pain. 05/23/2024 Discontinued (Reorder) ondansetron (ZOFRAN) 4 MG tablet Take 1 tablet (4 mg total) by mouth 3 times daily (every 8 hours) as needed for nausea or vomiting. 05/23/2024 Discontinued (Therapy completed) multivitamin Tab tablet Take 1 tablet by mouth daily. 06/08/2024 Discontinued (Therapy completed) ferrous sulfate 325 (65 FE) MG tablet Take 1 tablet (325 mg total) by mouth daily. Take 2 hours before or 4 hours after acid reducers. 05/23/2024 Discontinued (Therapy completed) aspirin enteric coated (ECOTRIN LOW STRENGTH) 81 MG EC tablet Take 1 tablet (81 mg total) by mouth daily. 05/23/2024 Discontinued (Therapy completed) methylPREDNISolo ne (MEDROL) 32 MG tabletIndication s:Gallbladder polyp Take 1 tablet (32 mg) 12 hours prior to procedure with contrast and 1 tablet (32 mg) 2 hours prior to procedure with contrast. 2 tablet 11/26/2023 06/08/2024 Discontinued (Therapy completed) diphenhydrAMINE (BENADRYL) 50 MG tabletIndication s:Gallbladder polyp Take 1 tablet (50 mg total) by mouth once. Take 1 tablet (50 mg) 1 hours prior to procedure with contrast. 1 tablet 11/26/2023 06/08/2024 Discontinued (Therapy completed) LORazepam (ATIVAN) 0.5 MG tabletIndication s:Gallbladder polyp,Claustroph obia Take 2 tablets (1 mg total) by mouth 1 time if needed (for MRI premedication). 2 tablet 11/26/2023 06/08/2024 Discontinued (Therapy completed) propranolol (INDERAL) 10 MG tablet Take 1 tablet (10 mg total) by mouth 3 (three) times a day. 06/08/2024 Discontinued (Therapy completed) phenazopyridine (PYRIDIUM) 200 MG tabletIndication s:Calculus of kidney,Left flank pain Take 1 tablet (200 mg total) by mouth 3 (three) times a day as needed for bladder spasms (bladder irritation). 30 tablet 1 05/23/2024 06/14/2024 Discontinued (Stop Taking at Discharge) HYDROmorphone (DILAUDID) 2 MG tabletIndication s:Calculus of kidney,Left flank pain Take 1 tablet (2 mg total) by mouth 3 times daily (every 8 hours) as needed for severe pain. Max Daily Amount: 6 mg 6 tablet 05/23/2024 06/07/2024 Discontinued (Reorder) Active Problems Problem Noted Date Diagnosed Date Mild intermittent asthma without complication Assessment & Plan (06/09/2024 3:14 PM EST): Medication compliant with inhaler therapy. No recent flares or hospitalizations. Continue current medication regimen as prescribed. Continue plan as previously directed by your provider. Fibromyalgia 06/09/2024 Assessment & Plan (06/09/2024 3:15 PM EST): Managed with current regimen and PT. Continue current medication regimen as prescribed. Continue plan as previously directed by your provider. Anxiety 06/09/2024 Assessment & Plan (06/09/2024 3:16 PM EST): Managed with integrated threapiesy. Patient denies suicidal or homicidal ideation. Continue current medication regimen as prescribed. Patient to follow up with provider as previously directed. Obesity (BMI 30-39.9) 06/09/2024 Assessment & Plan (06/09/2024 3:17 PM EST): Managed with Phentermine. Diet, exercise and lifestyle modifications. Migraine without aura and wi thout status migrainosus, not intractable 06/09/2024 Assessment & Plan (06/09/2024 3:17 PM EST): Well-controlled and managed with Imitrex PRN. Continue current medication regimen as prescribed. Continue plan as previously directed by your provider. Hypertension 06/09/2024 Assessment & Plan (06/09/2024 3:22 PM EST): Well-controlled by lifestyle and medication. Continue current medication regimen as prescribed. Continue plan as previously directed by your provider. Calculus of kidney 06/07/2024 Left flank pain 06/07/2024 Calculus of ureter 06/07/2024 Cirrhosis of liver without ascites 11/26/2023 Encounters Date Type Department Care Team Description 06/16/2024 Telephone [facility] Urologic Surgery [address] [phone] Violet Suggs, CLINICAL LAB ASSISTANT 06/15/2024 9:40 AM EDT - 06/15/2024 3:58 PM EDT Emergency [facility] Emergency Department [address] [place] [phone] Mak Joy MD Ureteral stent present (Primary Dx); UTI (urinary tract infection) Discharge Disposition: Home or Self Care 06/14/2024 2:10 PM EDT Anesthesia Event [facility] Perioperative Surgical Services [address] [place] [phone] Holger Bauer MD Gordon, Jennifer L PA-Francisca 06/14/2024 1:45 PM EDT - 06/14/2024 3:15 PM EDT Surgery [facility] Per[facility] Services [address] [place] [phone] Casey García MD CYSTOSCOPY RETROGRADE URETEROSCOPY LASER LITHOTRIPSY STENT INSERTION/left 06/14/2024 12:05 PM EDT - 06/14/2024 4:31 PM EDT Hospital Encounter [facility] Perioperative [facility] Services [address] [place] [phone] Casey García MD Calculus of kidney (Primary Dx) Discharge Disposition: Home or Self Care 06/14/2024 Travel 06/13/2024 Telephone [facility] Surgical Oncology [place] [address] [facility] [address] [place] [phone] Hope Peralta MD Results Request 06/10/2024 Orders Only [facility] [address] [place] [address] Liyah Oneil MD 06/09/2024 7:41 PM EST - 06/09/2024 11:59 PM EST Hospital Encounter [facility] [address] [place] [address] Anu Poe APRN Discharge Disposition: Home or Self Care 06/09/2024 3:00 PM EST Pre-Admission Testing [facility] Pre-[facility]mission Testing [facility] in [address] [place] [phone] Anu Poe APRN Preprocedural examination (Primary Dx); Mild intermittent asthma without complication; Fibromyalgia; Anxiety; Obesity (BMI 30-39.9); Migraine without aura and without status migrainosus, not intractable; Hypertension, unspecified type 06/08/2024 Travel 06/07/2024 2:10 PM EST Ancillary Procedure [facility] Radiology [address] [place] [address] Provider, File Room 06/07/2024 1:45 PM EST Telemedicine [facility] Urology [address] [place] [phone] Casey García MD Calculus of kidney (Primary Dx); Left flank pain; Calculus of ureter 06/07/2024 Orders Only [facility] Urology [address] [place] [phone] Liyah Oneil MD 06/07/2024 Telephone [facility] Urology [address] [place] [phone] Casey García MD Medical Complaint 06/07/2024 Travel 06/02/2024 Orders Only [facility] Urology [address] [place] [address] ProviderLiyah MD 06/02/2024 Telephone [facility] [address] [place] [address] Violet Suggs APRN Advice Only; Prior Authorization; Call Patient 05/23/2024 9:00 AM EST Office Visit [facility] Urology [address] [place] [phone] Violet Suggs APRN Calculus of kidney (Primary Dx); Left flank pain; Microscopic hematuria 05/23/2024 Telephone [facility] Urology [address] [place] [phone] Violet Suggs APRN Other 05/23/2024 Travel 04/20/2024 Telephone [facility] Surgical Oncology [place] [address] [facility] [address] [place] [phone] Hope Peralta MD from Last 3 Months [...] Not Answered Alcohol Use Standard Drinks/Week Comments Not Currently [...] EDT Inhaled Oxygen Concentration - - Weight 90.4 kg (199 lb 6.4 oz) 06/09/2024 3:22 P M EST Height 158.8 cm (5' 2.5 ) 06/09/2024 3:22 PM EST Body Mass Index 35.89 06/09/2024 3:22 PM EST Plan of Treatment Upcoming Encounters Date Type Department Care Team (Late st Contact Info) Description 07/31/2024 9:00 AM EDT Office Visit [facility] [place] [address] [facility] [address] [place] [phone] Hope Peralta MD [address] [facility] [address] [place] [address] Health Maintenance Due Date Last Done Comments [...] 01/23/2015 COVID-19 Vaccine ( season) 2023, 11/28/2020 Medical Devices Implanted Type Area Blender Laborer Device Identifier Shelf Expiration Date Model / Serial / Lot [id number] Stent Ureteral 6fr 26cm Taper Tip Bldr Alvino Lp Contour Hdr+ - [id number] Implanted:Qty : 1 on 06/14/2024 by Casey García MD at [facility] Stent Left: Ureter [employer] JOSE [id number] 01/24/2027 [id number] / / [id number] Procedures Procedure Name Priority Date/Time Associated Diagnosis Comments URINALYSIS WITH REFLEX TO MICROSCOPIC AND CULTURE STAT 06/15/2024 12:37 PM EDT COMPREHENSIVE METABOLIC PANEL STAT 06/15/2024 10:59 AM EDT COMPLETE BLOOD COUNT, WITH DIFFERENTIAL STAT 06/15/2024 10:59 AM EDT XR ABDOMEN 1 VIEW STAT 06/15/2024 10: 50 AM EDT ECG 12-LEAD STAT 06/15/2024 9:56 AM EDT [place] UROGRAM RETROGRADE IN OR (AUTO) (HH) Routine 06/14/2024 2:50 PM EDT HI CYSTO/URETERO W/LITHOTRIPSY &INDWELL STENT INSRT 06/14/2024 2:04 PM EDT Renal calculi Hydronephrosis with urinary obstruction due to ureteral calculus Special Needs HOLMIUMFLUOROSCOPYCONSENT SIGN DATE OF SURGERY HX OUTSIDE ORDER Routine 06/10/2024 1:05 AM EST COMPLETE BLOOD COUNT, WITH DIFFERENTIAL Routine 06/09/2024 2:50 PM EST BASIC METABOLIC PANEL Routine 06/09/2024 2:50 PM EST URINE CULTURE Routine 06/09/2024 2:50 PM EST Preprocedural examination ROSALVA ARCHIVE FOR REFERENCE ONLY CT Routine 06/07/2024 2:[address] KIDNEY/URETER/BLADDE R W/O CONTRAST Routine 06/07/2024 1:[address] ABDOMEN+PELVIS W W/O CONTRAST Routine 06/07/2024 1:39 PM EST POCT URINALYSIS DIPSTICK, AUTOMATED Routine 06/07/2024 1:29 PM EST Calculus of kidney IMAGING RESULT Routine 05/31/2024 11:17 AM EST URINALYSIS WITH MICROSCOPIC Routine 05/23/2024 10:34 AM EST Microscopic hematuria POCT URINALYSIS DIPSTICK, AUTOMATED Routine 05/23/2024 8:58 AM EST Calculus of kidney from Last 3 Months Results * (ABNORMAL) Urinalysis with Reflex to Microscopic and Culture (06/15/2024 12:37 PM EDT) Color [place] 06/15/2024 1:22 PM [facility] Clarity Slightly cloudy 06/15/2024 1:22 PM [facility] Specific [place] 1.015 1.003 - 1.030 06/15/2024 1:22 PM [facility] pH 6.0 5.0 - 8.0 06/15/2024 1:22 PM [facility] Leukocyte Esterase Negative Negative 06/15/2024 1:22 PM [facility] Nitrite Unable to perform chemistries due to color of urine(A) Negative 06/15/2024 1:22 PM [facility] Protein Unable to perform chemistries due to color of urine(A) Negative 06/15/2024 1:22 PM [facility] Glucose 0 0 - 99 mg/dL 06/15/2024 1:22 PM [facility] Ketones Negative Negative 06/15/2024 1:22 PM [facility] Blood Large(A) Negative 06/15/2024 1:22 PM [facility] Bilirubin Unable to perform chemistries due to color of urine(A) Negative 06/15/2024 1:22 PM EDT [facility] WBC 5(H) 0 - 4 per hpf 06/15/2024 1:22 PM EDT [facility] RBC >25(H) 0 - 4 per hpf 06/15/2024 1:22 PM EDT [facility] Bacteria Present(A) Absent 06/15/2024 1:22 PM EDT [facility] Squamous Epithelial Cells 1 PER HPF 06/15/2024 1:22 PM EDT [facility] Calcium Oxalate Crystals Present 06/15/2024 1:22 PM EDT [facility] Urine Voided urine specimen / Unknown 06/15/2024 12:37 PM EDT 06/15/2024 1:04 PM EDT Nirmal Escoto PA-C MICROBIOLOGY - GENERAL ORDERABLES [address] [address], [address] [address] * (ABNORMAL) Complete Blood Count, with Differential (06/15/2024 10:59 AM EDT) Only the most recent of2 resultswithin the time period is included. White Blood Cell Count 18.2(H) 4.0 - 11.0 Thou/uL 06/15/2024 12:15 PM [facility] Platelet Count 255 150 - 450 Thou/uL 06/15/2024 12:15 PM [facility] Hemoglobin 13.8 11.7 - 15.7 g/dL 06/15/2024 12:15 PM [facility] Hematocrit 41.8 35.0 - 47.0 % 06/15/2024 12:15 PM [facility] Red Blood Cell Count 4.80 4.00 - 5.40 Mil/uL 06/15/2024 12:15 PM [facility] MCV 87 80 - 100 fL 06/15/2024 12:15 PM [facility] MCH 28.8 27.0 - 31.0 pg 06/15/2024 12:15 PM [facility] MCHC 33.0 30.0 - 36.0 g/dL 06/15/2024 12:15 PM EDT [facility] RDW 12.6 11.5 - 14.5 % 06/15/2024 12:15 PM EDT [facility] MPV 10.7 7.5 - 12.5 fL 06/15/[facility]24 [facility] 88 % 12:19 PM T [facility] Comment:Hypersegmented neutr ophils present. Lymphocytes Man 8 % 12:19 PM EDT [facility] Monocytes Man 4 % 06/15/2024 12:19 PM EDT [facility] Abs Neutrophils Count (ANC) 16.0(H) 2.0 - 7.5 Thou/uL 06/15/2024 12:19 PM EDT [facility] Abs Lymphocytes Man 1.5 1.5 - 4.5 Thou/uL 06/15/2024 12:19 PM [facility] Abs Monocytes Man 0.7 0.2 - 1.5 Thou/uL 06/15/2024 12:19 [facility] Normochromic Present 06/15/2024 12:19 PM [facility] Normocytic Present 06/15/2024 12:19 PM [facility] Blood Blood specimen / Unknown 06/15/2024 10:59 AM EDT 06/15/2024 11:21 AM EDT Nirmal Escoto PA-C LAB BLOOD [facility] Organization Address City/State/ZIP Co de Phone Number [address] [address], [address] [address] * (ABNORMAL) Comprehensive Metabolic Panel (06/15/2024 10:59 AM EDT) Glucose 127(H) 65 - 99 mg/dL 06/15/2024 11:57 AM EDT [facility] Comment:Fasting: <100 mg/dL, Non-Fasting: <200 mg/dL (ADA 2005) Blood Urea Nitrogen (BUN) 16 8 - 21 mg/dL 06/15/2024 11:57 AM EDT [facility] Creatinine 0.9 0.4 - 1.1 mg/dL 06/15/2024 11:57 AM [facility] eGFR 77 >59 06/15/2024 11:57 AM [facility] Comment:CKD-EPI (2020) in mL /min/1.73 sq meters. Sodium 142 136 - 145 mmol/L 06/15/2024 11:57 AM [facility] Potassium 3.8 3.4 - 5.3 mmol/L 06/15/2024 11:57 AM [facility] Chloride 106 98 - 107 mmol/L 06/15/2024 11:57 AM [facility] CO2 26 22 - 33 mmol/L 06/15/2024 11:57 AM [facility] Calcium 9.6 8.7 - 10.5 mg/dL 06/15/2024 11:57 AM [facility] Alkaline Phosphatase 148(H) 32 - 122 U/L 06/15/2024 11:57 AM [facility] Aspartate Aminotrans (AST) 24 10 - 50 U/L 06/15/2024 11:57 AM [facility] Alanine Aminotrans (ALT) 48 10 - 50 U/L 06/15/2024 11:57 AM [facility] Bilirubin, Total 0.5 0.2 - 1.0 mg/dL 06/15/2024 11:57 AM [facility] Protein, Total 7.5 6.3 - 8.3 g/dL 06/15/2024 11:57 AM [facility] Albumin 4.2 3.5 - 5.0 g/dL 06/15/2024 11:57 AM [facility] BUN/Creatinine Ratio 18 10.0 - 25.0 Ratio 06/15/2024 11:57 AM [facility] Globulin 3.3 1.5 - 3.9 g/dL 06/15/2024 11:57 AM [facility] Albumin/Globulin Ratio 1.3 1.0 - 3.0 Ratio 06/15/2024 11:57 AM [facility] Anion Gap 10 7 - 17 06/15/2024 11:57 AM [facility] Blood Blood specimen / Unknown 06/15/2024 10:59 AM EDT 06/15/2024 11:21 AM EDT Nirmal Escoto PA-C LAB BLOOD ORDE KEHINDE [facility] [address] [place] [address], [facility] [address] [place] [address] * XR Abdomen 1 view (06/15/2024 10:50 [...] AM EDT) Ventricular rate 105 BPM EKG [facility] Atrial rate 105 BPM EKG [facility] P-R interval 136 ms EKG [facility] QRS duration 84 ms EKG [facility] Q-T interval 332 ms EKG [facility] QTC calculation (Bazett) 439 ms EKG [facility] P axis 47 degrees EKG [facility] R axis 16 degrees EKG [facility] T axis -3 degrees EKG [facility] 06/15/2024 9:56 AM EDT Narrative EKG [facility] - 06/15/2024 10:10 AM EDT Sinus tachycardia Otherwise normal ECG No previous ECGs available Confirmed by MD Spivey Sneha ([id number]) on 06/15/2024 10:10:35 AM Procedure Note Jeri Spivey MD - 06/15/2024 Sinus tachycardia Otherwise normal ECG No previous ECGs available Confirmed by MD Spivey Sneha ([id number]) on 06/15/2024 10:10:35 AM Nirmal Escoto PA-C ECG ORDERABLES [facility] * [place] Urogram Retrograde in OR (Auto) () (06/14/2024 2:50 PM EDT) Anatomical Region Laterality [...] information. Casey García MD IMG FLUOROSCOPY ORDE RABLES * OUTSIDE ORDER (06/10/2024 1:05 AM EST) External Provider HX AMB PROCEDURES * Urine Culture (06/09/2024 2:50 PM EST) Culture Sterile or less than 1000 col/mL 06/11/2024 11:16 AM EDT [facility] Urine Urine specimen obtained by clean catch procedure / Unknown 06/09/2024 2:50 PM EST 06/09/2024 9:21 PM EST Comment:Urine Anu Poe APRN MICROBIOLOGY - GEN ERAL ORDERABLES [facility] [address] * BASIC METABOLIC PANEL (06/09/2024 2:50 PM EST) Glucose 86 65 - 99 mg/dL 06/09/2024 8:43 PM [facility] Comment:Fasting: <100 mg/dL, Non-Fasting: <200 mg/dL (ADA 2005) Blood Urea Nitrogen (BUN) 17 8 - 21 mg/dL 06/09/2024 8:43 PM [facility] Creatinine 0.9 0.4 - 1.1 mg/dL 06/09/2024 8:43 PM [facility] eGFR 77 >59 06/09/2024 8:43 PM [facility] Comment:CKD-EPI (2020) in mL /min/1.73 sq meters. Sodium 142 136 - 145 mmol/L 06/09/2024 8:43 PM [facility] Potassium 4.2 3.4 - 5.3 mmol/L 06/09/2024 8:43 PM [facility] Chloride 107 98 - 107 mmol/L 06/09/2024 8:43 PM [facility] CO2 26 22 - 33 mmol/L 06/09/2024 8:43 PM [facility] Anion Gap 9 7 - 17 06/09/2024 8:43 PM [facility] Calcium 9.3 8.7 - 10.5 mg/dL 06/09/2024 8:43 PM [facility] BUN/Creatinine Ratio 19 10.0 - 25.0 Ratio 06/09/2024 8:43 PM [facility] 06/09/2024 2:50 PM EST 06/09/2024 8:01 PM EST Anu Poe CLINICAL LAB ASSISTANT LAB BLOOD ORDERABL ES [address] [address], [address] [address] * ORSALVA Archive for reference only CT (06/07/2024 2:10 PM EST) Narrative TAMARA - 06/07/2024 2:05 PM EST This order has been auto-finalized and does not contain a result. File Room Provider IMG DIGITIZE FILMS [place] [phone] * CT Kidney/ureter/bladder w/o contrast (06/07/2024 1:42 PM EST) Anatomical Region Laterality Modality Abdomen, Pelvis Computed Tomogra phy External Provider IMG CT ORDERABLES * CT Abdomen+pelvis w w/o contrast (06/07/2024 1:39 PM EST) Anatomical Region Laterality Modality Abdomen, Pelvis Computed Tomogra phy External Provider IMG CT ORDERABLES * POCT Urinalysis Dipstick, Automated (06/07/2024 1:29 PM EST) Only the most recent of2 resultswithin the time period is included. Source, UA Voided Color, UA Yellow Yellow [...] Leukocyte Esterase, UA Negative Negative Lot Number [id number] [place] [facility] Urine 06/07/2024 1:29 PM EST Casey García MD POINT OF CARE TEST O RDERABLES * Imaging Result (05/31/2024 11:17 AM EST) Anatomical Region Laterality Modality Other External Provider IMG LEGACY PROCEDUR ES * (ABNORMAL) Urinalysis with Microscopic (05/23/2024 10:34 AM EST) Pathologist [facility] Color YELLOW YELLOW Stance Clarity CLEAR CLEAR Stance Specific [place] 1.019 1.001 - 1.035 Stance pH 6.5 5.0 - 8.0 Stance Glucose, Urine, Random NEGATIVE NEGATIVE Stance Bilirubin NEGATIVE NEGATIVE [facility] Ketones NEGATIVE NEGATIVE [facility] Blood 2+(A) NEGATIVE [facility] Protein NEGATIVE NEGATIVE Stance Nitrite NEGATIVE NEGATIVE Stance Leukocyte Esterase NEGATIVE NEGATIVE Stance WBC NONE SEEN < OR = 5 /HPF Stance RBC 10-20(A) < OR = 2 /HPF Stance Squamous Epithelial Cells NONE SEEN < OR = 5 /HPF Stance Bacteria NONE SEEN NONE SEEN /HPF Stance Hyaline Cast NONE SEEN NONE SEEN /LPF Stance Note Stance Comment: This urine was analyzed for the presence of WBC, RBC, bacteria, casts, and other formed elements. Only those elements seen were reported. X-Specimen 16 Urine specimen obtained by clean catch procedure / Unknown 05/23/2024 10:34 AM EST 05/24/2024 3:23 AM EST Violet Suggs CLINICAL LAB ASSISTANT URINE ORDERABLES Performing Organization Address City/State/[facility] Co de Phone Number [email or web address] [address] [place] [phone] from Last 3 Months Care Teams Turbine Engineer Relationship Specialty Start Date End Date Jane Dao MD [address] [place], [place] [id number] PCP - General General Medicine 05/31/23
--- OUTSIDE RECORDS SUMMARY | 2024-06-16 15:41 | XMS_ITS | Encounter Summary ---
Author Organization [facility] [place] [facility] Address [address] [place] [address] Care Team Providers Care General Utility Machine Operator Name Role Phone Jane Dao MD Primary Care Provider [phone] Encounter Details Date Type Department Care Team (Latest Contact Info) Description 06/09/2024 7:41 PM EST - 06/09/2024 11:59 PM EST Hospital Encounter OP SPECIMEN LAB [address] [place] [address] Anu Poe, PARTH [address] [facility] [address] [place] [address] Discharge Disposition: Home or Self Care Social [...] PM EST documented as of this encounter Medications at Time of Discharge Medication Sig Dispensed Refills Start Date End Date acetaminophen (TYLENOL) 325 MG tablet Take 3 tablets (975 mg total) by mouth. 03/17/2023 HYDROcodone-acetaminop hen (VICODIN) 5-300 MG per tablet [...] as needed for dizziness. Multiple Vitamins-Minerals (b iumpzgy-V-G-zinc) tablet Take 1 tablet by mouth every [...] 8 hours) as needed for severe pain. phenazopyridine (PYRIDIUM) 200 MG tabletIndications:Calc ulus of kidney,Left flank pain Take 1 tablet (200 mg total) by mouth 3 (three) times a day as needed for bladder spasms (bladder irritation). 30 tablet 1 05/23/2024 06/14/2024 documented as of this encounter Plan of Treatment Upcoming Encounters Date Type Department Care Team (Late st Contact Info) Description 07/31/2024 9:00 AM EDT Office Visit [facility] [place] [address] [facility] [facility] [address] [place] [address] Hope Peralta MD 85 [facility] [address] [place] [address] documented as of this encounter Procedures Procedure Name Priority Date/Time Associated Diagnosis Comments COMPLETE BLOOD COUNT, WITH DIFFERENTIAL Routine 06/09/2024 2:50 PM EST BASIC METABOLIC PANEL Routine 06/09/2024 2:50 PM EST documented in this encounter Results * (ABNORMAL) Complete Blood Count, with Differential (06/09/2024 2:50 PM EST) [facility] White Blood Cell Count 8.3 4.0 - 11.0 Thou/uL 06/09/2024 8:22 PM EST [facility] Platelet Count 226 150 - 450 Thou/uL 06/09/2024 8:22 PM [facility] Hemoglobin 13.1 11.7 - 15.7 g/dL 06/09/2024 8:22 PM [facility] Hematocrit 40.3 35.0 - 47.0 % 06/09/2024 8:22 PM [facility] Red Blood Cell Count 4.57 4.00 - 5.40 Mil/uL 06/09/2024 8:22 PM [facility] MCV 88 80 - 100 fL 06/09/2024 8:22 PM [facility] MCH 28.7 27.0 - 31.0 pg 06/09/2024 8:22 PM [facility] MCHC 32.5 30.0 - 36.0 g/dL 06/09/2024 8:22 PM [facility] RDW 12.8 11.5 - 14.5 % 06/09/2024 8:22 PM [facility] MPV 11.2 7.5 - 12.5 fL 06/09/2024 8:22 PM [facility] Neutrophils Auto 46.0 % 06/10/19 8:22 PM [facility] Immature Granulocytes 0.4 % 06/09/2024 8:22 PM [facility] Lymphocytes Auto 34.1 % 06/10/19 8:22 PM [facility] Monocytes Auto 6.3 % 06/09/2024 8:22 PM [facility] Eosinophils Auto 11.9 % 06/10/19 8:22 PM [facility] Basophils Auto 1.3 % 06/09/2024 8:22 PM [facility] Abs Neutrophils Auto 3.80 2.00 - 7.50 Thou/uL 06/09/2024 8:22 PM [facility] Abs Immature Granulocytes 0.03 0.00 - 0.10 Thou/uL 06/09/2024 8:22 PM [facility] Abs Lymphocytes Auto 2.82 1.50 - 4.50 Thou/uL 06/09/2024 8:22 PM [facility] Abs Monocytes Auto 0.52 0.20 - 1.50 Thou/uL 06/09/2024 8:22 PM [facility] Abs Eosinophils Auto 0.98(H) 0.00 - 0.70 Thou/uL 06/09/2024 8:22 PM [facility] Abs Basophils Auto 0.11 0.00 - 0.20 Thou/uL 06/09/2024 8:22 PM [facility] Blood specimen / Unknown 06/09/2024 2:50 PM EST 06/09/2024 8:01 PM EST Anu Poe CHEMICAL BLENDER LAB BLOOD ORDERABL ES [address] [address], [address] [address] * BASIC METABOLIC PANEL (06/09/2024 2:50 PM EST) Glucose 86 65 - 99 mg/dL 06/09/2024 8:43 PM [facility] Comment:Fasting: <100 mg/dL, Non-Fasting: <200 mg/dL (ADA 2005) Blood Urea Nitrogen (BUN) 17 8 - 21 mg/dL 06/09/2024 8:43 PM [facility] Creatinine 0.9 0.4 - 1.1 mg/dL 06/09/2024 8:43 PM [facility] eGFR 77 >59 06/09/2024 8:43 PM [facility] Comment:CKD-EPI (2020) in mL /min/1.73 sq meters. Sodium 142 136 - 145 mmol/L 06/09/2024 8:43 PM [facility] Potassium 4.2 3.4 - 5.3 mmol/L 06/09/2024 8:43 PM [facility] Chloride 107 98 - 107 mmol/L 06/09/2024 8:43 PM [facility] CO2 26 22 - 33 mmol/L 06/09/2024 8:43 PM [facility] Anion Gap 9 7 - 17 06/09/2024 8:43 PM [facility] Calcium 9.3 8.7 - 10.5 mg/dL 06/09/2024 8:43 PM [facility] BUN/Creatinine Ratio 19 10.0 - 25.0 Ratio 06/09/2024 8:43 PM [facility] 06/09/2024 2:50 PM EST 06/09/2024 8:01 PM EST Anu Poe CHEMICAL BLENDER LAB BLOOD ORDERABL ES Performing Organization Address City/State/[facility] Co de Phone Number [address] [address], [address] [address] documented in this encounter Visit Diagnoses Not on filedocumented in this encounter Care Teams General Utility Machine Operator Relationship Specialty Start Date End Date Jane Dao MD [address] [place] [address] PCP - General General Medicine 05/31/23 documented as of this encounter
--- OUTSIDE RECORDS SUMMARY | 2024-06-16 15:41 | XMS_ITS | Encounter Summary ---
Author Organization [facility] Address [address] [place] [address] Care Team Providers Care Natural Sciences Department Chair Name Role Phone Jane Dao MD Primary Care Provider [phone] Encounter Details Date Type Department Care Team (Late st Contact Info) Description 11/30/2023 Scanned Document [facility] Surgical Oncology [place] [address] [phone] Hope Peralta MD [address] [phone] Social History Tobacco Use Types Packs/Day Years [...] Office Visit [facility] [place] [address] [facility] [facility] [address] [place] [phone] Hope Peralta MD [address] [phone] documented as of this encounter Visit Diagnoses Not on filedocumented in this encounter Care Teams Natural Sciences Department Chair Relationship Specialty Start Date End Date Jane Dao MD [address] [place] [address] PCP - General General Medicine 05/31/23 documented as of this encounter
--- OUTSIDE RECORDS SUMMARY | 2024-06-16 15:41 | XMS_ITS | Encounter Summary ---
Author Organization [facility] Address [address] [place] [address] Care Team Providers Care Seo Expert Name Role Phone Jane Dao MD Primary Care Provider [phone] Encounter Details Date Type Department Care Team (Late st Contact Info) Description 06/16/2024 Telephone [facility] Urologic Surgery [address] [place] [address] Violet Suggs, PARTH [address] [facility] [address] [place] [address] Social History Tobacco Use Types Packs/Day Years [...] Office Visit [facility] [place] [address] [facility] 203 [place] [phone] Hope Peralta MD 85 [facility] [address] [place] [address] documented as of this encounter Visit Diagnoses Not on filedocumented in this encounter Care Teams Seo Expert Relationship Specialty Start Date End Date Jane Dao MD [address] [place] [address] PCP - General General Medicine 05/31/23 documented as of this encounter
--- OUTSIDE RECORDS SUMMARY | 2024-06-16 15:41 | XMS_ITS | Encounter Summary ---
Author Organization [facility] Address [address] [place] [address] Care Team Providers Care Debug Technician Name Role Phone Jane Dao MD Primary Care Provider [phone] Encounter Details Date Type Department Care Team (Late Contact Info) Description 06/10/2024 Orders Only HH OP SPECIMEN LAB [address] [place] [address] Provider, External, [address] [place] [phone] Social History Tobacco Use Types Packs/Day Years [...] 07/31/2024 9:00 AM EDT Office [facility] [address] [address] Hope Peralta MD [address] [address] documented as of this encounter Procedures Procedure Name Priority Date/Time Associated Diagnosis Comments HX OUTSIDE ORDER Routine 06/10/2024 1:05 AM EST documented in this encounter Results * OUTSIDE ORDER (06/10/2024 1:05 AM EST) External Provider MD KRUE[facility] AMB PROCEDURES documented in this encounter Visit Diagnoses Not on filedocumented in this encounter Care Teams Debug Technician Relationship Specialty Start Date End Date Jane Dao MD [address] [place] [address] PCP - General General Medicine 05/31/23 documented as of this encounter
--- OUTSIDE RECORDS SUMMARY | 2024-06-16 15:41 | XMS_ITS | Encounter Summary ---
Author Organization [facility] Address [address] [place] [address] Care Team Providers Care Supervisor Gear Repair Name Role Phone Jane Dao MD Primary Care Provider [phone] Encounter Details Date Type Department Care Team (Latest Contact Info) Description 06/14/2024 Travel Social History Tobacco Use Types Packs/Day [...] Office Visit [facility] [place] 7 [address] [facility] [address] [place] [phone] Hope Peralta MD 85 [facility] [address] [place] [address] documented as of this encounter Visit Diagnoses Not on filedocumented in this encounter Care Teams Supervisor Gear Repair Relationship Specialty Start Date End Date Jane Dao MD [address] [place] [address] PCP - General General Medicine 05/31/23 documented as of this encounter
--- OUTSIDE RECORDS SUMMARY | 2024-06-16 15:41 | XMS_ITS | Encounter Summary ---
Author Organization [facility] Address [address] [place] [address] Care Team Providers Care Block Setter Gypsum Name Role Phone Jane Dao MD Primary Care Provider [phone] Reason for Visit * Reason Comments Results Request Encounter Details Date Type Department Care Team (Late st Contact Info) Description 06/13/[address] [facility] Surgical Oncology [address] [address] Hope Peralta MD 85 [facility] [address] [place] [address] Results Request Social History Tobacco Use Types Packs/Day Years [...] as of this encounter Miscellaneous Notes * Addendum Note - Corky Davis RN - 06/13/2024 12:37 PM EDTAddended by: CORKY DAVIS on: 06/13/2024 12:37 PM Modules accepted: Orders * Telephone Encounter - Corky Davis RN - 06/13/2024 12:33 PM EDT Returned call to pt. Informed her of need for ultrasound. She would like this ordered to [facility] instead. Ultrasound re-ordered. Follow up appt with MD rescheduled, details confirmed. Pt verbalized understanding and expressed gratitude. Will call with any further questions/concerns. * Telephone Encounter - Corky Davis RN - 06/13/2024 11:49 AM EDT Returned call to pt. She reports she did not complete ultrasound at [facility] that was due in May 2024. She recently had CT scan ordered by [facility] urology. Pt is wondering if she still needs to complete ultrasound or if CT scan images are sufficient enough. Informed her this speech writer will discuss with MD and return call. She expressed gratitude. * Telephone Encounter - Kacie Little - 06/13/2024 11:01 AM EDT Pt would like to go over her test results...SL documented in this encounter Plan of Treatment Upcoming Encounters Date Type Department Care Team (Late st Contact Info) Description 07/31/2024 9:00 AM EDT Office Visit [facility] [place] [facility] [address] [place] [address] Hope Peralta MD 85 [facility] [address] [place] [address] Scheduled Orders Name Type Priority Associated Diagnoses Orde r Schedule US Abdomen-Limited Imaging Routine Gallbladder polyp Abnormal gall bladder diagnostic imaging Expected: 06/13/2024, Expires: 06/13/2025 documented as of this encounter Visit Diagnoses Diagnosis Gallbladder polyp- Primary Cholesterolosis of gallbladder Abnormal gall bladder diagnostic imaging documented in this encounter Care Teams Block Setter Gypsum Relationship Specialty Start Date End Date Jane Dao MD [address] [place] [address] PCP - General General Medicine 05/31/23 documented as of this encounter
[2024-06-16] MEDS: oxyBUTYnin chloride ER 5 MG TAB.ER.24 10 MG PO (16:42)
[2024-06-16 16:45] LABS: Appearance Urine Clear; Glucose Urine UA 100 mg/dL (Negative); UMIC TRIGGER UACC YES; Urine Ketones Trace mg/dL (Negative); Urine Protein 100 (2+) mg/dL (Neg-Trace)
[2024-06-16 16:47] LABS: Color Urine Orange
[2024-06-16 16:50] LABS: Bacteria Urine None Seen (None Seen); Hyaline Casts Urine 0-2 /LPF (0-2); RBC Urine >20 /HPF (0-2); Squamous Epithelial Cell Urine 0-2 /HPF (0-2); WBC Urine 0-5 /HPF (0-5)
[2024-06-16] MEDS: levoFLOXacin/D5W 750 MG/150 ML PIGGYBACK 100 MG IV (16:51)
[2024-06-16 16:57] LABS: Lactic Acid 1.1 mmol/L (0.5-2.0)
--- NOTE | 2024-06-16 18:14 | ECG_ITS ---
Test Reason : cp Blood Pressure : */* mmHG Vent. Rate : 76 BPM Atrial Rate : 76 BPM P-R Int : 138 ms QRS Dur : 88 ms QT Int : 402 ms P-R-T Axes : 48 4 -2 degrees QTcB Int : 452 ms Normal sinus rhythm with sinus arrhythmia Minimal voltage criteria for LVH, may be normal variant ( R in aVL ) Borderline ECG When compared with ECG of 28-Jul-2022 09:18, No significant change was found Referred By: Liliana Kim Electronically Signed By: JL STODDARD
[2024-06-16 19:10] VITALS: BP 114/82; PULSE 88; RESP 18; TEMP 37; O2SAT 98
--- NOTE | 2024-06-16 19:24 | PC.NURSE ---
pt medicated per mar for 710 left flank pain. vss.
[2024-06-16] MEDS: Metoclopramide HCl 10 MG/2 ML VIAL IVPUSH (19:59)
--- NOTE | 2024-06-16 20:07 | PM.IMHP ---
History of Present Illness Date of Service: 06/16/24 Attending physician on admission: Jason Kyle Chief Complaint: Abd pain Pt is a 49-year-old female with a PMH significant for?asthma, HTN, and nephrolithiasis who presents to the ED for evaluation of?abdominal and flank pain. Pt reports has had some recent difficulty with left nephrolithiasis with 5 mm stone. Scheduled outpatient lithotripsy and left-sided ureteral stent placement at [facility] 2 days prior on 06/14. Reports procedure initially went well, until Wednesday when she started developing left-sided flank and abdominal pain. Yesterday pt presented to [facility] ED for evaluation and was diagnosed with UTI and discharged home on ciprofloxacin p.o.. That night pt noticed that her stent felt like it was migrating down and she noticed a little bit sticking out of her urethra. Earlier today noticed stent had migrated even further. Called [facility] in the directed her to remove it herself, place it in a bag, and bring it to a follow up office visit next week. Pt reports approximately 30-60 minutes after stent removal she developed severe, intractable abdominal pain and intractable nausea and vomiting. Despite multiple antiemetics and IV analgesics in the ED, patient's symptoms persist and she is actively vomiting at time of interview and exam. Reports left-sided flank and lower abdominal pain occasionally radiates to the right. No SOB or difficulty breathing. Denies chest pain/pressure, palpitations. In the ED pt was tachycardic up to 97, and hypertensive up to 175/104. Labs were significant for leukocytosis 12.7, AST 40, and alk-phos 125, otherwise grossly unremarkable and around baseline for pt. Stable H&H. No bandemia. No significant electrolyte abnormalities. Renal function WNL. Lactic acid WNL. UA does not appear grossly infected. Bilateral renal ultrasound showed bilateral echogenic stones, mild pelvic fullness or hydroureter kidney, and negative for hydronephrosis on the right side. EKG demonstrated normal sinus rhythm similar to prior. Pt was treated with ketorolac, IVF, ondansetron, oxybutynin, metoclopramide, hydromorphone, and levofloxacin. Pt will be admitted to the hospital under observation for treatment of intractable N/V and left-sided flank and pelvic pain secondary to failed ureteral stent. Review of Systems Review of Systems: Negative except for that which is stated in the HPI [facility] Medical History Liver cyst History of COVID-19 Post-operative nausea and vomiting NAFLD (nonalcoholic fatty liver disease) Morbid obesity with BMI of 40.0-44.9, adult H/O ganglion cyst Essential hypertension NSVT (nonsustained ventricular tachycardia) Vertigo Kidney stones Migraine Carotid artery disease Fibromyalgia HTN (hypertension) Asthma PAC (premature atrial contraction) PVC (premature ventricular contraction) Family History Father Skin cancer Cardiovascular disease Myocardial infarction Hypertension IBS (irritable bowel syndrome) Mother Hypertension Sister Myocardial infarction Hypertension Heartburn Paternal Uncle Colon cancer Paternal Grandmother Colon cancer Surgical History History of endometrial ablation Hx of cystoscopy Hx of lithotripsy H/O esophagogastroduodenoscopy H/O colonoscopy History of partial hysterectomy Social History Household Members: Children Housing: Apartment Do you presently have visiting nurse or other home services: No Alcohol intake: current Alcohol intake frequency: holidays/special occasions only Patient Tobacco Use Status: Never used Tobacco Smoked in Last 30 Days: No Second Hand Smoke Exposure: No Use of substances other than those prescribed or required for medical reasons: No Advance Directives: Yes Advance Directives on File: Yes Advance Directives Date on File: 08/21/21 Patient : No service: No Current occupational status: employed Meds Allergies Allergy/AdvReac Type Severity Reaction Status Date / Time cephalexin [CEPHALEXIN] Allergy Severe SWELLING Verified 06/16/24 13:53 clavulanic acid Allergy Severe ANAPHYLAXIS Verified 06/16/24 13:53 [From AUGMENTIN] clindamycin [CLINDAMYCIN] Allergy Severe TONGUE Verified 06/16/24 13:53 SWELLING codeine Allergy Severe PASSED OUT Verified 06/16/24 13:53 influenza virus vaccine, Allergy Severe ANAPHYLAXIS Verified 06/16/24 13:53 specific [FLU VACCINE] perflutren [From Definity] Allergy Severe hives/anaph Verified 06/16/24 13:53 ylaxis seafood Allergy Severe Anaphylaxis Verified 06/16/24 13:53 fluconazole Allergy Intermediate HIVES Verified 06/16/24 13:53 gentamicin [GENTAMICIN] Allergy Intermediate RASH Verified 06/16/24 13:53 Iodinated Contrast Media Allergy Intermediate Hives Verified 06/16/24 13:53 [IV Contrast Dye] oxycodone Allergy Intermediate SOB Verified 06/16/24 13:53 sulfamethoxazole Allergy Mild swelling Verified 06/16/24 13:53 [From Bactrim] trimethoprim [From Bactrim] Allergy Mild swelling Verified 06/16/24 13:53 pineapple Allergy Anaphylaxis Verified 06/16/24 13:53 scopolamine AdvReac Severe Vomiting Verified 06/16/24 13:53 midazolam AdvReac Intermediate Vomiting Verified 06/16/24 13:53 Home Medications ?Medication ?Instructions ?Recorded ?Confirmed ?Last Taken ?Type losartan 50 mg tablet 50 mg PO DAILY 04/24/22 12/08/23 Unknown History albuterol sulfate 90 mcg/actuation 2 puff inhalation Q4H PRN wheezing 08/06/22 12/08/23 Unknown History aerosol inhaler epinephrine 0.3 mg/0.3 mL 0.3 ml IM ONCE PRN 08/19/22 12/08/23 Unknown History injection, auto-injector ibuprofen 800 mg tablet 800 mg PO Q8H PRN 08/19/22 12/08/23 Unknown History tamsulosin 0.4 mg capsule (Flomax) 0.4 mg PO DAILY 06/28/23 12/08/23 Unknown History tramadol 50 mg tablet 50 mg PO BID PRN 09/07/23 12/08/23 Unknown History ciprofloxacin HCl 500 mg tablet 500 mg PO BID 06/16/24 Unknown History phenazopyridine 200 mg tablet 200 mg PO TID 06/16/24 Unknown History phentermine 15 mg capsule 15 mg PO DAILY 06/16/24 Unknown History Physical Exam Vital Signs and Narrative: Vital Signs: Last Vital Signs Temp 98.6 F 06/16/24 19:10 Pulse 88 06/16/24 19:10 Resp 18 06/16/24 19:10 BP 114/82 06/16/24 19:10 Pulse Ox 98 06/16/24 19:10 O2 Del Method Room Air 06/16/24 19:10 BMI result Body Mass Index 35.7 General: AOx3, no acute distress though looks uncomfortable Resp: CTA bilaterally CVS: S1, S2, RRR GI: Left-sided flank and LLQ tenderness; pt actively vomiting during interview and exam Skin: Warm, dry Neuro: Cranial nerves II-XII grossly intact bilaterally. Motor grossly intact bilaterally Extremities: No edema Psych: Appropriate affect Results Labs 06/16/24 14:15 06/16/24 14:15 Labs: Laboratory Results - last 24 hr 06/16/24 06/16/24 14:15 16:36 MCV 85.0 MCH 29.0 MCHC 34.1 RDW 12.9 Plt Count 216 MPV 10.4 Immature Gran % (Auto) 0.8 H Neut % (Auto) 59.5 Lymph % (Auto) 31.2 [place] % (Auto) 6.4 Eos % (Auto) 1.3 Baso % (Auto) 0.8 Lymph # (Auto) 4.0 [place] # (Auto) 0.8 Eos # (Auto) 0.2 Baso # (Auto) 0.1 Abs Immat Gran (auto) 0.10 H Absolute Neuts (auto) 7.5 Absolute Nucleated RBC 0.000 Nucleated RBC % (auto) 0.0 Anion Gap 13 Estim Creat Clear Calc 79.0 Estimated GFR > 60 Random Glucose 93 Lactic Acid 1.1 Calcium 8.8 Total Bilirubin 0.7 AST 25 ALT 40 H Alkaline Phosphatase 125 H Total Protein 7.6 Albumin 3.9 Urine Color [place] A Urine Appearance Clear Urine pH 7.0 Ur Specific [place] 1.020 Urine Protein 100 (2+) H Urine Glucose (UA) 100 H Urine Ketones Trace Urine Blood See Note Urine Nitrite See Note Ur Leukocyte Esterase See Note Urine RBC >20 H Urine WBC 0-5 Ur Squamous Epith Cells 0-2 Urine Bacteria None Seen Hyaline Casts 0-2 Imaging Radiologist's Impressions: Impressions Renal Ultrasound 06/16/24 15:58 IMPRESSION: Bilateral echogenic stones. There is mild pelvic fullness or hydroureter kidney. No hydronephrosis on the right side... Electronically signed by: Jamil Murphy MD 06/16/2024 05:13 PM EDT Assessment and Plan (1) Acute flank pain: Status: Acute (2) Intractable nausea and vomiting: Status: Acute Plan Pt is a 49-year-old female with a PMH significant for?asthma, HTN, and nephrolithiasis who presents to the ED for evaluation of?abdominal and flank pain. Pt will be admitted to the hospital under observation for treatment of intractable N/V and left-sided flank and pelvic pain secondary to failed ureteral stent. Intractable N/V and abd pain Secondary to failed stent placement on 06/14 at [facility] Pt received multiple doses of IV antiemetics and IV analgesics in the ED without resolution of symptoms We will continue to treat with IV antibiotics, IV analgesics Will place on maintenance fluids Continue tamsulosin Diet as tolerated Urology consult Follow BMP Acute UTI UA from [facility] yesterday positive for UTI Today's UA not acutely infected Labs, including leukocytosis, improved over yesterday's No sepsis: tachycardia secondary to pain; lactic acid WNL Will treat with levofloxacin, started 06/16/2024 Follow urine cultures Asthma unspecified Not in acute exacerbation Continue home inhalers HTN Continue losartan Full Code Attending:?Dr. Kyle DVT Prophylaxis: Lovenox Pt will be admitted to the hospital under observation for treatment and further evaluation of intractable nausea, vomiting, and left-sided flank/abdominal pain secondary to failed outpatient ureteral stent. Given that pt is unable to tolerate p.o. at this time, they will require hospital level care for administration of IV antiemetics and IV analgesics. Quality Stroke Does the patient have a stroke diagnosis?: No VTE Prior VTE?: No VTE Risk Level:: Medical - moderate - high VTE Device Contraindication: Treatment Not Indicated VTE Drug Contraindication: N/A - Med Ordered
[2024-06-16] MEDS: Enoxaparin Sodium 40 MG/0.4 ML SYRINGE SUBCUT (21:31)
[2024-06-16] MEDS: Prochlorperazine Edisylate 10 MG/2 ML VIAL 5 MG IVPUSH (21:31)
[2024-06-16] MEDS: 0.9 % Sodium Chloride Flush 3 ML SYRINGE IVFLUSH (21:32)
[2024-06-16] MEDS: Lactated Ringers 1,000 ML 100 ML IVCONT (21:32)
--- NOTE | 2024-06-16 22:19 | PHA.MEDREC ---
Pharmacy Consult ? Medication Reconciliation Pharmacy has completed the medication reconciliation.
[2024-06-16 23:39] VITALS: BP 129/74; PULSE 90; RESP 18; TEMP 36.9; O2SAT 98
[2024-06-17] VITALS (8 sets, daily range): BP systolic 112–139; BP diastolic 67–89; PULSE 70–100; RESP 16–20; TEMP 36.3–36.9; O2SAT 94–96
[2024-06-17 04:28] LABS: Hematocrit 34.7 % (37.0-47.0); Hemoglobin 11.7 g/dl (12.0-16.0); Mean Corpuscular HGB Conc 33.7 g/dl (31.0-35.0); Mean Corpuscular Hemoglobin 28.8 pg (27.0-33.0); Mean Corpuscular Volume 85.5 fL (80.0-98.0); Mean Platelet Volume 10.1 fL (9.4-12.3); Platelet Count 189 X10*3/uL (160-400); Red Blood Count 4.06 X10*6/uL (4.20-5.50); White Blood Count 9.3 X10*3/uL (4.8-10.8)
[2024-06-17 04:48] LABS: Anion Gap 12 (12-20); Blood Urea Nitrogen 13 mg/dL (9-16); Calcium 8.8 mg/dL (8.4-10.2); Carbon Dioxide 24 mmol/L (22-29); Chloride 109 mmol/L (96-108); Creatinine Clr Calc Pharmacy 92.9; Estimated Glomerular Filt Rate > 60; Glucose Random 88 mg/dL (60-115); Potassium 3.8 mmol/L (3.3-5.1); Sodium 141 mmol/L (135-145)
--- NOTE | 2024-06-17 06:01 | PC.NURSE ---
pt awake and alert at this time, pt is offering no complaints, vss, respirations even and unlabored.
[2024-06-17] MEDS: Ketorolac Tromethamine 30 MG/ML VIAL IVPUSH ×3 (07:55→20:36)
[2024-06-17] MEDS: Phenazopyridine HCL 200 MG TABLET PO ×3 (09:19→20:39)
[2024-06-17] MEDS: Tamsulosin HCL 0.4 MG CAPSULE PO (09:19)
[2024-06-17] MEDS: Multivitamin TABLET 1 TAB PO (09:19)
[2024-06-17] MEDS: Magnesium Oxide 400 MG TABLET 300 MG PO (09:20)
[2024-06-17] MEDS: Losartan Potassium 50 MG TABLET PO (09:20)
--- NOTE | 2024-06-17 09:30 | P.PNIM_ITS ---
Subjective Subjective Date of Service: 06/17/24 Review of Systems Follow up intractable nausea and vomiting feeling better Physical Exam 2 Vital Signs: Vital Signs: Last Vital Signs Temp 98.3 F 06/17/24 07:56 Pulse 88 06/17/24 07:56 Resp 16 06/17/24 07:56 BP 139/89 06/17/24 07:56 Pulse Ox 96 06/17/24 07:56 O2 Del Method Room Air 06/17/24 07:56 BMI result Body Mass Index 35.7 Appearing in no acute distress lung sounds are clear to auscultation heart regular rate rhythm, clear S1, S2 positive bowel sounds, abdomen is soft, nontender neuro patient is alert x3, no focal deficits Objective Data Active Medications Acetaminophen (Acetaminophen 325 Mg Tablet) 650 mg PO Q6H PRN PRN Reason: Pain, Mild 1-3,fever,headache Albuterol Sulfate (Albuterol Sulfate 90 Mcg 8 Gm Inhaler) 2 puff INHALE Q4H PRN PRN Reason: wheezing Calcium Carbonate (Calcium Carbonate 750 Mg Tab.Chew) 750 mg PO Q4H PRN PRN Reason: Heartburn Enoxaparin Sodium (Enoxaparin Sodium 40 Mg/0.4 Ml Syringe) 40 mg SUBCUT Q24H [facility] Last Admin: 06/16/24 21:31 Dose: 40 mg Documented By: DIMITRI Hydromorphone HCl (Hydromorphone Hcl 1 Mg/Ml Syringe) 1 mg IVPUSH Q4H PRN; Protocol PRN Reason: Pain, Severe (Pain Scale 7-10) Levofloxacin (Levaquin) 750 mg in 150 mls @ 100 mls/hr IV Q24H [facility] Ketorolac Tromethamine (Ketorolac Tromethamine 30 Mg/Ml Vial) 30 mg IVPUSH Q6H PRN PRN Reason: Pain, Moderate(Pain Scale 4-6) Stop: 06/18/24 21:04 Last Admin: 06/17/24 07:55 Dose: 30 mg Documented By: AURELIO Losartan Potassium (Losartan Potassium 50 Mg Tablet) 50 mg PO DAILY [facility]; Protocol Last Admin: 06/17/24 09:20 Dose: 50 mg Documented By: AURELIO Magnesium Hydroxide (Milk Of Magnesia 30 Ml Oral.Susp) 30 ml PO DAILY PRN PRN Reason: Constipation Magnesium Oxide (Magnesium Oxide 400 Mg Tablet) 300 mg PO DAILY [facility] Last Admin: 06/17/24 09:20 Dose: 300 mg Documented By: AURELIO Melatonin (Melatonin 3 Mg Tablet) 6 mg PO BEDTIME PRN PRN Reason: Insomnia Multivitamins/Vitamin C (Multivitamin Tablet) 1 tab PO DAILY [facility] Last Admin: 06/17/24 09:19 Dose: 1 tab Documented By: AURELIO Ondansetron HCl (Ondansetron Hcl 4 Mg/2 Ml Vial) 4 mg IVPUSH Q8H PRN PRN Reason: Nausea and Vomiting Phenazopyridine HCl (Phenazopyridine Hcl 200 Mg Tablet) 200 mg PO TID [facility] Last Admin: 06/17/24 09:19 Dose: 200 mg Documented By: AURELIO Sodium Chloride (0.9 % Sodium Chloride Flush 3 Ml Syringe) 3 ml IVFLUSH QSHIFT [facility] Last Admin: 06/17/24 07:06 Dose: Not Given Documented By: AURELIO Non-Admin Reason: Patient Asleep Tamsulosin HCl (Tamsulosin Hcl 0.4 Mg Capsule) 0.4 mg PO DAILY [facility] Last Admin: 06/17/24 09:19 Dose: 0.4 mg Documented By: AURELIO Labs 06/17/24 03:46 06/17/24 03:46 Labs: Laboratory Results - last 24 hr 06/16/24 06/16/24 06/17/24 14:15 16:36 03:46 MCV 85.0 85.5 MCH 29.0 28.8 MCHC 34.1 33.7 RDW 12.9 13.0 Plt Count 216 189 MPV 10.4 10.1 Immature Gran % (Auto) 0.8 H Neut % (Auto) 59.5 Lymph % (Auto) 31.2 [place] % (Auto) 6.4 Eos % (Auto) 1.3 Baso % (Auto) 0.8 Lymph # (Auto) 4.0 [place] # (Auto) 0.8 Eos # (Auto) 0.2 Baso # (Auto) 0.1 Abs Immat Gran (auto) 0.10 H Absolute Neuts (auto) 7.5 Absolute Nucleated RBC 0.000 0.000 Nucleated RBC % (auto) 0.0 0.0 Anion Gap 13 12 Estim Creat Clear Calc 79.0 92.9 Estimated GFR > 60 > 60 Random Glucose 93 88 Lactic Acid 1.1 Calcium 8.8 8.8 Total Bilirubin 0.7 AST 25 ALT 40 H Alkaline Phosphatase 125 H Total Protein 7.6 Albumin 3.9 Urine Color [place] A Urine Appearance Clear Urine pH 7.0 Ur Specific [place] 1.020 Urine Protein 100 (2+) H Urine Glucose (UA) 100 H Urine Ketones Trace Urine Blood See Note Urine Nitrite See Note Ur Leukocyte Esterase See Note Urine RBC >20 H Urine WBC 0-5 Ur Squamous Epith Cells 0-2 Urine Bacteria None Seen Hyaline Casts 0-2 Assessment and Plan (1) UTI (urinary tract infection): Status: Acute (2) Intractable nausea and vomiting: Status: Acute Plan Pt is a 49-year-old female with a PMH significant for?asthma, HTN, and nephrolithiasis who presents to the ED for evaluation of?abdominal and flank pain. Pt will be admitted to the hospital under observation for treatment of intractable N/V and left-sided flank and pelvic pain secondary to failed ureteral stent. Intractable N/V and abd pain Secondary to failed stent placement on 06/14 at [facility] Pt received multiple doses of IV antiemetics and IV analgesics in the ED without resolution of symptoms IV antibiotics, IV analgesics Continue tamsulosin Diet as tolerated Urology consult pending Acute UTI UA from [facility] yesterday positive for UTI Today's UA not acutely infected Labs, including leukocytosis, improved over yesterday's No sepsis: tachycardia secondary to pain; lactic acid WNL Will treat with levofloxacin, started 06/16/2024 Follow urine cultures Asthma unspecified Not in acute exacerbation Continue home inhalers HTN Continue losartan Full Code Attending:?Dr. Bynum DVT Prophylaxis: Lovenox Quality Stroke Does the patient have a stroke diagnosis?: No VTE Prior VTE?: No VTE Risk Level:: Medical - moderate - high VTE Device Contraindication: Treatment Not Indicated VTE Drug Contraindication: N/A - Med Ordered
--- NOTE | 2024-06-17 11:54 | MHC.CM.PN ---
BALBIR DELIVERED. PATIENT LIVES IN AN APARTMENT W/ ADULT SON. FUNCTIONALLY INDEPENDENT. DENIES USE OF DME OR SERVICES. PCP PIERO ALFORD PATIENT PROVIDED COPY OF HCP NAMING HER SON, FRANCESCO, HCA. HCP ALSO OUTLINES PREFERENCES FOR BLOOD PRODUCTS, PATIENT IS [employer]. DP: GOAL IS HOME SELF CARE, SON OR DAUGHTER TO TRANSPORT. CM WILL CONTINUE TO FOLLOW.
--- NOTE | 2024-06-17 13:46 | PM.UROCN ---
History of Present Illness Consult details Consult date: 06/17/24 Narrative: Patti is known to the [facility] urology service, seen in the past for bilateral nephrolithiasis. 49 year old female presented to ED with complaints of left flank pain, reportedly had recent lithotripsy and left sided ureteral stent placement at [facility] 06/14 complicated by UTI and stent migration and self-removal at home. She states she was seen in the ER at 06/15/24 for ongoing pain after the procedure where they found her to have a UTI and prescribed ciprofloxacin. Renal US 06/16/24 here at [facility], Bilateral echogenic stones. Mild left pelvic fullness or hydroureter kidney. No hydronephrosis on the right side. Review of Systems Review of Systems: Yes all other systems are reviewed and are negative [facility] Past Medical History Medical History Liver cyst History of COVID-19 Post-operative nausea and vomiting NAFLD (nonalcoholic fatty liver disease) Morbid obesity with BMI of 40.0-44.9, adult H/O ganglion cyst Essential hypertension NSVT (nonsustained ventricular tachycardia) Vertigo Kidney stones Migraine Carotid artery disease Fibromyalgia HTN (hypertension) Asthma PAC (premature atrial contraction) PVC (premature ventricular contraction) Family History Family History Father Skin cancer Cardiovascular disease Myocardial infarction Hypertension IBS (irritable bowel syndrome) Mother Hypertension Sister Myocardial infarction Hypertension Heartburn Paternal Uncle Colon cancer Paternal Grandmother Colon cancer Surgical History Surgical History History of endometrial ablation Hx of cystoscopy Hx of lithotripsy H/O esophagogastroduodenoscopy H/O colonoscopy History of partial hysterectomy Social History Social History Household Members: Children Housing: Apartment Do you presently have visiting nurse or other home services: No Alcohol intake: current Alcohol intake frequency: holidays/special occasions only Patient Tobacco Use Status: Never used Tobacco Second Hand Smoke Exposure: No Advance Directives Date on File: 08/21/21 service: No Current occupational status: employed Meds Allergies Allergy/AdvReac Type Severity Reaction Status Date / Time cephalexin [CEPHALEXIN] Allergy Severe SWELLING Verified 06/16/24 13:53 clavulanic acid Allergy Severe ANAPHYLAXIS Verified 06/16/24 13:53 [From AUGMENTIN] clindamycin [CLINDAMYCIN] Allergy Severe TONGUE Verified 06/16/24 13:53 SWELLING codeine Allergy Severe PASSED OUT Verified 06/16/24 13:53 influenza virus vaccine, Allergy Severe ANAPHYLAXIS Verified 06/16/24 13:53 specific [FLU VACCINE] perflutren [From Definity] Allergy Severe hives/anaph Verified 06/16/24 13:53 ylaxis seafood Allergy Severe Anaphylaxis Verified 06/16/24 13:53 fluconazole Allergy Intermediate HIVES Verified 06/16/24 13:53 gentamicin [GENTAMICIN] Allergy Intermediate RASH Verified 06/16/24 13:53 Iodinated Contrast Media Allergy Intermediate Hives Verified 06/16/24 13:53 [IV Contrast Dye] oxycodone Allergy Intermediate SOB Verified 06/16/24 13:53 sulfamethoxazole Allergy Mild swelling Verified 06/16/24 13:53 [From Bactrim] trimethoprim [From Bactrim] Allergy Mild swelling Verified 06/16/24 13:53 pineapple Allergy Anaphylaxis Verified 06/16/24 13:53 scopolamine AdvReac Severe Vomiting Verified 06/16/24 13:53 midazolam AdvReac Intermediate Vomiting Verified 06/16/24 13:53 Active Medications: Current Medications Acetaminophen (Acetaminophen 325 Mg Tablet) 650 mg PO Q6H PRN PRN Reason: Pain, Mild 1-3,fever,headache Albuterol Sulfate (Albuterol Sulfate 90 Mcg 8 Gm Inhaler) 2 puff INHALE Q4H PRN PRN Reason: wheezing Calcium Carbonate (Calcium Carbonate 750 Mg Tab.Chew) 750 mg PO Q4H PRN PRN Reason: Heartburn Enoxaparin Sodium (Enoxaparin Sodium 40 Mg/0.4 Ml Syringe) 40 mg SUBCUT Q24H [facility] Last Admin: 06/16/24 21:31 Dose: 40 mg Hydromorphone HCl (Hydromorphone Hcl 1 Mg/Ml Syringe) 1 mg IVPUSH Q4H PRN; Protocol PRN Reason: Pain, Severe (Pain Scale 7-10) Levofloxacin (Levaquin) 750 mg in 150 mls @ 100 mls/hr IV Q24H [facility] Ketorolac Tromethamine (Ketorolac Tromethamine 30 Mg/Ml Vial) 30 mg IVPUSH Q6H PRN PRN Reason: Pain, Moderate(Pain Scale 4-6) Stop: 06/18/24 21:04 Last Admin: 06/17/24 07:55 Dose: 30 mg Losartan Potassium (Losartan Potassium 50 Mg Tablet) 50 mg PO DAILY [facility]; Protocol Last Admin: 06/17/24 09:20 Dose: 50 mg Magnesium Hydroxide (Milk Of Magnesia 30 Ml Oral.Susp) 30 ml PO DAILY PRN PRN Reason: Constipation Magnesium Oxide (Magnesium Oxide 400 Mg Tablet) 300 mg PO DAILY [facility] Last Admin: 06/17/24 09:20 Dose: 300 mg Melatonin (Melatonin 3 Mg Tablet) 6 mg PO BEDTIME PRN PRN Reason: Insomnia Multivitamins/Vitamin C (Multivitamin Tablet) 1 tab PO DAILY [facility] Last Admin: 06/17/24 09:19 Dose: 1 tab Ondansetron HCl (Ondansetron Hcl 4 Mg/2 Ml Vial) 4 mg IVPUSH Q8H PRN PRN Reason: Nausea and Vomiting Phenazopyridine HCl (Phenazopyridine Hcl 200 Mg Tablet) 200 mg PO TID [facility] Last Admin: 06/17/24 09:19 Dose: 200 mg Sodium Chloride (0.9 % Sodium Chloride Flush 3 Ml Syringe) [facility] Admin: 06/17/24 07:06 Dose: Not Given Tamsulosin HCl (Tamsulosin Hcl 0.4 Mg Capsule) 0.4 mg PO DAILY [facility] Last Admin: 06/17/24 09:19 Dose: 0.4 mg Home Medications ?Medication ?Instructions ?Recorded ?Confirmed ?Last Taken ?Type losartan 50 mg tablet 50 mg PO DAILY 04/24/22 06/16/24 Unknown History albuterol sulfate 90 mcg/actuation 2 puff inhalation Q4H PRN wheezing 08/06/22 06/16/24 Unknown History aerosol inhaler ibuprofen 800 mg tablet 800 mg PO Q8H PRN Pain 08/19/22 06/16/24 Unknown History tamsulosin 0.4 mg capsule (Flomax) 0.4 mg PO DAILY 06/28/23 06/16/24 Unknown History ciprofloxacin HCl 500 mg tablet 500 mg PO BID 06/16/24 06/16/24 Unknown History hydromorphone 2 mg tablet 2 mg PO BID PRN Severe Pain (Scale 06/16/24 06/16/24 Unknown History Score 7-10) magnesium 200 mg tablet 300 mg PO DAILY 06/16/24 06/16/24 Unknown History phenazopyridine 200 mg tablet 200 mg PO TID 06/16/24 06/16/24 Unknown History phentermine 15 mg capsule 15 mg PO DAILY 06/16/24 06/16/24 Unknown History vitamin B complex 1 tab PO DAILY 06/16/24 06/16/24 Unknown History Physical Exam Vital Signs: Vital Signs: Last Vital Signs Temp 98 F 06/17/24 12:00 Pulse 95 06/17/24 12:00 Resp 16 06/17/24 12:00 BP 139/67 06/17/24 12:00 Pulse Ox 95 06/17/24 12:00 O2 Del Method Room Air 06/17/24 12:00 BMI result Body Mass Index 35.7 Results Labs 06/17/24 03:46 06/17/24 03:46 Labs: Abnormal lab results 06/16/24 06/16/24 06/17/24 Range/Units 14:15 16:36 03:46 WBC 12.7 H (4.8-10.8) X10*3/uL RBC 4.06 L (4.20-5.50) X10*6/uL Hgb 11.7 L (12.0-16.0) g/dl Hct 34.7 L (37.0-47.0) % Immature Gran % (Auto) 0.8 H (0.0-0.4) % Abs Immat Gran (auto) 0.10 H (0.00-0.03) X10*3/uL Chloride 110 H 109 H (96-108) mmol/L BUN 17 H (9-16) mg/dL ALT 40 H (0-31) U/L Alkaline Phosphatase 125 H (39-117) U/L Urine Color [place] A Urine Protein 100 (2+) H (Neg-Trace) mg/dL Urine Glucose (UA) 100 H (Negative) mg/dL Urine RBC >20 H (0-2) /HPF Short CBC 06/16/24 06/17/24 Range/Units 14:15 03:46 WBC 12.7 H 9.3 (4.8-10.8) X10*3/uL Hgb 12.8 11.7 L (12.0-16.0) g/dl Hct 37.5 34.7 L (37.0-47.0) % Plt Count 216 189 (160-400) X10*3/uL BMP 06/16/24 06/17/24 14:15 03:46 Sodium 143 141 Potassium 3.3 3.8 Chloride 110 H 109 H Carbon Dioxide 23 24 BUN 17 H 13 Creatinine 0.87 0.74 Calcium 8.8 8.8 Liver Function 06/16/24 Range/Units 14:15 Total Bilirubin 0.7 (0.0-1.0) mg/dL AST 25 (5-31) U/L ALT 40 H (0-31) U/L Alkaline Phosphatase 125 H (39-117) U/L Albumin 3.9 (3.5-5.0) g/dL Urine 06/16/24 Range/Units 16:36 Urine Color [place] A Urine Appearance Clear Urine pH 7.0 (5.0-9.0) Ur Specific [place] 1.020 (1.005-1.025) Urine Protein 100 (2+) H (Neg-Trace) mg/dL Urine Glucose (UA) 100 H (Negative) mg/dL Imaging US - kidney/bladder: report reviewed and image reviewed Additional studies: Date of Service: 06/16/24 US RETROPERITONEAL LIMITED (RENAL ONLY) CLINICAL INFORMATION: Severe left flank pain COMPARISON: None available. TECHNIQUE: Routine ultrasound imaging of kidneys was performed FINDINGS: RIGHT KIDNEY: 10.3 x 4.1 x 3.2 cm (SAG x AP x TRV). The kidney is normal in size, contour, and echogenicity. Renal cortical thickness is normal. There are a few echogenic foci. 1. Upper pole stone measures 0.4 x 0.1 cm. 2. Mid pole stone measures 0.4 x 0.2 cm. 3. Mid pole stone measuring 0.3 x 0.2 x 0.3 cm. There is no caliectasis or hydronephrosis. LEFT KIDNEY: 11.1 x 5.4 x 4.5 cm. cm (SAG x AP x TRV). The kidney is normal in size, contour, and echogenicity. Renal cortical thickness is normal. There are a few echogenic stones. 1. Upper pole stone measures 0.4 x 0.2 x 0.3 cm. 2. Mid pole stone measures 0.3 x 0.2 cm. There is mild pelvic fullness/mild hydronephrosis. The bladder was not imaged. IMPRESSION: Bilateral echogenic stones. There is mild pelvic fullness or hydroureter kidney. No hydronephrosis on the right side... Assessment and Plan (1) Acute flank pain: Status: Acute (2) UTI (urinary tract infection): Status: Acute (3) Bilateral kidney stones: Status: Acute Plan Clinically improving. WBC is normal today, blood c/s are pending. Renal US--no significant hydronephrosis or evidence of obstruction. At this time, no acute urological intervention indicated at this time. Pyridium 100mg tid prn with meals for dysuria or difficulty voiding. FU as outpatient. Procedures Date of Service Date of Service: 06/17/24
[2024-06-17] MEDS: Acetaminophen 325 MG TABLET 650 MG PO (14:33)
[2024-06-17] MEDS: 0.9 % Sodium Chloride Flush 3 ML SYRINGE IVFLUSH ×2 (17:22→20:40)
[2024-06-17] MEDS: levoFLOXacin/D5W 750 MG/150 ML PIGGYBACK 100 MG IV (17:22)
--- NOTE | 2024-06-17 19:18 | PC.NURSE ---
Patient alert and oriented, RA, independent in the room, able to void in the bathroom, reports no BM. Medicated for pain with Toradol, Tylenol for THAKUR with good effect. Patient c/o burning/dryness in bilat nostrils, saline nasal spry ordered for patient.
[2024-06-17] MEDS: Enoxaparin Sodium 40 MG/0.4 ML SYRINGE SUBCUT (20:51)
[2024-06-17] MEDS: Prochlorperazine Edisylate 10 MG/2 ML VIAL 5 MG IVPUSH (21:59)
[2024-06-18 03:53] VITALS: BP 112/70; PULSE 85; RESP 16; TEMP 36.7; O2SAT 94
[2024-06-18 07:33] VITALS: BP 110/61; PULSE 87; RESP 18; TEMP 36.4; O2SAT 95
--- NOTE | 2024-06-18 07:35 | P.DS_ITS ---
DS: Providers Provider Date of Service: 06/18/24 Date of admission: 06/16/24 20:59 Date of discharge: 06/18/24 Primary care physician: Jane Dao NP Consults: 06/16/24 21:41 Consult to Urology Routine Consulting Provider: [facility] Reason for consultation: Failed left ureteral stent at on 06/14 DS: Diagnosis Discharge Diagnosis (1) Acute flank pain: Status: Acute (2) UTI (urinary tract infection): Status: Acute (3) Bilateral kidney stones: Status: Acute DS: Summary Hospital Course Hospital Course: History and physical as per admitting provider. Pt is a 49-year-old female with a PMH significant for?asthma, HTN, and nephrolithiasis who presents to the ED for evaluation of?abdominal and flank pain. Pt reports has had some recent difficulty with left nephrolithiasis with 5 mm stone. Scheduled outpatient lithotripsy and left-sided ureteral stent placement at [facility] 2 days prior on 06/14. Reports procedure initially went well, until Wednesday when she started developing left-sided flank and abdominal pain. Yesterday pt presented to [facility] ED for evaluation and was diagnosed with UTI and discharged home on ciprofloxacin p.o.. That night pt noticed that her stent felt like it was migrating down and she noticed a little bit sticking out of her urethra. Earlier today noticed stent had migrated even further. Called [facility] in the directed her to remove it herself, place it in a bag, and bring it to a follow up office visit next week. Pt reports approximately 30-60 minutes after stent removal she developed severe, intractable abdominal pain and intractable nausea and vomiting. Despite multiple antiemetics and IV analgesics in the ED, patient's symptoms persist and she is actively vomiting at time of interview and exam. Reports left-sided flank and lower abdominal pain occasionally radiates to the right. No SOB or difficulty breathing. Denies chest pain/pressure, palpitations. In the ED pt was tachycardic up to 97, and hypertensive up to 175/104. Labs were significant for leukocytosis 12.7, AST 40, and alk-phos 125, otherwise grossly unremarkable and around baseline for pt. Stable H&H. No bandemia. No significant electrolyte abnormalities. Renal function WNL. Lactic acid WNL. UA does not appear grossly infected. Bilateral renal ultrasound showed bilateral echogenic stones, mild pelvic fullness or hydroureter kidney, and negative for hydronephrosis on the right side. EKG demonstrated normal sinus rhythm similar to prior. Pt was treated with ketorolac, IVF, ondansetron, oxybutynin, metoclopramide, hydromorphone, and levofloxacin. Pt will be admitted to the hospital under observation for maty atment of intractable N/V and left-sided flank and pelvic pain secondary to failed ureteral stent. Intractable N/V and abd pain Secondary to failed stent placement on 06/14 at [facility] Pt received multiple doses of IV antiemetics and IV analgesics in the ED without resolution of symptoms IV antibiotics, IV analgesics Continue tamsulosin Diet as tolerated Urology consult pending Acute UTI UA from [facility] yesterday positive for UTI Today's UA not acutely infected Labs, including leukocytosis, improved over yesterday's No sepsis: tachycardia secondary to pain; lactic acid WNL Will treat with levofloxacin, started 06/16/2024 Follow urine cultures Asthma unspecified Not in acute exacerbation Continue home inhalers HTN Continue losartan Physical Exam Vital Signs: Vital Signs: Last Vital Signs Temp 97.5 F 06/18/24 07:33 Pulse 87 06/18/24 07:33 Resp 18 06/18/24 07:33 BP 110/61 06/18/24 07:33 Pulse Ox 95 06/18/24 07:33 O2 Del Method Room Air 06/18/24 07:33 BMI result Body Mass Index 35.7 DS: Data Data Completed and Pending Completed studies during hospitalization [Text1]: Procedures Dilation of Right Ureter with Intraluminal Device, Via Natural or Artificial Opening Endoscopic (04/27/22) Extirpation of Matter from Right Ureter, Via Natural or Artificial Opening Endoscopic (04/27/22) Fluoroscopy of Left Kidney, Ureter and Bladder (09/22/21) Fluoroscopy of Right Kidney, Ureter and Bladder (04/27/22) Fragmentation in Left Ureter, Via Natural or Artificial Opening Endoscopic (09/22/21) Fragmentation in Right Ureter, Via Natural or Artificial Opening Endoscopic (12/18/21) Labs on day of discharge: Preliminary micro results at discharge 06/16/24 16:36 Blood Culture - Preliminary Blood - Venous No growth after 24 hours. 06/16/24 16:36 Blood Culture - Preliminary Blood - Venous No growth after 24 hours. Discharge Plan Discharge Anticipated Discharge Date/Time: 06/18/24 07:33 Patient Disposition: Home, Self-Care Discharge Diagnosis: Intractable nausea and vomiting Referrals: Jane Dao NP [Primary Care Provider] - 1 Week Discharge Medications: Continued albuterol sulfate 90 mcg/actuation HFA aerosol inhaler 2 puff inhalation Q4H PRN (Reason: wheezing) phenazopyridine 200 mg tablet 200 mg PO TID phentermine 15 mg capsule 15 mg PO DAILY ciprofloxacin HCl 500 mg tablet 500 mg PO BID hydromorphone 2 mg tablet 2 mg PO BID PRN (Reason: Severe Pain (Scale Score 7-10)) vitamin B complex Tablet 1 tab PO DAILY magnesium 200 mg Tablet 300 mg PO DAILY losartan 50 mg tablet 50 mg PO DAILY ibuprofen 800 mg tablet 800 mg PO Q8H PRN (Reason: Pain) tamsulosin [Flomax] 0.4 mg capsule 0.4 mg PO DAILY Diet: Advance to usual diet Activity on Discharge: As tolerated Stand Alone Forms: Patient Portal Discharge page Print Language: [place] [facility] Concerns: Intractable nausea and vomiting Plan of Treatment: Follow-up with primary care provider as needed Take all medications as prescribed Assessment: See discharge summary
[2024-06-18 08:20] VITALS: BP 110/61
[2024-06-18] MEDS: Phenazopyridine HCL 200 MG TABLET PO (08:20)
[2024-06-18] MEDS: Losartan Potassium 50 MG TABLET PO (08:20)
[2024-06-18] MEDS: Tamsulosin HCL 0.4 MG CAPSULE PO (08:20)
[2024-06-18] MEDS: Magnesium Oxide 400 MG TABLET 300 MG PO (08:20)
[2024-06-18] MEDS: Multivitamin TABLET 1 TAB PO (08:20)
[2024-06-18] MEDS: 0.9 % Sodium Chloride Flush 3 ML SYRINGE IVFLUSH (08:22)
--- NOTE | 2024-06-18 08:46 | PM.DS ---
DS: Providers Provider Date of Service: 06/18/24 Date of admission: 06/16/24 20:59 Date of discharge: 06/18/24 Primary care physician: Jane Dao NP Consults: 06/16/24 21:41 Consult to Urology Routine Consulting Provider: [facility] [place] [facility] Reason for consultation: Failed left ureteral stent at on 06/14 DS: Diagnosis Discharge Diagnosis (1) Acute flank pain: Status: Acute (2) UTI (urinary tract infection): Status: Acute (3) Bilateral kidney stones: Status: Acute DS: Summary Hospital Course Hospital Course: History and physical as per admitting provider. Pt is a 49-year-old female with a PMH significant for?asthma, HTN, and nephrolithiasis who presents to the ED for evaluation of?abdominal and flank pain. Pt reports has had some recent difficulty with left nephrolithiasis with 5 mm stone. Scheduled outpatient lithotripsy and left-sided ureteral stent placement at [facility] 2 days prior on 06/14. Reports procedure initially went well, until Wednesday when she started developing left-sided flank and abdominal pain. Yesterday pt presented to [facility] ED for evaluation and was diagnosed with UTI and discharged home on ciprofloxacin p.o.. That night pt noticed that her stent felt like it was migrating down and she noticed a little bit sticking out of her urethra. Earlier today noticed stent had migrated even further. Called [facility] in the directed her to remove it herself, place it in a bag, and bring it to a follow up office visit next week. Pt reports approximately 30-60 minutes after stent removal she developed severe, intractable abdominal pain and intractable nausea and vomiting. Despite multiple antiemetics and IV analgesics in the ED, patient's symptoms persist and she is actively vomiting at time of interview and exam. Reports left-sided flank and lower abdominal pain occasionally radiates to the right. No SOB or difficulty breathing. Denies chest pain/pressure, palpitations. In the ED pt was tachycardic up to 97, and hypertensive up to 175/104. Labs were significant for leukocytosis 12.7, AST 40, and alk-phos 125, otherwise grossly unremarkable and around baseline for pt. Stable H&H. No bandemia. No significant electrolyte abnormalities. Renal function WNL. Lactic acid WNL. UA does not appear grossly infected. Bilateral renal ultrasound showed bilateral echogenic stones, mild pelvic fullness or hydroureter kidney, and negative for hydronephrosis on the right side. EKG demonstrated normal sinus rhythm similar to prior. Pt was treated with ketorolac, IVF, ondansetron, oxybutynin, metoclopramide, hydromorphone, and levofloxacin. Pt will be admitted to the hospital under observation for treatment of intractable N/V and left-sided flank and pelvic pain secondary to failed ureteral stent. 49-year-old woman treated for intractable nausea and vomiting and abdominal pain. She had a failed stent placement at [facility] on 06/14/2024. She received multiple doses of antiemetics and analgesics. She was given empiric antibiotics as she had an acute UTI at [facility]. No sepsis noted. Continue tamsulosin, seen and evaluated by Urology with no recommendation for procedures at this time. She can follow up with Urology outpatient. Blood culture has remained negative. Asthma unspecified. No exacerbation during hospitalization. Continue home medications HTN. Continue losartan Time Attestation Discharge Coordination Time (in mins): 42 Quality: Safe Use of Opioids Does Pt have an Active Cancer Diagnosis on the Problem List?: No Quality: Stroke Does the patient have a stroke diagnosis?: No Physical Exam Vital Signs: Vital Signs: Last Vital Signs Temp 97.5 F 06/18/24 07:33 Pulse 87 06/18/24 07:33 Resp 18 06/18/24 07:33 BP 110/61 06/18/24 08:20 Pulse Ox 95 06/18/24 07:33 O2 Del Method Room Air 06/18/24 07:33 BMI result Body Mass Index 35.7 Appearing in no acute distress head is normocephalic atraumatic eyes pupils are PERRLA sclera is anicteric mouth throat mucous membranes are intact and moist neck is supple no lymphadenopathy, no JVD noted lung sounds are clear to auscultation heart regular rate rhythm, clear S1, S2 positive bowel sounds, abdomen is soft, nontender neuro patient is alert x3, no focal deficits DS: Data Data Completed and Pending Completed studies during hospitalization [Text1]: Procedures Dilation of Right Ureter with Intraluminal Device, Via Natural or Artificial Opening Endoscopic (04/27/22) Extirpation of Matter from Right Ureter, Via Natural or Artificial Opening Endoscopic (04/27/22) Fluoroscopy of Left Kidney, Ureter and Bladder (09/22/21) Fluoroscopy of Right Kidney, Ureter and Bladder (04/27/22) Fragmentation in Left Ureter, Via Natural or Artificial Opening Endoscopic (09/22/21) Fragmentation in Right Ureter, Via Natural or Artificial Opening Endoscopic (12/18/21) Labs on day of discharge: Preliminary micro results at discharge 06/16/24 16:36 Blood Culture - Preliminary Blood - Venous No growth after 24 hours. 06/16/24 16:36 Blood Culture - Preliminary Blood - Venous No growth after 24 hours. Discharge Plan Discharge Anticipated Discharge Date/Time: 06/18/24 07:33 Patient Disposition: Home, Self-Care Discharge Diagnosis: Intractable nausea and vomiting Referrals: Jane Dao NP [Primary Care Provider] - 1 Week Discharge Medications: New ondansetron 4 mg tablet,disintegrating 4 mg PO Q8H PRN (Reason: nausea and vomiting) Qty: 15 0RF levofloxacin 500 mg tablet 500 mg PO DAILY Qty: 2 0RF Continued albuterol sulfate 90 mcg/actuation HFA aerosol inhaler 2 puff inhalation Q4H PRN (Reason: wheezing) phenazopyridine 200 mg tablet 200 mg PO TID phentermine 15 mg capsule 15 mg PO DAILY ciprofloxacin HCl 500 mg tablet 500 mg PO BID hydromorphone 2 mg tablet 2 mg PO BID PRN (Reason: Severe Pain (Scale Score 7-10)) vitamin B complex Tablet 1 tab PO DAILY magnesium 200 mg Tablet 300 mg PO DAILY losartan 50 mg tablet 50 mg PO DAILY ibuprofen 800 mg tablet 800 mg PO Q8H PRN (Reason: Pain) tamsulosin [Flomax] 0.4 mg capsule 0.4 mg PO DAILY Discharge Orders: Discharge Order (Routine); Ordered 06/18/24 Ordered By: Leanna Cho Diet: Advance to usual diet Activity on Discharge: As tolerated Stand Alone Forms: Patient Portal Discharge page Print Language: Yakut Care Plan Goals: Follow up with urology as needed Health Concerns: Intractable nausea and vomiting Plan of Treatment: Follow-up with primary care provider as needed Take all medications as prescribed Assessment: See discharge summary
--- NOTE | 2024-06-18 08:48 | MHC.CM.PN ---
Patient medically cleared for dc home self care via private transport.
[2024-06-18 10:08] VITALS: BP 148/92; PULSE 102; RESP 19; TEMP 36.3; O2SAT 98
== END 2024-06-18 10:09 | disposition home or self-care (01) ==
LOC: HO.ED 14:38 → HO.EDOVER 21:18 → HO.S3 06-17 07:56
PROVIDERS: Physician Assistant; Admitting Provider Student in an Organized Health Care Education/Training Program; Emergency Provider Emergency Medicine; PCP Nurse Practitioner Family; Visit Provider Nurse Practitioner Acute Care
DX: N39.0 Urinary tract infection, site not specified (principal); R11.2 Nausea with vomiting, unspecified; N20.0 Calculus of kidney; R10.9 Unspecified abdominal pain; R07.9 Chest pain, unspecified; I10 Essential (primary) hypertension; J45.909 Unspecified asthma, uncomplicated; I25.10 Atherosclerotic heart disease of native coronary artery without angina pectoris; Z79.899 Other long term (current) drug therapy
CPT/HCPCS: 36415; 76775; 80048; 80053; 81001; 83605; 85025; 85027; 87040; 93005; 96361; 96365; 96366; 96372; 96375; 96376; 99221; 99285; J0737; J1171; J1650; J1885; J1956; J2405; J2765; J7120

== ENCOUNTER → 2024-06-16 15:23 | Outpatient (BNV) | payer BC, SELFPAY | PROVIDERS: Emergency Provider Emergency Medicine; PCP Nurse Practitioner Family; Visit Provider Radiology Diagnostic Radiology | DX: R10.12 Left upper quadrant pain (principal) | CPT/HCPCS: 76775 ==

== ENCOUNTER → 2024-06-16 18:14 | Outpatient (BNV) | payer BC, SELFPAY | PROVIDERS: Admitting Provider Student in an Organized Health Care Education/Training Program; Emergency Provider Emergency Medicine; PCP Nurse Practitioner Family; Visit Provider Internal Medicine | DX: R07.9 Chest pain, unspecified (principal) | CPT/HCPCS: 93010 ==

== ENCOUNTER → 2024-06-16 20:59 | Outpatient (BNV) | payer BC, SELFPAY | PROVIDERS: Admitting Provider Student in an Organized Health Care Education/Training Program; Emergency Provider Emergency Medicine; PCP Nurse Practitioner Family; Visit Provider Urology | DX: R10.9 Unspecified abdominal pain (principal); N39.0 Urinary tract infection, site not specified; N20.0 Calculus of kidney | CPT/HCPCS: 99222 ==

== ENCOUNTER → 2024-06-16 20:59 | Outpatient (BNV) | payer BC, SELFPAY | PROVIDERS: Admitting Provider Student in an Organized Health Care Education/Training Program; Emergency Provider Emergency Medicine; PCP Nurse Practitioner Family; Visit Provider Nurse Practitioner Acute Care | DX: R10.9 Unspecified abdominal pain (principal); N39.0 Urinary tract infection, site not specified; N20.0 Calculus of kidney | CPT/HCPCS: 99222; 99232; 99239 ==

== ENCOUNTER 2024-12-08 09:07 | Outpatient (AMB) | payer BC, SELFPAY ==
--- OUTSIDE RECORDS SUMMARY | 2015-07-11 | XMS_ITS | Encounter Summary ---
Author Organization 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 Wish to be (Past 1 Month) No 05/16/2021 12:27 PM Armando Merritt RN 2. Non-Specific Active Suicidal Thoughts (Past 1 Month) No 05/16/2021 12:27 PM Armando Merritt RN 6. Suicidal Behavior (Lifetime) No 05/16/2021 12:27 PM Armando Merritt RN documented as of this encounter Plan of Treatment Upcoming Encounters Date Type Department Care Team (Late st Contact Info) Description 02/01/2025 8:00 AM EDT Appointment [facility], Nuclear Medicine [address] [address] Desmond Acosta MD [address] [place] [address] [email or web address] documented as of this encounter Procedures Procedure Name Priority Date/Time Associated Diagnosis Comments XR CHEST OUTSIDE (NO INTERPRETATION) Routine 07/11/2015 12:00 AM EDT documented in this encounter Results * XR Chest Outside (No Interpretation) (07/11/2015 12:00 AM EDT) Narrative [facility] [place]G INTERFACES - 07/23/2015 9:08 AM EDT This study is for PACS storage only and not for interpretation. Procedure Note SYSTEMGENERATED, DOCUMENTATION - 07/23/2015 This study is for PACS storage only and not for interpretation. us Laci Gabriel MD IMG OUTSIDE IMAGING W/OUT INTERPRETATION Final Result [facility] [place] IMG INTERFACES documented in [...] It is not the complete legal health record.[facility]
--- OUTSIDE RECORDS SUMMARY | 2015-07-11 00:15 | XMS_ITS | Encounter Summary ---
Author Organization [facility] Address [address] [place] [address] Phone Care Team Providers Care Fourdrinier Machine Operator Name Role Phone Unavailable Primary Care Provider Unavailabl e Reason for Visit * MRI/CAT Scan - Closed Specialty Diagnoses / Procedures Referred By Contac t Referred To Contact Radiology Procedures MRI Brain Outside (No Interpretation) Laci Gabriel MD [address] [place] [address] Phone: tel: fax: mailto:[email or web address] Referral ID Status Reason Start Date Expiration Date Visits Re quested Visits Authorized [id number] Closed 07/23/2015 07/22/2016 1 1 Encounter Details Date Type Department Care Team ([facility] st Contact Info) Description 07/11/2015 12:15 AM EDT Hospital Encounter [facility] General Imaging [address] [place] [address] Laci Gabriel MD [address] [place] [address] [email or web address] Social History Tobacco Use Types Packs/Day Years [...] 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 Not on file documented as of this encounter Functional Status * Calculated C-SSRS Risk Score (Lifetime/Recent) Answer Date of Assessment Author No Risk Indicated 05/16/2021 12:27 PM Carolyn Meas RN * [place] Suicide Severity Rating Scale (Screener/Recent Self-Report) Question [...] Info) Description 02/01/2025 8:00 AM EDT Appointment [facility], Nuclear Medicine - [address] [address] Desmond Acosta MD [address] [place] [address] [email or web address] u documented as of this encounter Procedures Procedure Name Priority Date/Time Associated Diagnosis Comments MRI BRAIN OUTSIDE (NO INTERPRETATION) Routine 07/11/2015 12:15 AM EDT documented in this encounter Results * MRI Brain Outside (No Interpretation) (07/11/2015 12:15 AM EDT) Narrative [facility] [place] [facility] documented in this encounter Visit [...] It is not the complete legal health record.[facility]
--- OUTSIDE RECORDS SUMMARY | 2015-07-11 00:30 | XMS_ITS | Encounter Summary ---
Author Organization [facility] Address [address] [place] [address] Phone Care Team Providers Care Director Of Psychology Name Role Phone Unavailable Primary Care Provider Unavailabl e Reason for Visit * MRI/CAT Scan - Closed Specialty Diagnoses / Procedures Referred By Contac t Referred To Contact Radiology Procedures MRI Brain Outside (No Interpretation) Laci Gabriel MD [address] [place] [address] Phone: tel: fax: mailto:[email or web address] Referral ID Status Reason Start Date Expiration Date Visits Re quested Visits Authorized [id number] Closed 07/23/2015 07/22/2016 1 1 Encounter Details Date Type Department Care Team ([facility] st Contact Info) Description 07/11/2015 12:30 AM EDT Hospital Encounter [facility] General Imaging [address] [place] [address] Laci Gabriel MD [address] [place] [address] [email or web address] Social History Tobacco Use Types [...] 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 Not on file documented as of this encounter Functional Status * Calculated C-SSRS Risk Score (Lifetime/Recent) Answer Date of Assessment Author No Risk Indicated 05/16/2021 12:27 PM Carolyn Mesa RN * [place] Suicide Severity Rating Scale (Screener/Recent Self-Report) Question [...] Info) Description 02/01/2025 8:00 AM EDT Appointment [facility], Nuclear Medicine - [address] [address] Desmond Acosta MD [address] [place] [address] [email or web address] u documented as of this encounter Procedures Procedure Name Priority Date/Time Associated Diagnosis Comments MRI BRAIN OUTSIDE (NO INTERPRETATION) Routine 07/11/2015 12:30 AM EDT documented in this encounter Results * MRI Brain Outside (No Interpretation) (07/11/2015 12:30 AM EDT) Narrative [facility] [place] [place] - 07/23/2015 9:09 AM EDT This study is for PACS storage only and not for interpretation. Procedure Note SYSTEMGENERATED, DOCUMENTATION - 07/23/2015 This study is for PACS storage only and not for interpretation. Laci Gabriel MD IMG OUTSIDE IMAGING W/OUT INTERPRETATION Final Result [facility] documented in this encounter Visit [...] It is not the complete legal health record.[facility]
--- NOTE | 2024-12-08 09:09 | MHC.OFFVIS ---
Vital Signs 12/08/24 09:22 Height 5 ft 2 in Weight 206 lb BMI 37.7 BP 133/80 Blood Pressure Location Lt brachial Position Sitting Pulse 85 Pulse Oximetry (%) 98 Oxygen Delivery Method Room Air Intake Visit Reasons: EGD/Nanci pt Intake Note: Patient complex follow up for EGD results/Nanci patient garrick was 06/28/2023 and EGD 04/23/2023 with one yr EGD recall. Patient denies any GI issues. Rn Midwife Required: No Accompanied by: Self / Same As Patient Allergies cephalexin (CEPHALEXIN) Allergy (Severe, Verified 12/08/24 09:15) SWELLING clavulanic acid (From AUGMENTIN) Allergy (Severe, Verified 12/08/24 09:15) ANAPHYLAXIS clindamycin (CLINDAMYCIN) Allergy (Severe, Verified 12/08/24 09:15) TONGUE SWELLING codeine Allergy (Severe, Verified 12/08/24 09:15) PASSED OUT influenza virus vaccine, specific (FLU VACCINE) Allergy (Severe, Verified 12/08/24 09:15) ANAPHYLAXIS perflutren (From Definity) Allergy (Severe, Verified 12/08/24 09:15) hives/anaphylaxis seafood Allergy (Severe, Verified 12/08/24 09:15) Anaphylaxis fluconazole Allergy (Intermediate, Verified 12/08/24 09:15) HIVES gentamicin (GENTAMICIN) Allergy (Intermediate, Verified 12/08/24 09:15) RASH Iodinated Contrast Media (IV Contrast Dye) Allergy (Intermediate, Verified 12/08/24 09:15) Hives oxycodone Allergy (Intermediate, Verified 12/08/24 09:15) SOB sulfamethoxazole (From Bactrim) Allergy (Mild, Verified 12/08/24 09:15) swelling trimethoprim (From Bactrim) Allergy (Mild, Verified 12/08/24 09:15) swelling pineapple Allergy (Verified 12/08/24 09:15) Anaphylaxis scopolamine Adverse Reaction (Severe, Verified 12/08/24 09:15) Vomiting midazolam Adverse Reaction (Intermediate, Verified 12/08/24 09:15) Vomiting Medication List - Last Reconciled 12/08/24 by Hiral Millard MD albuterol sulfate 90 mcg/actuation 2 puffs inhalation Q4H PRN hydromorphone 2 mg PO BID PRN ibuprofen 800 mg PO Q8H PRN losartan 50 mg PO DAILY magnesium 300 mg PO DAILY ondansetron 4 mg PO Q8H PRN tamsulosin (Flomax) 0.4 mg PO DAILY vitamin B complex 1 tab PO DAILY HPI HPI EGD/Nanci pt: Details: GI clinic visit for this 49 YF for FU of gastric and colon polyps Patient was previously followed by Nanci TAN TODAY'S VISIT: Patient complex follow up for EGD results/Nanci patient garrick was 06/28/2023 and EGD 04/23/2023 with one yr EGD recall. Patient denies symptoms of heartburn, dysphagia, nausea, vomiting, change in appetite. Admits to wt gain and scheduled to enroll in a wt management program next week. Denies recent change in bowel habits, constipation, diarrhea, black stools or rectal bleeding. Patient denies major cardiac or pulmonary problems, loud snoring or sleep apnea - snores when she is tired Denies problems with anesthesia in the past - propofol works, has vomiting with versed. Denies being on chronic anticoagulation. Strong family history of colon, pancreatic and liver cancer. Genetic testing showed high risk for colon and endometrial cancer [place]ologist [place] and planning to have GB removed next year due to wall thickening LABS IN [facility] : Reviewed IMAGING STUDIES: 2022 ABD US SHOWED: Sonographic appearance consistent with diffuse hepatic steatosis. Possible adenomyomatosis of the gallbladder. 5 mm and 4 mm nonobstructing right renal calculi. ENDOSCOPIC STUDIES: 04/2023 EGD SHOWED: STOMACH: Multiple 5 to 10 mm benign appearing polyps in the gastric body - seven of the larger polyps were removed with a cold snare. Plan: Await pathology results. If biopsies show adenomatous polyps, schedule a FU EGD in 1 year. Patient has an appointment on 05/13/23 in the GI Clinic with BRITNEY Navarro. Above findings were reviewed with the patient Gastric Polyps handout was given in the discharge area PAST GI HISTORY BY REVIEW OF MEDICAL RECORDS: 06/28/23 last follow-up appointment with BRITNEY Rothman: 48 y/o female f/u after procedure in April- she missed May appt- due to illness to discuss U/S 02/2023- [facility]- showing GB polyp-She has appoint ment 09/06 with general surgeon However previous U/S showed multiple liver cysts- She read about carrageenan-that cause inflammation- she changed to organic milk with much improvement No nausea, vomiting hematemesis, hematochezia fever or chills best modality for liver cysts- seeing surgeon [phone] [id number] [facility] EGD- w/ sergio Colon/EGD- 3 years- Liver u/s [facility] Medical History Liver cyst History of COVID-19 Post-operative nausea and vomiting NAFLD (nonalcoholic fatty liver disease) Morbid obesity with BMI of 40.0-44.9, adult H/O ganglion cyst Essential hypertension NSVT (nonsustained ventricular tachycardia) Vertigo Kidney stones Migraine Carotid artery disease Fibromyalgia HTN (hypertension) Asthma PAC (premature atrial contraction) PVC (premature ventricular contraction) Surgical History History of endometrial ablation Hx of cystoscopy Hx of lithotripsy H/O esophagogastroduodenoscopy H/O colonoscopy History of partial hysterectomy Family History Father Skin cancer Cardiovascular disease Myocardial infarction Hypertension IBS (irritable bowel syndrome) Mother Hypertension Sister Myocardial infarction Hypertension Heartburn Paternal Uncle Colon cancer Paternal Grandmother Colon cancer Social History Household Members: Children Housing: Apartment Do you presently have visiting nurse or other home services: No Alcohol intake: current Alcohol intake frequency: holidays/special occasions only Patient Tobacco Use Status: Never used Tobacco Second Hand Smoke Exposure: No Advance Directives Date on File: 08/21/21 service: No Current occupational status: employed Review of Systems Const All systems reviewed & are unremarkable except as noted in HPI and below Physical Exam Vital Signs: Last Vital Signs Pulse 85 12/08/24 09:22 BP 133/80 12/08/24 09:22 Pulse Ox 98 12/08/24 09:22 Oxygen Delivery Method Room Air 12/08/24 09:22 BMI result Body Mass Index 37.7 Const General: healthy appearing and no acute distress Nutritional Appearance: average body habitus Orientation/consciousness: patient oriented x3 Limitations: no limitations HEENT Head: Yes normal to inspection Ears: hearing grossly normal bilaterally Mouth: Normal oral and palatal mucosa present Eyes Sclerae: sclerae normal Pupils: Equal, round and reactive pupils present Neck Neck: Yes normal visual inspection Chest Chest palpation & inspection: normal inspection of the chest Resp Effort & Inspection: normal respiratory effort Auscultation: clear to auscultation bilaterally Cardio Palpation: normal PMI Rate: regular rate Rhythm: regular rhythm Heart sounds: S1 normal heart sound present, S2 normal heart sound present and no murmurs GI Palpation (GI): Soft to palpation, nontender and No hepatosplenomegaly present Auscultation: normal bowel sounds Rectal Exam - Female: deferred Skin General skin exam: no rashes or lesions noted Neuro General: patient oriented x3, gait normal and moves all extremities Cranial nerves: Yes Equal, round and reactive pupils present Psych Appearance: grossly normal Mental Status: mental status grossly normal Assessment & Plan Assessment & Plan (1) NAFLD (nonalcoholic fatty liver disease): Comment: maintain good weight, cholesterol and glucose ultrasound Review discuss/liver cyst will continue with dietary modifications and dietary plan Code(s): K76.0 - Fatty (change of) liver, not elsewhere classified Category: Medical (2) Fundic gland polyps of stomach, benign: Comment: Gastric polyp:? Fundic gland polyp with?low-grade adenomatous dysplasia; negative for intestinal metaplasia and high-grade dysplasia- Consult with Dr. Millard-chioma adenomatous change-certainly given patient history/family Code(s): D13.1 - Benign neoplasm of stomach Category: Medical (3) Sessile serrated polyp of colon: Comment: very anxious polyp- reviewed pathology reassured Code(s): D12.6 - Benign neoplasm of colon, unspecified Category: Medical Plan 49 YF with hypertension, PAC, NSVT and renal stones followed in GI for GERD, multiple gastric polyps (one polyp with adenomatous dysplasia) Admits to wt gain and scheduled to enroll in a wt management program. Strong family history of colon, pancreatic and liver cancer. Genetic testing showed high risk for colon and endometrial cancer [place] and planning to have GB removed next year due to wall thickening 12/08/24 Patti was advised to schedule an EGD - FU of multiple gastric polyps She will be due for a colonoscopy in 10/2025 for FU of sessile serrated colon polyps. FU in 6 months Orders: Referrals GI Procedure Notification D13.1 - Benign neoplasm of stomach Coding Level of Care Code Est Pt Level 4 (80788) Diagnoses NAFLD (nonalcoholic fatty liver disease) K76.0 Fundic gland polyps of stomach, benign D13.1 Sessile serrated polyp of colon D12.6 Time Spent (min) 25
[2024-12-08 09:22] VITALS: BP 133/80; PULSE 85; O2SAT 98; BMI 37.7
--- NOTE | 2024-12-08 09:39 | MHC.OFFVIS ---
Vital Signs 12/08/24 09:22 Height 5 ft 2 in Weight 206 lb BMI 37.7 BP 133/80 Blood Pressure Location Lt brachial Position Sitting Pulse 85 Pulse Oximetry (%) 98 Oxygen Delivery Method Room Air Intake Visit Reasons: EGD/Nanci pt Allergies cephalexin (CEPHALEXIN) Allergy (Severe, Verified 12/08/24 09:15) SWELLING clavulanic acid (From AUGMENTIN) Allergy (Severe, Verified 12/08/24 09:15) ANAPHYLAXIS clindamycin (CLINDAMYCIN) Allergy (Severe, Verified 12/08/24 09:15) TONGUE SWELLING codeine Allergy (Severe, Verified 12/08/24 09:15) PASSED OUT influenza virus vaccine, specific (FLU VACCINE) Allergy (Severe, Verified 12/08/24 09:15) ANAPHYLAXIS perflutren (From Definity) Allergy (Severe, Verified 12/08/24 09:15) hives/anaphylaxis seafood Allergy (Severe, Verified 12/08/24 09:15) Anaphylaxis fluconazole Allergy (Intermediate, Verified 12/08/24 09:15) HIVES gentamicin (GENTAMICIN) Allergy (Intermediate, Verified 12/08/24 09:15) RASH Iodinated Contrast Media (IV Contrast Dye) Allergy (Intermediate, Verified 12/08/24 09:15) Hives oxycodone Allergy (Intermediate, Verified 12/08/24 09:15) SOB sulfamethoxazole (From Bactrim) Allergy (Mild, Verified 12/08/24 09:15) swelling trimethoprim (From Bactrim) Allergy (Mild, Verified 12/08/24 09:15) swelling pineapple Allergy (Verified 12/08/24 09:15) Anaphylaxis scopolamine Adverse Reaction (Severe, Verified 12/08/24 09:15) Vomiting midazolam Adverse Reaction (Intermediate, Verified 12/08/24 09:15) Vomiting Medication List - Last Reconciled 12/08/24 by Hiral Millard MD albuterol sulfate 90 mcg/actuation 2 puffs inhalation Q4H PRN hydromorphone 2 mg PO BID PRN ibuprofen 800 mg PO Q8H PRN losartan 50 mg PO DAILY magnesium 300 mg PO DAILY ondansetron 4 mg PO Q8H PRN tamsulosin (Flomax) 0.4 mg PO DAILY vitamin B complex 1 tab PO DAILY PFSH Medical History Liver cyst History of COVID-19 Post-operative nausea and vomiting NAFLD (nonalcoholic fatty liver disease) Morbid obesity with BMI of 40.0-44.9, adult H/O ganglion cyst Essential hypertension NSVT (nonsustained ventricular tachycardia) Vertigo Kidney stones Migraine Carotid artery disease Fibromyalgia HTN (hypertension) Asthma PAC (premature atrial contraction) PVC (premature ventricular contraction) Surgical History History of endometrial ablation Hx of cystoscopy Hx of lithotripsy H/O esophagogastroduodenoscopy H/O colonoscopy History of partial hysterectomy Family History Father Skin cancer Cardiovascular disease Myocardial infarction Hypertension IBS (irritable bowel syndrome) Mother Hypertension Sister Myocardial infarction Hypertension Heartburn Paternal Uncle Colon cancer Paternal Grandmother Colon cancer Social History Household Members: Children Housing: Apartment Do you presently have visiting nurse or other home services: No Alcohol intake: current Alcohol intake frequency: holidays/special occasions only Patient Tobacco Use Status: Never used Tobacco Second Hand Smoke Exposure: No Advance Directives Date on File: 08/21/21 service: No Current occupational status: employed Review of Systems Const All systems reviewed & are unremarkable except as noted in HPI and below Physical Exam Vital Signs: Last Vital Signs Pulse 85 12/08/24 09:22 BP 133/80 12/08/24 09:22 Pulse Ox 98 12/08/24 09:22 Oxygen Delivery Method Room Air 12/08/24 09:22 BMI result Body Mass Index 37.7 Const General: healthy appearing and no acute distress Nutritional Appearance: average body habitus Orientation/consciousness: patient oriented x3 Limitations: no limitations HEENT Head: Yes normal to inspection Ears: hearing grossly normal bilaterally Mouth: Normal oral and palatal mucosa present Eyes Sclerae: sclerae normal Pupils: Equal, round and reactive pupils present Neck Neck: Yes normal visual inspection Chest Chest palpation & inspection: normal inspection of the chest Resp Effort & Inspection: normal respiratory effort Auscultation: clear to auscultation bilaterally Cardio Palpation: normal PMI Rate: regular rate Rhythm: regular rhythm Heart sounds: S1 normal heart sound present, S2 normal heart sound present and no murmurs GI Palpation (GI): Soft to palpation, nontender and No hepatosplenomegaly present Auscultation: normal bowel sounds Rectal Exam - Female: deferred Skin General skin exam: no rashes or lesions noted Neuro General: patient oriented x3, gait normal and moves all extremities Cranial nerves: Yes Equal, round and reactive pupils present Psych Appearance: grossly normal Mental Status: mental status grossly normal Assessment & Plan Assessment & Plan Orders: Referrals GI Procedure Notification D13.1 - Benign neoplasm of stomach Coding Level of Care Code Est Pt Level 4 (26110) Time Spent (min) 23
--- OUTSIDE RECORDS SUMMARY | 2024-12-08 09:55 | XMS_ITS | Clinical Summary ---
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 Name Role Phone Jane Dao NP Primary Care Provider [phone] Allergies Active Allergy Reactions Criticality Noted Date Comments Lajas 11/01/2023 Other Reaction(s): Unknown Augmentin (Amoxicillin-Pot Clavulanate) Hives Medium 07/30/2015 Other Reaction(s): Unknown Bactrim (Sulfamethoxazole-Tri methoprim) 11/01/2023 Other Reaction(s): Unknown Cephalexin Hives 07/30/2015 Other Reaction(s): Unknown Chickpea 11/01/2023 Other Reaction(s): Unknown Clindamycin 11/01/2023 Other Reaction(s): Unknown Codeine Other (See Comments) 07/30/2015 Pass out Other Reaction(s): Unknown Perflutren Lipid Microspheres 03/19/2020 Diflucan (Fluconazole) 11/01/2023 Other Reaction(s): Unknown Fish Containing Products 12/23/2017 Gentamicin 12/23/2017 Other Reaction(s): Fluconazole, Unknown Influenza Virus Vaccines Anaphylaxis High 11/01/2023 Iodinated Contrast Media 11/01/2023 Other Reaction(s): Unknown Oxycodone 11/01/2023 Other Reaction(s): Unknown Pineapple 01/10/2021 Other Reaction(s): Anaphylactic reaction to food Shellfish Containing Products Anaphylaxis High 12/23/2017 Versed (Midazolam) 11/01/2023 Other Reaction(s): Unknown Yeast 11/01/2023 Other Reaction(s): Unknown Medications ibuprofen (ADVIL,MOTRIN) 200 MG tablet Take 200 mg by mouth every 6 (six) hours as needed for pain (specific location in comments). Active LORazepam (ATIVAN) 0.5 MG tablet Take 0.5 mg by mouth every 6 (six) hours as needed for anxiety. Active meclizine (ANTIVERT) 25 MG tablet Take 25 mg by mouth 3 (three) times a day as needed for dizziness. Active therapeutic multivitamin tablet Take 1 tablet by mouth daily. Active losartan (COZAAR) 25 MG tablet Take 25 mg by mouth daily. Active beclomethasone dipropionate (QNASL NASL) by Nasal route. A ctive tamsulosin (FLOMAX) 0.4 mg Cap Take 0.4 mg by mouth daily. Active traMADoL (ULTRAM) 50 mg tablet Take 50 mg by mouth every 6 (six) hours as needed for pain (specific location in comments). Active levalbuterol (XOPENEX) 0.63 mg/3 mL nebulizer solution USE 3 ML VIA NEBULIZER THREE TIMES DAILY 1 Active levocetirizine (XYZAL) 5 MG tablet Take 5 mg by mouth. 3 Active phentermine 15 MG capsule Take 15 mg by mouth every morning. 4 Active triamcinolone acetonide 0.025 % cream Apply topically. 4 Active phenazopyridine (PYRIDIUM) 100 MG tablet take 1 tablet by mouth three times daily as needed for spasm 4 Active ondansetron (ZOFRAN) 4 MG tablet Take 4 mg by mouth every 8 (eight) hours as needed. Active levalbuterol (XOPENEX HFA) 45 mcg/actuation inhaler INHALE 1 PUFF BY MOUTH EVERY 6 HOURS NEEDED 4 Active HYDROcodone-aceta minophen (XODOL) 5-300 mg per tablet Take 1 tablet by mouth every 6 (six) hours as needed. Active HYDROmorphone (DILAUDID) 2 MG tablet Take 2 mg by mouth every 6 (six) hours as needed. 3 Active medical supply, miscellaneous (MISCELLANEOUS CREAMS TOP) Apply topically. Compounded hormone replacement cream Active Active Problems Problem Noted Date Diagnosed Date Family history of cancer Overview (05/28/2020): patient reports pos for colon cancer gene and is at risk for breast cancer Seeing breast surgeon Assessment & Plan (05/28/2020 9:31 AM EST): If this is Stein, then may be at risk for ovarian cancer as well, in which case BSO advised; She states she can get us the exact test result info, but not her priority right now due to ongoing cardiac issue and she is not in place to decide re a BSO Also unable to take any time off from work Resolved Problems Problem Noted Date Diagnosed Date Resolved Date Vulvar itching 03/19/2020 11/01/2023 Assessment & Plan (03/19/2020 11:56 AM EST): Will treat empirically with terazol (allergy - hives- with diflucan) Vaginal pain 03/19/2020 11/01/2023 Overview (03/19/2020): At vag cuff since hysterectomy; told scar tissue Assessment & Plan (05/28/2020 9:29 AM EST): Daily has a very mild pain or ache, severe pain with any pressure (such as speculum or u/s transducer) Discussed that laparoscopy to assess for adhesions, may or may not find any, SHELBY might help - risk of bowel injury with SHELBY. May be fallopian tube Is not able to consider surgery - wrrking from home, unable to take time off; also has A recent cardiac dx for which she has ongoing appts Assessment & Plan (03/19/2020 11:57 AM EST): RTO for full discussion of the pain at cuff, usually when provoked; may warrant a laparoscopy Encounters Date Type Department Care Team Description 09/11/2024 7:19 PM EDT - 09/11/2024 11:59 PM EDT Hospital Encounter [facility], Ct Scan - [address] [address] Sophia Kumar FNP Discharge Disposition: Home or Self Care 08/04/2024 Procedure Pass [facility], Ct Scan - [address] [address] from Last 3 Months Immunizations Immunization Administration Dates Next Due INFLUENZA, SPLIT VIRUS, TRIVALENT W/ PRESERVATIV E IM 01/23/2015 Family History Medical History Relation Comments Breast cancer Cousin Asthma Father COPD Father Hypertension Father Hypotension Father Skin cancer Father Breast cancer Maternal Aunt Ovarian cancer Maternal Grandmother Arthritis Mother Hypotension Mother Kidney surgery Mother Stones Colon cancer Paternal Grandmother Diabetes Paternal Grandmother Liver cancer Paternal Uncle Pancreatic cancer Paternal Uncle Heart defect Sister Lupus Sister Relation Status Comments Cousin Daughter Alive Father Alive Maternal Aunt Maternal Grandmother Mother Alive Paternal Grandmother Paternal Uncle Sister Social History Tobacco Use Types Packs/Day Years [...] 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 Not on file Not on file Last Filed Vital Signs Vital Sign Reading Time Taken Comments Blood Pressure 126/84 11/01/2023 2:21 PM EDT Pulse 105 05/16/2021 12:26 PM EST Temperature 36.3 C (97.3 F) 05/16/2021 12:26 PM EST Respiratory Rate 18 05/16/2021 12:26 PM EST Oxygen Saturation 99% 05/16/2021 12:26 PM EST Inhaled Oxygen Concentration - - Weight 99.8 kg (220 lb) 05/16/2021 12:26 PM EST Height 157.5 cm (5' 2 ) 05/16/2021 12:26 PM EST Body Mass Index 40.24 05/16/2021 12:26 PM EST Plan of Treatment Upcoming Encounters Date Type Department Care Team (Late st Contact Info) Description 02/01/2025 8:00 AM EDT Appointment [facility], Nuclear Medicine - [address] [address] Desmond Acosta MD [address] [place] [address] [email or web address] Maintenance Due Date Last Done Comments LIPID PANEL 1973 DEPRESSION SCREENING 1985 HEPATITIS C SCREENING 1991 HIV ONE-TIME SCREENING (18-6 5 YEARS) 1991 PAP SMEAR 1994 COLOGUARD 2018 COLONOSCOPY 2018 COLORECTAL CANCER SCREENING 2018 FIT TEST 2018 FOBT 2018 SIGMOIDOSCOPY 2018 VIRTUAL COLONOSCOPY 2018 CREATININE LEVEL 05/16/2022 05/16/2021 POTASSIUM LEVEL 05/16/2022 05/16/2021 MAMMOGRAM 11/07/2022 11/07/2020 PNEUMOCOCCAL VACCINES (50+ years) (1 of 1 - PCV) 2023 ZOSTER VACCINES (1 of 2) 2023 COVID-19 VACCINE (3 - 2023-2 5 season) 2023 12/17/2020, 11/28/2020 Adult Td,Tdap Booster 07/25/2033 07/26/2023 SMOKING STATUS SCREENING (On ce After 26 Yrs) Completed 05/16/2021 HEPATITIS A VACCINES Aged Out No long er eligible based on patient's age to complete this topic HIB VACCINES Aged Out No longer eligi ble based on patient's age to complete this topic MENINGOCOCCAL VACCINES (ACWY) Aged Out No longer eligible based on patient's age to complete this topic MENINGOCOCCAL VACCINES (B) Aged Out N o longer eligible based on patient's age to complete this topic Medical Devices Not on file Procedures Procedure Name Priority Date/Time Associated Diagnosis Comments CT ABDOMEN/PELVIS (KIDNEY STONE) WITHOUT CONTRAST Routine 09/11/2024 7:32 PM EDT Flank pain BASIC METABOLIC PANEL STAT 05/16/2021 2:12 PM EST MAMMOGRAPHY Routine 11/07/2020 from Last 3 Months or Most Recently Relevant to Health Maintenance Results * CT ABDOMEN/PELVIS (KIDNEY STONE) WITHOUT CONTRAST (09/11/2024 7:32 PM EDT) Anatomical Region Laterality Modality Abdomen, Pelvis Computed Tomogra phy 09/13/2024 1:13 PM EDT Impressions 09/13/2024 1:21 PM EDT 1. Bilateral nonobstructing renal calculi. Narrative 09/13/2024 1:[address] ABDOMEN/PELVIS (KIDNEY STONE) WITHOUT CONTRAST Referring clinician's provided indication for this examination in Epic: * Flank pain, kidney stone suspected TECHNIQUE: Multidetector-row CT of the abdomen and pelvis was performed without intravenous contrast using tailored dose modulation techniques. Images were reconstructed in the axial, coronal, and sagittal planes. COMPARISON: 05/31/2024, 10/14/2023, 08/01/2012 ABSENCE OF INTRAVENOUS CONTRAST DECREASES SENSITIVITY FOR DETECTION OF FOCAL LESIONS AND VASCULAR PATHOLOGY. FINDINGS: Lower Chest: No consolidation or pleural effusions. Liver: Innumerable subcentimeter hypoattenuating foci, too small to accurately characterize and statistically representing cysts. Biliary: No biliary ductal dilatation. Spleen: No splenomegaly or focal lesions. Pancreas: No masses or ductal dilatation. Adrenal Glands: No nodules. Kidneys/Ureters: No right-sided hydronephrosis. 2 mm nonobstructing right upper pole calculus. No contour deforming mass lesion. No left-sided hydronephrosis. 1-2 mm nonobstructing left upper pole calculi (series 5, image 255). Fat density lesion measuring 6 mm within the left lower pole, unchanged. Bowel: There is no evidence of intestinal obstruction. Segments of the colon are collapsed and suboptimally assessed. Within this limitation, there is no wall thickening or surrounding inflammatory change. Moderate volume fecal burden throughout the colon. The appendix is visualized and is normal. Peritoneum/Retroperitoneum: No masses, pneumoperitoneum, or fluid. Lymph Nodes: No lymphadenopathy. Pelvic Organs/Bladder: The uterus is not identified, likely surgically absent. Vessels: No abdominal aortic aneurysm. Mild atherosclerotic vascular calcification. Please note, patency cannot be assessed without intravenous contrast. Bones/Soft Tissues: Mild multilevel degenerative changes of the thoracolumbar spine. Sclerosis within the left iliac bone measuring 11 mm (series 5, image 538). Procedure Note Amy Pizarro MD - 09/13/2024 CT ABDOMEN/PELVIS (KIDNEY STONE) WITHOUT CONTRAST Referring clinician's provided indication for this examination in Epic: *Flank pain, kidney stone suspected TECHNIQUE: Multidetector-row CT of the abdomen and pelvis was performedwithout intravenous contrast using tailored dose modulation techniques.Images were reconstructed in the axial, coronal, and sagittal planes. COMPARISON: 05/31/2024, 10/14/2023, 08/01/2012 ABSENCE OF INTRAVENOUS CONTRAST DECREASES SENSITIVITY FOR DETECTION OFFOCAL LESIONS AND VASCULAR PATHOLOGY. FINDINGS: Lower Chest: No consolidation or pleural effusions. Liver: Innumerable subcentimeter hypoattenuating foci, too small toaccurately characterize and statistically representing cysts. Biliary: No biliary ductal dilatation. Spleen: No splenomegaly or focal lesions. Pancreas: No masses or ductal dilatation. Adrenal Glands: No nodules. Kidneys/Ureters: No right-sided hydronephrosis. 2 mm nonobstructing rightupper pole calculus. No contour deforming mass lesion. No left-sided hydronephrosis. 1-2 mm nonobstructing left upper polecalculi (series 5, image 255). Fat density lesion measuring 6 mm withinthe left lower pole, unchanged. Bowel: There is no evidence of intestinal obstruction. Segments of thecolon are collapsed and suboptimally assessed. Within this limitation,there is no wall thickening or surrounding inflammatory change. Moderatevolume fecal burden throughout the colon. The appendix is visualized andis normal. Peritoneum/Retroperitoneum: No masses, pneumoperitoneum, or fluid. Lymph Nodes: No lymphadenopathy. Pelvic Organs/Bladder: The uterus is not identified, likely surgicallyabsent. Vessels: No abdominal aortic aneurysm. Mild atherosclerotic vascularcalcification. Please note, patency cannot be assessed without intravenouscontrast. Bones/Soft Tissues: Mild multilevel degenerative changes of thethoracolumbar spine. Sclerosis within the left iliac bone measuring 11 mm(series 5, image 538). IMPRESSION: 1. Bilateral nonobstructing renal calculi. Sophia Kumar CRM SOLUTION ARCHITECT IMG CT ABD/PELVIS Final Resu lt * (ABNORMAL) Basic metabolic panel (05/16/2021 2:12 PM EST) SODIUM 140 133 - 146 mmol/L [facility] CHLORIDE 104 96 - 108 mmol/L [facility] POTASSIUM 3.9 3.3 - 5.1 mmol/L [facility] Comment:Specimen slightly he molyzed, result may be falsely elevated. CO2 23 21 - 35 mmol/L [facility] BUN 15 6 - 19 mg/dL [facility] CREATININE 0.80 0.5 - 1.5 mg/dL [facility] GLUCOSE 128(H) 70 - 99 mg/dL [facility] CALCIUM 9.6 8.4 - 10.3 mg/dL [facility] EGFR 91 >59 mL/min/1.7 3m2 [facility] Comment:Estimated glomerular filtration rate calculated using the CKD-EPI refit equation. ANION GAP 17 10 - 20 mmol/L [facility] Blood 05/16/2021 2:12 PM EST 05/16/2021 2:[address] PA-C LAB BLOOD ORDERABLES Final Re sult [facility] [address] [place] [address] * MAMMOGRAPHY FOR RESULT ENTRY ONLY (11/07/2020) us Ynes Phipps NP HEALTH MAINTENANCE Final Result from Last 3 Months or Most Recently Relevant to Health Maintenance Insurance [facility] [place] [address] [place] [address] [place] [address] [place] [address] [place] [address] [place] [address] [facility] Care Teams 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 PCP - General Nurse Practitioner 07/10/24 Additional Source Comments The information contained in this document represents components of the legal health record. It is not the complete legal health record.[facility]
--- OUTSIDE RECORDS SUMMARY | 2024-12-08 09:55 | XMS_ITS | Encounter Summary ---
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 documented as of this encounter Visit Diagnoses Not on filedocumented in this encounter Care Teams Travel Specialist Relationship Specialty Start Date End Date Jane Dao NP [address] [place] [phone] [email or web address] PCP - General Nurse Practitioner 07/10/24 documented as of this encounter Additional Source Comments The information contained in this document represents components of the legal health record. It is not the complete legal health record.[facility]
--- OUTSIDE RECORDS SUMMARY | 2024-12-08 09:55 | XMS_ITS | Encounter Summary ---
Author Organization [facility] Address [address] [place] [address] [address] [place] [address] Phone Care Team Providers Care Stone Banker Name Role Phone Ynes Phipps [employer]BAC[employer] STEMMER MACHINE Primary Care Provider [phone] Ynes Phipps [employer]BAC[employer] STEMMER MACHINE Primary Care Provider [phone] Jane Dao TOBACCO STEMMER MACHINE Primary Care Provider [phone] Reason for Referral * Consultation (Elective) - Closed Specialty Diagnoses / Procedures Referred By Evangelist maurice Referred To Contact Diagnoses Aneurysm of artery of neck System, Provider Not In, [facility] [address] [address] Referral ID Status Reason Start Date Expiration Date Visits Re quested Visits Authorized [id number] Closed 07/17/2015 07/16/2016 1 1 Encounter Details Date Type Department Care Team (Latest Contact Info) Description 07/17/2015 Transcribe Orders [facility] Cardiovascular Medicine [address] [place] [address], [address] Floor, [address] [place] [address] System, Provider Not In, [facility] [address] [place] [address] Aneurysm of artery of neck (Primary Dx) Social History Tobacco Use Types Packs/Day Years Used Date Smoking Tobacco: Never Assessed Comments Unknown Sex and Gender Information Value Date Recorded Sex Assigned at Not on file Legal Sex Female 2:58 PM EDT Gender Identity Not on file Sexual Orientation Not on file documented as of this encounter Plan of Treatment Upcoming Encounters Date Type Department Care Team (Late st Contact Info) Description 02/01/2025 8:00 AM EDT Appointment [facility], Nuclear Medicine - [address] [address] Desmond Acosta MD [address] [place] [address] [email or web address] Scheduled Referrals Name Type Priority Associated Diagnoses Order Schedule Ambulatory referral to [facility] Vascular/Stroke Outpatient Referral Routine Aneurysm of artery of neck Ordered: 07/17/2015 documented as of this encounter Visit Diagnoses Diagnosis Aneurysm of artery of neck- Primary documented in this encounter Additional Health Concerns Infection Onset Date Last Indicated Resolved Time CoV-Risk 10/13/2019 10/14/2019 10/27/2019 3:34 AM EDT CoV-Exposed Comment:Recent close contact documented in the Travel/Symptom Screening Form 05/16/2021 05/16/2021 05/27/2021 1:[address] documented as of this encounter Care Teams Stone Banker Relationship Specialty Start Date End Date Ynes Phipps NP [address] [place] [address] PCP - General 07/17/15 11/10/17 Ynes Phipps NP [address] [place] [phone] PCP - General Geriatric Psychiatry 11/11/17 07/09/24 Jane Dao NP [address] [place] [id number] [email or web address] PCP - General Nurse Practitioner 07/10/24 documented as of this encounter Additional Source Comments The information contained in this document represents components of the legal health record. It is not the complete legal health record.[facility]
--- OUTSIDE RECORDS SUMMARY | 2024-12-08 09:55 | XMS_ITS ---
Author Name [facility] Organization Unknown Results Test Name/Text Value Interpretation Date Range Source RBC num/area UrnS HPF >25.0 per hpf Above high normal 06/15/2024 0 - 4 [facility] WBC num/area UrnS HPF 5.0 per hpf Above high normal 06/15/2024 0 - 4 [facility] Bacteria UrnS Ql Micro Present Abnormal 06/15/2024 - CCT CaOx Cry UrnS Ql Micro Present Normal 06/15/2024 [facility] Squamous num/area UrnS HPF 1.0 PER HPF Normal 06/15/2024 [facility] Nitrite Ur Ql Strip Unable to perform chemistries due to color of urine Abnormal 06/15/2024 - [facility] Sp Gr Ur Strip 1.015 Normal 06/15/2024 1.003 - 1.03 H HCCT Color Ur Tresckow Normal 06/15/2024 [facility] Clarity Ur Slightly cloudy Normal 06/15/2024 HH CCT Ketones Ur Strip-mCnc Negative Normal 06/15/2024 - [facility] pH Ur Strip 6.0 Normal 06/15/2024 5 - 8 [facility] Glucose Ur Strip-mCnc 0.0 mg/dL Normal 06/15/2024 0 - 99 [facility] Hgb Ur Ql Strip Large Abnormal 06/15/2024 - C CT Prot Ur Strip-mCnc Unable to perform chemistries due to color of urine Abnormal 06/15/2024 - CCT Bilirub Ur Strip-mCnc Unable to perform chemistries due to color of urine Abnormal 06/15/2024 - [facility] Leukocyte esterase Ur Ql Strip Negative Normal 06/15/2024 - CCT Normocytes Present Normal 06/15/2024 HHT Lymphocytes/leuk NFr Bld Auto 8.0 % Normal 06/15/2024 H[facility]CT Normochromic Bld Ql Smear Present Normal 06/15/2024 H[facility]CT Segmented Neutrophil 88.0 % Normal 06/15/2024 H[facility]CT Lymphocytes num Bld Auto 1.5 Thou/uL Normal 06/15/2024 1.5 - 4.5 H[facility]CT Monocyte, Absolute 0.7 Thou/uL Normal 06/15/2024 0.2 - 1. 5 [facility] Monocytes/leuk NFr Bld Auto 4.0 % Normal 06/15/2024 [facility] Neutrophils num Bld Auto 16.0 Thou/uL Above high normal 06/15/2024 2 - 7.5 H[facility]CT Hgb Bld-mCnc 13.8 g/dL Normal 06/15/2024 11.7 - 15.7 HHCC T MCHC RBC Auto-mCnc 33.0 g/dL Normal 06/15/2024 30 - 36 [facility] WBC num Bld Auto 18.2 Thou/uL Above high normal 06/15/2024 4 - 11 H[facility]CT MCV RBC Auto 87.0 fL Normal 06/15/2024 80 - 100 [facility]CT Hct VFr Bld Auto 41.8 % Normal 06/15/2024 35 - 47 HH CCT MCH RBC Qn Auto 28.8 pg Normal 06/15/2024 27 - [address] RDW RBC Auto-Rto 12.6 % Normal 06/15/2024 11.5 - 14.5 [facility] RBC num Bld Auto 4.8 Mil/uL Normal 06/15/2024 4 - 5.4 H HCCT Platelet num Bld Auto 255.0 Thou/uL Normal 06/15/2024 150 - 450 H[facility]CT PMV Bld Auto 10.7 fL Normal 06/15/2024 7.5 - 12.5 HHCCT Calcium SerPl-mCnc 9.6 mg/dL Normal 06/15/2024 8.7 - 10.5 H[facility]CT Globulin Ser Calc-mCnc 3.3 g/dL Normal 06/15/2024 1.5 - 3.9 HHCCT GFR/BSA.pred SerPlBld [id number] 77.0 Normal 06/15/2024 59 - HHCCT AST SerPl-cCnc 24.0 U/L Normal 06/15/2024 10 - 50 HHCC T BUN SerPl-mCnc 16.0 mg/dL Normal 06/15/2024 8 - [address] Albumin SerPl-mCnc 4.2 g/dL Normal 06/15/2024 3.5 - 5 HHCCT Sodium SerPl-sCnc 142.0 mmol/L Normal 06/15/2024 136 - 14 5 HHCCT Bilirub SerPl-mCnc 0.5 mg/dL Normal 06/15/2024 0.2 - 1 HHCCT ALP SerPl-cCnc 148.0 U/L Above high normal 06/15/2024 32 - 1 22 HHCCT Creat SerPl-mCnc 0.9 mg/dL Normal 06/15/2024 0.4 - 1.1 HH CCT Prot SerPl-mCnc 7.5 g/dL Normal 06/15/2024 6.3 - 8.[address] BUN/Creat SerPl 18.0 Ratio Normal 06/15/2024 10 - 25 HH CCT CO2 SerPl-sCnc 26.0 mmol/L Normal 06/15/2024 22 - 33 HH CCT Glucose SerPl-mCnc 127.0 mg/dL Above high normal 06/15/2024 65 - 99 H[facility]CT Chloride SerPl-sCnc 106.0 mmol/L Normal 06/15/2024 98 - 1 07 HHCCT Potassium SerPl-sCnc 3.8 mmol/L Normal 06/15/2024 3.4 - 5.3 HHCCT Albumin/Glob SerPl 1.3 Ratio Normal 06/15/2024 1 - 3 HHCCT Anion Gap Bld-sCnc 10.0 Normal 06/15/2024 7 - 17 HHCCT ALT SerPl-cCnc 48.0 U/L Normal 06/15/2024 10 - 50 HH[facility] T STONE WEIGHT 0.013 g Normal 06/22/2024 H[facility]CT COMPONENT 1 REPORT Normal 06/22/2024 H[facility]CT BUN SerPl-mCnc 17.0 mg/dL Normal 06/10/2024 8 - [address] BUN/Creat SerPl 19.0 Ratio Normal 06/10/2024 10 - 25 HH CCT Calcium SerPl-mCnc 9.3 mg/dL Normal 06/10/2024 8.7 - 10.5 HHCCT GFR/BSA.pred SerPlBld [id number] 77.0 Normal 06/10/2024 59 - HHCCT Chloride SerPl-sCnc 107.0 mmol/L Normal 06/10/2024 98 - 1 07 HHCCT Sodium SerPl-sCnc 142.0 mmol/L Normal 06/10/2024 136 - 14 5 HHCCT Creat SerPl-mCnc 0.9 mg/dL Normal 06/10/2024 0.4 - 1.1 HH CCT CO2 SerPl-sCnc 26.0 mmol/L Normal 06/10/2024 22 - 33 HH CCT Anion Gap Bld-sCnc 9.0 Normal 06/10/2024 7 - 17 HHCCT Potassium SerPl-sCnc 4.2 mmol/L Normal 06/10/2024 3.4 - 5.3 HHCCT Glucose SerPl-mCnc 86.0 mg/dL Normal 06/10/2024 65 - 99 HHCCT Eosinophil/leuk NFr Bld Auto 11.9 % Normal 06/10/2024 HHCCT Monocytes num Bld Auto 0.52 Thou/uL Normal 06/10/2024 0.2 - 1.5 HHCCT PMV Bld Auto 11.2 fL Normal 06/10/2024 7.5 - 12.5 HHCCT Lymphocytes/leuk NFr Bld Auto 34.1 % Normal 06/10/2024 HHCCT Eosinophil num Bld Auto 0.98 Thou/uL Above high normal 06/10/2024 0 - 0.7 HHCCT MCH RBC Qn Auto 28.7 pg Normal 06/10/2024 27 - [address] MCV RBC Auto 88.0 fL Normal 06/10/2024 80 - 100 HHCCT Monocytes/leuk NFr Bld Auto 6.3 % Normal 06/10/2024 HHCCT MCHC RBC Auto-mCnc 32.5 g/dL Normal 06/10/2024 30 - 36 HHCCT Imm Granulocytes num Bld Auto 0.03 Thou/uL Normal 06/10/2024 0 - 0.1 HHCCT RBC num Bld Auto 4.57 Mil/uL Normal 06/10/2024 4 - 5.4 HHCCT Basophils num Bld Auto 0.11 Thou/uL Normal 06/10/2024 0 - 0.2 HHCCT Neutrophils/leuk NFr Bld Auto 46.0 % Normal 06/10/2024 H[facility]CT Imm Granulocytes/leuk NFr Bld Auto 0.4 % Normal 06/10/2024 HHCCT Lymphocytes num Bld Auto 2.82 Thou/uL Normal 06/10/2024 1.5 - 4.5 HHCCT Hct VFr Bld Auto 40.3 % Normal 06/10/2024 35 - 47 HH CCT Platelet num Bld Auto 226.0 Thou/uL Normal 06/10/2024 150 - 450 HHCCT RDW RBC Auto-Rto 12.8 % Normal 06/10/2024 11.5 - 14.5 HHCCT Neutrophils num Bld Auto 3.8 Thou/uL Normal 06/10/2024 2 - 7.5 HHCCT WBC num Bld Auto 8.3 Thou/uL Normal 06/10/2024 4 - 11 HHCCT Basophils/leuk NFr Bld Auto 1.3 % Normal 06/10/2024 HHCCT Hgb Bld-mCnc 13.1 g/dL Normal 06/10/2024 11.7 - 15.7 HHCC T History of Medication Use Medication Directions Dispensed Refills Start Date End Date Stat proMETHAZINE (PHENERGAN) 12.5 MG tablet Take 1 tablet (12.5 mg total) by mouth 4 times daily (every 6 hours) as needed for nausea or vomiting. 06/21/2024 active ciprofloxacin (CIPRO) 500 MG tablet Take 1 tablet (500 mg total) by mouth 2 (two) times a day. 06/15/2024 active phenazopyridine (PYRIDIUM) 200 MG tablet Take 1 tablet (200 mg total) by mouth 3 (three) times a day in the morning, mid-day and early evening. 06/14/2024 active ibuprofen (MOTRIN) 800 mg tablet Take 1 tablet (800 mg total) by mouth 3 times daily (every 8 hours) as needed for mild pain. 05/23/2024 active phenazopyridine (PYRIDIUM) 200 MG tablet Take 1 tablet (200 mg total) by mouth 3 (three) times a day as needed for bladder spasms (bladder irritation). 05/23/2024 active diphenhydrAMINE (BENADRYL) 50 MG tablet Take 1 tablet (50 mg total) by mouth once. Take 1 tablet (50 mg) 1 hours prior to procedure with contrast. 11/26/2023 active methylPREDNISolone (MEDROL) 32 MG tablet Take 1 tablet (32 mg) 12 hours prior to procedure with contrast and 1 tablet (32 mg) 2 hours prior to procedure with contrast. 11/26/2023 active levalbuterol (XOPENEX HFA) 45 mcg/puff inhaler INHALE 1 PUFF BY MOUTH EVERY 6 HOURS NEEDED 09/16/2023 active acetaminophen (TYLENOL) 325 MG tablet Take 3 tablets (975 mg total) by mouth. 03/17/2023 active levocetirizine (Xyzal Allergy 24HR) 5 MG tablet Take 1 tablet (5 mg total) by mouth. 03/15/2023 active ferrous sulfate 325 (65 FE) MG tablet Take 1 tablet (325 mg total) by mouth daily. Take 2 hours before or 4 hours after acid reducers. active HYDROcodone-acetaminophe n (VICODIN) 5-300 MG per tablet Take 1 tablet by mouth 4 times daily (every 6 hours) as needed for severe pain. Max Daily Amount: 4 tablets active HYDROmorphone (DILAUDID) 2 MG tablet Take 1 tablet (2 mg total) by mouth 4 times daily (every 6 hours) as needed for severe pain. Max Daily Amount: 8 mg active meclizine (ANTIVERT) 12.5 MG tablet Take 1 tablet (12.5 mg total) by mouth 3 (three) times a day as needed for dizziness. active ondansetron (ZOFRAN) 4 MG tablet Take 1 tablet (4 mg total) by mouth 3 times daily (every 8 hours) as needed for nausea or vomiting. active phentermine 15 MG capsule Take 1 capsule (15 mg total) by mouth. active SUMAtriptan (IMITREX) 25 MG tablet TAKE 1 TABLET BY MOUTH EVERY 2 TO 4 HOURS NEEDED FOR MIGRAINE HEADACHE. DO NOT EXCEED 8 DOSES IN 24 HOURS. active Allergies Allergen Reaction Severity Comment Documented Date Source Statu s CLINDAMYCIN PHOS-BENZOYL PEROX ANAPHYLAXIS 06/14/2024 [facility] active SCOPOLAMINE GI INTOLERANCE/NAUSE A/VOMITING Bad reaction 06/08/2024 [facility] active PHASEOLUS ANAPHYLAXIS 11/26/2023 [facility] active AMOXICILLIN-POT CLAVULANATE HIVES 07/30/2015 [facility] active CEPHALEXIN ANAPHYLAXIS [facility] CODEINE OTHER (SEE COMMENTS) LOC [facility] FLUCONAZOLE HIVES HHC[facility] GENTAMICIN ANAPHYLAXIS H[facility]CT INFLUENZA VACCINES ANAPHYLAXIS HHCCT IODINATED CONTRAST MEDIA ANAPHYLAXIS HHCCT MIDAZOLAM GI INTOLERANCE/NAUSE A/VOMITING HHCCT PINEAPPLE ANAPHYLAXIS HHCCT SEAFOOD ANAPHYLAXIS HHCCT SULFAMETHOXAZOLE- TRIMETHOPRIM SWELLING HHCCT Problems Problem Status Onset Date Problem Type Date of Resoluti on Source Left flank pain active 2024-06-07 ProblemAct HH [facility] Mild intermittent asthma without complication active 2024-06-09 ProblemAct [facility] Fibromyalgia active 2024-06-09 ProblemAct [facility] Calculus of kidney active 2024-06-07 ProblemAct [facility] Calculus of ureter active 2024-06-07 ProblemAct [facility] Anxiety active 2024-06-09 ProblemAct [facility] Hypertension active 2024-06-09 ProblemAct [facility] Migraine without aura and without status migrainosus, not intractable active 2024-06-09 ProblemAct [facility] Obesity (BMI 30-39.9) active 2024-06-09 ProblemAct [facility] Cirrhosis of liver without ascites active 2023-11-26 ProblemAct [facility] Fibromyalgia active 2024-06-09 ProblemAct [facility] Mild intermittent asthma without complication active 2024-06-09 ProblemAct [facility] Hypertension active 2024-06-09 ProblemAct [facility] Cirrhosis of liver without ascites active 2023-11-26 ProblemAct H[facility]CT Left flank pain active 2024-06-07 ProblemAct HH CCT Anxiety active 2024-06-09 ProblemAct [facility] Migraine without aura and without status migrainosus, not intractable active 2024-06-09 ProblemAct [facility] Calculus of kidney active 2024-06-07 ProblemAct [facility] Calculus of ureter active 2024-06-07 ProblemAct [facility] Obesity (BMI 30-39.9) active 2024-06-09 ProblemAct [facility] Left flank pain active 2024-06-07 ProblemAct HH CCT Obesity (BMI 30-39.9) active 2024-06-09 ProblemAct H[facility]CT Hypertension active 2024-06-09 ProblemAct [facility] Cirrhosis of liver without ascites active 2023-11-26 ProblemAct [facility] Migraine without aura and without status migrainosus, not intractable active 2024-06-09 ProblemAct [facility] Fibromyalgia active 2024-06-09 ProblemAct [facility] Mild intermittent asthma without complication active 2024-06-09 ProblemAct [facility] Calculus of ureter active 2024-06-07 ProblemAct [facility] Calculus of kidney active 2024-06-07 ProblemAct [facility] Anxiety active 2024-06-09 ProblemAct [facility] Encounters Encounter Type Encounter Reason Primary Diagnosis Location Date Ambulatory [facility] 08/10/2024 Ambulatory Encounter for other screening for genetic and chromosomal anomalies Encounter for other screening for genetic and chromosomal anomalies [facility] 08/10/2024 Ambulatory Follow-up Follow-up [facility] 07/31/2024 Ambulatory Calculus of kidney Calculus of kidney [facility] [employer] 06/21/2024 Emergency Presence of urogenit al implants Presence of urogenital implants [facility] 06/15/2024 Ambulatory Calculus of kidney Calculus of kidney [facility] [employer] 06/14/2024 Ambulatory Encounter for other preprocedural examination Encounter for other preprocedural examination [facility] 06/09/2024 Ambulatory Encounter for other preprocedural examination Encounter for other preprocedural examination [facility] 06/09/2024 Ambulatory [facility] 06/07/2024 Ambulatory Calculus of kidney Calculus of kidney [employer] 06/07/2024 Ambulatory Calculus of kidney Calculus of kidney [facility] [employer] 05/23/2024 Ambulatory [facility] 01/11/2024 Ambulatory [facility] 01/11/2024 Ambulatory [facility] 01/11/2024 Ambulatory [facility] 01/11/2024 Ambulatory [facility] 01/11/2024 Ambulatory [facility] 12/28/2023 Ambulatory Cholesterolosis of gallbladder Cholesterolosis of gallbladder [facility] 12/27/2023 Ambulatory [facility] 12/03/2023 Ambulatory [facility] 12/03/2023 Ambulatory [facility] 12/03/2023 Ambulatory [facility] 12/03/2023 Ambulatory [facility] 11/29/2023 Ambulatory [facility] 11/29/2023 Ambulatory [facility] 11/29/2023 Ambulatory [facility] 11/29/2023 Ambulatory Cholesterolosis of gallbladder Cholesterolosis of gallbladder [facility] 11/26/2023 Ambulatory 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
--- OUTSIDE RECORDS SUMMARY | 2024-12-08 09:55 | XMS_ITS | Encounter Summary ---
Author Organization [facility] Address [address] [place] [address] Care Team Providers Care Fire Suppression Captain Name Role Phone Jane Dao MD Primary Care Provider [phone] Reason for Visit * Reason Comments Advice Only Prior Authorization Call Patient Encounter Details Date Type Department Care Team (Late st Contact Info) Description 06/02/2024 Telephone [facility] [address] [place] [address] Violet Suggs, MAMMAL CONTROL AGENT [address] [facility] [address] [place] [address] Advice Only; Prior Authorization; Call Patient Social History Tobacco Use Types Packs/Day Years Used Date Smoking Tobacco: Never Smokeless Tobacco: Never Alcohol Use Standard Drinks/Week Comments Yes 1 (1 standard drink = 0.6 oz pur e alcohol) not daily Comments Unknown Sex and Gender Information Value Date Recorded Sex Assigned at Female 05/23/2024 1:26 PM EST Legal Sex Female 6:15 PM EST Gender Identity Female 05/23/2024 1:26 PM EST Sexual Orientation Heterosexual (straight) 05/23 1:26 PM EST 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 # [id number]. She states no prior authorization is required [...] As far as the requesting provider information. [facility] does have Violet Suggs listed, I am not sure why the facility put a different providers name. After discussion with Zahida, no further intervention needs to be done at this time pertaining to the CT Scan. documented in this encounter Plan of Treatment Not on file documented as of this encounter Visit Diagnoses Not on filedocumented in this encounter Care Teams Fire Suppression Captain Relationship Specialty Start Date End Date Jane Dao MD [address] [place] [id number] PCP - General General Medicine 05/31/23 documented as of this encounter
--- OUTSIDE RECORDS SUMMARY | 2024-12-08 09:55 | XMS_ITS | Patient Health Record ---
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 Name Role Phone Piero Alford Primary Care Provider [phone] Allergies Allergen (clinical drug ingredient) Drug/Non Drug [...] Unknown Allergy Act leti almond allergenic extract [facility] (Diagnostic) Unknown Drug Allergy Active Shellfish (FN) Shellfish-derived Products anaphylaxis Drug Allergy Active Yeast-related Products Unknown Drug Allergy Active Chickpea Unknown Allergy Active Results Component Value Reference Range Notes CT Abdomen & Pelvis Reviewed date:06/25/2024 11:07:14 AM Interpretation: Performing Lab: Notes/Report: Original Report PROCEDURE: CT ABDOMEN and PELVIS without CONTRAST INDICATION: Calculus of kidney. Abdominal and flank pain. TECHNIQUE: CT of the abdomen and pelvis was performed without intravenous contrast. Automated mA/kV exposure control was utilized and patient examination was performed in strict accordance with principles of ALARA. RADIATION AMOUNT: 798.10 mGy-cm. COMPARISON: US abdomen 02/16/2024; MR abdomen 09/01/2022. FINDINGS: Abdomen: The lung bases are clear. Multiple small low-attenuation lesions throughout the liver, the majority of which measure less than 1 cm. Gallbladder is present without gallstones. 1 to 2 mm bilateral nonobstructing renal calculi without ureteral calculi or hydronephrosis. Mild bilateral renal cortical atrophy. The liver, spleen, pancreas, adrenal glands, and kidneys are suboptimally evaluated on these unenhanced images, but demonstrate no acute pathology. There is no free air or lymph node enlargement. Abdominal aorta is not aneurysmal. Pelvis: There is no bowel wall thickening or obstruction. Appendix is normal. Mild gas and stool. There is no free fluid. Lymph nodes are not enlarged. Urinary bladder is unremarkable. Skeleton: There are no acute fractures. No suspicious bony lesions. IMPRESSION: 1.No acute process. 2.1 to 2 mm bilateral nonobstructing renal calculi without ureteral calculi or hydronephrosis. 3.Mild bilateral renal cortical atrophy. 4.Multiple small low-attenuation lesions throughout the liver, the majority of which measure less than 1 cm. Findings are nonspecific but may be secondary to multiple small cysts or biliary hamartomas as previously suggested on prior MRI. Frankie Robbins MD Signed by Frankie Robbins MD Read by: FRANKIE ROBBINS MD Reviewed and Electronically Signed by: FRANKIE ROBBINS MD Phosphorus-[id number] Reviewed date:06/25/2024 11:07:14 AM Interpretation: Performing Lab:[facility] Prieto, [address] [facility], [place], Phone - [phone], Director - Néstor Notes/Report: Phosphorus 3.5 3.0-4.3 mg/dL Testosterone-[id number] Reviewed date:06/25/2024 11:07:15 AM Interpretation: Performing Lab:[facility], [address] [facility], [place], Phone - [phone], Director - Mariannedry Notes/Report: Testosterone 14 4-50 ng/dL Progesterone-[id number] Reviewed date:06/25/2024 11:07:15 AM Interpretation: Performing Lab:Robyn Prieto, [facility], Phone - [phone], Director - Mariannedry Notes/Report: Progesterone 0.3 Follicular phase 0.1 - 0.9 Luteal phase 1.8 - 23.9 Ovulation phase 0.1 - 12.0 First trimester 11.0 - 44.3 Second trimester 25.4 - 83.3 Third trimester 58.7 - 214.0 Postmenopausal 0.0 - 0.1 Estrogens, Total-[id number] Reviewed date:06/25/2024 11:07:15 AM Interpretation: Performing Lab:Robyn Prieto [facility], Phone - [phone], Director - Salinay Notes/Report: Estrogens, Total 178 Prepubertal < 40 Female Cycle: 1-10 Days 16 - 328 11-20 Days 34 - 501 21-30 Days 48 - 350 Post-Menopausal 40 - 244 CBC With Differential/Platel et-[id number] Reviewed date:06/25/2024 11:07:15 AM Interpretation: Performing Lab:Robyn Prieto, [address] [place] [address], Phone - [phone], Director - Néstor Notes/Report: WBC 7.1 3.4-10.8 [...] Immature Grans (Abs) 0.0 0.0-0.1 x10E3/uL PTH, Intact-[id number] Reviewed date:06/25/2024 11:07:15 AM Interpretation: Performing Lab:[facility], [address] [place] [address], Phone - [phone], Director - MDJodry Notes/Report: PTH, Intact 12 15-65 pg/mL Albumin/Creatinine Ratio,Uri ne-[id number] Reviewed date:06/25/2024 11:07:15 AM Interpretation: Performing Lab:[facility], [address] [place] [address], Phone - [phone], Director - MDJodry Notes/Report: Creatinine, Urine 119.4 Not Estab. mg/dL Albumin, Urine 4.9 Not Estab. ug/mL Alb/Creat Ratio 4 0-29 mg/g creat Normal: 0 - 29 Moderately increased: 30 - 300 Severely increased: >300 Comp. Metabolic Panel (14)-3 41545 Reviewed date:06/25/2024 11:07:15 AM Interpretation: Performing Lab:[facility], [address] [place] [address], Phone - [phone], Director - MDJodry Notes/Report: Glucose 74 70-99 [...] IU/L ALT (SGPT) 46 0-32 IU/L LP+Non-HDL Cholesterol-61733 5 Reviewed date:06/25/2024 11:07:15 AM Interpretation: Performing Lab:[facility], [address] [place] [address], Phone - [phone], Director - Salinay Notes/Report: Cholesterol, Total 214 100-199 mg/dL Triglycerides 98 0-149 mg/dL HDL Cholesterol 48 >39 mg/dL VLDL Cholesterol Tr 18 5-40 mg/dL LDL Chol Calc (NIH) 148 0-99 mg/dL Non-HDL Cholesterol 166 0-129 mg/dL UA/M w/rflx Culture, Routine -[id number] Reviewed date:06/25/2024 11:07:15 AM Interpretation: Performing Lab:[facility] [place], [address] [place] [address], Phone - [phone], Director - Néstor Notes/Report: Specific [place] 1.020 1.005-1.030 pH 6.5 5.0-7.5 Urine-Color Yellow [...] None seen None seen/Few TSH reflex to O2Y-[id number] Reviewed date:06/25/2024 11:07:15 AM Interpretation: Performing Lab:[facility] [address] [place] [address], [place], Phone - [phone], Director - Néstor Notes/Report: TSH 1.220 0.450-4.500 uIU/mL Urinalysis, Complete-[id number] Reviewed date:06/25/2024 11:07:14 AM Interpretation: Performing Lab:[facility] [place], [address] [place] [address], [place], Phone - [phone], Director - Néstor Notes/Report: Clinical Information:SRC:UC Clinical Information:SRC:UC Specific [place] 1.018 1.005-1.030 pH 5.5 5.0-7.5 Urine-Color Nance Yellow Appearance Clear Clear WBC Esterase 2+ Negative Protein Trace Negative/Trace Glucose Negative Negative Ketones Negative Negative Occult Blood 1+ Negative Bilirubin Positive Negative Positive result s have been confirmed. Urobilinogen,Semi-Qn 1.0 0.2-1.0 mg/dL Nitrite, Urine Positive Negative Microscopic Examination See below: Micr oscopic was indicated and was performed. WBC None seen 0 - 5 /hpf RBC 3-10 0 - 2 /hpf Epithelial Cells (non renal) 0-10 0 - 10 /hpf Casts None seen None seen /lpf Crystals Present N/A Crystal Type Calcium Oxalate N/A Bacteria None seen None seen/Few Urine Culture, Routine-[id number] Reviewed date:06/25/2024 11:07:14 AM Interpretation: Performing Lab:[facility] [place], [address] [place] [address], Phone - [phone], Director - Nétsor Notes/Report: Clinical Information:SRC: Clinical Information:SRC:UC Urine Culture, Routine Final report Result 1 Culture shows less than 10,000 colony forming units of bacteria per milliliter of urine. This colony count is not generally considered to be clinically significant. PTH, Intact-[id number] Reviewed date:06/25/2024 11:07:14 AM Interpretation: Performing Lab:[facility] [place], [address] [place] [address], Phone - [phone], Director - Néstor Notes/Report: Clinical Information:SRC:UC PTH, Intact 22 15-65 pg/mL Comp. Metabolic Panel (14)-3 [id number] Reviewed date:06/25/2024 11:07:14 AM Interpretation: Performing Lab:[facility] [place], [address] [place] [address], Phone - [phone], Director - [facility] Notes/Report: Clinical Information:SRC:UC Glucose 77 70-99 mg/dL BUN 16 6-24 mg/dL Creatinine 0.79 0.57-1.00 mg/dL eGFR 91 >59 mL/min/1.73 BUN/Creatinine Ratio 20 9-23 Sodium 142 134-144 mmol/L Potassium 4.0 3.5-5.2 mmol/L Chloride 104 96-106 mmol/L Carbon Dioxide, Total 22 20-29 mmol/L Calcium 8.6 8.7-10.2 mg/dL Protein, Total 6.2 6.0-8.5 g/dL Albumin 3.9 3.8-4.9 g/dL Globulin, Total 2.3 1.5-4.5 g/dL Bilirubin, Total 0.6 0.0-1.2 mg/dL Alkaline Phosphatase 142 44-121 IU/L AST (SGOT) 23 0-40 IU/L ALT (SGPT) 30 0-32 IU/L CT Abdomen Pelvis WO Cont Reviewed date:09/28/2024 02:43:22 PM Interpretation: Performing Lab: Notes/Report: Respiratory Panel w/ SARS-Co [id number] Reviewed date:02/03/2024 10:01:31 AM Interpretation: Performing Lab:[facility] Prieto, [address] [place] [address], [place], Phone - [phone], Director - Néstor Notes/Report: Clinical Information:SRC: Adenovirus [...] Detected Mycoplasma pneumoniae Not Detected Not Detected US Carotid Duplex Bilat Comp lt Reviewed date:12/10/2023 09:55:52 AM Interpretation: Performing Lab: Notes/Report: Original Ordering Provider: PIERO ALFORD [facility] Reason For Referral Reason Referral to Dr. Marry perez ([facility]) - Pt requesting a consult for panniculectomy due to excessive skin rashes in abdomen faxed Diagnosis 1 Excessive and redund ant skin and subcutaneous tissue (L98.7) Referral Organization [facility] Referring Provider First Name Piero Referring Provider Last Name Feliberto Referring Provider Speciality Nurse Johana vazquez Referred Provider Higinio Lin Referred Provider Specialty Plastic and Reconstructive Surgery General Notes [facility] 08/2023 11:27:13 AM >faxed, [facility] 03/10/2024 10:56:39 AM >TE to provider, Received fax response from [facility]. They will not be able to see the patient. BMI 37.48. BMI requirement is 33 or less for surgery and consult, [facility] 03/13/2024 01:26:38 PM >patient was notified and provider aware. Will close referral since it was denied by facility Referral Priority Routine Reason Persistent stones, w ith fluctuating PTH levels appt? Diagnosis 1 Hypoparathyroidism, unspecified (E20.9) Referral Organization [facility] Referring Provider First Name Piero Referring Provider Last Name Feliberto Referring Provider Speciality Nurse Johana vazquez Referred Provider [place], [facility] Referred Provider Specialty Urology General Notes [facility] 06/04 08:34:35 AM >faxed, [facility] 06/22/2024 10:59:28 AM >Completed [facility] Referral form, [facility] 06/30/2024 09:05:25 AM >Copied from 06/29/24 TE. Devorah called from [facility] stated that patient needs to see Endocrine specialist before being referred to an Endocrine Surgery. Piero Alford 06/29/2024 10:44:29 AM EDT > Can we please update pt on the above and see if she would like to see an Endocrine specialist through [facility] as she has had many providers in that system, [facility] WATERMAN 06/29/2024 11:37:25 AM EDT > patient stated that she was looking to give us a call as [facility] has a kidney stone program called ( Kidney stone program) and gave us the number of head Provider phone [phone] Desmond Acosta. [facility],, Piero Alford 06/29/2024 12:52:40 PM EDT > Can we please refer pt to this provider for recurrent kidney stones, Karime YAN 06/30/2024 09:46:45 AM >Updated and faxed Referral Priority Routine Medications Medication SIG (Take, Route, Frequency, Duration) Notes Start Date End Date Status Dilaudid 2 MG 1 tablet as needed O rally every 6 hrs Active Ekpybungv-Effcdgtwspvx-Ahrh esterone 0.125mg - 0.25mg - 75mg 1 gm applied daily to inner thighs topical daily; Duration: 30 days Active Tamsulosin HCl 0.4 MG 1 capsule Oral prn with kidney stone; Duration: 14 days Active Triamcinolone Acetonide 0.025 % 1 application to affected area Externally Once a day; Duration: 7 days 10/18/2023 Active Xyzal Allergy 24HR 5 MG 1 tablet in the evening Orally Once a day; Duration: 30 day(s) Active Losartan Potassium 50 MG TAKE 1 TABLET B Y MOUTH DAILY; Duration: 90 Active Xopenex HFA 45 MCG/ACT 1 puff Inhalation every 6 hrs As needed 06/25/2023 Active Propranolol HCl 10 MG TAKE 1 TABLET BY M OUTH THREE TIMES DAILY; Duration: 90 Active Ativan 0.5 MG 1 tablet as needed f or flying Orally Once a day; Duration: 7 days 12/22/2023 Active Immunizations Vaccine Route Administration Date Status Comme nts Influenza, seasonal, injectable, 6-35 months Unknown 01/23/2015 Administered MWDEQ-34-Tsqepj Vaccine Unknown 11/28/2020 Administered RQHHU-80-Oupbml Vaccine Unknown 12/17/2020 Administered *Tdap IM Intramuscular [...] Risk Notes Problem Non-toxic single thyroid nodule (061916878) Nontoxic single thyroid nodule (E04.1) Active confirmed Problem Hypoparathyroidism (80101426) Hypoparathyroidis m, unspecified (E20.9) Active confirmed Problem 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) Active confirmed Problem Vitamin D deficiency (07305382) Vitamin D deficiency, unspecified (E55.9) Active confirmed Problem Mixed hyperlipidemia (397708934) Mixed hyperlipidemia (E78.2) Active confirmed Problem Generalized anxiety disorder (39899155) Generalized anxiety disorder (F41.1) Active confirmed Problem Acute stress reaction (23182307) Acute stress reaction (F43.0) Active confirmed Problem Episodic tension-type headache (329801158) Episodic tension-type headache, not intractable (G44.219) Active confirmed Problem Disorder of sleep-wake cycle (disorder) (630040266) 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) Active confirmed Problem Chronic kidney disease due to hypertension (785807173797116) Hypertensive chronic kidney disease with stage 1 through stage 4 chronic kidney disease, or unspecified chronic kidney disease (I12.9) Active confirmed Problem Atrial premature depolarization (350249833) Atrial premature depolarization (I49.1) Active confirmed Problem Ventricular premature depolarization (407926689) Ventricular premature depolarization (I49.3) Active confirmed Problem Aneurysm of carotid artery (138169410) Aneurysm of carotid artery (I72.0) Active confirmed Problem Allergic rhinitis caused by pollen (disorder) (60104860) Allergic rhinitis due to pollen (J30.1) Active confirmed Problem Mild intermittent asthma (439129863) Mild intermittent asthma, uncomplicated (J45.20) Active confirmed Problem Benign neoplasm of stomach (89232465) Polyp of stomach and duodenum (K31.7) Active confirmed Problem Cholesterolosis of gallbladder (78103877) Cholesterolosis of gallbladder (K82.4) Active confirmed Problem Atopic dermatitis (87151150) Atopic dermatitis, unspecified (L20.9) Active confirmed Problem Sacrococcygeal disorders, not elsewhere classified (M53.3) Active confirmed Problem Fibromyalgia (822905151) Fibromyalgia (M79.7) Active confirmed Problem Chronic kidney disease stage 2 (619907775) Chronic kidney disease, stage 2 (mild) (N18.2) Active confirmed Problem Calculus of kidney (27313394) Calculus of kidney (N20.0) Active confirmed Problem SI - Stress incontinence (88838067) Stress incontinence (female) (male) (N39.3) Active confirmed Problem Menopause (946586998) Menopausal and female climacteric states (N95.1) Active confirmed Problem Cystic disease of liver (45899267) Cystic disease of liver (Q44.6) Active confirmed Problem Paresthesia (finding) (93916344) Paresthesia of skin (R20.2) Active confirmed Problem Attention deficit hyperactivity disorder, predominantly inattentive type (disorder) (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) Attention and concentration deficit (R41.840) Active confirmed Problem Residual cognitive deficit as late effect of cerebrovascular accident (199376134) 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 Problem Body mass index 30.00 to 34.99 (885815184092387) Body mass index [BMI] 31.0-31.9, adult (Z68.31) Active confirmed Problem Body mass index 35.00 to 39.99 (314639462287961) Body mass index [BMI] 36.0-36.9, adult (Z68.36) Active confirmed Problem Body mass index 35.00 to 39.99 (531791721782038) Body mass index [BMI] 37.0-37.9, adult (Z68.37) Active confirmed Problem Transformed migraine (disorder) (435408705) Chronic migraine with aura, not intractable, without status migrainosus (G43.E09) Active confirmed Vital Signs Heart Rate 93 /min 09/25/2024 Temperature 97.0 degrees Fahrenheit 09/25/2024 Oximetry 99 % 09/25/2024 Blood pressure diastolic 74 mm Hg 09/25/2024 Height 5 ft 2 in in 09/25/2024 Blood pressure systolic 124 mm Hg 09/25/2024 Weight 204.8 lbs 09/25/2024 BMI 37.45 kg/m2 09/25/2024 Encounters Encounter Location Date Provider Diagnosis [facility] [address] [place] [address] [id number] 12/22/2023 Piero Alford Acute stress reactio n [...] Calculus of kidney N20.0 [facility] [address] [id number] 02/01/2024 Piero Alford Acute upper respirat ory infection, unspecified J06.9 and Acute frontal sinusitis, unspecified J01.10 [facility] [address] [id number] 03/09/2024 Piero Alford Hypertensive chronic kidney disease [...] and Mixed hyperlipidemia E78.2 [facility] [address] [id number] 06/21/2024 Piero Alford Dysuria R30.0 ; Calc ulus of kidney N20.0 and Hypoparathyroidism, unspecified E20.9 [facility] [address] [id number] 09/25/2024 Piero Alford Encounter for genera l adult medical examination without abnormal findings Z00.00 ; Hypertensive chronic kidney disease with stage 1 through stage 4 chronic kidney disease, or unspecified chronic kidney disease I12.9 ; Chronic kidney disease, stage 2 (mild) N18.2 ; Mild intermittent asthma, uncomplicated J45.20 ; Nontoxic single thyroid nodule E04.1 ; Episodic tension-type headache, not intractable G44.219 ; Excessive and redundant skin and subcutaneous tissue L98.7 ; Fibromyalgia M79.7 ; Menopausal and female climacteric states N95.1 ; Polyp of stomach and duodenum K31.7 ; Cholesterolosis of gallbladder K82.4 ; Calculus of kidney N20.0 ; Mixed hyperlipidemia E78.2 ; Hypoparathyroidism, unspecified E20.9 ; Sacrococcygeal disorders, not elsewhere classified M53.3 ; Body mass index [BMI] 37.0-37.9, adult Z68.37 ; Vitamin D deficiency, unspecified E55.9 ; Encounter for screening for malignant neoplasm of colon Z12.11 ; Encounter for screening mammogram for malignant neoplasm of breast Z12.31 ; Encounter for screening for osteoporosis Z13.820 ; Encounter for screening for cardiovascular disorders Z13.6 ; Encounter for immunization Z23 ; Encounter for antibody response examination Z01.84 and Encounter for screening for other viral diseases Z11.59 [facility] [address] [id number] 12/10/2023 Piero Liu MD [address] [id number] 02/03/2024 Piero Liu MD [address] [id number] 03/10/2024 Piero Liu MD [address] [id number] 04/10/2024 Piero Liu MD [address] [id number] 05/03/2024 Piero Liu MD [address] [id number] 06/29/2024 Piero Liu MD [address] [id number] 09/25/2024 Piero Liu MD [address] [id number] 09/28/2024 Piero Liu MD [address] [id number] 10/02/2024 Piero Liu MD [address] [id number] 10/18/2024 Piero Alford Body mass index [BMI ] 37.0-37.9, adult Z68.37 [facility] [address] [id number] 01/25/2024 Piero Alford Body mass index [BMI ] 36.0-36.9, adult Z68.36 [facility] [address] [id number] 02/09/2024 Piero Alford Chronic migraine wit h aura, not intractable, without status migrainosus G43.E09 [facility] [address] [id number] 02/10/2024 Piero Alford [facility] [address] [id number] 02/10/2024 Piero Alford [facility] [address] [id number] 02/17/2024 Piero Alford Menopausal and femal e climacteric states N95.1 [facility] [address] [id number] 03/24/2024 Piero Liu MD [address] [id number] 03/24/2024 Piero Alfrod [facility] [address] [id number] 05/02/2024 Piero Alford [facility] [address] [id number] 06/13/2024 Piero Alford Hypertensive chronic kidney disease with stage 1 through stage 4 chronic kidney disease, or unspecified chronic kidney disease I12.9 [facility] [address] [id number] 06/23/2024 Piero Alofrd Dysuria R30.0 [facility] [address] [id number] 10/02/2024 Piero Alford Chronic migraine wit h aura, not intractable, without status migrainosus G43.E09 [facility] [address] [id number] 10/02/2024 Piero Alford Chronic migraine wit h aura, not intractable, without status migrainosus G43.E09 [facility] [address] [id number] 10/20/2024 Piero Alford Hypertensive chronic kidney disease with stage 1 through stage 4 chronic kidney disease, or unspecified chronic kidney disease I12.9 Assessments Encounter Date Diagnosis (ICD Code) Assessment Notes Treatment Notes Treatment Clinical Notes Section Notes 02/01/2024 Acute frontal sinusitis, unspecified (ICD-10 - [...] panel in office today for further evaluation 02/17/2024 Menopausal and female climacteric states (ICD-10 - N95.1) 10/18/2024 Body mass index [BMI] 37.0-37.9, adult (ICD-10 - Z68.37) 10/20/2024 Hypertensive chronic kidney disease with stage 1 through stage 4 chronic kidney disease, or unspecified chronic kidney disease (ICD-10 - I12.9) 12/22/2023 Acute stress reaction (ICD-10 - F43.0) [...] and encouraged patient to look into the [facility] program online to further assist with coping strategies and stress management 12/22/2023 Hypertensive chronic kidney disease with stage 1 through stage 4 chronic kidney disease, or unspecified chronic kidney disease (ICD-10 - I12.9) BP stable at this time and pt to continue current medication regimen 10/02/2024 Chronic migraine with aura, not intractable, without status migrainosus (ICD-10 - G43.E09) 10/02/2024 Chronic migraine with aura, not intractable, without status migrainosus (ICD-10 - G43.E09) 09/25/2024 Hypertensive chronic kidney disease with stage 1 through stage 4 chronic kidney disease, or unspecified chronic kidney disease (ICD-10 - I12.9) Blood pressure with slight elevated, but pt is notably upset as she had many things she wanted to discuss and shut down after being made aware that this was a AWV, and we could change her to an urgent visit and pt declined wanting that. This made a large barrier to an effective visit today. Suspect her elevation was related to her mood during today's visit and her visible mood change once she was checked in for her visit. Patient to remain on current medication regimen and will reassess BP at a later visit 09/25/2024 Encounter for general adult medical examination without abnormal findings (ICD-10 - Z00.00) General healthcare up-to-date. Will obtain update routine labs. Plan will be for annual in 1 year 06/23/2024 Dysuria (ICD-10 - R30.0) 06/21/2024 Calculus of kidney (ICD-10 - N20.0) Patient recently underwent removal of left sided kidney stone with stent placement (no Urology notes to review from her Urologist during today's visit). Patient's stent did fall out which led her to have urinary retention and a recent ER visit. She continues to have recurrent stones and previous findings of elevated calcium and PTH levels which did normalize at one point, and now are noted to be low. Patient would benefit from an evaluation by Dr. Kenney given concerns of parathyroid involvement. Patient agreeable to also complete a CT scan of her abdomen for further evaluation of persistent stones given her continued discomfort without significant findings on exam today 06/21/2024 Dysuria (ICD-10 - R30.0) Reviewed with patient her recent ER visits related to her inability to void post stent removal as well as persistent and recurrent kidney stones located to both kidneys. Will obtain an updated urinalysis with culture to ensure full resolution of previous UTI. Will also empirically begin treatment with ciprofloxacin to see if this can further improve her symptoms while we wait for culture as I would not want patient to develop pyelonephritis should she have persistent UTI without proper treatment. Patient agreeable to begin this treatment as well as follow-up with urology at 3 PM today to discuss her symptoms 06/13/2024 Hypertensive chronic kidney disease with stage 1 through stage 4 chronic kidney disease, or unspecified chronic kidney disease (ICD-10 - I12.9) 03/09/2024 Hypertensive chronic kidney disease with stage [...] to ensure adequate level at this time 02/09/2024 Chronic migraine with aura, not intractable, without status migrainosus (ICD-10 - G43.E09) 01/25/2024 Body mass index [BMI] 36.0-36.9, adult (ICD-10 - Z68.36) 03/09/2024 Excessive and redundant skin and subcutaneous tissue (ICD-10 - L98.7) Patient continues to work on lowering her BMI and weight loss but has noticed excess skin around the requesting referral to Dr. Lin for consultation of panniculectomy 06/21/2024 Hypoparathyroidism, unspecified (ICD-10 - E20.9) See plan above.Patient would benefit from further evaluation by Dr. Hernandez given recurrent kidney stones and previous elevation in calcium and PTH levels, which are now noted to be low per recent ER visit. Patient agreeable with this referral 09/25/2024 Chronic kidney disease, stage 2 (mild) (ICD-10 - N18.2) Previous GFR noted to be in the 80s. Will repeat GFR level to ensure adequate level at this time 12/22/2023 Chronic kidney disease, stage 2 (mild) (ICD-10 - N18.2) Previous GFR noted to be in the 80s. 12/22/2023 Body mass index [BMI] 36.0-36.9, adult (ICD-10 - Z68.36) Discussed with patient her increased stress level which is going to cause a barrier in her weight loss. Patient to work on coping strategies and continue to use phentermine to assist with lowering her BMI and weight loss. 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 Plan will be to repeat ultrasound to ensure nodules have not grown in size 12/22/2023 Polyp of stomach and duodenum (ICD-10 - K31.7) Pt is followed by GI (Dr. Ochoa) due to recent removal of stomach polyps. 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 Plan will be to repeat ultrasound next year to ensure nodules have not grown in size 09/25/2024 Episodic tension-type headache, not intractable (ICD-10 - G44.219) Stable and pt to continue tracking her headaches and should her headaches become more frequent or severe, pt aware to follow up to discuss further management options 09/25/2024 Excessive and redundant skin and subcutaneous tissue (ICD-10 - L98.7) Patient continues to work on lowering her BMI and weight loss and was previously referred to Dr. Lin for consultation of panniculectomy per patient's request 03/09/2024 Episodic tension-type headache, not intractable (ICD-10 [...] week given fidings of a gallbladder polyp. 12/22/2023 Calculus of kidney (ICD-10 - N20.0) Patient denies any concerning symptoms related to history of kidney stones. Patient to continue seeing her urologist as scheduled due to recurrent kidney stones 03/09/2024 Fibromyalgia (ICD-10 - M79.7) Stable at present time and pt to follow up should she have a Fibro flare for further acute management of her discomfort 09/25/2024 Fibromyalgia (ICD-10 - M79.7) Stable at present time and pt to follow up should she have a Fibro flare for further acute management of her discomfort 09/25/2024 Menopausal and female climacteric states (ICD-10 - N95.1) Stable patient to continue on topical compounded HRT as she has found this has helped improve her menopausal symptoms such as hot flashes 03/09/2024 Menopausal and female climacteric states (ICD-10 - N95.1) Stable patient to continue on topical compounded HRT as she has found this has helped improve her menopausal symptoms such as hot flashes 09/25/2024 Polyp of stomach and duodenum (ICD-10 - K31.7) Pt is followed by GI (Dr. Ochoa) for previous removal of stomach polyps. Patient to follow-up with this specialist as scheduled to ensure full resolution of polyps post surgical intervention and to determine if any additional imaging or follow up is required 03/09/2024 Calculus of kidney (ICD-10 - N20.0) [...] full resolution of polyps post surgical intervention 09/25/2024 Cholesterolosis of gallbladder (ICD-10 - K82.4) Gallbladder polyp noted on previous abdominal u/s, and pt is scheduled to see a general surgeon [place] for further evaluation but states she has paused on scheduling this surgery until a later date 03/09/2024 Cholesterolosis of gallbladder (ICD-10 - K82.4) Gallbladder polyp noted on previous abdominal u/s, and pt is scheduled to see a general surgeon [place] for further evaluation and to determine if her gallbladder should be removed due to this finding 09/25/2024 Calculus of kidney (ICD-10 - N20.0) Patient with a history of kidney stones and is followed by urology for recent findings of recurrent left kidney stones. Patient was very upset as her specialist ordered a CT Scan and our office did not have results to review today. Discussed that the ordering provider should review this with pt. Patient kept saying she gave the office name, and they faxed it for us and kept reminding patient that they may not have faxed it, or we did not receive it but either way, she should review the findings with the specialist that ordered the imaging 03/09/2024 Mixed hyperlipidemia (ICD-10 - E78.2) Previous LDL noted to be 130. Patient's Rebollar score was noted to be 1.7%. Patient cardiovascular risk at this time is low we will continue to monitor lipid levels as patient works through lowering her BMI and reaching her weight loss goals 09/25/2024 Mixed hyperlipidemia (ICD-10 - E78.2) Previous LDL noted to be 130. Patient's previous Rebollar score was noted to be 1.7%. Will obtain updated lab work and will recalculate patient's progress score once lipid panel is back to determine next steps in managing lipid levels 09/25/2024 Hypoparathyroidism, unspecified (ICD-10 - E20.9) Patient with a previous history of elevated PTH levels. Most recent PTH levels have been within normal range but given her kidney stone history will obtain PTH level as well as reassess calcium levels 09/25/2024 Sacrococcygeal disorders, not elsewhere classified (ICD-10 - M53.3) During today's visit patient became very confrontational as she suggested she had right hip pain at check-in. Patient states she did not want to talk outside of the annual but her right hip and back have been causing much discomfort. On exam there were no significant findings to suspect that this is related to her lumbosacral region where she would need further imaging with an MRI. Suspect that patient does have tight paraspinous and gluteal muscles which may be causing some irritation to the sciatic nerve and she may have underlying SI joint dysfunction. Encouraged patient to begin stretching. Patient was not very receptive to any conversation during today's visit which made this difficult to make a plan or treat patient effectively. Discussed with patient that we can revisit this at a later date once patient is less dysregulated, angry, and would be more receptive to guidance 09/25/2024 Body mass index [BMI] 37.0-37.9, adult (ICD-10 - Z68.37) Spent much time discussing patient's concerns of elevated BMI and weight gain. Discussed injectable options and patient was very dysregulated and visibly upset from the start of today's visit. Discussed that I would like pt to be seen by specialist for gallbladder polyp first and patient become argumentative that she wanted to lose the weight and start this injectable as soon as possible. I discussed the potential side effects and patient declined wanting to start this medication as she can't have side effects. Discussed there is no guarantee of these side effects occurring, but patient continued to say no over and over again. Discussed with patient that I am happy to have further discussions regarding her concerns of weight once she is in a better place to hear the information and I can even offer additional treatment options and patient states she will just stay on phentermine even though she has not seen weight loss results that she had hoped for 09/25/2024 Vitamin D deficiency, unspecified (ICD-10 - E55.9) Will check level to verify that there is no deficiency 09/25/2024 Encounter for screening for malignant neoplasm of colon (ICD-10 - Z12.11) Patient has not followed up GI as recommended for repeating an endoscopy and colonoscopy every 1-3 years as recommended by GI. Will place a referral to GI at this time 09/25/2024 Encounter for screening mammogram for malignant neoplasm of breast (ICD-10 - Z12.31) Up-to-date on breast cancer screening 09/25/2024 Encounter for screening for osteoporosis (ICD-10 - Z13.820) Pt admits to not completing her DEXA as previously ordered. Pt to schedule her DEXA to ensure she is up-to-date on osteoporosis screenings, briana given her total hysterectomy status at an early age 0609/25/2024 Encounter for screening for cardiovascular disorders (ICD-10 - Z13.6) Blood pressure stable. Will check for comorbidity of hyperlipidemia and hyperglycemia to further assess risk 09/25/2024 Encounter for immunization (ICD-10 - Z23) Reviewed vaccine status with patient and patient was visibly upset during today's visit and stating often that she did not know what to say but she did not want to discuss anything over what an annual wellness visit would allow. Patient would benefit from her shingles series but will have to discuss things at a later date as patient was visibly upset, argumentative, and defensive which led to many confrontations during today's visit and she was not accepting of much information today 09/25/2024 Encounter for antibody response examination (ICD-10 - Z01.84) Titers have been checked in the past and there is immunity to rubeola 09/25/2024 Encounter for screening for other viral diseases (ICD-10 - Z11.59) Will screen for hepatitis C as per general recommendation Plan Of Treatment Pending Test Test Name Order Date DEXA 07/20/2022 MAMMOGRAM, SCREENING 07/20/2022 MAMMOGRAM, SCREENING 07/26/2023 ACTH 01/27/2023 COMPLETE URINALYSIS 06/08/2022 CORTISOL 30 MIN POST 01/27/2023 CORTISOL 60 MIN POST 01/27/2023 TESTOSTERONE 08/17/2022 URINARY MICROALBUMIN 06/08/2022 Dexa Bone Density (Axial) 08/25/2022 SURE SWAB VAGINOSIS VAGINITIS PLUS 01/27 SURE SWAB VAGINOSIS VAGINITIS PLUS 12/03 HOLTER MONITOR, 15 DAYS, INTERPRETATION 07/30/2022 US Thyroid 09/25/2024 Urinalysis, Complete-[id number] 09/25/2024 CBC With Differential/Platelet-[id number] PTH, Intact-[id number] 09/25/2024 Vitamin D, 85-Nsdqefu-[id number] 09/25/2024 Albumin/Creatinine Ratio,Urine-[id number] HCV Antibody RFX to Quant PCR-[id number] Comp. Metabolic Panel ([id number] 2024 LP+Non-HDL Cholesterol-[id number] 09/25/2024 UA/M w/rflx Culture, Routine-[id number] 07/05 TSH reflex to [id number] 09/25/2024 Next Appt Details Provider Name:Piero Alford , 01/16/2025 08:30:00 AM, [address] [place] [address], [phone], Provider Name:Piero Alford , 10/01/2025 08:30:00 AM, [address] [place] [address], [id number], Insurance Providers Payer Name Payer Address Payer Phone Subscriber Number Group Number Insured Name Patient Relationship to Insured Coverage Start Date Coverage End Date BC Federal [address] [place] [address] [id number] Patti Drake Self - patient is the insured Medical (General) History Medical History History ICD Code asthma - moderate persistent hypertension fibromyalgia PAC's and PVC's kidney stones 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
--- OUTSIDE RECORDS SUMMARY | 2024-12-08 09:55 | XMS_ITS | Encounter Summary ---
Author Organization [facility] Address [address] [place] [phone] Phone Care Team Providers Care Injection Molding Machine Setter Name Role Phone Ynes Phipps SNOUT PULLER Primary Care Provider [phone] Ynes Phipps SNOUT PULLER Primary Care Provider [phone] Jane Dao SNOUT PULLER Primary Care Provider [phone] Encounter Details Date Type Department Care Team (Late st Contact Info) Description 08/02/2015 Documentation [facility] Imaging [address] [place] [address] Monik Demarco RN [address] [place] [id number] Social History Tobacco Use Types Packs/Day Years Used Date Smoking Tobacco: Never Alcohol Use Standard Drinks/Week Comments No 0 (1 standard drink = 0.6 oz pur e alcohol) Comments Unknown Sex and Gender Information Value Date Recorded Sex Assigned at Not on file Legal Sex Female 2:58 PM EDT Gender Identity Not on file Sexual Orientation Not on file 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 Aneurysm Imaging: MRI/MRA Discussion: Imaging is stable. Dr Gabriel had reassured the pt in clinic that upon his review, he does not see an aneurysm, explaining this as a normal variation of her cerebral vasculature, which the conference team was in a agreement. Plan: Imaging is stable. Next f/u: 5 yr MRI/MRA 12/2020 documented in this encounter Plan of Treatment Upcoming Encounters Date Type Department Care Team (Late st Contact Info) Description 02/01/2025 8:00 AM EDT Appointment [facility], Nuclear Medicine - [address] [address] Desmond Acosta MD [address] [place] [address] [email or web address] documented as of this encounter Visit Diagnoses Not on filedocumented in this encounter Additional Health Concerns Infection Onset Date Last Indicated Resolved Time CoV-Risk 10/13/2019 10/14/2019 10/27/2019 3:34 AM EDT CoV-Exposed Comment:Recent close contact documented in the Travel/Symptom Screening Form 05/16/2021 05/16/2021 05/27/2021 1:[address] documented as of this encounter Care Teams Injection Molding Machine Setter Relationship Specialty Start Date End Date Ynes Phipps NP [address] [place] [address] PCP - General 07/17/15 11/10/17 Ynes Phipps NP [address] [place] [address] PCP - General Geriatric Psychiatry 11/11/17 07/09/24 Jane Dao NP [address] [place] [id number] PCP - General Nurse Practitioner 4/7/25 documented as of this encounter Additional Source Comments The information contained in this document represents components of the legal health record. It is not the complete legal health record.[facility]
--- OUTSIDE RECORDS SUMMARY | 2024-12-08 09:55 | XMS_ITS | Clinical Summary ---
Author Organization [facility] Address [address] [place] [address] Care Team Providers Care Player Piano Technician Name Role Phone Jane Dao MD Primary Care Provider [phone] Allergies Active Allergy Reactions Criticality Noted Date [...] Low 11/26/2023 Phaseolus Anaphylaxis High 11/26/2023 Medications losartan (COZAAR) 50 MG tablet Take 1 tablet (50 mg total) by mouth every morning. 07/29/2023 Active HYDROcodone-rosanna taminophen (VICODIN) 5-300 MG per tablet Take 1 [...] 2 (two) times a day. Active Multiple Vitamins-Minera ls (b jdjvamg-F-T-zin c) tablet Take 1 tablet by mouth every [...] NEEDED 09/16/2023 Active ibuprofen (MOTRIN) 800 mg tabletIndicatio ns:Calculus of kidney,Left flank pain Take 1 tablet (800 mg total) by mouth 3 times daily (every 8 hours) as needed for mild pain. 30 tablet 05/23/2024 Active ondansetron (ZOFRAN) 4 MG tabletIndicatio ns:Left flank pain Take 1 tablet (4 mg total) by mouth 3 times daily (every 8 hours) as needed for nausea or vomiting. 10 tablet 05/23/2024 Active acetaminophen (TYLENOL) 325 MG tablet Take 3 tablets (975 mg total) by mouth. 03/17/2023 Active SUMAtriptan (IMITREX) 25 MG tablet TAKE 1 TABLET BY MOUTH EVERY 2 TO 4 HOURS NEEDED FOR MIGRAINE HEADACHE. DO NOT EXCEED 8 DOSES IN 24 HOURS. Active phenazopyridine (PYRIDIUM) 200 MG tabletIndicatio ns:Calculus of kidney Take 1 tablet (200 mg total) by mouth 3 (three) times a day as needed for bladder spasms. 30 tablet 06/14/2024 Active phenazopyridine (PYRIDIUM) 200 MG tabletIndicatio ns:Calculus of kidney Take 1 tablet (200 mg total) by mouth 3 (three) times a day in the morning, mid-day and early evening. 10 tablet 06/14/2024 Active tamsulosin (FLOMAX) 0.4 MG capsuleIndicati ons:Calculus of kidney Take 1 capsule (0.4 mg total) by mouth daily. 14 capsule 06/14/2024 Active HYDROmorphone (DILAUDID) 2 MG tabletIndicatio ns:Calculus of kidney,Left flank pain Take 1 tablet (2 mg total) by mouth 3 times daily (every 8 hours) as needed for severe pain. Max Daily Amount: 6 mg 10 tablet 06/21/2024 Active proMETHAZINE (PHENERGAN) 12.5 MG tabletIndicatio ns:Calculus of kidney Take 1 tablet (12.5 mg total) by mouth 4 times daily (every 6 hours) as needed for nausea or vomiting. 10 tablet 06/21/2024 Active Active Problems Problem Noted Date Diagnosed [...] Encounters Date Type Department Care Team Description 11/23/[address] [facility] Surgical Oncology [place] [address] [facility] [address] [place] [address] Hope Peralta MD 10/03/[address] [facility] Surgical Oncology [place] [address] [facility] [address] [place] [address] Hope Peralta MD 09/12/2024 Telephone [facility] Cancer Genetics [address] [place] [address] Drew Forman LCGC Results 09/08/2024 Telephone [facility] Cancer Genetics [address] [place] [address] Drew Forman LCGC Results from Last 3 Months Family History Medical History Relation Name Comments Anxiety disorder Daughter Asthma Daughter Asthma Father COPD Father Hypertension Father Skin cancer Father Tobacco Use Father Alzheimer's disease Maternal Aunt 1 Maci Breast cancer Maternal Aunt 3 [place] diagnosed w ith recurrence vs ipsilateral primary breast cancer at age 69, no other details Breast cancer Maternal Cousin Maternal 1st Cousin repo rtedly diagnosed with stage III disease; FREDERIC at age 41 Cancer, other Maternal Grandmother o f metastatic FARM REPORTER-associated cancer, no other details Lung cancer Maternal Uncle 2 Jayson of met astatic disease No Known Problems Mother Aneurysm Paternal Aunt Elvira Liver cancer Paternal Grandfather Colon cancer Paternal Grandmother reporte dly treated through hemicolectomy, no other details HIV Paternal Uncle 1 Raji Cancer, other Paternal Uncle 2 David reportedly due to metastatic CRC vs pancreatic cancer, no other details Anemia Sister Lupus Sister Migraines Sister Stroke Sister Asthma Son Relation Name Status Comments Daughter Alive Father Alive Maternal Aunt 1 Maci Alive Maternal Aunt 2 Eleni Alive Maternal Aunt 3 Norma Alive Maternal Cousin Maternal 1st Cousin Alive Maternal Grandfather (Age 85) Maternal Grandmother (Age 85) Maternal Uncle 1 Geraldo Maternal Uncle 2 Jayson Maternal Uncle 3 Michael Alive Mother Alive Paternal Aunt Elvira (Age 36) Paternal Grandfather (Age 78) Paternal Grandmother (Age 75) Paternal Uncle 1 Raji (Age 48) Paternal Uncle 2 David (Age 42) Sister Alive Son Alive Social History Tobacco Use Types [...] more drinks on one occasion? 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 Not on file Not o n file Last Filed Vital Signs Vital Sign Reading Time Taken Comments Blood Pressure 114/81 07/31/2024 8:42 AM EDT Pulse 75 07/31/2024 8:42 AM EDT Temperature 36.8 C (98.2 F) 06/15/2024 3:22 PM EDT Respiratory Rate 18 06/15/2024 3:22 PM EDT Oxygen Saturation 97% 07/31/2024 8:42 AM EDT Inhaled Oxygen Concentration - - Weight 91.2 kg (201 lb) 07/31/2024 8:42 AM EDT Height 157.5 cm (5' 2 ) 07/31/2024 8:42 AM EDT Body Mass Index 36.76 07/31/2024 8:42 AM EDT Plan of Treatment Health Maintenance Due Date Last Done Comments Hepatitis C Virus Screening 1975 HIV Screening 1986 DTaP/Tdap/Td Vaccines (1 - Tdap) 01/07/1992 Hepatitis B Vaccines (1 of 3 - 19+ 3-dose series) 01/07/1992 Pneumococcal Vaccines 50+ (1 of 2 - PCV) 01/07/1992 Pap Smear (Ages 21-65) 1994 Mammogram 2013 Colonoscopy 2018 Zoster (Shingles) Vaccine (1 of 2) 2023 COVID-19 Vaccine (3 - season) 2023, 11/28/2020 Influenza Vaccine 11/03/2024 01/23/2015 Medical Devices Implanted Type Area Mixer Foam Rubber Device Identifier Shelf Expiration Date Model / Serial / Lot [id number] Stent Ureteral 6fr 26cm Taper Tip Bldr Alvino Lp Contour Hdr+ - [id number] Implanted:Qty : 1 on 06/14/2024 by Casey García MD at [facility] Explanted: by Casey García MD (Quantity not on file) Stent Left: Ureter Pulsity JOSE [id number] 01/24/2027 [id number] 30 / / [id number] Insurance * Guarantor: Patti Drake Account Type Relation to Patient Date of Phone Billing Address Personal/Family Self [address] [place] [address] [facility] Care Teams Player Piano Technician Relationship Specialty Start Date End Date Jane Dao MD [address] [place] [address] PCP - General General Medicine 05/31/23
--- OUTSIDE RECORDS SUMMARY | 2024-12-08 09:56 | XMS_ITS | Encounter Summary ---
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
--- OUTSIDE RECORDS SUMMARY | 2024-12-08 09:56 | XMS_ITS | Encounter Summary ---
Author Organization [facility] Address [address] [place] [phone] Phone Care Team Providers Care Supervisor Sample Preparation Name Role Phone Ynes Phipps SWEATER DESIGNER Primary Care Provider [phone] Jane Dao SWEATER DESIGNER Primary Care Provider [phone] Encounter Details Date Type Department Care Team (Late Contact Info) Description 10/13/2019 Transcribe Orders Virtual Department [address] [place] [id number] Clara Moy MD [address] [place] [phone] [email or web address] Cough (Primary Dx); SOB (shortness of breath); Chills; Fatigue, unspecified type Social History Tobacco Use Types Packs/Day Years Used Date Smoking Tobacco: Never Alcohol Use Standard Drinks/Week Comments No 0 (1 standard drink = 0.6 oz pur e alcohol) Comments No Sex and Gender Information Value Date Recorded Sex Assigned at Not on file Legal Sex Female 2:58 PM EDT Gender Identity Not on file Sexual Orientation Not on file 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 Not on file Not on file documented as of this encounter Plan of Treatment Upcoming Encounters Date Type Department Care Team (Late Contact Info) Description 02/01/2025 8:00 AM EDT Appointment [facility], Nuclear Medicine - [address] [address] Desmond Acosta MD [address] [place] [address] [email or web address] documented as of this encounter Results * COVID-19 PCR Order (10/14/2019 12:52 PM EDT) Specimen Source NASOPHARYNGEAL SWAB (SWEATER DESIGNER) [facility] COVID-19 Comment CHILLS, FATIGUE [facility] COVID Testing Status Sent to [facility] Other 10/14/2019 12:5 2 PM EDT 10/14/2019 1:26 PM EDT us Clara Moy MD BODY FLUIDS AND STOOLS ORDER HANY Final Result [facility] [address] [place] [address] documented in this encounter Visit Diagnoses Diagnosis Cough- Primary SOB (shortness of breath) Shortness of breath Chills Chills (without fever) Fatigue, unspecified type documented in this encounter Additional Health Concerns Infection Onset Date Last Indicated Resolved Time CoV-Risk 10/13/2019 10/14/2019 10/27/2019 3:34 AM EDT CoV-Exposed Comment:Recent close contact documented in the Travel/Symptom Screening Form 05/16/2021 05/16/2021 05/27/2021 1:[address] documented as of this encounter Care Teams Supervisor Sample Preparation Relationship Specialty Start Date End Date Ynes Phipps NP [address] [place] [address] PCP - General Geriatric Psychiatry 11/11/17 07/09/24 Jane Dao NP [address] [place] [phone] [email or web address] PCP - General Nurse Practitioner 07/10/24 documented as of this encounter Additional Source Comments The information contained in this document represents components of the legal health record. It is not the complete legal health record.[facility]
--- OUTSIDE RECORDS SUMMARY | 2024-12-08 09:56 | XMS_ITS | Encounter Summary ---
Author Organization [facility] Address [address] [place] [address] Phone Care Team Providers Care Set Painter Name Role Phone Ynes Phipps INTERNATIONAL ORGANIZER Primary Care Provider [phone] Jane Dao INTERNATIONAL ORGANIZER Primary Care Provider Encounter Details Date Type Department Care Team (Late st Contact Info) Description 10/17/2019 Transcribe Orders Virtual Department [address] [place] [address] Clara Moy MD [address] [place] [phone] [email or web address] Cough (Primary Dx) Social History Tobacco Use Types [...] 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 Not on file Not on file documented as of this encounter Plan of Treatment Upcoming Encounters Date Type Department Care Team (Late st Contact Info) Description 02/01/2025 8:00 AM EDT Appointment [facility], Nuclear Medicine - [address] [address] Desmond Acosta MD [address] [place] [phone] [email or web address] documented as of this encounter Results * XR CHEST PA AND LATERAL 2 VIEWS (10/18/2019 8:58 AM EDT) Anatomical Region Laterality Modality Chest Computed Radiogr aphy 10/18/2019 10:0 3 AM EDT Impressions 10/18/2019 10:04 AM EDT No evidence of pneumonia or pulmonary edema. Narrative 10/18/2019 10:04 AM EDT TECHNIQUE: XR CHEST PA AND LATERAL 2 VIEWS COMPARISON: 07/11/2015 FINDINGS: Lines/tubes: None. Lungs: The lungs are well inflated and clear. There is no evidence of pneumonia or pulmonary edema. Pleura: There is no pleural effusion or pneumothorax. Heart and mediastinum: The heart and the mediastinum are normal. Bones: The thoracic skeleton is unremarkable. Procedure Note Alex Garcia MD, MICHELA - 10/18/2019 TECHNIQUE: XR CHEST PA AND LATERAL 2 VIEWS COMPARISON: 07/11/2015 FINDINGS: Lines/tubes: None. Lungs: The lungs are well inflated and clear. There is no evidence ofpneumonia or pulmonary edema. Pleura: There is no pleural effusion or pneumothorax. Heart and mediastinum: The heart and the mediastinum are normal. Bones: The thoracic skeleton is unremarkable. IMPRESSION: No evidence of pneumonia or pulmonary edema. us Clara Moy MD IMG XR CHEST Final Result documented in this encounter Visit Diagnoses Diagnosis Cough- Primary Cough documented in this encounter Additional Health Concerns Infection Onset Date Last Indicated Resolved Time CoV-Risk 10/13/2019 10/14/2019 10/27/2019 3:34 AM EDT CoV-Exposed Comment:Recent close contact documented in the Travel/Symptom Screening Form 05/16/2021 05/16/2021 05/27/2021 1:[address] documented as of this encounter Care Teams Set Painter Relationship Specialty Start Date End Date Ynes Phipps NP [address] [place] [address] PCP - General Geriatric Psychiatry 11/11/17 07/09/24 Jane Dao NP [address] [address] PCP - General Nurse Practitioner 07/10/24 documented as of this encounter Additional Source Comments The information contained in this document represents components of the legal health record. It is not the complete legal health record.[facility]
--- OUTSIDE RECORDS SUMMARY | 2024-12-08 09:56 | XMS_ITS | Encounter Summary ---
Author Organization [facility] Address [address] [place] [address] [place] [address] Phone Care Team Providers Care Record Label Intern Name Role Phone Ynes Phipps EXHIBITS MANAGER Primary Care Provider [phone] Jane Dao EXHIBITS MANAGER Primary Care Provider [phone] Encounter Details Date Type Department Care Team (Late st Contact Info) Description 11/12/2020 Transcribe Orders [facility] Neuro[place] [address], [address] [place] [address] Monik Demarco RN [address] [place] [phone] [email or web address] Social History Tobacco Use Types Packs/Day Years [...] Info) Description 02/01/2025 8:00 AM EDT Appointment [facility], Nuclear Medicine - [address] [address] Desmond Acosta MD [address] [place] [address] [email or web address] documented as of this encounter Visit Diagnoses Not on filedocumented in this encounter Additional Health Concerns Infection Onset Date Last Indicated Resolved Time CoV-Exposed Comment:Recent close contact documented in the Travel/Symptom Screening Form 05/16/2021 05/16/2021 05/27/2021 1:[address] documented as of this encounter Care Teams Record Label Intern Relationship Specialty Start Date End Date Ynes Phipps NP [address] [place] [address] PCP - General Geriatric Psychiatry 11/11/17 07/09/24 Jane Dao NP [address] [address] [email or web address] PCP - General Nurse Practitioner 07/10/24 documented as of this encounter Additional Source Comments The information contained in this document represents components of the legal health record. It is not the complete legal health record.[facility]
== END 2024-12-08 09:46 | disposition home or self-care (01) ==
LOC: HO.HGI 09:08
PROVIDERS: PCP Nurse Practitioner Family; Visit Provider Internal Medicine Gastroenterology
DX: K76.0 Fatty (change of) liver, not elsewhere classified (principal); D13.1 Benign neoplasm of stomach; D12.6 Benign neoplasm of colon, unspecified
CPT/HCPCS: 99214

== ENCOUNTER → 2024-12-08 09:07 | Outpatient (BNVA) | payer BC, SELFPAY | PROVIDERS: PCP Nurse Practitioner Family; Visit Provider Internal Medicine Gastroenterology | DX: D13.1 Benign neoplasm of stomach (principal); K76.0 Fatty (change of) liver, not elsewhere classified; D12.6 Benign neoplasm of colon, unspecified; E66.01 Morbid (severe) obesity due to excess calories; Z68.37 Body mass index [BMI] 37.0-37.9, adult; Z13.89 Encounter for screening for other disorder ==

== ENCOUNTER 2025-02-02 07:19 | Day surgery (SDC) | payer BC, SELFPAY ==
--- OUTSIDE RECORDS SUMMARY | 2015-07-11 | XMS_ITS | Encounter Summary ---
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 Not on file documented as of this encounter Functional Status * Calculated C-SSRS Risk Score (Lifetime/Recent) Answer Date of Assessment Author No Risk Indicated 05/16/2021 12:27 PM Carolyn Mesa RN * [place] Suicide Severity Rating Scale (Screener/Recent Self-Report) Question [...] Info) Description 02/01/2025 8:00 AM EDT Appointment [facility], Nuclear Medicine [address] [address] Desmond Acosta MD [address] [place] [address] [email or web address] documented as of this encounter Procedures Procedure Name Priority Date/Time Associated Diagnosis Comments XR CHEST OUTSIDE (NO INTERPRETATION) Routine 07/11/2015 12:00 AM EDT documented in this encounter Results * XR Chest Outside (No Interpretation) (07/11/2015 12:00 AM EDT) Narrative [facility] [place]G INTERFACES - 07/23/2015 9:08 AM EDT This study is for PACS storage only and not for interpretation. Procedure Note SYSTEMGENERATED, DOCUMENTATION - 07/23/2015 This study is for PACS storage only and not for interpretation. us Laci Gabriel MD IMG OUTSIDE IMAGING W/OUT INTERPRETATION Final Result [facility] [place] IMG INTERFACES documented in [...] It is not the complete legal health record.[facility]
--- OUTSIDE RECORDS SUMMARY | 2015-07-11 00:15 | XMS_ITS | Encounter Summary ---
Author Organization [facility] Address [address] [place] [address] Phone Care Team Providers Care High School Biology Teacher Name Role Phone Unavailable Primary Care Provider Unavailabl e Reason for Visit * MRI/CAT Scan - Closed Specialty Diagnoses / Procedures Referred By Contac t Referred To Contact Radiology Procedures MRI Brain Outside (No Interpretation) Laci Gabriel MD [address] [place] [address] Phone: tel: fax: mailto:[email or web address] Referral ID Status Reason Start Date Expiration Date Visits Re quested Visits Authorized [id number] Closed 07/23/2015 07/22/2016 1 1 Encounter Details Date Type Department Care Team ([facility] st Contact Info) Description 07/11/2015 12:15 AM EDT Hospital Encounter [facility] General Imaging [address] [place] [address] Laci Gabriel MD [address] [place] [address] [email or web address] Social History Tobacco Use Types [...] 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 Not on file documented as of this encounter Functional Status * Calculated C-SSRS Risk Score (Lifetime/Recent) Answer Date of Assessment Author No Risk Indicated 05/16/2021 12:27 PM Carolyn Mesa RN * [place] Suicide Severity Rating Scale (Screener/Recent Self-Report) Question [...] Info) Description 02/01/2025 8:00 AM EDT Appointment [facility], Nuclear Medicine - [address] [address] Desmond Acosta MD [address] [place] [address] [email or web address] u documented as of this encounter Procedures Procedure Name Priority Date/Time Associated Diagnosis Comments MRI BRAIN OUTSIDE (NO INTERPRETATION) Routine 07/11/2015 12:15 AM EDT documented in this encounter Results * MRI Brain Outside (No Interpretation) (07/11/2015 12:15 AM EDT) Narrative [facility] INTERFACES - 07/23/2015 9:08 AM EDT This study is for PACS storage only and not for interpretation. Procedure Note SYSTEMGENERATED, DOCUMENTATION - 07/23/2015 This study is for PACS storage only and not for interpretation. Laci Gabriel MD IMG OUTSIDE IMAGING W/OUT INTERPRETATION Final Result [facility] IM INTERFACES documented in this encounter Visit [...] It is not the complete legal health record.[facility]
--- OUTSIDE RECORDS SUMMARY | 2015-07-11 00:30 | XMS_ITS | Encounter Summary ---
Author Organization [facility] Address [address] [place] [address] Phone Care Team Providers Care Oiler And Greaser Name Role Phone Unavailable Primary Care Provider Unavailabl e Reason for Visit * MRI/CAT Scan - Closed Specialty Diagnoses / Procedures Referred By Contac t Referred To Contact Radiology Procedures MRI Brain Outside (No Interpretation) Laci Gabriel MD [address] [place] [address] Phone: tel: fax: mailto:[email or web address] Referral ID Status Reason Start Date Expiration Date Visits Re quested Visits Authorized [id number] Closed 07/23/2015 07/22/2016 1 1 Encounter Details Date Type Department Care Team ([facility] st Contact Info) Description 07/11/2015 12:30 AM EDT Hospital Encounter [facility] General Imaging [address] [place] [address] Laci Gabriel MD [address] [place] [address] [email or web address] Social History Tobacco Use Types Packs/Day Years [...] 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 Not on file documented as of this encounter Functional Status * Calculated C-SSRS Risk Score (Lifetime/Recent) Answer Date of Assessment Author No Risk Indicated 05/16/2021 12:27 PM Carolyn Mesa RN * [place] Suicide Severity Rating Scale (Screener/Recent Self-Report) Question [...] Info) Description 02/01/2025 8:00 AM EDT Appointment [facility], Nuclear Medicine - [address] [address] Desmond Acosta MD [address] [place] [address] [email or web address] u documented as of this encounter Procedures Procedure Name Priority Date/Time Associated Diagnosis Comments MRI BRAIN OUTSIDE (NO INTERPRETATION) Routine 07/11/2015 12:30 AM EDT documented in this encounter Results * MRI Brain Outside (No Interpretation) (07/11/2015 12:30 AM EDT) Narrative [facility] [place]G INTERFACES - 07/23/2015 9:09 AM EDT This study is for PACS storage only and not for interpretation. Procedure Note SYSTEMGENERATED, DOCUMENTATION - 07/23/2015 This study is for PACS storage only and not for interpretation. Laci Gabriel MD IMG OUTSIDE IMAGING W/OUT INTERPRETATION Final Result [facility] IM INTERFACES documented in this encounter Visit [...] the complete legal health record.[facility]
--- OUTSIDE RECORDS SUMMARY | 2024-12-11 04:15 | XMS_ITS ---
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 Name Role Phone Dao, Jane Primary Care Provider Unavailabl e Linda Adan Unavailable [phone] Allergies Allergen (clinical drug ingredient) Drug/Non Drug Allergy documented on EMR Reaction Allergy Type Onset Date Status IV dye (uncoded) Unknown Allergy Act leti amoxicillin / clavulanate Augmentin Unknown Drug Allergy Active sulfamethoxazole / trimethoprim Bactrim Unknown Drug Allergy Active fluconazole Diflucan Unknown Drug Allergy Activ e acetaminophen / oxycodone Percocet Unknown Drug Allergy Active cephalexin Cephalexin Unknown Drug Allergy Activ e codeine Codeine Unknown Drug Allergy Active fluconazole Fluconazole Unknown Drug Allergy Act leti oxycodone oxyCODONE Unknown Drug Allergy Active REASON FOR VISIT Patient is in office for weight management consult Medications Medication SIG (Take, Route, Frequency, Duration) Notes Start Date End Date Status Wegovy 0.25 MG/0.5ML 0.5 mL Subcutaneous weekly; Duration: 30 days 12/11/2024 Active Xyzal Active Dilaudid Active Flonase Active Losartan Potassium 50 MG 1 tablet Orally Once a day Active Xopenex Active LORazepam Active Social History Tobacco Use: Social History Observation Description Date Details (start date - stop date) Never Smoker NA - NA Tobacco Control (Standard) Question Answer Notes Tobacco use: Nonsmoker Section Notes: Patient does not live alone Problems Problem Type SNOMED Code ICD Code Onset Dates Problem Status W/U Status Risk Notes Problem Obesity (274862625) Moderate obesity (E66.9) Active confirmed Problem Obese class II (811672329259871 ) BMI 37.0-37.9, adult (Z68.37) Active confirmed Problem Essential hypertension (20474118) Essential hypertension (I10) Active confirmed Problem Fatty liver (094639884) Fatty liver disease, nonalcoholic (K76.0) Active confirmed Problem Mild intermittent asthma (231135740) Mild intermittent asthma without complication (J45.20) Active confirmed Vital Signs Heart Rate 84 /min 12/11/2024 Blood pressure systolic 124 mm Hg 12/12/19 25 Blood pressure diastolic 80 mm Hg 025 Weight 208.1 lbs 12/11/2024 BMI 37.45 kg/m2 12/11/2024 Height 62.5 in 12/11/2024 Oximetry 97 % 12/11/2024 Encounters Encounter Location Date Provider Diagnosis [facility] [address] [facility] [address] [place] [address] 12/11/2024 Linda Normoyle Moderate obesity E66 .9 ; BMI 37.0-37.9, adult Z68.37 ; Dietary counseling and surveillance Z71.3 ; Essential hypertension I10 ; Fatty liver disease, nonalcoholic K76.0 ; Mild intermittent asthma without complication J45.20 and Encounter for examination of blood pressure without abnormal findings Z01.30 Assessments Encounter Date Diagnosis (ICD Code) Assessment Notes Treatment Notes Treatment Clinical Notes Section Notes 12/11/2024 Moderate obesity (ICD-10 - E66.9) Vonda is a 49-year-old female who presents for weight management consult. Medical history, labs, allergies, medications, and social history reviewed with the patient. Provided education on healthy diet and lifestyle which includes high-protein, low carbohydrate, high-fiber, and a variety of fruits and vegetables. Patient encouraged to exercise with emphasis on resistance training minimum 3 times per week to maintain muscle mass and cardio to burn fat. All patient questions answered. Patient will follow-up in 4 weeks for weight management. #Obesity: 12/11/2024: Weight 208.1 pounds, BMI 37.4. She has trialed phentermine for 4 months recently with some success but has plateaued. She follows a overall healthy lifestyle going to the gym regularly and focusing on protein, home-cooked meals, vegetables. She did have a setback due to kidney infection requiring surgery in June. Discussed protein, exercise, hydration goals. Discussed oral and injectable medications. Unable to start phentermine due to timeframe, unable to tolerate Contrave due to intolerance of Wellbutrin. Given comorbidity of MASH, plan to start Wegovy 0.25 mg weekly injections. Educated on side effects including constipation, nausea, reflux, heartburn. Will submit PA today. Follow-up in 4 weeks. #MASH: Plan to start Wegovy 0.25 mg weekly injections. Discussed exercise and diet goals. #Hypertension: BP well-controlled. Continue current regimen. Continue following with PCP. #Asthma: Well-controlled. Continue Xopenex. Patient was reassured and welcomed to the practice. We discussed that we stress a hollistic medical approach with emphasis on lifestyle modification. Patient was informed that a healthy lifestyle with exercise and good eating habits can help reduce his risk of medical complications. Patient is explained that obesity increases his risk of diabetes, cardiovascular disease, or organ damage. We spent a lot of time discussing the relationship between food, exercise, sleep, mental health and obesity. Patient was counseled on the importance EATING local, organic food when possible. Patient was educated on clean 15 and dirty dozen. I provided information about reading books called The Food Rules by Pipe Crowder and Eat Fat Get Lean by Dr Alvino Aldrich. Self education is important in the journey for weight management. Patient was offered diagnostic testing/ SECA scale. We want to measure visceral adiposity, advanced body composition, adverse lipids, fatty acid balance, risk for heart disease and atherosclerosis, markers of inflammation and genetic susceptibility. Patient was counseled on weight management and was advised to lose weight using A. Meal Replacement Products Patient was educated on the replacement products called optifast. This is a good way of taking fixed amount of calories. It has been shown in studies to be ineffective weight management tool. This however has to be coupled with lifestyle intervention as well as laboratory data and EKG monitoring. It is impossible to know how a person will tolerate complete meal replacement. The side effects of meal replacement and weight loss could include syncopal attacks, dizziness, gallstones, potential cholecystectomy, possible heart attack and even . The benefits of meal replacement would be potential weight loss but no guarantees can be made. Meal replacement products are not covered by insurance. Once the patient has bought these products we cannot return them B. Lifestyle management which includes several strategies as below 1. Eat a low carbohydrate good fat good protein diet. Eliminate refined carbohydrates from the diet. Limit sugared beverages. Eat local organic when possible. Cook your own meals. Read food labels. Focus on healthy snacks. Portion control and food with low glycemic index 2. Exercise regularly. Try to get at least 6000 steps a day. Use a predominant to track activity level. Consider using apps like 7 minute excercise, Swapferitpal, lose it, stick as needed for self-monitoring and weight management. Consider group exercises. Consider hiring a driver trainer. Regular exercise is stone to sustainable health and prevents as a buffer against weight regain 3. Sleep is most important for healing. Try to sleep at least 6-8 hours a night. A good quality sleep needs a sleep ritual with ideal room temperature of around 68. It might help to take a shower and have no electronics in the room and sleep in a very dark room without artificial light. Start sleep routine and get up early in the morning and go to bed on time. 4. Make a social connection. Surround yourself with positive people with positive energy. Connect with friends and family. 5. Get into the habit of meditating and mindfulness while doing everything. 6. Go outside and connect with nature. C. Prescription medications Patient was educated on the use of prescription medications for medical weight loss. This is a growing list and includes phentermine, Topamax,Qsymia, contrave, belviq and saxenda, wegovy etc. All prescription medications could have side effects including but not limited to kidney stones, seizure disorder cardiac arrhythmias heart attack pancreatitis, GI effects, Etc. Patient was encouraged to read the prescription insert and have coaching with their pharmacist and make an informed decision about taking medication and know that these medications are being prescribed with good intentions and we do not know how a patient would react to her medication. Some medications are FDA approved for weight loss and there is also off label use depending on patient's inability to afford medications in an attempt to lose weight D. Behavioral counseling was done to establish a relationship between food and an mood. Patient was provided information about local counseling and psychiatry and Dr Camp at [facility] [employer]. We would like to cover regular topics and build on low glycemic eating exercise mindful eating, using yoga and meditation along with deep breathing and connecting with friends and family. E. MASS PAT reviewed, Patient's current medications were reviewed and opinion was given on medication that can cause weight gain and can be substituted F. Patient was assessed for risk with obesity including and not limiting to atherosclerosis heart disease stroke kidney disease, restrictive lung disease, irritable bowel syndrome and overall mortality. Risk of developing prediabetes diabetes and metabolic syndrome was discussed G. Therapeutic plan: We have decided to make therapeutic plan which would include choosing wisely on calories restricting portion getting active, tracking weight, getting good quality sleep and working on time management H. Patient will follow up in 4 weeks for weight management Total time spent today was 60 minutes of which greater than 50% was spent on coordinating and counseling Case discussed with collaborating physician Alvin Franco who reviewed the assessment and plan. Chart, medications, labs, vital signs reviewed. Dictation was accomplished with the use of [employer] voice recognition software, prone to medical misidentifications and grammatical errors. This is unintentional and the practitioner does try to identify and correct these, but some could still be present. Please do not hesitate to contact practitioner for clarification. All questions answered to patients satisfaction. Patient verbalized understanding of diagnosis and treatments explained. To call sooner prior to next visit it any questions/concerns arise. 12/11/2024 BMI 37.0-37.9, adult (ICD-10 - Z68.37) Vonda is a 49-year-old female who presents for weight management consult. Medical history, labs, allergies, medications, and social history reviewed with the patient. Provided education on healthy diet and lifestyle which includes high-protein, low carbohydrate, high-fiber, and a variety of fruits and vegetables. Patient encouraged to exercise with emphasis on resistance training minimum 3 times per week to maintain muscle mass and cardio to burn fat. All patient questions answered. Patient will follow-up in 4 weeks for weight management. #Obesity: 12/11/2024: Weight 208.1 pounds, BMI 37.4. She has trialed phentermine for 4 months recently with some success but has plateaued. She follows a overall healthy lifestyle going to the gym regularly and focusing on protein, home-cooked meals, vegetables. She did have a setback due to kidney infection requiring surgery in June. Discussed protein, exercise, hydration goals. Discussed oral and injectable medications. Unable to start phentermine due to timeframe, unable to tolerate Contrave due to intolerance of Wellbutrin. Given comorbidity of MASH, plan to start Wegovy 0.25 mg weekly injections. Educated on side effects including constipation, nausea, reflux, heartburn. Will submit PA today. Follow-up in 4 weeks. #MASH: Plan to start Wegovy 0.25 mg weekly injections. Discussed exercise and diet goals. #Hypertension: BP well-controlled. Continue current regimen. Continue following with PCP. #Asthma: Well-controlled. Continue Xopenex. Patient was reassured and welcomed to the practice. We discussed that we stress a hollistic medical approach with emphasis on lifestyle modification. Patient was informed that a healthy lifestyle with exercise and good eating habits can help reduce his risk of medical complications. Patient is explained that obesity increases his risk of diabetes, cardiovascular disease, or organ damage. We spent a lot of time discussing the relationship between food, exercise, sleep, mental health and obesity. Patient was counseled on the importance EATING local, organic food when possible. Patient was educated on clean 15 and dirty dozen. I provided information about reading books called The Food Rules by Pipe Crowder and Eat Fat Get Lean by Dr Alvino Aldrich. Self education is important in the journey for weight management. Patient was offered diagnostic testing/ SECA scale. We want to measure visceral adiposity, advanced body composition, adverse lipids, fatty acid balance, risk for heart disease and atherosclerosis, markers of inflammation and genetic susceptibility. Patient was counseled on weight management and was advised to lose weight using A. Meal Replacement Products Patient was educated on the replacement products called optifast. This is a good way of taking fixed amount of calories. It has been shown in studies to be ineffective weight management tool. This however has to be coupled with lifestyle intervention as well as laboratory data and EKG monitoring. It is impossible to know how a person will tolerate complete meal replacement. The side effects of meal replacement and weight loss could include syncopal attacks, dizziness, gallstones, potential cholecystectomy, possible heart attack and even . The benefits of meal replacement would be potential weight loss but no guarantees can be made. Meal replacement products are not covered by insurance. Once the patient has bought these products we cannot return them B. Lifestyle management which includes several strategies as below 1. Eat a low carbohydrate good fat good protein diet. Eliminate refined carbohydrates from the diet. Limit sugared beverages. Eat local organic when possible. Cook your own meals. Read food labels. Focus on healthy snacks. Portion control and food with low glycemic index 2. Exercise regularly. Try to get at least 6000 steps a day. Use a predominant to track activity level. Consider using apps like 7 minute excercise, myfit[employer]spired [employer]pal, lose it, stick as needed for self-monitoring and weight management. Consider group exercises. Consider hiring a driver trainer. Regular exercise is stone to sustainable health and prevents as a buffer against weight regain 3. Sleep is most important for healing. Try to sleep at least 6-8 hours a night. A good quality sleep needs a sleep ritual with ideal room temperature of around 68. It might help to take a shower and have no electronics in the room and sleep in a very dark room without artificial light. Start sleep routine and get up early in the morning and go to bed on time. 4. Make a social connection. Surround yourself with positive people with positive energy. Connect with friends and family. 5. Get into the habit of meditating and mindfulness while doing everything. 6. Go outside and connect with nature. C. Prescription medications Patient was educated on the use of prescription medications for medical weight loss. This is a growing list and includes phentermine, Topamax,Qsymia, contrave, belviq and saxenda, wegovy etc. All prescription medications could have side effects including but not limited to kidney stones, seizure disorder cardiac arrhythmias heart attack pancreatitis, GI effects, Etc. Patient was encouraged to read the prescription insert and have coaching with their pharmacist and make an informed decision about taking medication and know that these medications are being prescribed with good intentions and we do not know how a patient would react to her medication. Some medications are FDA approved for weight loss and there is also off label use depending on patient's inability to afford medications in an attempt to lose weight D. Behavioral counseling was done to establish a relationship between food and an mood. Patient was provided information about local counseling and psychiatry and Dr Camp at [employer]. We would like to cover regular topics and build on low glycemic eating exercise mindful eating, using yoga and meditation along with deep breathing and connecting with friends and family. E. MASS PAT reviewed, Patient's current medications were reviewed and opinion was given on medication that can cause weight gain and can be substituted F. Patient was assessed for risk with obesity including and not limiting to atherosclerosis heart disease stroke kidney disease, restrictive lung disease, irritable bowel syndrome and overall mortality. Risk of developing prediabetes diabetes and metabolic syndrome was discussed G. Therapeutic plan: We have decided to make therapeutic plan which would include choosing wisely on calories restricting portion getting active, tracking weight, getting good quality sleep and working on time management H. Patient will follow up in 4 weeks for weight management Total time spent today was 60 minutes of which greater than 50% was spent on coordinating and counseling Case discussed with collaborating physician Alvin Franco who reviewed the assessment and plan. Chart, medications, labs, vital signs reviewed. Dictation was accomplished with the use of [employer] voice recognition software, prone to medical misidentifications and grammatical errors. This is unintentional and the practitioner does try to identify and correct these, but some could still be present. Please do not hesitate to contact practitioner for clarification. All questions answered to patients satisfaction. Patient verbalized understanding of diagnosis and treatments explained. To call sooner prior to next visit it any questions/concerns arise. 12/11/2024 Dietary counseling and surveillance (ICD-10 - Z71.3) Vonda is a 49-year-old female who presents for weight management consult. Medical history, labs, allergies, medications, and social history reviewed with the patient. Provided education on healthy diet and lifestyle which includes high-protein, low carbohydrate, high-fiber, and a variety of fruits and vegetables. Patient encouraged to exercise with emphasis on resistance training minimum 3 times per week to maintain muscle mass and cardio to burn fat. All patient questions answered. Patient will follow-up in 4 weeks for weight management. #Obesity: 12/11/2024: Weight 208.1 pounds, BMI 37.4. She has trialed phentermine for 4 months recently with some success but has plateaued. She follows a overall healthy lifestyle going to the gym regularly and focusing on protein, home-cooked meals, vegetables. She did have a setback due to kidney infection requiring surgery in June. Discussed protein, exercise, hydration goals. Discussed oral and injectable medications. Unable to start phentermine due to timeframe, unable to tolerate Contrave due to intolerance of Wellbutrin. Given comorbidity of MASH, plan to start Wegovy 0.25 mg weekly injections. Educated on side effects including constipation, nausea, reflux, heartburn. Will submit PA today. Follow-up in 4 weeks. #MASH: Plan to start Wegovy 0.25 mg weekly injections. Discussed exercise and diet goals. #Hypertension: BP well-controlled. Continue current regimen. Continue following with PCP. #Asthma: Well-controlled. Continue Xopenex. Patient was reassured and welcomed to the practice. We discussed that we stress a hollistic medical approach with emphasis on lifestyle modification. Patient was informed that a healthy lifestyle with exercise and good eating habits can help reduce his risk of medical complications. Patient is explained that obesity increases his risk of diabetes, cardiovascular disease, or organ damage. We spent a lot of time discussing the relationship between food, exercise, sleep, mental health and obesity. Patient was counseled on the importance EATING local, organic food when possible. Patient was educated on clean 15 and dirty dozen. I provided information about reading books called The Food Rules by Pipe Crowder and Eat Fat Get Lean by Dr Alvino Aldrich. Self education is important in the journey for weight management. Patient was offered diagnostic testing/ SECA scale. We want to measure visceral adiposity, advanced body composition, adverse lipids, fatty acid balance, risk for heart disease and atherosclerosis, markers of inflammation and genetic susceptibility. Patient was counseled on weight management and was advised to lose weight using A. Meal Replacement Products Patient was educated on the replacement products called optifast. This is a good way of taking fixed amount of calories. It has been shown in studies to be ineffective weight management tool. This however has to be coupled with lifestyle intervention as well as laboratory data and EKG monitoring. It is impossible to know how a person will tolerate complete meal replacement. The side effects of meal replacement and weight loss could include syncopal attacks, dizziness, gallstones, potential cholecystectomy, possible heart attack and even . The benefits of meal replacement would be potential weight loss but no guarantees can be made. Meal replacement products are not covered by insurance. Once the patient has bought these products we cannot return them B. Lifestyle management which includes several strategies as below 1. Eat a low carbohydrate good fat good protein diet. Eliminate refined carbohydrates from the diet. Limit sugared beverages. Eat local organic when possible. Cook your own meals. Read food labels. Focus on healthy snacks. Portion control and food with low glycemic index 2. Exercise regularly. Try to get at least 6000 steps a day. Use a predominant to track activity level. Consider using apps like 7 minute excercise, Swapferitpal, lose it, stick as needed for self-monitoring and weight management. Consider group exercises. Consider hiring a driver trainer. Regular exercise is stone to sustainable health and prevents as a buffer against weight regain 3. Sleep is most important for healing. Try to sleep at least 6-8 hours a night. A good quality sleep needs a sleep ritual with ideal room temperature of around 68. It might help to take a shower and have no electronics in the room and sleep in a very dark room without artificial light. Start sleep routine and get up early in the morning and go to bed on time. 4. Make a social connection. Surround yourself with positive people with positive energy. Connect with friends and family. 5. Get into the habit of meditating and mindfulness while doing everything. 6. Go outside and connect with nature. C. Prescription medications Patient was educated on the use of prescription medications for medical weight loss. This is a growing list and includes phentermine, Topamax,Qsymia, contrave, belviq and saxenda, wegovy etc. All prescription medications could have side effects including but not limited to kidney stones, seizure disorder cardiac arrhythmias heart attack pancreatitis, GI effects, Etc. Patient was encouraged to read the prescription insert and have coaching with their pharmacist and make an informed decision about taking medication and know that these medications are being prescribed with good intentions and we do not know how a patient would react to her medication. Some medications are FDA approved for weight loss and there is also off label use depending on patient's inability to afford medications in an attempt to lose weight D. Behavioral counseling was done to establish a relationship between food and an mood. Patient was provided information about local counseling and psychiatry and Dr Camp at [employer]. We would like to cover regular topics and build on low glycemic eating exercise mindful eating, using yoga and meditation along with deep breathing and connecting with friends and family. E. MASS PAT reviewed, Patient's current medications were reviewed and opinion was given on medication that can cause weight gain and can be substituted F. Patient was assessed for risk with obesity including and not limiting to atherosclerosis heart disease stroke kidney disease, restrictive lung disease, irritable bowel syndrome and overall mortality. Risk of developing prediabetes diabetes and metabolic syndrome was discussed G. Therapeutic plan: We have decided to make therapeutic plan which would include choosing wisely on calories restricting portion getting active, tracking weight, getting good quality sleep and working on time management H. Patient will follow up in 4 weeks for weight management Total time spent today was 60 minutes of which greater than 50% was spent on coordinating and counseling Case discussed with collaborating physician Alvin Franco who reviewed the assessment and plan. Chart, medications, labs, vital signs reviewed. Dictation was accomplished with the use of Boc[employer] voice recognition software, prone to medical misidentifications and grammatical errors. This is unintentional and the practitioner does try to identify and correct these, but some could still be present. Please do not hesitate to contact practitioner for clarification. All questions answered to patients satisfaction. Patient verbalized understanding of diagnosis and treatments explained. To call sooner prior to next visit it any questions/concerns arise. 12/11/2024 Essential hypertension (ICD-10 - I10) Vonda is a 49-year-old female who presents for weight management consult. Medical history, labs, allergies, medications, and social history reviewed with the patient. Provided education on healthy diet and lifestyle which includes high-protein, low carbohydrate, high-fiber, and a variety of fruits and vegetables. Patient encouraged to exercise with emphasis on resistance training minimum 3 times per week to maintain muscle mass and cardio to burn fat. All patient questions answered. Patient will follow-up in 4 weeks for weight management. #Obesity: 12/11/2024: Weight 208.1 pounds, BMI 37.4. She has trialed phentermine for 4 months recently with some success but has plateaued. She follows a overall healthy lifestyle going to the gym regularly and focusing on protein, home-cooked meals, vegetables. She did have a setback due to kidney infection requiring surgery in June. Discussed protein, exercise, hydration goals. Discussed oral and injectable medications. Unable to start phentermine due to timeframe, unable to tolerate Contrave due to intolerance of Wellbutrin. Given comorbidity of MASH, plan to start Wegovy 0.25 mg weekly injections. Educated on side effects including constipation, nausea, reflux, heartburn. Will submit PA today. Follow-up in 4 weeks. #MASH: Plan to start Wegovy 0.25 mg weekly injections. Discussed exercise and diet goals. #Hypertension: BP well-controlled. Continue current regimen. Continue following with PCP. #Asthma: Well-controlled. Continue Xopenex. Patient was reassured and welcomed to the practice. We discussed that we stress a hollistic medical approach with emphasis on lifestyle modification. Patient was informed that a healthy lifestyle with exercise and good eating habits can help reduce his risk of medical complications. Patient is explained that obesity increases his risk of diabetes, cardiovascular disease, or organ damage. We spent a lot of time discussing the relationship between food, exercise, sleep, mental health and obesity. Patient was counseled on the importance EATING local, organic food when possible. Patient was educated on clean 15 and dirty dozen. I provided information about reading books called The Food Rules by Pipe Crowder and Eat Fat Get Lean by Dr Alvino Aldrich. Self education is important in the journey for weight management. Patient was offered diagnostic testing/ SECA scale. We want to measure visceral adiposity, advanced body composition, adverse lipids, fatty acid balance, risk for heart disease and atherosclerosis, markers of inflammation and genetic susceptibility. Patient was counseled on weight management and was advised to lose weight using A. Meal Replacement Products Patient was educated on the replacement products called optifast. This is a good way of taking fixed amount of calories. It has been shown in studies to be ineffective weight management tool. This however has to be coupled with lifestyle intervention as well as laboratory data and EKG monitoring. It is impossible to know how a person will tolerate complete meal replacement. The side effects of meal replacement and weight loss could include syncopal attacks, dizziness, gallstones, potential cholecystectomy, possible heart attack and even . The benefits of meal replacement would be potential weight loss but no guarantees can be made. Meal replacement products are not covered by insurance. Once the patient has bought these products we cannot return them B. Lifestyle management which includes several strategies as below 1. Eat a low carbohydrate good fat good protein diet. Eliminate refined carbohydrates from the diet. Limit sugared beverages. Eat local organic when possible. Cook your own meals. Read food labels. Focus on healthy snacks. Portion control and food with low glycemic index 2. Exercise regularly. Try to get at least 6000 steps a day. Use a predominant to track activity level. Consider using apps like 7 minute excercise, Swapferitpal, lose it, stick as needed for self-monitoring and weight management. Consider group exercises. Consider hiring a driver trainer. Regular exercise is stone to sustainable health and prevents as a buffer against weight regain 3. Sleep is most important for healing. Try to sleep at least 6-8 hours a night. A good quality sleep needs a sleep ritual with ideal room temperature of around 68. It might help to take a shower and have no electronics in the room and sleep in a very dark room without artificial light. Start sleep routine and get up early in the morning and go to bed on time. 4. Make a social connection. Surround yourself with positive people with positive energy. Connect with friends and family. 5. Get into the habit of meditating and mindfulness while doing everything. 6. Go outside and connect with nature. C. Prescription medications Patient was educated on the use of prescription medications for medical weight loss. This is a growing list and includes phentermine, Topamax,Qsymia, contrave, belviq and saxenda, wegovy etc. All prescription medications could have side effects including but not limited to kidney stones, seizure disorder cardiac arrhythmias heart attack pancreatitis, GI effects, Etc. Patient was encouraged to read the prescription insert and have coaching with their pharmacist and make an informed decision about taking medication and know that these medications are being prescribed with good intentions and we do not know how a patient would react to her medication. Some medications are FDA approved for weight loss and there is also off label use depending on patient's inability to afford medications in an attempt to lose weight D. Behavioral counseling was done to establish a relationship between food and an mood. Patient was provided information about local counseling and psychiatry and Dr Camp at [facility]. We would like to cover regular topics and build on low glycemic eating exercise mindful eating, using yoga and meditation along with deep breathing and connecting with friends and family. E. MASS PAT reviewed, Patient's current medications were reviewed and opinion was given on medication that can cause weight gain and can be substituted F. Patient was assessed for risk with obesity including and not limiting to atherosclerosis heart disease stroke kidney disease, restrictive lung disease, irritable bowel syndrome and overall mortality. Risk of developing prediabetes diabetes and metabolic syndrome was discussed G. Therapeutic plan: We have decided to make therapeutic plan which would include choosing wisely on calories restricting portion getting active, tracking weight, getting good quality sleep and working on time management H. Patient will follow up in 4 weeks for weight management Total time spent today was 60 minutes of which greater than 50% was spent on coordinating and counseling Case discussed with collaborating physician Alvin Franco who reviewed the assessment and plan. Chart, medications, labs, vital signs reviewed. Dictation was accomplished with the use of [employer] voice recognition software, prone to medical misidentifications and grammatical errors. This is unintentional and the practitioner does try to identify and correct these, but some could still be present. Please do not hesitate to contact practitioner for clarification. All questions answered to patients satisfaction. Patient verbalized understanding of diagnosis and treatments explained. To call sooner prior to next visit it any questions/concerns arise. 12/11/2024 Fatty liver disease, nonalcoholic (ICD-10 - K76.0) Vonda is a 49-year-old female who presents for weight management consult. Medical history, labs, allergies, medications, and social history reviewed with the patient. Provided education on healthy diet and lifestyle which includes high-protein, low carbohydrate, high-fiber, and a variety of fruits and vegetables. Patient encouraged to exercise with emphasis on resistance training minimum 3 times per week to maintain muscle mass and cardio to burn fat. All patient questions answered. Patient will follow-up in 4 weeks for weight management. #Obesity: 12/11/2024: Weight 208.1 pounds, BMI 37.4. She has trialed phentermine for 4 months recently with some success but has plateaued. She follows a overall healthy lifestyle going to the gym regularly and focusing on protein, home-cooked meals, vegetables. She did have a setback due to kidney infection requiring surgery in June. Discussed protein, exercise, hydration goals. Discussed oral and injectable medications. Unable to start phentermine due to timeframe, unable to tolerate Contrave due to intolerance of Wellbutrin. Given comorbidity of MASH, plan to start Wegovy 0.25 mg weekly injections. Educated on side effects including constipation, nausea, reflux, heartburn. Will submit PA today. Follow-up in 4 weeks. #MASH: Plan to start Wegovy 0.25 mg weekly injections. Discussed exercise and diet goals. #Hypertension: BP well-controlled. Continue current regimen. Continue following with PCP. #Asthma: Well-controlled. Continue Xopenex. Patient was reassured and welcomed to the practice. We discussed that we stress a hollistic medical approach with emphasis on lifestyle modification. Patient was informed that a healthy lifestyle with exercise and good eating habits can help reduce his risk of medical complications. Patient is explained that obesity increases his risk of diabetes, cardiovascular disease, or organ damage. We spent a lot of time discussing the relationship between food, exercise, sleep, mental health and obesity. Patient was counseled on the importance EATING local, organic food when possible. Patient was educated on clean 15 and dirty dozen. I provided information about reading books called The Food Rules by Pipe Crowder and Eat Fat Get Lean by Dr Alvino Aldrich. Self education is important in the journey for weight management. Patient was offered diagnostic testing/ SECA scale. We want to measure visceral adiposity, advanced body composition, adverse lipids, fatty acid balance, risk for heart disease and atherosclerosis, markers of inflammation and genetic susceptibility. Patient was counseled on weight management and was advised to lose weight using A. Meal Replacement Products Patient was educated on the replacement products called optifast. This is a good way of taking fixed amount of calories. It has been shown in studies to be ineffective weight management tool. This however has to be coupled with lifestyle intervention as well as laboratory data and EKG monitoring. It is impossible to know how a person will tolerate complete meal replacement. The side effects of meal replacement and weight loss could include syncopal attacks, dizziness, gallstones, potential cholecystectomy, possible heart attack and even . The benefits of meal replacement would be potential weight loss but no guarantees can be made. Meal replacement products are not covered by insurance. Once the patient has bought these products we cannot return them B. Lifestyle management which includes several strategies as below 1. Eat a low carbohydrate good fat good protein diet. Eliminate refined carbohydrates from the diet. Limit sugared beverages. Eat local organic when possible. Cook your own meals. Read food labels. Focus on healthy snacks. Portion control and food with low glycemic index 2. Exercise regularly. Try to get at least 6000 steps a day. Use a predominant to track activity level. Consider using apps like 7 minute excercise, myfitnesspal, lose it, stick as needed for self-monitoring and weight management. Consider group exercises. Consider hiring a driver trainer. Regular exercise is stone to sustainable health and prevents as a buffer against weight regain 3. Sleep is most important for healing. Try to sleep at least 6-8 hours a night. A good quality sleep needs a sleep ritual with ideal room temperature of around 68. It might help to take a shower and have no electronics in the room and sleep in a very dark room without artificial light. Start sleep routine and get up early in the morning and go to bed on time. 4. Make a social connection. Surround yourself with positive people with positive energy. Connect with friends and family. 5. Get into the habit of meditating and mindfulness while doing everything. 6. Go outside and connect with nature. C. Prescription medications Patient was educated on the use of prescription medications for medical weight loss. This is a growing list and includes phentermine, Topamax,Qsymia, contrave, belviq and saxenda, wegovy etc. All prescription medications could have side effects including but not limited to kidney stones, seizure disorder cardiac arrhythmias heart attack pancreatitis, GI effects, Etc. Patient was encouraged to read the prescription insert and have coaching with their pharmacist and make an informed decision about taking medication and know that these medications are being prescribed with good intentions and we do not know how a patient would react to her medication. Some medications are FDA approved for weight loss and there is also off label use depending on patient's inability to afford medications in an attempt to lose weight D. Behavioral counseling was done to establish a relationship between food and an mood. Patient was provided information about local counseling and psychiatry and Dr Camp at [facility] [employer]. We would like to cover regular topics and build on low glycemic eating exercise mindful eating, using yoga and meditation along with deep breathing and connecting with friends and family. E. MASS PAT reviewed, Patient's current medications were reviewed and opinion was given on medication that can cause weight gain and can be substituted F. Patient was assessed for risk with obesity including and not limiting to atherosclerosis heart disease stroke kidney disease, restrictive lung disease, irritable bowel syndrome and overall mortality. Risk of developing prediabetes diabetes and metabolic syndrome was discussed G. Therapeutic plan: We have decided to make therapeutic plan which would include choosing wisely on calories restricting portion getting active, tracking weight, getting good quality sleep and working on time management H. Patient will follow up in 4 weeks for weight management Total time spent today was 60 minutes of which greater than 50% was spent on coordinating and counseling Case discussed with collaborating physician Alvin Franco who reviewed the assessment and plan. Chart, medications, labs, vital signs reviewed. Dictation was accomplished with the use of [employer] voice recognition software, prone to medical misidentifications and grammatical errors. This is unintentional and the practitioner does try to identify and correct these, but some could still be present. Please do not hesitate to contact practitioner for clarification. All questions answered to patients satisfaction. Patient verbalized understanding of diagnosis and treatments explained. To call sooner prior to next visit it any questions/concerns arise. 12/11/2024 Mild intermittent asthma without complication (ICD-10 - J45.20) Vonda is a 49-year-old female who presents for weight management consult. Medical history, labs, allergies, medications, and social history reviewed with the patient. Provided education on healthy diet and lifestyle which includes high-protein, low carbohydrate, high-fiber, and a variety of fruits and vegetables. Patient encouraged to exercise with emphasis on resistance training minimum 3 times per week to maintain muscle mass and cardio to burn fat. All patient questions answered. Patient will follow-up in 4 weeks for weight management. #Obesity: 12/11/2024: Weight 208.1 pounds, BMI 37.4. She has trialed phentermine for 4 months recently with some success but has plateaued. She follows a overall healthy lifestyle going to the gym regularly and focusing on protein, home-cooked meals, vegetables. She did have a setback due to kidney infection requiring surgery in June. Discussed protein, exercise, hydration goals. Discussed oral and injectable medications. Unable to start phentermine due to timeframe, unable to tolerate Contrave due to intolerance of Wellbutrin. Given comorbidity of MASH, plan to start Wegovy 0.25 mg weekly injections. Educated on side effects including constipation, nausea, reflux, heartburn. Will submit PA today. Follow-up in 4 weeks. #MASH: Plan to start Wegovy 0.25 mg weekly injections. Discussed exercise and diet goals. #Hypertension: BP well-controlled. Continue current regimen. Continue following with PCP. #Asthma: Well-controlled. Continue Xopenex. Patient was reassured and welcomed to the practice. We discussed that we stress a hollistic medical approach with emphasis on lifestyle modification. Patient was informed that a healthy lifestyle with exercise and good eating habits can help reduce his risk of medical complications. Patient is explained that obesity increases his risk of diabetes, cardiovascular disease, or organ damage. We spent a lot of time discussing the relationship between food, exercise, sleep, mental health and obesity. Patient was counseled on the importance EATING local, organic food when possible. Patient was educated on clean 15 and dirty dozen. I provided information about reading books called The Food Rules by Pipe Crowder and Eat Fat Get Lean by Dr Alvino Aldrich. Self education is important in the journey for weight management. Patient was offered diagnostic testing/ SECA scale. We want to measure visceral adiposity, advanced body composition, adverse lipids, fatty acid balance, risk for heart disease and atherosclerosis, markers of inflammation and genetic susceptibility. Patient was counseled on weight management and was advised to lose weight using A. Meal Replacement Products Patient was educated on the replacement products called optifast. This is a good way of taking fixed amount of calories. It has been shown in studies to be ineffective weight management tool. This however has to be coupled with lifestyle intervention as well as laboratory data and EKG monitoring. It is impossible to know how a person will tolerate complete meal replacement. The side effects of meal replacement and weight loss could include syncopal attacks, dizziness, gallstones, potential cholecystectomy, possible heart attack and even . The benefits of meal replacement would be potential weight loss but no guarantees can be made. Meal replacement products are not covered by insurance. Once the patient has bought these products we cannot return them B. Lifestyle management which includes several strategies as below 1. Eat a low carbohydrate good fat good protein diet. Eliminate refined carbohydrates from the diet. Limit sugared beverages. Eat local organic when possible. Cook your own meals. Read food labels. Focus on healthy snacks. Portion control and food with low glycemic index 2. Exercise regularly. Try to get at least 6000 steps a day. Use a predominant to track activity level. Consider using apps like 7 minute excercise, myfitnesspal, lose it, stick as needed for self-monitoring and weight management. Consider group exercises. Consider hiring a driver trainer. Regular exercise is stone to sustainable health and prevents as a buffer against weight regain 3. Sleep is most important for healing. Try to sleep at least 6-8 hours a night. A good quality sleep needs a sleep ritual with ideal room temperature of around 68. It might help to take a shower and have no electronics in the room and sleep in a very dark room without artificial light. Start sleep routine and get up early in the morning and go to bed on time. 4. Make a social connection. Surround yourself with positive people with positive energy. Connect with friends and family. 5. Get into the habit of meditating and mindfulness while doing everything. 6. Go outside and connect with nature. C. Prescription medications Patient was educated on the use of prescription medications for medical weight loss. This is a growing list and includes phentermine, Topamax,Qsymia, contrave, belviq and saxenda, wegovy etc. All prescription medications could have side effects including but not limited to kidney stones, seizure disorder cardiac arrhythmias heart attack pancreatitis, GI effects, Etc. Patient was encouraged to read the prescription insert and have coaching with their pharmacist and make an informed decision about taking medication and know that these medications are being prescribed with good intentions and we do not know how a patient would react to her medication. Some medications are FDA approved for weight loss and there is also off label use depending on patient's inability to afford medications in an attempt to lose weight D. Behavioral counseling was done to establish a relationship between food and an mood. Patient was provided information about local counseling and psychiatry and Dr Camp at [facility] [employer]. We would like to cover regular topics and build on low glycemic eating exercise mindful eating, using yoga and meditation along with deep breathing and connecting with friends and family. E. MASS PAT reviewed, Patient's current medications were reviewed and opinion was given on medication that can cause weight gain and can be substituted F. Patient was assessed for risk with obesity including and not limiting to atherosclerosis heart disease stroke kidney disease, restrictive lung disease, irritable bowel syndrome and overall mortality. Risk of developing prediabetes diabetes and metabolic syndrome was discussed G. Therapeutic plan: We have decided to make therapeutic plan which would include choosing wisely on calories restricting portion getting active, tracking weight, getting good quality sleep and working on time management H. Patient will follow up in 4 weeks for weight management Total time spent today was 60 minutes of which greater than 50% was spent on coordinating and counseling Case discussed with collaborating physician Alvin Franco who reviewed the assessment and plan. Chart, medications, labs, vital signs reviewed. Dictation was accomplished with the use of [employer] voice recognition software, prone to medical misidentifications and grammatical errors. This is unintentional and the practitioner does try to identify and correct these, but some could still be present. Please do not hesitate to contact practitioner for clarification. All questions answered to patients satisfaction. Patient verbalized understanding of diagnosis and treatments explained. To call sooner prior to next visit it any questions/concerns arise. 12/11/2024 Encounter for examination of blood pressure without abnormal findings (ICD-10 - Z01.30) Vonda is a 49-year-old female who presents for weight management consult. Medical history, labs, allergies, medications, and social history reviewed with the patient. Provided education on healthy diet and lifestyle which includes high-protein, low carbohydrate, high-fiber, and a variety of fruits and vegetables. Patient encouraged to exercise with emphasis on resistance training minimum 3 times per week to maintain muscle mass and cardio to burn fat. All patient questions answered. Patient will follow-up in 4 weeks for weight management. #Obesity: 12/11/2024: Weight 208.1 pounds, BMI 37.4. She has trialed phentermine for 4 months recently with some success but has plateaued. She follows a overall healthy lifestyle going to the gym regularly and focusing on protein, home-cooked meals, vegetables. She did have a setback due to kidney infection requiring surgery in June. Discussed protein, exercise, hydration goals. Discussed oral and injectable medications. Unable to start phentermine due to timeframe, unable to tolerate Contrave due to intolerance of Wellbutrin. Given comorbidity of MASH, plan to start Wegovy 0.25 mg weekly injections. Educated on side effects including constipation, nausea, reflux, heartburn. Will submit PA today. Follow-up in 4 weeks. #MASH: Plan to start Wegovy 0.25 mg weekly injections. Discussed exercise and diet goals. #Hypertension: BP well-controlled. Continue current regimen. Continue following with PCP. #Asthma: Well-controlled. Continue Xopenex. Patient was reassured and welcomed to the practice. We discussed that we stress a hollistic medical approach with emphasis on lifestyle modification. Patient was informed that a healthy lifestyle with exercise and good eating habits can help reduce his risk of medical complications. Patient is explained that obesity increases his risk of diabetes, cardiovascular disease, or organ damage. We spent a lot of time discussing the relationship between food, exercise, sleep, mental health and obesity. Patient was counseled on the importance EATING local, organic food when possible. Patient was educated on clean 15 and dirty dozen. I provided information about reading books called The Food Rules by Pipe Crowder and Eat Fat Get Lean by Dr Alvino Aldrich. Self education is important in the journey for weight management. Patient was offered diagnostic testing/ SECA scale. We want to measure visceral adiposity, advanced body composition, adverse lipids, fatty acid balance, risk for heart disease and atherosclerosis, markers of inflammation and genetic susceptibility. Patient was counseled on weight management and was advised to lose weight using A. Meal Replacement Products Patient was educated on the replacement products called optifast. This is a good way of taking fixed amount of calories. It has been shown in studies to be ineffective weight management tool. This however has to be coupled with lifestyle intervention as well as laboratory data and EKG monitoring. It is impossible to know how a person will tolerate complete meal replacement. The side effects of meal replacement and weight loss could include syncopal attacks, dizziness, gallstones, potential cholecystectomy, possible heart attack and even . The benefits of meal replacement would be potential weight loss but no guarantees can be made. Meal replacement products are not covered by insurance. Once the patient has bought these products we cannot return them B. Lifestyle management which includes several strategies as below 1. Eat a low carbohydrate good fat good protein diet. Eliminate refined carbohydrates from the diet. Limit sugared beverages. Eat local organic when possible. Cook your own meals. Read food labels. Focus on healthy snacks. Portion control and food with low glycemic index 2. Exercise regularly. Try to get at least 6000 steps a day. Use a predominant to track activity level. Consider using apps like 7 minute excercise, myfitnesspal, lose it, stick as needed for self-monitoring and weight management. Consider group exercises. Consider hiring a driver trainer. Regular exercise is stone to sustainable health and prevents as a buffer against weight regain 3. Sleep is most important for healing. Try to sleep at least 6-8 hours a night. A good quality sleep needs a sleep ritual with ideal room temperature of around 68. It might help to take a shower and have no electronics in the room and sleep in a very dark room without artificial light. Start sleep routine and get up early in the morning and go to bed on time. 4. Make a social connection. Surround yourself with positive people with positive energy. Connect with friends and family. 5. Get into the habit of meditating and mindfulness while doing everything. 6. Go outside and connect with nature. C. Prescription medications Patient was educated on the use of prescription medications for medical weight loss. This is a growing list and includes phentermine, Topamax,Qsymia, contrave, belviq and saxenda, wegovy etc. All prescription medications could have side effects including but not limited to kidney stones, seizure disorder cardiac arrhythmias heart attack pancreatitis, GI effects, Etc. Patient was encouraged to read the prescription insert and have coaching with their pharmacist and make an informed decision about taking medication and know that these medications are being prescribed with good intentions and we do not know how a patient would react to her medication. Some medications are FDA approved for weight loss and there is also off label use depending on patient's inability to afford medications in an attempt to lose weight D. Behavioral counseling was done to establish a relationship between food and an mood. Patient was provided information about local counseling and psychiatry and Dr Camp at [facility]. We would like to cover regular topics and build on low glycemic eating exercise mindful eating, using yoga and meditation along with deep breathing and connecting with friends and family. E. MASS PAT reviewed, Patient's current medications were reviewed and opinion was given on medication that can cause weight gain and can be substituted F. Patient was assessed for risk with obesity including and not limiting to atherosclerosis heart disease stroke kidney disease, restrictive lung disease, irritable bowel syndrome and overall mortality. Risk of developing prediabetes diabetes and metabolic syndrome was discussed G. Therapeutic plan: We have decided to make therapeutic plan which would include choosing wisely on calories restricting portion getting active, tracking weight, getting good quality sleep and working on time management H. Patient will follow up in 4 weeks for weight management Total time spent today was 60 minutes of which greater than 50% was spent on coordinating and counseling Case discussed with collaborating physician Alvin Franco who reviewed the assessment and plan. Chart, medications, labs, vital signs reviewed. Dictation was accomplished with the use of Bocada voice recognition software, prone to medical misidentifications and grammatical errors. This is unintentional and the practitioner does try to identify and correct these, but some could still be present. Please do not hesitate to contact practitioner for clarification. All questions answered to patients satisfaction. Patient verbalized understanding of diagnosis and treatments explained. To call sooner prior to next visit it any questions/concerns arise. Plan Of Treatment Medication Medication Name Sig Start Date Stop Date Notes Wegovy 0.25 MG/0.5ML 0.5 mL Subcutaneous weekly; Duration: 30 days 12/11/2024 Next Appt Details Follow Up: 4 Weeks, Reason: Provider Name:Linda kenyon, 01/08/2025 08:15:00 AM, [address], [address], [place], [id number], Progress Notes * VONDA SULLIVANDOB:[birth year] (49 yo F)Acc No.[id number]:12/11/2024 Patient: VNODA OSBORNE Provider: Francisca Adan PA-C :1975 A ge:49 Y S ex:Female Date:12/11/2024 Address:[address] [place] [address] [address], [phone] Pcp:Jane Dao Subjective: * Chief Complaints: * 1 . Patient is in office for weight management consult. * HPI: C onstitutional: Vonda is a 49-year-old female who presents for weight management consult. She denies personal or family history of thyroid cancer. Denies chance of . She states she was on phentermine for 4 months total and regularly going to the gym. Her last dose of phentermine was a few weeks ago. Doing so she lost over 20 pounds. She did have a setback due to kidney infection requiring surgery back in June. She has been trying to get back into the routine of things. For diet, she consumes 3 meals per day. For breakfast she enjoys protein shakes, eggs, sometimes a bagel and avocado. For lunch and dinner, she focuses on home-cooked meals, salads, leftovers. She is unable to tolerate Contrave due to intolerance of Wellbutrin. Unable to continue on phentermine due to timeframe. 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 She follows with PCP and is up-to-date, A1c in the 5 range. * ROS: R OS: Constitutional: Patient denies any excessive fatigue with exercise, no weight loss, no fever, no night sweats, no changes in sleep. Eyes: No eye discharge, no itching, no redness, no vision changes. Advised the significance of regular eye exams to screen for glaucoma and other eye problems. Ear nose throat: No ear pain, No sore throat, no postnasal drip, no runny nose, no sneezing, no hearing changes Cardiovascular: No chest pain, no dyspnea on exertion, no PND, no orthopnea, no irregular pulse, no palpitations, no claudication, no diaphoresis, no claudication. Respiratory: No chronic cough, no hemoptysis, no sputum, no wheezing, no SOB, no pleuritic pain. GI: No diarrhea, no constipation, no blood in the stools, no pain associated with eating, no indigestion, no difficulty swallowing, no appetite change. Genitourinary: No painful urination, no hesitancy, no blood in the urine, no incontinence, no frequency, no urgency, no abnormal discharge. Musculoskeletal: No back pain, no joint pain, no limitations to walking and running, no joint deformity, no joint stiffness, no muscle weakness Integumentary: No new skin rash. No new changes in skin moles, no pruritis, no color change. Neurological: No history of seizures, no memory loss, no language dysfunction, no inability to concentrate, no localized weakness, no sensation loss, no confusion, no dizziness, no tremor, no numbness, no tingling. Psychiatric: no anxiety, no depression, no suicidal thoughts, feels safe at home. Endocrine: No polyuria, no polyphagia, no polydipsia. No heat/cold intolerance, no excesss thirst. Hematological: No easy bruising or bleeding, no lymph node swelling. * Medical History: H igh blood pressure, Asthma, Kidney stones, Anxiety, Seasonal allergies. * Surgical History: D enies Past Surgical History. * Hospitalization/Major Diagno stic Procedure: k idney stones , Vaginal- fibroids . * Family History: F ather: alive. M other: alive. 1 sister(s) . . Family history of cancer, heart diease, hypertension, mental diease. * Social History: T obacco Use: T obacco Control (Standard) T obacco use: N onsmoker. D rugs/Alcohol: D o you smoke marijuana?: Denies. Do you drink alcohol?: No. P atient does not live alone. * Medications: T aking Xopenex , Taking LORazepam , Taking Dilaudid , Taking Flonase , Taking Losartan Potassium 50 MG Tablet 1 tablet Orally Once a day , Taking Xyzal , Medication List reviewed and reconciled with the patient * Allergies: P ercocet, Codeine, Bactrim, Augmentin, Cephalexin, oxyCODONE, Fluconazole, Diflucan, IV dye. Objective: * Vitals: H R:84/min, BP:124/80mm Hg, Wt:208.1lbs, BMI:37.45Index, Ht: 62.5 in, Oxygen sat %:97%. * Physical Examination: G eneral: Age appropriate, well appearing, no acute distress, speaking in full sentences without respiratory compromise. Well groomed, well developed. Alert, Interactive. Skin: Warm, dry and intact. No lesions/rashes/erythema. HEENT: Normocephalic/atraumatic. Neck/Thyroid: Supple, with no lymphadenopathy. Full ROM. Lung: Clear to auscultation bilaterally, no wheezes, rales or rhonchi. No barrel chest. Equal chest rise and fall bilaterally. Cardiac: RRR, Bilateral lower extremities with no edema or rubor. No evidence of varicose veins. Equal tone bilaterally. Neuro: CN II-XI grossly intact. Steady gait with ambulation observed. Psych: Stable mood and affect. Assessment: * Assessment: 1. M oderate obesity - E66.9 (Primary) 2 . B ND 37.0-37.9, adult - Z68.37? 3. D ietary counseling and surveillance - Z71.3 4 . E ssential hypertension - I10 5 . F atty liver disease, nonalcoholic - K76.0 6. M ild intermittent asthma without complication - J45.20 7 . E ncounter for examination of blood pressure without abnormal findings - Z01.30 Vonda is a 49-year-old fema le who presents for weight management consult. Medical history, labs, allergies, medications, and social history reviewed with the patient. Provided education on healthy diet and lifestyle which includes high-protein, low carbohydrate, high-fiber, and a variety of fruits and vegetables. Patient encouraged to exercise with emphasis on resistance training minimum 3 times per week to maintain muscle mass and cardio to burn fat. All patient questions answered. Patient will follow-up in 4 weeks for weight management. #Obesity: 12/11/2024: Weight 208.1 pounds, BMI 37.4. She has trialed phentermine for 4 months recently with some success but has plateaued. She follows a overall healthy lifestyle going to the gym regularly and focusing on protein, home-cooked meals, vegetables. She did have a setback due to kidney infection requiring surgery in June. Discussed protein, exercise, hydration goals. Discussed oral and injectable medications. Unable to start phentermine due to timeframe, unable to tolerate Contrave due to intolerance of Wellbutrin. Given comorbidity of MASH, plan to start Wegovy 0.25 mg weekly injections. Educated on side effects including constipation, nausea, reflux, heartburn. Will submit PA today. Follow-up in 4 weeks. #MASH: Plan to start Wegovy 0.25 mg weekly injections. Discussed exercise and diet goals. #Hypertension: BP well-controlled. Continue current regimen. Continue following with PCP. #Asthma: Well-controlled. Continue Xopenex. Patient was reassured and welcomed to the practice. We discussed that we stress a hollistic medical approach with emphasis on lifestyle modification. Patient was informed that a healthy lifestyle with exercise and good eating habits can help reduce his risk of medical complications. Patient is explained that obesity increases his risk of diabetes, cardiovascular disease, or organ damage. We spent a lot of time discussing the relationship between food, exercise, sleep, mental health and obesity. Patient was counseled on the importance EATING local, organic food when possible. Patient was educated on clean 15 and dirty dozen. I provided information about reading books called The Food Rules by Pipe Crowder and Eat Fat Get Lean by Dr Alvino Aldrich. Self education is important in the journey for weight management. Patient was offered diagnostic testing/ SECA scale. We want to measure visceral adiposity, advanced body composition, adverse lipids, fatty acid balance, risk for heart disease and atherosclerosis, markers of inflammation and genetic susceptibility. Patient was counseled on weight management and was advised to lose weight using A. Meal Replacement Products Patient was educated on the replacement products called optifast. This is a good way of taking fixed amount of calories. It has been shown in studies to be ineffective weight management tool. This however has to be coupled with lifestyle intervention as well as laboratory data and EKG monitoring. It is impossible to know how a person will tolerate complete meal replacement. The side effects of meal replacement and weight loss could include syncopal attacks, dizziness, gallstones, potential cholecystectomy, possible heart attack and even . The benefits of meal replacement would be potential weight loss but no guarantees can be made. Meal replacement products are not covered by insurance. Once the patient has bought these products we cannot return them B. Lifestyle management which includes several strategies as below 1. Eat a low carbohydrate good fat good protein diet. Eliminate refined carbohydrates from the diet. Limit sugared beverages. Eat local organic when possible. Cook your own meals. Read food labels. Focus on healthy snacks. Portion control and food with low glycemic index 2. Exercise regularly. Try to get at least 6000 steps a day. Use a predominant to track activity level. Consider using apps like 7 minute excercise, Swapferitpal, lose it, stick as needed for self-monitoring and weight management. Consider group exercises. Consider hiring a driver trainer. Regular exercise is stone to sustainable health and prevents as a buffer against weight regain 3. Sleep is most important for healing. Try to sleep at least 6-8 hours a night. A good quality sleep needs a sleep ritual with ideal room temperature of around 68. It might help to take a shower and have no electronics in the room and sleep in a very dark room without artificial light. Start sleep routine and get up early in the morning and go to bed on time. 4. Make a social connection. Surround yourself with positive people with positive energy. Connect with friends and family. 5. Get into the habit of meditating and mindfulness while doing everything. 6. Go outside and connect with nature. C. Prescription medications Patient was educated on the use of prescription medications for medical weight loss. This is a growing list and includes phentermine, Topamax,Qsymia, contrave, belviq and saxenda, wegovy etc. All prescription medications could have side effects including but not limited to kidney stones, seizure disorder cardiac arrhythmias heart attack pancreatitis, GI effects, Etc. Patient was encouraged to read the prescription insert and have coaching with their pharmacist and make an informed decision about taking medication and know that these medications are being prescribed with good intentions and we do not know how a patient would react to her medication. Some medications are FDA approved for weight loss and there is also off label use depending on patient's inability to afford medications in an attempt to lose weight D. Behavioral counseling was done to establish a relationship between food and an mood. Patient was provided information about local counseling and psychiatry and Dr Camp at [facility]. We would like to cover regular topics and build on low glycemic eating exercise mindful eating, using yoga and meditation along with deep breathing and connecting with friends and family. E. MASS PAT reviewed, Patient's current medications were reviewed and opinion was given on medication that can cause weight gain and can be substituted F. Patient was assessed for risk with obesity including and not limiting to atherosclerosis heart disease stroke kidney disease, restrictive lung disease, irritable bowel syndrome and overall mortality. Risk of developing prediabetes diabetes and metabolic syndrome was discussed G. Therapeutic plan: We have decided to make therapeutic plan which would include choosing wisely on calories restricting portion getting active, tracking weight, getting good quality sleep and working on time management H. Patient will follow up in 4 weeks for weight management Total time spent today was 60 minutes of which greater than 50% was spent on coordinating and counseling Case discussed with collaborating physician Alvin Franco who reviewed the assessment and plan. Chart, medications, labs, vital signs reviewed. Dictation was accomplished with the use of Bocada voice recognition software, prone to medical misidentifications and grammatical errors. This is unintentional and the practitioner does try to identify and correct these, but some could still be present. Please do not hesitate to contact practitioner for clarification. All questions answered to patients satisfaction. Patient verbalized understanding of diagnosis and treatments explained. To call sooner prior to next visit it any questions/concerns arise. Plan: * Treatment: * Procedure Codes: G 0447 FCE-FCE BEHAVRL CNSL OBESITY 15 MIN, Modifiers: 59 , 3074F SYST BP LT 130 MM HG, 3079F DIAST BP 80-89 MM HG * Follow Up: 4 Weeks * Images: Billing Information: * Visit Code: 98318 Office Visit, New Pt., Level 5. Modifiers: SA * Procedure Codes: G0447 FCE-FCE BEHAVRL CNSL OBESITY 15 MIN. Modifiers: 59 3074F SYST BP LT 130 MM HG. 3079F DIAST BP 80-89 MM HG. * Sign off status: Completed true * Provider: Francisca Adan PA-C Date: 0 12/11/2024 Generated for Svitlana castrejon/Beatriz/Rafaelitting on: 0 12/13/2024 04:35 PM EDT History and Physical Notes * HPI (History of Present Illness) Category Sub-Category Detail Notes Category Not es Constitutional Vonda is a 49-year-old female who presents for weight management consult. She denies personal or family history of thyroid cancer. Denies chance of . She states she was on phentermine for 4 months total and regularly going to the gym. Her last dose of phentermine was a few weeks ago. Doing so she lost over 20 pounds. She did have a setback due to kidney infection requiring surgery back in June. She has been trying to get back into the routine of things. For diet, she consumes 3 meals per day. For breakfast she enjoys protein shakes, eggs, sometimes a bagel and avocado. For lunch and dinner, she focuses on home-cooked meals, salads, leftovers. She is unable to tolerate Contrave due to intolerance of Wellbutrin. Unable to continue on phentermine due to timeframe. 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 She follows with PCP and is up-to-date, A1c in the 5 range. Physical Examination Category Sub-Category Detail Notes Section Note s General: Age appropriate, well appearing, no acute distress, speaking in full sentences without respiratory compromise. Well groomed, well developed. Alert, Interactive. Skin: Warm, dry and intact. No lesions/rashes/erythema. HEENT: Normocephalic/atraumatic. Neck/Thyroid: Supple, with no lymphadenopathy. Full ROM. Lung: Clear to auscultation bilaterally, no wheezes, rales or rhonchi. No barrel chest. Equal chest rise and fall bilaterally. Cardiac: RRR, Bilateral lower extremities with no edema or rubor. No evidence of varicose veins. Equal tone bilaterally. Neuro: CN II-XI grossly intact. Steady gait with ambulation observed. Psych: Stable mood and affect
--- OUTSIDE RECORDS SUMMARY | 2024-12-13 16:35 | XMS_ITS | Encounter Summary ---
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 documented as of this encounter Visit Diagnoses Not on filedocumented in this encounter Care Teams Diamond Wheel Edger Relationship Specialty Start Date End Date Jane Dao NP [address] [place] [address] [email or web address] PCP - General Nurse Practitioner 07/10/24 documented as of this encounter Additional Source Comments The information contained in this document represents components of the legal health record. It is not the complete legal health record.[facility]
--- OUTSIDE RECORDS SUMMARY | 2024-12-13 16:35 | XMS_ITS | Encounter Summary ---
Author Organization [facility] Address [address] [place] [address] [address] [place] [address] Phone Care Team Providers Care Training And Quality Manager Name Role Phone Ynes Phipps DIPLOMA MEDICAL ASSISTANT Primary Care Provider [phone] Ynes Phipps DIPLOMA MEDICAL ASSISTANT Primary Care Provider [phone] Jane Dao DIPLOMA MEDICAL ASSISTANT Primary Care Provider [phone] Reason for Referral * Consultation (Elective) - Closed Specialty Diagnoses / Procedures Referred By Evangelist maurice Referred To Contact Diagnoses Aneurysm of artery of neck System, Provider Not In, PhD [employer] [facility] [address] Referral ID Status Reason Start Date Expiration Date Visits Re quested Visits Authorized [id number] Closed 07/17/2015 07/16/2016 1 1 Encounter Details Date Type Department Care Team (Latest Contact Info) Description 07/17/2015 Transcribe Orders [facility] Cardiovascular Medicine [address] [place] [address], 5th Floor, [address] [place] [address] System, Provider Not In, PhD [email or web address] [address] [place] [phone] Aneurysm of artery of neck (Primary Dx) [...] Info) Description 02/01/2025 8:00 AM EDT Appointment [facility], Nuclear Medicine - [address] [address] Desmond Acosta MD [address] [place] [address] [email or web address] Scheduled Referrals Name Type Priority Associated Diagnoses Order Schedule Ambulatory referral to [facility] Vascular/Stroke Outpatient Referral Routine Aneurysm of artery [...] documented as of this encounter Care Teams Training And Quality Manager Relationship Specialty Start Date End Date Ynes Phipps NP [address] [place] [address] PCP - General 07/17/15 11/10/17 Ynes Phipps NP [address] [place] [address] PCP - General Geriatric Psychiatry 11/11/17 07/09/24 Jane Dao NP [address] [place] [address] [email or web address] PCP - General Nurse Practitioner 07/10/24 documented as of this encounter Additional Source Comments The information contained in this document represents components of the legal health record. It is not the complete legal health record.[facility]
--- OUTSIDE RECORDS SUMMARY | 2024-12-13 16:35 | XMS_ITS | Encounter Summary ---
Author Organization [facility] Address [address] [place] [address] Phone Care Team Providers Care Pressure Control Supervisor Name Role Phone Ynes Phipps [facility] Primary Care Provider [phone] Jane Dao [facility] Primary Care Provider Encounter Details Date Type Department Care Team (Late st Contact Info) Description 10/17/2019 Transcribe Orders Virtual Department [address] [place] [address] Clara Moy MD [address] [place] [address] [email or web address] Cough (Primary Dx) Social History Tobacco Use [...] 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 Not on file Not on file documented as of this encounter Plan of Treatment Upcoming Encounters Date Type Department Care Team (Late st Contact Info) Description 02/01/2025 8:00 AM EDT Appointment [facility], Nuclear Medicine - [address] [address] Desmond Acosta MD [address] [place] [address] [email or web address] documented as of this [...] documented as of this encounter Care Teams Pressure Control Supervisor Relationship Specialty Start Date End Date Ynes Phipps NP [address] [place] [address] PCP - General Geriatric Psychiatry 11/11/17 07/09/24 Jane Dao NP [address] [address] [email or web address] PCP - General Nurse Practitioner 07/10/24 documented as of this encounter Additional Source Comments The information contained in this document represents components of the legal health record. It is not the complete legal health record.[facility]
--- OUTSIDE RECORDS SUMMARY | 2024-12-13 16:35 | XMS_ITS | Encounter Summary ---
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 # [id number]. She states no prior authorization is required [...] As far as the requesting provider information. [facility] does have Violet Suggs listed, I am not sure why the facility put a different providers name. After discussion with Zahida, no further intervention needs to be done at this time pertaining to the CT Scan. documented in this encounter Plan of Treatment Not on file documented as of this encounter Visit Diagnoses Not on filedocumented in this encounter Care Teams Heel Seat Laster Relationship Specialty Start Date End Date Jane Dao MD [address] [place] [address] PCP - General General Medicine 05/31/23 documented as of this encounter
--- OUTSIDE RECORDS SUMMARY | 2024-12-13 16:35 | XMS_ITS | Encounter Summary ---
Author Organization [facility] Address [address] [place] [address] Care Team Providers Care Student Loan Counselor Name Role Phone Jane Dao MD Primary Care Provider [phone] Encounter Details Date Type Department Care Team (Late st Contact Info) Description 11/30/2023 Scanned Document [facility] Surgical Oncology [place] [address] 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
--- OUTSIDE RECORDS SUMMARY | 2024-12-13 16:35 | XMS_ITS | Patient Health Record ---
Author Organization [facility] Address [address] [place] [address] Care Team Providers Care Project Development Director Name Role Phone Jane Dao Primary Care Provider UnavailLinda Fletcher Unavailable [phone] Allergies Allergen (clinical drug ingredient) Drug/Non Drug [...] leti oxycodone oxyCODONE Unknown Drug Allergy Active Reason For Referral No Information Medications Medication SIG (Take, Route, Frequency, Duration) Notes Start Date End Date Status Wegovy 0.25 MG/0.5ML 0.5 mL Subcutaneous weekly; Duration: 30 days 12/11/2024 Active Xyzal Active Xopenex Active LORazepam Active Dilaudid Active Flonase Active Losartan Potassium 50 MG 1 tablet Orally Once a day Active Social History Tobacco Use: Social History Observation Description Date Details (start date - stop date) Never Smoker NA - NA Tobacco Control (Standard) Question Answer Notes Tobacco use: Nonsmoker Section Notes: Patient does not live alone Problems Problem Type SNOMED Code ICD Code Onset Dates Problem Status W/U Status Risk Notes Problem Essential hypertension (04406110) Essential hypertension (I10) Active confirmed Problem Obese class II (141148775532273 ) BMI 37.0-37.9, adult (Z68.37) Active confirmed Problem Mild intermittent asthma (377085021) Mild intermittent asthma without complication (J45.20) Active confirmed Problem Fatty liver (263547348) Fatty liver disease, nonalcoholic (K76.0) Active confirmed Problem Obesity (854959065) Moderate obesity (E66.9) Active confirmed Vital Signs Heart Rate 84 /min 12/11/2024 Oximetry 97 % 12/11/2024 Blood pressure diastolic 80 mm Hg 12/11/2024 Height 62.5 in 12/11/2024 Blood pressure systolic 124 mm Hg 12/11/2024 Weight 208.1 lbs 12/11/2024 BMI 37.45 kg/m2 12/11/2024 Encounters Encounter Location Date Provider Diagnosis [facility] [address] 12/11/2024 Linda Normoyle Moderate obesity E66 .9 ; BMI 37.0-37.9, adult Z68.37 ; Dietary counseling and surveillance Z71.3 ; Essential hypertension I10 ; Fatty liver disease, nonalcoholic K76.0 ; Mild intermittent asthma without complication J45.20 and Encounter for examination of blood pressure without abnormal findings Z01.30 [facility] [address] 12/11/2024 Linda Normoyle [facility] [address] 12/11/2024 Linda Normoyle Moderate obesity E66 .[address] [facility] [address] [place] [address] 12/12/2024 Linda Normoyle [facility] [address] [place] [address] 12/13/2024 Linda Normoyle Assessments Encounter Date Diagnosis (ICD Code) Assessment Notes Treatment Notes Treatment Clinical Notes Section Notes 12/11/2024 BMI 37.0-37.9, adult (ICD-10 - Z68.37) [...] Consider using apps like 7 minute excercise, [employer], lose it, stick as needed for self-monitoring and weight management. Consider group exercises. Consider hiring a parent trainer. Regular exercise is stone to sustainable [...] counseling and psychiatry and Dr Camp at [email or web address]. We would like to cover regular topics [...] Dictation was accomplished with the use of [email or web address] voice recognition software, prone to medical misidentifications [...] next visit it any questions/concerns arise. 12/11/2024 Moderate obesity (ICD-10 - E66.9) Vonda [...] Consider using apps like 7 minute excercise, myEGENpal, lose it, stick as needed for self-monitoring and weight management. Consider group exercises. Consider hiring a parent trainer. Regular exercise is stone to sustainable [...] counseling and psychiatry and Dr Camp at [email or web address]. We would like to cover regular topics [...] Dictation was accomplished with the use of [email or web address] voice recognition software, prone to medical misidentifications [...] next visit it any questions/concerns arise. 12/11/2024 Moderate obesity (ICD-10 - E66.9) Electronic Prior Authorization was requested for Wegovy 0.25 MG/0.5ML Solution Auto-injector. Provider can order medication once approval received. 12/11/2024 Dietary counseling and surveillance (ICD-10 - [...] Consider using apps like 7 minute excercise, [employer]pal, lose it, stick as needed for self-monitoring and weight management. Consider group exercises. Consider hiring a parent trainer. Regular exercise is stone to sustainable [...] counseling and psychiatry and Dr Camp at [email or web address]. We would like to cover regular topics [...] Dictation was accomplished with the use of [email or web address] voice recognition software, prone to medical misidentifications [...] Consider using apps like 7 minute excercise, [employer], lose it, stick as needed for self-monitoring and weight management. Consider group exercises. Consider hiring a parent trainer. Regular exercise is stone to sustainable [...] counseling and psychiatry and Dr Camp at [email or web address]. We would like to cover regular topics [...] Dictation was accomplished with the use of [email or web address] voice recognition software, prone to medical misidentifications [...] Consider using apps like 7 minute excercise, [employer], lose it, stick as needed for self-monitoring and weight management. Consider group exercises. Consider hiring a parent trainer. Regular exercise is stone to sustainable [...] counseling and psychiatry and Dr Camp at [email or web address]. We would like to cover regular topics [...] Dictation was accomplished with the use of [email or web address] voice recognition software, prone to medical misidentifications [...] Consider using apps like 7 minute excercise, myfitShadow Healthpal, lose it, stick as needed for self-monitoring and weight management. Consider group exercises. Consider hiring a parent trainer. Regular exercise is stone to sustainable [...] counseling and psychiatry and Dr Camp at [email or web address]. We would like to cover regular topics [...] Dictation was accomplished with the use of [email or web address] voice recognition software, prone to medical misidentifications [...] Consider using apps like 7 minute excercise, myTouchtalentnesspal, lose it, stick as needed for self-monitoring and weight management. Consider group exercises. Consider hiring a parent trainer. Regular exercise is stone to sustainable [...] counseling and psychiatry and Dr Camp at [email or web address]. We would like to cover regular topics [...] Dictation was accomplished with the use of [email or web address] voice recognition software, prone to medical misidentifications [...] it any questions/concerns arise. Plan Of Treatment Next Appt Details Provider Name:Linda kenyon, 01/08/2025 08:15:00 AM, [address] [place] [address], [facility] [address], [address], Insurance Providers Payer Name Payer Address Payer Phone Subscriber Number Group Number Insured Name Patient Relationship to Insured Coverage Start Date Coverage End Date [facility] [address] [place] [address] [id number] NATE VONDA Self - patient is the insured 2 Medical (General) History Medical History History ICD Code high blood pressure asthma kidney stones anxiety seasonal allergies Hospitalization History Reason Date(Month/Year) Vaginal- fibroids kidney stones
--- OUTSIDE RECORDS SUMMARY | 2024-12-13 16:35 | XMS_ITS | Encounter Summary ---
Author Organization [facility] Address [address] [place] [address] Phone Care Team Providers Care Letter Of Credit Document Examiner Name Role Phone Ynes Phipps BELT BUILDER HELPER Primary Care Provider [phone] Ynes Phipps BELT BUILDER HELPER Primary Care Provider [phone] Jane Dao BELT BUILDER HELPER Primary Care Provider [phone] Encounter Details Date Type Department Care Team (Late st Contact Info) Description 08/02/2015 Documentation [facility] Imaging [address] [place] [address] Monik Demarco RN [address] [place] [phone] Social History Tobacco Use Types Packs/Day [...] Info) Description 02/01/2025 8:00 AM EDT Appointment [facility], Nuclear Medicine - [address] [address] Desmond Acosta MD [address] [place] [address] [email or web address] documented as of this encounter Visit Diagnoses Not on filedocumented in this encounter Additional Health Concerns Infection Onset Date Last Indicated Resolved Time CoV-Risk 10/13/2019 10/14/2019 10/27/2019 3:34 AM EDT CoV-Exposed Comment:Recent close contact documented in the Travel/Symptom Screening Form 05/16/2021 05/16/2021 05/27/2021 1:[address] documented as of this encounter Care Teams Letter Of Credit Document Examiner Relationship Specialty Start Date End Date Ynes Phipps NP [address] [place] [address] PCP - General 07/17/15 11/10/17 Ynes Phipps NP [address] [place] [address] PCP - General Geriatric Psychiatry 11/11/17 07/09/24 Jane Dao NP [address] [place] [address] [email or web address] PCP - General Nurse Practitioner 4/7/25 documented as of this encounter Additional Source Comments The information contained in this document represents components of the legal health record. It is not the complete legal health record.[facility]
--- OUTSIDE RECORDS SUMMARY | 2024-12-13 16:35 | XMS_ITS | Encounter Summary ---
Author Organization [facility] Address [address] [place] [address] [place] [address] Phone Care Team Providers Care Vending Stand Supervisor Name Role Phone Ynes Phipps VISITING PROFESSOR Primary Care Provider [phone] Jane Dao VISITING PROFESSOR Primary Care Provider [phone] Encounter Details Date Type Department Care Team (Late st Contact Info) Description 11/12/2020 Transcribe Orders [facility] Neurosurgery [address] [facility], 7th Floor, [address] [place] [address] Monik Demarco RN [address] [place] [phone] [email or web address] Social History Tobacco Use Types [...] 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 Not on file documented as of this encounter Plan of Treatment Upcoming Encounters Date Type Department Care Team (Late st Contact Info) Description 02/01/2025 8:00 AM EDT Appointment [facility], Nuclear Medicine - [address] [address] Desmond Acosta MD [address] [place] [address] [email or web address] documented as of this encounter Visit Diagnoses Not on filedocumented in this encounter Additional Health Concerns Infection Onset Date Last Indicated Resolved Time CoV-Exposed Comment:Recent close contact documented in the Travel/Symptom Screening Form 05/16/2021 05/16/2021 05/27/2021 1:[address] documented as of this encounter Care Teams Vending Stand Supervisor Relationship Specialty Start Date End Date Ynes Phipps NP [address] [place] [address] PCP - General Geriatric Psychiatry 11/11/17 07/09/24 Jane Dao NP [address] [address] [email or web address] PCP - General Nurse Practitioner 07/10/24 documented as of this encounter Additional Source Comments The information contained in this document represents components of the legal health record. It is not the complete legal health record.[facility]
--- OUTSIDE RECORDS SUMMARY | 2024-12-13 16:35 | XMS_ITS | Clinical Summary ---
Author Organization [facility] Address [address] [place] [address] Care Team Providers Care Restorer Paper And Prints Name Role Phone Jane Dao MD Primary Care Provider Allergies Active Allergy Reactions Criticality Noted Date [...] a day. Active Multiple Vitamins-Minera ls (b ttjketz-N-Q-zin c) tablet Take 1 tablet by mouth [...] Type Department Care Team Description 11/23/2024 Telephone [facility] Surgical Oncology [place] [address] [facility] [address] [place] [address] Hope Peralta MD 10/03/2024 Telephone [facility] Surgical Oncology [place] [address] [facility] [address] [place] [address] Hope Peralta MD 09/12/2024 Telephone [facility] Cancer Genetics [address] [place] [address] Drew Forman JOHN Results from Last 3 Months Family History Medical History Relation Name Comments Anxiety disorder Daughter Asthma Daughter Asthma Father COPD Father Hypertension Father Skin cancer Father Tobacco Use Father Alzheimer's disease Maternal Aunt 1 Maci Breast cancer Maternal Aunt 3 Norma diagnosed w ith recurrence vs ipsilateral primary breast cancer at age 69, no other details Breast cancer Maternal Cousin Maternal 1st Cousin repo rtedly diagnosed with stage III disease; FREDERIC at age 41 Cancer, other Maternal Grandmother o f metastatic SOYFREEZE OPERATOR-associated cancer, no other details Lung cancer Maternal [...] Aunt 2 Eleni Alive Maternal Aunt 3 Garland Alive Maternal Cousin Maternal 1st Cousin Alive [...] 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 [...] Vaccine (1 of 2) 2023 Influenza Vaccine 11/03/2024 01/23/2015 COVID-19 Vaccine (2024- season) 2024, 11/28/2020 Medical Devices Implanted Type Area Meter/Relay Craftsman Device Identifier Shelf Expiration Date Model / Serial / Lot [id number] Stent Ureteral 6fr 26cm Taper Tip Bldr Alvino Lp Contour Hdr+ - [id number] Implanted:Qty : 1 on 06/14/2024 by Casey García MD at [facility] Explanted: by Casey García MD (Quantity not on file) Stent Left: Ureter Bib + Tuck JOSE [id number] 01/24/2027 [id number] 30 / / [id number] Insurance * Guarantor: Drake, Patti Account Type Relation to Patient Date of Phone Billing Address Personal/Family Self 1975 [address] [place] [address] [facility] Care Teams Restorer Paper And Prints Relationship Specialty Start Date End Date Jane Dao MD [address] [place] [id number] PCP - General General Medicine 05/31/23
--- OUTSIDE RECORDS SUMMARY | 2024-12-13 16:35 | XMS_ITS | Encounter Summary ---
Author Organization [facility] Address [address] [place] [address] Phone Care Team Providers Care Recruiting Scheduler Name Role Phone Ynes Phipps ANNUAL GIVING OFFICER Primary Care Provider [phone] Jane Dao ANNUAL GIVING OFFICER Primary Care Provider [phone] Encounter Details Date Type Department Care Team (Late Contact Info) Description 10/13/2019 Transcribe Orders Virtual Department [address] [place] [address] Clara Moy MD [address] [place] [address] [email or web address] Cough (Primary Dx); SOB (shortness of [...] 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 Not on file documented as of this encounter Plan of Treatment Upcoming Encounters Date Type Department Care Team (Late Contact Info) Description 02/01/2025 8:00 AM EDT Appointment [facility], Nuclear Medicine - [address] [address] Desmond Acosta MD [address] [place] [address] [email or web address] documented as of this encounter Results * COVID-19 PCR Order (10/14/2019 12:52 PM EDT) Specimen Source NASOPHARYNGEAL SWAB (ANNUAL GIVING OFFICER) [facility] COVID-19 Comment CHILLS, FATIGUE [facility] COVID Testing Status Sent to [facility] Other 10/14/2019 12:5 2 PM EDT 10/14/2019 1:26 PM EDT us Clara Moy MD BODY FLUIDS AND STOOLS ORDER HANY Final Result [facility] [address] [place] [address] documented in this encounter Visit Diagnoses Diagnosis [...] documented as of this encounter Care Teams Recruiting Scheduler Relationship Specialty Start Date End Date Ynes Phipps NP [address] [place] [address] PCP - General Geriatric Psychiatry 11/11/17 07/09/24 Jane Dao NP [address] [place] [address] [email or web address] PCP - General Nurse Practitioner 07/10/24 documented as of this encounter Additional Source Comments The information contained in this document represents components of the legal health record. It is not the complete legal health record.[facility]
--- OUTSIDE RECORDS SUMMARY | 2024-12-13 16:35 | XMS_ITS | Patient Health Record ---
Author Organization [facility] Address [address] [place] [id number] Care Team Providers Care Dish Washer Name Role Phone Jane Dao Primary Care [...] Unknown Allergy Act leti almond allergenic extract Alice (Diagnostic) Unknown Drug Allergy Active Shellfish (FN) Shellfish-derived Products anaphylaxis Drug Allergy Active Yeast-related Products Unknown Drug Allergy Active Chickpea Unknown Allergy Active Results Component Value Reference Range Notes Respiratory Panel w/ SARS-Co [id number] Reviewed date:02/03/2024 10:01:31 AM Interpretation: Performing Lab:[facility], [address], [place], Phone - [phone], Director - Néstor Notes/Report: Clinical Information:SRC: Adenovirus [...] Detected Mycoplasma pneumoniae Not Detected Not Detected Phosphorus-227947 Reviewed date:06/25/2024 11:07:14 AM Interpretation: Performing Lab:[facility], [address] [place] [address], Phone - [phone], Director - MDJodry Notes/Report: Phosphorus 3.5 3.0-4.3 mg/dL CBC With Differential/Platel et-489391 Reviewed date:06/25/2024 11:07:15 AM Interpretation: Performing Lab:[facility], [address] [place] [address], Phone - [phone], Director - MDJodry Notes/Report: WBC 7.1 3.4-10.8 x10E3/uL RBC 4.90 [...] Immature Grans (Abs) 0.0 0.0-0.1 x10E3/uL PTH, Intact-102895 Reviewed date:06/25/2024 11:07:15 AM Interpretation: Performing Lab:[facility] [place], [address] [place] [address], Phone - [phone], Director - MDJodry Notes/Report: PTH, Intact 12 15-65 pg/mL Albumin/Creatinine Ratio,Uri ne-960383 Reviewed date:06/25/2024 11:07:15 AM Interpretation: Performing Lab:[facility] [place], [address] [place] [address], Phone - [phone], Director - MDJodry Notes/Report: Creatinine, Urine 119.4 Not Estab. mg/dL Albumin, Urine 4.9 Not Estab. ug/mL Alb/Creat Ratio 4 0-29 mg/g creat Normal: 0 - 29 Moderately increased: 30 - 300 Severely increased: >300 Comp. Metabolic Panel (14)-3 33526 Reviewed date:06/25/2024 11:07:15 AM Interpretation: Performing Lab:[facility] [place], [address] [place] [address], Phone - [phone], Director - MDJodry Notes/Report: Glucose 74 70-99 [...] IU/L ALT (SGPT) 46 0-32 IU/L LP+Non-HDL Cholesterol-17978 5 Reviewed date:06/25/2024 11:07:15 AM Interpretation: Performing Lab:[facility] [place], [address] [place] [address], Phone - [phone], Director - MDGeenay Notes/Report: Cholesterol, Total 214 100-199 mg/dL Triglycerides 98 0-149 mg/dL HDL Cholesterol 48 >39 mg/dL VLDL Cholesterol Tr 18 5-40 mg/dL LDL Chol Calc (NIH) 148 0-99 mg/dL Non-HDL Cholesterol 166 0-129 mg/dL UA/M w/rflx Culture, Routine -[id number] Reviewed date:06/25/2024 11:07:15 AM Interpretation: Performing Lab[facility], [address] [place] [address], Phone - [phone], Director - Salinay Notes/Report: Specific Felt 1.020 1.005-1.030 pH 6.5 5.0-7.5 Urine-Color Yellow [...] None seen None seen/Few TSH reflex to Z2O-[id number] Reviewed date:06/25/2024 11:07:15 AM Interpretation: Performing Lab:[facility] [place], [address] [place] [address], [place], Phone - [phone], Director - Néstor Notes/Report: TSH 1.220 0.450-4.500 uIU/mL CT Abdomen & Pelvis Reviewed date:06/25/2024 11:07:14 [...] as previously suggested on prior MRI. Frankie Prince MD Signed by Frankie Prince MD Read by: FRANKIE PRINCE MD Reviewed and Electronically Signed by: FRANKIE PRINCE MD Testosterone-[id number] Reviewed date:06/25/2024 11:07:15 AM Interpretation: Performing Lab:[facility] [place], [address] [place] [address], Phone - [phone], Director - Néstor Notes/Report: Testosterone 14 4-50 ng/dL Progesterone-920816 Reviewed date:06/25/2024 11:07:15 AM Interpretation: Performing Lab:[facility] [place], [address] [place] [address], Phone - [phone], Director - Néstor Notes/Report: Progesterone 0.3 Follicular phase 0.1 - 0.9 Luteal phase 1.8 - 23.9 Ovulation phase 0.1 - 12.0 First trimester 11.0 - 44.3 Second trimester 25.4 - 83.3 Third trimester 58.7 - 214.0 Postmenopausal 0.0 - 0.1 Estrogens, Total-371535 Reviewed date:06/25/2024 11:07:15 AM Interpretation: Performing Lab:[facility] [place], [address] [place], [place] [address] [place], Phone - [phone], Director - Néstor Notes/Report: Estrogens, Total 178 Prepubertal < 40 Female Cycle: 1-10 Days 16 - 328 11-20 Days 34 - 501 21-30 Days 48 - 350 Post-Menopausal 40 - 244 Urinalysis, Complete-[id number] Reviewed date:06/25/2024 11:07:14 AM Interpretation: Performing Lab:[facility] [place], [address] [place] [address], Phone - [phone], Director - Néstor Notes/Report: Clinical Information:SRC: Clinical Information:SRC: Specific Felt 1.018 1.005-1.030 pH 5.5 5.0-7.5 Urine-Color [place] Yellow Appearance Clear Clear WBC Esterase 2+ [...] Bacteria None seen None seen/Few Urine Culture, Routine-98145 7 Reviewed date:06/25/2024 11:07:14 AM Interpretation: Performing Lab:[facility] [place], [address] [place] [address], [place], Phone - [phone], Director - Néstor Notes/Report: Clinical Information:SRC:UC Clinical Information:SRC:UC Urine Culture, Routine Final report Result 1 Culture shows less than 10,000 colony forming units of bacteria per milliliter of urine. This colony count is not generally considered to be clinically significant. PTH, Intact-553349 Reviewed date:06/25/2024 11:07:14 AM Interpretation: Performing Lab:[facility] [place], [address] [facility], [place], Phone - [phone], Director - Néstor Notes/Report: Clinical Information:SRC:UC PTH, Intact 22 15-65 pg/mL Comp. Metabolic Panel (14)-3 Reviewed date:06/25/2024 11:07:14 AM Interpretation: Performing Lab:[facility] [place], [address] [facility], [place], Phone - [phone], Director - Néstor Notes/Report: Clinical Information:SRC:UC Glucose 77 70-99 mg/dL [...] date:09/28/2024 02:43:22 PM Interpretation: Performing Lab: Notes/Report: Reason For Referral Reason Referral to Dr. Marry perez ([facility]) - Pt requesting a consult for panniculectomy due to excessive skin rashes in abdomen faxed Diagnosis 1 Excessive and redund ant skin and subcutaneous tissue (L98.7) Referral Organization [facility] Referring Provider First Name Jane Referring Provider Last Name Feliberto Referring Provider Speciality Nurse Prac titioner Referred Provider Higinio Lin Referred Provider Specialty Plastic and Reconstructive Surgery General Notes [facility] 11:27:13 AM >faxed, [facility] 03/10/2024 10:56:39 AM >TE to provider, Received fax response from [facility]. They will not be able to see the patient. BMI 37.48. BMI requirement is 33 or less for surgery and consult, [facility] 03/13/2024 01:26:38 PM >patient was notified and provider aware. Will close referral since it was denied by facility Referral Priority Routine Reason Persistent stones, w ith fluctuating PTH levels appt? Diagnosis 1 Hypoparathyroidism, unspecified (E20.9) Referral Organization [facility] Referring Provider First Name Jane Referring Provider Last Name Feliberto Referring Provider Speciality Nurse Johana vazquez [facility] Referred Provider Specialty Urology General Notes [facility] 08:34:35 AM >faxed, [facility] 06/22/2024 10:59:28 AM >Completed [facility] Referral form, [facility] 06/30/2024 09:05:25 AM >Copied from 06/29/24 TE. Devorah called from [facility] stated that patient needs to see Endocrine specialist before being referred to an Endocrine Surgery. Jane Dao 06/29/2024 10:44:29 AM EDT > Can we please update pt on the above and see if she would like to see an Endocrine specialist through [facility] as she has had many providers in that system, [facility] 06/29/2024 11:37:25 AM EDT > patient stated that she was looking to give us a call as [facility] has a kidney stone program called ( Kidney stone program) and gave us the number of head Provider phone [phone] Desmond Acosta. [facility],, Jane Dao 06/29/2024 12:52:40 PM EDT > Can we please refer pt to this provider for recurrent kidney stones, [facility] 06/30/2024 09:46:45 AM >Updated and faxed, booked 07/26/24 Referral Priority Routine Medications Medication SIG (Take, Route, Frequency, Duration) Notes Start Date End Date Status Dilaudid 2 MG 1 tablet as needed O rally every 6 hrs Active Shxcerjog-Qztvmnugcfse-Pspd esterone 0.125mg - 0.25mg - 75mg 1 [...] seasonal, injectable, 6-35 months Unknown 01/23/2015 Administered HZGJS-78-Ksgflg Vaccine Unknown 11/28/2020 Administered XCDBS-87-Trhoyq Vaccine Unknown 12/17/2020 Administered *Tdap IM Intramuscular [...] Risk Notes Problem Non-toxic single thyroid nodule (726312258) Nontoxic single thyroid nodule (E04.1) Active confirmed Problem Hypoparathyroidism (31443125) Hypoparathyroidis m, unspecified (E20.9) Active confirmed Problem 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) Active confirmed Problem Vitamin D deficiency (12976739) Vitamin D deficiency, unspecified (E55.9) Active confirmed Problem Mixed hyperlipidemia (836702058) Mixed hyperlipidemia (E78.2) Active confirmed Problem Generalized anxiety disorder (52071975) Generalized anxiety disorder (F41.1) Active confirmed Problem Acute stress reaction (71750377) Acute stress reaction (F43.0) Active confirmed Problem Episodic tension-type headache (783982573) Episodic tension-type headache, not intractable (G44.219) Active confirmed Problem Disorder of sleep-wake cycle (disorder) (044349795) 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) Active confirmed Problem Chronic kidney disease due to hypertension (088652176544092) Hypertensive chronic kidney disease with stage 1 through stage 4 chronic kidney disease, or unspecified chronic kidney disease (I12.9) Active confirmed Problem Atrial premature depolarization (969171035) Atrial premature depolarization (I49.1) Active confirmed Problem Ventricular premature depolarization (322589385) Ventricular premature depolarization (I49.3) Active confirmed Problem Aneurysm of carotid artery (891536018) Aneurysm of carotid artery (I72.0) Active confirmed Problem Allergic rhinitis caused by pollen (disorder) (05673714) Allergic rhinitis due to pollen (J30.1) Active confirmed Problem Mild intermittent asthma (229253103) Mild intermittent asthma, uncomplicated (J45.20) Active confirmed Problem Benign neoplasm of stomach (06868640) Polyp of stomach and duodenum (K31.7) Active confirmed Problem Cholesterolosis of gallbladder (29535706) Cholesterolosis of gallbladder (K82.4) Active confirmed Problem Atopic dermatitis (16417772) Atopic dermatitis, unspecified (L20.9) Active confirmed Problem Sacrococcygeal disorders, not elsewhere classified (M53.3) Active confirmed Problem Fibromyalgia (042714906) Fibromyalgia (M79.7) Active confirmed Problem Chronic kidney disease stage 2 (664393896) Chronic kidney disease, stage 2 (mild) (N18.2) Active confirmed Problem Calculus of kidney (30054924) Calculus of kidney (N20.0) Active confirmed Problem SI - Stress incontinence (08580754) Stress incontinence (female) (male) (N39.3) Active confirmed Problem Menopause (681067086) Menopausal and female climacteric states (N95.1) Active confirmed Problem Cystic disease of liver (86250503) Cystic disease of liver (Q44.6) Active confirmed Problem Paresthesia (finding) (26261195) Paresthesia of skin (R20.2) Active confirmed Problem Attention deficit hyperactivity disorder, predominantly inattentive type (disorder) (37051234) Attention and concentration deficit (R41.840) Active confirmed Problem Residual cognitive deficit as late effect of cerebrovascular accident (321046983) 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 Problem Body mass index 30.00 to 34.99 (397698045674348) Body mass index [BMI] 31.0-31.9, adult (Z68.31) Active confirmed Problem Body mass index 35.00 to 39.99 (168705742697223) Body mass index [BMI] 36.0-36.9, adult (Z68.36) Active confirmed Problem Body mass index 35.00 to 39.99 (285464459279730) Body mass index [BMI] 37.0-37.9, adult (Z68.37) Active confirmed Problem Transformed migraine (disorder) (614686639) Chronic migraine with aura, not intractable, without [...] Location Date Provider Diagnosis G[facility]me[facility] Liu MD [address] [id number] 12/22/2023 Jane Dao Acute stress reactio n F43.0 ; Hypertensive chronic kidney disease with stage 1 through stage 4 chronic kidney disease, or unspecified chronic kidney disease I12.9 ; Chronic kidney disease, stage 2 (mild) N18.2 ; Body mass index [BMI] 36.0-36.9, adult Z68.36 ; Polyp of stomach and duodenum K31.7 ; Cystic disease of liver Q44.6 and Calculus of kidney N20.0 G[facility] Liu MD [address] [id number] 02/01/2024 Jane Dao Acute upper respirat ory infection, unspecified J06.9 and Acute frontal sinusitis, unspecified J01.10 [facility] Liu MD [address] [id number] 03/09/2024 Jane Dao Hypertensive chronic kidney disease with [...] and Mixed hyperlipidemia E78.2 [facility] Liu MD [address] [id number] 06/21/2024 Jane Dao Dysuria R30.0 ; Calc ulus of kidney N20.0 and Hypoparathyroidism, unspecified E20.9 [facility] Liu MD [address] [id number] 09/25/2024 Jane Dao Encounter for genera l adult medical examination [...] other viral diseases Z11.59 [facility] Liu MD [address] [id number] 02/03/2024 Jane Liu MD [address] [id number] 03/10/2024 Jane Liu MD [address] [id number] 04/10/2024 Jane Liu MD [address] [id number] 05/03/2024 Jane Liu MD [address] [id number] 06/29/2024 Jane Liu MD [address] [id number] 09/25/2024 Jane Liu MD [address] [id number] 09/28/2024 Jane Liu MD [address] [id number] 10/02/2024 Jane Liu MD [address] [id number] 10/18/2024 Jane Dao Body mass index [BMI ] 37.0-37.9, adult Z68.37 [facility] Liu MD [address] [id number] 01/25/2024 Jane Dao Body mass index [BMI ] 36.0-36.9, adult Z68.36 [facility] Liu MD [address] [id number] 02/09/2024 Jane Dao Chronic migraine wit h aura, not intractable, without status migrainosus G43.E09 G[facility]mez Liu MD [address] [id number] 02/10/2024 Jane Liu MD [address] [id number] 02/10/2024 Jane Dao [facility] MD [address] [id number] 02/17/2024 Jane Dao Menopausal and femal e climacteric states N95.1 [facility] Liu MD [address] [id number] 03/24/2024 Jane Feliberto Liu MD [address] [id number] 03/24/2024 Jane Dao [facility] Liu MD [address] [id number] 05/02/2024 Jane Dao [facility] Liu MD [address] [id number] 06/13/2024 Jane Dao Hypertensive chronic kidney disease with stage 1 through stage 4 chronic kidney disease, or unspecified chronic kidney disease I12.9 G[facility]z Liu MD [address] [id number] 06/23/2024 Jane Dao Dysuria R30.0 [facility] Liu MD [address] [id number] 10/02/2024 Jane Dao Chronic migraine wit h aura, not intractable, without status migrainosus G43.E09 [facility] Liu MD [address] [id number] 10/02/2024 Jane Dao Chronic migraine wit h aura, not intractable, without status migrainosus G43.E09 G[facility]z Lui MD [address] [id number] 10/20/2024 Jane Dao Hypertensive chronic kidney disease with stage 1 through stage 4 chronic kidney disease, or unspecified chronic kidney disease I12.9 [facility]z Liu MD [address] [id number] 12/11/2024 Jane Feliberto Liu MD [address] [id number] 12/11/2024 Jane Dao Assessments Encounter Date Diagnosis (ICD Code) Assessment Notes Treatment Notes Treatment Clinical Notes Section Notes 12/22/2023 Acute stress reaction (ICD-10 - F43.0) [...] and encouraged patient to look into the [facility] program online to further assist with coping [...] panel in office today for further evaluation 03/09/2024 Hypertensive chronic kidney disease with stage [...] unspecified chronic kidney disease (ICD-10 - I12.9) 06/21/2024 Calculus of kidney (ICD-10 - N20.0) [...] 3 PM today to discuss her symptoms 06/23/2024 Dysuria (ICD-10 - R30.0) 09/25/2024 Hypertensive chronic kidney disease with stage [...] will be for annual in 1 year 10/02/2024 Chronic migraine with aura, not intractable, without status migrainosus (ICD-10 - G43.E09) 10/02/2024 Chronic migraine with aura, not intractable, without status migrainosus (ICD-10 - G43.E09) 10/18/2024 Body mass index [BMI] 37.0-37.9, adult (ICD-10 - Z68.37) 10/20/2024 Hypertensive chronic kidney disease with stage 1 through stage 4 chronic kidney disease, or unspecified chronic kidney disease (ICD-10 - I12.9) 02/17/2024 Menopausal and female climacteric states (ICD-10 - N95.1) 02/09/2024 Chronic migraine with aura, not intractable, without status migrainosus (ICD-10 - G43.E09) 09/25/2024 Chronic kidney disease, stage 2 (mild) (ICD-10 - N18.2) Previous GFR noted to be in the 80s. Will repeat GFR level to ensure adequate level at this time 03/09/2024 Excessive and redundant skin and subcutaneous [...] ER visit. Patient agreeable with this referral 12/22/2023 Chronic kidney disease, stage 2 (mild) [...] does not help resolve areas of concern 09/25/2024 Mild intermittent asthma, uncomplicated (ICD-10 - J45.20) Stable at present time and asthma appears well-controlled on current medication regimen 09/25/2024 Nontoxic single thyroid nodule (ICD-10 - E04.1) Patient with findings of thyroid nodules on previous u/s and negative FNA biopsy results. Plan will be to repeat ultrasound to ensure nodules have not grown in size 03/09/2024 Mild intermittent asthma, uncomplicated (ICD-10 - J45.20) Stable at present time and asthma appears well-controlled on current medication regimen 12/22/2023 Polyp of stomach and duodenum (ICD-10 [...] follow up to discuss further management options 03/09/2024 Episodic tension-type headache, not intractable (ICD-10 [...] for consultation of panniculectomy per patient's request 12/22/2023 Cystic disease of liver (ICD-10 - [...] for further acute management of her discomfort 03/09/2024 Menopausal and female climacteric states (ICD-10 - N95.1) Stable patient to continue on topical compounded HRT as she has found this has helped improve her menopausal symptoms such as hot flashes 09/25/2024 Menopausal and female climacteric states (ICD-10 - N95.1) Stable patient to continue on topical compounded HRT as she has found this has helped improve her menopausal symptoms such as hot flashes 03/09/2024 Calculus of kidney (ICD-10 - N20.0) Patient with a history of kidney stones and is followed by urology for recent findings of recurrent left kidney stones 09/25/2024 Polyp of stomach and duodenum (ICD-10 - K31.7) Pt is followed by GI (Dr. Ochoa) for previous removal of stomach polyps. Patient to follow-up with this specialist as scheduled to ensure full resolution of polyps post surgical intervention and to determine if any additional imaging or follow up is required 09/25/2024 Cholesterolosis of gallbladder (ICD-10 - K82.4) Gallbladder polyp noted on previous abdominal u/s, and pt is scheduled to see a general surgeon in [place] for further evaluation but states she has paused on scheduling this surgery until a later date 03/09/2024 Polyp of stomach and duodenum (ICD-10 - K31.7) Pt is followed by GI (Dr. Ochoa) for recent removal of stomach polyps. Patient to follow-up with this specialist as scheduled to ensure full resolution of polyps post surgical intervention 03/09/2024 Cholesterolosis of gallbladder (ICD-10 - K82.4) [...] with the specialist that ordered the imaging 09/25/2024 Mixed hyperlipidemia (ICD-10 - E78.2) Previous LDL noted to be 130. Patient's previous Rebollar score was noted to be 1.7%. Will obtain updated lab work and will recalculate patient's progress score once lipid panel is back to determine next steps in managing lipid levels 03/09/2024 Mixed hyperlipidemia (ICD-10 - E78.2) Previous LDL noted to be 130. Patient's Rebollar score was noted to be 1.7%. Patient cardiovascular risk at this time is low we will continue to monitor lipid levels as patient works through lowering her BMI and reaching her weight loss goals 09/25/2024 Hypoparathyroidism, unspecified (ICD-10 - E20.9) Patient [...] 01/27 HOLTER MONITOR, 15 DAYS, INTERPRETATION 07/30/2022 US Thyroid 09/25/2024 Urinalysis, Complete-071132 09/25/2024 CBC With Differential/Platelet-851434 PTH, Intact-325028 09/25/2024 Vitamin D, 60-Htnglsq-314192 09/25/2024 Albumin/Creatinine Ratio,Urine-696808 HCV Antibody RFX to Quant PCR-[id number] Comp. Metabolic Panel (14)-233585 2024 LP+Non-HDL Cholesterol-194150 09/25/2024 UA/M w/rflx Culture, Routine-217179 07/05 TSH reflex to R2H-980861 09/25/2024 Next Appt Details Provider Name:Jane Dao , 01/16/2025 08:30:00 AM, [address] [place] [address], [phone], Provider Name:Jane Dao , 10/01/2025 08:30:00 AM, [address] [place] [address], [place], [place], [phone], Insurance Providers Payer Name Payer Address Payer Phone Subscriber Number Group Number Insured Name Patient Relationship to Insured Coverage Start Date Coverage End Date [facility] [employer] [address] [place] [address] [id number] DrakePatti jara Self - patient is the insured Medical (General) History Medical History History ICD Code asthma - moderate persistent hypertension fibromyalgia PAC's and PVC's kidney stones small 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
--- OUTSIDE RECORDS SUMMARY | 2024-12-13 16:35 | XMS_ITS | Clinical Summary ---
Demographics Address [address] [place] [address] Mobile Phone Home Phone Email Address Preferred Language Albanian Marital Status Single Rastafarian Affiliation Unknown Race White Additional Race(s) Other Race Ethnic Group or Author Organization [facility] Address [address] [place] [phone] Phone Care Team Providers Care Etl Programmer Name Role Phone Jane Dao NP Primary Care Provider [phone] Allergies Active Allergy Reactions Criticality Noted Date Comments [place] 11/01/2023 Other Reaction(s): Unknown Augmentin (Amoxicillin-Pot Clavulanate) [...] usually when provoked; may warrant a laparoscopy Immunizations Immunization Administration Dates Next Due INFLUENZA, [...] 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 Maintenance Due Date Last Done [...] of 2) 2023 COVID-19 VACCINE (3 - 2024-2 6 season) 2024 12/17/2020, 11/28/2020 Adult Td,Tdap Booster 07/25/2033 07/26/2023 [...] Procedure Name Priority Date/Time Associated Diagnosis Comments BASIC METABOLIC PANEL STAT 05/16/2021 2:12 PM EST [facility] MAMMOGRAPHY Routine 11/07/2020 from Last 3 Months or Most Recently Relevant to Health Maintenance Results * (ABNORMAL) Basic metabolic panel (05/16/2021 2:12 PM EST) SODIUM 140 133 - 146 mmol/L [facility] CHLORIDE 104 96 - 108 mmol/L [facility] POTASSIUM 3.9 3.3 - 5.1 mmol/L [facility] Comment:Specimen slightly he molyzed, result may be falsely elevated. CO2 23 21 - 35 mmol/L [facility] BUN 15 6 - 19 mg/dL [facility] CREATININE 0.80 0.5 - 1.5 mg/dL [facility] GLUCOSE 128(H) 70 - 99 mg/dL [facility] CALCIUM 9.6 8.4 - 10.3 mg/dL [facility] EGFR 91 >59 mL/min/1.7 3m2 [facility] Comment:Estimated glomerular filtration rate calculated using the CKD-EPI refit equation. ANION GAP 17 10 - 20 mmol/L [facility] Blood 05/16/2021 2:12 PM EST 05/16/2021 2:[address] PA-C LAB BLOOD ORDERABLES Final Re sult [facility] [address] [place] [address] * MAMMOGRAPHY FOR RESULT ENTRY ONLY (11/07/2020) Ynes Phipps NP HEALTH MAINTENANCE Final Result from Last 3 Months or Most Recently Relevant to Health Maintenance Insurance [employer] * Guarantor: Patti Drake Account Type Relation to Patient Date of Phone Billing Address Personal/Family Self [address] [place] [address] [place] [address] [place] [address] [employer] [facility] [employer] [facility] * Guarantor: Patti Drake Account Type Relation to Patient Date of Phone Billing Address Personal/Family Self 1975 [address] [place] [address] [facility] Care Teams Etl Programmer Relationship Specialty Start Date End Date Jane Dao NP [address] [address] [email or web address] PCP - General Nurse Practitioner 07/10/24 Additional Source Comments The information contained in this document represents components of the legal health record. It is not the complete legal health record.[facility]
--- NOTE | 2025-01-30 15:03 | HO.ANESPROP2 ---
Documented by User: Liliana Meadows NP 01/30/25 15:12 HPI - Anesthesia Eval Consult details Narrative: 50 yr old female for upper endoscopy Versed allergy H/O PVCs, PACs: last saw [facility] cardiology in 2021, per pt off diltiazem for at least 1-1.5 yrs; from 2021 OV- Her symptoms are highly atypical for anything cardiac. Does not suggest ACS or anything cardiac especially with fatigue and vomiting. Multiple prior stress tests unremarkable. Reassured. Otherwise, last Holter without any significant ectopy burden. Thought to have outflow tract PVCs /NSVT. No changes in Diltiazem and she may remain on that. *Talked to pt 01/30/15, she explains that she started on hormone replacement therapy through her PCP and all palpitations have resolved. PMF Active Problems Active Problems: All Active Problems Bilateral flank pain (Acute) Liver cyst (Acute) Fundic gland polyps of stomach, benign (Acute) Diverticulosis (Acute) Sessile serrated polyp of colon (Acute) Complex renal cyst (Acute) Kidney stones (Acute) Rectal bleeding (Acute) Pain in right lower leg (Acute) Bilateral mastodynia (Acute) Right kidney stone (Acute) Flank pain (Acute) NAFLD (nonalcoholic fatty liver disease) (Acute) Morbid obesity with BMI of 40.0-44.9, adult (Acute) Essential hypertension (Acute) PAC (premature atrial contraction) (Acute) NSVT (nonsustained ventricular tachycardia) (Acute) Past Medical History Medical History Liver cyst History of COVID-19 Post-operative nausea and vomiting NAFLD (nonalcoholic fatty liver disease) Morbid obesity with BMI of 40.0-44.9, adult H/O ganglion cyst Essential hypertension NSVT (nonsustained ventricular tachycardia) Vertigo Kidney stones Migraine Fibromyalgia HTN (hypertension) Asthma PAC (premature atrial contraction) PVC (premature ventricular contraction) Family History Family History Father Skin cancer Cardiovascular disease Myocardial infarction Hypertension IBS (irritable bowel syndrome) Mother Hypertension Sister Myocardial infarction Hypertension Heartburn Paternal Uncle Colon cancer Paternal Grandmother Colon cancer Family history of problems with anesthesia: Yes (PONV) Surgical History Surgical History History of suburethral sling procedure History of hysterectomy History of endometrial ablation Hx of cystoscopy Hx of lithotripsy H/O esophagogastroduodenoscopy H/O colonoscopy History of Problems with Anesthesia: Yes (PONV) Social History Social History Household Members: Children Housing: Apartment Do you presently have visiting nurse or other home services: No Alcohol intake: current Alcohol intake frequency: holidays/special occasions only Patient Tobacco Use Status: Never used Tobacco Second Hand Smoke Exposure: No Use of substances other than those prescribed or required for medical reasons: No Are you DNR?: No Advance Directives: No Advance Directives Information Provided: Yes Advance Directives Date on File: 08/21/21 Patient : No service: No Current occupational status: employed Meds Allergies Allergy/AdvReac Type Severity Reaction Status Date / Time cephalexin (CEPHALEXIN) Allergy Severe SWELLING Verified 02/02/25 07:37 clavulanic acid (From Allergy Severe ANAPHYLAXIS Verified 02/02/25 07:37 AUGMENTIN) clindamycin (CLINDAMYCIN) Allergy Severe TONGUE Verified 02/02/25 07:37 SWELLING codeine Allergy Severe PASSED OUT Verified 02/02/25 07:37 influenza virus vaccine, Allergy Severe ANAPHYLAXIS Verified 02/02/25 07:37 specific (FLU VACCINE) perflutren (From Definity) Allergy Severe hives/anaph Verified 02/02/25 07:37 ylaxis seafood Allergy Severe Anaphylaxis Verified 02/02/25 07:37 fluconazole Allergy Intermediate HIVES Verified 02/02/25 07:37 gentamicin (GENTAMICIN) Allergy Intermediate RASH Verified 02/02/25 07:37 Iodinated Contrast Media (IV Allergy Intermediate Hives Verified 02/02/25 07:37 Contrast Dye) oxycodone Allergy Intermediate SOB Verified 02/02/25 07:37 sulfamethoxazole (From Allergy Mild swelling Verified 02/02/25 07:37 Bactrim) trimethoprim (From Bactrim) Allergy Mild swelling Verified 02/02/25 07:37 pineapple Allergy Anaphylaxis Verified 02/02/25 07:37 scopolamine AdvReac Severe Vomiting Verified 02/02/25 07:37 midazolam AdvReac Intermediate Vomiting Verified 02/02/25 07:37 Home Medications ?Medication ?Instructions ?Recorded ?Confirmed ?Last Taken ?Type losartan 50 mg tablet 50 mg PO DAILY 04/24/22 01/31/25 Unknown History albuterol sulfate 90 mcg/actuation 2 puff inhalation Q4H PRN wheezing 08/06/22 01/31/25 Unknown History aerosol inhaler ibuprofen 800 mg tablet 800 mg PO Q8H PRN Pain 08/19/22 02/02/25 01/29/25 History tamsulosin 0.4 mg capsule (Flomax) 0.4 mg PO DAILY 06/28/23 01/31/25 Unknown History hydromorphone 2 mg tablet 2 mg PO BID PRN Severe Pain (Scale 06/16/24 01/31/25 Unknown History Score 7-10) magnesium 200 mg tablet 300 mg PO DAILY 06/16/24 01/31/25 Unknown History vitamin B complex 1 tab PO DAILY 06/16/24 01/31/25 Unknown History levocetirizine 5 mg PO BEDTIME PRN Allergic 02/02/25 02/02/25 Unknown History Symptoms semaglutide (weight loss) 0.5 0.5 mg subcut QWEEK 02/02/25 02/02/25 01/24/25 History mg/0.5 mL subcutaneous pen injector (Wegovy) Exam Narrative Narrative: EKG 06/2024 Vent. Rate : 76 BPM Atrial Rate : 76 BPM P-R Int : 138 ms QRS Dur : 88 ms QT Int : 402 ms P-R-T Axes : 48 4 -2 degrees QTcB Int : 452 ms Normal sinus rhythm with sinus arrhythmia Minimal voltage criteria for LVH, may be normal variant ( R in aVL ) Borderline ECG When compared with ECG of 28-Jul-2022 09:18, No significant change was found Assessment and Plan Final Anesthetic Review Family History of Problems with Anesthesia: Yes (PONV) History of Problems with Anesthesia: Yes (PONV) Documented by User: Concha Dyson MD 02/02/25 08:30 [facility] Past Medical History Medical History Liver cyst History of COVID-19 Post-operative nausea and vomiting NAFLD (nonalcoholic fatty liver disease) Morbid obesity with BMI of 40.0-44.9, adult H/O ganglion cyst Essential hypertension NSVT (nonsustained ventricular tachycardia) Vertigo Kidney stones Migraine Fibromyalgia HTN (hypertension) Asthma PAC (premature atrial contraction) PVC (premature ventricular contraction) Family History Family History Father Skin cancer Cardiovascular disease Myocardial infarction Hypertension IBS (irritable bowel syndrome) Mother Hypertension Sister Myocardial infarction Hypertension Heartburn Paternal Uncle Colon cancer Paternal Grandmother Colon cancer Surgical History Surgical History History of suburethral sling procedure History of hysterectomy History of endometrial ablation Hx of cystoscopy Hx of lithotripsy H/O esophagogastroduodenoscopy H/O colonoscopy Social History Social History Household Members: Children Housing: Apartment Do you presently have visiting nurse or other home services: No Alcohol intake: current Alcohol intake frequency: holidays/special occasions only Patient Tobacco Use Status: Never used Tobacco Second Hand Smoke Exposure: No Use of substances other than those prescribed or required for medical reasons: No Are you DNR?: No Advance Directives: No Advance Directives Information Provided: Yes Advance Directives Date on File: 08/21/21 Patient : No service: No Current occupational status: employed Meds Allergies Allergy/AdvReac Type Severity Reaction Status Date / Time cephalexin (CEPHALEXIN) Allergy Severe SWELLING Verified 02/02/25 07:37 clavulanic acid (From Allergy Severe ANAPHYLAXIS Verified 02/02/25 07:37 AUGMENTIN) clindamycin (CLINDAMYCIN) Allergy Severe TONGUE Verified 02/02/25 07:37 SWELLING codeine Allergy Severe PASSED OUT Verified 02/02/25 07:37 influenza virus vaccine, Allergy Severe ANAPHYLAXIS Verified 02/02/25 07:37 specific (FLU VACCINE) perflutren (From Definity) Allergy Severe hives/anaph Verified 02/02/25 07:37 ylaxis seafood Allergy Severe Anaphylaxis Verified 02/02/25 07:37 fluconazole Allergy Intermediate HIVES Verified 02/02/25 07:37 gentamicin (GENTAMICIN) Allergy Intermediate RASH Verified 02/02/25 07:37 Iodinated Contrast Media (IV Allergy Intermediate Hives Verified 02/02/25 07:37 Contrast Dye) oxycodone Allergy Intermediate SOB Verified 02/02/25 07:37 sulfamethoxazole (From Allergy Mild swelling Verified 02/02/25 07:37 Bactrim) trimethoprim (From Bactrim) Allergy Mild swelling Verified 02/02/25 07:37 pineapple Allergy Anaphylaxis Verified 02/02/25 07:37 scopolamine AdvReac Severe Vomiting Verified 02/02/25 07:37 midazolam AdvReac Intermediate Vomiting Verified 02/02/25 07:37 Home Medications ?Medication ?Instructions ?Recorded ?Confirmed ?Last Taken ?Type losartan 50 mg tablet 50 mg PO DAILY 04/24/22 01/31/25 Unknown History albuterol sulfate 90 mcg/actuation 2 puff inhalation Q4H PRN wheezing 08/06/22 01/31/25 Unknown History aerosol inhaler ibuprofen 800 mg tablet 800 mg PO Q8H PRN Pain 08/19/22 02/02/25 01/29/25 History tamsulosin 0.4 mg capsule (Flomax) 0.4 mg PO DAILY 06/28/23 01/31/25 Unknown History hydromorphone 2 mg tablet 2 mg PO BID PRN Severe Pain (Scale 06/16/24 01/31/25 Unknown History Score 7-10) magnesium 200 mg tablet 300 mg PO DAILY 06/16/24 01/31/25 Unknown History vitamin B complex 1 tab PO DAILY 06/16/24 01/31/25 Unknown History levocetirizine 5 mg PO BEDTIME PRN Allergic 02/02/25 02/02/25 Unknown History Symptoms semaglutide (weight loss) 0.5 0.5 mg subcut QWEEK 02/02/25 02/02/25 01/24/25 History mg/0.5 mL subcutaneous pen injector (Wegovy) Exam Airway Mallampati Class: II TM Dist: >3cm Neck ROM: Full Loose/Missing/Broken Teeth: No Heart: RRR Lungs: CTA Assessment and Plan Assessment Anesthesia Assessment: Anesthesia Plan Discussed and Chart Reviewed Final Anesthetic Review NPO: Yes ASA Class: II Final Preanesthetic Review: Meds/Allgs Chart Reviewed, Consent Obtained/Reviewed and Anes Risks/Benef Reviewed Patient Risk: Low Procedure Risk: Intermediate Anesthetic Plan Anesthetic Plan: MAC: Disposition: Standard PACU
[2025-01-31 13:38] VITALS: BMI 37.7
--- NOTE | 2025-02-02 07:32 | MHC.SHP ---
Pre-Procedural Eval Section A - 24 Hr Update-Section A only Date of Service: 02/02/25 The patient is an INPATIENT: No The patient has been examined within 24 hours of the surgical procedure. The History & Physical has been completed within 30 days and I have reviewed it.: No Section B - Complete if H&P > 30 days Chief Complaint: Follow-up of multiple gastric polyps Relevant Family History (Specify if Yes): Yes Relevant Social History: None Present Medications: see Short Stay Collaborative assessment Medical History: Significant History (Post-operative nausea and vomiting NAFLD (nonalcoholic fatty liver disease) Morbid obesity with BMI of 40.0-44.9, adult H/O ganglion cyst Essential hypertension NSVT (nonsustained ventricular tachycardia) Vertigo Kidney stones Migraine Carotid artery disease Fibromyalgia HTN (hypertension) Asthma PA) History of Previous Operations: Relevant previous surgery/procedure and date(s) (History of endometrial ablation Hx of cystoscopy Hx of lithotripsy H/O esophagogastroduodenoscopy H/O colonoscopy History of partial hysterectomy) Allergies: Allergies Allergy/AdvReac Type Severity Reaction Status Date / Time cephalexin (CEPHALEXIN) Allergy Severe SWELLING Verified 12/08/24 09:15 clavulanic acid (From Allergy Severe ANAPHYLAXIS Verified 12/08/24 09:15 AUGMENTIN) clindamycin (CLINDAMYCIN) Allergy Severe TONGUE Verified 12/08/24 09:15 SWELLING codeine Allergy Severe PASSED OUT Verified 12/08/24 09:15 influenza virus vaccine, Allergy Severe ANAPHYLAXIS Verified 12/08/24 09:15 specific (FLU VACCINE) perflutren (From Definity) Allergy Severe hives/anaph Verified 12/08/24 09:15 ylaxis seafood Allergy Severe Anaphylaxis Verified 12/08/24 09:15 fluconazole Allergy Intermediate HIVES Verified 12/08/24 09:15 gentamicin (GENTAMICIN) Allergy Intermediate RASH Verified 12/08/24 09:15 Iodinated Contrast Media (IV Allergy Intermediate Hives Verified 12/08/24 09:15 Contrast Dye) oxycodone Allergy Intermediate SOB Verified 12/08/24 09:15 sulfamethoxazole (From Allergy Mild swelling Verified 12/08/24 09:15 Bactrim) trimethoprim (From Bactrim) Allergy Mild swelling Verified 12/08/24 09:15 pineapple Allergy Anaphylaxis Verified 12/08/24 09:15 scopolamine AdvReac Severe Vomiting Verified 12/08/24 09:15 midazolam AdvReac Intermediate Vomiting Verified 12/08/24 09:15 Review of Systems Sugical H&P ROS: Negative: Constitution, Cardiovascular, Respiratory and Gastrointestinal Exam Surgical H&P Exam: Normal: Heart, Normal: Lungs, Normal: Extremities and Normal: Abdomen Plan Diagnosis/Plan: Unchanged I have reviewed the history and physical and performed a pertinent physical examination on my patient. No changes have occurred unless specified. Time Spent With Patient Time: Total time managing care of this patient today ____ minutes.
[2025-02-02 07:49] VITALS: BMI 37.9
[2025-02-02 08:01] VITALS: BP 107/75; PULSE 85; RESP 16; TEMP 36.8; O2SAT 97
[2025-02-02] MEDS: Lactated Ringers 1,000 ML 100 ML IVCONT (08:06)
--- NOTE | 2025-02-02 08:59 | W.PM.OPN ---
Operative Note Operative Note Date of Service: 02/02/25 Narrative: FLEXIBLE TRANSORAL UPPER GASTROINTESTINAL ENDOSCOPY WITH SNARE POLYPECTOMY OF GASTRIC POLYPS Pre-op diagnosis: Follow-up of multiple gastric polyps (one polyp showing adenomatous dysplasia on a previous EGD) Post-op diagnosis: Multiple gastric polyps Endoscopist:Adilson Millard MD Anesthesia:?MAC UPPER ENDOSCOPY Consent: Indications for the procedure and potential complications of bleeding, perforation, reaction to medications and missed diagnosis were discussed with the patient and informed consent was obtained. Instrument: Olympus GIF H 190 mid size upper endoscope Monitoring: Vital signs and clinical assessment, continuous EKG monitoring, Pulse oximetry, Carbon Dioxide monitoring and blood pressure monitoring were done throughout the procedure. Procedure: The patient was placed in the left lateral decubitis position and pre-procedure medications were administered and a bite block was placed. The endoscope was inserted into the mouth and advanced under direct vision to the third part of duodenum. A careful inspection was made as the upper endoscope was withdrawn including a retroflexed examination of the proximal stomach; Findings and interventions are described below. Findings: Larynx: Normal Esophagus: GE junction at 36 cms. No esophagitis or Marinelli's. Stomach: Multiple 5 to 12 mm benign appearing polyps in the gastric body. Seven of the larger polyps were removed with a cold snare. Grade 2 flap valve on retroflexed examination of the cardia. Duodenum: Normal bulb and descending duodenum Intervention: Snare polypectomy of gastric polyps as noted above Impression and Post Procedure Diagnosis: Endoscopy Findings: STOMACH: Multiple 5 to 12 mm benign appearing polyps in the gastric body. Seven of the larger polyps were removed with a cold snare. Plan: I will contact the patient with biopsy results. FU EGD in 1 year (same day as her next colonoscopy) Pt has a FU appointment on 06/07/[address] Millard. Above findings were reviewed with the patient and relevant handouts were given and the discharge area.
[2025-02-02 09:00] VITALS: BP 96/60; PULSE 94; RESP 16; TEMP 36.4; O2SAT 96
[2025-02-02 09:15] VITALS: BP 98/66; PULSE 94; RESP 16; O2SAT 96
== END 2025-02-02 09:41 | disposition home or self-care (01) ==
PROVIDERS: PCP Nurse Practitioner Family; Visit Provider Internal Medicine Gastroenterology
PROC: 0DJ08ZZ Inspection of Upper Intestinal Tract, Via Natural or Artificial Opening Endoscopic (ICD-10-PCS; CPT 43235; principal; 2025-02-02 08:30)
DX: D13.1 Benign neoplasm of stomach (principal); Z86.0101 Personal history of adenomatous and serrated colon polyps
CPT/HCPCS: 43239; 43251; 88305; 88313; 88342; J2704

== ENCOUNTER → 2025-02-02 07:19 | Outpatient (BNV) | payer BC, SELFPAY | PROVIDERS: PCP Nurse Practitioner Family; Visit Provider Internal Medicine Gastroenterology | DX: K31.7 Polyp of stomach and duodenum (principal) | CPT/HCPCS: 43251 ==

== ENCOUNTER 2025-02-20 09:03 | Emergency (ER) | payer BC, SELFPAY ==
--- NOTE | ~2025-02-20 | CT_ITS ---
EXAMINATION: CT ABDOMEN AND PELVIS WITHOUT CONTRAST CLINICAL INFORMATION: Epigastric pain. Nausea. Vomiting. Diarrhea. COMPARISON: May 31, 2024. TECHNIQUE: Multidetector volumetric imaging was performed from the superior aspect of the liver through the pubic symphysis. Sagittal and coronal reformatted images were obtained on the technologist's workstation. This CT examination was performed using dose optimization techniques as appropriate, variously including the following: *Automated exposure control *Adjustment of mA and/or kV according to patient size (this includes techniques or standardized protocols for targeted exams where dose is matched to indication/reason for exam; i.e. extremities or head) *Use of iterative reconstruction technique DLP: 768 mGy-cm FINDINGS: Inadequate evaluation of the intra-abdominal solid organs and vascular structures due to lack of IV contrast. Patient's large body habitus/obesity. LUNG BASES: No acute airspace disease or discrete pulmonary nodules. LIVER, GALLBLADDER, AND BILIARY TREE: Liver measures 13 cm. There is a subtle nodular surface. There are multifocal, maneuvers less than 1.5 cm hypodense lesions throughout the hepatic parenchyma. Gallbladder is nondistended. No pericholecystic fluid collection or gallbladder wall thickening. No intrahepatic or extrahepatic biliary ductal dilatation. PANCREAS: No peripancreatic fluid collections. No main pancreatic ductal dilatation. SPLEEN: 10 cm. ADRENAL GLANDS: No nodular lesions. KIDNEYS AND URETERS: No hydronephrosis in either kidney. There is no dilatation of the ureters. 1.5 mm calculus in the upper pole, right kidney. BLADDER: Fluid-filled nearly collapsed. GASTROINTESTINAL TRACT: Appendix is normal. Gas and fluid-filled mildly prominent small bowel loops. No intestinal obstruction pattern. No pneumatosis intestinalis. No pneumoperitoneum. No ascites. ABDOMINAL WALL: Diastases abdominal rectus muscles in the periumbilical region. LYMPH NODES: Nonspecific prominent mesenteric and retroperitoneal. VASCULAR: Calcified plaques without aneurysm, abdominal aorta and iliac arteries. PELVIC VISCERA: Inadequate evaluation. Absent uterus. Left ovary demonstrates no gross masses. OSSEOUS STRUCTURES: Spondylosis, L4-5 and L5-S1 1 cm sclerotic lesion posterior left iliac bone probably benign. Degenerative changes in the sacroiliac joints and symphysis pubis. Focal calcification right gluteal soft tissues. CT/CT abdomen pelvis wo IV con IMPRESSION: Nonobstructing nephrolithiasis, right kidney. Nonspecific prominent mesenteric and retroperitoneal lymph nodes. Concerning hepatocellular disease with numerous hypodense lesions. Spondylosis, L4-5 and L5-S1. Fleischner guidelines were followed. Electronically signed by: Jarod Fernandez MD 02/20/2025 10:51 AM PATRICIO YOUSIF
[2025-02-20 09:12] VITALS: BP 135/81; PULSE 100; RESP 18; TEMP 35.9; O2SAT 98; BMI 37.9
--- NOTE | 2025-02-20 09:43 | ED.ABDPAIN ---
HPI - Abdominal Pain General Chief Complaint: Abdominal Pain Stated Complaint: Stomach Pain Time Seen by Provider: 02/20/25 09:42 History of Present Illness ED Provider: Aminah Patrick HPI narrative: 50-year-old female medical history renal stones, NAFLD, renal cyst, diverticulosis, benign fundic gland polyps, liver cyst, HTN, PACs, NSVT, however most significant for recent upper endoscopy done by Gastroenterology Dr. Millard on 02/02/2025, presents to the ED for evaluation reporting severe nausea with a few episodes of nonbloody vomiting, as well as nonbloody diarrhea ongoing for the past 3-4 days. Denies any black or tarry stools noted, though reports she does not frequently look at her stools. Pain is localized to the epigastric region, nonradiating. No burning sensation in the chest. Patient reports she initially was feeling well after the procedure, and gradually developed some severe nausea. She is able to pass gas. Denies any urinary complaints including dysuria, hematuria, urgency frequency. No fever, though does endorse chills. No chest pain or pressure, palpitations, shortness of breath. No flank pain. Related Data Home Medications ?Medication ?Instructions ?Recorded ?Confirmed losartan 50 mg tablet 50 mg PO DAILY 04/24/22 01/31/25 albuterol sulfate 90 mcg/actuation 2 puff inhalation Q4H PRN wheezing 08/06/22 01/31/25 aerosol inhaler ibuprofen 800 mg tablet 800 mg PO Q8H PRN Pain 08/19/22 02/02/25 tamsulosin 0.4 mg capsule (Flomax) 0.4 mg PO DAILY 06/28/23 01/31/25 hydromorphone 2 mg tablet 2 mg PO BID PRN Severe Pain (Scale 06/16/24 01/31/25 Score 7-10) magnesium 200 mg tablet 300 mg PO DAILY 06/16/24 01/31/25 vitamin B complex 1 tab PO DAILY 06/16/24 01/31/25 levocetirizine 5 mg PO BEDTIME PRN Allergic 02/02/25 02/02/25 Symptoms semaglutide (weight loss) 0.5 0.5 mg subcut QWEEK 02/02/25 02/02/25 mg/0.5 mL subcutaneous pen injector (Wegovy) Previous Rx's ?Medication ?Instructions ?Recorded ondansetron 4 mg disintegrating 4 mg PO Q8H PRN nausea and 06/18/24 tablet vomiting #15 tabs metoclopramide HCl 10 mg tablet 10 mg PO Q8H PRN nausea and 02/20/25 (Reglan) vomiting 5 days #20 tabs Allergies Allergy/AdvReac Type Severity Reaction Status Date / Time cephalexin (CEPHALEXIN) Allergy Severe SWELLING Verified 02/20/25 09:13 clavulanic acid (From Allergy Severe ANAPHYLAXIS Verified 02/20/25 09:13 AUGMENTIN) clindamycin (CLINDAMYCIN) Allergy Severe TONGUE Verified 02/20/25 09:13 SWELLING codeine Allergy Severe PASSED OUT Verified 02/20/25 09:13 influenza virus vaccine, Allergy Severe ANAPHYLAXIS Verified 02/20/25 09:13 specific (FLU VACCINE) perflutren (From Definity) Allergy Severe hives/anaph Verified 02/20/25 09:13 ylaxis seafood Allergy Severe Anaphylaxis Verified 02/20/25 09:13 fluconazole Allergy Intermediate HIVES Verified 02/20/25 09:13 gentamicin (GENTAMICIN) Allergy Intermediate RASH Verified 02/20/25 09:13 Iodinated Contrast Media (IV Allergy Intermediate Hives Verified 02/20/25 09:13 Contrast Dye) oxycodone Allergy Intermediate SOB Verified 02/20/25 09:13 sulfamethoxazole (From Allergy Mild swelling Verified 02/20/25 09:13 Bactrim) trimethoprim (From Bactrim) Allergy Mild swelling Verified 02/20/25 09:13 pineapple Allergy Anaphylaxis Verified 02/20/25 09:13 scopolamine AdvReac Severe Vomiting Verified 02/20/25 09:13 midazolam AdvReac Intermediate Vomiting Verified 02/20/25 09:13 Review of Systems Review of Systems ROS is otherwise negative unless mentioned in HPI. [facility] Past Medical History Medical History Liver cyst History of COVID-19 Post-operative nausea and vomiting NAFLD (nonalcoholic fatty liver disease) Morbid obesity with BMI of 40.0-44.9, adult H/O ganglion cyst Essential hypertension NSVT (nonsustained ventricular tachycardia) Vertigo Kidney stones Migraine Fibromyalgia HTN (hypertension) Asthma PAC (premature atrial contraction) PVC (premature ventricular contraction) Surgical History History of suburethral sling procedure History of hysterectomy History of endometrial ablation Hx of cystoscopy Hx of lithotripsy H/O esophagogastroduodenoscopy H/O colonoscopy Family History Family History Father Skin cancer Cardiovascular disease Myocardial infarction Hypertension IBS (irritable bowel syndrome) Mother Hypertension Sister Myocardial infarction Hypertension Heartburn Paternal Uncle Colon cancer Paternal Grandmother Colon cancer Social History Social History Household Members: Children Housing: Apartment Do you presently have visiting nurse or other home services: No Alcohol intake: current Alcohol intake frequency: holidays/special occasions only Patient Tobacco Use Status: Never used Tobacco Second Hand Smoke Exposure: No Advance Directives: Yes Advance Directives on File: Yes Advance Directives Date on File: 08/21/21 Do you have a plan to hurt others: No Plan Patient : No service: No Current occupational status: employed Physical Exam ED Exam Exam: Nursing notes and vital signs reviewed. Constitutional: Well-appearing, NAD. Alert. Oriented X3. Eyes: EOMI. ENT: Pharynx normal. Neck: Normal inspection. Neck supple. CVS: Normal heart rate and rhythm. Pulses normal. Respiratory: No respiratory distress. Breath sounds normal. Abdomen: Soft, nondistended. Tenderness to the epigastrium. +BSx4. No CVA tenderness. Skin: Skin warm and dry. Normal skin color. Extremities: No signs of trauma or tenderness to the extremities or back. No lower extremity edema. Neuro: Oriented X 3. No motor deficit. Vital Signs: Vital Signs - 24 hr 02/20/25 09:12 02/20/25 10:08 02/20/25 11:23 Temperature 96.6 F L Pulse Rate 100 94 Respiratory Rate 18 17 16 Blood Pressure 135/81 136/88 Pulse Oximetry 98 100 Oxygen Delivery Method Room Air Room Air BMI result Body Mass Index 37.9 Medical Decision Making Medical Decision Making MDM Narrative: Overall she appears well, she does have tenderness to palpation of the epigastric region and endorses several episodes of nausea, only a few episodes of vomiting. Several episodes of what she believes is nonbloody diarrhea. Given the most recent endoscopy on 02/02/2025, most concerning for bleeding, perforation. We will obtain lab work, CT of the abdomen and pelvis, administer pain control and antiemetic, and reassess. 1100-- CT was performed without contrast dye given anaphylactic reaction to dye in the past, shows evidence of nonobstructing kidney stones in the right side, and nonspecific prominent mesenteric and retroperitoneal lymph nodes. There is also concern for hepatocellular disease with numerous hypodense lesions. The lymph nodes are likely reactive to a viral infection that is causing her diarrhea. Here her lab work has been reassuring with no elevated white blood cell count. Currently pending viral panel, urinalysis. We will p.o. trial. She has had no episodes of diarrhea since being in the ED. 1135-- reporting persistent nausea after trying to eat crackers in the ED. Given her liver dysfunction history, we will administer a dose of Reglan and reassess nausea. No vomiting, diarrhea while in the ED. Pending urinalysis. Viral panel is negative. 1155-- significant improvement after Reglan dosing. We will discharge home with this medication. Urinalysis with no signs of infection. Recommended that she follow up with PCP within the next several days, provided strict return precautions to the ED. Patient agreeable and express understanding. Differential Diagnosis Differential Diagnoses: The differential diagnosis associated with the presentation includes Perforation of the colon, viral pathology, gastroenteritis, diverticulitis, colitis (inflammatory or infectious), cystitis, OH, GERD, C diff Admission/Observation Consideration of admission/observation: Escalation of care including admission/observation considered Lab Data MDM Lab Attestation statement: I reviewed the patient's lab results. (overall reassuring) 02/20/25 10:04 02/20/25 10:04 Labs: Lab Results 02/20/25 02/20/25 Range/Units 10:04 10:12 WBC 7.6 (4.8-10.8) X10*3/uL RBC 5.21 D (4.20-5.50) X10*6/uL Hgb 14.7 D (12.0-16.0) g/dl Hct 44.6 D (37.0-47.0) % MCV 85.6 (80.0-98.0) fL MCH 28.2 (27.0-33.0) pg MCHC 33.0 (31.0-35.0) g/dl RDW 12.9 (11.0-16.0) % Plt Count 220 (160-400) X10*3/uL MPV 10.6 (9.4-12.3) fL Immature Gran % (Auto) 0.3 (0.0-0.4) % Neut % (Auto) 58.1 (45-73) % Lymph % (Auto) 23.2 (20-40) % [place] % (Auto) 6.0 (2-11) % Eos % (Auto) 11.9 H (0-4) % Baso % (Auto) 0.5 (0-2) % Lymph # (Auto) 1.8 (1.2-4.9) X10*3/uL [place] # (Auto) 0.5 (0.1-1.2) X10*3/uL Eos # (Auto) 0.9 H (0.0-0.4) X10*3/uL Baso # (Auto) 0.0 (0.0-0.2) X10*3/uL Abs Immat Gran (auto) 0.02 (0.00-0.03) X10*3/uL Absolute Neuts (auto) 4.4 (2.0-8.3) x10*3/uL Absolute Nucleated RBC 0.000 (0.0-0.012) X10*3/uL Nucleated RBC % (auto) 0.0 (0.0-0.2) /100WBC Sodium 139 (135-145) mmol/L Potassium 4.2 (3.3-5.1) mmol/L Chloride 113 H (96-108) mmol/L Carbon Dioxide 22 (22-29) mmol/L Anion Gap 8 L (12-20) BUN 14 (9-16) mg/dL Creatinine 1.07 (0.5-1.4) mg/dL Estim Creat Clear Calc 65.6 Estimated GFR 54 Random Glucose 82 (60-115) mg/dL Calcium 9.5 D (8.4-10.2) mg/dL Total Bilirubin 0.9 (0.0-1.0) mg/dL Direct Bilirubin 0.2 (0.0-0.5) mg/dL AST 23 (5-31) U/L ALT 27 (0-31) U/L Alkaline Phosphatase 143 H (39-117) U/L Total Protein 8.0 (6.5-8.0) g/dL Albumin 4.5 (3.5-5.0) g/dL Lipase 34 (8-78) U/L Influenza Type A (PCR) NEGATIVE (Negative) Influenza Type B (PCR) NEGATIVE (Negative) RSV RNA Qual (PCR) NEGATIVE (Negative) SARS-CoV-2 RNA (RT-PCR) NEGATIVE (Negative) Independent Interpretation I performed an independent interpretation of an: EKG and CT Scan Interpretation: Rate: 84 BPM Rhythm: NSR [place]: Normal P waves. Normal MATTHIAS. Normal QRS complex. ST T wave : no depression, elevation. qTC:446 No acute ischemia. The study has been interpreted contemporaneously by me. I have reviewed the patient's imaging and agree with the radiologist's findings. Radiology Impression Discussion of test interpretation with radiology: I have reviewed the radiologist's reading. Radiologist Impression: CT/CT abdomen pelvis wo IV con IMPRESSION: Nonobstructing nephrolithiasis, right kidney. Nonspecific prominent mesenteric and retroperitoneal lymph nodes. Concerning hepatocellular disease with numerous hypodense lesions. Spondylosis, L4-5 and L5-S1. External Record Review External record reviewed: Outpatient record (Patient's endoscopy from 02/02/2025 shows multiple 5-12 mm benign-appearing polyps in the gastric body, 7 of larger polyps removed.) and Prior outpatient radiology Chronic Conditions Patient?s care impacted by: Other (Gastric polyps) Medications Administered Discontinued Medications Generic Name Dose Route Start Last Admin Trade Name Freq PRN Reason Stop Dose Admin Sodium Chloride 1,000 mls @ 999 mls/hr 02/20/25 09:52 02/20/25 11:24 Ns IV 02/20/25 10:52 Infused .Q1H1M ONE Infusion Morphine Sulfate 4 mg 02/20/25 09:52 02/20/25 10:08 Morphine Sulfate 4 Mg/Ml Cartridge IVPUSH 02/20/25 09:53 4 mg ONCE ONE Administration Protocol Ondansetron HCl 4 mg 02/20/25 09:52 02/20/25 10:08 Ondansetron Hcl 4 Mg/2 Ml Vial IVPUSH 02/20/25 09:53 4 mg ONCE ONE Administration Discharge Plan Discharge Clinical Impression: Nausea vomiting and diarrhea, Mesenteric lymphadenopathy Patient Disposition: Home, Self-Care Instructions: Acute Nausea and Vomiting (DC), Acute Diarrhea (ED) Additional Instructions: As we discussed, you had an extensive workup while in the ED which included lab work, a urine test, EKG, and CT imaging. Your workup overall was very reassuring. The viral panel is negative for COVID, flu, RSV. The urinalysis sample showed no signs of infection. Your CT scan showed nonobstructing kidney stones in the right kidney, and lymph nodes in the mesentery and retroperitoneal areas of the abdomen. This is likely due to a viral illness, as you have had frequent episodes of diarrhea and nausea, with some vomiting. There does not appear to be any associated infection at this time. You also have liver lesions, which is known. Please follow up outpatient with your primary care provider to continue to discuss this finding. Your CT scan is listed below for your convenience. This is to be used and to be discussed with your primary care provider, and specialist as needed. For your nausea you received Zofran, which only helped a small amount. We then gave you Reglan, with good effect. I have sent a prescription of this medication to your pharmacy. Please use this as needed for nausea and vomiting. Please engage in a bland diet. With any worsening complaints at any time, return to the ED for reassessment. Follow up with the PCP within [address]/CT abdomen pelvis wo IV con IMPRESSION: Nonobstructing nephrolithiasis, right kidney. Nonspecific prominent mesenteric and retroperitoneal lymph nodes. Concerning hepatocellular disease with numerous hypodense lesions. Spondylosis, L4-5 and L5-S1. Prescriptions: New metoclopramide HCl [Reglan] 10 mg tablet 10 mg PO Q8H PRN (Reason: nausea and vomiting) 5 Days Qty: 20 0RF No Action albuterol sulfate 90 mcg/actuation HFA aerosol inhaler 2 puff inhalation Q4H PRN (Reason: wheezing) hydromorphone 2 mg tablet 2 mg PO BID PRN (Reason: Severe Pain (Scale Score 7-10)) vitamin B complex Tablet 1 tab PO DAILY magnesium 200 mg Tablet 300 mg PO DAILY ondansetron 4 mg tablet,disintegrating 4 mg PO Q8H PRN (Reason: nausea and vomiting) Qty: 15 0RF Wegovy 0.5 mg/0.5 mL pen injector 0.5 mg subcut QWEEK levocetirizine 5 mg PO BEDTIME PRN (Reason: Allergic Symptoms) losartan 50 mg tablet 50 mg PO DAILY ibuprofen 800 mg tablet 800 mg PO Q8H PRN (Reason: Pain) tamsulosin [Flomax] 0.4 mg capsule 0.4 mg PO DAILY Referrals: Jane Dao NP [Primary Care Provider, Medical] Stand Alone Forms: Work/School Release Print Language: Surinamese
--- NOTE | 2025-02-20 10:03 | ECG_ITS ---
Test Reason : EPIGASTRIC PAIN Blood Pressure : */* mmHG Vent. Rate : 84 BPM Atrial Rate : 84 BPM P-R Int : 144 ms QRS Dur : 76 ms QT Int : 378 ms P-R-T Axes : 35 3 -8 degrees QTcB Int : 446 ms Normal sinus rhythm Normal ECG When compared with ECG of 16-Jun-2024 18:19, No significant change was found Referred By: Aminah Patrick Electronically Signed By: JL STODDARD
[2025-02-20 10:08] VITALS: RESP 17
[2025-02-20 10:12] LABS: MANUAL DIFF FLAG NO
[2025-02-20 10:30] LABS: Hematocrit 44.6 % (37.0-47.0); Hemoglobin 14.7 g/dl (12.0-16.0); Imm Gran Abs Auto 0.02 X10*3/uL (0.00-0.03); Imm Gran Pct Auto 0.3 % (0.0-0.4); Lymphocytes Absolute Auto 1.8 X10*3/uL (1.2-4.9); Mean Corpuscular HGB Conc 33.0 g/dl (31.0-35.0); Mean Corpuscular Hemoglobin 28.2 pg (27.0-33.0); Mean Corpuscular Volume 85.6 fL (80.0-98.0); NRBC Abs Auto 0.000 X10*3/uL (0.0-0.012); NRBC Pct Auto 0.0 /100WBC (0.0-0.2); Platelet Count 220 X10*3/uL (160-400); Red Blood Count 5.21 X10*6/uL (4.20-5.50); White Blood Count 7.6 X10*3/uL (4.8-10.8)
[2025-02-20 10:31] LABS: Alanine Aminotransferase 27 U/L (0-31); Albumin Level 4.5 g/dL (3.5-5.0); Alkaline Phosphatase 143 U/L (39-117); Anion Gap 8 (12-20); Aspartate Amino Transferase 23 U/L (5-31); Blood Urea Nitrogen 14 mg/dL (9-16); Calcium 9.5 mg/dL (8.4-10.2); Carbon Dioxide 22 mmol/L (22-29); Chloride 113 mmol/L (96-108); Creatinine Clr Calc Pharmacy 65.6; Estimated Glomerular Filt Rate 54; Lipase 34 U/L (8-78); Potassium 4.2 mmol/L (3.3-5.1); Sodium 139 mmol/L (135-145); Total Protein 8.0 g/dL (6.5-8.0)
[2025-02-20 11:19] LABS: Resp Syncy Virus RNA Qual PCR NEGATIVE (Negative); SARS COV2 PCR INHOUSE NEGATIVE (Negative)
[2025-02-20 11:23] VITALS: BP 136/88; PULSE 94; RESP 16; O2SAT 100
[2025-02-20 11:44] LABS: Appearance Urine Clear; Glucose Urine UA Negative (Negative); PH 5.5 (5.0-9.0); Specific Gravity - Urine 1.015 (1.005-1.025)
[2025-02-20 12:18] VITALS: BP 136/88; PULSE 94; RESP 16; TEMP -17.7; TEMP 0; O2SAT 100
== END 2025-02-20 12:18 | disposition home or self-care (01) ==
PROVIDERS: Emergency Provider Emergency Medicine; PCP Nurse Practitioner Family
DX: R11.2 Nausea with vomiting, unspecified (principal); R59.0 Localized enlarged lymph nodes; I10 Essential (primary) hypertension; Z87.442 Personal history of urinary calculi; Z98.890 Other specified postprocedural states; Z88.1 Allergy status to other antibiotic agents; Z88.2 Allergy status to sulfonamides; Z88.5 Allergy status to narcotic agent; Z88.8 Allergy status to other drugs, medicaments and biological substances; Z91.041 Radiographic dye allergy status; Z03.818 Encounter for observation for suspected exposure to other biological agents ruled out
CPT/HCPCS: 74176; 80048; 80076; 81003; 83690; 85025; 87637; 93005; 96361; 96374; 96375; 99285; J2270; J2405; J2765

== ENCOUNTER → 2025-02-20 10:03 | Outpatient (BNV) | payer BC, SELFPAY | PROVIDERS: Emergency Provider Emergency Medicine; PCP Nurse Practitioner Family; Visit Provider Internal Medicine | DX: R10.13 Epigastric pain (principal) | CPT/HCPCS: 93010 ==

== ENCOUNTER → 2025-02-20 10:18 | Outpatient (BNV) | payer BC, SELFPAY | PROVIDERS: PCP Nurse Practitioner Family; Visit Provider Radiology Diagnostic Radiology | DX: N20.0 Calculus of kidney (principal); M47.817 Spondylosis without myelopathy or radiculopathy, lumbosacral region | CPT/HCPCS: 74176 ==

== ENCOUNTER 2025-03-19 10:16 | Emergency (ER) | payer BC, SELFPAY ==
--- OUTSIDE RECORDS SUMMARY | 2015-07-10 23:00 | XMS_ITS | Encounter Summary ---
Author Organization [facility] Address [address] [facility] [address] [place] [address] Phone Care Team Providers Care Leg Assembler Name Role Phone Unavailable Primary Care Provider Unavailabl e Encounter Details Date Type Department Care Team (Late st Contact Info) Description 07/11/2015 Hospital Encounter [facility] 55 [place] [address] Laci Gabriel MD [address] [address] [email or web address] Social History Tobacco Use Types Packs/Day Years Used Date Smoking Tobacco: Never Smokeless Tobacco: Never Alcohol Use Standard Drinks/Week Comments No 0 (1 standard drink = 0.6 oz pur e alcohol) Education Answer Date Recorded Are you interested in more education? Not on prachi e 07/31/2022 Are you concerned about learning? Not on file 07/31/2022 No 07/31/2022 No 07/31/2022 Digital Access Answer Date Recorded No 08/31/2022 No 08/31/2022 Reliable internet access at home? Not on file 08/31/2022 Device with a working camera? 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 Wish to be (Past 1 Month) No 05/16/2021 12:27 PM EST Armando Macdonald RN 2. Non-Specific Active Suicidal Thoughts (Past 1 Month) No 05/16/2021 12:27 PM EST Armando Macdonald RN 6. Suicidal Behavior (Lifetime) No 05/16/2021 12:27 PM EST Armando Macdonald RN documented as of this encounter Plan of Treatment Upcoming Encounters Date Type Department Care Team (Late st Contact Info) Description 04/17/2025 2:15 PM EST Office Visit DEPARTMENT OF UROLOGY [address] [place] [address] Paulie Lockwood MD [address] [place] [address] [email or web address] documented as of this encounter Procedures Procedure Name Priority Date/Time Associated Diagnosis Comments XR CHEST OUTSIDE (NO INTERPRETATION) Routine 07/11/2015 12:00 AM EDT documented in this encounter Results * XR Chest Outside (No Interpretation) (07/11/2015 12:00 AM EDT) Narrative [facility] [place] INTERFACES - 07/23/2015 9:08 AM EDT This study is for PACS storage only and not for interpretation. Procedure Note SYSTEMGENERATED, DOCUMENTATION - 07/23/2015 This study is for PACS storage only and not for interpretation. us Laci Gabriel MD IMG OUTSIDE IMAGING W/OUT INTERPRETATION Final Result [facility] [place] [facility] documented in this encounter Visit Diagnoses Not on filedocumented in this encounter Additional Health Concerns Infection Onset Date Last Indicated Resolved Time CoV-Risk 10/13/2019 10/14/2019 10/27/2019 3:34 AM EDT CoV-Exposed Comment:Recent close contact documented in the Travel/Symptom Screening Form 05/16/2021 05/16/2021 05/27/2021 1:[address] documented as of this encounter Additional Source Comments The information contained in this document represents components of the legal health record. It is not the complete legal health record.[facility]
--- OUTSIDE RECORDS SUMMARY | 2015-07-10 23:15 | XMS_ITS | Encounter Summary ---
Author Organization [facility] Address [address] [place] [address] Phone Care Team Providers Care Microbiological Analyst Name Role Phone Unavailable Primary Care Provider Unavailabl e Reason for Visit * MRI/CAT Scan - Closed Specialty Diagnoses / Procedures Referred By Contac t Referred To Contact Radiology Procedures MRI Brain Outside (No Interpretation) Laci Gabriel MD [address] [place] [address] Phone: tel: fax: mailto:[email or web address] Referral ID Status Reason Start Date Expiration Date Visits Re quested Visits Authorized [id number] Closed 07/23/2015 07/22/2016 1 1 Encounter Details Date Type Department Care Team ([facility] st Contact Info) Description 07/11/2015 12:15 AM EDT Hospital Encounter [facility] 55 [place] [address] Laci Gabriel MD [address] [place] [address] [email or web address] Social History Tobacco Use Types Packs/Day Years [...] 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 Wish to be (Past 1 Month) No 05/16/2021 12:27 PM Armando Merritt RN 2. Non-Specific Active Suicidal Thoughts (Past 1 Month) No 05/16/2021 12:27 PM EST Armando Macdonald RN 6. Suicidal Behavior (Lifetime) No 05/16/2021 12:27 PM Armando Merritt RN documented as of this encounter Plan of Treatment Upcoming Encounters Date Type Department Care Team (Late st Contact Info) Description 04/17/2025 2:15 PM EST Office Visit DEPARTMENT OF UROLOGY [address] [place] [address], [address] [place] [address] Paulie Lockwood MD [address] [place] [address] [email or web address] documented as of this encounter Procedures Procedure Name Priority Date/Time Associated Diagnosis Comments MRI BRAIN OUTSIDE (NO INTERPRETATION) Routine 07/11/2015 12:15 AM EDT documented in this encounter Results * MRI Brain Outside (No Interpretation) (07/11/2015 12:15 AM EDT) Narrative [facility]G INTERFACES - 07/23/2015 9:08 AM EDT This study is for PACS storage only and not for interpretation. Procedure Note SYSTEMGENERATED, DOCUMENTATION - 07/23/2015 This study is for PACS storage only and not for interpretation. us Laci Gabriel MD IMG OUTSIDE IMAGING W/OUT INTERPRETATION Final Result [facility] IM INTERFACES documented in this encounter Visit Diagnoses [...] It is not the complete legal health record.[facility]
--- OUTSIDE RECORDS SUMMARY | 2015-07-10 23:30 | XMS_ITS | Encounter Summary ---
Author Organization [facility] Address [address] [place] [address] Phone Care Team Providers Care Shellfish Processing Laborer Name Role Phone Unavailable Primary Care Provider Unavailabl e Reason for Visit * MRI/CAT Scan - Closed Specialty Diagnoses / Procedures Referred By Contac t Referred To Contact Radiology Procedures MRI Brain Outside (No Interpretation) Laci Gabriel MD [address] [place] [address] Phone: tel: fax: mailto:[email or web address] [email or web address] Referral ID Status Reason Start Date Expiration Date Visits Re quested Visits Authorized [id number] Closed 07/23/2015 07/22/2016 1 1 Encounter Details Date Type Department Care Team ([facility] st Contact Info) Description 07/11/2015 12:30 AM EDT Hospital Encounter [facility] General Imaging [address] [place] [address] Laci Gabriel MD [address] [place] [address] [email or web address] [email or web address] Social History Tobacco Use Types Packs/Day [...] 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 Not on file documented as of this encounter Functional Status * Calculated C-SSRS Risk Score (Lifetime/Recent) Answer Date of Assessment Author No Risk Indicated 05/16/2021 12:27 PM EST Carolyn Garcia RN * [place] Suicide Severity Rating Scale (Screener/Recent Self-Report) Question [...] PM EST Office Visit DEPARTMENT OF UROLOGY [address] [place] [address], [address] [place] [address] Paulie Lockwood MD [address] [place] [address] [email or web address] documented as of this encounter Procedures Procedure Name Priority Date/Time Associated Diagnosis Comments MRI BRAIN OUTSIDE (NO INTERPRETATION) Routine 07/11/2015 12:30 AM EDT documented in this encounter Results * MRI Brain Outside (No Interpretation) (07/11/2015 12:30 AM EDT) Narrative [facility] [place] - 07/23/2015 9:09 AM EDT This study is for PACS storage only and not for interpretation. Procedure Note SYSTEMGENERATED, DOCUMENTATION - 07/23/2015 This study is for PACS storage only and not for interpretation. us Laci Gabriel MD IMG OUTSIDE IMAGING W/OUT INTERPRETATION Final Result [facility] documented in this encounter Visit [...] It is not the complete legal health record.[facility]
--- OUTSIDE RECORDS SUMMARY | 2025-01-16 03:30 | XMS_ITS ---
Demographics Address [address] [place] [address] Mobile Email Address Preferred Language en Marital Status Unknown Buddhist Affiliation Unknown Race Unknown Ethnic Group or Author Organization Gómez Liu MD Address [address] [place] [phone] Care Team Providers Care Stitching Department Supervisor Name Role Phone Jane Dao Primary Care Provider REASON FOR VISIT 4m f/u HTN / BMI Encounters Encounter Location Date Provider Diagnosis Gómez Liu MD [address] [place] [address] [place] [phone] 01/16/2025 Jane Dao Plan Of Treatment Next Appt Details Provider Name:Jane Dao , 10/01/2025 08:30:00 AM, [address] [place] [address], [place] [address], [place], [place], [phone], Progress Notes * Patti SULLIVANDOB:[birth year] (50 yo F)Acc No.[id number]:01/16/2025 Progress Notes Patient: Patti OSBORNE Appointment Provider: Niru Dao DNP :1975 A ge:50 Y S ex:Female Date:01/16/2025 Address:[address], [id number] Subjective: * Chief Complaints: * 1 . 4m f/u HTN / BMI. * Medical History: Objective: * Vitals: Past Vitals:* 09/25/2024 Temp:97.0F, HR:93/min, BP:12 4/74mm Hg, Wt:204.8lbs, BMI:37.45Index, Ht:5 ft 2 in, Oxygen sat %:99% * 06/21/2024 Temp:96.5F, HR:105/min, BP:1 22/68mm Hg, Wt:198lbs, BMI:36.21Index, Ht:5 ft 2 in, Oxygen sat %:98% * 03/09/2024 Temp:96.7F, HR:102/min, BP:1 24/74mm Hg, Wt:194lbs, BMI:35.48Index, Ht:5 ft 2 in, Oxygen sat %:98% Assessment: Plan: * Treatment: * Images: Billing Information: * Visit Code: * Procedure Codes: * Electronic signature of Brittaney Dao DNP on 03/19/2025 at 08:36 PM EST Sign off status: Pending * Appointment Provider: Niru Dao DNP Date: Generated for Svitlana castrejon/Beatriz/Poppy on: 05/20/2024 08:36 PM EST
--- OUTSIDE RECORDS SUMMARY | 2025-02-05 03:30 | XMS_ITS ---
Author Organization [facility] [address] Address [address] [place] [address] Care Team Providers Care Dictating Machine Transcriber Name Role Phone Jane Dao Primary Care Provider UnavailLinda Fletcher Unavailable [phone] Encounters Encounter Location Date Provider Diagnosis [facility] [address] [address] 02/05/2025 Linda Adan Plan Of Treatment Next Appt Details Provider Name:BANG ELLISON, 09:00:00 AM, [address], [place], [address], Progress Notes * VONDA SULLIVANDOB:[birth year] (50 yo F)Acc No.[id number]:02/05/2025 Patient: VONDA OSBORNE Provider: Francisca Adan PA-C :1975 A ge:50 Y S ex:Female Date:02/05/2025 Address:[address], [id number] Pcp:Jane Dao * Electronic signature of Kinsey Adan PA-C on 03/19/2025 at 08:37 PM EST Sign off status: Pending * Provider: Francisca Adan PA-C Date: 04/07/2024 Generated for Printi ng/Faxing/eTransmitting on: 05/20/2024 08:37 PM EST
--- OUTSIDE RECORDS SUMMARY | 2025-03-13 05:11 | XMS_ITS ---
Author Organization [facility] Address [address] [place] [id number] Care Team Providers Care Bicycle Courier Name Role Phone Jane Dao Primary Care Provider [phone] Reason For Referral Diagnosis 1 Hypertensive chronic kidney disease with stage 1 through stage 4 chronic kidney disease, or unspecified chronic kidney disease (I12.9) Referral Organization [facility] Referring Provider First Name Jane Referring Provider Last Name Feliberto Referring Provider Speciality Nurse Prac titioner Referred Provider Loreto Ramirez Referred Provider Specialty Cardiology General Notes Karime YAN 03/05 12:59:25 PM >faxed Referral Priority Routine REASON FOR VISIT New Referral Request Encounters Encounter Location Date Provider Diagnosis [facility] [address] [phone] 03/13/2025 Jane Dao Hypertensive chronic kidney disease with stage 1 through stage 4 chronic kidney disease, or unspecified chronic kidney disease I12.9 Assessments Encounter Date Diagnosis (ICD Code) Assessment Notes Treatment Notes Treatment Clinical Notes Section Notes 03/13/2025 Hypertensive chronic kidney disease with stage 1 through stage 4 chronic kidney disease, or unspecified chronic kidney disease (ICD-10 - I12.9) Plan Of Treatment Referrals Referral Date Details 03/13/2025 03/13/2025L[place]to Next Appt Details Provider Name:Jane Dao , 10/01/2025 08:30:00 AM, [address] [place] [address], [place] [id number], [place], [place], [phone], Progress Notes * Ashwini SULLIVAN:[birth year] (50 yo F)Acc No.[id number]:03/13/2025 Patient: Patti OSBORNE :1975 A ge:50 Y S ex:Female Address:[address] [place] [address], [address] , [place] [address] Subjective: * Chief Complaints: * N ew Referral Request * Medical History: * Surgical History: * Hospitalization/Major Diagno stic Procedure: * Medications: Objective: * Vitals: Past Vitals:* 09/25/2024 Temp:97.0F, HR:93/min, BP:12 4/74mm Hg, Wt:204.8lbs, BMI:37.45Index, Ht:5 ft 2 in, Oxygen sat %:99% * 06/21/2024 Temp:96.5F, HR:105/min, BP:1 22/68mm Hg, Wt:198lbs, BMI:36.21Index, Ht:5 ft 2 in, Oxygen sat %:98% * 03/09/2024 Temp:96.7F, HR:102/min, BP:1 24/74mm Hg, Wt:194lbs, BMI:35.48Index, Ht:5 ft 2 in, Oxygen sat %:98% * Physical Examination: Assessment: * Assessment: 1. H ypertensive chronic kidney disease with stage 1 through stage 4 chronic kidney disease, or unspecified chronic kidney disease - I12.9 (Primary) Plan: * Treatment: * Procedure Codes: * * Date: Consultation Request Notes Referral Date Referring Provider Referred Provider Not 03/13/2025 Jane Dao Hariharan
--- NOTE | ~2025-03-19 | XR_ITS ---
EXAMINATION: XR CHEST CLINICAL INFORMATION: SOB COMPARISON: 07/28/2022 TECHNIQUE: 2 views of the chest were obtained. FINDINGS: No significant abnormality is noted involving the heart, lungs, mediastinum, bony thorax or soft tissues. XR/XR chest 2V IMPRESSION: Stable chest x-ray, no acute disease Electronically signed by: Ganesh Cortez MD 03/19/2025 11:12 AM [facility]
[2025-03-19 10:56] VITALS: BP 150/98; PULSE 92; RESP 20; TEMP 36.4; O2SAT 98; BMI 37.3
--- NOTE | 2025-03-19 10:56 | ED.GENADULT ---
HPI - General Adult General Chief complaint: Asthma Stated complaint: asthma Time Seen by Provider: 03/19/25 15:01 Source: patient Mode of arrival: ambulatory Limitations: no limitations History of Present Illness ED Provider: HPI narrative: ? Life-long asthma treated only with rescue inhaler and home nebulizer as needed; no maintenance inhaled steroid for several years. ? ~5 days ago developed worsening chest tightness, anterior chest discomfort, and shortness of breath; used rescue inhaler without relief. ? Evaluated at outside urgent care: started on prednisone 50 mg PO daily and nebulized bronchodilator (?updrafts?) without improvement. Viral swab performed at urgent care was negative; chest X-ray and blood work reportedly unremarkable. ? Telemedicine visit this morning advised patient to present to our facility for further evaluation and additional steroids. ? Current symptoms: ongoing shortness of breath, chest discomfort ?up here,? mild voice change, and difficulty speaking secondary to dyspnea. ? Denies leg swelling or abdominal complaints. ? No history of tobacco use. Otherwise healthy. ? No current food photographer; has not seen one in years. Has a primary care provider. Review of Systems: Constitutional: No fever discussed. Respiratory: Positive for shortness of breath; reports chest tightness. Cardiovascular: Chest discomfort as above; denies leg swelling. GI: Denies abdominal symptoms. HEENT: Mild voice change. Related Data Home Medications ?Medication ?Instructions ?Recorded ?Confirmed losartan 50 mg tablet 50 mg PO DAILY 04/24/22 01/31/25 albuterol sulfate 90 mcg/actuation 2 puff inhalation Q4H PRN wheezing 08/06/22 01/31/25 aerosol inhaler ibuprofen 800 mg tablet 800 mg PO Q8H PRN Pain 08/19/22 02/02/25 tamsulosin 0.4 mg capsule (Flomax) 0.4 mg PO DAILY 06/28/23 01/31/25 hydromorphone 2 mg tablet 2 mg PO BID PRN Severe Pain (Scale 06/16/24 01/31/25 Score 7-10) magnesium 200 mg tablet 300 mg PO DAILY 06/16/24 01/31/25 vitamin B complex 1 tab PO DAILY 06/16/24 01/31/25 levocetirizine 5 mg PO BEDTIME PRN Allergic 02/02/25 02/02/25 Symptoms semaglutide (weight loss) 0.5 0.5 mg subcut QWEEK 02/02/25 02/02/25 mg/0.5 mL subcutaneous pen injector (Karly) Previous Rx's ?Medication ?Instructions ?Recorded ondansetron 4 mg disintegrating 4 mg PO Q8H PRN nausea and 06/18/24 tablet vomiting #15 tabs metoclopramide HCl 10 mg tablet 10 mg PO Q8H PRN nausea and 02/20/25 (Reglan) vomiting 5 days #20 tabs budesonide 180 mcg/actuation 1 inh inhalation BID #1 ea 03/19/25 breath activated powder inhaler doxycycline hyclate 100 mg capsule 100 mg PO BID 7 days #14 caps 03/19/25 levalbuterol tartrate 45 2 inh inhalation Q6H PRN shortness 03/19/25 mcg/actuation aerosol inhaler of breath or wheezing #15 grams (Xopenex HFA) prednisone 20 mg tablet 40 mg (2 x 20 mg) PO DAILY 3 days 03/19/25 #6 tabs Allergies Allergy/AdvReac Type Severity Reaction Status Date / Time cephalexin (CEPHALEXIN) Allergy Severe SWELLING Verified 03/19/25 10:59 clavulanic acid (From Allergy Severe ANAPHYLAXIS Verified 03/19/25 10:59 AUGMENTIN) clindamycin (CLINDAMYCIN) Allergy Severe TONGUE Verified 03/19/25 10:59 SWELLING codeine Allergy Severe PASSED OUT Verified 03/19/25 10:59 influenza virus vaccine, Allergy Severe ANAPHYLAXIS Verified 03/19/25 10:59 specific (FLU VACCINE) perflutren (From Definity) Allergy Severe hives/anaph Verified 03/19/25 10:59 ylaxis seafood Allergy Severe Anaphylaxis Verified 03/19/25 10:59 fluconazole Allergy Intermediate HIVES Verified 03/19/25 10:59 gentamicin (GENTAMICIN) Allergy Intermediate RASH Verified 03/19/25 10:59 Iodinated Contrast Media (IV Allergy Intermediate Hives Verified 03/19/25 10:59 Contrast Dye) oxycodone Allergy Intermediate SOB Verified 02/20/25 09:13 sulfamethoxazole (From Allergy Mild swelling Verified 02/20/25 09:13 Bactrim) trimethoprim (From Bactrim) Allergy Mild swelling Verified 02/20/25 09:13 pineapple Allergy Anaphylaxis Verified 02/20/25 09:13 scopolamine AdvReac Severe Vomiting Verified 02/20/25 09:13 midazolam AdvReac Intermediate Vomiting Verified 02/20/25 09:13 Review of Systems Constitutional: Constitutional: Reports as per [facility] Past Medical History Medical History Liver cyst History of COVID-19 Post-operative nausea and vomiting NAFLD (nonalcoholic fatty liver disease) Morbid obesity with BMI of 40.0-44.9, adult H/O ganglion cyst Essential hypertension NSVT (nonsustained ventricular tachycardia) Vertigo Kidney stones Migraine Fibromyalgia HTN (hypertension) Asthma PAC (premature atrial contraction) PVC (premature ventricular contraction) Surgical History History of suburethral sling procedure History of hysterectomy History of endometrial ablation Hx of cystoscopy Hx of lithotripsy H/O esophagogastroduodenoscopy H/O colonoscopy Family History Family History Father Skin cancer Cardiovascular disease Myocardial infarction Hypertension IBS (irritable bowel syndrome) Mother Hypertension Sister Myocardial infarction Hypertension Heartburn Paternal Uncle Colon cancer Paternal Grandmother Colon cancer Social History Social History Household Members: Children Housing: Apartment Do you presently have visiting nurse or other home services: No Alcohol intake: current Alcohol intake frequency: holidays/special occasions only Patient Tobacco Use Status: Never used Tobacco Second Hand Smoke Exposure: No Advance Directives: Yes Advance Directives on File: Yes Advance Directives Date on File: 08/21/21 service: No Current occupational status: employed Physical Exam ED Exam Exam: HEENT: Oropharynx without erythema or exudate. Respiratory: Lungs clear to auscultation bilaterally; no wheezes appreciated. Chest Wall: Non-tender to palpation, though patient reports subjective anterior chest discomfort consistent with costochondritis. Abdomen: Patient reports belly is okay. Extremities: No leg swelling. Alert and oriented x4 Vital Signs: Vital Signs - 24 hr 03/19/25 10:56 Temperature 97.6 F Pulse Rate 92 Respiratory Rate 20 Blood Pressure 150/98 H Pulse Oximetry 98 Oxygen Delivery Method Room Air BMI result Body Mass Index 37.3 Course Course Course Narrative: Rapid medical examination performed in triage by Louise Knott PA-C: Patient is a 50 year old assigned female at presenting to the emergency department with an asthma exacerbation. Patient states that she has been on prednisone at home and it isn't helping as well as her breathing treatmnts. Detailed physical exam and review of systems are deferred to the textile pin worker. Labs, imaging, swabs ordered. Patient placed back in the waiting room pending room availability and results. Medications Administered Discontinued Medications Generic Name Dose Route Start Last Admin Trade Name Jessica PRN Reason Stop Dose Admin Doxycycline Monohydrate 100 mg 03/19/25 15:20 03/19/25 15:29 Doxycycline Monohydrate 100 Mg Capsule PO 03/19/25 15:21 100 mg ONCE ONE Administration Prednisone 60 mg 03/19/25 15:20 03/19/25 15:29 Prednisone 20 Mg Tablet PO 03/19/25 15:21 60 mg ONCE ONE Administration Medical Decision Making Medical Decision Making MDM Narrative: 3:24 PM 03/19/2025 (Dr. Myron Moore): Asthmatic patient with sub-acute worsening shortness of breath and chest discomfort after viral illness; exam and prior work-up without evidence of pneumonia or cardiac pathology. Likely viral bronchitis with asthma exacerbation and associated musculoskeletal chest pain (costochondritis). Problem #1: Asthma exacerbation / viral bronchitis Assessment: Worsening dyspnea and chest tightness for 5 days; minimal response to prior oral prednisone and nebulized bronchodilator; lungs clear, no wheeze; EKG and X-ray unremarkable. Plan: - Continue short course of oral prednisone (additional prescription provided). - Initiate maintenance inhaled corticosteroid (formulation to be determined by insurance coverage) for improved long-term control. Citation: Escalation to daily low-dose inhaled corticosteroid is indicated after an oral steroid-requiring exacerbation, per current NHLBI and LEONARD guidelines; recommended starting regimens include fluticasone propionate 100?125 mcg BID or budesonide 200 mcg BID. - Provide nebulized bronchodilator solution (Zopenex vials) for home use. Citation: FDA labeling recommends levalbuterol nebulizer solution 0.63?1.25 mg every 6?8 hours, not to exceed three doses per day, for adults with asthma. - Empiric antibiotic: doxycycline prescribed for possible bronchitis (alternative to azithromycin). Problem #2: Musculoskeletal chest pain (costochondritis) Assessment: Anterior chest discomfort likely secondary to frequent coughing; non-tender on exam, consistent with costochondral inflammation. Plan: - Reassurance provided regarding benign etiology. -We will obtain ECG - Expect symptom improvement as underlying airway inflammation resolves. - Patient advised to monitor and return for worsening or concerning symptoms. Medications Prescribed Today - Prednisone ? short course extension (dose per prior urgent care regimen). - Inhaled corticosteroid (maintenance) . - Zopenex (levalbuterol) nebulizer vials. - Doxycycline ? standard bronchitis course. Differential Diagnosis Differential Diagnoses: The differential diagnosis associated with the presentation includes (CHF, COPD exacerbation, pneumonia, pneumothorax, ACS, PE,) Admission/Observation Consideration of admission/observation: Escalation of care including admission/observation considered Lab Data MDM Lab Attestation statement: I reviewed the patient's lab results. 03/19/25 11:35 03/19/25 11:35 Labs: Lab Results 03/19/25 03/19/25 Range/Units 11:35 11:43 WBC 10.8 (4.8-10.8) X10*3/uL RBC 4.50 (4.20-5.50) X10*6/uL Hgb 12.9 (12.0-16.0) g/dl Hct 39.0 (37.0-47.0) % MCV 86.7 (80.0-98.0) fL MCH 28.7 (27.0-33.0) pg MCHC 33.1 (31.0-35.0) g/dl RDW 13.5 (11.0-16.0) % Plt Count 228 (160-400) X10*3/uL MPV 10.4 (9.4-12.3) fL Immature Gran % (Auto) 0.7 H (0.0-0.4) % Neut % (Auto) 49.0 (45-73) % Lymph % (Auto) 39.9 (20-40) % [place] % (Auto) 7.7 (2-11) % Eos % (Auto) 2.0 (0-4) % Baso % (Auto) 0.7 (0-2) % Lymph # (Auto) 4.3 (1.2-4.9) X10*3/uL [place] # (Auto) 0.8 (0.1-1.2) X10*3/uL Eos # (Auto) 0.2 (0.0-0.4) X10*3/uL Baso # (Auto) 0.1 (0.0-0.2) X10*3/uL Abs Immat Gran (auto) 0.08 H (0.00-0.03) X10*3/uL Absolute Neuts (auto) 5.3 (2.0-8.3) x10*3/uL Absolute Nucleated RBC 0.000 (0.0-0.012) X10*3/uL Nucleated RBC % (auto) 0.0 (0.0-0.2) /100WBC VBG pH 7.41 (7.32-7.43) VBG pCO2 50 mmHg VBG pO2 49 mmHg VBG HCO3 31 H (22-26) mmol/L VBG O2 Saturation 74.0 % VBG Base Excess 6.1 mmol/L Sodium 144 (135-145) mmol/L Potassium 3.5 (3.3-5.1) mmol/L Chloride 111 H (96-108) mmol/L Carbon Dioxide 25 (22-29) mmol/L Anion Gap 12 (12-20) BUN 21 H (9-16) mg/dL Creatinine 0.86 (0.5-1.4) mg/dL Estim Creat Clear Calc 81.0 Estimated GFR > 60 Random Glucose 80 (60-115) mg/dL Calcium 8.7 D (8.4-10.2) mg/dL Magnesium 2.2 (1.6-2.6) mg/dL Total Bilirubin 0.6 (0.0-1.0) mg/dL AST 24 (5-31) U/L ALT 42 H (0-31) U/L Alkaline Phosphatase 126 H (39-117) U/L Total Protein 7.0 (6.5-8.0) g/dL Albumin 4.0 (3.5-5.0) g/dL Influenza Type A (PCR) NEGATIVE (Negative) Influenza Type B (PCR) NEGATIVE (Negative) RSV RNA Qual (PCR) NEGATIVE (Negative) SARS-CoV-2 RNA (RT-PCR) NEGATIVE (Negative) Independent Interpretation I performed an independent interpretation of an: EKG (80 beats per minute otherwise normal ECG without dysrhythmia, AV anita blocks or ST-T changes to suspect underlying ACS, my independent interpretation) and Plain X-Ray (My independent chest xray interpretation: Lungs: Lungs are clear bilaterally without evidence of focal consolidation, pleural effusion, or pneumothorax. Cardiac silhouette is unremarkable, no obvious mediastinal widening, no obvious bony abnormalities such as fractures. Impression: Normal chest X-r) Radiology Impression Discussion of test interpretation with radiology: I have reviewed the radiologist's reading. (RDER #: [id number] XR/XR chest 2V IMPRESSION: Stable chest x-ray, no acute diseas) Prescription Management I considered prescription management with: Antibiotic Chronic Conditions Patient?s care impacted by: Other (Longstanding asthma) Discharge Plan Discharge Clinical Impression: Acute bronchitis, unspecified, Chest pain, precordial, Asthma Instructions: Asthma (ED) Additional Instructions: Continue antibiotics 1 more dose today, steroids starting tomorrow, start inhaled steroids today as well, x-ray, EKG, viral swab, physical exam otherwise reassuring follow up with the PCP any other issues or concerns come back to the ER Prescriptions: New levalbuterol tartrate [Xopenex HFA] 45 mcg/actuation HFA aerosol inhaler 2 inh inhalation Q6H PRN (Reason: shortness of breath or wheezing) Qty: 15 0RF prednisone 20 mg tablet 40 mg PO DAILY 3 Days Qty: 6 0RF budesonide 180 mcg/actuation aerosol powdr breath activated 1 inh inhalation BID Qty: 1 0RF doxycycline hyclate 100 mg capsule 100 mg PO BID 7 Days Qty: 14 0RF No Action albuterol sulfate 90 mcg/actuation HFA aerosol inhaler 2 puff inhalation Q4H PRN (Reason: wheezing) hydromorphone 2 mg tablet 2 mg PO BID PRN (Reason: Severe Pain (Scale Score 7-10)) vitamin B complex Tablet 1 tab PO DAILY magnesium 200 mg Tablet 300 mg PO DAILY ondansetron 4 mg tablet,disintegrating 4 mg PO Q8H PRN (Reason: nausea and vomiting) Qty: 15 0RF Wegovy 0.5 mg/0.5 mL pen injector 0.5 mg subcut QWEEK levocetirizine 5 mg PO BEDTIME PRN (Reason: Allergic Symptoms) metoclopramide HCl [Reglan] 10 mg tablet 10 mg PO Q8H PRN (Reason: nausea and vomiting) 5 Days Qty: 20 0RF losartan 50 mg tablet 50 mg PO DAILY ibuprofen 800 mg tablet 800 mg PO Q8H PRN (Reason: Pain) tamsulosin [Flomax] 0.4 mg capsule 0.4 mg PO DAILY Print Language: Tunisian
[2025-03-19 11:41] LABS: MANUAL DIFF FLAG NO
[2025-03-19 11:49] LABS: VBG HCO3 31 mmol/L (22-26); VBG O2 % Saturation 74.0 %
[2025-03-19 11:50] LABS: Hematocrit 39.0 % (37.0-47.0); Hemoglobin 12.9 g/dl (12.0-16.0); Imm Gran Abs Auto 0.08 X10*3/uL (0.00-0.03); Imm Gran Pct Auto 0.7 % (0.0-0.4); Lymphocytes Absolute Auto 4.3 X10*3/uL (1.2-4.9); Mean Corpuscular HGB Conc 33.1 g/dl (31.0-35.0); Mean Corpuscular Hemoglobin 28.7 pg (27.0-33.0); Mean Corpuscular Volume 86.7 fL (80.0-98.0); NRBC Abs Auto 0.000 X10*3/uL (0.0-0.012); NRBC Pct Auto 0.0 /100WBC (0.0-0.2); Platelet Count 228 X10*3/uL (160-400); Red Blood Count 4.50 X10*6/uL (4.20-5.50); White Blood Count 10.8 X10*3/uL (4.8-10.8)
[2025-03-19 11:55] LABS: Venous Blood Gas Refer to POC result
[2025-03-19 11:57] LABS: Alanine Aminotransferase 42 U/L (0-31); Albumin Level 4.0 g/dL (3.5-5.0); Alkaline Phosphatase 126 U/L (39-117); Anion Gap 12 (12-20); Aspartate Amino Transferase 24 U/L (5-31); Blood Urea Nitrogen 21 mg/dL (9-16); Calcium 8.7 mg/dL (8.4-10.2); Carbon Dioxide 25 mmol/L (22-29); Chloride 111 mmol/L (96-108); Creatinine Clr Calc Pharmacy 81.0; Estimated Glomerular Filt Rate > 60; Magnesium 2.2 mg/dL (1.6-2.6); Potassium 3.5 mmol/L (3.3-5.1); Sodium 144 mmol/L (135-145); Total Protein 7.0 g/dL (6.5-8.0)
[2025-03-19 12:28] LABS: Resp Syncy Virus RNA Qual PCR NEGATIVE (Negative); SARS COV2 PCR INHOUSE NEGATIVE (Negative)
--- NOTE | 2025-03-19 15:36 | ECG_ITS ---
Test Reason : SOB Blood Pressure : */* mmHG Vent. Rate : 80 BPM Atrial Rate : 80 BPM P-R Int : 130 ms QRS Dur : 86 ms QT Int : 384 ms P-R-T Axes : 35 9 1 degrees QTcB Int : 442 ms Normal sinus rhythm with sinus arrhythmia Normal ECG When compared with ECG of 20-Feb-2025 10:07, No significant change was found Referred By: Myron Moore Electronically Signed By: Jonathan Chance
[2025-03-19 16:03] VITALS: BP 150/104; PULSE 99; RESP 18; TEMP 36.7; O2SAT 99
--- OUTSIDE RECORDS SUMMARY | 2025-03-19 20:36 | XMS_ITS | Data Portability ---
Author Organization [place] [facility] Address [address] [place] [id number] Care Team Providers Care C++ Quant Developer Name Role Phone ILIA COLEMAN Primary [...] Orders Zofran 4 mg tablet 021 08/17/19 21 [id number], [address], [place], [id number], 13:08:05 Patient TargetsNo targets recorded. Patient Instructions Encounter Date Encounter Id Patient Instructions Last Modified By Organization Details Last Modified Time 08/16/2020 [id number] YOU HAVE BEEN EXPOSED TO COVID IN [...] TOLERATED. FOLLOW UP WITH YOUR PCP AND/OR MGMT CONSULTANT NEEDED. What is coronavirus disease 2019? Coronavirus disease 2019 (COVID-19) is a respiratory illness that can spread from person to person. The virus that causes COVID-19 is a novel coronavirus that was first identified during an investigation into an outbreak in [facility]. Can I get COVID-19? Yes. COVID-19 [...] least 20 seconds. Use an alcohol-based hand medical billing associate that contains at least 60% alcohol if [...] completed Chacha Thorpe, RAHUL [address], [place], [address], [place] [facility] 08/16/2020 11:55:49 procedure on kidney completed Chacha Thorpe, RAHUL [address], [place], [address], [place] [facility] 08/16/2020 11:55:56 procedure on ganglion cyst completed Chacha Thorpe, RAHUL [address], [place], [address], [place] [facility] 08/16/2020 11:56:03 D&c of cervical stump completed Chacha Thorpe NP [address], [place], [address], [place] [facility] 08/16/2020 11:56:17 lithotripsy completed Chacha Thorpe, RAHUL [address], [place], [address], [place] [facility] 08/16/2020 11:57:09 Imaging Results None recorded. Procedure Notes None recorded. Medical Equipment None Reported. Allergies Allergen ID Allergen Name Allergen Category Reaction Reaction Severity Criticality Documentation Date Start Date Code Code System Note Provider Name and Address Organization Details Recorded Time [id number] acetamino phen / oxycodone medicatio n Not available Not available Not available 08/16/2020 93012 3 RxNorm Chacha Thorpe, RAHUL [address], [place], [address], [place] [facility] 11:50:17 [id number] codeine medicatio n Not available Not available Not available 08/16/2020 2670 RxNorm Chacha Thorpe, RAHUL [address], [place], [address], [place] [facility] 11:50:26 [id number] Bactrim medicatio n Not available Not available Not available 08/16/2020 46302 9 RxNorm Chacha Thorpe, RAHUL [address], [place], [address], [place] [facility] 11:50:34 [id number] midazolam hydrochlo ride medicatio n Not available Not available Not available 08/16/2020 46191 8 RxNorm Chachabrayden Thorpe, FOSTER WINDER [address], [facility] [place], [address], [place] [facility] 11:50:41 [id number] Augmentin medicatio n Not available Not available Not available 08/16/2020 05440 2 RxNorm Chachabrayden Thorpe, FOSTER WINDER [address], [facility] [place], [address], [place] [facility] 11:50:50 [id number] cephalexi n medicatio n Not available Not available Not available 08/16/2020 2231 RxNorm Chachabrayden Thorpe, FOSTER WINDER [address], [place], [address], [place] [facility] 11:51:05 [id number] clindamyc in Not available Not available Not available Not available 08/16/2020 2582 RxNorm Chachabrayden Thorpe, FOSTER WINDER [address], [place], [address], [place] [facility] 11:51:16 [id number] gentamici n medicatio n Not available Not available Not available 08/16/2020 68353 50 RxNorm Chachabrayden Thorpe, FOSTER WINDER [address], [facility] [place], [address], [place] [facility] 11:51:26 [id number] oxycodone medicatio n Not available Not available Not available 08/16/2020 7804 RxNorm Chachabrayden Thorpe, FOSTER WINDER [address], [place], [address], [place] [facility] 11:51:32 [id number] Diflucan medicatio n Not available Not available Not available 08/16/202001214 3 RxNorm Chachabrayden Thorpe, FOSTER WINDER [address], [place], [address], [place] [facility] 11:51:40 [id number] fluconazo le medicatio n Not available Not available Not available 08/16/2020 4450 RxNorm Chacha Thorpe, RAHUL [address], [place], [address], [place] [facility] 11:51:48 [id number] Iodinated contrast media (substanc e) medicatio n Not available Not available Not available 08/16/2020 14619 2004 SNOMED Chacha Thorpe, FOSTER WINDER [address], [place], [address], [place] [facility] 11:52:07 [id number] influenza A (H5N1) virus vaccine monoval (18y up) Not available Not available Not available Not available 08/16/2020 Chacha Thorpe, RAHUL [address], [place], [address], [place] [facility] 11:52:15 [id number] Definity medicatio n Not available Not available Not available 08/16/2020 62772 5 RxNorm Chacha Thorpe, RAHUL [address], [place], [address], [place] [facility] 11:52:30 [id number] shellfish derived food,medi cation Not available Not available Not available 08/16/2020 Chacha Thorpe, RAHUL [address], [place], [address], [place] [facility] 11:52:40 [id number] pineapple extract food Not available Not available Not available 08/16/2020 55557 74 RxNorm Chacha Thorpe, FOSTER WINDER [address], [place], [address], [place] [facility] 11:52:49 [...] BID RINSE MOUTH AND THROAT AFTER USE 08/16 completed Not Available Not Available Not Available Vitals Date Recorded Respiratory rate Heart rate Oxygen saturation Body temperature Systolic And Diastolic Provider Name and Address Organization Details Last Updated DateTime 18 /min 92 /min 99 % 97.8 [degF] 138/82 mm[Hg] Not Available [facility] 11:53:54 Social History Question Answer Notes LastModified by Organizat ion Details LastModified Time Tobacco Smoking Status Never Smoker Chacha Thorpe, RAHUL [address] [place] [address], [address], [place] - [facility] 08/16/2020 11:54:51 Do You [...] Visiting Friends Or Family Or Going To Buddhism Or Club Meetings) 1 Or 2 Times [...] Diagnosis SNOMED-CT Code Diagnosis ICD10 Code Diagnosis IMO Codes Diagnosis Note [id number] Chacha Thorpe, RAHUL [facility] [address] [place] [address] 08/16/2020 11:48:03 08/19/2020 12:42:23 Suspected COVID-19 [id number] Z03.89 Overview/H istory: Patient is an alert [...] time. Proper Personal Protective Equipment (PPE), including gloves, eye protection , N95 mask, gown, and shoe covers were donned and doffed elian ibarra and all equipment cleaned using approved technique with germicidal disposable wipes prior to and after care of this patient according to [facility]'s infection prevention protocols. med rec completjed In order to obtain further informatio n and compare any laboratory results/va lues, I have accessed old patient records. This informatio n was pertinent in my medical decision making today. Nausea [id number] R11.0 Health Concerns Section Related Observation LastModified by Organization Detai ls LastModified Time None Recorded Concern Status LastModified by Organization Details LastModified Time None Recorded Advance Directives Directive N: Payers Insurance Date Sequence Insurance Name Policy Number Policy Wiggins Covered Member ID Wiggins Member ID Guarantor Name 08/16/2020 1 *SELF PAY* Patti Drake 0000 Patti Drake 08/16/2020 1 *SELF PAY* Patti Drake [id number] [facility] Drake Notes Date Note Type Note Provider Name and Address Organization Details Recorded Time 08/16/2020 text/html COVID-19 Symptom s August 2019Reported by Patient Patient is a 45 year old alert [...] aneurysm, vertigo, fibromyalgia. Chacha Thorpe, RAHUL [address], [place], [address], [place] [facility] 08/16/2020 13:12:29 OBGyn Episode No OBEpisode recorded.
--- OUTSIDE RECORDS SUMMARY | 2025-03-19 20:36 | XMS_ITS | Patient Health Record ---
Author Organization [facility] [address] Address [address] [place] [address] Care Team Providers Care Shopping Investigator Name Role Phone Jane Dao Primary Care Provider UnavailLinda Fletcher Unavailable [phone] BANG ELLISON Unavailable [phone] Allergies Allergen (clinical drug ingredient) Drug/Non Drug [...] Duration) Notes Start Date End Date Status Meclizine HCl 25 MG Tablet 1 tablet as needed Orally every 12 hrs As needed 01/08/2025 Active Levocetirizine Dihydrochloride 5 MG Tablet 1 tablet in the evening Orally Once a day 01/08/2025 Active Xopenex HFA 45 MCG/ACT Aerosol 1 puff as needed Inhalation every 6 hrs 01/08/2025 Active Pyridium 100 MG Tablet 2 tablets after m eals Orally Three times a day 01/08/2025 Active Nurtec 75 MG Tablet Disintegrating 1 tablet on the tongue and allow to dissolve Orally daily As needed 01/08/2025 Active Zepbound 2.5 MG/0.5ML Solution Auto-injector 2.5mg Subcutaneous weekly; Duration: 28 days 02/26/2025 Active Losartan Potassium 50 MG Tablet 1 tablet Orally Once a day Active Ondansetron 4 MG Tablet Disintegrating 1 tablet on the tongue and allow to dissolve Orally Once a day; Duration: 30 days 02/01/2025 Active LORazepam 0.5 MG Tablet 1 tablet at bedt arden as needed Orally Once a day Active Wegovy 1 MG/0.5ML Solution Auto-injector 0.5 mL Subcutaneous weekly; Duration: 30 days 02/12/2025 Active Dilaudid 2 MG Tablet 1 tablet as needed Orally daily As needed Active Social History Tobacco Use: Social History Observation Description Date Details (start date - stop date) Never Smoker NA - NA Social History Tobacco Use: Social Info Question Answer Notes Tobacco Control (Standard) Tobacco use: Nonsmoker Additional Details Category Social Info Options Details Drugs/Alcohol: Do you smoke marijuana? De nies Do you drink alcohol? No Section Notes: Patient does not live alone Patient does not live alone Patient does not live alone Problems Problem Type SNOMED Code ICD Code Onset Dates Problem Status W/U Status Risk Notes Problem Essential hypertension (99095055) Essential hypertension (I10) Active confirmed Problem Obese class II (641596619171751 ) BMI 37.0-37.9, adult (Z68.37) Active confirmed Problem Mild intermittent asthma (375114899) Mild intermittent asthma without complication (J45.20) Active confirmed Problem Fatty liver (855395711) Fatty liver disease, nonalcoholic (K76.0) Active confirmed Problem Obesity (362125352) Moderate obesity (E66.9) Active confirmed Vital Signs Heart Rate 86 /min 02/12/2025 Oximetry 97 % 02/12/2025 Blood pressure diastolic 80 mm Hg 02/12/2025 Height 62.5 in 02/12/2025 Blood pressure systolic 124 mm Hg 02/12/2025 Weight 207.4 lbs 02/12/2025 BMI 37.33 kg/m2 02/12/2025 Encounters Encounter Location Date Provider Diagnosis [facility] [address] [place] [id number] 12/11/2024 Linda Normoyle Moderate obesity E66 .9 ; BMI 37.0-37.9, adult Z68.37 ; Dietary counseling and surveillance Z71.3 ; Essential hypertension I10 ; Fatty liver disease, nonalcoholic K76.0 ; Mild intermittent asthma without complication J45.20 and Encounter for examination of blood pressure without abnormal findings Z01.30 [facility] [address] 01/08/2025 Linda Normoyle BMI 37.0-37.9, adult Z68.37 ; Moderate obesity E66.9 ; Dietary counseling and surveillance Z71.3 ; Essential hypertension I10 ; Fatty liver disease, nonalcoholic K76.0 ; Mild intermittent asthma without complication J45.20 and Encounter for examination of blood pressure without abnormal findings Z01.30 [facility] [address] 02/12/2025 Linda Normoyle BMI 37.0-37.9, adult Z68.37 ; Moderate obesity E66.9 ; Dietary counseling and surveillance Z71.3 ; Essential hypertension I10 ; Fatty liver disease, nonalcoholic K76.0 ; Mild intermittent asthma without complication J45.20 and Encounter for examination of blood pressure without abnormal findings Z01.30 [facility] [address] 12/11/2024 Linda Normoyle [facility] [address] 12/11/2024 Linda Normoyle Moderate obesity E66 .[address] [facility] [address] [place] [address] 12/12/2024 Linda Normoyle [facility] [address] [place], [place] 12/13/2024 Linda Normoyle [facility] [address] 02/01/2025 Linda Normoyle [facility] [address] [place] [address] 02/23/2025 Linda Normoyle [facility] [address] [place], [place] 02/23/2025 Linda Normoyle Moderate obesity E66 .9 [facility] [address] 02/27/2025 Linda Normoyle [facility] [address] [phone] 03/08/2025 BANG ELLISON Assessments Encounter Date Diagnosis (ICD Code) Assessment [...] management. Consider group exercises. Consider hiring a net trainer. Regular exercise is stone to sustainable [...] counseling and psychiatry and Dr Camp at [facility]. We would like to cover regular topics [...] Dictation was accomplished with the use of Jumbas voice recognition software, prone to medical misidentifications [...] management. Consider group exercises. Consider hiring a net trainer. Regular exercise is stone to sustainable [...] counseling and psychiatry and Dr Camp at [facility]. We would like to cover regular topics [...] Dictation was accomplished with the use of Jumbas voice recognition software, prone to medical misidentifications and grammatical errors. This is unintentional and the practitioner does try to identify and correct these, but some could still be present. Please do not hesitate to contact practitioner for clarification. All questions answered to patients satisfaction. Patient verbalized understanding of diagnosis and treatments explained. To call sooner prior to next visit it any questions/concerns arise. 01/08/2025 BMI 37.0-37.9, adult (ICD-10 - Z68.37) Vonda [...] submit PA today. Follow-up in 4 weeks. 01/08/2025: Weight 207.1 pounds, BMI 37.4. Continues on Wegovy 0.25 mg weekly injections. Congratulated on effort. On review of body composition scan, skeletal muscle mass maintained at 46 pounds, fat mass decreased 1 pound, visceral adipose tissue went from 4.0-3.5. Discussed exercise, hydration, protein goals. Plan to increase to Wegovy 0.5 mg weekly injections. Follow-up in 4 weeks. #MASH: Continue Wegovy. Discussed exercise and diet goals. #Hypertension: BP [...] management. Consider group exercises. Consider hiring a net trainer. Regular exercise is stone to sustainable [...] counseling and psychiatry and Dr Camp at [facility]. We would like to cover regular topics [...] Dictation was accomplished with the use of Jumbas voice recognition software, prone to medical misidentifications and grammatical errors. This is unintentional and the practitioner does try to identify and correct these, but some could still be present. Please do not hesitate to contact practitioner for clarification. All questions answered to patients satisfaction. Patient verbalized understanding of diagnosis and treatments explained. To call sooner prior to next visit it any questions/concerns arise. 02/12/2025 BMI 37.0-37.9, adult (ICD-10 - Z68.37) Vonda is a 49-year-old female who presents for weight management f/u. Medical history, labs, allergies, medications, and social [...] #Obesity: 12/11/2024: Weight 208.1 pounds, BMI 37.4. 01/08/2025: Weight 207.1 pounds, BMI 37.4. Skeletal muscle mass maintained at 46 pounds, fat mass decreased 1 pound, visceral adipose tissue went from 4.0-3.5. 02/12/2025: Weight 207.3 pounds, BMI 37.5. Continues on Wegovy 0.5 mg weekly injections. Congratulated on effort. Skeletal muscle mass increased to 0.5 pounds, fat mass remains the same as 104 pounds. Discussed exercise and protein goals. Plan to increase to Wegovy 1 mg weekly injections. Follow-up in 6 weeks. #MASH: Continue Wegovy. Discussed exercise and diet goals, limiting alcohol, fried foods, processed foods. #Hypertension: BP well-controlled. 124/80. Continue losartan 50 mg daily. Continue to monitor. #Asthma: Well-controlled. Continue Xopenex. Total time spent today was 30 minutes of which greater than 50% was spent on coordinating and counseling Case discussed with collaborating physician Alvin Franco who reviewed the assessment and plan. Chart, medications, labs, vital signs reviewed. Dictation was accomplished with the use of Jumbas voice recognition software, prone to medical misidentifications and grammatical errors. This is unintentional and the practitioner does try to identify and correct these, but some could still be present. Please do not hesitate to contact practitioner for clarification. All questions answered to patients satisfaction. Patient verbalized understanding of diagnosis and treatments explained. To call sooner prior to next visit it any questions/concerns arise. 02/12/2025 Moderate obesity (ICD-10 - E66.9) Vonda is a 49-year-old female who presents for weight management f/u. Medical history, labs, allergies, medications, and social [...] #Obesity: 12/11/2024: Weight 208.1 pounds, BMI 37.4. 01/08/2025: Weight 207.1 pounds, BMI 37.4. Skeletal muscle mass maintained at 46 pounds, fat mass decreased 1 pound, visceral adipose tissue went from 4.0-3.5. 02/12/2025: Weight 207.3 pounds, BMI 37.5. Continues on Wegovy 0.5 mg weekly injections. Congratulated on effort. Skeletal muscle mass increased to 0.5 pounds, fat mass remains the same as 104 pounds. Discussed exercise and protein goals. Plan to increase to Wegovy 1 mg weekly injections. Follow-up in 6 weeks. #MASH: Continue Wegovy. Discussed exercise and diet goals, limiting alcohol, fried foods, processed foods. #Hypertension: BP well-controlled. 124/80. Continue losartan 50 mg daily. Continue to monitor. #Asthma: Well-controlled. Continue Xopenex. Total time spent today was 30 minutes of which greater than 50% was spent on coordinating and counseling Case discussed with collaborating physician Alvin Franco who reviewed the assessment and plan. Chart, medications, labs, vital signs reviewed. Dictation was accomplished with the use of Jumbas voice recognition software, prone to medical misidentifications and grammatical errors. This is unintentional and the practitioner does try to identify and correct these, but some could still be present. Please do not hesitate to contact practitioner for clarification. All questions answered to patients satisfaction. Patient verbalized understanding of diagnosis and treatments explained. To call sooner prior to next visit it any questions/concerns arise. 02/23/2025 Moderate obesity (ICD-10 - E66.9) Electronic Prior Authorization was requested for Zepbound 2.5 MG/0.5ML Solution Auto-injector. Provider can order medication once approval received. 01/08/2025 Moderate obesity (ICD-10 - E66.9) Vonda is [...] submit PA today. Follow-up in 4 weeks. 01/08/2025: Weight 207.1 pounds, BMI 37.4. Continues on Wegovy 0.25 mg weekly injections. Congratulated on effort. On review of body composition scan, skeletal muscle mass maintained at 46 pounds, fat mass decreased 1 pound, visceral adipose tissue went from 4.0-3.5. Discussed exercise, hydration, protein goals. Plan to increase to Wegovy 0.5 mg weekly injections. Follow-up in 4 weeks. #MASH: Continue Wegovy. Discussed exercise and diet goals. #Hypertension: BP [...] Consider using apps like 7 minute excercise, myBitybean llcpal, lose it, stick as needed for self-monitoring and weight management. Consider group exercises. Consider hiring a net trainer. Regular exercise is stone to sustainable [...] counseling and psychiatry and Dr Camp at [facility]. We would like to cover regular topics [...] Dictation was accomplished with the use of Dragon voice recognition software, prone to medical misidentifications and grammatical errors. This is unintentional and the practitioner does try to identify and correct these, but some could still be present. Please do not hesitate to contact practitioner for clarification. All questions answered to patients satisfaction. Patient verbalized understanding of diagnosis and treatments explained. To call sooner prior to next visit it any questions/concerns arise. 02/12/2025 Dietary counseling and surveillance (ICD-10 - Z71.3) Vonda is a 49-year-old female who presents for weight management f/u. Medical history, labs, allergies, medications, and social [...] #Obesity: 12/11/2024: Weight 208.1 pounds, BMI 37.4. 01/08/2025: Weight 207.1 pounds, BMI 37.4. Skeletal muscle mass maintained at 46 pounds, fat mass decreased 1 pound, visceral adipose tissue went from 4.0-3.5. 02/12/2025: Weight 207.3 pounds, BMI 37.5. Continues on Wegovy 0.5 mg weekly injections. Congratulated on effort. Skeletal muscle mass increased to 0.5 pounds, fat mass remains the same as 104 pounds. Discussed exercise and protein goals. Plan to increase to Wegovy 1 mg weekly injections. Follow-up in 6 weeks. #MASH: Continue Wegovy. Discussed exercise and diet goals, limiting alcohol, fried foods, processed foods. #Hypertension: BP well-controlled. 124/80. Continue losartan 50 mg daily. Continue to monitor. #Asthma: Well-controlled. Continue Xopenex. Total time spent today was 30 minutes of which greater than 50% was spent on coordinating and counseling Case discussed with collaborating physician Alvin Franco who reviewed the assessment and plan. Chart, medications, labs, vital signs reviewed. Dictation was accomplished with the use of Jumbas voice recognition software, prone to medical misidentifications [...] Consider using apps like 7 minute excercise, myBitybean llcpal, lose it, stick as needed for self-monitoring and weight management. Consider group exercises. Consider hiring a net trainer. Regular exercise is stone to sustainable [...] counseling and psychiatry and Dr Camp at [facility]. We would like to cover regular topics [...] Dictation was accomplished with the use of Jumbas voice recognition software, prone to medical misidentifications [...] Consider using apps like 7 minute excercise, myBitybean llcpal, lose it, stick as needed for self-monitoring and weight management. Consider group exercises. Consider hiring a net trainer. Regular exercise is stone to sustainable [...] counseling and psychiatry and Dr Camp at [facility]. We would like to cover regular topics [...] Dictation was accomplished with the use of Jumbas voice recognition software, prone to medical misidentifications and grammatical errors. This is unintentional and the practitioner does try to identify and correct these, but some could still be present. Please do not hesitate to contact practitioner for clarification. All questions answered to patients satisfaction. Patient verbalized understanding of diagnosis and treatments explained. To call sooner prior to next visit it any questions/concerns arise. 02/12/2025 Essential hypertension (ICD-10 - I10) Vonda is a 49-year-old female who presents for weight management f/u. Medical history, labs, allergies, medications, and social [...] #Obesity: 12/11/2024: Weight 208.1 pounds, BMI 37.4. 01/08/2025: Weight 207.1 pounds, BMI 37.4. Skeletal muscle mass maintained at 46 pounds, fat mass decreased 1 pound, visceral adipose tissue went from 4.0-3.5. 02/12/2025: Weight 207.3 pounds, BMI 37.5. Continues on Wegovy 0.5 mg weekly injections. Congratulated on effort. Skeletal muscle mass increased to 0.5 pounds, fat mass remains the same as 104 pounds. Discussed exercise and protein goals. Plan to increase to Wegovy 1 mg weekly injections. Follow-up in 6 weeks. #MASH: Continue Wegovy. Discussed exercise and diet goals, limiting alcohol, fried foods, processed foods. #Hypertension: BP well-controlled. 124/80. Continue losartan 50 mg daily. Continue to monitor. #Asthma: Well-controlled. Continue Xopenex. Total time spent today was 30 minutes of which greater than 50% was spent on coordinating and counseling Case discussed with collaborating physician Avlin Franco who reviewed the assessment and plan. Chart, medications, labs, vital signs reviewed. Dictation was accomplished with the use of Jumbas voice recognition software, prone to medical misidentifications and grammatical errors. This is unintentional and the practitioner does try to identify and correct these, but some could still be present. Please do not hesitate to contact practitioner for clarification. All questions answered to patients satisfaction. Patient verbalized understanding of diagnosis and treatments explained. To call sooner prior to next visit it any questions/concerns arise. 01/08/2025 Dietary counseling and surveillance (ICD-10 - Z71.3) [...] submit PA today. Follow-up in 4 weeks. 01/08/2025: Weight 207.1 pounds, BMI 37.4. Continues on Wegovy 0.25 mg weekly injections. Congratulated on effort. On review of body composition scan, skeletal muscle mass maintained at 46 pounds, fat mass decreased 1 pound, visceral adipose tissue went from 4.0-3.5. Discussed exercise, hydration, protein goals. Plan to increase to Wegovy 0.5 mg weekly injections. Follow-up in 4 weeks. #MASH: Continue Wegovy. Discussed exercise and diet goals. #Hypertension: BP [...] Consider using apps like 7 minute excercise, myfit7Summitspal, lose it, stick as needed for self-monitoring and weight management. Consider group exercises. Consider hiring a net trainer. Regular exercise is stone to sustainable [...] counseling and psychiatry and Dr Camp at [facility]. We would like to cover regular topics [...] Dictation was accomplished with the use of Jumbas voice recognition software, prone to medical misidentifications and grammatical errors. This is unintentional and the practitioner does try to identify and correct these, but some could still be present. Please do not hesitate to contact practitioner for clarification. All questions answered to patients satisfaction. Patient verbalized understanding of diagnosis and treatments explained. To call sooner prior to next visit it any questions/concerns arise. 01/08/2025 Essential hypertension (ICD-10 - I10) Vonda is [...] submit PA today. Follow-up in 4 weeks. 01/08/2025: Weight 207.1 pounds, BMI 37.4. Continues on Wegovy 0.25 mg weekly injections. Congratulated on effort. On review of body composition scan, skeletal muscle mass maintained at 46 pounds, fat mass decreased 1 pound, visceral adipose tissue went from 4.0-3.5. Discussed exercise, hydration, protein goals. Plan to increase to Wegovy 0.5 mg weekly injections. Follow-up in 4 weeks. #MASH: Continue Wegovy. Discussed exercise and diet goals. #Hypertension: BP [...] Consider using apps like 7 minute excercise, Onstream Mediapal, lose it, stick as needed for self-monitoring and weight management. Consider group exercises. Consider hiring a net trainer. Regular exercise is stone to sustainable [...] counseling and psychiatry and Dr Camp at [facility]. We would like to cover regular topics [...] Dictation was accomplished with the use of Jumbas voice recognition software, prone to medical misidentifications [...] management. Consider group exercises. Consider hiring a net trainer. Regular exercise is stone to sustainable [...] counseling and psychiatry and Dr Camp at [facility]. We would like to cover regular topics [...] Dictation was accomplished with the use of Jumbas voice recognition software, prone to medical misidentifications and grammatical errors. This is unintentional and the practitioner does try to identify and correct these, but some could still be present. Please do not hesitate to contact practitioner for clarification. All questions answered to patients satisfaction. Patient verbalized understanding of diagnosis and treatments explained. To call sooner prior to next visit it any questions/concerns arise. 02/12/2025 Fatty liver disease, nonalcoholic (ICD-10 - K76.0) Vonda is a 49-year-old female who presents for weight management f/u. Medical history, labs, allergies, medications, and social [...] #Obesity: 12/11/2024: Weight 208.1 pounds, BMI 37.4. 01/08/2025: Weight 207.1 pounds, BMI 37.4. Skeletal muscle mass maintained at 46 pounds, fat mass decreased 1 pound, visceral adipose tissue went from 4.0-3.5. 02/12/2025: Weight 207.3 pounds, BMI 37.5. Continues on Wegovy 0.5 mg weekly injections. Congratulated on effort. Skeletal muscle mass increased to 0.5 pounds, fat mass remains the same as 104 pounds. Discussed exercise and protein goals. Plan to increase to Wegovy 1 mg weekly injections. Follow-up in 6 weeks. #MASH: Continue Wegovy. Discussed exercise and diet goals, limiting alcohol, fried foods, processed foods. #Hypertension: BP well-controlled. 124/80. Continue losartan 50 mg daily. Continue to monitor. #Asthma: Well-controlled. Continue Xopenex. Total time spent today was 30 minutes of which greater than 50% was spent on coordinating and counseling Case discussed with collaborating physician Alvin Franco who reviewed the assessment and plan. Chart, medications, labs, vital signs reviewed. Dictation was accomplished with the use of Jumbas voice recognition software, prone to medical misidentifications and grammatical errors. This is unintentional and the practitioner does try to identify and correct these, but some could still be present. Please do not hesitate to contact practitioner for clarification. All questions answered to patients satisfaction. Patient verbalized understanding of diagnosis and treatments explained. To call sooner prior to next visit it any questions/concerns arise. 01/08/2025 Fatty liver disease, nonalcoholic (ICD-10 - K76.0) [...] submit PA today. Follow-up in 4 weeks. 01/08/2025: Weight 207.1 pounds, BMI 37.4. Continues on Wegovy 0.25 mg weekly injections. Congratulated on effort. On review of body composition scan, skeletal muscle mass maintained at 46 pounds, fat mass decreased 1 pound, visceral adipose tissue went from 4.0-3.5. Discussed exercise, hydration, protein goals. Plan to increase to Wegovy 0.5 mg weekly injections. Follow-up in 4 weeks. #MASH: Continue Wegovy. Discussed exercise and diet goals. #Hypertension: BP [...] Consider using apps like 7 minute excercise, Onstream Mediapal, lose it, stick as needed for self-monitoring and weight management. Consider group exercises. Consider hiring a net trainer. Regular exercise is stone to sustainable [...] counseling and psychiatry and Dr Camp at [facility]. We would like to cover regular topics [...] Dictation was accomplished with the use of Jumbas voice recognition software, prone to medical misidentifications and grammatical errors. This is unintentional and the practitioner does try to identify and correct these, but some could still be present. Please do not hesitate to contact practitioner for clarification. All questions answered to patients satisfaction. Patient verbalized understanding of diagnosis and treatments explained. To call sooner prior to next visit it any questions/concerns arise. 02/12/2025 Mild intermittent asthma without complication (ICD-10 - J45.20) Vonda is a 49-year-old female who presents for weight management f/u. Medical history, labs, allergies, medications, and social [...] #Obesity: 12/11/2024: Weight 208.1 pounds, BMI 37.4. 01/08/2025: Weight 207.1 pounds, BMI 37.4. Skeletal muscle mass maintained at 46 pounds, fat mass decreased 1 pound, visceral adipose tissue went from 4.0-3.5. 02/12/2025: Weight 207.3 pounds, BMI 37.5. Continues on Wegovy 0.5 mg weekly injections. Congratulated on effort. Skeletal muscle mass increased to 0.5 pounds, fat mass remains the same as 104 pounds. Discussed exercise and protein goals. Plan to increase to Wegovy 1 mg weekly injections. Follow-up in 6 weeks. #MASH: Continue Wegovy. Discussed exercise and diet goals, limiting alcohol, fried foods, processed foods. #Hypertension: BP well-controlled. 124/80. Continue losartan 50 mg daily. Continue to monitor. #Asthma: Well-controlled. Continue Xopenex. Total time spent today was 30 minutes of which greater than 50% was spent on coordinating and counseling Case discussed with collaborating physician Alvin Franco who reviewed the assessment and plan. Chart, medications, labs, vital signs reviewed. Dictation was accomplished with the use of Jumbas voice recognition software, prone to medical misidentifications [...] Consider using apps like 7 minute excercise, myBitybean llcpal, lose it, stick as needed for self-monitoring and weight management. Consider group exercises. Consider hiring a net trainer. Regular exercise is stone to sustainable [...] counseling and psychiatry and Dr Camp at [facility]. We would like to cover regular topics [...] Dictation was accomplished with the use of Jumbas voice recognition software, prone to medical misidentifications [...] management. Consider group exercises. Consider hiring a net trainer. Regular exercise is stone to sustainable [...] counseling and psychiatry and Dr Camp at [facility]. We would like to cover regular topics [...] Dictation was accomplished with the use of Jumbas voice recognition software, prone to medical misidentifications and grammatical errors. This is unintentional and the practitioner does try to identify and correct these, but some could still be present. Please do not hesitate to contact practitioner for clarification. All questions answered to patients satisfaction. Patient verbalized understanding of diagnosis and treatments explained. To call sooner prior to next visit it any questions/concerns arise. 01/08/2025 Mild intermittent asthma without complication (ICD-10 - [...] submit PA today. Follow-up in 4 weeks. 01/08/2025: Weight 207.1 pounds, BMI 37.4. Continues on Wegovy 0.25 mg weekly injections. Congratulated on effort. On review of body composition scan, skeletal muscle mass maintained at 46 pounds, fat mass decreased 1 pound, visceral adipose tissue went from 4.0-3.5. Discussed exercise, hydration, protein goals. Plan to increase to Wegovy 0.5 mg weekly injections. Follow-up in 4 weeks. #MASH: Continue Wegovy. Discussed exercise and diet goals. #Hypertension: BP [...] Consider using apps like 7 minute excercise, myfit7Summitspal, lose it, stick as needed for self-monitoring and weight management. Consider group exercises. Consider hiring a net trainer. Regular exercise is stone to sustainable [...] counseling and psychiatry and Dr Camp at [facility]. We would like to cover regular topics [...] Dictation was accomplished with the use of Jumbas voice recognition software, prone to medical misidentifications and grammatical errors. This is unintentional and the practitioner does try to identify and correct these, but some could still be present. Please do not hesitate to contact practitioner for clarification. All questions answered to patients satisfaction. Patient verbalized understanding of diagnosis and treatments explained. To call sooner prior to next visit it any questions/concerns arise. 02/12/2025 Encounter for examination of blood pressure without abnormal findings (ICD-10 - Z01.30) Vonda is a 49-year-old female who presents for weight management f/u. Medical history, labs, allergies, medications, and social [...] #Obesity: 12/11/2024: Weight 208.1 pounds, BMI 37.4. 01/08/2025: Weight 207.1 pounds, BMI 37.4. Skeletal muscle mass maintained at 46 pounds, fat mass decreased 1 pound, visceral adipose tissue went from 4.0-3.5. 02/12/2025: Weight 207.3 pounds, BMI 37.5. Continues on Wegovy 0.5 mg weekly injections. Congratulated on effort. Skeletal muscle mass increased to 0.5 pounds, fat mass remains the same as 104 pounds. Discussed exercise and protein goals. Plan to increase to Wegovy 1 mg weekly injections. Follow-up in 6 weeks. #MASH: Continue Wegovy. Discussed exercise and diet goals, limiting alcohol, fried foods, processed foods. #Hypertension: BP well-controlled. 124/80. Continue losartan 50 mg daily. Continue to monitor. #Asthma: Well-controlled. Continue Xopenex. Total time spent today was 30 minutes of which greater than 50% was spent on coordinating and counseling Case discussed with collaborating physician Alvin Franco who reviewed the assessment and plan. Chart, medications, labs, vital signs reviewed. Dictation was accomplished with the use of Jumbas voice recognition software, prone to medical misidentifications and grammatical errors. This is unintentional and the practitioner does try to identify and correct these, but some could still be present. Please do not hesitate to contact practitioner for clarification. All questions answered to patients satisfaction. Patient verbalized understanding of diagnosis and treatments explained. To call sooner prior to next visit it any questions/concerns arise. 01/08/2025 Encounter for examination of blood pressure without [...] submit PA today. Follow-up in 4 weeks. 01/08/2025: Weight 207.1 pounds, BMI 37.4. Continues on Wegovy 0.25 mg weekly injections. Congratulated on effort. On review of body composition scan, skeletal muscle mass maintained at 46 pounds, fat mass decreased 1 pound, visceral adipose tissue went from 4.0-3.5. Discussed exercise, hydration, protein goals. Plan to increase to Wegovy 0.5 mg weekly injections. Follow-up in 4 weeks. #MASH: Continue Wegovy. Discussed exercise and diet goals. #Hypertension: BP [...] Consider using apps like 7 minute excercise, Onstream Mediapal, lose it, stick as needed for self-monitoring and weight management. Consider group exercises. Consider hiring a net trainer. Regular exercise is stone to sustainable [...] counseling and psychiatry and Dr Camp at [facility]. We would like to cover regular topics [...] Dictation was accomplished with the use of Jumbas voice recognition software, prone to medical misidentifications [...] Details Provider Name:BANG ELLISON, 09:00:00 AM, [address], [place], [address], Insurance Providers Payer Name Payer Address Payer Phone Subscriber Number Group Number Insured Name Patient Relationship to Insured Coverage Start Date Coverage End Date [facility] [address] [place] [address] [id number] SULLIVANVONDA BOOTH Self - patient is the insured 2 Medical (General) History Medical History History ICD Code high blood pressure asthma kidney stones anxiety seasonal allergies Hospitalization History Reason Date(Month/Year) Vaginal- fibroids kidney stones
--- OUTSIDE RECORDS SUMMARY | 2025-03-19 20:36 | XMS_ITS | Encounter Summary ---
Demographics Address [address] [place] [address] Mobile Phone Home Phone Email Address Preferred Language Azeri Marital Status Single Taoist Affiliation Unknown Race White Additional Race(s) Other Race Ethnic Group or Author Organization [facility] Address [address] [place] [address] Phone Care Team Providers Care Aircraft Rigging And Controls Mechanic Name Role Phone Jane Dao NP Primary Care Provider [phone] Encounter Details Date Type Department Care Team (Late st Contact Info) Description 08/04/2024 Procedure Pass [facility], Ct Scan - [address] [address] Social History Tobacco Use Types Packs/Day Years [...] 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 Not on file Not on file documented as of this encounter Plan of Treatment Upcoming Encounters Date Type Department Care Team (Late st Contact Info) Description 04/17/2025 2:15 PM EST Office Visit DEPARTMENT OF UROLOGY [address] [place] [address] [address] [place] [address] Paulie Lockwood MD [address] [place] [address] [email or web address] documented as of this encounter Visit Diagnoses Not on filedocumented in this encounter Care Teams Aircraft Rigging And Controls Mechanic Relationship Specialty Start Date End Date Jane Dao NP [address] [address] [email or web address] PCP - General Nurse Practitioner 07/10/24 documented as of this encounter Additional Source Comments The information contained in this document represents components of the legal health record. It is not the complete legal health record.[facility]
--- OUTSIDE RECORDS SUMMARY | 2025-03-19 20:36 | XMS_ITS | Clinical Summary ---
Demographics Address [address] [place] [address] Mobile Phone Home Phone Email Address Preferred Language Lao Marital Status Single Hinduism Affiliation Unknown Race White Additional Race(s) Other Race Ethnic Group or Author Organization [facility] Address [address] [place] [address] Phone Care Team Providers Care Web Merchandiser Name Role Phone Jane Dao NP Primary Care Provider [phone] Allergies Active Allergy Reactions Criticality Noted Date Comments [place] 11/01/2023 Other Reaction(s): Unknown Augmentin (Amoxicillin-Pot Clavulanate) [...] Encounters Date Type Department Care Team Description 02/01/2025 7:31 AM EDT - 02/01/2025 11:59 PM EDT Hospital Encounter [facility], Nuclear Medicine - [address] [address] Desmond Acosta MD Discharge Disposition: Home or Self Care from Last 3 Months Immunizations Immunization Administration [...] 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 on file Not [...] PM EST Office Visit DEPARTMENT OF UROLOGY [address] [facility], [address] [place] [address] Paulie Lockwood MD [address] [place] [phone] [email or web address] Health Maintenance Due Date Last Done Comments [...] 12/17/2020, 11/28/2020 Adult Td,Tdap Booster 07/25/2033 07/26/2023 RSV VACCINE (1 - 1-dose 75+ series) 01/07/2048 SMOKING STATUS SCREENING (On ce After 26 [...] Procedure Name Priority Date/Time Associated Diagnosis Comments NM RENAL SCAN Routine 02/01/2025 9:22 AM EDT Acute renal failure, unspecified acute renal failure type BASIC METABOLIC PANEL (BMP) STAT 05/16/2021 2:12 PM EST HM MAMMOGRAPHY Routine 11/07/2020 from Last 3 Months or Most Recently Relevant to Health Maintenance Results * NM Renal Scan (02/01/2025 9:22 AM EDT) Anatomical Region Laterality Modality Abdomen, Kidney Nuclear Medicine 02/01/2025 9:50 AM EDT Impressions 02/02/2025 10:09 AM EDT 1. Split renal function: Left 48.9%, Right 51.1% 2. No scintigraphic evidence of a high grade/urodynamically significant obstruction for either kidney. ATTESTATION: Olivia Dawkins as teaching physician, have reviewed the images for this case and if necessary edited the report originally created by Lizet Cao. Narrative 02/02/2025 10:09 AM EDT NM RENAL SCAN Radionuclide Renal scan: COMPARISON: None available. TECHNIQUE: 11.0 mCi technetium 99m MAG3 was injected. Imaging of the kidneys was performed for 30 minutes. FINDINGS: The split function is 48.9% on the left and 51.1% on the right. Both kidneys demonstrate prompt cortical uptake and excretion. There is near complete spontaneous drainage without significant residual for either kidney. Procedure Note Olivia Faith MD - 02/02/2025 NM RENAL SCAN Radionuclide Renal scan: COMPARISON: None available. TECHNIQUE: 11.0 mCi technetium 99m MAG3 was injected. Imaging of the kidneys wasperformed for 30 minutes. FINDINGS: The split function is 48.9% on the left and 51.1% on the right. Both kidneys demonstrate prompt cortical uptake and excretion. There isnear complete spontaneous drainage without significant residual for eitherkidney. IMPRESSION: 1. Split renal function: Left 48.9%, Right 51.1% 2. No scintigraphic evidence of a high grade/urodynamically significantobstruction for either kidney. ATTESTATION: Olivia Dawkins as teaching physician, have reviewed theimages for this case and if necessary edited the report originally createdby Lizet Cao. us Desmond Acosta MD IMG NM ABDOMEN Final Res ult * (ABNORMAL) Basic metabolic panel (05/16/2021 2:12 PM EST) SODIUM 140 133 - 146 mmol/L [facility] CHLORIDE 104 96 - 108 mmol/L [facility] POTASSIUM 3.9 3.3 - 5.1 mmol/L [facility] Comment:Specimen slightly he molyzed, result may be falsely elevated. CO2 23 21 - 35 mmol/L [facility] BUN 15 6 - 19 mg/dL [facility] CREATININE 0.80 0.5 - 1.5 mg/dL [facility] GLUCOSE 128(H) 70 - 99 mg/dL [facility] CALCIUM 9.6 8.4 - 10.3 mg/dL [facility] EGFR 91 >59 mL/min/1.7 3m2 [facility] Comment:Estimated glomerular filtration rate calculated using the CKD-EPI refit equation. ANION GAP 17 10 - 20 mmol/L [facility] Blood 05/16/2021 2:12 PM EST 05/16/2021 2:[address] PA-C LAB BLOOD BKR ORDERABLES Erin l Result [facility] [address] [place] [address] * MAMMOGRAPHY FOR RESULT ENTRY ONLY (11/07/2020) us Ynes Phipps NP HEALTH MAINTENANCE Final Result from Last 3 Months or Most Recently Relevant to Health Maintenance Insurance [facility] * Guarantor: Patti Drake Account Type Relation to Patient Date of Phone Billing Address Personal/Family Self [address] [place] [address] [facility] [place] [address] [place] [address] Care Teams Web Merchandiser Relationship Specialty Start Date End Date Jane Dao NP [address] [place] [address] [email or web address] PCP - General Nurse Practitioner 07/10/24 Additional Source Comments The information contained in this document represents components of the legal health record. It is not the complete legal health record.[facility]
--- OUTSIDE RECORDS SUMMARY | 2025-03-19 20:37 | XMS_ITS | Encounter Summary ---
Author Organization [facility] Address [address] [place] [address] [address] [place] [address] Phone Care Team Providers Care Sensitometrist Name Role Phone Ynes Phipps WRAPAROUND FACILITATOR Primary Care Provider [phone] Ynes Phipps WRAPAROUND FACILITATOR Primary Care Provider [phone] Jane Dao WRAPAROUND FACILITATOR Primary Care Provider Reason for Referral * Consultation (Elective) - Closed Specialty Diagnoses / Procedures Referred By Evangelist maurice Referred To Contact Diagnoses Aneurysm of artery of neck System, Provider Not In, PhD Partners [employer] [address] Referral ID Status Reason Start Date Expiration Date Visits Re quested Visits Authorized [id number] Closed 07/17/2015 07/16/2016 1 1 Encounter Details Date Type Department Care Team (Latest Contact Info) Description 07/17/2015 Transcribe Orders [facility] Cardiovascular Medicine [address] [place] [address], [address], [address] [place] [address] System, Provider Not In, PhD Partners [employer] Corporationjefe [address] [place] [phone] Aneurysm of artery of neck (Primary Dx) [...] EST Office Visit DEPARTMENT OF UROLOGY [address] [facility], [address] [place] [address] Paulie Lockwood MD [address] [place] [address] [email or web address] Scheduled Referrals Name Type Priority Associated Diagnoses Order Schedule Ambulatory referral to [facility] Vascular/Stroke Outpatient Referral [...] documented as of this encounter Care Teams Sensitometrist Relationship Specialty Start Date End Date Ynes Phipps NP [address] [place] [address] PCP - General 07/17/15 11/10/17 Ynes Phipps NP [address] [place] [address] PCP - General Geriatric Psychiatry 11/11/17 07/09/24 Jane Dao NP [address] [place] [phone] [email or web address] PCP - General Nurse Practitioner 07/10/24 documented as of this encounter Additional Source Comments The information contained in this document represents components of the legal health record. It is not the complete legal health record.[facility]
--- OUTSIDE RECORDS SUMMARY | 2025-03-19 20:37 | XMS_ITS | Encounter Summary ---
Author Organization [facility] Address [address] [place] [address] Care Team Providers Care Audit Partner Name Role Phone Jane Dao MD Primary Care Provider [phone] Encounter Details Date Type Department Care Team (Late st Contact Info) Description 11/30/2023 Scanned Document [facility] Surgical Oncology [place] [address] [facility] [address] [place] [id number] Hope Peralta MD [address] 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
--- OUTSIDE RECORDS SUMMARY | 2025-03-19 20:37 | XMS_ITS | Encounter Summary ---
Author Organization [facility] Address [address] [place] [address] [place] [address] Phone Care Team Providers Care Machine Hose Cutter Name Role Phone Ynes Phipps OFFICER LIEUTENANT Primary Care Provider [phone] Jane Dao OFFICER LIEUTENANT Primary Care Provider [phone] Encounter Details Date Type Department Care Team (Late st Contact Info) Description 10/17/2019 Transcribe Orders Virtual Department [address] [place] [address] Clara Moy MD [address] [place] [address] [email or web address] Cough (Primary Dx) Social History Tobacco Use [...] EST Office Visit DEPARTMENT OF UROLOGY [address] [facility], [address] [place] [address] Paulie Lockwood MD [address] [place] [address] [email or web address] documented as of this encounter Results * [...] documented as of this encounter Care Teams Machine Hose Cutter Relationship Specialty Start Date End Date Ynes Phipps NP [address] [place] [address] PCP - General Geriatric Psychiatry 11/11/17 07/09/24 Jane Dao NP [address] [address] [email or web address] PCP - General Nurse Practitioner 07/10/24 documented as of this encounter Additional Source Comments The information contained in this document represents components of the legal health record. It is not the complete legal health record.[facility]
--- OUTSIDE RECORDS SUMMARY | 2025-03-19 20:37 | XMS_ITS | Patient Health Record ---
Author Organization Gómez Liu MD Address [address] [place] [address] [phone] Care Team Providers Care Lei Seller Name Role Phone Jane Dao Primary Care Provider [phone] Allergies Allergen (clinical drug ingredient) Drug/Non Drug [...] Unknown Allergy Act leti almond allergenic extract [place] (Diagnostic) Unknown Drug Allergy Active Shellfish (FN) Shellfish-derived Products anaphylaxis Drug Allergy Active Yeast-related Products Unknown Drug Allergy Active Chickpea Unknown Allergy Active Results Component Value Reference Range Notes Urinalysis, Complete-[id number] Reviewed date:06/25/2024 11:07:14 AM Interpretation: Performing Lab:[facility], [address] [facility] [address], [place], Phone - [phone], Director - Néstor Notes/Report: Clinical Information:SRC: Clinical Information:SRC:UC Specific [place] 1.018 1.005-1.030 pH 5.5 5.0-7.5 Urine-Color [place] Yellow Appearance Clear Clear WBC Esterase 2+ [...] Bacteria None seen None seen/Few Urine Culture, Routine-[id number] 7 Reviewed date:06/25/2024 11:07:14 AM Interpretation: Performing Lab:[facility] [place], Phone - [phone], Director - MDJodry Notes/Report: Clinical Information:SRC:UC Clinical Information:SRC:UC Urine Culture, Routine Final report Result 1 Culture shows less than 10,000 colony forming units of bacteria per milliliter of urine. This colony count is not generally considered to be clinically significant. PTH, Intact-[id number] Reviewed date:06/25/2024 11:07:14 AM Interpretation: Performing Lab:[facility] [place], Phone - [phone], Director - [facility] Notes/Report: Clinical Information:SRC:UC PTH, Intact 22 15-65 pg/mL Comp. Metabolic Panel ([id number] Reviewed date:06/25/2024 11:07:14 AM Interpretation: Performing Lab:[facility] [address], Phone - [phone], Director - MDJodry Notes/Report: Clinical Information:SRC:UC Glucose 77 70-99 mg/dL [...] date:09/28/2024 02:43:22 PM Interpretation: Performing Lab: Notes/Report: CT Abdomen & Pelvis Reviewed date:06/25/2024 11:07:14 [...] and Electronically Signed by: FRANKIE ROBBINS MD Reason For Referral Reason Persistent stones, w ith fluctuating PTH levels appt? Diagnosis 1 Hypoparathyroidism, unspecified (E20.9) Referral Organization [facility] Referring Provider First Name Jane Referring Provider Last Name Feliberto Referring Provider Speciality Nurse Prac titioner Referred Provider [facility] Referred Provider Specialty Urology General Notes [facility] 08[facility]34:35 AM >faxed, [facility] 06/22/2024 10:59:28 AM >Completed [facility] Referral form, [facility] 06/30/2024 09:05:25 AM >Copied from 06/29/24 TE. Fairchild called from [facility] stated that patient needs to see Endocrine specialist before being referred to an Endocrine Surgery. Jane Dao 06/29/2024 10:44:29 AM EDT > Can we please update pt on the above and see if she would like to see an Endocrine specialist through [facility] as she has had many providers in that system, [facility]/29/[facility]24 11:37:25 AM EDT > patient stated that she was looking to give us a call as [facility] [place] a kidney stone program called ( Kidney stone program) and gave us the number of head Provider phone [phone] Desmond Acosta. [facility],, Jane aDo 06/29/2024 12:52:40 PM EDT > Can we please refer pt to this provider for recurrent kidney stones, [facility] 06/30/2024 09:46:45 AM >Updated and faxed, booked 07/26/24 Referral Priority Routine Diagnosis 1 Hypertensive chronic kidney disease with stage 1 through stage 4 chronic kidney disease, or unspecified chronic kidney disease (I12.9) Referral Organization [facility] Referring Provider First Name Jane Referring Provider Last Name Feliberto Referring Provider Speciality Nurse Jhoana vazquez Referred Provider Loreto Ramirez Referred Provider Specialty Cardiology General Notes [facility] Espinosa 03/05 12:59:25 PM >faxed Referral Priority Routine Medications Medication SIG (Take, Route, Frequency, Duration) Notes Start Date End Date Status Dilaudid 2 MG 1 tablet as needed Orally every 6 hrs Active Tamsulosin HCl 0.4 MG 1 capsule Oral prn with kidney stone; Duration: 14 days Active Triamcinolone Acetonide 0.025 % 1 application to affected area Externally Once a day; Duration: 7 days 10/18/2023 Active Xopenex HFA 45 MCG/ACT 1 puff Inhalation every 6 hrs As needed 06/25/2023 Active Xyzal Allergy 24HR 5 MG 1 tablet in the evening Orally Once a day; Duration: 30 day(s) Active Losartan Potassium 50 MG TAKE 1 TABLET B Y MOUTH DAILY; Duration: 90 Active Propranolol HCl 10 MG TAKE 1 TABLET BY M OUT THREE TIMES DAILY; Duration: 90 Active Ativan 0.5 MG 1 tablet as needed f or flying Orally Once a day; Duration: 7 days 12/22/2023 Active Ecftawehk-Fvhdkkmdybwj-Dwq gesterone 0.125mg - 0.25mg - 75mg 1 gm applied daily to inner thighs topical daily; Duration: 30 days 05/02/2025 Active Immunizations Vaccine Route Administration Date Status Comme nts *Tdap IM Intramuscular 07/26/2023 Administered BUPNB-17-Glmjna Vaccine Unknown 11/28/2020 Administered YAWLG-36-Rkmkax Vaccine Unknown 12/17/2020 Administered Influenza, seasonal, injectable, 6-35 months Unknown 01/23/2015 Administered Social History Alcohol Screen (Audit-C) Question [...] Risk Notes Problem Non-toxic single thyroid nodule (066525596) Nontoxic single thyroid nodule (E04.1) Active confirmed Problem Hypoparathyroidism (22981526) Hypoparathyroidis m, unspecified (E20.9) Active confirmed Problem 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) Active confirmed Problem Vitamin D deficiency (47484415) Vitamin D deficiency, unspecified (E55.9) Active confirmed Problem Mixed hyperlipidemia (732687238) Mixed hyperlipidemia (E78.2) Active confirmed Problem Generalized anxiety disorder (02785087) Generalized anxiety disorder (F41.1) Active confirmed Problem Acute stress reaction (07866576) Acute stress reaction (F43.0) Active confirmed Problem Episodic tension-type headache (956384599) Episodic tension-type headache, not intractable (G44.219) Active confirmed Problem Disorder of sleep-wake cycle (disorder) (974933981) 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) Active confirmed Problem Chronic kidney disease due to hypertension (174169416208236) Hypertensive chronic kidney disease with stage 1 through stage 4 chronic kidney disease, or unspecified chronic kidney disease (I12.9) Active confirmed Problem Atrial premature depolarization (697172023) Atrial premature depolarization (I49.1) Active confirmed Problem Ventricular premature depolarization (529102349) Ventricular premature depolarization (I49.3) Active confirmed Problem Aneurysm of carotid artery (118944090) Aneurysm of carotid artery (I72.0) Active confirmed Problem Allergic rhinitis caused by pollen (disorder) (10032891) Allergic rhinitis due to pollen (J30.1) Active confirmed Problem Mild intermittent asthma (914738089) Mild intermittent asthma, uncomplicated (J45.20) Active confirmed Problem Benign neoplasm of stomach (07365069) Polyp of stomach and duodenum (K31.7) Active confirmed Problem Cholesterolosis of gallbladder (93173476) Cholesterolosis of gallbladder (K82.4) Active confirmed Problem Atopic dermatitis (05057623) Atopic dermatitis, unspecified (L20.9) Active confirmed Problem Sacrococcygeal disorders, not elsewhere classified (M53.3) Active confirmed Problem Fibromyalgia (150849213) Fibromyalgia (M79.7) Active confirmed Problem Chronic kidney disease stage 2 (230754219) Chronic kidney disease, stage 2 (mild) (N18.2) Active confirmed Problem Calculus of kidney (39706067) Calculus of kidney (N20.0) Active confirmed Problem SI - Stress incontinence (27202149) Stress incontinence (female) (male) (N39.3) Active confirmed Problem Menopause (627784129) Menopausal and female climacteric states (N95.1) Active confirmed Problem Cystic disease of liver (36954968) Cystic disease of liver (Q44.6) Active confirmed Problem Paresthesia (finding) (85399196) Paresthesia of skin (R20.2) Active confirmed Problem Attention deficit hyperactivity disorder, predominantly inattentive type (disorder) (16358444) Attention and concentration deficit (R41.840) Active confirmed Problem Residual cognitive deficit as late effect of cerebrovascular accident (658559383) 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 Problem Body mass index 30.00 to 34.99 (400285330871089) Body mass index [BMI] 31.0-31.9, adult (Z68.31) Active confirmed Problem Body mass index 35.00 to 39.99 (099960534944172) Body mass index [BMI] 36.0-36.9, adult (Z68.36) Active confirmed Problem Body mass index 35.00 to 39.99 (349404318598748) Body mass index [BMI] 37.0-37.9, adult (Z68.37) Active confirmed Problem Transformed migraine (disorder) (043253846) Chronic migraine with aura, not intractable, without [...] Location Date Provider Diagnosis G[facility]mez Liu MD [address] [id number] 09/25/2024 Jane Dao Encounter for genera l [...] other viral diseases Z11.59 G[facility]mez Liu MD [address] [id number] 06/21/2024 Jane Dao Dysuria R30.0 ; Calc ulus of kidney N20.0 and Hypoparathyroidism, unspecified E20.9 G[facility]mez Liu MD [address] [id number] 03/13/2025 Jane Dao Hypertensive chronic kidney disease with stage 1 through stage 4 chronic kidney disease, or unspecified chronic kidney disease I12.9 G[facility]mez Liu MD [address] [id number] 02/26/2025 Jane Liu MD [address] [id number] 02/21/2025 Jane Liu MD [address] [id number] 02/20/2025 Jane Liu MD [address] [id number] 01/02/2025 Jane Dao Menopausal and femal e climacteric states N95.1 G[facility]mez Liu MD [address] [place] [address] [id number] 10/18/2024 Jane Dao Body mass index [BMI ] 37.0-37.9, adult Z68.37 G[facility]mez Liu MD [address] [id number] 10/02/2024 Jane Feliberto Liu MD [address] [id number] 09/28/2024 Jane Dao [facility] [address] [place] [address] [id number] 09/25/2024 Jane Dao [facility] [address] [place] [address] [id number] 06/29/2024 Jane Dao [facility] [address] [id number] 05/03/2024 Jane Dao [facility] [address] [place] [address] [id number] 04/10/2024 Jane Dao [facility] [address] [id number] 03/13/2025 Jane Dao [facility] [address] [place] [address] [id number] 03/13/2025 Jane Liu MD [address] [id number] 02/23/2025 Jane Feliberto [facility] [address] [place] [address] [id number] 01/19/2025 Jane Dao [facility] [address] [place] [address] [id number] 01/05/2025 Jane Dao Hypertensive chronic kidney disease with stage 1 through stage 4 chronic kidney disease, or unspecified chronic kidney disease I12.9 [facility] [address] [place] [address] [id number] 12/29/2024 Jane Dao Menopausal and femal e climacteric states N95.1 [facility] [address] [place] [address] [id number] 12/11/2024 Jane [facility] [address] [place] [address] [id number] 12/11/2024 Jane Feliberto Liu MD [address] [id number] 10/20/2024 Jane Dao Hypertensive chronic kidney disease with stage 1 through stage 4 chronic kidney disease, or unspecified chronic kidney disease I12.9 G[facility]mez Liu MD [address] [id number] 10/02/2024 Jane Dao Chronic migraine wit h aura, not intractable, without status migrainosus G43.E09 Gómez Liu MD [address] [id number] 10/02/2024 Jane Dao Chronic migraine wit h aura, not intractable, without status migrainosus G43.E09 G[facility]mez Liu MD [address] [id number] 06/23/2024 Jane Dao Dysuria R30.0 G[facility]mez Liu MD [address] [id number] 06/13/2024 Jane Dao Hypertensive chronic kidney disease with stage 1 through stage 4 chronic kidney disease, or unspecified chronic kidney disease I12.9 G[facility]mez Liu MD [address] [id number] 05/02/2024 Jane Martinezbo Liu MD [address] [id number] 03/24/2024 Jane Feliberto Liu MD [address] [id number] 03/24/2024 Jane Dao Assessments Encounter Date Diagnosis (ICD [...] unspecified chronic kidney disease (ICD-10 - I12.9) 12/29/2024 Menopausal and female climacteric states (ICD-10 - N95.1) 01/02/2025 Menopausal and female climacteric states (ICD-10 - N95.1) 01/05/2025 Hypertensive chronic kidney disease with stage 1 through stage 4 chronic kidney disease, or unspecified chronic kidney disease (ICD-10 - I12.9) 03/13/2025 Hypertensive chronic kidney disease with stage 1 through stage 4 chronic kidney disease, or unspecified chronic kidney disease (ICD-10 - I12.9) 09/25/2024 Chronic kidney disease, stage 2 (mild) (ICD-10 - N18.2) Previous GFR noted to be in the 80s. Will repeat GFR level to ensure adequate level at this time 06/21/2024 Hypoparathyroidism, unspecified (ICD-10 - E20.9) See plan above.Patient would benefit from further evaluation by Dr. Hernandez given recurrent kidney stones and previous elevation in calcium and PTH levels, which are now noted to be low per recent ER visit. Patient agreeable with this referral 09/25/2024 Mild intermittent asthma, uncomplicated (ICD-10 - [...] for consultation of panniculectomy per patient's request 09/25/2024 Fibromyalgia (ICD-10 - M79.7) Stable at [...] scheduling this surgery until a later date 09/25/2024 Calculus of kidney (ICD-10 - N20.0) [...] DAYS, INTERPRETATION 07/30/2022 US Thyroid 09/25/2024 Urinalysis, Complete-[id number] 09/25/2024 CBC With Differential/Platelet-097865 PTH, Intact-891719 09/25/2024 Vitamin D, 68-Fnfsyvk-[id number] 09/25/2024 Albumin/Creatinine Ratio,Urine-074565 HCV Antibody RFX to Quant PCR-[id number] Comp. Metabolic Panel ([id number] 2024 LP+Non-HDL Cholesterol-844525 09/25/2024 UA/M w/rflx Culture, Routine-[id number] 07/05 TSH reflex to [id number] 09/25/2024 Next Appt Details Provider Name:Jane Dao , 10/01/2025 08:30:00 AM, [address] [place] [address], [address], [place], [place], [phone], Insurance Providers Payer Name Payer Address Payer Phone Subscriber Number Group Number Insured Name Patient Relationship to Insured Coverage Start Date Coverage End Date [facility] [address] [place] [address] [id number] DrakePatti jara Self - patient is the insured Medical (General) History Medical History History ICD Code asthma - moderate persistent hypertension fibromyalgia PAC's and PVC's kidney stones small aneurysm in left carotid bifurcati on (was [place] [facility] left thyroid nodule vertigo migraine headaches liver cysts Surgical History Surgery Date(Month/Year) multiple kidney surgeries (for kidney st ones) partial hysterectomy (ovaries remain) Mid-urethral sling 03/2023 benign polyp removal 04/2024 Hospitalization History Reason Date(Month/Year) 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
--- OUTSIDE RECORDS SUMMARY | 2025-03-19 20:37 | XMS_ITS | Encounter Summary ---
Demographics Address [address] [place] [address] Mobile Phone Home Phone Email Address Preferred Language Faroese Marital Status Single Latter-Day Affiliation Unknown Race White Additional Race(s) Other Race Ethnic Group or Author Organization [facility] Address [address] [place] [address] Phone Care Team Providers Care Fundraising Sale Representative Name Role Phone Ynes Phipps TWIST TESTER Primary Care Provider [phone] Jane Dao TWIST TESTER Primary Care Provider [phone] Encounter Details Date Type Department Care Team (Late st Contact Info) Description 10/13/2019 Transcribe Orders Virtual Department [address] [place] [address] Clara Moy MD [address] [place] [phone] [email or web address] Cough (Primary Dx); SOB (shortness of breath); [...] 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 Not on file Not on file documented as of this encounter Plan of Treatment Upcoming Encounters Date Type Department Care Team (Late st Contact Info) Description 04/17/2025 2:15 PM EST Office Visit DEPARTMENT OF UROLOGY [address] [facility], [address] [place] [address] Paulie Lockwood MD [address] [place] [address] [email or web address] documented as of this encounter Results * COVID-19 PCR Order (10/14/2019 12:52 PM EDT) Specimen Source NASOPHARYNGEAL SWAB (TWIST TESTER) [facility] COVID-19 Comment [place]S, FATIGUE [facility] COVID Testing Status Sent to [facility] Micro Lab [facility] Other 10/14/2019 12:5 2 PM EDT 10/14/2019 1:26 PM EDT us Clara Moy MD LAB GENERAL ORDERABLES Final Result [facility] [address] [place] [address] documented in this encounter Visit Diagnoses Diagnosis [...] documented as of this encounter Care Teams Fundraising Sale Representative Relationship Specialty Start Date End Date Ynes Phipps NP [address] [place] [address] PCP - General Geriatric Psychiatry 11/11/17 07/09/24 Jane Dao NP [address] [place] [id number] [email or web address] PCP - General Nurse Practitioner 07/10/24 documented as of this encounter Additional Source Comments The information contained in this document represents components of the legal health record. It is not the complete legal health record.[facility]
--- OUTSIDE RECORDS SUMMARY | 2025-03-19 20:37 | XMS_ITS | Encounter Summary ---
Author Organization [facility] Address [address] [place] [address] [address] [place] [address] Phone Care Team Providers Care Wood Veneer Taper Name Role Phone Ynes Phipps APPLICATIONS ENGINEER MANUFACTURING Primary Care Provider [phone] Jane Dao APPLICATIONS ENGINEER MANUFACTURING Primary Care Provider [phone] Encounter Details Date Type Department Care Team (Late st Contact Info) Description 11/12/2020 Transcribe Orders [facility] Neurosurgery [address] [facility] 7th [address], [address] [place] [address] Monik Demarco RN [address] [place] [phone] [email or web address] Social History Tobacco Use Types Packs/Day Years [...] 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 Not on file documented as of this encounter Plan of Treatment Upcoming Encounters Date Type Department Care Team (Late st Contact Info) Description 04/17/2025 2:15 PM EST Office Visit DEPARTMENT OF UROLOGY [address] [facility], [address] [place] [address] Paulie Lockwood MD [address] [place] [phone] [email or web address] documented as of this encounter Visit Diagnoses Not on filedocumented in this encounter Additional Health Concerns Infection Onset Date Last Indicated Resolved Time CoV-Exposed Comment:Recent close contact documented in the Travel/Symptom Screening Form 05/16/2021 05/16/2021 05/27/2021 1:[address] documented as of this encounter Care Teams Wood Veneer Taper Relationship Specialty Start Date End Date Ynes Phipps NP [address] [place] [address] PCP - General Geriatric Psychiatry 11/11/17 07/09/24 Jane Dao NP [address] [address] [email or web address] PCP - General Nurse Practitioner 07/10/24 documented as of this encounter Additional Source Comments The information contained in this document represents components of the legal health record. It is not the complete legal health record.[facility]
--- OUTSIDE RECORDS SUMMARY | 2025-03-19 20:37 | XMS_ITS | Clinical Summary ---
Author Organization [facility] Address [address] [place] [address] Care Team Providers Care Paint Sprayer Sandblaster Name Role Phone Jane Dao MD Primary Care Provider [phone] Allergies Active Allergy Reactions Criticality Noted Date [...] a day. Active Multiple Vitamins-Minera ls (b hvpyfsr-X-V-zin c) tablet Take 1 tablet by mouth every morning. Active levocetirizine (Xyzal Allergy 24HR) 5 MG tablet Take 1 tablet (5 mg total) by mouth every evening. 03/15/2023 Active phentermine 15 MG capsule Take 1 capsule (15 mg total) by mouth every morning. Active levalbuterol (XOPENEX HFA) 45 mcg/puff inhaler INHALE 1 PUFF BY MOUTH EVERY 6 HOURS NEEDED 09/16/2023 Active ondansetron (ZOFRAN) 4 MG tabletIndicatio ns:Left [...] nausea or vomiting. 10 tablet 06/21/2024 Active ibuprofen (MOTRIN) 800 mg tabletIndicatio ns:Calculus of kidney,Left flank pain TAKE 1 TABLET(800 MG) BY MOUTH THREE TIMES DAILY EVERY 8 HOURS NEEDED FOR MILD PAIN 30 tablet 01/19/2025 Active Active Problems Problem Noted Date Diagnosed [...] 06/07/2024 Cirrhosis of liver without ascites 11/26/2023 Family History Medical History Relation Name Comments [...] Cancer, other Maternal Grandmother o f metastatic ENERGY OPERATIONS VICE PRESIDENT-associated cancer, no other details Lung cancer Maternal [...] Aunt 2 [place] Alive Maternal Aunt 3 [place] Alive Maternal Cousin Maternal 1st Cousin Alive [...] 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 [...] (Ages 21-65) 1994 Mammogram 2013 Colonoscopy 2018 RSV Vaccine 50 years and old er and Patients (1 - Risk 50-74 years 1-dose series) 2023 Zoster (Shingles) Vaccine (1 of 2) 2023 Influenza Vaccine 11/03/2024 01/23/2015 COVID-19 Vaccine ( season) 2024, 11/28/2020 Medical Devices Explanted Type [facility] Sales Consultant Device Identifier Shelf Expiration Date Model / Serial / Lot [id number] Stent Ureteral 6fr 26cm Taper Tip Bldr Alvino Lp Contour Hdr+ - [id number] Implanted:Qty : 1 on 06/14/2024 by Casey García MD at Explanted:Qty : 1 on 06/21/2024 by Casey García MD Stent Left: Ureter [email or web address] JOSE [id number] 01/24/2027 [id number] Insurance [facility] Care Teams Paint Sprayer Sandblaster Relationship Specialty Start Date End Date Jane Dao MD [address] [place] [id number] PCP - General General Medicine 05/31/23
--- OUTSIDE RECORDS SUMMARY | 2025-03-19 20:37 | XMS_ITS | Encounter Summary ---
Author Organization [facility] Address [address] [place] [phone] Phone Care Team Providers Care [employer] Name Role Phone Ynes Phipps TEST CELL TECHNICIAN Primary Care Provider [phone] Ynes Phipps TEST CELL TECHNICIAN Primary Care Provider [phone] Jane Dao TEST CELL TECHNICIAN Primary Care Provider [phone] Encounter Details Date Type Department Care Team (Late st Contact Info) Description 08/02/2015 Documentation [facility] Imaging [address] [place] [address] Monik Demarco RN [address] [place] [id number] Social History Tobacco Use Types Packs/Day [...] 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 Not on file [...] Visit DEPARTMENT OF UROLOGY [address] [facility], [address] [place] [id number] Paulie Lockwood MD [address] [place] [phone] [email or web address] documented as of this encounter Visit Diagnoses Not on filedocumented in this encounter Additional Health Concerns Infection Onset Date Last Indicated Resolved Time CoV-Risk 10/13/2019 10/14/2019 10/27/2019 3:34 AM EDT CoV-Exposed Comment:Recent close contact documented in the Travel/Symptom Screening Form 05/16/2021 05/16/2021 05/27/2021 1:[address] documented as of this encounter Care Teams [employer] Relationship Specialty Start Date End Date Ynes Phipps NP [address] [place] [address] PCP - General 07/17/15 11/10/17 Ynes Phipps NP [address] [place] [address] PCP - General Geriatric Psychiatry 11/11/17 07/09/24 Jane Dao NP [address] [place] [phone] [email or web address] PCP - General Nurse Practitioner 07/10/24 documented as of this encounter Additional Source Comments The information contained in this document represents components of the legal health record. It is not the complete legal health record.[facility]
== END 2025-03-19 16:04 | disposition home or self-care (01) ==
PROVIDERS: Physician Assistant Medical; Emergency Provider Emergency Medicine; PCP Nurse Practitioner Family
DX: J20.9 Acute bronchitis, unspecified (principal); R07.2 Precordial pain; J45.909 Unspecified asthma, uncomplicated; R06.02 Shortness of breath; Z79.51 Long term (current) use of inhaled steroids
CPT/HCPCS: 36415; 71046; 80053; 82803; 83735; 85025; 87637; 93005; 99283

== ENCOUNTER → 2025-03-19 10:57 | Outpatient (BNV) | payer BC, SELFPAY | PROVIDERS: PCP Nurse Practitioner Family; Visit Provider Radiology Diagnostic Radiology | DX: R06.02 Shortness of breath (principal) | CPT/HCPCS: 71046 ==

== ENCOUNTER → 2025-03-19 15:36 | Outpatient (BNV) | payer BC, SELFPAY | PROVIDERS: Emergency Provider Emergency Medicine; PCP Nurse Practitioner Family; Visit Provider Internal Medicine Cardiovascular Disease | DX: R06.02 Shortness of breath (principal) | CPT/HCPCS: 93010 ==